=== PATIENT | female | born 1940 | race Hispanic/Latino ===

== ENCOUNTER → 2017-04-18 | Day surgery (SDC) | payer MEDICARE, BC ==
[~2017-04-18] MED LIST: ASPIRIN81 M2 PO; ASPIRIN81 MG; DEXILANT60 MG PO; FISH OIL300 MG PO; FOLIC ACID; GABAPENTIN300 MG PO; METFORMIN HCL500 MG PO; METHOCARBAMOL750 MG PO; METOPROLOL SUCC50 MG PO; MIDAZOLAM HCL 2 MG/2 ML VIAL ONE; MYRBETRIQ25 MG PO; NAPROXEN PO; NAPROXEN250 MG PO; NAPROXEN500 M1 PO; NEXIUM20 MG PO; NEXIUM40 MG; NEXIUM40 MG PO; NISOLDIPINE PO; NISOLDIPINE25.5 MG PO; OCUVITE TABLET1 EAC1 PO; PROPOFOL IV EMULSION 10 MG/ML 50 ML VIAL ONE; REGLAN10 MG PO; TEMAZEPAM15 MG PO; TRUE BIOTIC PO; ULTRAM 50MG50 MG PO; Z FOLIC ACID PO; Z.0.ENABLEX15 MG PO; Z.0.LEVOXYL50 MCG PO; Z.0.LIPITOR40 MG PO; Z.0.METOPROLOL SUCC5 PO; Z.0.OMEPRAZOLE40 MG PO; Z.0.ONE-A-DAY WOME1 PO; Z.0.TYLENOL ARTHRI65 PO; Z.0.ULTRAM50 MG PO; Z.1.LISINOPRIL-HCT1 PO; Z.2.METFORMIN HCL500 PO
== END | disposition home or self-care (01) ==
LOC: OR 06:07
PROVIDERS: ATTEND Internal Medicine Gastroenterology
DX: K92.1 Melena (principal); D12.5 Benign neoplasm of sigmoid colon; K58.9 Irritable bowel syndrome, unspecified; K57.30 Diverticulosis of large intestine without perforation or abscess without bleeding; K64.8 Other hemorrhoids; K21.9 Gastro-esophageal reflux disease without esophagitis; E03.9 Hypothyroidism, unspecified; E11.9 Type 2 diabetes mellitus without complications; I10 Essential (primary) hypertension; E78.5 Hyperlipidemia, unspecified; E66.3 Overweight; M19.90 Unspecified osteoarthritis, unspecified site; F41.9 Anxiety disorder, unspecified; F31.9 Bipolar disorder, unspecified; Z79.82 Long term (current) use of aspirin; Z68.25 Body mass index [BMI] 25.0-25.9, adult; Z80.0 Family history of malignant neoplasm of digestive organs
CPT/HCPCS: 36415; 45385; 82948; 88305; J2250; 45380

== ENCOUNTER → 2017-04-23 | Day surgery (SDC) | payer MEDICARE, BC ==
--- NOTE | 2017-04-15 12:22 | Diagnostic Imaging Report ---
PROCEDURE: Frontal and lateral views of the chest. COMPARISON: 08/24/15 INDICATIONS: PREOPERATIVE CHEST XRAY FOR COLONOSCOPY FINDINGS: Lines/tubes: None. Lungs: The lungs are well inflated and clear. There is no evidence of pneumonia or pulmonary edema. Minimal bibasilar subsegmental atelectasis. Pleura: There is no pleural effusion or pneumothorax. Heart and mediastinum: The heart and the mediastinum are normal. Bones: Limited evaluation due to generalized demineralization. No acute bony abnormality. Degenerative changes of the visualized spine. Evidence of lower thoracic vertebroplasty. Right diaphragmatic eventration. IMPRESSION: 1. No acute cardiopulmonary disease. 2. No significant interval change from prior exam. Dictated by: Levi Arredondo M.D. on 04/15/2017 at 12:30 Electronically approved by: Levi Arredondo M.D. on 04/15/2017 at 12:30
[2017-04-15 12:26] LABS: BASOPHILS # (AUTO) 0.1 (0.0-0.1); BASOPHILS % 0.6 % (0.0-1.0); EOSINOPHILS # (AUTO) 0.2 (0.0-0.4); EOSINOPHILS % 2.1 % (0.0-6.0); HEMATOCRIT 36.5 % (34.2-44.1); HEMOGLOBIN 12.1 g/dL (12.0-16.0); LYMPHOCYTES # (AUTO) 2.5 (1.0-3.2); LYMPHOCYTES % 31.7 % (18.0-39.1); MEAN CORPUSCULAR HEMOGLOBIN 30.9 pg (28-32); MEAN CORPUSCULAR HGB CONC 33.2 g/dL (31-35); MEAN CORPUSCULAR VOLUME 93.4 fL (81-99); MONOCYTES # (AUTO) 0.6 (0.2-0.8); MONOCYTES % 8.3 % (4.4-11.3); NEUTROPHILS # (AUTO) 4.4 (2.1-6.9); NEUTROPHILS % 56.8 % (38.7-80.0); PLATELET COUNT 342 x10e3/uL (140-360); RED BLOOD COUNT 3.91 x10e6/uL (3.6-5.1); RED CELL DISTRIBUTION WIDTH 13.3 % (11.7-14.4)
[2017-04-15 12:40] LABS: ANION GAP 11.9 mmol/L (8-16); BLOOD UREA NITROGEN 17 mg/dL (7-26); BUN/CREATININE RATIO 20 (6-25); CALCIUM 9.6 mg/dL (8.4-10.2); CARBON DIOXIDE 29 mmol/L (22-29); CHLORIDE 101 mmol/L (98-107); CREATININE, SERUM 0.84 mg/dL (0.57-1.11); EST GLOMERULAR FILTRATION RATE > 60 ML/MIN (60-); GLUCOSE 150 mg/dL (74-118); POTASSIUM 3.9 mmol/L (3.5-5.1); SODIUM 138 mmol/L (136-145)
[~2017-04-23] MED LIST changes: +BUPIVACAINE HCL 0.5% INJ 30 ML VIAL INJ ONE; +CEFAZOLIN SOD 1 GM VIAL ONE; +DEXAMETHASONE SOD PHOS INJ 4 MG/ML VIAL ONE; +EPHEDRINE SULFATE INJ 50 MG/10 ML SYR ONE; +FENTANYL CITRATE/PF 100MCG/2 ML INJ ONE; +LIDOCAINE HCL 2% LOCAL INJ 5 ML SDV VIAL INJ ONE; -MIDAZOLAM HCL 2 MG/2 ML VIAL ONE; +MUPIROCIN 2% OINT 22 GM TUBE ONE; +ONDANSETRON HCL INJ 2 MG/ML VIAL ONE; +PROPOFOL IV EMULSION 10 MG/ML 20 ML VIAL ONE; -PROPOFOL IV EMULSION 10 MG/ML 50 ML VIAL ONE; +SEVOFLURANE INHAL SOLN 250 ML PEN BTL ONE
--- NOTE | 2017-04-23 09:25 | Operative Report ---
DATE OF PROCEDURE: April 23, 2017 PREOPERATIVE DIAGNOSIS: Stenosing tenosynovitis of right thumb. POSTOPERATIVE DIAGNOSIS: Stenosing tenosynovitis of right thumb. OPERATION PERFORMED: Tenovaginotomy of right thumb finger. ANESTHESIA: General. HISTORY: The patient is a 76-year-old right hand-dominant female who presents with stenosing tenosynovitis of the right finger that is recalcitrant to conservative treatment. The risks, benefits, and alternatives of treatment were discussed with the patient and she is prepared to undergo the procedure as outlined. DESCRIPTION OF PROCEDURE: The patient was brought to the operating theater. After the induction of adequate general/regional anesthesia, the patient was prepped and draped in a supine position. A time out was performed by the entire operating room team. An oblique incision was marked out over the A1 alexx of the right finger. The upper extremity was exsanguinated, and a tourniquet was inflated to a pressure of 250 mmHg. The incision was made through the skin and subcutaneous tissues. All venous tributaries were controlled with bipolar cautery. The incision was deepened through the palmar tissues. The neurovascular bundles on the radial and ulnar sides of the flexor tendon sheath were identified and retracted away from the flexor tendon sheath and preserved. The A1 alexx of the affected finger was identified and incised longitudinally, taking care to protect and preserve the flexor tendons within the sheath. After the complete length of the alexx had been transected, the tendons were placed in a range of motion. There was noted to be good motion without any locking. The wound was then copiously irrigated with bacteriostatic saline and closed with 5-0 nylon in an interrupted horizontal mattress fashion. A Marcaine field block was performed at the operative site. The tourniquet was deflated. All the fingers pinked up nicely. A sterile bulky conforming bandage was applied to the hand, and the patient was returned to the recovery room in satisfactory condition and was discharged with a postoperative instruction sheet as well as a followup appointment. Job#: [id number] MD
== END | disposition home or self-care (01) ==
LOC: OR 05:17
PROVIDERS: ATTEND Plastic Surgery
DX: M65.311 Trigger thumb, right thumb (principal); E11.9 Type 2 diabetes mellitus without complications; I10 Essential (primary) hypertension; R00.1 Bradycardia, unspecified; F41.9 Anxiety disorder, unspecified; Z01.810 Encounter for preprocedural cardiovascular examination; Z01.812 Encounter for preprocedural laboratory examination; Z01.818 Encounter for other preprocedural examination; Z79.82 Long term (current) use of aspirin
CPT/HCPCS: 26055; 36415 ×2; 71046; 80048; 82948; 85025; 93005; J0690; J1100; J2001; J2405

== ENCOUNTER → 2017-04-30 | Outpatient (CLI) | payer MEDICARE, BC ==
[~2017-04-30] MED LIST changes: -BUPIVACAINE HCL 0.5% INJ 30 ML VIAL INJ ONE; -CEFAZOLIN SOD 1 GM VIAL ONE; -DEXAMETHASONE SOD PHOS INJ 4 MG/ML VIAL ONE; +DIATRIZOATE MEGL/DIATRIZOA SOD 30 ML BTL PO ONE; -EPHEDRINE SULFATE INJ 50 MG/10 ML SYR ONE; -FENTANYL CITRATE/PF 100MCG/2 ML INJ ONE; +IOPAMIDOL 300MG/ML 100 ML INFUS..BTL IV ONE; +IOPAMIDOL 370 MG/ML 200 ML INFUS..BTL INJ ONE; -LIDOCAINE HCL 2% LOCAL INJ 5 ML SDV VIAL INJ ONE; -MUPIROCIN 2% OINT 22 GM TUBE ONE; -ONDANSETRON HCL INJ 2 MG/ML VIAL ONE; -PROPOFOL IV EMULSION 10 MG/ML 20 ML VIAL ONE; -SEVOFLURANE INHAL SOLN 250 ML PEN BTL ONE; +SODIUM CHLORIDE 0.9% 250ML 500 ML ONE; +SODIUM CHLORIDE 0.9% 50ML 50 ML ONE
[2017-04-30 10:56] LABS: CREATININE, SERUM 1.01 mg/dL (0.57-1.11)
--- NOTE | 2017-04-30 13:30 | Diagnostic Imaging Report ---
PROCEDURE: CT ABDOMEN AND PELVIS WITH CONTRAST TECHNIQUE: The abdomen and pelvis were scanned utilizing a multidetector helical scanner from the diaphragm to the lesser trochanter after the IV administration of 100 cc of Isovue 370 and the oral administration of Gastroview and water. Coronal and sagittal multiplanar reformations were obtained. COMPARISON: CT abdomen and pelvis 04/09/2016. INDICATIONS: LEFT LOWER QUADRANT PAIN FINDINGS: LOWER THORAX: Normal. HEPATOBILIARY: No focal hepatic lesions. No biliary ductal dilatation. Cholecystectomy. SPLEEN: No splenomegaly. PANCREAS: No focal masses or ductal dilatation. ADRENALS: No adrenal nodules. KIDNEYS/URETERS: No hydronephrosis, stones, or solid mass lesions. PELVIC ORGANS/BLADDER: Hysterectomy. No right ovary is visualized. Normal left ovary. PERITONEUM / RETROPERITONEUM: No free air or fluid. LYMPH NODES: No lymphadenopathy. VESSELS: Atherosclerotic calcifications. GI TRACT: No distention or wall thickening. Appendectomy. Multiple diverticula are present in the descending and sigmoid colon, without adjacent soft tissue inflammatory changes. BONES AND SOFT TISSUES: Unremarkable. IMPRESSION: 1. No acute abnormality of the abdomen and pelvis. 2. Diverticulosis without evidence of diverticulitis. Dictated by: Von Dos Santos M.D. on 04/30/2017 at 13:39 Electronically approved by: Von Dos Santos M.D. on 04/30/2017 at 13:39
== END ==
LOC: RAD 08:18
PROVIDERS: ATTEND Internal Medicine
DX: R10.32 Left lower quadrant pain (principal); K57.90 Diverticulosis of intestine, part unspecified, without perforation or abscess without bleeding
CPT/HCPCS: 36415; 74177; 82565; 84520; J7050; Q9967

== ENCOUNTER 2018-04-18 16:31 | Inpatient (IN) | payer MEDICARE, BC ==
[~2018-04-18] VITALS: Ht 157.5 cm; Wt 60.1 kg
[~2018-04-18 16:31] MED LIST changes: -DIATRIZOATE MEGL/DIATRIZOA SOD 30 ML BTL PO ONE; -IOPAMIDOL 300MG/ML 100 ML INFUS..BTL IV ONE; -IOPAMIDOL 370 MG/ML 200 ML INFUS..BTL INJ ONE; -SODIUM CHLORIDE 0.9% 250ML 500 ML ONE; -SODIUM CHLORIDE 0.9% 50ML 50 ML ONE
--- OUTSIDE RECORDS SUMMARY | 2018-04-18 16:35 | XMS REPORT ---
Author Author [facility] Address Unknown Phone Unavailable Care Team Providers Care Domestic Helper Name Role Phone ANGELO, LATRELL Unavailable Unavailable JOSE ROUSSEAU Unavailable Unavailable Problems This patient has no known problems. Allergies, Adverse Reactions, Alerts This patient has no known allergies or adverse reactions. Medications This patient has no known medications. Results Test Description Test Time Test Comments Text Results Atomic Results Result Comments SCR MAMM BILATERAL JUAN CAD DIGITAL 2018-02-06 08:06:27 - SCR MAMM BILATERAL JUAN CAD DIGITALBILATERAL DIGITAL SCREENING MAMMOGRAM 3D/2D WITH CAD: 02/05/2018CLINICAL: Asymptomatic. Digital breast tomosynthesis was performed in addition to routine CC and MLO views. Current mammographic images were evaluated by either a [employer] M-Vu or a [employer] ImageChecker CAD (computer aided detection system). Comparison is made to exams dated 01/02/2017 mammogram, 12/29 mammogram, and 12/28/2014 mammogram - [facility]. The tissue of both breasts is predominantly fatty. There are benign vascular calcifications in both breasts. No suspicious mass, architectural distortion, malignant type calcification, or lymph node abnormality detected. Breast architecture is stable compared to prior exams.IMPRESSION: BENIGNThere is no mammographic evidence of malignancy. Resume annual screening mammography in one year. Oumar Menchaca M.D. ss/penrad:02/06/2018 08:06:27 Special Effects Specialist: Ragini BOO, [facility] sent: BIRADS 1-2 Normal Mammogram BI-RADS: [address] ABDOMEN/PELVIS W [address] [address] Patient Name: MARCELLA PORTER MR #: [id number] : 1940 Age/Sex: 76/F Req #: [id number] Adm Physician: Ordered by: LATRELL STEPHENS MD Report #: [id number] Location: [facility] Room/Bed: Procedure: [id number] CT/CT ABDOMEN/PELVIS W Exam Date: 04/30/17 Exam Time: 1134 REPORT STATUS: Signed PROCEDURE: CT ABDOMEN AND PELVIS WITH CONTRAST TECHNIQUE: The abdomen and pelvis were scanned utilizing a multidetector helical scanner from the diaphragm to the lesser trochanter after the IV administration of 100 cc of Isovue 370 and the oral administration of Gastroview and water. Coronal and sagittal multiplanar reformations were obtained. COMPARISON: CT abdomen and pelvis 04/09/2016. INDICATIONS: LEFT LOWER QUADRANT PAIN FINDINGS: LOWER THORAX: Normal. HEPATOBILIARY: No focal hepatic lesions. No biliary ductal dilatation. Cholecystectomy. SPLEEN: No splenomegaly. PANCREAS: No focal masses or ductal dilatation. ADRENALS: No adrenal nodules. KIDNEYS/URETERS: No hydronephrosis, stones, or solid mass lesions. PELVIC ORGANS/BLADDER: Hysterectomy. No right ovary is visualized. Normal left ovary. PERITONEUM / RETROPERITONEUM: No free air or fluid. LYMPH NODES: No lymphadenopathy. VESSELS: Atherosclerotic calcifications. GI TRACT: No distention or wall thickening. Appendectomy. Multiple diverticula are present in the descending and sigmoid colon, without adjacent soft tissue inflammatory changes. BONES AND SOFT TISSUES: Unremarkable. IMPRESSION: 1. No acute abnormality of the abdomen and pelvis. 2. Diverticulosis without evidence of diverticulitis. Dictated by: Taryn Day M.D. on 04/30/2017 at 13:39 Electronically approved by: Taryn Day M.D. on 04/30/2017 at 13:39 Dictated By: TARYN DAY MD [id number] Transcribed By: ASHLEY on 04/30/17 2473 COPY TO: LATRELL STEPHENS MD [place]ST [address] [facility] [address] Patient Name: MARCELLA PORTER MR #: [id number] : 1940 Age/Sex: 76/F Req #: [id number] Adm Physician: Ordered by: JOSE ROUSSEAU MD Report #: [id number] Location: OR Room/Bed: Procedure: [id number] DX/CHEST 2 VIEWS Exam Date: 04/15/17 Exam Time: 1203 REPORT STATUS: Signed PROCEDURE: Frontal and lateral views of the chest. COMPARISON: 08/24/15 INDICATIONS: PREOPERATIVE CHEST XRAY FOR COLONOSCOPY FINDINGS: Lines/tubes: None. Lungs: The lungs are well inflated and clear. There is no evidence of pneumonia or pulmonary edema. Minimal bibasilar subsegmental atelectasis. Pleura: There is no pleural effusion or pneumothorax. Heart and mediastinum: The heart and the mediastinum are normal. Bones: Limited evaluation due to generalized demineralization. No acute bony abnormality. Degenerative changes of the visualized spine. Evidence of lower thoracic vertebroplasty. Right diaphragmatic eventration. IMPRESSION: 1. No acute cardiopulmonary disease. 2. No significant interval change from prior exam. Dictated by: Levi Hauser M.D. on 04/15/2017 at 12:30 Electronically approved by: Levi Hauser M.D. on 04/15/2017 at 12:30 Dictated By: LEVI HAUSRE MD 1230 Transcribed By: ASHLEY on 04/15/17 1230 COPY TO: JOSE ROUSSEAU MD
[2018-04-18 19:05] LABS: BASOPHILS # (AUTO) 0.1 (0.0-0.1); BASOPHILS % 0.6 % (0.0-1.0); EOSINOPHILS # (AUTO) 0.3 (0.0-0.4); EOSINOPHILS % 3.2 % (0.0-6.0); HEMATOCRIT 39.7 % (34.2-44.1); HEMOGLOBIN 13.1 g/dL (12.0-16.0); LYMPHOCYTES # (AUTO) 2.4 (1.0-3.2); LYMPHOCYTES % 27.3 % (18.0-39.1); MEAN CORPUSCULAR HEMOGLOBIN 29.3 pg (28-32); MEAN CORPUSCULAR VOLUME 88.8 fL (81-99); MONOCYTES # (AUTO) 0.7 (0.2-0.8); MONOCYTES % 7.4 % (4.4-11.3); NEUTROPHILS # (AUTO) 5.4 (2.1-6.9); NEUTROPHILS % 61.3 % (38.7-80.0); PLATELET COUNT 270 x10e3/uL (140-360); RED BLOOD COUNT 4.47 x10e6/uL (3.6-5.1); RED CELL DISTRIBUTION WIDTH 16.5 % (11.7-14.4)
[2018-04-18 19:14] LABS: INR 0.92; PARTIAL THROMBOPLASTIN TIME 26.9 seconds (23.8-35.5); PROTHROMBIN TIME 13.2 seconds (11.9-14.5)
[2018-04-18 19:20] LABS: ANION GAP 17.2 mmol/L (8-16); CALCIUM 9.8 mg/dL (8.4-10.2); CREATININE, SERUM 1.07 mg/dL (0.57-1.11); POTASSIUM 3.2 mmol/L (3.5-5.1)
[2018-04-18 19:27] LABS: CREATINE KINASE MB 1.8 ng/mL (0-5.0)
--- NOTE | 2018-04-18 19:55 | Diagnostic Imaging Report ---
Examination: Single AP view of the chest. COMPARISON: Chest 2 views 04/15/2017 INDICATION: Shortness of breath, atrial fibrillation IMPRESSION: 1. Lines and Tubes: None 2. Lungs are well-inflated. No consolidation or effusion. 3. Cardiomediastinal silhouette is normal. Mild central pulmonary venous congestion. 4. No acute bony abnormalities. Signed by: Dr. Jose Mejia M.D. on 04/18/2018 7:51 PM
[2018-04-18] MEDS ORDERED: POTASSIUM CHLORIDE 20 MEQ TAB CR PO ONE (20:45)
[2018-04-18] MEDS ORDERED: ONDANSETRON HCL INJ 2MG/ML 2ML 2 MG/ML VIAL IV PRN (20:45)
[2018-04-18] MEDS ORDERED: DEXTROSE 50% SYRINGE 50 ML IV PRN (20:45)
[2018-04-18] MEDS ORDERED: ENOXAPARIN SODIUM INJ 100 MG/ML SYR SC SCH (20:45)
[2018-04-18] MEDS ORDERED: METOPROLOL TARTRATE 25 MG TAB PO ONE (21:00)
[2018-04-18] MEDS: FAMOTIDINE 20 MG/2 ML VIAL IV SCH (21:41)
[2018-04-18] MEDS: INSULIN LISPRO 100 UNIT/1 ML 3ML VIAL SQ SCH (21:42)
[2018-04-18] MEDS: ENOXAPARIN INJ 80 MG/0.8 ML SYR SC SCH (21:42)
[2018-04-18] MEDS ORDERED: METOPROLOL SUCC50 MG PO ×2 (22:33)
--- NOTE | 2018-04-18 22:45 | NUR ---
Patient arrived on floor via stretcher from ER. Report given to Serenity Mtz RN.
[2018-04-18 22:48] VITALS: BP 156/97
[2018-04-19] VITALS (9 sets, daily range): BP systolic 135–159; BP diastolic 75–98
[2018-04-19 04:03] LABS: CREATINE KINASE MB 1.3 ng/mL (0-5.0)
--- NOTE | 2018-04-19 06:00 | NUR ---
Admit and assessment completed.
[2018-04-19 06:34] LABS: BASOPHILS % 0.6 % (0.0-1.0); EOSINOPHILS # (AUTO) 0.3 (0.0-0.4); EOSINOPHILS % 5.3 % (0.0-6.0); HEMATOCRIT 34.2 % (34.2-44.1); HEMOGLOBIN 11.4 g/dL (12.0-16.0); LYMPHOCYTES # (AUTO) 2.1 (1.0-3.2); LYMPHOCYTES % 33.1 % (18.0-39.1); MEAN CORPUSCULAR HEMOGLOBIN 29.6 pg (28-32); MEAN CORPUSCULAR HGB CONC 33.3 g/dL (31-35); MEAN CORPUSCULAR VOLUME 88.8 fL (81-99); MONOCYTES # (AUTO) 0.6 (0.2-0.8); MONOCYTES % 8.5 % (4.4-11.3); NEUTROPHILS # (AUTO) 3.4 (2.1-6.9); NEUTROPHILS % 52.2 % (38.7-80.0); PLATELET COUNT 245 x10e3/uL (140-360); RED BLOOD COUNT 3.85 x10e6/uL (3.6-5.1); RED CELL DISTRIBUTION WIDTH 16.6 % (11.7-14.4)
[2018-04-19 06:45] LABS: ALANINE AMINOTRANSFERASE 13 IU/L (0-55); ALBUMIN 3.3 g/dL (3.5-5.0); ALKALINE PHOSPHATASE 68 IU/L (40-150); ANION GAP 14.5 mmol/L (8-16); BLOOD UREA NITROGEN 19 mg/dL (7-26); BUN/CREATININE RATIO 23 (6-25); CARBON DIOXIDE 25 mmol/L (22-29); CHLORIDE 104 mmol/L (98-107); CHOL/HDL RATIO 3.3 (3.0-3.6); CHOLESTEROL 131 MD/DL (0-199); CREATININE, SERUM 0.83 mg/dL (0.57-1.11); EST GLOMERULAR FILTRATION RATE > 60 ML/MIN (60-); GLUCOSE 112 mg/dL (74-118); HDL CHOLESTEROL 40 MG/DL (40-60); LDL CHOLESTEROL 62 MG/DL (60-130); MAGNESIUM 1.6 MG/DL (1.3-2.1); POTASSIUM 3.5 mmol/L (3.5-5.1); SODIUM 140 mmol/L (136-145); TRIGLYCERIDES 145 MG/DL (0-149)
[2018-04-19] MEDS ORDERED: CEFTRIAXONE SOD 1 GM/NS 50 ML 50 ML IV SCH (06:45)
[2018-04-19] MEDS ORDERED: POTASSIUM CHLORIDE 20 MEQ TAB CR PO STA (06:56)
[2018-04-19] MEDS ORDERED: LEVOTHYROXINE SODIUM 50 MCG TAB PO SCH (07:30)
[2018-04-19] MEDS: INSULIN LISPRO 100 UNIT/1 ML 3ML VIAL SQ SCH ×4 (07:30→21:00)
[2018-04-19] MEDS ORDERED: CEFTRIAXONE SOD 1 GM VIAL IV SCH (08:00)
--- NOTE | 2018-04-19 08:26 | History and Physical ---
Patient is here for feeling of dyspnea and also trembling inside. HISTORY OF PRESENTING ILLNESS: Ms. Elizabeth Phillips was in usual state of health until about 3 days prior to admission the patient started to have some trembling feeling inside, not quite sure was palpitations but the patient did feel the heart rate was elevated and came into the doctor's office yesterday of primary care physician, Dr. Knapp, and also had some dysuria and urinary symptoms. Patient had started taking her azo for her urinary symptoms of dysuria. Patient's urine was done in the office yesterday and was found to have leukocyte esterase and nitrites too. Patient's current symptoms are better after some fluids. The patient is feeling better right now. PAST MEDICAL HISTORY: History of hypertension, history of low back pain, history of hypothyroidism, history of reflux esophagitis, history of hyperlipidemia, history of insomnia and history of osteoarthritis and DJD. MEDICATIONS: She takes at home are acetaminophen 650 mg daily as needed, aspirin 81 mg, atorvastatin 40 mg at nighttime, esomeprazole 40 mg, folic acid 0.8 mg, levothyroxine 50 mcg, lisinopril/hydrochlorothiazide 20/12.5, methocarbamol 750 mg at nighttime, metoprolol 50 mg ER two tablets daily, Myrbetriq 25 mg daily, multivitamin, nisoldipine 25.5 mg extended release 24 hours, omega-3 acids, temazepam 50 mg, naproxen 500 mg at bedtime. PAST SURGICAL HISTORY: Includes history of partial hysterectomy, bladder suspension, cystocele and rectocele repair, cataract surgery, cholecystectomy, and tonsillectomy. SOCIAL HISTORY: No history of ETOH. No history of IV drug abuse. No history of smoking either. REVIEW OF SYSTEMS: Positive for shortness of breath. No nausea, vomiting, diarrhea. No chest pains. No constipation, no rectal bleeding, no hematochezia, no hematemesis. No diplopia, no blurry vision. No abdominal pain. No paraesthesia, hyperesthesias, or weakness. ALLERGIES: HYDROCODONE. FAMILY HISTORY: History of hypertension and diabetes in first-degree relatives. PHYSICAL EXAMINATION VITAL SIGNS: Pulse is 104, temperature is 97.3, blood pressure is 146/97. HEENT: Normocephalic, atraumatic. Pupils are reactive to light and accommodation. CVS: S1, S2 regular, tachy. NECK: No JVD present. ABDOMEN: Nontender, nondistended. EXTREMITIES: Positive for 1+ edema. LUNGS: Clear to auscultation bilaterally. IMAGING STUDIES: Chest x-ray shows lungs are well inflated. No consolidation or effusion. Cardiomediastinal silhouette is normal. LABORATORY VALUES: White count is 8.77, hemoglobin 13.1, hematocrit of 39.7, and RDW 16.5. Chemistries: Sodium 137, potassium is 3.2, BUN of 25, creatinine of 1.07, estimated GFR of 50. Patient's BNP was 487. Troponins x2 have been negative. ASSESSMENT 1. New-onset atrial fibrillation with rapid ventricular response. 2. Acute systolic congestive heart failure. 3. Possible urinary tract infection. 4. Hypothyroidism. PLAN: At this time, plan is to 1. Culture her urine. 2. Restart her beta blockade. 3. Patient needs to be on anticoagulation. 4. Check echocardiogram. 5. Cardiology, Dr. Garcia, has been consulted. 6. Continue monitoring the patient along with the consultants. 7. For further information, look in the chart and the patient will be expected to stay here for 1 to 2 days. Job#: [id number] KANG
[2018-04-19] MEDS ORDERED: METOPROLOL TARTRATE 25 MG TAB PO SCH (09:00)
[2018-04-19] MEDS ORDERED: LISINOPRIL 20 MG TAB PO SCH (09:00)
[2018-04-19] MEDS ORDERED: HYDROCHLOROTHIAZIDE 25 MG TAB PO SCH (09:00)
[2018-04-19] MEDS: ENOXAPARIN INJ 80 MG/0.8 ML SYR SC SCH ×2 (09:30→21:00)
[2018-04-19] MEDS: FAMOTIDINE 20 MG/2 ML VIAL IV SCH ×2 (09:30→21:00)
[2018-04-19] MEDS: METOPROLOL SUCCINATE 50 MG TAB XL PO SCH (09:30)
[2018-04-19] MEDS: PANTOPRAZOLE SOD 40 MG TABEC PO SCH (09:30)
--- NOTE | 2018-04-19 09:30 | NUR ---
ASSESSMENT COMPLETE NO DISTRESS NOTED, DENIES PAIN AT THIS TIME, R AC 20G NO SS OF INFILTRATION NOTED, RESP EVEN/UNLABORED, UPDATED ON POC VOICED UNDERSTANDING, CALL LIGHT IN REACH WILL CONTINUE TO MONITOR
[2018-04-19] MEDS: CEFTRIAXONE SOD 1 GM/NS 50 ML 50 ML IV SCH ×2 (10:45→22:03)
[2018-04-19 12:46] LABS: CREATINE KINASE 52 IU/L (29-168)
[2018-04-19] MEDS: FUROSEMIDE 40 MG TAB PO SCH (13:00)
[2018-04-19] MEDS: DIGOXIN 0.125 MG TAB PO SCH (13:00)
--- NOTE | 2018-04-19 13:21 | NUR ---
SOCIAL WORK INITIAL ASSESSMENT Welt Insole Channeler to bedside to discuss plan of care with patient/family. CM/SW role and care transitions discussed. Anticipated discharge plan discussed along with duration of care. CM/SW discussed patients right to make decisions in care. CM/SW work hours given. Patient lives: IN OWN HOUSE BY SELF Admit/Transfer: VIA ED FROM HOME POA/Emergency contact: DAUGHTER KATHYA [phone] Current/Previous Home Health: NONE PCP/Follow-up Care: ANGELO Current/Previous DME: ALIVIA Other Services: NONE Employment Status: RETIRED Areas of Concerns: NONE Referral Needs: NONE Education Needs: NONE IMM/MEMBRENO given and signed (if applicable): NA Goal for discharge: RETURN HOME CM/SW left business card at the bedside with contact information. Name and number was also written on the patients whiteboard. Patient verbalized understanding of discussion. CM will follow-up with ongoing discharge and transition of care needs.
--- NOTE | 2018-04-19 13:21 | NUR ---
Nutrition Screen Note RD Recommendation for Physician: Continue diet as ordered Plan of Care: RD following, monitoring for adequacy and tolerance Nutrition reason for involvement: Nutrition Risk Trigger-MST Primary Diagnose(s): Atrial fibrillation Ht: 62in Wt:153lbs BMI:28 kg/m2 IBW:110lbs RD Assessment:(04/19/2018) Initial encounter with patient. Patient reporting a good PO intake. Denies N, V, D nor has any difficulty chewing or swallowing. Current Diet: 1800 ADA Malnutrition Evaluation (04/19/2018) The patient does not meet criteria for a specified degree of malnutrition at this time. Will re-evaluate at follow-up as appropriate. Diet Education Needs Assessment: Diet education not indicated. Diet Adequacy: Meeting calorie needs, Meeting protein needs, Meeting fluid needs Tolerance: Tolerating PO Nutrition Care Level: brenda Romeo RD, LD, [facility]
[2018-04-19] MEDS: ACETAMINOPHEN 325 MG TAB PO PRN (17:08)
--- NOTE | 2018-04-19 18:37 | Consultation ---
DATE OF CONSULTATION: CARDIOLOGY CONSULTATION REASON FOR CONSULTATION: Atrial fibrillation. CONSULTING PHYSICIAN: Dr. Knapp. HISTORY OF PRESENT ILLNESS: Ms. Phillips is a 77-year-old female that is known to Dr. Don Garcia practice and has been in good health until recently. Patient reports that she was doing well; however, for about 3 days prior to her admission, she started developing acute shortness of breath, fatigue, and also palpitations that worsened the more she did. For these reasons, patient went to see Dr. Knapp and also had some complains of dysuria and urinary like symptoms. Urine in the office confirmed that she did have urinary tract infection, of which treatment was initiated; however, an EKG did show new onset of atrial fibrillation with rapid ventricular response. For this reason, patient was admitted. Patient denies any chest pain or palpitations. Does endorse some dizziness and also shortness of breath and fatigue and also endorses bilateral lower extremity edema that has been worsening. PAST MEDICAL HISTORY: Includes hypertension, low back pain, hypothyroidism, reflux, hyperlipidemia, insomnia, osteoarthritis, and degenerative joint disease. SURGICAL HISTORY: Partial hysterectomy, bladder suspension, cataract surgery, cholecystectomy, and tonsillectomy. SOCIAL HISTORY: Denies any alcohol use or illicit drug use. Patient is nonsmoker. REVIEW OF SYSTEMS: Negative except as mentioned above. ALLERGIES: PER ELECTRONIC CHART. FAMILY HISTORY: Noncontributory. PHYSICAL EXAM VITAL SIGNS: Temperature 98.3, pulse 114, respiratory rate 20, blood pressure 159/85, oxygen saturation 95% on room air. GENERAL: Alert and oriented x3, resting comfortably in bed. Does not appear to be in acute distress at this moment. LUNGS: Diminished breath sounds posterior lower lobes. Crackles posterior lower lobes, anterior are clear. CARDIOVASCULAR: Irregular rate and rhythm. ABDOMEN: Soft, nontender. Normoactive bowel sounds. LOWER EXTREMITIES: 2+ nonpitting edema. 2+ pedal pulses. CARDIOVASCULAR MEDICATIONS 1. Lisinopril 40 mg p.o. b.i.d. 2. Metoprolol 100 mg p.o. daily. 3. Lovenox 70 mg subcu q.12 hours. 4. Levothyroxine 50 mcg p.o. daily. 5. Atorvastatin 40 mg p.o. nightly. LABS: WBC 6.46, hemoglobin 11.4, hematocrit 34.2, platelets 245. Sodium 140, potassium 3.5, BUN 19, creatinine 0.83, calcium 9.0. AST 14, ALT 13. Troponin 0.001, CK-MB 1.30, creatine kinase 54. Triglycerides 125, total cholesterol 131, LDL 62, HDL 40. Chest x-ray on admission with lungs well inflated. Cardiomediastinal silhouette is normal. Mild central pulmonary venous congestion. TELEMETRY: Atrial fibrillation with rapid ventricular response. IMPRESSION 1. New onset atrial fibrillation. 2. Acute systolic heart failure. 3. Urinary tract infection. 4. Hypothyroidism. RECOMMENDATIONS: Echocardiogram has been completed, awaiting review. Recommendations to be follow. Continue the above-listed cardiac medications. In addition, add digoxin for rate control and also initiate Lasix for management of heart failure. Continue to support patient with oxygen. Maintain patient on telemetry at all times. Patient will need a left heart cath. This may be done as outpatient given normal cardiac enzymes at this time. We will continue to follow this patient very closely. Dictated by: Kesha Lutz NP Job#: [id number] REYNOLD
--- NOTE | 2018-04-19 19:43 | NUR ---
Received change of shift report from Am nurse. Walking rounds completed.
[2018-04-19] MEDS: TEMAZEPAM 15 MG CAP PO SCH (21:00)
[2018-04-19] MEDS ORDERED: NISOLDIPINE 25.5 MG PO SCH (21:00)
[2018-04-19] MEDS: ATORVASTATIN 40 MG TAB PO SCH (21:00)
[2018-04-20] VITALS (7 sets, daily range): BP systolic 124–164; BP diastolic 62–97
--- NOTE | 2018-04-20 | NUR ---
Patient received sleep meds and became confused and not sure where she was. Oriented patient to place and time. Assessed pt back to room. Patient states she is aware now. Family at bedside sleeping. Patient redirected back to bed.
--- NOTE | 2018-04-20 05:18 | NUR ---
Patient resting quitly at this time. Continue monitor.
[2018-04-20] MEDS: LEVOTHYROXINE SODIUM 50 MCG TAB PO SCH (06:00)
[2018-04-20 06:08] LABS: BASOPHILS % 0.5 % (0.0-1.0); EOSINOPHILS # (AUTO) 0.3 (0.0-0.4); EOSINOPHILS % 5.1 % (0.0-6.0); HEMATOCRIT 35.3 % (34.2-44.1); HEMOGLOBIN 12.3 g/dL (12.0-16.0); LYMPHOCYTES # (AUTO) 1.9 (1.0-3.2); MEAN CORPUSCULAR HGB CONC 34.8 g/dL (31-35); MEAN CORPUSCULAR VOLUME 86.1 fL (81-99); MONOCYTES # (AUTO) 0.5 (0.2-0.8); MONOCYTES % 8.6 % (4.4-11.3); NEUTROPHILS # (AUTO) 3.3 (2.1-6.9); NEUTROPHILS % 54.6 % (38.7-80.0); PLATELET COUNT 238 x10e3/uL (140-360); RED CELL DISTRIBUTION WIDTH 16.4 % (11.7-14.4)
[2018-04-20 06:24] LABS: ANION GAP 12.3 mmol/L (8-16); BLOOD UREA NITROGEN 12 mg/dL (7-26); BUN/CREATININE RATIO 16 (6-25); CARBON DIOXIDE 27 mmol/L (22-29); CHLORIDE 102 mmol/L (98-107); CREATININE, SERUM 0.74 mg/dL (0.57-1.11); EST GLOMERULAR FILTRATION RATE > 60 ML/MIN (60-); GLUCOSE 104 mg/dL (74-118); POTASSIUM 3.3 mmol/L (3.5-5.1); SODIUM 138 mmol/L (136-145)
[2018-04-20] MEDS ORDERED: POTASSIUM CHLORIDE 20 MEQ TAB CR PO STA (07:05)
--- NOTE | 2018-04-20 07:27 | Progress Note ---
DATE SUBJECTIVE: Patient is here for atrial fibrillation and urinary tract infection. Currently asymptomatic. No palpitations. No chest pains. Cardiology has seen the patient and the patient remains afebrile. PHYSICAL EXAMINATION VITAL SIGNS: Temperature is 97.0, pulse is ranging between 100s-110, respirations of 20, blood pressure is 124/73, and pulse oximetry is 94% on 2 liters of nasal cannula. HEENT: Normocephalic and atraumatic. Pupils are reactive to light and accommodation. CVS: S1 irregularly irregular. Tachycardic. LUNGS: Clear to auscultation. ABDOMEN: Nontender and nondistended. EXTREMITIES: No clubbing. No cyanosis. No edema. LABORATORY: Today's white count is 6.6, hemoglobin 12.3, hematocrit of 35.3. Chemistry shows sodium of 138, potassium of 3.3, BUN of 12, creatinine of 0.74. Cardiac enzymes have trended to be negative. MICROBIOLOGY RESULTS: Urine culture is pending. Echocardiogram on the patient shows EF of 45-50%, AFib, LVH and mild aortic insufficiency and mild MR and TR. ASSESSMENT 1. New onset atrial fibrillation. The patient is on metoprolol. 2. Acute systolic heart failure. The patient is started on Lasix. The patient will need anticoagulation. 3. Urinary tract infection. The patient is currently on Rocephin 1 gram q.12h. 4. Hypothyroidism. Continue with levothyroxine and the patient is on 70 mcg q.12h. with anticoagulation. PLAN: Digoxin has been added for rate control. We will continue to monitor the patient. GI prophylaxis and antihypertensives have been restarted. For further information, look in the chart. The patient's culture is pending and Dr. Knapp will see the patient tomorrow. Job#: [id number] LAUREN
[2018-04-20] MEDS: INSULIN LISPRO 100 UNIT/1 ML 3ML VIAL SQ SCH ×4 (07:30→21:00)
--- NOTE | 2018-04-20 08:15 | NUR ---
ASSESSMENT COMPLETE NO DISTRESS NOTED UPDATED ON POC VOICED UNDERSTANDING, DENIES CHEST PAIN AT THIS TIME, NOTIFIED BY TELE HR IN 116-150'S MEDICATED WITH MORNING MEDS, WILL NOTIFY , PT ASYMPTOMATIC AND HAD AMBULATED TO BATHROOM. NO OTHER CO VOICED CALL LIGHT IN REACH WILL CONTINUE OT MONITOR
[2018-04-20] MEDS: LISINOPRIL 20 MG TAB PO SCH (08:17)
[2018-04-20] MEDS: PANTOPRAZOLE SOD 40 MG TABEC PO SCH (08:17)
[2018-04-20] MEDS: FAMOTIDINE 20 MG/2 ML VIAL IV SCH ×2 (08:17→21:00)
[2018-04-20] MEDS: POTASSIUM CHLORIDE 20 MEQ TAB CR PO SCH (08:17)
[2018-04-20] MEDS: ENOXAPARIN INJ 80 MG/0.8 ML SYR SC SCH (08:17)
[2018-04-20] MEDS: FUROSEMIDE 40 MG TAB PO SCH (08:17)
[2018-04-20] MEDS: METOPROLOL SUCCINATE 50 MG TAB XL PO SCH ×2 (08:17→17:00)
[2018-04-20] MEDS: DIGOXIN 0.125 MG TAB PO SCH (08:17)
--- NOTE | 2018-04-20 08:30 | NUR ---
DR. MARSH PAGED RE: PT HIGH HR STATES HE WILL BE HERE.
[2018-04-20] MEDS: APIXABAN 5 MG TABLET PO SCH ×2 (09:00→17:00)
[2018-04-20] MEDS ORDERED: METOPROLOL TARTRATE INJ 1 MG/ML VIAL IV ONE (09:30)
[2018-04-20] MEDS: CEFTRIAXONE SOD 1 GM/NS 50 ML 50 ML IV SCH ×2 (09:48→21:30)
--- NOTE | 2018-04-20 11:32 | Progress Note ---
DATE: CARDIOLOGY PROGRESS NOTE SUBJECTIVE: Patient endorses palpitation and some shortness of breath this morning. Denies any chest pain. OBJECTIVE VITAL SIGNS: Temperature 97.0, pulse 112, respiratory rate 14, blood pressure 125/71, oxygen saturation 95% on 2 liters nasal cannula. GENERAL: Alert and oriented x3, resting comfortably in bed. Does not appear to be in any acute distress. Continues to wear oxygen. LUNGS: Diminished breath sounds posterior lower lobes with some crackles in the right lower lobe, otherwise clear to auscultation. CARDIOVASCULAR: Irregular rate and rhythm. Tachycardic. ABDOMEN: Soft, nontender. Normoactive bowel sounds. LOWER EXTREMITIES: Trace edema bilaterally. 2+ pedal pulses. CARDIOVASCULAR MEDICATIONS 1. Potassium chloride 20 mEq p.o. daily. 2. Digoxin 0.125 mg p.o. daily. 3. Lasix 40 p.o. daily. 4. Lisinopril 40 p.o. daily. 5. Atorvastatin 40 p.o. at bedtime. 6. Apixaban 5 mg p.o. b.i.d. 7. Metoprolol succinate 100 mg p.o. b.i.d. LABS: WBC 6.06, hemoglobin 12.3, hematocrit 35.3, platelets 236. Sodium 138, potassium 3.3, BUN 12, creatinine 0.74, GFR greater than 60, calcium 9.0. TELEMETRY: AFib with RVR. IMPRESSION 1. New onset atrial fibrillation with rapid ventricular response. 2. Acute systolic heart failure. 3. Urinary tract infection. 4. Hypothyroidism. 5. Hypertension. RECOMMENDATIONS: Eliquis initiated today. Continue to monitor any sings and symptoms of breathing. Continue to optimize care for heart failure. Medications adjusted for better rate control of AFib. Continue to monitor this patient on telemetry. Plans for coronary angiogram during this hospitalization given new systolic heart failure. IV metoprolol given this morning, awaiting response. We will continue to monitor this patient very closely. Dictated by: Kesha Lutz NP Job#: [id number] REYNOLD
--- NOTE | 2018-04-20 17:10 | NUR ---
IV INFILTRATED, 20G TO L WRIST X 1 STICK TOLERATED WELL,
--- NOTE | 2018-04-20 17:15 | NUR ---
NURSE CALLED TO RM PT HEART RATE 160'S SPOKE WITH DR MARSH RE: HR NEW ORDERS GIVEN.
--- NOTE | 2018-04-20 17:16 | NUR ---
HR 116, DENIES CHEST PAIN AT THIS TIME, CALL LIGHT IN REACH WILL CONTINUE TO MONITOR
[2018-04-20] MEDS ORDERED: DIGOXIN INJ 0.25 MG/ML 2 ML AMP IV ONE (17:30)
--- NOTE | 2018-04-20 19:18 | NUR ---
Received change of shift report from Am nurse. Walking rounds completed.
--- NOTE | 2018-04-20 19:49 | NUR ---
Patient upout of bed to bedside commode. AAOx3. Denies pain at this time.IV intact. Heart cath tomorrow and consent has been signed. Patient reminded of NPO status after MN. Patient verbalized understanding.
[2018-04-20] MEDS: TEMAZEPAM 15 MG CAP PO SCH (21:00)
[2018-04-20] MEDS: ATORVASTATIN 40 MG TAB PO SCH (21:00)
[2018-04-20] MEDS ORDERED: NISOLDIPINE 25.5 MG PO SCH (21:00)
[2018-04-21] VITALS (25 sets, daily range): BP systolic 81–158; BP diastolic 51–98
--- NOTE | 2018-04-21 05:06 | NUR ---
Patient resting quitly at this time. Continue monitor.
[2018-04-21] MEDS: LEVOTHYROXINE SODIUM 50 MCG TAB PO SCH ×2 (05:12→05:17)
[2018-04-21 06:37] LABS: ANION GAP 16.1 mmol/L (8-16); BLOOD UREA NITROGEN 12 mg/dL (7-26); BUN/CREATININE RATIO 15 (6-25); CALCIUM 9.7 mg/dL (8.4-10.2); CARBON DIOXIDE 29 mmol/L (22-29); CHLORIDE 99 mmol/L (98-107); CREATININE, SERUM 0.78 mg/dL (0.57-1.11); EST GLOMERULAR FILTRATION RATE > 60 ML/MIN (60-); GLUCOSE 92 mg/dL (74-118); POTASSIUM 4.1 mmol/L (3.5-5.1); SODIUM 140 mmol/L (136-145)
--- NOTE | 2018-04-21 07:00 | NUR ---
SHIFT REPORT RECEIVED FROM INVOICE CLASSIFICATION CLERK RN WHILE ROUNDING. PT DENIES NEEDS AT THIS TIME.
[2018-04-21] MEDS: INSULIN LISPRO 100 UNIT/1 ML 3ML VIAL SQ SCH ×4 (07:30→21:00)
[2018-04-21] MEDS: PANTOPRAZOLE SOD 40 MG TABEC PO SCH (09:00)
[2018-04-21] MEDS: FUROSEMIDE 40 MG TAB PO SCH (09:00)
[2018-04-21] MEDS: METOPROLOL SUCCINATE 50 MG TAB XL PO SCH ×2 (09:00→17:00)
[2018-04-21] MEDS: DIGOXIN 0.125 MG TAB PO SCH (09:00)
[2018-04-21] MEDS: APIXABAN 5 MG TABLET PO SCH ×2 (09:00→17:06)
[2018-04-21] MEDS: POTASSIUM CHLORIDE 20 MEQ TAB CR PO SCH (09:00)
[2018-04-21] MEDS: LISINOPRIL 20 MG TAB PO SCH (09:00)
[2018-04-21] MEDS: FAMOTIDINE 20 MG/2 ML VIAL IV SCH ×2 (09:24→21:06)
[2018-04-21] MEDS: CEFTRIAXONE SOD 1 GM/NS 50 ML 50 ML IV SCH ×2 (10:30→22:37)
[2018-04-21] MEDS ORDERED: FENTANYL CITRATE/PF 100MCG/2 ML INJ ONE (11:46)
[2018-04-21] MEDS ORDERED: MIDAZOLAM HCL 2 MG/2 ML VIAL ONE (11:46)
[2018-04-21] MEDS ORDERED: LIDOCAINE HCL 1% LOCAL INJ 20 ML VIAL ONE (11:47)
[2018-04-21] MEDS ORDERED: HEPARIN SOD/SOD CHLORIDE 2,000 ML ONE (11:47)
[2018-04-21] MEDS ORDERED: SODIUM CHLORIDE 0.9% 1000ML 1,000 ML ONE (11:47)
[2018-04-21] MEDS ORDERED: IOPAMIDOL 370 MG/ML 200 ML INFUS..BTL INJ ONE (11:47)
[2018-04-21] MEDS ORDERED: HEPARIN SOD (PORCINE) 1000 UNIT/ML 30ML ONE (12:09)
[2018-04-21] MEDS ORDERED: NITROGLYCERIN/D5W 200 MCG/ML 250 ML ONE (12:09)
--- NOTE | 2018-04-21 12:09 | NUR ---
PT OFF THE UNIT TO EYEDOTTER.
[2018-04-21] MEDS ORDERED: VERAPAMIL HCL 2.5 MG/ML 2 ML VIAL ONE (12:10)
[2018-04-21] MEDS ORDERED: PHENYLEPHRINE HCL 1% 10 MG/ML VIAL ONE ×2 (12:45→12:48)
[2018-04-21] MEDS ORDERED: NITROGLYCERIN 0.4 MG SUBL ONE (12:49)
[2018-04-21] MEDS ORDERED: ONDANSETRON HCL INJ 2MG/ML 2ML 2 MG/ML VIAL ONE (12:50)
[2018-04-21] MEDS ORDERED: METOPROLOL TARTRATE INJ 1 MG/ML VIAL ONE (12:58)
--- NOTE | 2018-04-21 13:47 | Operative Report ---
DATE OF PROCEDURE: April 21, 2018 INDICATIONS FOR PROCEDURE: Acute systolic heart failure, EF less than 30%. PRE-SEDATION ASSESSMENT: The patient's medical history, social history and prior experience with anesthesia was reviewed prior to the procedure. The patient was deemed to be an appropriate candidate for moderate sedation. The risks, the benefits, and alternatives to the procedure were explained to the patient and patient's informed consent was obtained prior to the procedure as documented in the medical record. MEDICATIONS: Please see nursing notes for medications administered during the procedure. PROCEDURES PERFORMED 1. Coronary angiography. 2. Left heart catheterization. PROCEDURE DETAILS: The patient was to the cardiac catheterization laboratory in the fasting state. Right wrist was prepped and draped in a sterile fashion. A 6-Ghanaian slender sheath was inserted into right radial artery using the modified Seldinger technique. Coronary angiography was performed using serial radial catheter, as well as EBU 3.5 5-Ghanaian guide to engage the left coronary artery. Left heart catheterization was performed using serial Leslie radial catheter. All catheters were removed over a wire. Multiple orthogonal views were obtained for each coronary artery. Procedure ended without any complications. SIGNIFICANT FINDINGS: Left main coronary artery was a large vessel. No significant coronary artery disease. LAD was a large vessel and wraps around the apex and 1 large diagonal. There is some mild plaquing and eccentric calcification of the midleft anterior descending artery. However, there is no obstructive coronary artery disease. Left circumflex is a nondominant vessel. Two medium size OM branches with mild plaquing without any significant obstructive CAD. RCA is a large dominant RCA. There is an 80% lesion in the proximal to mid-RCA that is severely calcified. There is a large RPDA and RPL system distally albeit diastolic pressure was 17. ESTIMATED BLOOD LOSS: 50 mL. GRAFTS/IMPLANTS: None. SPECIMENS REMOVED: None. COMPLICATIONS: None. RECOMMENDATIONS 1. TR band with 30 minutes deflation post procedure. 2. Transferred to ICU for better rate control of atrial fibrillation. 3. Plan for coronary intervention of the RCA with CSI atherectomy and stenting at a later date once the patient is hemodynamically improved with better rate control and blood pressure. 4. Followup in the clinic 2 weeks post discharge for further cardiovascular assessment and care. Job#: [id number] PA
--- NOTE | 2018-04-21 15:10 | NUR ---
PT TRANSFER TO ICU AFTER LINOTYPER.
--- NOTE | 2018-04-21 17:24 | NUR ---
MD Yuko Butterfield notified about pt's hypotension, medications held, and hematoma forming under TR band. New orders rec'd, saw R wrist and stated that site was stable, will continue to monitor.
--- NOTE | 2018-04-21 17:57 | NUR ---
Pt ambulated to toilet with assist, used own incontinence pads, confirms that all belongings from room 105 are in bags. Currently sitting in chair, states that she is neither hungry nor nauseous, drinking Diet Coke. Denies pain, SOB, NVD, dizziness.
[2018-04-21] MEDS: TEMAZEPAM 15 MG CAP PO SCH (21:06)
[2018-04-21] MEDS: ATORVASTATIN 40 MG TAB PO SCH (21:06)
[2018-04-22] VITALS (25 sets, daily range): BP systolic 86–141; BP diastolic 64–97
--- NOTE | 2018-04-22 | Progress Note ---
DATE: April 21, 2018 CARDIOLOGY PROGRESS NOTE SUBJECTIVE: No major events overnight. OBJECTIVE: VITAL SIGNS: Temperature 98.4, pulse 94, respiratory rate 24, blood pressure 115/67, satting 95% on 2 liters nasal cannula. GENERAL: Elderly white female, in no acute distress. CARDIOVASCULAR: Regular rate and rhythm. Tachycardic. LUNGS: Clear to auscultation. Diminished breath sounds bilaterally. ABDOMEN: Soft, nontender. EXTREMITIES: Lower extremity, trace edema, 2+ pedal pulses. NEURO AND PSYCH: Alert and oriented to person, place, and time. Normal affect. CARDIOVASCULAR MEDICATIONS: Reviewed. LABORATORY DATA: Reviewed. TELEMETRY DATA: Reviewed. ASSESSMENT AND PLAN: 1. New-onset atrial fibrillation with rapid ventricular response. 2. Acute systolic heart failure. 3. Urinary tract infection. 4. Hypothyroidism. 5. Hypertension. RECOMMENDATIONS: Continue Eliquis, private branch exchange operator to oral amiodarone as patient is now converted to sinus rhythm. Okay to transfer out of the ICU. Plan for coronary angiography prior to discharge. Thank you for this consult. Will continue to follow. Job#: [id number]
[2018-04-22 04:44] LABS: BASOPHILS % 0.5 % (0.0-1.0); EOSINOPHILS # (AUTO) 0.1 (0.0-0.4); EOSINOPHILS % 1.4 % (0.0-6.0); HEMOGLOBIN 12.6 g/dL (12.0-16.0); LYMPHOCYTES # (AUTO) 2.2 (1.0-3.2); LYMPHOCYTES % 32.6 % (18.0-39.1); MEAN CORPUSCULAR HGB CONC 32.3 g/dL (31-35); MONOCYTES # (AUTO) 0.8 (0.2-0.8); MONOCYTES % 11.6 % (4.4-11.3); NEUTROPHILS # (AUTO) 3.6 (2.1-6.9); NEUTROPHILS % 53.6 % (38.7-80.0); PLATELET COUNT 245 x10e3/uL (140-360); RED BLOOD COUNT 4.35 x10e6/uL (3.6-5.1); RED CELL DISTRIBUTION WIDTH 16.1 % (11.7-14.4)
[2018-04-22 04:46] LABS: MEAN CORPUSCULAR VOLUME 89.7 fL (81-99)
[2018-04-22 05:06] LABS: ANION GAP 14.7 mmol/L (8-16); BLOOD UREA NITROGEN 16 mg/dL (7-26); BUN/CREATININE RATIO 20 (6-25); CALCIUM 8.4 mg/dL (8.4-10.2); CARBON DIOXIDE 24 mmol/L (22-29); CHLORIDE 101 mmol/L (98-107); CREATININE, SERUM 0.79 mg/dL (0.57-1.11); EST GLOMERULAR FILTRATION RATE > 60 ML/MIN (60-); GLUCOSE 71 mg/dL (74-118); POTASSIUM 3.7 mmol/L (3.5-5.1); SODIUM 136 mmol/L (136-145)
[2018-04-22] MEDS: LEVOTHYROXINE SODIUM 50 MCG TAB PO SCH (06:06)
[2018-04-22] MEDS: INSULIN LISPRO 100 UNIT/1 ML 3ML VIAL SQ SCH ×4 (07:30→21:18)
[2018-04-22] MEDS: FAMOTIDINE 20 MG/2 ML VIAL IV SCH ×2 (08:02→21:17)
[2018-04-22] MEDS: APIXABAN 5 MG TABLET PO SCH ×2 (08:02→18:03)
[2018-04-22] MEDS: POTASSIUM CHLORIDE 20 MEQ TAB CR PO SCH (08:03)
[2018-04-22] MEDS: DIGOXIN 0.125 MG TAB PO SCH (08:04)
[2018-04-22] MEDS: PANTOPRAZOLE SOD 40 MG TABEC PO SCH (08:04)
[2018-04-22] MEDS: METOPROLOL SUCCINATE 50 MG TAB XL PO SCH (08:04)
[2018-04-22] MEDS: LISINOPRIL 20 MG TAB PO SCH (08:04)
[2018-04-22] MEDS: FUROSEMIDE 40 MG TAB PO SCH (08:04)
--- NOTE | 2018-04-22 08:37 | NUR ---
patient out of bed ambulated to bathroom. afib rvr. hr 160-170's. pt sitting in chair eating breakfast. family at bedside. instructed patient/family to decrease stimuli until po medications start working to lower hr. pt assisted back to bed. c/o of dizziness with elevated hr.
[2018-04-22] MEDS: CEFTRIAXONE SOD 1 GM/NS 50 ML 50 ML IV SCH ×2 (11:30→22:34)
[2018-04-22] MEDS ORDERED: SODIUM CHLORIDE 0.9% 250ML 250 ML ONE (11:44)
--- NOTE | 2018-04-22 20:02 | NUR ---
pt to go to asset availability leader in the morning and to be npo at midnight/. educated patient and family
--- NOTE | 2018-04-22 20:14 | NUR ---
nusing report given to maintenance technician 3rd shift
--- NOTE | 2018-04-22 20:24 | Progress Note ---
DATE: April 22, 2018 CARDIOLOGY PROGRESS NOTE SUBJECTIVE: No major events overnight. No chest pain. OBJECTIVE: VITAL SIGNS: Temperature 98.3, pulse 105, blood pressure 120/77, satting 95% on room air. GENERAL: Elderly female, in no acute distress. CARDIOVASCULAR: Irregular rate and rhythm. No murmurs, rubs, or gallops. LUNGS: Clear to auscultation bilaterally. ABDOMEN: Soft, nontender, nondistended. NEURO AND PSYCH: Alert and oriented to person, place, and time. Normal affect. CARDIOVASCULAR MEDICATIONS: Reviewed. LABORATORY DATA: Reviewed. IMAGING DATA: Reviewed. TELEMETRY DATA: Reviewed, shows AFib with RVR. ASSESSMENT AND PLAN: 1. Atrial fibrillation with rapid ventricular response. 2. Acute systolic heart failure. 3. Urinary tract infection. 4. Hypothyroidism. 5. Hypertension. 6. Coronary artery disease. RECOMMENDATIONS: Continue optimal medical therapy. Coronary angiography showed 1-vessel CAD of the RCA. Will plan for atherectomy and PCI of the RCA likely tomorrow. Up-titrate metoprolol given AFib with RVR. Thank you for this consult. Will continue to follow. Job#: [id number]
[2018-04-22] MEDS: ATORVASTATIN 40 MG TAB PO SCH (21:17)
[2018-04-22] MEDS: TEMAZEPAM 15 MG CAP PO SCH (21:17)
--- NOTE | 2018-04-22 23:27 | NUR ---
Patient disconnected iv tubing from iv while antibiotic infusing. Small wet area noted to patient gown, majority of antibiotic infused. Patient also removed coban wrap from iv site. New gown placed on patient and coban wrap to IV site, site flushes without difficulty and not leaking. Now states that IV needs to be raplaced because it "infiltrated" and that is why it was all wet earlier, attempted to explain to patient that this was not the case and it was wet because she had disconnected it and removed the bandage. States that she only took it off because it was all wet and infiltrated. Again tried to assure her that it was not infiltrated, patient became angry and stated "Fine I will just tell the doctor that you didn't want to do anything about it".
[2018-04-23] VITALS (23 sets, daily range): BP systolic 92–154; BP diastolic 57–107
--- NOTE | 2018-04-23 02:28 | NUR ---
OOB TO TOILET, HR BRIEFLY UP TO 150s, BACK TO BELOW 120 AFTER BACK IN BED
[2018-04-23] MEDS: METOPROLOL TARTRATE INJ 1 MG/ML VIAL IV PRN (02:33)
--- NOTE | 2018-04-23 04:41 | NUR ---
PATIENT BATHED WITH CHG WIPES IN PREPARATION FOR HEART CATH TODAY
[2018-04-23 04:55] LABS: BASOPHILS % 0.4 % (0.0-1.0); EOSINOPHILS # (AUTO) 0.2 (0.0-0.4); EOSINOPHILS % 1.9 % (0.0-6.0); HEMATOCRIT 38.2 % (34.2-44.1); HEMOGLOBIN 12.8 g/dL (12.0-16.0); LYMPHOCYTES # (AUTO) 2.1 (1.0-3.2); LYMPHOCYTES % 22.8 % (18.0-39.1); MEAN CORPUSCULAR HEMOGLOBIN 29.4 pg (28-32); MEAN CORPUSCULAR HGB CONC 33.5 g/dL (31-35); MEAN CORPUSCULAR VOLUME 87.8 fL (81-99); MONOCYTES % 11.1 % (4.4-11.3); NEUTROPHILS # (AUTO) 5.7 (2.1-6.9); NEUTROPHILS % 63.5 % (38.7-80.0); PLATELET COUNT 271 x10e3/uL (140-360); RED BLOOD COUNT 4.35 x10e6/uL (3.6-5.1); RED CELL DISTRIBUTION WIDTH 15.9 % (11.7-14.4)
[2018-04-23 05:10] LABS: ANION GAP 14.6 mmol/L (8-16); BLOOD UREA NITROGEN 14 mg/dL (7-26); BUN/CREATININE RATIO 17 (6-25); CALCIUM 8.8 mg/dL (8.4-10.2); CARBON DIOXIDE 25 mmol/L (22-29); CHLORIDE 96 mmol/L (98-107); CREATININE, SERUM 0.84 mg/dL (0.57-1.11); EST GLOMERULAR FILTRATION RATE > 60 ML/MIN (60-); GLUCOSE 123 mg/dL (74-118); POTASSIUM 3.6 mmol/L (3.5-5.1); SODIUM 132 mmol/L (136-145)
[2018-04-23] MEDS: LEVOTHYROXINE SODIUM 50 MCG TAB PO SCH (06:26)
[2018-04-23] MEDS: INSULIN LISPRO 100 UNIT/1 ML 3ML VIAL SQ SCH ×4 (07:30→21:00)
[2018-04-23] MEDS: DIGOXIN 0.125 MG TAB PO SCH (08:15)
[2018-04-23] MEDS: METOPROLOL SUCCINATE 50 MG TAB XL PO SCH (08:15)
[2018-04-23] MEDS: FAMOTIDINE 20 MG/2 ML VIAL IV SCH ×2 (08:15→21:07)
[2018-04-23] MEDS: APIXABAN 5 MG TABLET PO SCH (09:00)
[2018-04-23] MEDS: POTASSIUM CHLORIDE 20 MEQ TAB CR PO SCH (09:00)
[2018-04-23] MEDS: LISINOPRIL 20 MG TAB PO SCH (09:00)
[2018-04-23] MEDS: FUROSEMIDE 40 MG TAB PO SCH (09:00)
[2018-04-23] MEDS: PANTOPRAZOLE SOD 40 MG TABEC PO SCH (09:00)
[2018-04-23] MEDS: ACETAMINOPHEN 325 MG TAB PO PRN (10:15)
[2018-04-23] MEDS: CEFTRIAXONE SOD 1 GM/NS 50 ML 50 ML IV SCH ×2 (10:53→22:08)
--- NOTE | 2018-04-23 14:00 | NUR ---
pt departed ICU to laborer pipeline. transported by laborer pipeline nurse x 2 in stable condition
--- NOTE | 2018-04-23 14:00 | NUR ---
pt transferred to quality control lab technician with quality control lab technician nurse x 2 via bed in stable condition.
[2018-04-23] MEDS ORDERED: MIDAZOLAM HCL 2 MG/2 ML VIAL ONE ×2 (14:16→15:34)
[2018-04-23] MEDS ORDERED: FENTANYL CITRATE/PF 100MCG/2 ML INJ ONE ×2 (14:16→16:25)
[2018-04-23] MEDS ORDERED: HEPARIN SOD/SOD CHLORIDE 2,000 ML ONE (14:16)
[2018-04-23] MEDS ORDERED: SODIUM CHLORIDE 0.9% 1000ML 1,000 ML ONE ×2 (14:16→14:22)
[2018-04-23] MEDS ORDERED: LIDOCAINE HCL 1% LOCAL INJ 20 ML VIAL ONE (14:16)
[2018-04-23] MEDS ORDERED: VERAPAMIL HCL 2.5 MG/ML 2 ML VIAL ONE (14:25)
[2018-04-23] MEDS ORDERED: ATROPINE SULFATE 0.1 MG/ML 10ML SYR ONE (15:10)
[2018-04-23] MEDS ORDERED: NOREPINEPHRINE 8 MG/D5W 250 ML 250 ML ONE (16:17)
[2018-04-23] MEDS ORDERED: CLOPIDOGREL BISULFATE 75 MG TAB ONE (16:27)
[2018-04-23] MEDS ORDERED: ASPIRIN 325 MG TAB ONE (16:42)
--- NOTE | 2018-04-23 18:02 | NUR ---
Called Dr. Ty to confirm Boni order d/t pt recently rec'd Plavix 600mg and ASA 325mg. Rec'd T.O. to give Boni as ordered. LIYA Ty/Lico CESPEDES Addendum: 04/23/18 at 1810 by Arcelia Raya RN Boni conner\josh'dalila by Dr. Yuko Butterfield at this time
--- NOTE | 2018-04-23 18:30 | NUR ---
started withdrawing 2cc air from TR band. will remove 2cc Q 10min as ordered per Dr. Yuko Butterfield
--- NOTE | 2018-04-23 18:38 | Progress Note ---
DATE: April 23, 2018 CARDIOLOGY PROGRESS NOTE SUBJECTIVE: No major events overnight. OBJECTIVE: VITAL SIGNS: Temperature 98.7, heart rate 96, respiratory rate 23, blood pressure 139/88, satting 96% on 2 liters nasal cannula. GENERAL: Elderly female in no acute distress. CARDIOVASCULAR: Irregular rate and rhythm. No murmurs, rubs or gallops. LUNGS: Clear to auscultation bilaterally. ABDOMEN: Soft, nontender, nondistended. NEURO AND PSYCH: Alert and oriented to person, place and time. Normal affect. LABORATORY DATA: Reviewed. TELEMETRY DATA: Reviewed. INPATIENT MEDICATIONS: Reviewed. ASSESSMENT AND PLAN: 1. Atrial fibrillation with rapid ventricular response. 2. Acute systolic heart failure. 3. Urinary tract infection. 4. Hypothyroidism. 5. Hypertension. 6. Coronary artery disease with a 90% calcified lesion of the right coronary artery. PLAN: Continue optimal medical therapy. Status post atherectomy of the RCA. However, could not cross with a stent or a balloon. Will need a staged procedure with support in the future. Continue aspirin and Plavix. Will hold apixaban for now. Thank you for this consult. Will continue to follow. Job#: [id number] EV
--- NOTE | 2018-04-23 19:00 | NUR ---
Bedside report received from Arcelia CESPEDES. Pt received resting in bed AAOx3, placed pt on n/c 2L per pt reports. Pt diaper and pad changed at this time. No signs of distress noted. TR band 3ml air removed - no bleeding noted.
--- NOTE | 2018-04-23 19:15 | NUR ---
3ml air removed from TR band - no bleeding noted.
--- NOTE | 2018-04-23 19:30 | NUR ---
3ml air removed from TR band no bleeding noted.
--- NOTE | 2018-04-23 19:45 | NUR ---
2ml air removed from TR band, no bleeding noted.
--- NOTE | 2018-04-23 20:00 | NUR ---
TR band removed and gauze and coban pressure dressing applied. No bleeding noted. Capillary refill to fingers <3 seconds, radial pulse present.
--- NOTE | 2018-04-23 20:30 | NUR ---
Right wrist dressing remains intact, no bleeding noted.
[2018-04-23] MEDS: ATORVASTATIN 40 MG TAB PO SCH (21:07)
[2018-04-23] MEDS: TEMAZEPAM 15 MG CAP PO SCH (21:07)
--- NOTE | 2018-04-23 21:30 | NUR ---
Pt assisted to toilet, voided, gas, and small BM smear. Pt assisted back to bed. No distress noted. Pt on 2L n/c spo2 98%.
[2018-04-24] VITALS (21 sets, daily range): BP systolic 92–156; BP diastolic 54–103
--- NOTE | 2018-04-24 01:50 | Operative Report ---
DATE OF PROCEDURE: April 23, 2018 CARDIOLOGY CATHETERIZATION REPORT INDICATION FOR PROCEDURE: Cardiomyopathy and coronary artery disease. PREPROCEDURE ASSESSMENT: The risks, the benefits, and alternatives of the procedure were explained to the patient and her family prior to the procedure. Informed consent was obtained as documented in the medical record. Patient's medical history, social history, prior experience with anesthesia were reviewed prior to the procedure, and patient was deemed to be an appropriate candidate for moderate sedation. PROCEDURES PERFORMED: 1. Coronary angiography, right radial approach. 2. Percutaneous coronary intervention to the right coronary artery with atherectomy with Diamondback 360 device. PROCEDURE DETAILS: Patient was brought to the cardiac catheterization laboratory in a fasting state. Right wrist was prepped and draped in a sterile fashion. Access to the right radial artery was obtained using modified Seldinger technique. For PCI of the RCA, initially we used JR4 guide, although the guide was able to engage the RCA, there was little to no guide support, so we exchanged this for DAVIDsTEA right guide. The lesion was wired using a ChoICE PT floppy 0.014 guidewire. We attempted to cross the lesion with 2.0 x 12 mm balloon to exchange for a ViperWire, however, we were unable to cross with the balloon. We exchanged the ChoICE PT for guidewire. We were still unable to cross with a small 2.0 x 12 mm balloon. No microcatheters were available to attempt to crossing with a microcatheter. We then decided to add additional support by using a GuideLiner, however, despite using a GuideLiner and a 1.2 mm balloon, we were still unable to cross the lesion. We then decided to wire the lesion using the ViperWire to directly perform atherectomy. We were successfully able to wire the lesion with a ViperWire and performed atherectomy at low speed in 10-second intervals. We made some progress, however, patient became bradycardic and very hypotensive with even short attempt to perform atherectomy. Procedure at this point was aborted. We attempted to pass a balloon after performing partial atherectomy of the RCA, however, we were still unable to advance even the smallest balloon available to us despite using josue wire and GuideLiner techniques. Procedure at this point was aborted. There was CAPRICE-3 flow at the end of the procedure in the RCA. Patient was asymptomatic. Blood pressure and heart rate improved without any issues. All catheters were removed over a wire, and access site was closed using a TR band device. ESTIMATED BLOOD LOSS: 100 mL. SPECIMEN REMOVED: None. GRAFTS AND IMPLANTS: None. COMPLICATIONS: None. CONCLUSION: 1. Partial atherectomy of the mid right coronary artery using CSI Diamondback 360 device successful, however, unable to cross with a balloon or stent afterwards, requires further debulking, however, this will require a ventricular support device as well as probable rotablator atherectomy. Will plan for this for next week at a different facility as this equipment is not available at this institution. 2. Continue dual antiplatelet therapy with aspirin 81 and Plavix 75 daily. Will hold apixaban for now given high risk of bleeding with triple therapy. Observe overnight in the intensive care unit. If doing well, will plan for transfer out of the intensive care unit tomorrow. After medical therapy is optimized, patient to be discharged on Saturday or Saturday. 3. Follow up in clinic 2 days after discharge for further discussion and finding of high-risk percutaneous coronary intervention with Impella support. Thank you for this consult. Will continue to follow. Job#: [id number]
[2018-04-24] MEDS: METOPROLOL TARTRATE INJ 1 MG/ML VIAL IV PRN ×2 (04:21→13:05)
[2018-04-24] MEDS: LEVOTHYROXINE SODIUM 50 MCG TAB PO SCH (06:00)
--- NOTE | 2018-04-24 07:24 | Progress Note ---
DATE: SUBJECTIVE: This patient is here for new-onset atrial fibrillation, acute systolic heart failure, hypothyroidism, and urinary tract infection. Patient underwent a cardiac cath yesterday by Dr. Butterfield. Findings as per chart. PHYSICAL EXAMINATION: VITAL SIGNS: Today, temperature is afebrile, 98.2; pulse of 112; respiration of 19; blood pressure is 126/69; pulse oximetry at 98% on 2 liters of nasal cannula. HEENT: Normocephalic, atraumatic. Pupils are reactive to light and accommodation. CARDIOVASCULAR: Irregularly irregular, is tachycardic. LUNGS: Clear to auscultation bilaterally. ABDOMEN: Soft, nontender, nondistended. EXTREMITIES: No clubbing, no cyanosis. Trace edema. NEURO-PSYCH: Normal. No sensory motor deficits noted. LABORATORY VALUES: Reviewed, and telemetry is AFib with RVR at this time. ASSESSMENT: 1. Atrial fibrillation with rapid ventricular response. Patient is status post cardiac catheterization, did find 90% calcification of the right coronary artery, status post attempted atherectomy status, and was unable to stent the right coronary artery. 2. Systolic heart failure, acute. 3. Urinary tract infection. 4. Hypothyroidism. 5. Hypertension. PLAN: To continue with Plavix and aspirin. Continue with metoprolol for rate control. Patient is on ceftriaxone for her urinary tract infection. Urine culture showed no growth in 34 to 48 hours. Will discontinue the Rocephin at this time. Further recommendations per clinical course and also will depend on cardiology. Patient can be moved out of the ICU today. Job#: [id number]
[2018-04-24] MEDS: INSULIN LISPRO 100 UNIT/1 ML 3ML VIAL SQ SCH ×4 (07:30→20:24)
[2018-04-24] MEDS: FUROSEMIDE 40 MG TAB PO SCH (08:11)
[2018-04-24] MEDS: POTASSIUM CHLORIDE 20 MEQ TAB CR PO SCH (08:11)
[2018-04-24] MEDS: LISINOPRIL 20 MG TAB PO SCH (08:11)
[2018-04-24] MEDS: METOPROLOL SUCCINATE 50 MG TAB XL PO SCH (08:11)
[2018-04-24] MEDS: PANTOPRAZOLE SOD 40 MG TABEC PO SCH (08:11)
[2018-04-24] MEDS: CLOPIDOGREL BISULFATE 75 MG TAB PO SCH (08:11)
[2018-04-24] MEDS: DIGOXIN 0.125 MG TAB PO SCH (08:11)
[2018-04-24] MEDS: FAMOTIDINE 20 MG/2 ML VIAL IV SCH ×2 (08:11→20:28)
[2018-04-24] MEDS: ASPIRIN 81 MG CHEW TAB PO SCH (09:57)
[2018-04-24] MEDS ORDERED: FUROSEMIDE INJ 10 MG/ML 4 ML VIAL IV ONE (10:00)
--- NOTE | 2018-04-24 15:33 | NUR ---
Nutrition Screen Note RD Recommendation for Physician: -Continue cardiac diet as ordered Plan of Care: RD following, monitoring for adequacy and tolerance Nutrition reason for involvement: Follow up Primary Diagnose(s): Atrial fibrillation Hx: hypertension, low back pain, hypothyroidism, reflux esophagitis, hyperlipidemia, insomnia and osteoarthritis and DJD Ht: 62in Wt:153lbs BMI:28 kg/m2 IBW:110lbs RD Assessment: (04/24/2018) Chart reviewed. Pt was discussed during rounds. Pt underwent a cardiac cath yesterday. Currently on Lasix. Visited pt in the room. Pt reports appetite being not so good due to diet preferences. Encouraged family to bring foods from home. No GI complains noted. LBM 04/24. Pt denies any chewing or swallowing difficulty. No recent weight loss reported. Will continue to monitor and follow. (04/19/2018) Initial encounter with patient. Patient reporting a good PO intake. Denies N, V, D nor has any difficulty chewing or swallowing. Current Diet: cardiac diet Malnutrition Evaluation (04/19/2018) The patient does not meet criteria for a specified degree of malnutrition at this time. Will re-evaluate at follow-up as appropriate. Diet Education Needs Assessment: Diet education not indicated. Diet Adequacy: Not meeting calorie needs, Not meeting protein needs Tolerance: Tolerating PO Nutrition Care Level: brenda Stringer, MS, RD, LD
[2018-04-24] MEDS ORDERED: METOPROLOL SUCCINATE 50 MG TAB XL PO SCH (17:00)
--- NOTE | 2018-04-24 19:35 | Progress Note ---
DATE: April 24, 2018 CARDIOLOGY PROGRESS NOTE SUBJECTIVE: Had attempted atherectomy of her RCA yesterday. No chest pain or shortness of breath. OBJECTIVE: VITAL SIGNS: Temperature 98.5, pulse 98, respiratory rate 20, blood pressure 156/89, satting 99% on room air. GENERAL: Elderly female, in no acute distress. CARDIOVASCULAR: Irregular, tachycardic. No murmurs, rubs, or gallops. LUNGS: Clear to auscultation. ABDOMEN: Soft, nontender, nondistended. NEURO AND PSYCH: Alert and oriented to person, place, and time. Normal affect. INPATIENT MEDICATIONS: Reviewed. LABORATORY DATA: Reviewed. IMAGING DATA: Reviewed. INPATIENT CARDIOVASCULAR MEDICATIONS: Reviewed. TELEMETRY DATA: Reviewed, shows AFib with RVR. ASSESSMENT: 1. Atrial fibrillation with rapid ventricular response. 2. Coronary artery disease. 3. Acute systolic heart failure. 4. Urinary tract infection. 5. Hypothyroidism. 6. Hypertension. PLAN: Continue optimal medical therapy. Will increase metoprolol to 150 mg b.i.d. Continue aspirin and Plavix. Will hold apixaban for now given high risk of bleeding with triple therapy. Thank you for this consult. Will continue to follow. Job#: [id number]
--- NOTE | 2018-04-24 19:45 | NUR ---
ASSISTED PATIENT TO COMMODE AND HEART RATE WENT TO 170s INFORMED HER THAT I WILL NOT BE LETTING HER GET UP OUT OF BED ANYMORE ON MY SHIFT
[2018-04-24] MEDS: ATORVASTATIN 40 MG TAB PO SCH (20:28)
[2018-04-24] MEDS: TEMAZEPAM 15 MG CAP PO SCH (20:29)
--- NOTE | 2018-04-24 23:00 | NUR ---
SPONGE BATH GIVEN WITH LINEN CHANGE, PLACED A PUREWICK INBETWEEN THE VAGINAL LABIAS AND PLACED A BRIEF. PLACED SCDs ON PATIENT AFTER BATH WAS GIVEN. WHEN PATIENT WAS BRUSHING HER TEETH WHILE IN BED HER HEART RATE WENT TO THE 130s. SHE HAD NO COMPLAINTS OF CHEST PAIN WHEN HEART RATE WENT UP AT THIS TIME AND NO COMPLAINTS WHEN HER HEART RATE WENT TO THE 170s EARLIER. I STARTED ANOTHER 20G IV HEPLOCK TO RIGHT AC ATTEMPTED ONLY ONCE AND PATIENT TOLERATED WELL.
[2018-04-25] VITALS (16 sets, daily range): BP systolic 101–145; BP diastolic 58–95
[2018-04-25] MEDS: METOPROLOL TARTRATE INJ 1 MG/ML VIAL IV PRN (00:10)
--- NOTE | 2018-04-25 06:25 | NUR ---
DR ELLSWORTH ROUNDED FOR THE PATIENTs ATTENDING AT THIS TIME. INFORMED HIM OF PATIENTs HR WHEN SHE IS DOING ANY KIND OF ACTIVITY IN BED AND HR HIGHER WHEN UP OUT OF BED. ALSO GAVE HIM A BRIEF UPDATE ON STATUS AND PLANS THAT PATIENT TO BE TRANSFERRED TO FLOOR WITH TELEMETRY TODAY AND ONCE STABLE TO BE DISCHARGED AND THEN PATIENT TO BE SENT TO [facility] FOR THE 3RD ATTEMPT ON HEART CATH. I ASKED FOR CLARIFICATION IF PATIENT WILL BE DISCHARGED FROM HERE THEN FOR PATIENT TO GO TO [facility] OR IF PATIENT TO BE TRANSFERRED FROM HERE AND SENT TO [facility], DR ELLSWORTH INFORMED THAT HE WILL SPEAK TO DR MARTINEZ CONCERNING THE TRANSFER TO [facility]. DR ELLSWORTH INFORMED ME TO PLACE ORDERS FOR HER TO BE TRANSFERRED TO [facility] WITH TELE
--- NOTE | 2018-04-25 06:47 | Progress Note ---
DATE: The patient is here for AFib with RVR. The patient had a cardiac cath with balloon. It was unsuccessful to stent the RCA. The patient currently still complains of palpitations on walking to the bathroom. Telemetry showed AFib with RVR at 120 on minimal exertion. The patient is currently asymptomatic. No chest pains. No shortness of breath. No palpitations even. There are no other complaints otherwise. OBJECTIVE VITAL SIGNS: Temperature is 98.2, pulse is 98, respirations of 18, blood pressure is 136/87, pulse oximetry of 98% on room air. HEENT: Normocephalic and atraumatic. Pupils are reactive to light and accommodation. CV: S1 and S2 regular. Tachycardic. ABDOMEN: Nontender and nondistended. EXTREMITIES: No clubbing. No cyanosis. No edema. MEDICATIONS 1. Temazepam at nighttime. 2. Atorvastatin 40. 3. Famotidine 20. 4. Insulin protocol. 5. Metoprolol 2.5 mg IV as needed. 6. She is also on metoprolol 150 mg twice a day. 7. Levothyroxine 15 mcg. 8. Furosemide 40 mg. 9. The patient is currently also on digoxin 0.125 mg. 10. Potassium chloride. LABORATORY VALUES: From yesterday, are normal. Chemistry: Blood sugars are holding. Coags are normal. The patient has been taken off Eliquis at this time. ASSESSMENT 1. Atrial fibrillation with rapid ventricular response. 2. Coronary artery disease: Status post cardiac catheterization and angiography. 3. Acute systolic heart failure. 4. Urinary tract infection. 5. Hypothyroidism. 6. Hypertension. PLAN: Continue the metoprolol 150 mg twice a day, digoxin 0.125 mg daily. The patient is also on diuretic. Eliquis has been taken off. For urinary tract infection, the patient's Rocephin has been stopped. Hypertension, continue on antihypertensive medications and CV medications. Further recommendations per clinical course. Will continue to monitor the patient. The plan is to discharge the patient to the floor and/or to medical facility with ability to do the staged procedure. Further recommendations per clinical course. Will discuss with Dr. Butterfield. Job#: [id number] VT
[2018-04-25] MEDS: LEVOTHYROXINE SODIUM 50 MCG TAB PO SCH (07:13)
[2018-04-25] MEDS: INSULIN LISPRO 100 UNIT/1 ML 3ML VIAL SQ SCH ×4 (07:30→20:28)
[2018-04-25] MEDS: DIGOXIN 0.125 MG TAB PO SCH (08:40)
[2018-04-25] MEDS: FUROSEMIDE 40 MG TAB PO SCH (08:40)
[2018-04-25] MEDS: POTASSIUM CHLORIDE 20 MEQ TAB CR PO SCH (08:40)
[2018-04-25] MEDS: CLOPIDOGREL BISULFATE 75 MG TAB PO SCH (08:40)
[2018-04-25] MEDS: LISINOPRIL 20 MG TAB PO SCH (08:40)
[2018-04-25] MEDS: FAMOTIDINE 20 MG/2 ML VIAL IV SCH ×2 (08:40→20:27)
[2018-04-25] MEDS: ASPIRIN 81 MG CHEW TAB PO SCH (08:40)
[2018-04-25] MEDS: METOPROLOL SUCCINATE 50 MG TAB XL PO SCH ×2 (08:41→16:45)
[2018-04-25] MEDS: PANTOPRAZOLE SOD 40 MG TABEC PO SCH (08:41)
--- NOTE | 2018-04-25 13:17 | NUR ---
RCD PT FROM ICU BY BED PT IS ALERT AND ORIENTED VITALS CHECKED PT RESTING ON BED FAMILY AT BED SIDE BED LOW AND LOCKED CALL LIGHT IN REACH
--- NOTE | 2018-04-25 13:25 | NUR ---
PATIENT TRANSFERRED TO ROOM 213 IN STABLE CONDITION
--- NOTE | 2018-04-25 16:11 | Progress Note ---
DATE: April 25, 2018 SUBJECTIVE: No major events overnight. No chest pain or shortness of breath. OBJECTIVE VITAL SIGNS: Temperature afebrile, pulse 94, respiratory rate 18, blood pressure 110/70, satting 98% on room air. GENERAL: Elderly female in no acute distress. CARDIOVASCULAR: Irregular rate and rhythm. No murmurs, rubs or gallops. LUNGS: Clear to auscultation. Decreased breath sounds at the bases. ABDOMEN: Soft, nontender, nondistended. NEURO AND PSYCH: Alert and oriented to person, place, and time. Normal affect. INPATIENT MEDICATIONS: Reviewed. LABORATORY DATA: Reviewed. IMAGING DATA: Reviewed. TELEMETRY DATA: Reviewed, shows AFib, rate controlled. ASSESSMENT 1. Atrial fibrillation with rapid ventricular response. 2. Coronary artery disease of the right coronary artery, status post unsuccessful atherectomy. 3. Acute systolic heart failure. 4. Urinary tract infection. 5. Hypothyroidism. 6. Hypertension. PLAN: Continue optimal medical therapy including aspirin and Plavix. Increase metoprolol to 150 mg b.i.d. Will hold apixaban for now until PCI to the RCA is completed at which point we will switch to Plavix and apixaban given high risk of bleeding. Thank you for this consult. Will continue to follow. Job#: [id number]
[2018-04-25] MEDS: ACETAMINOPHEN 325 MG TAB PO PRN (16:45)
--- NOTE | 2018-04-25 18:16 | NUR ---
FAMILY REQUESTED TO KNOW WHAT IS THE PLAN TO THE PT PAGED AND TALKED DR RENTERIA HE SAID HE HAS NO IDEA HE WILL FINDOUT
--- NOTE | 2018-04-25 18:42 | NUR ---
PT RESTING ON BED BED SIDE REPORT GIVEN TO ONCOMING NURSE
--- NOTE | 2018-04-25 19:10 | NUR ---
Patient is awake watching television in bed. Alert and verbal. No complaints at this time.
[2018-04-25] MEDS: TEMAZEPAM 15 MG CAP PO SCH (20:27)
[2018-04-25] MEDS: ATORVASTATIN 40 MG TAB PO SCH (20:27)
[2018-04-26 00:09] VITALS: BP 129/74
--- NOTE | 2018-04-26 02:15 | NUR ---
DRESSING TO IJ TRIPLE LUMEN CHANGED.
--- NOTE | 2018-04-26 02:16 | NUR ---
DISCARD PREVIOUS NOTE. NOTE FOR DIFFERENT PATIENT.
[2018-04-26] MEDS: LEVOTHYROXINE SODIUM 50 MCG TAB PO SCH (05:02)
[2018-04-26 05:59] VITALS: BP 136/71
--- NOTE | 2018-04-26 07:00 | NUR ---
SHIFT CHANGE REPORT RECEIVED FROM NIGHT RN WHILE ROUNDING. PT DENIES NEEDS AT THIS TIME.
--- NOTE | 2018-04-26 07:07 | NUR ---
REPORT GIVEN TO ONCOMING NURSE.
[2018-04-26] MEDS: INSULIN LISPRO 100 UNIT/1 ML 3ML VIAL SQ SCH ×3 (07:30→16:30)
--- NOTE | 2018-04-26 08:00 | NUR ---
OK WITH DR. ELLSWORTH TO DISCHARGE HOME IF CLEARED BY CARDIOLOGY.
[2018-04-26 08:11] VITALS: BP 131/86
[2018-04-26 08:16] LABS: BASOPHILS % 0.5 % (0.0-1.0); EOSINOPHILS # (AUTO) 0.3 (0.0-0.4); EOSINOPHILS % 3.5 % (0.0-6.0); HEMATOCRIT 37.2 % (34.2-44.1); HEMOGLOBIN 13.3 g/dL (12.0-16.0); LYMPHOCYTES # (AUTO) 2.2 (1.0-3.2); LYMPHOCYTES % 27.8 % (18.0-39.1); MEAN CORPUSCULAR HEMOGLOBIN 30.4 pg (28-32); MEAN CORPUSCULAR HGB CONC 35.8 g/dL (31-35); MEAN CORPUSCULAR VOLUME 84.9 fL (81-99); MONOCYTES # (AUTO) 0.7 (0.2-0.8); MONOCYTES % 9.5 % (4.4-11.3); NEUTROPHILS # (AUTO) 4.6 (2.1-6.9); NEUTROPHILS % 58.3 % (38.7-80.0); PLATELET COUNT 318 x10e3/uL (140-360); RED BLOOD COUNT 4.38 x10e6/uL (3.6-5.1)
[2018-04-26 08:34] LABS: ANION GAP 19.5 mmol/L (8-16); CALCIUM 9.1 mg/dL (8.4-10.2); CREATININE, SERUM 0.93 mg/dL (0.57-1.11); POTASSIUM 3.5 mmol/L (3.5-5.1)
--- NOTE | 2018-04-26 08:40 | Progress Note ---
DATE: SUBJECTIVE: This patient is here for atrial fibrillation with rapid ventricular response, history of coronary artery disease with right coronary artery disease status post unsuccessful atherectomy. Patient has no complaints. No chest pains, no shortness of breath. OBJECTIVE VITAL SIGNS: Temperature is 96.7, pulse of 95, respirations of 17, blood pressure is 136/71 with a pulse oximetry of 92% on room air. HEENT: Normocephalic, atraumatic. Pupils are reactive to light and accommodation. CVS: S1 and S2, irregular. ABDOMEN: Nontender and nondistended. EXTREMITIES: No clubbing. No cyanosis. No edema. MEDICATIONS: Have been reviewed. The patient is on insulin, metoprolol, clopidogrel, lisinopril, and Lasix. LABORATORY VALUES: Today's labs have not been done. Patient is stable though. ASSESSMENT 1. Atrial fibrillation with rapid ventricular response. Patient is on adequate rate control. 2. Coronary artery disease with right coronary artery unsuccessful atherectomy. 3. Acute on chronic congestive heart failure. 4. Urinary tract infection. 5. Hypothyroidism. 6. Hypertension. PLAN: To continue on aspirin and Plavix. Metoprolol has been increased to 150 mg twice a day for rate control. We will continue monitoring the patient. Patient will need a staged atherectomy again. Patient can be discharged from medicine point of view if cardiology is okay. Further recommendation per clinical course, and we will continue to follow as an outpatient and to follow up with Dr. Knapp and Dr. Butterfield on discharge. Job#: [id number]
[2018-04-26 09:00] VITALS: BP 131/86
[2018-04-26] MEDS: DIGOXIN 0.125 MG TAB PO SCH (09:05)
[2018-04-26] MEDS: LISINOPRIL 20 MG TAB PO SCH (09:05)
[2018-04-26] MEDS: ASPIRIN 81 MG CHEW TAB PO SCH (09:05)
[2018-04-26] MEDS: PANTOPRAZOLE SOD 40 MG TABEC PO SCH (09:05)
[2018-04-26] MEDS: FAMOTIDINE 20 MG/2 ML VIAL IV SCH (09:05)
[2018-04-26] MEDS: FUROSEMIDE 40 MG TAB PO SCH (09:05)
[2018-04-26] MEDS: CLOPIDOGREL BISULFATE 75 MG TAB PO SCH (09:05)
[2018-04-26] MEDS: METOPROLOL SUCCINATE 50 MG TAB XL PO SCH ×2 (09:06→17:04)
[2018-04-26] MEDS: POTASSIUM CHLORIDE 20 MEQ TAB CR PO SCH (09:06)
[2018-04-26] MEDS: ACETAMINOPHEN 325 MG TAB PO PRN (09:16)
--- NOTE | 2018-04-26 10:55 | NUR ---
Visit made by the Spiritual Care Department Pastoral Visitor, Derek Seaman. PV provided pastoral presence, hospitality, and supportive listening. Pastoral Visitor informed pt/family of the scope of Electrical Equipment Technician Services and availability. PIETRO AMIN Wet Room Supervisor Spiritual Care Department O: [phone] Pager: [phone] ([phone] number calling from)
[2018-04-26 11:58] VITALS: BP 111/66
--- NOTE | 2018-04-26 16:00 | NUR ---
per (cardiology) patient may d/c home per cardiology standpoint and to continue cardiac home medications. MD did not leave RX for patient as he stated for her to resume cardiac home medications. Will communicate this to Ferdinand CESPEDES.
--- NOTE | 2018-04-26 16:32 | Progress Note ---
DATE: SUBJECTIVE: Patient was lightheaded taking a shower today. Denies any chest pain or shortness of breath. OBJECTIVE VITAL SIGNS: Temperature 97.7, heart rate 92, respirations 18, blood pressure is 111/66, oxygen saturation 96% on room air. GENERAL: Well-appearing, in no apparent stress. CARDIOVASCULAR: Irregular rate and rhythm. LUNGS: Clear to auscultation. ABDOMEN: Soft and nontender. EXTREMITIES: No edema. VASCULAR: Diminished pulses. CARDIOVASCULAR MEDICATIONS: Reviewed. LABORATORY DATA: Reviewed. TELEMETRY MONITORING: Revealed atrial fibrillation. IMPRESSION 1. Paroxysmal atrial fibrillation. 2. Coronary artery disease, status post stented atherectomy of the right coronary artery. 3. Systolic congestive heart failure. 4. Urinary tract infection. 5. Hypothyroidism. 6. Hypertension. RECOMMENDATIONS: Currently, the patient is asymptomatic from a cardiovascular standpoint. Her heart rates are well controlled and blood pressure is within normal limits. Continue current cardiovascular medications. Continue dual-antiplatelet therapy. Hold Eliquis for now until PCI is performed of the RCA. The patient may be discharged from a cardiovascular standpoint with outpatient followup with Dr. Butterfield on Saturday. Job#: [id number] REYNOLD
== END 2018-04-26 18:32 | disposition home or self-care (01) | DRG 250 ==
LOC: ER 16:31 → ERHOLD 20:55 → MED/SURG 22:50 → ICU 04-21 14:19 → MED/SURG2 04-25 13:29
PROVIDERS: ADMIT Internal Medicine; ATTEND Internal Medicine
PROC: 4A023N7 Measurement of Cardiac Sampling and Pressure, Left Heart, Percutaneous Approach (ICD-10-PCS; principal; 2018-04-21)
PROC: B2111ZZ Fluoroscopy of Multiple Coronary Arteries using Low Osmolar Contrast (ICD-10-PCS; 2018-04-21)
PROC: B2151ZZ Fluoroscopy of Left Heart using Low Osmolar Contrast (ICD-10-PCS; 2018-04-21)
PROC: 02703ZZ Dilation of Coronary Artery, One Artery, Percutaneous Approach (ICD-10-PCS; 2018-04-23)
PROC: 02C03ZZ Extirpation of Matter from Coronary Artery, One Artery, Percutaneous Approach (ICD-10-PCS; 2018-04-23)
DX: I48.0 Paroxysmal atrial fibrillation (principal); I50.23 Acute on chronic systolic (congestive) heart failure; N39.0 Urinary tract infection, site not specified; I11.0 Hypertensive heart disease with heart failure; E11.9 Type 2 diabetes mellitus without complications; E03.9 Hypothyroidism, unspecified; E78.5 Hyperlipidemia, unspecified; F41.9 Anxiety disorder, unspecified; M19.90 Unspecified osteoarthritis, unspecified site; Z82.49 Family history of ischemic heart disease and other diseases of the circulatory system; I25.10 Atherosclerotic heart disease of native coronary artery without angina pectoris; I42.9 Cardiomyopathy, unspecified
CPT/HCPCS: 36415; 71045; 80048; 80053; 80061; 82550; 82553; 82948; 83735; 83880; 84443; 84484; 85025; 85347; 85610; 85730; 87086; 92924; 93005; 93306; 93454; 96372; 99284; C1724; C1725; C1769; C1887; J0696; J1160; J1644; J1650; J1940; J2001; J2250; J2370; J2405; J7030; J7050; Q9967

== ENCOUNTER 2018-08-03 09:35 | Inpatient (IN) | payer MEDICARE, BC ==
[~2018-08-03] VITALS: Ht 157.5 cm; Wt 59.5 kg
[2018-08-03] MEDS ORDERED: METOPROLOL TARTRATE INJ 1 MG/ML VIAL IV NR (10:15)
[2018-08-03 10:24] LABS: BASOPHILS # (AUTO) 0.1 (0.0-0.1); BASOPHILS % 0.6 % (0.0-1.0); EOSINOPHILS # (AUTO) 0.1 (0.0-0.4); EOSINOPHILS % 1.1 % (0.0-6.0); HEMATOCRIT 43.7 % (34.2-44.1); HEMOGLOBIN 14.7 g/dL (12.0-16.0); LYMPHOCYTES # (AUTO) 1.8 (1.0-3.2); LYMPHOCYTES % 23.1 % (18.0-39.1); MEAN CORPUSCULAR HEMOGLOBIN 30.9 pg (28-32); MEAN CORPUSCULAR HGB CONC 33.6 g/dL (31-35); MEAN CORPUSCULAR VOLUME 91.8 fL (81-99); MONOCYTES # (AUTO) 0.6 (0.2-0.8); MONOCYTES % 7.2 % (4.4-11.3); NEUTROPHILS # (AUTO) 5.4 (2.1-6.9); NEUTROPHILS % 67.6 % (38.7-80.0); PLATELET COUNT 274 x10e3/uL (140-360); RED BLOOD COUNT 4.76 x10e6/uL (3.6-5.1); RED CELL DISTRIBUTION WIDTH 15.5 % (11.7-14.4)
[2018-08-03] MEDS ORDERED: SODIUM CHLORIDE 0.9% 500ML 500 ML ONE (10:25)
[2018-08-03] MEDS ORDERED: DILTIAZEM HCL VIAL 5 ML ONE (10:25)
[2018-08-03] MEDS ORDERED: SODIUM CHLORIDE 0.9% 500ML 500 ML IV ONE (10:30)
[2018-08-03] MEDS ORDERED: DILTIAZEM HCL 5 MG/ML 5 ML VIAL IV NR (10:30)
[2018-08-03 10:36] LABS: INR 1.24; PROTHROMBIN TIME 16.2 seconds (11.9-14.5)
[2018-08-03 10:37] LABS: PARTIAL THROMBOPLASTIN TIME 32.3 seconds (23.8-35.5)
[2018-08-03 10:42] LABS: ALANINE AMINOTRANSFERASE 33 IU/L (0-55); ALBUMIN 3.6 g/dL (3.5-5.0); ALBUMIN/GLOBULIN RATIO 0.9 (0.8-2.0); ALKALINE PHOSPHATASE 74 IU/L (40-150); ANION GAP 16.7 mmol/L (8-16); BLOOD UREA NITROGEN 22 mg/dL (7-26); BUN/CREATININE RATIO 26 (6-25); CALCIUM 9.8 mg/dL (8.4-10.2); CARBON DIOXIDE 29 mmol/L (22-29); CHLORIDE 98 mmol/L (98-107); CREATINE KINASE 43 IU/L (29-168); CREATININE, SERUM 0.85 mg/dL (0.57-1.11); EST GLOMERULAR FILTRATION RATE > 60 ML/MIN (60-); GLUCOSE 202 mg/dL (74-118); MAGNESIUM 1.2 MG/DL (1.3-2.1); SODIUM 141 mmol/L (136-145)
[2018-08-03] MEDS ORDERED: METOPROLOL TARTRATE 50 MG TAB PO NR (10:45)
[2018-08-03 10:51] LABS: POTASSIUM 2.7 mmol/L (3.5-5.1)
[2018-08-03] MEDS ORDERED: POTASSIUM CHLORIDE 10MEQ EA PO NR (11:00)
--- NOTE | 2018-08-03 11:24 | Diagnostic Imaging Report ---
A single frontal view of the chest. HISTORY: SOB AFIB COMPARISON: None available. DISCUSSION: Portable technique, limits sensitivity of the exam. Overlying artifacts. Tubes/Lines: None Lungs and pleura: Low lung volumes result in bibasilar vascular crowding, accentuation of the pulmonary interstitial markings, central pulmonary vasculature, and the cardiac silhouette. Allowing for these limitations, the findings are as follows: Prominence of the peribronchial interstitial markings, increased since the comparison. No evidence of a consolidative pneumonia or pulmonary alveolar edema. No definite pleural effusion or pneumothorax is identified. Heart and mediastinum: The cardiomediastinal silhouette and central pulmonary vasculature appears stable. Bones and soft tissues: Appear unremarkable, given this limited exam. IMPRESSION: 1. Findings which could be seen in the setting of a nonspecific bronchitis. 2. Otherwise, stable findings compared to April 2018, including central pulmonary vascular congestion. Signed by: Dr. Khoi Herron D.O., M.M.M. on 08/03/2018 11:21 AM
[2018-08-03 11:35] LABS: CLARITY,URINE HAZY (CLEAR); COLOR,URINE YELLOW (YELLOW); KETONES,URINE NEGATIVE (NEGATIVE); LEUKOCYTE ESTERASE ,URINE NEGATIVE (NEGATIVE); NITRITE,URINE NEGATIVE (NEGATIVE); PROTEIN,URINE DIPSTICK NEGATIVE (NEGATIVE); URINE UROBILINOGEN 0.2 mg/dL (0.2 - 1)
[2018-08-03 11:36] LABS: BACTERIA,URINE FEW /HPF; BILIRUBIN,URINE NEGATIVE (NEGATIVE); EPITHELIAL CELLS,URINE FEW /LPF; RBC,URINE 0-5 /HPF (0-5); WBC,URINE (MAN) 0-5 /HPF (0-5)
[2018-08-03] MEDS ORDERED: MAGNESIUM SULFATE 2GM/50ML 50 ML IV ONE (12:15)
[2018-08-03] MEDS ORDERED: POTASSIUM CHLORIDE 10MEQ/100ML 100 ML IV SCH (12:30)
[2018-08-03] MEDS ORDERED: ONDANSETRON HCL INJ 2MG/ML 2ML 2 MG/ML VIAL IV PRN (12:45)
[2018-08-03] MEDS ORDERED: AMIODARONE HCL 150 MG/100 ML BAG IV NR (13:00)
[2018-08-03] MEDS ORDERED: CLOPIDOGREL BISULFATE 75 MG TAB PO NR (13:14)
[2018-08-03] MEDS ORDERED: AMIODARONE HCL 900 MG in DEXTROSE 5% 500ML 500 ML IV ONE (13:15)
[2018-08-03] MEDS ORDERED: AMIODARONE 900MG 500 ML IV ONE (13:32)
[2018-08-03] MEDS: ASPIRIN 81 MG CHEW TAB PO SCH (13:40)
--- NOTE | 2018-08-03 13:58 | NUR ---
REPORT CALLED TO GWENDOLYN RN ROOM [id number].
[2018-08-03 14:30] VITALS: BP 124/84
[2018-08-03 14:33] VITALS: BP 124/84
[2018-08-03] MEDS ORDERED: POTASSIUM CHLORIDE 20 MEQ TAB CR PO NR (16:00)
[2018-08-03 16:20] VITALS: BP 157/98
[2018-08-03] MEDS: APIXABAN 5 MG TABLET PO SCH (16:20)
[2018-08-03 19:00] VITALS: BP 145/95
[2018-08-03] MEDS ORDERED: METOPROLOL TARTRATE 25 MG TAB PO SCH (19:00)
--- NOTE | 2018-08-03 19:20 | NUR ---
Received patient from day nurse, patient is stable.
[2018-08-03 19:40] VITALS: BP 145/95
[2018-08-03] MEDS: METHOCARBAMOL 750 MG TAB PO SCH (20:40)
[2018-08-03] MEDS: TEMAZEPAM 15 MG CAP PO SCH (20:40)
[2018-08-03] MEDS: ATORVASTATIN 40 MG TAB PO SCH (20:41)
[2018-08-03] MEDS: HYDROCODONE/APAP 10MG-325MG TAB PO PRN (20:41)
[2018-08-03] MEDS: NAPROXEN 250 MG TAB PO SCH (20:41)
--- NOTE | 2018-08-03 20:43 | Consultation ---
DATE OF CONSULTATION: 08/03/2018 Cardiology Consultation INDICATION: Atrial fibrillation. HISTORY OF PRESENT ILLNESS: Ms. Phillips is a 78-year-old female with history of coronary artery disease status post recent high-risk right coronary artery intervention with atherectomy as well as stent placement. She has atrial fibrillation, which is permanent. She has insertable loop recorder. She has been transmitting multiple days of rapid atrial fibrillation. Despite contact from our office, she did not make an office visit. She now presents with palpitations. She has been noncompliant with her medications. PAST MEDICAL HISTORY: As listed above. SOCIAL HISTORY: The patient does not smoke or drink. She is accompanied by her large family. REVIEW OF SYSTEMS: Negative except as dictated in the history of present illness. PHYSICAL EXAMINATION: VITAL SIGNS: Afebrile, heart rate 129, blood pressure is 143/104. CARDIOVASCULAR: Irregular regular rhythm. Systolic murmur. LUNGS: Decreased breath sounds bilaterally. Occasional fine crackles. ABDOMEN: Not distended. Bowel sounds are adequate. EXTREMITIES: No edema. LABORATORY DATA: Potassium is 2.7, lactic acid 220.5, creatinine 0.85. BNP is 1759. IMAGING: Chest x-ray shows cardiomegaly. ASSESSMENT: 1. Rapid atrial fibrillation due to medical noncompliance. 2. [id number]-[id number] systolic heart failure. 3. Coronary artery disease. RECOMMENDATIONS: Inpatient telemetry monitoring for above-mentioned conditions. Intravenous amiodarone will be started with transition to oral for better rate control. Beta jamee continued. She request triple anticoagulant therapy with aspirin, clopidogrel and Eliquis due to recent stent placement as well as atrial fibrillation. Overall condition is guarded. I thank Dr. Knapp for this consultation. Don Garcia MD KSDarcie/MODL /[id number]
[2018-08-03] MEDS ORDERED: METOPROLOL SUCCINATE 50 MG TAB XL PO SCH (21:00)
[2018-08-03] MEDS: NISOLDIPINE 25.5 MG PO SCH (21:00)
[2018-08-03] MEDS ORDERED: NAPROXEN 500 MG PO SCH (21:00)
[2018-08-03 22:14] LABS: CREATINE KINASE MB 1.3 ng/mL (0-5.0)
[2018-08-03 23:39] VITALS: BP 142/92
[2018-08-04] VITALS (10 sets, daily range): BP systolic 132–170; BP diastolic 76–117
[2018-08-04 05:29] LABS: BASOPHILS % 0.6 % (0.0-1.0); EOSINOPHILS # (AUTO) 0.1 (0.0-0.4); EOSINOPHILS % 0.9 % (0.0-6.0); HEMATOCRIT 43.3 % (34.2-44.1); LYMPHOCYTES # (AUTO) 1.7 (1.0-3.2); MEAN CORPUSCULAR HEMOGLOBIN 30.6 pg (28-32); MEAN CORPUSCULAR HGB CONC 32.3 g/dL (31-35); MEAN CORPUSCULAR VOLUME 94.5 fL (81-99); MONOCYTES # (AUTO) 0.5 (0.2-0.8); MONOCYTES % 7.6 % (4.4-11.3); NEUTROPHILS # (AUTO) 4.4 (2.1-6.9); NEUTROPHILS % 65.6 % (38.7-80.0); PLATELET COUNT 259 x10e3/uL (140-360); RED BLOOD COUNT 4.58 x10e6/uL (3.6-5.1); RED CELL DISTRIBUTION WIDTH 15.7 % (11.7-14.4)
[2018-08-04 06:07] LABS: CREATINE KINASE 47 IU/L (29-168)
[2018-08-04] MEDS: LEVOTHYROXINE SODIUM 50 MCG TAB PO SCH (06:17)
[2018-08-04 06:26] LABS: ALBUMIN 3.6 g/dL (3.5-5.0); ALBUMIN/GLOBULIN RATIO 1.1 (0.8-2.0); CALCIUM 9.7 mg/dL (8.4-10.2); CHOL/HDL RATIO 4.1 (3.0-3.6); CREATININE, SERUM 1.01 mg/dL (0.57-1.11)
--- NOTE | 2018-08-04 07:02 | NUR ---
patient endorsed to next shift for continuity of care.
[2018-08-04] MEDS ORDERED: ASPIRIN 81 MG ENTERIC COATED PO SCH (09:00)
[2018-08-04] MEDS ORDERED: CLOPIDOGREL BISULFATE 75 MG TAB PO SCH (09:00)
[2018-08-04] MEDS: CLOPIDOGREL BISULFATE 75 MG TAB PO SCH (09:00)
[2018-08-04] MEDS: [UNRECOGNIZED DRUG - OTHER] PO SCH (09:00)
[2018-08-04] MEDS ORDERED: METOPROLOL SUCCINATE 50 MG TAB XL PO SCH (09:00)
[2018-08-04] MEDS: ASPIRIN 81 MG CHEW TAB PO SCH (09:23)
[2018-08-04] MEDS: PANTOPRAZOLE SOD 40 MG TABEC PO SCH (09:24)
[2018-08-04] MEDS: MULTIVITAMINS/MINERALS TAB PO SCH (09:24)
[2018-08-04] MEDS: OMEGA 3 POLYUNSAT FATTY ACIDS 1000 MG SOFTGEL PO SCH (09:24)
[2018-08-04] MEDS: OCUVITE PRESERVISION TABLET PO SCH (09:24)
[2018-08-04] MEDS: APIXABAN 5 MG TABLET PO SCH ×2 (09:29→17:28)
[2018-08-04] MEDS: LISINOPRIL 20 MG TAB PO SCH (09:37)
[2018-08-04] MEDS: HYDROCHLOROTHIAZIDE 25 MG TAB PO SCH (09:37)
--- NOTE | 2018-08-04 10:40 | NUR ---
Placed call to Dr. Yuko Gutierrez to reprot patient elevated blood pressure 170/110.
--- NOTE | 2018-08-04 12:10 | NUR ---
Dr.Benjamin Ty in to see patient, made aware of blood pressure changes in heart rate, received orders to give one time dose of digoxin, 0.25 IVP stat, stop amiodarone drip and administer amiodarone 200mg Po bid give first dose now, stop metoprolol succinate 100 mg daily dose, and 50 mg dose HS, and start metoprolol succinate 100mg PO bid.
[2018-08-04] MEDS ORDERED: DIGOXIN INJ 0.25 MG/ML 2 ML AMP IV ONE (12:15)
[2018-08-04] MEDS ORDERED: AMIODARONE HCL 200 MG TAB PO SCH (12:30)
[2018-08-04 13:09] LABS: CREATINE KINASE 122 IU/L (29-168)
[2018-08-04] MEDS ORDERED: ALPRAZOLAM 0.25 MG TAB PO PRN (13:15)
--- NOTE | 2018-08-04 14:34 | NUR ---
CM TO BEDSIDE TO DISCUSS PLAN OF CARE WITH PT/FAMILY. CM ROLE AND CARE TRANSITIONS DISCUSSED. ANTICIPATED DC PLAN DISCUSSED ALONG WITH DURATION OF CARE. CM DISCUSSED PATIENT'S RIGHT TO MAKE DECISIONS IN CARE. CM WORK HOURS GIVEN PT LIVES ALONE IN A HOUSE IN [place] ADMIT/TRANSFER: FROM [facility]/ER VISITS SINCE LAST ADMIT: 0 POA/EMERGENCY CONTACT: KATHYA ADEEL DTR [phone] CURRENT/PREVIOUS HOME HEALTH: NONE CURRENTLY BUT FAMILY REQUESTING HOME HEALTH FOR PT; LIST OF HOME HEALTH COMPANIES GIVEN TO SON AND DTR FAMILY ALSO REQUESTING PROVIDER SERVICES; LIST OF PAID PROVIDERS AND NUMBER FOR [facility] PROVID[facility] (STATE FUNDED) GIVEN TO PT'S SON AND DTR NOTE ON FRONT OF CHART ASKING DR STEPHENS FOR ORDER FOR HOME HEALTH CARE CURRENT PREVIOUS DME: PT REQUESTING A WALKER; HAS A GLUCOMETER; ALSO REQUESTING A WHEELCHAIR PAD FOR HER RECLINIER NOTE ON CHART ASKING FOR WALKER AND WHEELCHAIR PAD ORDERS EXPLAINED TO PT AND FAMILY THAT [facility] MAY OR MAY NOT PAY FOR THE WHEELCHAIR PAD DEPENDING ON PHYSICIAN DOCUMENTATION THEY UNDERSTAND GAVE PT MY CARD AND PUT MY NAME AND PHONE NUMBER ON WHITE BOARD OTHER SERVICES: NONE EMPLOYMENT STATUS: RETIRED AWAIT ORDERS FROM DR STEPHENS TO COMPLETE DC PLAN
[2018-08-04] MEDS: HYDROCODONE/APAP 10MG-325MG TAB PO PRN (15:35)
--- NOTE | 2018-08-04 16:14 | NUR ---
Nutrition Screen Note RD Recommendation for Physician: -Consider cardiac, 1800 ADA diet per MD. Plan of Care: RD following, monitoring for tolerance and adequacy. Education provided. Nutrition reason for involvement: Diagnosis- CHF Primary Diagnose(s): A-fib with RVR PMH: Hypertension Diabetes UTI's A-Fib Hypothyroidism CHF Anxiety Hyperlipedemia Osteoarthritis Ht: 62 in Wt:132 lb BMI: 24 kg/m2 IBW:[address] Assessment: (08/04) 78 YOF admitted for Afib with PMH listed above. Pt reports a good appetite here in the hospital but she does not like the hospital food. Pt stated her appetite was poor for about one week prior and that her weight fluctuates d/t her fluid. Educated pt and pts on heart healthy diet as well as DM diet and provided them with educational materials. They verbalized understanding. They had no other questions or concerns. Chart reviewed. Labs and meds reviewed. Will continue to monitor. Current Diet: Cardiac diet Malnutrition Evaluation (08/04) The patient does not meet criteria for a specified degree of malnutrition at this time. Will re-evaluate at follow-up as appropriate. Diet Education Needs Assessment: Diet education indicated, pt accepted education. Learner(s): pt and Barriers: none Cultural/Language Modifications: none Readiness: acceptance Method: discussion and handout Topics: DM and CHF nutrition therapy Understanding/Compliance: verbalized understanding, anticipate fair compliance Nutrition Care Level: low Signed: Kellee Smalls, RD, LD
[2018-08-04] MEDS: METOPROLOL SUCCINATE 50 MG TAB XL PO SCH (17:38)
[2018-08-04] MEDS: AMIODARONE HCL 200 MG TAB PO SCH (18:30)
[2018-08-04] MEDS: NISOLDIPINE 25.5 MG PO SCH (21:00)
[2018-08-04] MEDS: NAPROXEN 250 MG TAB PO SCH (21:20)
[2018-08-04] MEDS: ATORVASTATIN 40 MG TAB PO SCH (21:20)
[2018-08-04] MEDS: METHOCARBAMOL 750 MG TAB PO SCH (21:20)
[2018-08-04] MEDS: TEMAZEPAM 15 MG CAP PO SCH (21:20)
--- NOTE | 2018-08-04 21:49 | Progress Note ---
DATE: Cardiology Progress Note SUBJECTIVE: The patient feels short of breath. Denies chest pain. Reports palpitations. OBJECTIVE: VITAL SIGNS: Temperature is 97.5, heart rate is 105, respirations are 20, blood pressure is 155/92, and oxygen saturation % on 1 liter nasal cannula. GENERAL: She is well appearing, well built, in no apparent distress. CARDIOVASCULAR: Irregularly irregular, tachycardic. LUNGS: Diminished breath sounds at the bases. ABDOMEN: Soft, nontender, and nondistended. EXTREMITIES: Trace edema. CARDIOVASCULAR MEDICATIONS: Reviewed. LABORATORY DATA: Reviewed. Telemetry monitoring revealed atrial fibrillation with rapid ventricular response. IMPRESSION: 1. Atrial fibrillation with rapid ventricular response. 2. Shortness of breath. 3. Acute on chronic systolic congestive heart failure. 4. Coronary artery disease, status post percutaneous coronary intervention. RECOMMENDATIONS: Increase metoprolol succinate 100 mg b.i.d. We will transition to oral amiodarone from IV. Give one dose of digoxin for better rate control. PRN metoprolol IV. Continue triple therapy with aspirin, clopidogrel, and Eliquis. Continue to monitor closely on telemetry monitoring. 2D echo has been ordered and we will review once this has been resulted. DO NORMA Sanchez/FARSHADL /[id number]
[2018-08-05] VITALS (8 sets, daily range): BP systolic 112–175; BP diastolic 64–92
[2018-08-05] MEDS: LEVOTHYROXINE SODIUM 50 MCG TAB PO SCH (06:26)
[2018-08-05] MEDS: OCUVITE PRESERVISION TABLET PO SCH (08:15)
[2018-08-05] MEDS: MULTIVITAMINS/MINERALS TAB PO SCH (08:15)
[2018-08-05] MEDS: CLOPIDOGREL BISULFATE 75 MG TAB PO SCH (08:15)
[2018-08-05] MEDS: OMEGA 3 POLYUNSAT FATTY ACIDS 1000 MG SOFTGEL PO SCH (08:15)
[2018-08-05] MEDS: [UNRECOGNIZED DRUG - OTHER] PO SCH (08:15)
[2018-08-05] MEDS: PANTOPRAZOLE SOD 40 MG TABEC PO SCH (08:16)
[2018-08-05] MEDS: APIXABAN 5 MG TABLET PO SCH ×2 (08:16→17:24)
[2018-08-05] MEDS: ASPIRIN 81 MG CHEW TAB PO SCH (08:16)
[2018-08-05] MEDS: AMIODARONE HCL 200 MG TAB PO SCH ×2 (08:17→17:25)
[2018-08-05] MEDS: HYDROCHLOROTHIAZIDE 25 MG TAB PO SCH (08:25)
[2018-08-05] MEDS: LISINOPRIL 20 MG TAB PO SCH (08:26)
[2018-08-05] MEDS: METOPROLOL SUCCINATE 50 MG TAB XL PO SCH ×2 (08:26→17:41)
[2018-08-05] MEDS ORDERED: ONDANSETRON HCL 4 MG ORAL DISINTEGRATING TAB PO PRN (11:45)
[2018-08-05] MEDS ORDERED: DIGOXIN INJ 0.25 MG/ML 2 ML AMP IV NR ×2 (14:30→17:30)
--- NOTE | 2018-08-05 17:16 | Progress Note ---
DATE: 08/05/2018 Cardiology Progress Note CHIEF COMPLAINT: Ms. Phillips feels better. Her shortness of breath is improved. She remains tachycardic 80s at rest, 100 to 120 beats per minute when she moves. PHYSICAL EXAMINATION: HEART: Irregularly regular rhythm. Systolic murmur, S3 gallop. LUNGS: Fine crackles bilaterally in both lung bases. ABDOMEN: Soft, mildly distended. 1+ edema. TELEMETRY: Shows atrial fibrillation. LABORATORY DATA: Labs from today are pending. Cardiac enzymes remain negative. TSH is normal. MEDICATIONS: Reviewed. Echocardiogram shows ejection fraction of less than 20%. ASSESSMENT: 1. Acute systolic heart failure. 2. Atrial fibrillation, rapid ventricular response. RECOMMENDATIONS: Continued beta jamee, ANNE inhibitor, diuretic, amiodarone, Eliquis, aspirin, as well as atorvastatin. Spironolactone will be added. Clopidogrel will be discontinued. Assessment for AICD as an outpatient. The patient is on full dose Eliquis, which serves with DVT prophylaxis. Overall prognosis is guarded. We will need better rate control prior to discharge. We will add digoxin orally. MD RAYMOND Rodriguez/ILDA /[id number]
[2018-08-05] MEDS: SPIRONOLACTONE 25 MG TAB PO SCH (17:25)
[2018-08-05] MEDS ORDERED: METOPROLOL TARTRATE INJ 1 MG/ML VIAL IV PRN (17:30)
[2018-08-05] MEDS: NISOLDIPINE 25.5 MG PO SCH (21:00)
[2018-08-05] MEDS: TEMAZEPAM 15 MG CAP PO SCH (21:42)
[2018-08-05] MEDS: ATORVASTATIN 40 MG TAB PO SCH (21:42)
[2018-08-05] MEDS: NAPROXEN 250 MG TAB PO SCH (21:42)
[2018-08-05] MEDS: METHOCARBAMOL 750 MG TAB PO SCH (21:42)
[2018-08-06] VITALS (12 sets, daily range): BP systolic 98–185; BP diastolic 73–100
[2018-08-06] MEDS: HYDROCODONE/APAP 10MG-325MG TAB PO PRN (04:44)
--- NOTE | 2018-08-06 04:52 | NUR ---
dr Knapp give permission to give Lisinopril that is scheduled at 9 am to give now since pt bp is 180/83 at this time.
[2018-08-06] MEDS: LISINOPRIL 20 MG TAB PO SCH (04:53)
[2018-08-06] MEDS: LEVOTHYROXINE SODIUM 50 MCG TAB PO SCH (05:22)
--- NOTE | 2018-08-06 07:22 | NUR ---
pt resting in bed, alert and oriented, family at bedside. no c/o pain or s/s distress. will continue to monitor
[2018-08-06] MEDS: [UNRECOGNIZED DRUG - OTHER] PO SCH (09:00)
[2018-08-06] MEDS: SPIRONOLACTONE 25 MG TAB PO SCH ×2 (10:12→17:20)
[2018-08-06] MEDS: APIXABAN 5 MG TABLET PO SCH ×2 (10:12→17:20)
[2018-08-06] MEDS: AMIODARONE HCL 200 MG TAB PO SCH ×2 (10:12→17:20)
[2018-08-06] MEDS: HYDROCHLOROTHIAZIDE 25 MG TAB PO SCH (10:12)
[2018-08-06] MEDS: ASPIRIN 81 MG CHEW TAB PO SCH (10:12)
[2018-08-06] MEDS: DIGOXIN 0.125 MG TAB PO SCH (10:13)
[2018-08-06] MEDS: OCUVITE PRESERVISION TABLET PO SCH (10:13)
[2018-08-06] MEDS: METOPROLOL SUCCINATE 50 MG TAB XL PO SCH ×2 (10:13→17:23)
[2018-08-06] MEDS: PANTOPRAZOLE SOD 40 MG TABEC PO SCH (10:13)
[2018-08-06] MEDS: MULTIVITAMINS/MINERALS TAB PO SCH (10:13)
[2018-08-06] MEDS: OMEGA 3 POLYUNSAT FATTY ACIDS 1000 MG SOFTGEL PO SCH (10:13)
[2018-08-06] MEDS ORDERED: LISINOPRIL 10 MG TAB PO ONE (12:00)
--- NOTE | 2018-08-06 12:02 | NUR ---
EDUCATED ABOUT IMM GOT SIGNATURE AND FILED IN CHART WITH COPY LEFT AT BEDSIDE WITH CARD FOR ANY FURTHER QUESTIONS.
--- NOTE | 2018-08-06 12:10 | Progress Note ---
DATE: Cardiology Progress Note SUBJECTIVE: The patient is feeling better. Denies any palpitations or chest pain. OBJECTIVE: VITAL SIGNS: She is afebrile, heart rate 78, respirations are 19, blood pressure is 170/80, and oxygen saturation 96% on room air. GENERAL: Well appearing, well built, in no apparent distress. CARDIOVASCULAR: She is irregularly irregular. Normal rate. No murmurs. LUNGS: Clear to auscultation. ABDOMEN: Soft, nontender, and nondistended. EXTREMITIES: No edema. CARDIOVASCULAR MEDICATIONS: Reviewed. LABORATORY DATA: Reviewed and none recent. Telemetry monitoring revealed atrial fibrillation with controlled ventricular response. IMPRESSION: 1. Atrial fibrillation. 2. Chronic systolic congestive heart failure. 3. Hypertension. 4. Coronary artery disease. RECOMMENDATIONS: The patient's heart rate is better controlled. Continue metoprolol, amiodarone, and digoxin for rate control. We will increase her lisinopril given she is hypertensive. Continue all other current optimal medical therapies for heart failure consisting of beta jamee, ANNE inhibitor, diuretic, and spironolactone. She is on Eliquis and aspirin for anticoagulation needs. Continue statin for hyperlipidemia. She can be assessed for implantable cardioverter-defibrillator as an outpatient. DO NORMA Sanchez/ILDA /[id number]
--- NOTE | 2018-08-06 12:27 | NUR ---
bp 98/73, contra to admin one time dose of lisinopril at this time.
--- NOTE | 2018-08-06 16:53 | NUR ---
dr cedeño aware of pt vitals and lisinopril held, ok to give now for current vs
--- NOTE | 2018-08-06 16:54 | NUR ---
per dr cedeño, pt expected to dc tomorrow and f/u outpatient for pacemaker
[2018-08-06] MEDS ORDERED: HYDRALAZINE HCL 20 MG/ML VIAL IV PRN (20:45)
--- NOTE | 2018-08-06 20:50 | NUR ---
Called Severo Rincon to notified about Patient's high BP. ordered IV hydralazine 10mg q2 PRN at this time.
[2018-08-06] MEDS: NISOLDIPINE 25.5 MG PO SCH (21:00)
[2018-08-06] MEDS: TEMAZEPAM 15 MG CAP PO SCH (21:21)
[2018-08-06] MEDS: NAPROXEN 250 MG TAB PO SCH (21:21)
[2018-08-06] MEDS: ATORVASTATIN 40 MG TAB PO SCH (21:21)
[2018-08-06] MEDS: METHOCARBAMOL 750 MG TAB PO SCH (21:21)
[2018-08-07] MEDS: HYDROCODONE/APAP 10MG-325MG TAB PO PRN ×2 (02:39→11:11)
[2018-08-07 04:41] VITALS: BP 156/71
[2018-08-07] MEDS: LEVOTHYROXINE SODIUM 50 MCG TAB PO SCH (05:50)
--- NOTE | 2018-08-07 06:05 | NUR ---
Dr.Schnell abdi in the patient room at this time.
--- NOTE | 2018-08-07 07:04 | NUR ---
Report given to AM nurse,walking round done.
[2018-08-07 08:16] VITALS: BP 160/70
[2018-08-07 08:31] LABS: BASOPHILS % 0.4 % (0.0-1.0); EOSINOPHILS # (AUTO) 0.3 (0.0-0.4); EOSINOPHILS % 5.3 % (0.0-6.0); HEMATOCRIT 46.4 % (34.2-44.1); HEMOGLOBIN 15.3 g/dL (12.0-16.0); LYMPHOCYTES # (AUTO) 1.4 (1.0-3.2); LYMPHOCYTES % 27.4 % (18.0-39.1); MEAN CORPUSCULAR HEMOGLOBIN 30.9 pg (28-32); MEAN CORPUSCULAR VOLUME 93.7 fL (81-99); MONOCYTES # (AUTO) 0.6 (0.2-0.8); MONOCYTES % 11.1 % (4.4-11.3); NEUTROPHILS # (AUTO) 2.9 (2.1-6.9); NEUTROPHILS % 55.6 % (38.7-80.0); PLATELET COUNT 272 x10e3/uL (140-360); RED BLOOD COUNT 4.95 x10e6/uL (3.6-5.1); RED CELL DISTRIBUTION WIDTH 15.5 % (11.7-14.4)
[2018-08-07 08:52] LABS: ALBUMIN 3.2 g/dL (3.5-5.0); ALBUMIN/GLOBULIN RATIO 0.9 (0.8-2.0); CALCIUM 9.9 mg/dL (8.4-10.2); CREATININE, SERUM 0.91 mg/dL (0.57-1.11)
[2018-08-07 09:00] VITALS: BP 160/70
[2018-08-07] MEDS ORDERED: LISINOPRIL 20 MG TAB PO SCH (09:00)
[2018-08-07] MEDS: ASPIRIN 81 MG CHEW TAB PO SCH (09:33)
[2018-08-07] MEDS: PANTOPRAZOLE SOD 40 MG TABEC PO SCH (09:33)
[2018-08-07] MEDS: SPIRONOLACTONE 25 MG TAB PO SCH ×2 (09:33→17:07)
[2018-08-07] MEDS: APIXABAN 5 MG TABLET PO SCH ×2 (09:33→17:07)
[2018-08-07] MEDS: OMEGA 3 POLYUNSAT FATTY ACIDS 1000 MG SOFTGEL PO SCH (09:34)
[2018-08-07] MEDS: OCUVITE PRESERVISION TABLET PO SCH (09:34)
[2018-08-07] MEDS: AMIODARONE HCL 200 MG TAB PO SCH ×2 (09:34→17:07)
[2018-08-07] MEDS: MULTIVITAMINS/MINERALS TAB PO SCH (09:34)
[2018-08-07] MEDS: HYDROCHLOROTHIAZIDE 25 MG TAB PO SCH (09:50)
[2018-08-07] MEDS: [UNRECOGNIZED DRUG - OTHER] PO SCH (09:52)
[2018-08-07] MEDS: METOPROLOL SUCCINATE 50 MG TAB XL PO SCH ×2 (09:52→17:25)
[2018-08-07] MEDS: DIGOXIN 0.125 MG TAB PO SCH (09:52)
[2018-08-07 12:00] VITALS: BP 130/78
[2018-08-07] MEDS ORDERED: DIAZEPAM 2 MG TAB PO PRN (13:15)
[2018-08-07 16:00] VITALS: BP 138/70
--- NOTE | 2018-08-07 16:39 | NUR ---
CM SPOKE WITH PT AND DTR SHINE SUMNER TODAY AT BEDSIDE PH: [phone] FAMILY HAS REACHED OUT TO [place] PROVIDER SERVICES TO INITIATE PROCESS FOR PROVIDERS CHOICE LETTER SIGNED FOR [facility]; SPOKE WITH CARL AND FAXED ORDERS TO [phone] [facility] FOR WHEELCHAIR CUSHION: PH: [phone] FAX: [phone]; SPOKE WITH TERA GAVE PT A COPY OF CHOICE LETTER WITH NAME AND PHONE NUMBERS OF ABOVE COMPANIES GAVE PT MY CARD FOR ANY QUESTIONS/CONCERNS AFTER DISCHARGE
[2018-08-07 17:50] VITALS: BP 140/98
--- NOTE | 2018-08-07 17:53 | NUR ---
Patient given discharge instructions, to follow up with Dr. Garcia for AICD placement as outpatient. Prescriptions given verbalized understanding. Home health set up by case management. IV access D/C prior to discharge. Escorted patient in wheel chair to front of hospital to meet ride.
--- NOTE | 2018-08-07 18:34 | Progress Note ---
DATE: Cardiology Progress Note SUBJECTIVE: The patient is feeling well. Denies any chest pain, shortness of breath. Mildly anxious. OBJECTIVE: VITAL SIGNS: Temperature is 99, heart rate 72, respirations 17, blood pressure is 156/71, ox saturation 97% on room air. GENERAL: Well appearing, well built, no apparent distress. CARDIOVASCULAR: She is irregularly irregular, normal rate. Systolic murmur at the left sternal border. LUNGS: Mildly diminished breath sounds at bases. ABDOMEN: Soft, nontender, nondistended. CARDIOVASCULAR MEDICATIONS: Reviewed. LABORATORY DATA: Creatinine 0.91. Telemetry monitoring revealed atrial fibrillation with controlled ventricular response. IMPRESSION: 1. Atrial fibrillation. 2. Chronic systolic congestive heart failure. 3. Hypertension. 4. Coronary artery disease. RECOMMENDATIONS: The patient is hemodynamically stable. Her heart rate is better controlled on current cardiovascular medications. Continue optimal medical therapy for heart failure. Continue Eliquis and aspirin. The patient may be assessed for implantable cardioverter-defibrillator as an outpatient. DO NORMA Sanchez/MODL /[id number]
== END 2018-08-07 17:53 | disposition home health service (06) | DRG 308 ==
LOC: ER 09:35 → ERHOLD 12:48 → IMCU 14:16
PROVIDERS: ADMIT Internal Medicine; ATTEND Internal Medicine
DX: I48.91 Unspecified atrial fibrillation (principal); I50.23 Acute on chronic systolic (congestive) heart failure; Z79.01 Long term (current) use of anticoagulants; E11.9 Type 2 diabetes mellitus without complications; E78.00 Pure hypercholesterolemia, unspecified; I11.0 Hypertensive heart disease with heart failure; I25.10 Atherosclerotic heart disease of native coronary artery without angina pectoris; Z91.19 Patient's noncompliance with other medical treatment and regimen; Z95.5 Presence of coronary angioplasty implant and graft; E87.6 Hypokalemia; E03.9 Hypothyroidism, unspecified; Z95.818 Presence of other cardiac implants and grafts
CPT/HCPCS: 36415; 71045; 80053; 80061; 81001; 82550; 82553; 83605; 83735; 83880; 84443; 84484; 85025; 85610; 85730; 87040; 87086; 93005; 93306; 99284; J0360; J1160; J2405; J3475; J3480; J7040; J7060

== ENCOUNTER 2018-08-25 08:45 | Emergency (ER) | payer MEDICARE, BC ==
[~2018-08-25] VITALS: Ht 157.5 cm; Wt 59.4 kg
--- OUTSIDE RECORDS SUMMARY | 2018-08-25 08:49 | XMS REPORT | Continuity of Care Document ---
Author Author [facility] Interface Address Unknown Phone Unavailable Problems Problem Status Onset Date Classification Date Reported Comments Source Atrial fibrillation Active Problem 08/07/2018 [facility] Atrial fibrillation with RVR Active Problem 08/07/2018 [facility] Dyspnea Active Problem 08/07/2018 [facility] Hypokalemia Active Problem 08/07/2018 [facility] Hypomagnesemia Active Problem 08/07/2018 [facility] Medications Medication Details Route Status Patient Instructions Ordering Provider Order Date Source Acetaminophen (Tylenol Arthritis) 650 Mg Tablet.sa, 650 Mg Oral Bedtime Active 08/03/2018 [facility] Metformin Hcl 500 Mg Tablet, 500 Mg Oral Twice A Day Active 04/23/2017 [facility] Metoprolol Succinate 50 Mg Tab.er.24h, 100 Mg Oral Bedtime Active 04/23/2017 [facility] Metoprolol Succinate 50 Mg Tab.er.24h, 50 Mg Oral Bedtime Active 04/23/2017 [facility] Esomeprazole Magnesium (Nexium) 20 Mg Capsule., Oral Daily Active 04/19/2017 [facility] Esomeprazole Magnesium (Nexium) 40 Mg Capsule., Active 04/19/2017 [facility] Folic Acid , 800 Mg Bedtime Active 04/19/2017 [facility] Gabapentin 300 Mg Capsule, 300 Mg Oral Bedtime Active 04/19/2017 [facility] Metoclopramide Hcl (Reglan) 10 Mg Tablet, 10 Mg Oral Three Times A Day Active 04/19/2017 [facility] Dexlansoprazole (Dexilant) 60 Mg Cap., 60 Mg Oral Daily Active 04/18/2017 [facility] Metformin Hcl 500 Mg Tablet, 500 Mg Oral Twice A Day Active 04/18/2017 [facility] Naproxen 250 Mg Tablet, 500 Mg Oral Bedtime Active 04/18/2017 [facility] Nisoldipine , 25.5 Mg Oral Bedtime Active 04/18/2017 [facility] Vit A,C & E/Lutein/Minerals (Ocuvite Tablet) 1 Each Tablet, 1 Tab Oral Daily Active 04/18/2017 [facility] Esomeprazole Magnesium (Nexium) 40 Mg Capsule., 40 Mg Oral Daily Active 08/11/2015 [facility] Naproxen 500 Mg Tablet., 500 Mg Oral Twice A Day Active 08/11/2015 [facility] Aspirin 81 Mg Tablet, 81 Mg Oral Daily Active 06/10/2014 [facility] Metoprolol Succinate 50 Mg Tab.sr.24h, 100 Mg Oral Every Morning Active 06/10/2014 [facility] Mirabegron (Myrbetriq) 25 Mg Tab.er.24h, 25 Mg Oral Daily Active 06/10/2014 [facility] Tramadol Hcl (Ultram 50MG*) 50 Mg Tab, 50 Mg Oral Every 8 Hours as needed Active 06/10/2014 [facility] Darifenacin Hydrobromide (Enablex) 15 Mg Tab.sr.24h, 15 Mg Oral Active 01/19/2013 [facility] Esomeprazole Magnesium (Nexium) 40 Mg Capsule., Mg Oral Daily Active 01/19/2013 [facility] Tramadol Hcl (Ultram) 50 Mg Tablet, 50 Mg Oral Active 01/19/2013 [facility] Omeprazole 40 Mg Capsule., 40 Mg Oral Active 11/06/2012 [facility] Aspirin 81 Mg Tab.chew Active [facility] Atorvastatin Calcium (Lipitor) 40 Mg Tablet Every Evening Active [facility] Esomeprazole Magnesium (Nexium) 40 Mg Capsule. Daily Active PROTONIX THERAPEUTIC SUBSTITUTE FOR NEXIUM PER [facility] Folic Acid 0.8 Mg Tablet Every Evening Active [facility] Levothyroxine Sodium (Levoxyl) 50 Mcg Tablet Every Morning Active [facility] Lisinopril/Hydrochlorothiazide (Lisinopril-Hctz 20-12.5 Mg Tab) 1 Each Tablet Twice A Day Active [facility] Methocarbamol 750 Mg Tablet Bedtime Active [facility] Metoprolol Succinate 50 Mg Tab.er.24h Bedtime Active [facility] Mirabegron (Myrbetriq) 25 Mg Tab.er.24h Daily Active [facility] Multivit With Calcium,Iron,Min (One-A-Day Women's) 1 Each Tablet Daily Active [facility] Naproxen Dr Bedtime Active [facility] Nisoldipine 25.5 Mg Tab.er.24h Bedtime Active [facility] [place]-3 Fatty Acids (Fish Oil) 300 Mg Capsule Daily Active [facility] Temazepam 15 Mg Capsule Bedtime Active [facility] True Biotic Daily Active [facility] Vit A,C & E/Lutein/Minerals (Ocuvite Tablet) 1 Each Tablet Daily Active [facility] Allergies, Adverse Reactions, Alerts Substance Category Reaction Severity Reaction type Status Date Reported Comments Source Codeine Mild Allergy to Substance Active 04/18/2018 [facility] Cetirizine Mild Allergy to Substance Active 04/18/2018 [facility] PLASTIC TAPE RASH Unknown Allergy to Substance Active 04/18/2018 [facility] Alprazolam Unknown Allergy to Substance Active 08/07/2018 [facility] Immunizations Immunization Date Given Site Status Last Updated Comments Source Results Order Name Results Value Reference Range Date Interpretation Comments Source Blood leukocytes automated count (number/volume) 5.14 4.8 - 10.8 08/07/2018 [facility] Blood erythrocytes automated count (number/volume) 4.95 3.6 - 5.1 08/07/2018 [facility] Blood hemoglobin measurement (moles/volume) 15.3 12.0 - 16.0 08/07/2018 [facility] Automated blood hematocrit (volume fraction) 46.4 34.2 - 44.1 08/07/2018 [facility] Automated erythrocyte mean corpuscular volume 93.7 81 - 99 08/07/2018 [facility] Automated erythrocyte mean corpuscular hemoglobin (mass per erythrocyte) 30.9 28 - 32 08/07/2018 [facility] Automated erythrocyte mean corpuscular hemoglobin concentration measurement (mass/volume) 33.0 31 - 35 08/07/2018 [facility] RDW BldCo-Rto 15.5 11.7 - 14.4 08/07/2018 [facility] Automated blood platelet count (count/volume) 272 140 - 360 08/07/2018 [facility] Automated blood segmented neutrophil count as percentage of total leukocytes 55.6 38.7 - 80.0 08/07/2018 [facility] Automated blood lymphocyte count as percentage ot total leukocytes 27.4 18.0 - 39.1 08/07/2018 [facility] Automated blood monocyte count as percentage of total leukocytes 11.1 4.4 - 11.3 08/07/2018 [facility] Automated blood eosinophil count as percentage of total leukocytes 5.3 0.0 - 6.0 08/07/2018 [facility] Automated blood basophil count as percentage of total leukocytes 0.4 0.0 - 1.0 08/07/2018 [facility] IM GRANULOCYTES % 0.2 0.0 - 1.0 08/07/2018 [facility] Automated blood neutrophil count 2.9 2.1 - 6.9 08/07/2018 [facility] Blood lymphocytes count (number/volume) 1.4 1.0 - 3.2 08/07/2018 [facility] Blood monocytes automated count (number/volume) 0.6 0.2 - 0.8 08/07/2018 [facility] Automated blood eosinophil count 0.3 0.0 - 0.4 08/07/2018 [facility] Automated blood basophil count (count/volume) 0.0 0.0 - 0.1 08/07/2018 [facility] Absolute Immature Granulocyte (auto 0.01 0 - 0.1 08/07/2018 [facility] Serum or plasma sodium measurement (moles/volume) 138 136 - 145 08/07/2018 [facility] Serum or plasma potassium measurement (moles/volume) 4.0 3.5 - 5.1 08/07/2018 [facility] Serum or plasma chloride measurement (moles/volume) 100 98 - 107 08/07/2018 [facility] Serum or plasma carbon dioxide, total measurement (moles/volume) 28 22 - 29 08/07/2018 [facility] Serum or plasma anion gap 14.0 8 - 16 08/07/2018 [facility] Serum or plasma urea nitrogen measurement (mass/volume) 18 7 - 26 08/07/2018 [facility] Serum or plasma creatinine measurement (mass/volume) 0.91 0.57 - 1.11 08/07/2018 [facility] Serum or plasma urea nitrogen/creatinine mass ratio 20 6 - 25 08/07/2018 [facility] Estimated glomerular filtration rate (GFR) determination 60 60 08/07/2018 [facility] Glucose measurement 120 74 - 118 08/07/2018 [facility] Serum or plasma calcium measurement (mass/volume) 9.9 8.4 - 10.2 08/07/2018 [facility] Serum or plasma magnesium measurement (mass/volume) 1.5 1.3 - 2.1 08/07/2018 [facility] Serum or plasma total bilirubin measurement (mass/volume) 1.0 0.2 - 1.2 08/07/2018 [facility] Aspartate Amino Transf (AST/SGOT) 19 5 - 34 08/07/2018 [facility] Serum or plasma alanine aminotransferase measurement (enzymatic activity/volume) 17 0 - 55 08/07/2018 [facility] Serum or plasma protein measurement (mass/volume) 6.9 6.5 - 8.1 08/07/2018 [facility] Serum or plasma albumin measurement (mass/volume) 3.2 3.5 - 5.0 08/07/2018 [facility] Plasma globulin measurement (mass/volume) 3.7 2.3 - 3.5 08/07/2018 [facility] Serum or plasma albumin/globulin mass ratio 0.9 0.8 - 2.0 08/07/2018 [facility] Serum or plasma alkaline phosphatase measurement (enzymatic activity/volume) 72 40 - 150 08/07/2018 [facility] Serum or plasma creatine kinase measurement (enzymatic activity/volume) 122 29 - 168 08/04/2018 [facility] Serum or plasma creatine kinase MB measurement (mass/volume) 1.30 0 - 5.0 08/04/2018 [facility] Troponin I measurement by highly sensitive enzyme immunoassay < 0.001 0 - 0.300 08/04/2018 [facility] Serum or plasma triglyceride measurement (mass/volume) 157 0 - 149 08/04/2018 [facility] Serum or plasma cholesterol measurement (mass/volume) 145 0 - 199 08/04/2018 [facility] Serum or plasma cholesterol in LDL measurement (mass/volume) 79 60 - 130 08/04/2018 [facility] Serum or plasma cholesterol in HDL measurement (mass/volume) 35 40 - 60 08/04/2018 [facility] Serum or plasma total cholesterol/cholesterol in HDL mass ratio 4.1 3.0 - 3.6 08/04/2018 [facility] Serum or plasma thyrotropin measurement by detection limit <=0.005 miu/l (units/volume) 2.158 0.350 - 4.940 08/04/2018 [facility] Lactic Acid Level 20.5 4.5 - 19.8 08/03/2018 [facility] Blood culture NO GROWTH AFTER 72 HOURS 08/03/2018 [facility] Urine color determination YELLOW YELLOW 08/03/2018 [facility] Urine clarity HAZY CLEAR 08/03/2018 [facility] Specific gravity of Urine by Test strip 1.005 1.010 - 1.025 08/03/2018 [facility] Urine pH measurement by automated test strip 7 5 - 7 08/03/2018 [facility] Urine leukocyte esterase detection by dipstick NEGATIVE NEGATIVE 08/03/2018 [facility] Urine nitrite detection NEGATIVE NEGATIVE 08/03/2018 [facility] Urine protein measurement by test strip (mass/volume) NEGATIVE NEGATIVE 08/03/2018 [facility] Urine glucose detection NEGATIVE NEGATIVE 08/03/2018 [facility] Urine ketones detection by automated test strip NEGATIVE NEGATIVE 08/03/2018 [facility] Urine urobilinogen measurement by test strip (mass/volume) 0.2 0.2 - 1 08/03/2018 [facility] Urine total bilirubin measurement (mass/volume) NEGATIVE NEGATIVE 08/03/2018 [facility] Urine erythrocytes detection NEGATIVE NEGATIVE 08/03/2018 [facility] Automated urine sediment leukocyte count by microscopy (number/high power field) 0-5 0 - 5 08/03/2018 [facility] Erythrocytes detection in urine sediment by light microscopy 0-5 0 - 5 08/03/2018 [facility] Bacteria detection in urine sediment by light microscopy FEW NONE 08/03/2018 [facility] Epithelial cells detection in urine sediment by light microscopy FEW NONE 08/03/2018 [facility] Prothrombin time (PT) in platelet poor plasma by coagulation assay 16.2 11.9 - 14.5 08/03/2018 [facility] INR in Platelet poor plasma by Coagulation assay 1.24 08/03/2018 [facility] Activated partial thromboplastin time (aPTT) in platelet poor plasma bycoagulation assay 32.3 23.8 - 35.5 08/03/2018 [facility] BNP Bld-nc 1759.4 0 - 100 08/03/2018 [facility] Capillary blood glucose measurement by glucometer (mass/volume) 117 70 - 120 04/26/2018 [facility] Activated clotting time at point of care 217 04/23/2018 [facility] Vital Signs Vital Sign Value Date Comments Source Encounters Location Location Details Encounter Type Encounter Number Reason For Visit Attending Provider ADM Date DC Date Status Source Discharged Inpatient [id number] LATRELL STEPHENS MD 04/18/2018 04/26/2018 [facility] Admitted Inpatient [id number] LATRELL STEPHENS MD 08/03/2018 [facility] Procedures Procedure Code Date Perfomer Comments Source DILATION OF CORONARY ARTERY, ONE ARTERY, PERC APPROACH [id number] 04/23/2018 [facility] EXTIRPATION OF MATTER FROM 1 COR ART, PERC APPROACH [id number] 04/23/2018 [facility] MEASURE OF CARDIAC SAMPL & PRESSURE, L HEART, PERC APPROACH [id number] 04/21/2018 [facility] FLUOROSCOPY OF MULT COR ART USING L OSM CONTRAST [id number] 04/21/2018 [facility] FLUOROSCOPY OF LEFT HEART USING LOW OSMOLAR CONTRAST [id number] 04/21/2018 [facility]
--- OUTSIDE RECORDS SUMMARY | 2018-08-25 08:49 | XMS REPORT ---
Author Author [facility] Address Unknown Phone Unavailable Care Team Providers Care [employer] Name Role Phone Caro MONREAL Unavailable Unavailable LATRELL STEPHENS Unavailable Unavailable JOSE ROUSSEAU Unavailable Unavailable Problems This patient has no known problems. Allergies, Adverse Reactions, Alerts This patient has no known allergies or adverse reactions. Medications This patient has no known medications. Encounters Start Date/Time End Date/Time Encounter Type Admission Type Attending Clinicians Care Facility Care Department Encounter ID 2018-08-20 12:44:00 2018-08-20 08:53:00 Inpatient E [facility] [id number] 2018-08-18 05:15:00 2018-08-18 05:15:00 Outpatient [facility] [id number] Results Test Description Test Time Test Comments Text Results Atomic Results Result Comments CHEST SINGLE (PORTABLE) 2018-08-03 11:18:00 [facility] [address] [address] Patient Name: MARCELLA PORTER MR #: [id number] : 1940 Age/Sex: 78/F Req #: [id number] Adm Physician: Ordered by: KOBY MONREAL MD Report #: [id number] Location: ER Room/Bed: Procedure: [id number] DX/CHEST SINGLE (PORTABLE) Exam Date: Exam Time: REPORT STATUS: Signed A single frontal view of the chest. HISTORY: SOB AFIB COMPARISON: None available. DISCUSSION: Portable technique, limits sensitivity of the exam. Overlying artifacts. Tubes/Lines: None Lungs and pleura: Low lung volumes result in bibasilar vascular crowding, accentuation of the pulmonary interstitial markings, central pulmonary vasculature, and the cardiac silhouette. Allowing for these limitations, the findings are as follows: Prominence of the peribronchial interstitial markings, increased since the comparison. No evidence of a consolidative pneumonia or pulmonary alveolar edema. No definite pleural effusion or pneumothorax is identified. Heart and mediastinum: The cardiomediastinal silhouette and central pulmonary vasculature appears stable. Bones and soft tissues: Appear unremarkable, given this limited exam. IMPRESSION: 1. Findings which could be seen in the setting of a nonspecific bronchitis. 2. Otherwise, stable findings compared to April 2018, including central pulmonary vascular congestion. Signed by: Dr. Khoi Herron D.O., M.M.M. on 08/03/2018 11:21 AM Dictated By: KHOI HERRON DO 1121 Transcribed By: NAE on 08/03/18 1121 COPY TO: KOBY MONREAL MD CHEST SINGLE (PORTABLE) 2018-04-18 19:50:[address] [address] Patient Name: MARCELLA PORTER MR #: [id number] : 1940 Age/Sex: 77/F Req #: [id number] Adm Physician: Ordered by: BHAVANA MONTILLA [employer] Report #: [id number] Location: ER Room/Bed: Procedure: [id number] DX/CHEST SINGLE (PORTABLE) Exam Date: 04/18/18 Exam Time: 1900 REPORT STATUS: Signed Examination: Single AP view of the chest. COMPAR VERENA: Chest 2 views 04/15/2017 INDICATION: Shortness of breath, atrial fibrillation IMPRESSION: 1. Lines and Tubes: None 2. Lungs are well-inflated. No consolidation or effusion. 3. Cardiomediastinal silhouette is normal. Mild central pulmonary venous congestion. 4. No acute bony abnormalities. Signed by: Dr. Jose Mejia M.D. on 04/18/2018 7:51 PM Dictated By: JOSE MEJIA MD 50 Transcribed By: NAE on 04/18/181950 COPY TO: BHAVANA MONTILLA [employer] SCR MAMM BILATERAL JUAN CAD DIGITAL 2018-02-06 08:06:27 - SCR MAMM BILATERAL JUAN CAD DIGITALBILATERAL DIGITAL SCREENING MAMMOGRAM 3D/2D WITH CAD: 02/05/2018CLINICAL: Asymptomatic. Digital breast tomosynthesis was performed in addition to routine CC and MLO views. Current mammographic images were evaluated by either a APIm[employer]s M-Vu or a Eligibleer CAD (computer aided detection system). Comparison is made to exams dated 01/02/2017 mammogram, 12/29 mammogram, and 12/28/2014 mammogram - [facility]. The tissue of both breasts is predominantly fatty. There are benign vascular calcifications in both breasts. No suspicious mass, architectural distortion, malignant type calcification, or lymph node abnormality detected. Breast architecture is stable compared to prior exams.IMPRESSION: BENIGNThere is no mammographic evidence of malignancy. Resume annual screening mammography in one year. Oumar Menchaca M.D. ss/penrad:02/06/2018 08:06:27 [employer]: Ragini BOO, [facility] sent: BIRADS 1-2 Normal Mammogram BI-RADS: [address] ABDOMEN/PELVIS W [address] [place] [address] Patient Name: MARCELLA PORTER MR #: [id number] : 1940 Age/Sex: 76/F Req #: [id number] Adm Physician: Ordered by: LATRELL STEPHENS MD Report #: [id number] Location: [facility] Room/Bed: Procedure: [id number] CT/CT ABDOMEN/PELVIS W Exam Date: 04/30/17 Exam [...] at 13:39 Dictated By: TARYN DAY MD 9938 Transcribed By: ASHLEY on 04/30/17 3097 COPY TO: LATRELL STEPHENS MD CHEST 2 VIEWS [address] [place] [address] Patient Name: MARCELLA PORTER MR #: [id number] : 1940 Age/Sex: 76/F Req #: [id number] [facility] Physician: Ordered by: JOSE ROUSSEAU MD Report #: [id number] Location: OR Room/Bed: Procedure: [id number] DX/CHEST 2 VIEWS Exam Date: 04/15/17 Exam [...] on 04/15/2017 at 12:30 Dictated By: LEVI HAUSER MD 1230 Transcribed By: ASHLEY on 04/15/17 1230 COPY TO: JOSE ROUSSEAU MD
[2018-08-25 09:52] LABS: BASOPHILS # (AUTO) 0.1 (0.0-0.1); BASOPHILS % 0.6 % (0.0-1.0); EOSINOPHILS # (AUTO) 0.2 (0.0-0.4); EOSINOPHILS % 2.2 % (0.0-6.0); HEMATOCRIT 43.6 % (34.2-44.1); HEMOGLOBIN 13.5 g/dL (12.0-16.0); LYMPHOCYTES # (AUTO) 2.4 (1.0-3.2); LYMPHOCYTES % 22.7 % (18.0-39.1); MONOCYTES # (AUTO) 0.9 (0.2-0.8); MONOCYTES % 8.6 % (4.4-11.3); NEUTROPHILS # (AUTO) 6.8 (2.1-6.9); NEUTROPHILS % 65.3 % (38.7-80.0); PLATELET COUNT 162 x10e3/uL (140-360); RED BLOOD COUNT 4.36 x10e6/uL (3.6-5.1); RED CELL DISTRIBUTION WIDTH 15.3 % (11.7-14.4)
[2018-08-25 09:59] LABS: INR 1.23; PROTHROMBIN TIME 16.1 seconds (11.9-14.5)
[2018-08-25 10:00] LABS: PARTIAL THROMBOPLASTIN TIME 29.5 seconds (23.8-35.5)
[2018-08-25 10:09] LABS: ANION GAP 21.7 mmol/L (8-16); CALCIUM 8.5 mg/dL (8.4-10.2); CREATININE, SERUM 0.91 mg/dL (0.57-1.11); POTASSIUM 3.7 mmol/L (3.5-5.1)
[2018-08-25 10:16] LABS: CREATINE KINASE MB 1.1 ng/mL (0-5.0)
--- NOTE | 2018-08-25 10:29 | Diagnostic Imaging Report ---
Exam: Head CT without contrast History: Possible stroke, right arm numbness Comparison studies: None available on the PACS at the time of comparison Technique: Axial images were obtained from the skull base to the vertex. Coronal and sagittal images reconstructed from the axial data. Dose modulation, iterative reconstruction, and/or weight based adjustment of the mA/kV was utilized to reduce the radiation dose to as low as reasonably achievable. Radiation dose: Total DLP: 921 mGy*cm. Estimated effective dose: DLP x 0.015 Intravenous contrast: None Findings: Scalp: No abnormalities. Bones: No fractures, blastic or lytic lesions. Brain sulci: Mildly prominent. Ventricles: Mild compensatory dilatation. No hydrocephalus. Extra-axial spaces: No masses, no fluid collection. Parenchyma: No mass, acute hemorrhage or acute cortical insult. Cortical-based dystrophic calcification in the right superior parietal lobule without surrounding edema or mass effect may be sequela of prior infection/inflammation or hemorrhage. Scattered ill-defined confluent hypodensities in the supratentorial white matter are nonspecific but are most compatible with chronic microvascular ischemic changes. Sellar/suprasellar region: No abnormalities. Craniocervical junction: Patent foramen magnum. No Chiari one malformation. Included paranasal sinuses: The left sphenoid and impression image left maxillary sinus are partially opacified and contain nonspecific secretions. Incidental findings: Lens replacements for previous cataract surgery. Mild chronic inflammatory changes in the left mastoids. Atherosclerotic calcifications in the carotid siphons and in the right intradural vertebral artery. IMPRESSION: 1. No acute intracranial abnormalities. 2. Nonspecific left maxillary and sphenoid sinus inflammatory changes. Chronic findings: 1. Mild generalized volume loss. 2. Moderate microvascular ischemic changes. 3. Chronic right parietal dystrophic calcific dictation. Signed by: Dr. Oleksandr Velazco M.D. on 08/25/2018 10:26 AM
[2018-08-25] MEDS ORDERED: DIGOXIN125 MCG PO (10:30)
[2018-08-25] MEDS ORDERED: LISINOPRIL10 MG PO (10:30)
[2018-08-25] MEDS ORDERED: TRAZODONE HCL50 MG PO (10:30)
[2018-08-25] MEDS ORDERED: AMIODARONE HCL200 MG PO (10:30)
[2018-08-25] MEDS ORDERED: PANTOPRAZOLE SO40 MG PO (10:30)
[2018-08-25] MEDS ORDERED: SPIRONOLACTONE25 MG PO (10:30)
[2018-08-25] MEDS ORDERED: apixaban PO (10:30)
[2018-08-25] MEDS ORDERED: ULTRAM50 MG PO (10:30)
[2018-08-25] MEDS ORDERED: MINOCYCLINE HCL50 MG PO (10:30)
[2018-08-25] MEDS ORDERED: GABAPENTIN300 MG PO (10:30)
[2018-08-25] MEDS ORDERED: PLAVIX75 MG PO (10:30)
[2018-08-25] MEDS ORDERED: BUMETANIDE1 MG PO (10:30)
[2018-08-25] MEDS ORDERED: TRAMADOL HCL 50 MG TAB PO ONE (10:45)
[2018-08-25] MEDS ORDERED: METHOCARBAMOL 100MG/1ML 10ML VIAL IV ONE (11:15)
[2018-08-25] MEDS ORDERED: SODIUM CHLORIDE 0.9% 100 ML ONE (11:18)
== END 2018-08-25 12:23 | disposition home or self-care (01) ==
LOC: ER 08:45
DX: S50.01XA Contusion of right elbow, initial encounter (principal); M79.631 Pain in right forearm; M25.531 Pain in right wrist; M79.641 Pain in right hand; R25.2 Cramp and spasm; Z88.5 Allergy status to narcotic agent; Z88.8 Allergy status to other drugs, medicaments and biological substances; Z91.048 Other nonmedicinal substance allergy status
CPT/HCPCS: 36415; 70450; 80048; 82550; 82553; 84484; 85025; 85610; 85730; 99283; J2800; J7050

== ENCOUNTER 2019-06-23 16:41 | Emergency (ER) | payer MEDICARE, BC ==
[~2019-06-23] VITALS: Ht 157.5 cm; Wt 59.4 kg
[~2019-06-23 16:41] MED LIST changes: +AMIODARONE HCL200 MG PO; +BUMETANIDE1 MG PO; +DIGOXIN125 MCG PO; +LISINOPRIL10 MG PO; +MINOCYCLINE HCL50 MG PO; +PANTOPRAZOLE SO40 MG PO; +PLAVIX75 MG PO; +SPIRONOLACTONE25 MG PO; +TRAZODONE HCL50 MG PO; +ULTRAM50 MG PO; +apixaban PO
[2019-06-23 17:30] LABS: BASOPHILS % 0.4 % (0.0-1.0); EOSINOPHILS % 0.4 % (0.0-6.0); HEMATOCRIT 40.4 % (34.2-44.1); HEMOGLOBIN 13.7 g/dL (12.0-16.0); LYMPHOCYTES # (AUTO) 1.4 (1.0-3.2); LYMPHOCYTES % 16.3 % (18.0-39.1); MEAN CORPUSCULAR HEMOGLOBIN 32.5 pg (28-32); MEAN CORPUSCULAR HGB CONC 33.9 g/dL (31-35); MEAN CORPUSCULAR VOLUME 95.7 fL (81-99); MONOCYTES # (AUTO) 0.6 (0.2-0.8); MONOCYTES % 6.8 % (4.4-11.3); NEUTROPHILS # (AUTO) 6.1 (2.1-6.9); NEUTROPHILS % 73.6 % (38.7-80.0); PLATELET COUNT 325 x10e3/uL (140-360); RED BLOOD COUNT 4.22 x10e6/uL (3.6-5.1); RED CELL DISTRIBUTION WIDTH 14.5 % (11.7-14.4)
[2019-06-23 17:50] LABS: ALBUMIN 3.3 g/dL (3.5-5.0); ALBUMIN/GLOBULIN RATIO 0.8 (0.8-2.0); ANION GAP 13.9 mmol/L (8-16); CALCIUM 9.4 mg/dL (8.4-10.2); CREATININE, SERUM 1.62 mg/dL (0.57-1.11); POTASSIUM 3.9 mmol/L (3.5-5.1)
[2019-06-23 17:56] LABS: BILIRUBIN,URINE NEGATIVE (NEGATIVE); CLARITY,URINE SL CLOUDY (CLEAR); COLOR,URINE YELLOW (YELLOW); KETONES,URINE NEGATIVE (NEGATIVE); LEUKOCYTE ESTERASE ,URINE NEGATIVE (NEGATIVE); NITRITE,URINE NEGATIVE (NEGATIVE); PROTEIN,URINE DIPSTICK NEGATIVE (NEGATIVE); URINE UROBILINOGEN 0.2 mg/dL (0.2 - 1)
[2019-06-23 17:57] LABS: CREATINE KINASE MB 1.9 ng/mL (0-5.0)
[2019-06-23 18:11] LABS: BACTERIA,URINE MODERATE /HPF; EPITHELIAL CELLS,URINE MODERATE /LPF
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
[2019-06-23 18:48] LABS: INR 1.01; PROTHROMBIN TIME 13.9 seconds (11.9-14.5)
[2019-06-23 18:49] LABS: PARTIAL THROMBOPLASTIN TIME 24.7 seconds (23.8-35.5)
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
== END 2019-06-23 20:30 | disposition home or self-care (01) ==
LOC: ER 16:41
DX: S00.83XA Contusion of other part of head, initial encounter (principal); S16.1XXA Strain of muscle, fascia and tendon at neck level, initial encounter; S20.219A Contusion of unspecified front wall of thorax, initial encounter; S30.1XXA Contusion of abdominal wall, initial encounter; V43.52XA Car driver injured in collision with other type car in traffic accident, initial encounter; Y92.488 Other paved roadways as the place of occurrence of the external cause; I10 Essential (primary) hypertension; E11.9 Type 2 diabetes mellitus without complications; E78.5 Hyperlipidemia, unspecified; Z95.810 Presence of automatic (implantable) cardiac defibrillator
CPT/HCPCS: 36415; 70450; 71250; 72125; 74176; 80053; 81001; 82550; 82553; 83880; 84484; 85025; 85610; 85730; 87086; 93005; 99284

== ENCOUNTER 2019-08-24 16:44 | Inpatient (IN) | payer MEDICARE, BC, OTHER ==
[~2019-08-24] VITALS: Ht 157.5 cm; Wt 79.9 kg
[2019-08-24] MEDS ORDERED: SODIUM CHLORIDE 0.9% 1000ML 1,000 ML IV STA ×4 (16:52→22:08)
[2019-08-24] MEDS ORDERED: PIPER-TAZ 3.375 GM 50 ML IV ONE (16:52)
[2019-08-24] MEDS ORDERED: VANCOMYCIN 1GM/NS 250 ML 250 ML IV ONE (16:52)
--- OUTSIDE RECORDS SUMMARY | 2019-08-24 16:54 | XMS REPORT | Continuity of Care Document ---
Author Author [employer] Organization [employer] Address Unknown Phone Unavailable Care Team Providers Care Director Of Vocational Guidance Name Role Phone [employer] Unavailable Un available Problems Problem Status Onset Date Classification Date Reported Comments Source SEVERE LEG PAIN Active 06/30/2019 [facility] [place] SYNCOPAL EPISODE Active 08/20/2018 [facility] SYNCOPE, ELEVATED TROPONIN Act jeet 08/20/2018 [facility] BI-V ICD IMPLANT / AV NODE ABALTION Active 08/12/2018 [facility] Atherosclerotic heart disease of [place] coronary artery without angina pectoris 05/07/2018 11/20/2018 [facility] LT HEART CATH / POSS PCI /C IMPELLA Active 04/29/2018 [facility] Chronic systolic (congestive) heart failure 11/20/2018 [facility] Ischemic cardiomyopathy 11/20/2018 [facility] Unspecified atrial fibrillation 11/20/2018 [facility] Coronary atherosclerosis due to calcifie d coronary lesion 11/20/2018 [facility] Atherosclerosis of aorta 11/20/2018 [facility] Dysphagia, unspecified 11/20/2018 [facility] Hypertensive heart disease with heart failure 11/20/2018 [facility] Congenital hypothyroidism without goiter 11/20/2018 [facility] Type 2 diabetes mellitus without complications 11/20/2018 [facility] Paroxysmal atrial fibrillation 11/20/2018 [facility] Mixed hyperlipidemia 11/20/2018 [facility] Personal history of nicotine dependence 11/20/2018 [facility] Atrial fibrillation (disorder) Active Problem 07/2019 [facility] [place] Congestive heart failure (disorder) Active Problem 07/2019 [facility] [place] Diabetes mellitus (disorder) A ctive Problem 07/2019 [facility] [place] Dyspnea on exertion (finding) Active Problem 07/2019 [facility] [place] Gastroesophageal reflux disease (disorder) Active Problem 08/03/2019 [facility] [place] Hypertensive disorder, systemic arterial (disorder) Active Problem 08/03/2019 [facility] [place] Hypothyroidism (disorder) Acti ve Problem 07/2019 [facility] Peripheral venous insufficiency (disorder) Active Problem 08/03/2019 [facility] CARDIAC CATHETERIZATION CAUSE ABN REACT/ Active [facility] SYNCOPE AND COLLAPSE Active [facility] ABNORMAL LEVELS OF OTHER SERUM ENZYMES Active [facility] Medications Medication Details Route Status Patient Instructions Ordering Provider Order Date Source bumetanide 1 mg oral tablet 0. 5 mg = 0.5 tab, PO, BID, # 60 tab, 0 Refill(s), Pharmacy: [place] [id number] Active 08/24/2018 [facility] metoprolol 50 mg oral tablet, extended release 50 mg = 1 tab, PO, Daily, # 30 tab, 0 Refill(s), Pharmacy: [place] [id number] Active 08/24/2018 [facility] apixaban 2.5 mg oral tablet 2. 5 mg = 1 tab, PO, Q12H, # 60 tab, 0 Refill(s), Pharmacy: [place] [id number] Active 08/24/2018 [facility] Clonidine Notes: (Same As: Cat apres) No Longer Active 08/23/2018 [facility] Morphine 2 mg, 1 mL, Route: IV P, Drug form: SOLN, Q4H, Dosing Weight 59.091, kg, PRN Pain Score 4-6, Start date: 08/23/18 11:54:00 CDT, Duration: 30 day, Stop date: 09/22/18 11:53:00 CDT No Longer Active 08/23/2018 [facility] Potassium Chloride Notes: Infu se at a rate of 10 mEq/hr. (Same as: KCL) call [phone] after tubing med call [phone] after tubing med call [phone] after tubing med Inactive 08/23/2018 [facility] Eliquis Notes: Same as: Eliquis No Longer Active 08/23/2018 [facility] Spironolactone Notes: (Same As : Aldactone) No Longer Active 08/23/2018 [facility] Bumex Notes: (Same As: Bumex) No Longer Active 08/23/2018 [facility] Bumex Notes: (Same As: Bumex) Inactive 08/23/2018 [facility] Glucagon 1 mg, Route: IM, Drug form: PDR/INJ, PRN, Dosing Weight 59.091, kg, PRN Blood Glucose Results, Start date: 08/22/18 17:03:00 CDT, Duration: 30 day, Stop date: 09/21/18 17:02:00 CDT No Longer Active 08/22/2018 [facility] Dextrose 50% Syringe 25 gm, 50 mL, Route: IVP, Drug Form: INJ, Dosing Weight 59.091, kg, PRN, PRN Blood Glucose Results, Start date: 08/22/18 17:03:00 CDT, Duration: 30 day, Stop date: 09/21/18 17:02:00 CDT No Longer Active 08/22/2018 [facility] Insulin Lispro Notes: (Same as : Humalog) Roll in palms of hands gently; Do not shake vigorously. WASTE: F/P - Black; E - Municipal Trash Bin Stable for 28 days at room temperature. Expires in days from Date No Longer Active 08/22/2018 [facility] metoprolol extended release No kaci: (Same as: Toprol XL) May split tab, but do not crush. No Longer Active 08/22/2018 [facility] Hydralazine Notes: (Same as: A presoline) Push over 5 minutes No Longer Active 08/22/2018 [facility] Aspirin Notes: Take with food. No Longer Active 08/21/2018 [facility] Folic Acid 0.4 mg, 1 tab, Rout e: PO, Drug form: TAB, Daily, Dosing Weight 59.091, kg, Start date: 08/21/18 9:00:00 CDT, Duration: 30 day, Stop date: 09/19/18 9:00:00 CDT No Longer Active 08/21/2018 [facility] Digoxin Notes: Take on an Empt y Stomach (Same as: Lanoxin) Inactive 08/21/2018 [facility] clopidogrel Notes: (Same As: P lavix) No Longer Active 08/21/2018 [facility] Amiodarone Notes: (Same as: Co rdarone) Inactive 08/21/2018 [facility] pantoprazole Notes: Tablet ritika uld not be chewed or crushed. (Same as: Protonix) N o Longer Active 08/21/2018 [facility] Lisinopril Notes: (Same as: Pr inivil, Zestril) No Longer Active 08/21/2018 [facility] atorvastatin Notes: (Same as: Lipitor) No Longer Active 08/21/2018 [facility] Trazodone Notes: (Same As: Gume yrel) No Longer Active 08/21/2018 [facility] Minocycline Notes: (Same as:Fariba nocin) No milk/antacids/iron. No Longer Active 08/20/2018 [facility] Docusate Notes: (Same as: Cola ce) (Do Not Crush) No Longer Active 08/20/2018 [facility] metoprolol extended release No kaci: (Same as: Toprol XL) May split tab, but do not crush. No Longer Active 08/20/2018 [facility] gabapentin 300 MG Oral Capsule Notes: (Same as: Neurontin) No Longer Active 08/20/2018 [facility] ferrous sulfate Notes: Give wi th food. "Do Not Crush" No Longer Active 08/20/2018 [facility] Dextrose 50% Syringe 12.5 gm, 25 mL, Route: IVP, Drug Form: INJ, Dosing Weight 59.091, kg, PRN, PRN Blood Glucose Results, Start date: 08/20/18 15:36:00 CDT, Duration: 30 day, Stop date: 09/19/18 15:35:00 CDT No Longer Active 08/20/2018 [facility] Glucagon 1 mg, Route: IM, Drug form: PDR/INJ, PRN, Dosing Weight 59.091, kg, PRN Blood Glucose Results, Start date: 08/20/18 15:36:00 CDT, Duration: 30 day, Stop date: 09/19/18 15:35:00 CDT No Longer Active 08/20/2018 [facility] Ondansetron Notes: (Same as: Marcia alexander) MEDICATION WASTE Product Size: 4 mg Product Wasted: ___ mg No Longer Active 08/20/2018 [facility] Acetaminophen Notes: Do not ex ceed 4 gm/day. (Same as: Tylenol) No Longer Active 08/20/2018 [facility] Aspirin 324 mg, Route: CHEW, D rug form: CHEWTAB, ONCE, Dosing Weight 59.091, kg, Priority: STAT, Start date: 08/20/18 10:47:00 CDT, Stop date: 08/20/18 10:47:00 CDT Inactive 08/20/2018 [facility] Saline Flush 0.9% Notes: (Same as: BD Posiflush) No Longer Active 08/20/2018 [facility] Sodium Chloride 0.9% (Bolus) IV 500 mL, Infuse Over: 1 hr, Route: IV, ONCE, Priority: STAT, Dosing Weight 59.091 kg, Start date: 08/20/18 9:20:00 CDT, Stop date: 08/20/18 9:20:00 CDT Inactive 08/20/2018 [facility] tramadol hydrochloride 50 MG Oral Tablet 50 mg = 1 tab, PO, Q8H, PRN Pain Score 1-5, # 20 tab, 0 Refill(s), given to patient On Hold 08/19/2018 [facility] minocycline 100 mg oral capsule 100 mg = 1 cap, PO, Q12H, X 7 day, # 14 cap, 0 Refill(s), given to patient On Hold 08/19/2018 [facility] 24 HR mirabegron 50 MG Extended Release Tablet [Myrbetriq] 50 mg, 1 tab, Route: PO, Drug form: ERTA B, Daily, Dosing Weight 59.091, kg, Start date: 08/19/18 9:00:00 CDT, Duration: 30 day, Stop date: 09/17/18 9:00:00 CDT Inactive 08/19/2018 [facility] Lisinopril Notes: (Same as: Pr inivil, Zestril) Inactive 08/19/2018 [facility] Folic Acid 0.4 mg, 1 tab, Rout e: PO, Drug form: TAB, Daily, Dosing Weight 59.091, kg, Start date: 08/19/18 9:00:00 CDT, Duration: 30 day, Stop date: 09/17/18 9:00:00 CDT Inactive 08/19/2018 [facility] Digoxin Notes: Take on an Empt y Stomach (Same as: Lanoxin) Inactive 08/19/2018 [facility] clopidogrel Notes: (Same As: P lavix) Inactive 08/19/2018 [facility] vancomycin + Sodium Chloride 0.9% IV 250 mL 2001 mg: infuse over 2.5 hours For adult patients only: Round to nearest 250 mg per Medical Staff approval MEDICATION WASTE Product Size: 1000 mg Product Wasted: ___ mg No Longer Active 08/19/2018 [facility] metoprolol extended release No kaci: (Same as: Toprol XL) May split tab, but do not crush. No Longer Active 08/19/2018 [facility] atorvastatin Notes: (Same as: Lipitor) No Longer Active 08/19/2018 [facility] Spironolactone Notes: (Same As : Aldactone) No Longer Active 08/18/2018 [facility] pantoprazole Notes: Tablet ritika uld not be chewed or crushed. (Same as: Protonix) N o Longer Active 08/18/2018 [facility] RN please bring home med MYRBETRIQ to Pharmacy for label RN please bring home med MYRBETRIQ to Pharmacy for label, 1, Drug form: MISC, Route: MISC, TID, 08/18/18 15:00:00 CDT, Duration: 30 day, Stop date: 09/17/18 9:00:00 CDT No Longer Active 08/18/2018 [facility] gabapentin 300 MG Oral Capsule Notes: (Same as: Neurontin) No Longer Active 08/18/2018 [facility] ferrous sulfate Notes: Give wi th food. "Do Not Crush" No Longer Active 08/18/2018 [facility] *RN please update h/w/a in ad hoc* *RN please update h/w/a in ad hoc*, reminder, Drug form: MISC, Route: MISC, Q30Min, 08/18/18 14:30:00 CDT, Duration: 30 day, Stop date: 09/17/18 14:00:00 CDT Inactive 08/18/2018 [facility] Trazodone Hydrochloride 50 MG Oral Tablet Notes: (Same As: Desyrel) No Longer Active 08/18/2018 [facility] Morphine 2 mg, 1 mL, Route: IV P, Drug form: SOLN, Q4H, Dosing Weight 59.091, kg, PRN Pain Score 4-6, Start date: 08/18/18 10:12:00 CDT, Duration: 30 day, Stop date: 09/17/18 10:11:00 CDT No Longer Active 08/18/2018 [facility] Acetaminophen Notes: Do not ex ceed 4 gm/day. (Same as: Tylenol) No Longer Active 08/18/2018 [facility] Vancomycin 1,000 mg, Route: IV PB, ONCE, Dosing Weight 59.091, kg, Time Critical Medication, Start date: 08/18/18 10:12:00 CDT, Stop date: 08/18/18 10:12:00 CDT, ABX Indication: Surgical Prophylaxis Inactive 08/18/2018 [facility] metoprolol succinate 50 mg oral capsule, extended release 150 mg = 3 cap, PO, BID, 0 Refill(s) On Hold 08/18/2018 [facility] Digoxin 0.125 MG Oral Tablet [Digox] 125 microgram = 1 tab, PO, Daily, 0 Refill(s) On Hold 08/15/2018 [facility] spironolactone 25 mg oral tablet 25 mg = 1 tab, PO, BID, # 60 tab, 0 Refill(s) On Hold 08/15/2018 [facility] pantoprazole 40 mg oral enteric coated tablet 40 mg = 1 tab, PO, Daily, 0 Refill(s) On Hold 08/15/2018 [facility] Trazodone Hydrochloride 50 MG Oral Tablet 50 mg = 1 tab, PO, TID, 0 Refill(s) On Hold 08/15/2018 [facility] AMIODarone 200 mg oral tablet 200 mg = 1 tab, PO, Daily, 0 Refill(s) On Hold 08/15/2018 [facility] ferrous sulfate 325 MG Oral Tablet 325 mg = 1 tab, PO, TID, 0 Refill(s) On Hold 08/15/2018 [facility] lisinopril 40 mg oral tablet 4 0 mg = 1 tab, PO, Daily, 0 Refill(s) On Hold 08/15/2018 [facility] 24 HR mirabegron 50 MG Extended Release Tablet [Myrbetriq] 50 mg = 1 tab, PO, Daily, # 30 tab, 0 Refill(s) On Hold 08/15/2018 [facility] gabapentin 300 MG Oral Capsule 300 mg = 1 cap, PO, TID, 0 Refill(s) On Hold 08/15/2018 [facility] multivitamin Daily, 0 Refill(s) No Longer Active 08/15/2018 [facility] Ocuvite PO, Daily, 0 Refill(s) On Hold 08/15/2018 [facility] Folic Acid 0.4 MG Oral Tablet 0.4 mg = 1 tab, PO, Daily, # 100 tab, 0 Refill(s) On 08/15/2018 [facility] gabapentin Notes: (Same as: Ne urontin) Inactive 05/03/2018 [facility] clopidogrel 75 mg oral tablet 75 mg = 1 tab, PO, Daily, # 90 tab, 3 Refill(s) Active 05/03/2018 [facility] apixaban 5 mg oral tablet 5 mg = 1 tab, PO, Q12H, # 180 tab, 3 Refill(s) No Longer Active 05/03/2018 [facility] metoprolol 100 mg oral tablet, extended release 100 mg = 1 tab, PO, BID, # 180 tab, 3 Refill(s) No Longer Active 05/03/2018 [facility] gabapentin Notes: (Same as: Ne urontin) Inactive 05/03/2018 [facility] Protonix Notes: Tablet should not be chewed or crushed. (Same as: Protonix) Inactive 05/03/2018 [facility] Potassium Chloride Notes: Infu se at a rate of 10 mEq/hr. (Same as: KCL) Inactive 05/03/2018 [facility] Potassium Chloride Notes: (Sagar e as: K-Dur 20) "Do Not Crush" Give with food and full glass of water For patients unable to swallow tablet, dissolve in one half glass of water. Allow about 2 minutes for the tab lets to disintegrate. Stir before giving to prepare slurry and administer. Please exclude Patients with feeding tube less than 14 [place] (Dobhoff, J-tube etc) and pediatric and patients. Inactive 05/03/2018 [facility] Temazepam Notes: (Same As: Res toril) No Longer Active 05/03/2018 [facility] metoprolol extended release No kaci: (Same as: Toprol XL) May split tab, but do not crush. 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 (Same As: Ecotrin) No Longer Active 05/02/2018 [facility] Acetaminophen Notes: Do not ex ceed 4 gm/day. (Same as: Tylenol) No Longer Active 05/02/2018 [facility] Thyroxine Notes: Take 1 hour b efore or 2 hours after meal; Enteral feeds may interefere with the absorption of this medication.(Same as:Levothroid, Synthroid) No Longer Active 05/02/2018 [facility] Eliquis Notes: Same as: Eliquis No Longer Active 05/02/2018 [facility] atorvastatin Notes: (Same as: Lipitor) No Longer Active 05/02/2018 [facility] pantoprazole Notes: Tablet ritika uld not be chewed or crushed. (Same as: Protonix) N o Longer Active 05/01/2018 [facility] Nitroglycerin Notes: (Same as: Nitroquick, Nitrostat) "Do Not Crush" Sublingual tablet No Longer Active 05/01/2018 [facility] metoprolol 100 mg oral tablet, extended release 100 mg = 1 tab, PO, BID, 0 Refill(s) N o Longer Active 05/01/2018 [facility] Folic Acid 0.8 mg, PO, Daily, 0 Refill(s) No Longer Active 05/01/2018 [facility] Fish Oil 500 mg oral capsule 1 ,000 mg = 2 cap, PO, BID, 0 Refill(s) Active 04/30/2018 [facility] Esomeprazole 40 MG Enteric Coated Capsule 40 mg = 1 cap, PO, Daily, # 30 cap, 0 Refill(s) No Longer Active 04/30/2018 [facility] lisinopril 5 mg oral tablet 5 mg = 1 tab, PO, Daily, # 30 tab, 0 Refill(s) No Longer Active 04/30/2018 [facility] levothyroxine 50 mcg (0.05 mg) oral tablet 50 microgram = 1 tab, PO, Daily, # 30 tab, 0 Refill(s) No Longer Active 04/30/2018 [facility] clopidogrel 75 mg oral tablet 75 mg = 1 tab, PO, Daily, # 30 tab, 0 Refill(s) No Longe r Active 04/30/2018 [facility] atorvastatin 40 mg oral tablet 40 mg = 1 tab, PO, Bedtime, # 30 tab, 0 Refill(s) Active 04/30/2018 [facility] Aspirin 81 MG Enteric Coated Tablet 81 mg = 1 tab, PO, Daily, # 90 tab, 3 Refill(s) N o Longer Active 04/30/2018 [facility] Aspirin 81 MG Enteric Coated Tablet 81 mg = 1 tab, PO, Daily, # 90 tab, 3 Refill(s) N o Longer Active 04/30/2018 [facility] Allergies, Adverse Reactions, Alerts Substance Category Reaction Severity Reaction type Status Date Reported Comments Source Adhesive Assertion Drug allergy Active [facility] [place] Tape Assertion Drug allergy Active [facility] [place] HYDROcodone Assertion Drug allergy Active [facility] [place] Immunizations No Data Provided for This Section Results Order Name Results Value Reference Range Date Interpretation Comments Source CHEM PANEL Magnesium Lvl 1.6 1.8 - 2.4 08/23/2018 [facility] ELECTROLYTES AGAP 16.3 10.0 - 20.0 08/23/2018 [facility] ELECTROLYTES eGFR 83 08/23/2018 Result Comment: The eGFR is calculated using the CKD-EPI formula. In most young, healthy individuals the eGFR will be >90 mL/min/1.73m2. The eGFR declines with age. An eGFR of 60-89 may be normal in some populations, particularly the elderly, for whom the CKD-EPI formula has not been extensively validated. Use of the eGFR is not recommended in the following populations:

Individuals with unstable creatinine concentrations, including patients and those with serious co-morbid conditions.

Patients with extremes in muscle mass or diet.

The data above are obtained from the National Kidney Disease Education Program (NKDEP) which additionally recommends that when the eGFR is used in patients with extremes of body mass index for purposes of drug dosing, the eGFR should be multiplied by the estimated BMI. [facility] ELECTROLYTES Calcium Lvl 8.9 8.5 - 10.5 08/23/2018 [facility] ELECTROLYTES CO2 19 24 - 32 08/23/2018 [facility] ELECTROLYTES Chloride Lvl 111 95 - 109 08/23/2018 [facility] ELECTROLYTES Potassium Lvl 3.3 3.5 - 5.1 08/23/2018 [facility] ELECTROLYTES Creatinine Lvl 0.7 0 0.50 - 1.40 08/23/2018 [facility] ELECTROLYTES Sodium Lvl 143 135 - 145 08/23/2018 [facility] ELECTROLYTES Glucose Lvl 133 70 - 99 08/23/2018 [facility] ELECTROLYTES BUN 14 7 - 22 08/23/2018 [facility] HEMATOLOGY MCH 30.6 27.0 - 31.0 08/23/2018 [facility] HEMATOLOGY MCV 94.4 80.0 - 98.0 08/23/2018 [facility] HEMATOLOGY RDW 16.4 11.5 - 14.5 08/23/2018 [facility] MCHC 32.4 32.0 - 36.0 08/23/2018 [facility] HEMATOLOGY RBC 4.91 4.20 - 5.40 08/23/2018 [facility] HEMATOLOGY WBC 8.1 3.7 - 10.4 08/23/2018 [facility] HEMATOLOGY Hct 46.3 36.0 - 48.0 08/23/2018 [facility] HEMATOLOGY Hgb 15.0 12.0 - 16.0 08/23/2018 [facility] HEMATOLOGY Platelet 203 133 - 450 08/23/2018 [facility] MPV 7.9 7.4 - 10.4 08/23/2018 [facility] HEMATOLOGY Basophils # 0.1 0.0 - 0.2 08/23/2018 [facility] HEMATOLOGY Neutrophils # 5.6 1.5 - 8.1 08/23/2018 [facility] HEMATOLOGY Basophils 0.7 0.0 - 1.0 08/23/2018 [facility] HEMATOLOGY Lymphocytes # 1.5 1.0 - 5.5 08/23/2018 [facility] HEMATOLOGY Eosinophils # 0.2 0.0 - 0.5 08/23/2018 [facility] HEMATOLOGY Eosinophils 2.7 0.0 - 4.0 08/23/2018 [facility] Monocytes # 0.7 0.0 - 0.8 08/23/2018 [facility] Monocytes 8.0 2.0 - 12.0 08/23/2018 [facility] HEMATOLOGY Segs 69.6 45.0 - 75.0 08/23/2018 [facility] HEMATOLOGY Lymphocytes 19.0 20.0 - 40.0 08/23/2018 [facility] CARDIAC ENZYMES Troponin-I 0.39 0.00 - 0.40 08/21/2018 [facility] URINE AND STOOL UA Urobilinogen <=1.0 mg/dL 0.1 - 1.0 08/20/[address] [facility] URINE AND STOOL UA Bacteria Occasional /HPF None Seen /HPF 08/20/[address] [facility] [address] URINE AND STOOL UA RBC 3 0 - 2 08/20/2018 [facility] URINE AND STOOL UA Sq Epi Moderate /LPF Few /LPF 08/20/2018 [facility] URINE AND STOOL UA WBC 1 0 - 5 08/20/2018 [facility] URINE AND STOOL UA Mucus Few /LPF None Seen /LPF 08/20/2018 [facility] URINE AND STOOL UA Blood Negative (08/20/18 1:05 PM) Negative 08/20/2018 [facility] URINE AND STOOL UA Hyal Cast 5 0 - 2 08/20/2018 [facility] URINE AND STOOL UA Bili Negative *NA* (08/20/18 1:05 PM) Negative 08/20/2018 [facility] URINE AND STOOL UA Leuk Est Negative (08/20/18 1:05 PM) Negative 08/20/2018 [facility] URINE AND STOOL UA Nitrite Negative (08/20/18 1:05 PM) Negative 08/20/2018 [facility] URINE AND STOOL UA Ketones Trace mg/dL Negative mg/dL 08/20/2018 [facility] URINE AND STOOL UA pH 5.0 5.0 - 8.0 08/20/2018 [facility] URINE AND STOOL UA Spec Grav 1.023 <=1.030 08/20/2018 [facility] URINE AND STOOL UA Color Yellow *NA* (08/20/18 1:05 PM) Yellow 08/20/2018 [facility] URINE AND STOOL UA Turbidity Slight *ABN* (08/20/18 1:05 PM) Clear 08/20/2018 [facility] URINE AND STOOL UA Protein 30 mg/dL Negative mg/dL 08/20/2018 [facility] URINE AND STOOL UA Glucose Negative mg/dL Negative mg/dL 08/20/[address] [facility] CARDIAC ENZYMES BNP 290 <=100 pg/mL 08/20/2018 [facility] CARDIAC ENZYMES Troponin-I 0.64 0.00 - 0.40 08/20/2018 Result Comment: Critical Result(s) mathias d to Dr. Ernst at 08/20/2018 10:44 by AD. Read back OK. [facility] CHEM PANEL eGFR 63 08/20/2018 Result Comment: The eGFR is calculated using the CKD-EPI formula. In most young, healthy individuals the eGFR will be >90 mL/min/1.73m2. The eGFR declines with age. An eGFR of 60-89 may be normal in some populations, particularly the elderly, for whom the CKD-EPI formula has not been extensively validated. Use of the eGFR is not recommended in the following populations:

Individuals with unstable creatinine concentrations, including patients and those with serious co-morbid conditions.

Patients with extremes in muscle mass or diet.

The data above are obtained from the National Kidney Disease Education Program (NKDEP) which additionally recommends that when the eGFR is used in patients with extremes of body mass index for purposes of drug dosing, the eGFR should be multiplied by the estimated BMI. [facility] CHEM PANEL Albumin Lvl 3.1 3.5 - 5.0 08/20/2018 [facility] CHEM PANEL Total Protein 6.9 6.4 - 8.4 08/20/2018 [facility] CHEM PANEL ALT 29 0 - 65 08/20/2018 [facility] CHEM PANEL Potassium Lvl 4.2 3.5 - 5.1 08/20/2018 [facility] [facility] Bili Total 1.0 0.2 - 1.3 08/20/2018 [facility] CHEM PANEL AST 28 0 - 37 08/20/2018 [facility] CHEM PANEL Alk Phos 78 39 - 136 08/20/2018 [facility] CHEM PANEL Glucose Lvl 135 70 - 99 08/20/2018 [facility] CHEM PANEL CO2 20 24 - 32 08/20/2018 [facility] CHEM PANEL Calcium Lvl 8.6 8.5 - 10.5 08/20/2018 [facility] CHEM PANEL Chloride Lvl 108 95 - 109 08/20/2018 [facility] CHEM PANEL BUN 16 7 - 22 08/20/2018 [facility] CHEM PANEL Creatinine Lvl 0.88 0.50 - 1.40 08/20/2018 [facility] CHEM PANEL Sodium Lvl 139 135 - 145 08/20/2018 [facility] CHEM PANEL Globulin 3.8 2.7 - 4.2 08/20/2018 [facility] CHEM PANEL A/G Ratio 0.8 0.7 - 1.6 08/20/2018 [facility] CHEM PANEL AGAP 15.2 10.0 - 20.0 08/20/2018 [facility] CHEM PANEL B/C Ratio 18 6 - 25 08/20/2018 [facility] HEMATOLOGY INR 1.04 0.85 - 1.17 08/20/2018 [facility] HEMATOLOGY PT 13.4 12.0 - 14.7 08/20/2018 [facility] HEMATOLOGY MCH 30.8 27.0 - 31.0 08/20/2018 [facility] HEMATOLOGY Hct 43.5 36.0 - 48.0 08/20/2018 [facility] MCV 94.0 80.0 - 98.0 08/20/2018 [facility] RDW 16.1 11.5 - 14.5 08/20/2018 [facility] MCHC 32.8 32.0 - 36.0 08/20/2018 [facility] MPV 8.3 7.4 - 10.4 08/20/2018 [facility] Platelet 200 133 - 450 08/20/2018 [facility] WBC 8.3 3.7 - 10.4 08/20/2018 [facility] RBC 4.63 4.20 - 5.40 08/20/2018 [facility] Hgb 14.3 12.0 - 16.0 08/20/2018 [facility] PTT 28.2 22.9 - 35.8 08/20/2018 [facility] Neutrophils # 6.4 1.5 - 8.1 08/20/2018 [facility] Monocytes # 0.7 0.0 - 0.8 08/20/2018 [facility] Lymphocytes # 1.1 1.0 - 5.5 08/20/2018 [facility] Eosinophils # 0.1 0.0 - 0.5 08/20/2018 [facility] Basophils # 0.1 0.0 - 0.2 08/20/2018 [facility] Basophils 0.8 0.0 - 1.0 08/20/2018 [facility] Monocytes 8.0 2.0 - 12.0 08/20/2018 [facility] Eosinophils 1.6 0.0 - 4.0 08/20/2018 [facility] Lymphocytes 13.2 20.0 - 40.0 08/20/2018 [facility] Segs 76.4 45.0 - 75.0 08/20/2018 [facility] ELECTROLYTES AGAP 11.9 10.0 - 20.0 08/15/2018 [facility] ELECTROLYTES eGFR 64 08/15/2018 Result Comment: The eGFR is calculated using the CKD-EPI formula. In most young, healthy individuals the eGFR will be >90 mL/min/1.73m2. The eGFR declines with age. An eGFR of 60-89 may be normal in some populations, particularly the elderly, for whom the CKD-EPI formula has not been extensively validated. Use of the eGFR is not recommended in the following populations:

Individuals with unstable creatinine concentrations, including patients and those with serious co-morbid conditions.

Patients with extremes in muscle mass or diet.

The data above are obtained from the National Kidney Disease Education Program (NKDEP) which additionally recommends that when the eGFR is used in patients with extremes of body mass index for purposes of drug dosing, the eGFR should be multiplied by the estimated BMI. [facility] ELECTROLYTES Potassium Lvl 4.9 3.5 - 5.1 08/15/2018 [facility] ELECTROLYTES Chloride Lvl 109 95 - 109 08/15/2018 [facility] ELECTROLYTES CO2 24 24 - 32 08/15/2018 [facility] ELECTROLYTES Calcium Lvl 9.1 8.5 - 10.5 08/15/2018 [facility] ELECTROLYTES Sodium Lvl 140 135 - 145 08/15/2018 [facility] ELECTROLYTES Glucose Lvl 111 70 - 99 08/15/2018 [facility] ELECTROLYTES BUN 17 7 - 22 08/15/2018 [facility] ELECTROLYTES Creatinine Lvl 0.8 7 0.50 - 1.40 08/15/2018 [facility] HEMATOLOGY Basophils # 0.1 0.0 - 0.2 08/15/2018 [facility] HEMATOLOGY Basophils 0.9 0.0 - 1.0 08/15/2018 [facility] HEMATOLOGY Eosinophils 1.6 0.0 - 4.0 08/15/2018 [facility] HEMATOLOGY Neutrophils # 4.2 1.5 - 8.1 08/15/2018 [facility] Monocytes # 0.5 0.0 - 0.8 08/15/2018 [facility] Lymphocytes # 1.7 1.0 - 5.5 08/15/2018 [facility] Eosinophils # 0.1 0.0 - 0.5 08/15/2018 [facility] HEMATOLOGY Lymphocytes 26.4 20.0 - 40.0 08/15/2018 [facility] HEMATOLOGY Segs 63.9 45.0 - 75.0 08/15/2018 [facility] Monocytes 7.2 2.0 - 12.0 08/15/2018 [facility] HEMATOLOGY INR 1.52 0.85 - 1.17 08/15/2018 [facility] HEMATOLOGY PT 18.0 12.0 - 14.7 08/15/2018 [facility] PTT 29.8 22.9 - 35.8 08/15/2018 [facility] Platelet 284 133 - 450 08/15/2018 [facility] MCHC 32.3 32.0 - 36.0 08/15/2018 [facility] HEMATOLOGY MPV 7.9 7.4 - 10.4 08/15/2018 [facility] HEMATOLOGY RDW 16.1 11.5 - 14.5 08/15/2018 [facility] HEMATOLOGY MCH 30.6 27.0 - 31.0 08/15/2018 [facility] HEMATOLOGY WBC 6.6 3.7 - 10.4 08/15/2018 [facility] HEMATOLOGY RBC 5.02 4.20 - 5.40 08/15/2018 [facility] HEMATOLOGY Hgb 15.4 12.0 - 16.0 08/15/2018 [facility] HEMATOLOGY MCV 94.9 80.0 - 98.0 08/15/2018 [facility] HEMATOLOGY Hct 47.7 36.0 - 48.0 08/15/2018 [facility] ELECTROLYTES Potassium Lvl 3.6 3.5 - 5.1 05/03/2018 [facility] CHEM PANEL eGFR 85 05/03/2018 Result Comment: The eGFR is calculated using the CKD-EPI formula. In most young, healthy individuals the eGFR will be >90 mL/min/1.73m2. The eGFR declines with age. An eGFR of 60-89 may be normal in some populations, particularly the elderly, for whom the CKD-EPI formula has not been extensively validated. Use of the eGFR is not recommended in the following populations:

Individuals with unstable creatinine concentrations, including patients and those with serious co-morbid conditions.

Patients with extremes in muscle mass or diet.

The data above are obtained from the National Kidney Disease Education Program (NKDEP) which additionally recommends that when the eGFR is used in patients with extremes of body mass index for purposes of drug dosing, the eGFR should be multiplied by the estimated BMI. [facility] CHEM PANEL Potassium Lvl 2.9 3.5 - 5.1 05/03/2018 Result Comment: Critical Result(s) mey ernst at 05/03/2018 05:48 byjw. Read back OK. [facility] CHEM PANEL Sodium Lvl 143 135 - 145 05/03/2018 [facility] CHEM PANEL Creatinine Lvl 0.68 0.50 - 1.40 05/03/2018 [facility] CHEM PANEL Calcium Lvl 8.7 8.5 - 10.5 05/03/2018 [facility] CHEM PANEL AGAP 10.9 10.0 - 20.0 05/03/2018 [facility] CHEM PANEL BUN 15 7 - 22 05/03/2018 [facility] CHEM PANEL Glucose Lvl 121 70 - 99 05/03/2018 [facility] CHEM PANEL Chloride Lvl 110 95 - 109 05/03/2018 [facility] CHEM PANEL CO2 25 24 - 32 05/03/2018 [facility] MPV 7.6 7.4 - 10.4 05/03/2018 [facility] MCH 29.4 27.0 - 31.0 05/03/2018 [facility] MCHC 33.3 32.0 - 36.0 05/03/2018 [facility] HEMATOLOGY RDW 16.2 11.5 - 14.5 05/03/2018 [facility] Platelet 316 133 - 450 05/03/2018 [facility] WBC 7.2 3.7 - 10.4 05/03/2018 [facility] RBC 3.22 4.20 - 5.40 05/03/2018 [facility] MCV 88.3 80.0 - 98.0 05/03/2018 [facility] Hct 28.5 36.0 - 48.0 05/03/2018 [facility] Hgb 9.5 12.0 - 16.0 05/03/2018 [facility] PANEL eGFR 45 04/30/2018 Result Comment: The eGFR is calculated using the CKD-EPI formula. In most young, healthy individuals the eGFR will be >90 mL/min/1.73m2. The eGFR declines with age. An eGFR of 60-89 may be normal in some populations, particularly the elderly, for whom the CKD-EPI formula has not been extensively validated. Use of the eGFR is not recommended in the following populations:

Individuals with unstable creatinine concentrations, including patients and those with serious co-morbid conditions.

Patients with extremes in muscle mass or diet.

The data above are obtained from the National Kidney Disease Education Program (NKDEP) which additionally recommends that when the eGFR is used in patients with extremes of body mass index for purposes of drug dosing, the eGFR should be multiplied by the estimated BMI. [facility] CHEM PANEL Glucose Lvl 138 70 - 99 04/30/2018 [facility] CHEM PANEL AST 16 0 - 37 04/30/2018 [facility] CHEM PANEL Bili Total 0.3 0.2 - 1.3 04/30/2018 [facility] CHEM PANEL ALT 19 0 - 65 04/30/2018 [facility] CHEM PANEL Alk Phos 71 39 - 136 04/30/2018 [facility] CHEM PANEL Calcium Lvl 8.8 8.5 - 10.5 04/30/2018 [facility] CHEM PANEL CO2 24 24 - 32 04/30/2018 [facility] CHEM PANEL Potassium Lvl 3.5 3.5 - 5.1 04/30/2018 [facility] CHEM PANEL Creatinine Lvl 1.17 0.50 - 1.40 04/30/2018 [facility] CHEM PANEL BUN 47 7 - 22 04/30/2018 [facility] CHEM PANEL Total Protein 7.5 6.4 - 8.4 04/30/2018 [facility] CHEM PANEL Chloride Lvl 105 95 - 109 04/30/2018 [facility] CHEM PANEL Albumin Lvl 3.2 3.5 - 5.0 04/30/2018 [facility] CHEM PANEL Sodium Lvl 139 135 - 145 04/30/2018 [facility] CHEM PANEL B/C Ratio 40 6 - 25 04/30/2018 [facility] CHEM PANEL AGAP 13.5 10.0 - 20.0 04/30/2018 [facility] CHEM PANEL A/G Ratio 0.7 0.7 - 1.6 04/30/2018 [facility] CHEM PANEL Globulin 4.3 2.7 - 4.2 04/30/2018 [facility] HEMATOLOGY PTT 20.5 22.9 - 35.8 04/30/2018 [facility] HEMATOLOGY PT 12.8 12.0 - 14.7 04/30/2018 [facility] HEMATOLOGY INR 0.98 0.85 - 1.17 04/30/2018 [facility] HEMATOLOGY Hct 38.1 36.0 - 48.0 04/30/2018 [facility] HEMATOLOGY MCHC 33.2 32.0 - 36.0 04/30/2018 [facility] HEMATOLOGY RDW 16.6 11.5 - 14.5 04/30/2018 [facility] HEMATOLOGY Platelet 383 133 - 450 04/30/2018 [facility] HEMATOLOGY MPV 8.0 7.4 - 10.4 04/30/2018 [facility] HEMATOLOGY Hgb 12.7 12.0 - 16.0 04/30/2018 [facility] HEMATOLOGY WBC 8.9 3.7 - 10.4 04/30/2018 [facility] HEMATOLOGY RBC 4.29 4.20 - 5.40 04/30/2018 [facility] HEMATOLOGY MCH 29.5 27.0 - 31.0 04/30/2018 [facility] HEMATOLOGY MCV 88.8 80.0 - 98.0 04/30/2018 [facility] Segs 59.9 45.0 - 75.0 04/30/2018 [facility] Monocytes 7.9 2.0 - 12.0 04/30/2018 [facility] Lymphocytes 27.2 20.0 - 40.0 04/30/2018 [facility] Basophils 1.0 0.0 - 1.0 04/30/2018 [facility] HEMATOLOGY Neutrophils # 5.3 1.5 - 8.1 04/30/2018 [facility] HEMATOLOGY Eosinophils 4.0 0.0 - 4.0 04/30/2018 [facility] Basophils # 0.1 0.0 - 0.2 04/30/2018 [facility] Eosinophils # 0.4 0.0 - 0.5 04/30/2018 [facility] Lymphocytes # 2.4 1.0 - 5.5 04/30/2018 [facility] Monocytes # 0.7 0.0 - 0.8 04/30/2018 [facility] Pathology Reports No Data Provided for This Section Diagnostic Reports Report Value Date Source Chest 2 views DX Chest 2 views DX Female 78 years old Clinical Indication: Line Placement - Status post PPM/ICD Implantation; Comparison: 08/23/2018 Technique: PA and lateral chest radiographs were performed. (2 views) FINDINGS: LUNGS: Shallow inspiratory lung volumes are noted. There are no infiltrates or airspace opacities. Pulmonary vascular congestion present on previous examination has generally resolved. Some minimal effusion is suspected on the right. HEART AND MEDIASTINUM: The heart size is within normal limits and unchanged. Calcific atherosclerotic vascular disease is noted in the thoracic aorta. OSSEOUS STRUCTURES: Dextroscoliosis. Moderate lumbar spondylosis. ADDITIONAL FINDINGS: Multilead left subclavian transvenous pacemaker in the right heart. Electrocardiogram leads. Previous cholecystectomy. IMPRESSION: 1. Diminished pulmonary vascular congest ion when compared to previous exam. 2. Minimal residual atelectasis and poss ible effusion in the right base. 3. Pacemaker. SL: [id number] 08/24/2018 [facility] Chest 1 v for Placement DX Pat ient Name: FELIPE PORTER : 1940; Age: 78 years y/o Female MR: [id number] Study: Chest 1 v for Placement DX 08/23/2018 11:54 AM CDT Ordering Physician: Doug Baez MD Comparison: Chest radiograph 08/20/2018 Clinical Indication: Line Placement - Status post PPM/ICD Implantation Findings: Left chest wall defibrillator with intact leads overlying the right atrium, right and left ventricles. Low lung volumes without focal consolidation. No pleural effusion or pneumothorax. The cardiac silhouette is within normal limits of size. Atherosclerotic calcifications of the thoracic aorta. Degenerative changes of the spine with a compression deformity of the L1 vertebral body. Right upper quadrant surgical clips. IMPRESSION: Left chest wall pacemaker as detailed above. No pneumothorax. SL: WR2-M 08/23/2018 [facility] Chest 1view DX Portable chest: The left subclavian pacemaker leads are in satisfactory position. The cardiac silhouette and pulmonary vasculature are within normal limits. There is mild subsegmental atelectasis in the right lung base, unchanged compared to 08/19/2018. The lungs and pleural spaces are otherwise clear. There is no other significant change. IMPRESSION: No acute radiographic abnormalities of the chest. [id number] 08/20/2018 [facility] Brain wo contrast CT Patient N panda: FELIPE PORTER : 1940; Age: 78 years y/o Female MR: [id number] Study: Brain wo contrast CT 08/20/2018 9:20 CDT Ordering Physician: Romain Ernst DO Clinical Indication: - syncope; Comparison: None TECHNIQUE: CT images were obtained from the foramen magnum to the vertex without the use of intravenous contrast on a multidetector CT. Coronal and sagittal reconstructions were obtained. CT imaging performed at this location utilizes radiation dose optimization techniques which include one or more of the following: -Automated exposure control -Adjustment of the mA and/or kV accordin g to patient size -Use of iterative reconstruction techniq ue CT Radiation Dose DLP 982 mGy-cm FINDINGS: There is no evidence of acute intracranial hemorrhage, subacute territorial infarct, mass effect, midline shift, or extra-axial fluid collection. Please note that acute infarcts can be occult on CT. 11 mm calcification is seen in the right parietal cortex, likely dystrophic related to prior infection, trauma or hemorrhage. There is encephalomalacia in the surrounding cortex. There is mild generalized cerebral volume loss with associated ventricular prominence. There are mild nonspecific supratentorial white matter hypodensities likely representing chronic small vessel ischemic changes in this age. There are no chronic territorial infarcts. There are calcifications in the carotid siphons and intradural vertebral arteries. There is a fluid level in the left maxillary sinus to be correlated for acute sinusitis. The rest of the paranasal sinuses are clear. The soft tissues are unremarkable. Incidentally noted partially empty sella turcica. IMPRESSION: No evidence of acute process. Mild chronic small vessel ischemic changes in the supratentorial white matter. Small old lacunar insult in the right caudothalamic groove. Coarse calcification in the right parietal cortex may be related to prior hemorrhage, infarct or infection. Air-fluid level in the left maxillary sinus to be correlated for acute sinusitis. If there is further concern for intracranial pathology or acute stroke, further assessment with an MRI of the brain should be considered. SL: [id number] 08/20/2018 [facility] Chest 2 views DX Patient Name: FELIPE PORTER : 1940; Age: 78 years y/o Female MR: [id number] Study: Chest 2 views DX 08/19/2018 3:00 AM CDT Ordering Physician: Doug Baez MD Comparison: Chest radiograph 08/18/2018 60 Clinical Indication: Line Placement - Status post PPM/ICD Implantation Findings: Stable left chest wall defibrillator. Similar elevation the right hemidiaphragm with right basilar atelectasis. No pleural effusion or pneumothorax. The cardiac silhouette is within normal limits of size. Midline trachea. Tortuous thoracic aorta with atherosclerotic calcifications. Degenerative changes of the spine and shoulders. Cervical spine fusion hardware. Right upper quadrant surgical clips. IMPRESSION: Stable left chest wall defibrillator. No pneumothorax. SL: WR2-M 08/19/2018 [facility] Chest 1 v for Placement DX Pat ient Name: FELIPE PORTER : 1940; Age: 78 years y/o Female MR: [id number] Study: Chest 1 v for Placement DX 08/18/2018 10:12 AM CDT Ordering Physician: Doug Baez MD Comparison: None Clinical Indication: Line Placement - Status post PPM/ICD Implantation Findings: Left chest wall defibrillator with 2 intact leads overlying the right ventricle. Mild elevation of the right hemidiaphragm with right basilar airspace opacity which likely represents atelectasis. Hyperdensity overlying the right 3rd rib a represent a calcified granuloma or bone island. No pleural effusion or pneumothorax. The cardiac silhouette is within normal limits of size. Atherosclerotic calcifications of the thoracic aorta. Degenerative changes of the spine and shoulders. Cervical spine fusion hardware. Right upper quadrant surgical clips. IMPRESSION: Left chest wall defibrillator as detailed above. No pneumothorax. SL: WR2-M 08/18/2018 [facility] Consultation Notes No Data Provided for This Section Discharge Summaries No Data Provided for This Section History and Physicals No Data Provided for This Section Vital Signs Vital Sign Value Date Comments Source Heart Rate 78 08/24/2018 [facility] Temperature Oral (F) 97.9 F 08/24/2018 [facility] Systolic (mm Hg) 147 08/24/2018 [facility] Diastolic (mm Hg) 61 08/24/2018 [facility] Temperature Oral (F) 97.6 F 08/24/2018 [facility] Heart Rate 77 08/24/2018 [facility] Systolic (mm Hg) 111 08/24/2018 [facility] Diastolic (mm Hg) 69 08/24/2018 [facility] Temperature Oral (F) 98.0 F 08/24/2018 [facility] Heart Rate 79 08/24/2018 [facility] Systolic (mm Hg) 161 08/24/2018 [facility] Diastolic (mm Hg) 80 08/24/2018 [facility] Respitory Rate 16 08/24/2018 [facility] Respitory Rate 16 08/24/2018 [facility] Respitory Rate 16 08/24/2018 [facility] Weight 59.091 08/20/2018 [facility] Height 162.56 cm 08/20/2018 [facility] BMI Calculated 22.36 08/20/2018 [facility] Systolic (mm Hg) 144 08/19/2018 [facility] Diastolic (mm Hg) 82 08/19/2018 [facility] Heart Rate 79 08/19/2018 [facility] Respitory Rate 18 08/19/2018 [facility] Temperature Oral (F) 98.3 F 08/19/2018 [facility] Respitory Rate 17 08/19/2018 [facility] Heart Rate 80 08/19/2018 [facility] Temperature Oral (F) 98.0 F 08/19/2018 [facility] Systolic (mm Hg) 145 08/19/2018 [facility] Diastolic (mm Hg) 81 08/19/2018 [facility] Systolic (mm Hg) 145 08/19/2018 [facility] Diastolic (mm Hg) 86 08/19/2018 [facility] Respitory Rate 17 08/19/2018 [facility] Temperature Oral (F) 97.9 F 08/19/2018 [facility] Heart Rate 80 08/19/2018 [facility] Weight 59.091 08/15/2018 [facility] BMI Calculated 23.83 08/15/2018 [facility] Height 157.48 cm 08/15/2018 [facility] Systolic (mm Hg) 130 05/03/2018 [facility] Diastolic (mm Hg) 66 05/03/2018 [facility] Respitory Rate 18 05/03/2018 [facility] Heart Rate 86 05/03/2018 [facility] Temperature Oral (F) 98.2 F 05/03/2018 [facility] Heart Rate 99 05/03/2018 [facility] Temperature Oral (F) 98.2 F 05/03/2018 [facility] Respitory Rate 18 05/03/2018 [facility] Systolic (mm Hg) 115 05/03/2018 [facility] Diastolic (mm Hg) 73 05/03/2018 [facility] Heart Rate 78 05/03/2018 [facility] Systolic (mm Hg) 144 05/03/2018 [facility] Diastolic (mm Hg) 69 05/03/2018 [facility] Temperature Oral (F) 97.9 F 05/03/2018 [facility] Respitory Rate 18 05/03/2018 [facility] BMI Calculated 25.6 05/02/2018 [facility] Weight 63.5 05/02/2018 [facility] Height 157.48 cm 05/02/2018 [facility] BMI Calculated 25.2 04/30/2018 [facility] Weight 62.5 04/30/2018 [facility] Height 157.48 cm 04/30/2018 [facility] Encounters Location Location Details Encounter Type Encounter Number Reason For Visit Attending Provider ADM Date DC Date Status Source [facility] Inpatient [id number] Severo Butterfield 05/01/2018 05/04/2018 [facility] Bedded Outpatient [id number] Doug Baez 08/18/2018 08/19/2018 [facility] Inpatient [id number] Starr Castillo 08/20/2018 08/24/2018 [facility] [id number] Allan Knapp 07/03/2019 08/02/2019 [facility] Procedures Procedure Code Date Perfomer Comments Source Procedure [id number] 06/30/2018 [facility] Stent placement [id number] 04/01/2018 [facility] Appendectomy [id number] [facility] Cardiac catheterisation, left heart [id number] [facility] Cataract surgery [id number] [facility] Cholecystectomy [id number] [facility] Colonoscopy [id number] [facility] 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 [id number] [facility] Hysterectomy [id number] [facility] Rectal operation [id number] [facility] Tonsillectomy [id number] [facility] Assessment and Plan Assessment and Plan Date Source Extracted from:Title: Clinical Document Author: Starr Castillo MD Date: 08/24/18 Daily Progress Note [facility] Starr Castillo MD SUBJECTIVE: pt seen and examined, events noted no new c/o today OBJECTIVE: Vitals and Temp: Vitals Tmp(F) Pulse BP RR SpO2 FIO2 08/24 11:02 97.6 77 111/69 - - 95 --- 08/24 07:22 98.0 79 161/80 - - 94 --- 08/24 05:45 ---- 80 162/82 - - --- --- 08/24 04:38 ---- --- 184/99 -- --- --- 08/24 04:20 98.1 89 194/97 1 6 95 --- 24 Hr Tmax: 98.2F (36.78c) at 08/23 20:1 9 Vital Signs are the last 5 in the past 48 hours. Labs (Last four charted values) WBC 8.1 (AUGUST 23) 8.3 (AUGUST 20) Hgb 15.0 (AUGUST 23) 14.3 (AUGUST 20) Hct 46.3 (AUGUST 23) 43.5 (AUGUST 20) Plt 203 (AUGUST 23) 200 (AUGUST 20) Na 143 (AUGUST 23) 139 (AUGUST 20) K L 3.3 (AUGUST 23) 4.2 (AUGUST 20) CO2 L 19 (AUGUST 23) L 20 (AUGUST 20) Cl H 111 (AUGUST 23) 108 (AUGUST 20) Cr 0.70 (AUGUST 23) 0.88 (AUGUST 20) BUN 14 (AUGUST 23) 16 (AUGUST 20) Glucose Random H 133 (AUGUST 23) H 135 (AUGUST 20) Mg L 1.6 (AUGUST 23) Ca 8.9 (AUGUST 23) 8.6 (AUGUST 20) PT 13.4 (AUGUST 20) INR 1.04 (AUGUST 20) PTT 28.2 (AUGUST 20) Troponin 0.39 (AUGUST 21) C 0.64 (AUGUST 20) ASSESSMENT and EXAM: General: in no apparent distress at this time. Eyes: Pupils equal, round and reactive to light. Eyes normal inspection. ENT: Ears normal. Nose normal. Pharynx normal. Neck: Normal inspection. No jugular venous distention. Neck supple. CVS: Heart sounds normal. Pulses normal. no murmurs Respiratory: No respiratory distress. Breath sounds normal. no wheezing Abdomen: Soft and nontender. no organomegaly Back: Normal inspection. Skin: Skin warm and dry. Normal skin color. Extremities: Extremities exhibit normal ROM. No lower extremity edema. Neuro: Oriented X 3. No motor deficit. DIAGNOSES and PROBLEMS: *Syncope likely due to dehydration/medication effect *Non-ST elevation SD *Hypertension *Recent biventricular cardiac defibrillator placement *Past history of CVA *Hypertension *Hyperlipidemia. *allergic rxn to hydralazine? PLAN and TREATMENT: Elevated troponin likely from recent pacemaker placement, not ACS. Continue plavix s/p ICD revision keep pressure dressing x 1 week. Continue metoprolol. Orthostatic vitals are negative hopeful discharge adjust BP meds for uncontrolled HTN MEDICATIONS Scheduled Meds ():(Suspended) apixaban (Eliquis), atorvastatin, bumetanide (Bumex), clopidogrel, docusate, ferrous sulfate, folic acid, gabapentin (gabapentin 300 mg oral capsule), lisinopril, metoprolol (metoprolol extended release), minocycline, pantoprazole, spironolactone Unscheduled Meds: None PRN Meds ():Dextrose 50% in Water IV (Dextrose 50% Syringe), Dextrose 50% in Water IV (Dextrose 50% Syringe), Dextrose 50% in Water IV (Dextrose 50% Syringe), Dextrose 50% in Water IV (Dextrose 50% Syringe), acetaminophen, cloNIDine, glucagon, glucagon, hydrALAZINE, insulin lispro, insulin lispro, insulin lispro, insulin lispro, insulin lispro, insulin lispro, insulin lispro, insulin lispro, insulin lispro, morphine Sulfate, ondansetron, sodium chloride (Saline Flush 0.9%), trazodone One Time Meds (1):(not done) potassium chloride Continuous Infusions: None Extracted from:Title: Cardiology Consultation Author: Severo Butterfield MD Date: 08/20/18 [facility] Consult Note Attending: Starr Castillo MD Service: Internal Medicine Code status: Full Code Reason for Admission: SYNCOPE, ELEVATED TROPONIN Working DRG: Isolation: No Isolation/Standard Precautions Consulting Physicians: Don Garcia MD Office: Service: Cardiology Severo Butterfield MD Office: Service: Cardiology Reason for Consultation: elevated troponin, syncope Chief Complaint: syncope HPI: 78 yo with CAD s/p RCA stent, afib diffi cult to rate control s/p AV node ablation and Bi-V ICD placement earlier this week, chronic CHF with EF 25% who presents with episode of dizziness at home while going to the bathroom, "blacked out" for a few seconds. No head trauma. Review of Systems: 10 point review of system was performed and was negative other than mentioned in HPI. Past Medical History: No qualifying data available Family History: Sister: Cancer, Breast; Cancer, Colon Social History: Alcohol Details: Past Tobacco Details: Use: Former smoker. Tobacco smoke exposure: None, see note. Other Tobacco Frequency sometimes at home- family smokes outdoors. Did the Patient Smoke Cigarettes Anytime During the Last 365 Days? No. Cessation Counseling Provided? No. Substance Abuse Details: Use: None. Exam: Vitals Tmp(F) Pulse BP RR SpO2 FIO2 08/21 09:48 ---- 79 ----- -- --- --- 08/21 07:39 98.1 79 152/80 1 6 97 --- 08/21 05:07 97.9 80 177/90 1 6 99 --- 08/20 23:14 98.3 79 165/81 1 6 97 --- 08/20 22:29 ---- 80 161/88 - - --- --- 24 Hr Tmax: 98.3F (36.83c) at 08/20 23:1 4 Vital Signs are the last 5 in the past 48 hours. Date Wt(kg) Wt(lb) Ht(cm) Ht(in) Method 08/20 (initial) 59.09 130.00 162.56 64.00 Estimated I/O Intake Output Balance 08/21/2018 7a-3p 420.00 0.00 420.00 As of 11:02 3p-11p 0.00 0.00 0.00 11p-7a 0.00 0.00 0.00 Totals 420.00 0.00 420.00 08/20/2018 7a-3p 500.00 0.00 500.00 3p-11p 0.00 0.00 0.00 11p-7a 0.00 0.00 0.00 Totals 500.00 0.00 500.00 08/19/2018 7a-3p 0.00 0.00 0.00 3p-11p 0.00 0.00 0.00 11p-7a 0.00 0.00 0.00 Totals 0.00 0.00 0.00 Eyes: conjunctivae clear. ENMT: normal mucosa. No pallor or bleeding. Neck: No jugular venous distention. MSK: Normal muscle tone and strength. No atrophy or abnormal movements. Extremities: No clubbing or cyanosis. Skin: No venous stasis changes or ulcers. General: well developed. well nourished. thin. Cardiovascular: PMI non displaced. regular. S1 and S2. No murmurs, rubs or gallops. Respiratory: No respiratory distress. Clear to auscultation bilaterally. Abdomen: soft, non-tender, no masses. No hepato- or splenomegaly. Neuro/Psych: Alert and oriented to person, place and time. Normal affect. Allergies: HYDROcodone, Tape, Adhesive Medications (20) Active Scheduled Meds (): 08/21/18 AMIODarone 200 mg PO Daily 08/20/18 atorvastatin 40 mg PO Bedtime 08/21/18 clopidogrel 75 mg PO Daily 08/20/18 docusate 100 mg PO BID 08/20/18 ferrous sulfate 325 mg PO TID 08/21/18 folic acid 0.4 mg PO Daily 08/20/18 gabapentin (gabapentin 300 mg o ral capsule) 300 mg PO TID 08/20/18 lisinopril 40 mg PO Daily 08/22/18 metoprolol (metoprolol extended release) 50 mg PO Daily 08/20/18 minocycline 100 mg PO [id number] 08/21/18 pantoprazole 40 mg PO Before Br eakfast Unscheduled Meds: None PRN Meds (7): 08/20/18 Dextrose 50% in Water IV (Dextr ose 50% Syringe) 12.5 gm IVP PRN 08/20/18 Dextrose 50% in Water IV (Dextr ose 50% Syringe) 25 gm IVP PRN 08/20/18 acetaminophen 650 mg PO Q4H 08/20/18 glucagon 1 mg IM PRN 08/20/18 ondansetron 4 mg IVP Q8H 08/20/18 sodium chloride (Saline Flush 0 .9%) 10 mL IVP PRN 08/20/18 trazodone 50 mg PO Bedtime One Time Meds (2): 08/20/18 (Completed) Sodium Chloride 0. 9% IV (Sodium Chloride 0.9% (Bolus) IV) 500 mL IV ONCE 08/20/18 (Completed) aspirin 324 mg PAMELA W ONCE Continuous Infusions: None Labs (Last four charted values) WBC 8.3 (AUGUST 20) Hgb 14.3 (AUGUST 20) Hct 43.5 (AUGUST 20) Plt 200 (AUGUST 20) Na 139 (AUGUST 20) K 4.2 (AUGUST 20) CO2 L 20 (AUGUST 20) Cl 108 (AUGUST 20) Cr 0.88 (AUGUST 20) BUN 16 (AUGUST 20) Glucose Random H 135 (AUGUST 20) Ca 8.6 (AUGUST 20) PT 13.4 (AUGUST 20) INR 1.04 (AUGUST 20) PTT 28.2 (AUGUST 20) Troponin C 0.64 (AUGUST 20) Imaging: Reviewed. Telemetry: paced ECG: paced Echo: EF 25%, recent echo in office Cath: s/p RCA PCI earlier this year, non obstructive CAD otherwise. Assessment: Abnormal levels of other serum enzymes (R74.8) Syncope and collapse (R55) Plan: -elevated troponin likely from recent pa cemaker placement, not ACS, no need for anticoagulation -continue plavix and eliquis -ICD check -will decrease doses of metoprolol now t hat she has had AVN ablation -stop digoxin -relatively euvolemic on exam -orthostatic vitals are negative Thank you for involving us in this patient's care. Extracted from:Title: Clinical Document Author: Adelfo Greene MD Date: 08/20/18 Date of admission: 08/20/2018. Reason for admission 1. Syncopal episode. History of present illness Ms. Porter is a 78-year-old woman with systolic congestive heart failure ejection fraction of 20% and atrial fibrillation who is status post on 08/18 AICD/pacemaker placement. She went home without any issues. She got up this morning was feeling fine had breakfast and was doing well and then took a muscle relaxant which she was supposed to take in the evening. Following taking the muscle relaxant she started to get dizzy and had multiple episodes of syncopal episode that lasted for several seconds. Per the family the patient went "limp" but no seizure-like activity, rhythmic movement of the arms or legs or urinary or bowel and. Even in the ER she had another event of fall and patient denies any associated chest pain or palpitations. Patient reports taking this medication in the evening and is doing fine without any issues but taking this during the day has been done for the first time leading to the above issue. At this time patient denies any chest pain denies any shortness of breath at rest, denies having any peripheral swelling. Reports having some aching pain in the left chest where the recent pacemaker is placed. Denies having any recent fever or chills. Denies having any pain with urination. Past medical history 1. Nonischemic cardiomyopathy ejection fraction of 20% 2. Congestive heart failure ejection fr action of 30% 3. Atrial fibrillation 4. Hypertension 5. Hyperlipidemia. Medications at home: Please see admission form. Past surgical history 1. Appendectomy, cholecystectomy. Social history: Denies any tobacco alcohol use. Allergies: Adhesive and hydrocodone, tape. Review of system: As per HPI. Family history: Reviewed but noncontributory. Physical physical examination Vitals: Blood pressure 183/93, pulse of 80, respiratory 25, 95% with temperature of 97.7. Gen: AAOX3, NAD Neuro: Moving all extremities well CV: RRR, S1 and S2 Ecchymosis of the left pectoralis region. No excessive warmth or drainage from post-op site. Lung: CTA-B Abdomen: Non-distended, non-tender, no rebound or gaurding, bowel sounds are present. : no suprapubic region tenderness. No CVA region tenderness. EXT: no peripheral edema. Skin: no rashes or other skin color changes. Diagnostic studies EKG showing a paced rhythm. CT the brain: No evidence of acute process mild chronic small with no ischemic changes. Chest x-ray: No acute cardiopulmonary issues. Laboratory data Sodium of 139, creatinine 0.88, LFTs are normal, troponin of 0.64. White blood cell count of 8.3, hemoglobin of 14. Platelets of 200. Urinalysis overall unremarkable without any leukocyte esterase poor catch given high concentration of squamous cells. Assessment and plan Ms. Porter is a 78-year-old woman who recently had biventricular cardiac defibrillator placement on 08/18. She was syncopal episode likely due to dehydration, postoperative state, and likely take of muscle relaxant in the morning which she was supposed taken anything. From a cardiac point of view she denies any chest pain or palpitations. First set of cardiac enzymes are mildly elevated likely due to recent procedure. There are no signs of acute infectious causes going on or at least reported by the patient she remains afebrile. Acute issues *Syncope likely due to dehydration/medication effect *Non-ST elevation SD *Hypertension *Recent biventricular cardiac defibrillator placement *Past history of CVA *Hypertension *Hyperlipidemia. Plan Syncope secondary to dehydration like medication effect, we will hold the muscle relaxant at this time. She is able to eat and therefore I will avoid IV fluids given her poor ejection fraction. Encourage further oral intake. Admit to inpatient and hold sedative medications including muscle relaxants. Non-ST relation Ferdinand infarction, likely due to recent procedure, she has no chest pain, I will avoid further troponin checks unless she developed shortness of breath or chest pain. Atrial fibrillation, resume amiodarone, she is on Eliquis which can be resumed per cardiology. Minocycline for postprocedure infection prevention to be resumed. Resume all medications once reconciled. DVT prophylaxis: Resume Eliquis once okay with cardiology Disposition: Likely will need 2 to 3 days of admission. 08/24/2018 PATITO Ortega Extracted from:Title: Cardiology Progres s Note * Author: Severo Butterfield MD Date: 05/03/18 Impression and Plan Imaging: Reviewed. Telemetry: afib, rate controlled ECG: rate controlled afib Echo: EF ~30% Stress: none Cath: successful PCI to RCA with GUME x 2 Assessment: 1. CAD 2. ischemic cardiomyopathy 3. chronic systolic heart failure 4. afib Plan: -plavix and eliquis (no aspirin) -continue OMT for chf otherwise. -ambulate with assistance -replace potassium -discharge home once potassium replaced and rechecked Extracted from:Title: Cardiology History and Physical Author: Severo Butterfield MD Date: 05/01/18 [facility] History and Physical Note Attending: Severo Butterfield MD Service: Cardiology Code status: Full Code Reason for Admission: LT HEART CATH / POSS PCI /C IMPELLA Working DRG: Isolation: None Documented Consulting Physicians: (none on file) Chief Complaint: CAD CHF HPI: 77 yo whom I met last week at an outside hospital. She presented with acute systolic CHF exacerbation, EF 30%, afib with RVR and chest pain. Coronary angiogram showed severe calcified mid RCA lesion. PCI and atherectomy attempt without LV support was unsuccessful due to severe hypotension and hemodynamic instability. Today she presented for planned PCI of RCA with impella support. Successful atherectomy and stenting of RCA under impella support performed today without any complications. Admitting overnight for close monitoring and further medical treatment. Review of Systems: 10 point review of system was performed and was negative other than mentioned in HPI. Past Medical History: No qualifying data available Family History: No qualifying data available Social History: Alcohol Details: Past Tobacco Details: Use: Former smoker. Tobacco smoke exposure: see note. Other Tobacco Frequency sometimes at home- family smokes outdoors. Did the Patient Smoke Cigarettes Anytime During the Last 365 Days? No. Cessation Counseling Provided? No. Exam: Vitals Tmp(F) Pulse BP RR SpO2 FIO2 05/01 15:30 ---- 71 98/54 -- 100 2.0L/m 05/01 15:15 ---- 71 123/55 - - 99 2.0L/m 05/01 15:00 ---- 75 119/59 - - 96 2.0L/m 05/01 14:45 ---- 64 114/57 - - 92 --- 05/01 14:40 ---- 67 98/55 -- 92 --- 24 Hr Tmax: 98.2F (36.78c) at 05/01 07:1 5 Vital Signs are the last 5 in the past 48 hours. Date Wt(kg) Wt(lb) Ht(cm) Ht(in) Method 04/30 (initial) 62.50 137.50 Measured 04/30 157.48 62.00 Stated Eyes: conjunctivae clear. ENMT: normal mucosa. No pallor or bleeding. Neck: No jugular venous distention. MSK: Normal muscle tone and strength. No atrophy or abnormal movements. Extremities: No clubbing or cyanosis. Skin: No venous stasis changes or ulcers. General: well developed. well nourished. elderly. Cardiovascular: PMI non displaced. irregular. S1 and S2. No murmurs, rubs or gallops. Normal carotid pulses. Palpable femoral pulses. Palpable pedal pulses. No peripheral edema or varicosities. Respiratory: No respiratory distress. Clear to auscultation bilaterally. Abdomen: soft, non-tender, no masses. No hepato- or splenomegaly. Neuro/Psych: Alert and oriented to person, place and time. Normal affect. Allergies: HYDROcodone, Tape, Adhesive Medications (10) Active Scheduled Meds (9): 05/01/18 apixaban (Eliquis) 5 mg PO Q12H 05/02/18 aspirin (aspirin 81 mg tablet, enteric coated) 81 mg PO Daily 05/01/18 atorvastatin 80 mg PO Bedtime 05/02/18 clopidogrel (Plavix) 75 mg PO D aily 05/02/18 folic acid 0.8 mg PO Daily 05/02/18 levothyroxine 50 microgram PO Q 630AM 05/02/18 lisinopril 5 mg PO Daily 05/02/18 metoprolol (metoprolol extended release) 100 mg PO Daily 05/01/18 pantoprazole 40 mg PO Before Di nner Unscheduled Meds: None PRN Meds (1): 05/01/18 nitroglycerin (nitroglycerin SL Tab) 0.4 mg SL Q5Min One Time Meds: None Continuous Infusions: None Labs (Last four charted values) WBC 8.9 (APR 30) Hgb 12.7 (APR 30) Hct 38.1 (APR 30) Plt 383 (APR 30) Na 139 (APR 30) K 3.5 (APR 30) CO2 24 (APR 30) Cl 105 (APR 30) Cr 1.17 (APR 30) BUN H 47 (APR 30) Glucose Random H 138 (APR 30) Ca 8.8 (APR 30) PT 12.8 (APR 30) INR 0.98 (APR 30) PTT L 20.5 (APR 30) Imaging: Reviewed. Telemetry: afib, rate controlled ECG: rate controlled afib Echo: EF ~30% Stress: none Cath: successful PCI to RCA with GUME x 2 Assessment: 1. CAD 2. ischemic cardiomyopathy 3. chronic systolic heart failure 4. afib Plan: -plavix and eliquis (no aspirin) -continue OMT for chf otherwise. -overnight ICU stay Extracted from:Title: Cardiac Catheterization Report Author: Severo Butterfield MD Date: 05/01/18 [facility] Catheterization Report Attending: Severo Butterfield MD Service: Cardiology Code status: Full Code Reason for Admission: LT HEART CATH / POSS PCI /C IMPELLA Working DRG: Isolation: None Documented Consulting Physicians: (none on file) Introduction: 77 yo with hx of CHF EF 30%, afib, CAD with severely calcified RCA disease, PAD with calcified aorta. She presented with acute heart failure last week to outside hospital. Cath showed severely calcified CAD of RCA. Attempted atherectomy of the RCA unsuccessful due to severe refractory hypotension with athrectomy attempts. Given large territory at risk, low EF and need for atherectomy, patient will need impella support for this high riks PCI. Indications: CAD. CHF, afib Pre-sedation Assessment: Medical history, social history and previous experience with anesthesia was reviewed as documented in the preoperative medical record. Results of relevant diagnostic studies reviewed. Planned choice of anesthesia, risks, complications, benefits, and alternatives discussed. Patient deemed appropriate candidate for planned choice of anesthesia. Consent: The benefits, risks, complications and alternatives to the procedure were discussed with patient and informed consent was obtained from patient or their surrogate. Medications: Please see nursing notes for medications administered during the procedure. Procedures Performed: 1. coronary angiography 2. left heart cath 3. impella insertion 4. impella removal 5. Atherectomy of RCA with Rotablator 1. 5 6. PCI to RCA with GUME x 2 7. Moderate Sedation time: 180 minutes 8. Catheter placement aorta 9. Abdominal aortography 10. catheter placement third order 11. Right lower extremity angiogram 12. MANAGER BEHAVIORAL of right iliac 13. Temporary pacemaker insertion 14. temporary pacemaker removal Procedure Description: Patient was brought to the cardiac catheterization laboratory in a fasting state. Bilateral groins and wrists were prepped and draped in a sterile fashion. Following vascular access was obtained using the modified seldinger technique under ultrasound and fluroscoping guidance as required. 1. 8 welsh sheath in L-OUTREACH AND EDUCATION SOCIAL WORKER 2. 7 Fr sheath in the right CFV A non balloon tipped temporary pacemaker was inserted into the the right CFV and advanced under fluroscopic guidance to the RV and positioned to pace the RV septum. Capture was confirmed. Pacemaker was set at 60 bpm backup rate for the remainder of the procedure and removed at the end of PCI. 3. R-OUTREACH AND EDUCATION SOCIAL WORKER arterial access was obtained us ing micropuncture needle under Ultrasound guidance. Appropriate arteriotomy site was confirmed by performing femoral angiography through the microcatheter. A long J wire was placed at the aortic knob. A 6 Fr dilator was used to dilate the arteriotomy. Two ProGlide suture closure devices were deployed at the arteriotomy in an offset fashion to preclose the site for closure at the end of the procedure. An 8Fr sheath was inserted in the arteriotomy. A 5Fr JR4 catheter was used to exchange the long J wire for an extra stiff 0.035 wire. 8Fr sheath was removed and arteriotomy was serially dilated up to 14 Fr. 14Fr Impella peel away sheath was inserted under fluoroscopy guidance without resistance or complications and flushed. Full anticoagulation was achieved using IV and IC heparin boluses were given as needed throughout the procedure to maintain ACT near 300s. Impella CP device was prepped. Once appropriate level of anticoagulation was confirmed, a 6Fr Pigtail catheter was used to cross the aortic valve with a long J wire and J wire was then exchanged for the 0.018" Impella Platinus Plus wire. Pigtail catheter was removed and 0.018" Platinus Plus wire was left in place in the LV. Impella CP device was advanced over the wire however was not able to pass the stenosis at the ostium of the right iliac. Platinus plus wire was removed. An 0.035" stiff wire was placed in the aorta and the short 14 Fr sheath was removed. We attempted to advance a 30 cm, 14 Fr Cook sheath past the ostial iliac stenosis however were not able to pass it. We then pulled the sheath back and performed MANAGER BEHAVIORAL of right iliac ostium with 7.0 x 80 mm balloon at 7 john. Baloon was removed and we were able to easily advance the 30 cm 14 Fr sheath past the ostium of the iliac. Once again a pigtail catheter was advanced into the LV over a 0.035" wire. 0.035" wire was exchanged for a 0.018" Creek Plus wire was inserted into the LV and Pigtail catheter was removed. Impella CP device was once again advandced over the wire into the LV under fluoroscopic guidance. Impella wire was removed and proper function and adequate LV support was confirmed. For PCI of the RCA, an 8Fr JR4 guide was used, which provided adequate support. Lesion was wired using a [email or web address] Prowater 0.014" wire, however we were unable to advance a Area Field Person microcatheter past the lesion. Prowater was then removed and lesion was directly wired using a Rota-Floppy 0.009" wire with some difficulty. Atherectomy of the mid RCA was performed using a Rotablator 1.5 mm [place], 3-4 passes at 165k rpm. This provided and excellent angiographic result. Balloon angioplasty was performed using a 3.0 x 15 mm balloon. Stenting was performed using overlapping Synergy 3.0 x 20 and 3.5 x 20 mm drug eluting stents. This provided an excellent angiographic result, without any dissection, thrombus or spasm. At the end of the PCI the Impella was slowly weaned down to P-2 in a stepwise manner. Hemodynamic stability was confirmed and Impella was removed into the descending thoracic aorta. Impella was turned off to P-0 and removed through the Impella sheath. 14Fr sheath was removed and arteriotomy was closed using Proglide devices placed at the beginning of the procedure. Adequate hemostasis was confirmed. Subsequently the 8Fr guide was removed from the left groin and access sites closed using ProGlide vascular closure devices. The case ended without any complications. Estimated blood loss approximately 50 mL. Conclusions: Successful PCI to Complications: None Specimen Removed: None Implants: ProGlide x 4 Estimated Blood Loss: 50 mL. Recommendations: 1.Usual post PCI care and observation as ordered. 2.Maintain anticoagulation with Plavix a nd Apixaban (no aspirin) for at least 1 year followed by asa 81 and apixaban for life. 3. Medical therapy with aggressive risk factor modification for secondary prevention of CAD. 4. Follow up in clinic in 2 weeks after discharge. 05/04/2018 [facility] Plan of Care No Data Provided for This Section Social History Social History Date Source Social History TypeResponse Alcohol Past Substance Abuse Use: None. Smoking Status Former smoker; Exposure to Tobacco Smoke None; Exposure to Tobacco Smoke see note; Cigarette Smoking Last 365 Days No; Reg Smoking Cessation Counseling No; Other Tobacco Frequency sometimes at home- family smokes outdoors; entered on: 08/20/18 08/20/2018 [facility] Social History TypeResponse Alcohol Past Substance Abuse Use: None. Smoking Status Former smoker; Exposure to Tobacco Smoke None; Exposure to Tobacco Smoke see note; Cigarette Smoking Last 365 Days No; Reg Smoking Cessation Counseling No; Other Tobacco Frequency sometimes at home- family smokes outdoors; entered on: 08/20/18 08/20/2018 [facility] Josias Family History No Data Provided for This Section Advance Directives No Data Provided for This Section Functional Status No Data Provided for This Section
--- OUTSIDE RECORDS SUMMARY | 2019-08-24 16:54 | XMS REPORT | Summary of Care ---
Author Author [facility] Address Unknown Phone Unavailable Encounter LYN Bess(NICKOLAS) [id number] Date(s): 07/03/19 - 08/01/19 [facility] Discharge Disposition: Home or Self Care Attending Physician: Allan Knapp MD Vital Signs No data available for this section Problem List Condition Effective Dates Status Health Status Informan t Atrial Active fibrillation(Confirm ed) CHF (congestive Active heart failure)(Confirmed) Diabetes Active mellitus(Confirmed) SOB (shortness of Active breath) on exertion(Confirmed) GERD Active (gastroesophageal reflux disease)(Confirmed) Hypertension(Confirm Active ed) Hypothyroidism(Confi Active rmed) Venous (peripheral) Active insufficiency(Confir med) Allergies, Adverse Reactions, Alerts Substance Reaction Severity Status Adhesive Active Tape Active HYDROcodone Active Medications No data available for this section Results No data available for this section Immunizations No data available for this section Procedures Procedure Date Related Diagnosis Body Site Status Procedure 06/30/18 Completed Stent placement 04/01/18 Completed Appendectomy Completed Cardiac catheterisation, left heart Completed Cataract surgery Completed Cholecystectomy Completed Colonoscopy Completed Fusion of joint of cervical spine by anterior Com pleted approach for deformity of cervical spin e Hysterectomy Completed Rectal operation Completed Tonsillectomy Completed Social History Social History Type Response Alcohol Past Substance Abuse Use: None. Smoking Status Former smoker; Exposure to Tobacco Smoke None; Exposure to Tobacco Smoke see note; Cigarette Smoking Last 365 Da ys No; Reg Smoking Cessation Counseling No; Other Tobacco Frequency sometimes at home- family smokes outdoors; entered on: 08/20/18 Assessment and Plan No data available for this section
--- OUTSIDE RECORDS SUMMARY | 2019-08-24 16:54 | XMS REPORT | Summary of Care ---
Author Author [facility] Organization [facility] Address Unknown Phone Unavailable Encounter LYN Bess(NICKOLAS) [id number] Date(s): 05/01/18 - 05/03/18 [facility] [address] [place] [address]- Encounter Diagnosis Atherosclerotic heart disease of citizen [place] coronary artery without angina pectoris (Final) - 05/06/18 Chronic systolic (congestive) heart failure (Final) - Ischemic cardiomyopathy (Final) - Unspecified atrial fibrillation (Final) - Coronary atherosclerosis due to calcified coronary lesion (Final) - Atherosclerosis of aorta (Final) - Dysphagia, unspecified (Final) - Hypertensive heart disease with heart failure (Final) - Congenital hypothyroidism without goiter (Final) - Type 2 diabetes mellitus without complications (Final) - Paroxysmal atrial fibrillation (Final) - Mixed hyperlipidemia (Final) - Personal history of nicotine dependence (Final) - Discharge Disposition: Home or Self Care Attending Physician: Severo Butterfield MD Admitting Physician: Severo Butterfield MD Referring Physician: Severo Butterfield MD Vital Signs 1 2 3 Most recent to oldest [Reference Range]: 157.48 cm (05/01/18 9:35 PM) 157.48 cm (04/30/18 9:33 AM) Height 98.2 DegF (05/03/18 3:58 PM) 98.2 DegF (05/03/18 12:16 PM) 97.9 DegF (05/03/18 7:57 AM) Temperature Oral [96.4-99.1 DegF] 130/66 mmHg (05/03/18 3:58 PM) 115/73 mmHg (05/03/18 12:16 PM) 144/69 mmHg *HI* (05/03/18 7:57 AM) Blood Pressure [90-140/60-90 mmHg] 18 BRMIN (05/03/18 3:58 PM) 18 BRMIN (05/03/18 12:16 PM) 18 BRMIN (05/03/18 7:57 AM) Respiratory Rate [14-20 BRMIN] 86 bpm (05/03/18 3:58 PM) 99 bpm (05/03/18 12:16 PM) 78 bpm (05/03/18 7:57 AM) Peripheral Pulse Rate [60-100 bpm] 63.5 kg (05/01/18 9:35 PM) 62.5 kg (04/30/18 9:33 AM) Weight 25.6 m2 (05/01/18 9:35 PM) 25.2 m2 (04/30/18 9:33 AM) Body Mass Index Problem List Condition Effective Dates Status Health Status Informan t Atrial Active fibrillation(Confirm ed) CHF (congestive Active heart failure)(Confirmed) Diabetes Active mellitus(Confirmed) SOB (shortness of Active breath) on exertion(Confirmed) GERD Active (gastroesophageal reflux disease)(Confirmed) Hypertension(Confirm Active ed) Hypothyroidism(Confi Active rmed) Venous (peripheral) Active insufficiency(Confir med) Allergies, Adverse Reactions, Alerts Substance Reaction Severity Status Adhesive Active Tape Active HYDROcodone Active Medications acetaminophen 650 mg, 2 tab, Route: PO, Drug form: TAB, Q6H, Dosing Weight 63.5, kg, PRN Pain 4-6/Temp > 100.4 F, Start date: 05/02/18 8:31:00 COLLECTIONS REP, Duration: 30 day, Stop date: 06/01/18 8:30:00 COLLECTIONS REP Notes: Do not exceed 4 gm/day. (Same as: Tylenol) Start Date: 05/02/18 Stop Date: 05/03/18 Status: Discontinued apixaban 5 mg oral tablet 5 mg = 1 tab, PO, Q12H, # 180 tab, 3 Refill(s) Start Date: 05/03/18 Stop Date: 08/24/18 Status: Discontinued aspirin 81 mg tablet, enteric coated 81 mg, 1 tab, Route: PO, Drug form: ECTAB, Daily, Dosing Weight 62.5, kg, Start date: 05/02/18 9:00:00 COLLECTIONS REP, Duration: 30 day, Stop date: 05/31/18 9:00:00 COLLECTIONS REP Notes: Do not crush or chew.(Same As: Ecotrin) Start Date: 05/02/18 Stop Date: 05/01/18 Status: Canceled aspirin 81 mg tablet, enteric coated 81 mg = 1 tab, PO, Daily, # 90 tab, 3 Refill(s) Start Date: 04/30/18 Stop Date: 05/03/18 Status: Discontinued aspirin 81 mg tablet, enteric coated 81 mg = 1 tab, PO, Daily, # 90 tab, 3 Refill(s) Start Date: 04/30/18 Stop Date: 05/01/18 Status: Discontinued atorvastatin 80 mg, 2 tab, Route: PO, Drug form: TAB, Bedtime, Dosing Weight 62.5, kg, Start date: 05/01/18 21:00:00 COLLECTIONS REP, Duration: 30 day, Stop date: 05/30/18 21:00:00 COLLECTIONS REP Notes: (Same as: Lipitor) Start Date: 05/01/18 Stop Date: 05/03/18 Status: Discontinued atorvastatin 40 mg oral tablet 40 mg = 1 tab, PO, Bedtime, # 30 tab, 0 Refill(s) Start Date: 04/30/18 Status: Ordered clopidogrel 75 mg oral tablet 75 mg = 1 tab, PO, Daily, # 30 tab, 0 Refill(s) Start Date: 04/30/18 Stop Date: 05/03/18 Status: Discontinued clopidogrel 75 mg oral tablet 75 mg = 1 tab, PO, Daily, # 90 tab, 3 Refill(s) Start Date: 05/03/18 Stop Date: 04/28/19 Status: Ordered Eliquis 5 mg, 1 tab, Route: PO, Drug form: TAB, Q12H, Dosing Weight 62.5, kg, Start date : 05/01/18 21:00:00 COLLECTIONS REP, Duration: 30 day, Stop date: 05/31/18 9:00:00 COLLECTIONS REP Notes: Same as: Eliquis Start Date: 05/01/18 Stop Date: 05/03/18 Status: Discontinued esomeprazole 40 mg oral delayed release capsule 40 mg = 1 cap, PO, Daily, # 30 cap, 0 Refill(s) Start Date: 04/30/18 Stop Date: 08/15/18 Status: Completed Fish Oil 500 mg oral capsule 1,000 mg = 2 cap, PO, BID, 0 Refill(s) Start Date: 04/30/18 Status: Ordered folic acid 0.8 mg, 2 tab, Route: PO, Drug form: TAB, Daily, Dosing Weight 62.5, kg, Start d ate: 05/02/18 9:00:00 COLLECTIONS REP, Duration: 30 day, Stop date: 05/31/18 9:00:00 COLLECTIONS REP Start Date: 05/02/18 Stop Date: 05/03/18 Status: Discontinued folic acid 0.8 mg, PO, Daily, 0 Refill(s) Start Date: 05/01/18 Stop Date: 08/15/18 Status: Completed gabapentin 300 mg, 1 cap, Route: PO, Drug form: CAP, QAM, Dosing Weight 63.5, kg, Priority: NOW, Start date: 05/03/18 12:10:00 COLLECTIONS REP, Duration: 30 day, Stop date: 06/02/18 9 :00:00 COLLECTIONS REP Notes: (Same as: Neurontin) Start Date: 05/03/18 Stop Date: 05/03/18 Status: Discontinued gabapentin 600 mg, 2 cap, Route: PO, Drug form: CAP, QPM, Dosing Weight 63.5, kg, Start lida e: 05/03/18 17:00:00 COLLECTIONS REP, Duration: 30 day, Stop date: 06/01/18 17:00:00 COLLECTIONS REP Notes: (Same as: Neurontin) Start Date: 05/03/18 Stop Date: 05/03/18 Status: Discontinued levothyroxine 50 microgram, 1 tab, Route: PO, Drug form: TAB, Q630AM, Dosing Weight 62.5, kg, Start date: 05/02/18 6:30:00 COLLECTIONS REP, Duration: 30 day, Stop date: 05/31/18 6:30:00 COLLECTIONS REP Notes: Take 1 hour before or 2 hours after meal; Enteral feeds may interefere wi th the absorption of this medication.(Same as:Levothroid, Synthroid) Start Date: 05/02/18 Stop Date: 05/03/18 Status: Discontinued levothyroxine 50 mcg (0.05 mg) oral tablet 50 microgram = 1 tab, PO, Daily, # 30 tab, 0 Refill(s) Start Date: 04/30/18 Stop Date: 08/18/18 Status: Completed lisinopril 5 mg, 1 tab, Route: PO, Drug form: TAB, Daily, Dosing Weight 62.5, kg, Start lida e: 05/02/18 9:00:00 COLLECTIONS REP, Duration: 30 day, Stop date: 05/31/18 9:00:00 COLLECTIONS REP Notes: (Same as: Prinivil, Zestril) Start Date: 05/02/18 Stop Date: 05/03/18 Status: Discontinued lisinopril 5 mg oral tablet 5 mg = 1 tab, PO, Daily, # 30 tab, 0 Refill(s) Start Date: 04/30/18 Stop Date: 08/15/18 Status: Completed metoprolol 100 mg oral tablet, extended release 100 mg = 1 tab, PO, BID, 0 Refill(s) Start Date: 05/01/18 Stop Date: 05/03/18 Status: Discontinued metoprolol 100 mg oral tablet, extended release 100 mg = 1 tab, PO, BID, # 180 tab, 3 Refill(s) Start Date: 05/03/18 Stop Date: 08/18/18 Status: Completed metoprolol extended release 100 mg, 1 tab, Route: PO, Drug form: ERTAB, Daily, Start date: 05/02/18 9:00:00 COLLECTIONS REP, Duration: 30 day, Stop date: 05/31/18 9:00:00 COLLECTIONS REP Notes: (Same as: Toprol XL) May split tab, but do not crush. Start Date: 05/02/18 Stop Date: 05/03/18 Status: Discontinued nitroglycerin SL Tab 0.4 mg, 1 tab, Route: SL, Drug form: TAB, Q5Min, Dosing Weight 62.5, kg, PRN Megan st Pain, Start date: 05/01/18 11:32:00 COLLECTIONS REP, Duration: 3 doses or times, Stop lida e: Limited # of times Notes: (Same as:Nitroquick, Nitrostat)"Do Not Crush" Sublingual tablet Start Date: 05/01/18 Stop Date: 05/03/18 Status: Discontinued pantoprazole 40 mg, 1 tab, Route: PO, Drug form: ECTAB, Before Dinner, Dosing Weight 62.5, kg , Start date: 05/01/18 16:30:00 COLLECTIONS REP, Duration: 30 day, Stop date: 05/30/18 16:30 :00 COLLECTIONS REP Notes: Tablet should not be chewed or crushed.(Same as: Protonix) Start Date: 05/01/18 Stop Date: 05/03/18 Status: Discontinued Plavix 75 mg, 1 tab, Route: PO, Drug form: TAB, Daily, Dosing Weight 62.5, kg, Start da te: 05/02/18 9:00:00 COLLECTIONS REP, Duration: 30 day, Stop date: 05/31/18 9:00:00 COLLECTIONS REP Notes: (Same As: Plavix) Start Date: 05/02/18 Stop Date: 05/03/18 Status: Discontinued potassium chloride 40 mEq, 2 tab, Route: PO, Drug form: ERTAB, ONCE, Dosing Weight 63.5, kg, Start date: 05/03/18 7:51:00 COLLECTIONS REP, Stop date: 05/03/18 7:51:00 COLLECTIONS REP Notes: (Same as: K-Dur 20)"Do Not Crush" Give with food and full glass of water For patients unable to swallow tablet, dissolve in one half glass of water. Allo w about 2 minutes for the tablets to disintegrate. Stir before giving to prepare slurry and administer.Please exclude Patients with feeding tube less than 14 [place] (Dobhoff, J-tube etc) and pediatric and patients. Start Date: 05/03/18 Stop Date: 05/03/18 Status: Completed potassium chloride 10 mEq, 100 mL, Route: IVPB, Drug form: INJ, Q1H, Dosing Weight 63.5, kg, Total Dose = 40 meq, Start date: 05/03/18 8:00:00 COLLECTIONS REP, Duration: 4 doses or times, Sto p date: 05/03/18 11:00:00 COLLECTIONS REP, Peripheral Line Notes: Infuse at a rate of 10 mEq/hr.(Same as: KCL) Start Date: 05/03/18 Stop Date: 05/03/18 Status: Completed Protonix 40 mg, 1 tab, Route: PO, Drug form: ECTAB, Before Breakfast, Dosing Weight 63.5, kg, Priority: NOW, Start date: 05/03/18 12:10:00 COLLECTIONS REP, Duration: 30 day, Stop da te: 06/02/18 7:30:00 COLLECTIONS REP Notes: Tablet should not be chewed or crushed.(Same as: Protonix) Start Date: 05/03/18 Stop Date: 05/03/18 Status: Discontinued temazepam 15 mg, 1 cap, Route: PO, Drug form: CAP, Bedtime, Dosing Weight 63.5, kg, PRN Sl eep, Start date: 05/02/18 19:37:00 COLLECTIONS REP, Duration: 30 day, Stop date: 06/01/18 19 :36:00 COLLECTIONS REP Notes: (Same As: Restoril) Start Date: 05/02/18 Stop Date: 05/03/18 Status: Discontinued Results 1 2 3 Most recent to oldest [Reference Range]: 5.3 K/CMM (04/30/18 9:41 AM) Neutrophils # [1.5-8.1 K/CMM] 2.4 K/CMM (04/30/18 9:41 AM) Lymphocytes # [1.0-5.5 K/CMM] 0.7 K/CMM (04/30/18 9:41 AM) Monocytes # [0.0-0.8 K/CMM] 0.4 K/CMM (04/30/18 9:41 AM) Eosinophils # [0.0-0.5 K/CMM] 0.1 K/CMM (04/30/18 9:41 AM) Basophils # [0.0-0.2 K/CMM] 85 mL/min/1.73m2 1 *NA* (05/03/18 4:59 AM) 45 mL/min/1.73m2 2 *NA* (04/30/18 9:41 AM) eGFR 0.7 (04/30/18 9:41 AM) A/G Ratio [0.7-1.6] 3.2 g/dL *LOW* (04/30/18 9:41 AM) Albumin Lvl [3.5-5.0 g/dL] 71 unit/L (04/30/18 9:41 AM) Alk Phos [39-136 unit/L] 19 unit/L (04/30/18 9:41 AM) ALT [0-65 unit/L] 10.9 mEq/L (05/03/18 4:59 AM) 13.5 mEq/L (04/30/18 9:41 AM) AGAP [10.0-20.0 mEq/L] 16 unit/L (04/30/18 9:41 AM) AST [0-37 unit/L] 40 *HI* (04/30/18 9:41 AM) B/C Ratio [6-25] 1.0 % (04/30/18 9:41 AM) Basophils [0.0-1.0 %] 15 mg/dL (05/03/18 4:59 AM) 47 mg/dL *HI* (04/30/18 9:41 AM) BUN [7-22 mg/dL] 8.7 mg/dL (05/03/18 4:59 AM) 8.8 mg/dL (04/30/18 9:41 AM) Calcium Lvl [8.5-10.5 mg/dL] 110 mEq/L *HI* (05/03/18 4:59 AM) 105 mEq/L (04/30/18 9:41 AM) Chloride Lvl [95-109 mEq/L] 25 mEq/L (05/03/18 4:59 AM) 24 mEq/L (04/30/18 9:41 AM) CO2 [24-32 mEq/L] 0.68 mg/dL (05/03/18 4:59 AM) 1.17 mg/dL (04/30/18 9:41 AM) Creatinine Lvl [0.50-1.40 mg/dL] 4.0 % (04/30/18 9:41 AM) Eosinophils [0.0-4.0 %] 4.3 g/dL *HI* (04/30/18 9:41 AM) Globulin [2.7-4.2 g/dL] 121 mg/dL *HI* (05/03/18 4:59 AM) 138 mg/dL *HI* (04/30/18 9:41 AM) Glucose Lvl [70-99 mg/dL] 28.5 % *LOW* (05/03/18 4:59 AM) 38.1 % (04/30/18 9:41 AM) Hct [36.0-48.0 %] 9.5 g/dL *LOW* (05/03/18 4:59 AM) 12.7 g/dL (04/30/18 9:41 AM) Hgb [12.0-16.0 g/dL] 0.98 (04/30/18 9:41 AM) INR [0.85-1.17] 3.6 mEq/L (05/03/18 5:46 PM) 2.9 mEq/L 3 *CRIT* (05/03/18 4:59 AM) 3.5 mEq/L (04/30/18 9:41 AM) Potassium Lvl [3.5-5.1 mEq/L] 27.2 % (04/30/18 9:41 AM) Lymphocytes [20.0-40.0 %] 29.4 pg (05/03/18 4:59 AM) 29.5 pg (04/30/18 9:41 AM) MCH [27.0-31.0 pg] 33.3 g/dL (05/03/18 4:59 AM) 33.2 g/dL (04/30/18 9:41 AM) MCHC [32.0-36.0 g/dL] 88.3 fL (05/03/18 4:59 AM) 88.8 fL (04/30/18 9:41 AM) MCV [80.0-98.0 fL] 7.9 % (04/30/18 9:41 AM) Monocytes [2.0-12.0 %] 7.6 fL (05/03/18 4:59 AM) 8.0 fL (04/30/18 9:41 AM) MPV [7.4-10.4 fL] 143 mEq/L (05/03/18 4:59 AM) 139 mEq/L (04/30/18 9:41 AM) Sodium Lvl [135-145 mEq/L] 316 K/CMM (05/03/18 4:59 AM) 383 K/CMM (04/30/18 9:41 AM) Platelet [133-450 K/CMM] 59.9 % (04/30/18 9:41 AM) Segs [45.0-75.0 %] 7.5 g/dL (04/30/18 9:41 AM) Total Protein [6.4-8.4 g/dL] 12.8 seconds (04/30/18 9:41 AM) PT [12.0-14.7 seconds] 20.5 seconds *LOW* (04/30/18 9:41 AM) PTT [22.9-35.8 seconds] 3.22 M/CMM *LOW* (05/03/18 4:59 AM) 4.29 M/CMM (04/30/18 9:41 AM) RBC [4.20-5.40 M/CMM] 16.2 % *HI* (05/03/18 4:59 AM) 16.6 % *HI* (04/30/18 9:41 AM) RDW [11.5-14.5 %] 0.3 mg/dL (04/30/18 9:41 AM) Bili Total [0.2-1.3 mg/dL] 7.2 K/CMM (05/03/18 4:59 AM) 8.9 K/CMM (04/30/18 9:41 AM) WBC [3.7-10.4 K/CMM] 1Result Comment: The eGFR is calculated using the [...] from the National Kidney Disease Education Program ( NKDEP) which additionally recommends that when the eGFR is used in patients with extremes of body mass index for purposes of drug dosing, the eGFR should be mul tiplied by the estimated BMI. 2Result Comment: The eGFR is calculated using the [...] from the National Kidney Disease Education Program ( NKDEP) which additionally recommends that when the eGFR is used in patients with extremes of body mass index for purposes of drug dosing, the eGFR should be mul tiplied by the estimated BMI. 3Result Comment: Critical Result(s) called to dalila montes de oca at 05/03/2018 05:48 byjw. Read back OK. Immunizations No data available for this section [...] outdoors; entered on: 08/20/18 Assessment and Plan Extracted from: Title: Cardiology Progress Note * Author: Severo Butterfield Date: 05/03/18 Impression and Plan Imaging: Reviewed. Telemetry: afib, rate controlled ECG: rate controlled afib Echo: EF ~30% Stress: none Cath: successful PCI to RCA with HANNAH x 2 Assessment: 1. CAD 2. ischemic cardiomyopathy 3. chronic systolic heart failure 4. afib Plan: -plavix and eliquis (no aspirin) -continue OMT for chf otherwise. -ambulate with assistance -replace potassium -discharge home once potassium replaced and rechecked Extracted from: Title: Cardiology History and Author: Severo Butterfield MD ate: 05/01/18 Physical [facility] Cardiology History and Physical No te Attending: Severo Butterfield MDPhone: Service: Cardiology Code status: Full Code Reason [...] Days? No. Cessation Counseling Provided? No. Exam: VitalsTmp(F)[id number] 05/01 15:30----7198/54--100 2.0L/m 05/01 15:15----48344/55--99 2.0L/m 05/01 15:00----96143/59--96 2.0L/m 05/01 14:45----91829/57--92--- 05/01 14:40----6798/55--92--- 24 Hr Tmax: 98.2F (36.78c) at 05/01 07:1 5Vital Signs are the last 5 in the past 48 hours. DateWt(kg)Wt(lb)Ht(cm)Ht(in)Method 04/30 (initial) 62.50 137.50Measured 57.48 62.00Stated Eyes: conjunctivae clear. ENMT: normal mucosa. No [...] None Labs (Last four charted values) WBC 8.9(APR 30) Hgb 12.7(APR 30) Hct 38.1(APR 30) Plt 383(APR 30) Na 139(APR 30) K 3.5(APR 30) CO2 24(APR 30) Cl 105(APR 30) Cr 1.17(APR 30) BUN H 47(APR 30) Glucose Random H 138(APR 30) Ca 8.8(APR 30) PT 12.8(APR 30) INR 0.98(APR 30) PTT L 20.5(APR 30) Imaging: Reviewed. Telemetry: afib, rate controlled ECG: rate controlled afib Echo: EF ~30% Stress: none Cath: successful PCI to RCA with HANNAH x 2 Assessment: 1. CAD 2. ischemic cardiomyopathy 3. chronic systolic heart failure 4. afib Plan: -plavix and eliquis (no aspirin) -continue OMT for chf otherwise. -overnight ICU stay Extracted from: Title: Cardiac Catheterization Author: Severo Butterfield MD Date: 05/01/18 Report Cardiology Catheterization Report Attending: Severo Butterfield MDPhone: Service: Cardiology Code status: Full Code Reason [...] 1. 5 6. PCI to RCA with HANNAH x 2 7. Moderate Sedation time: 180 minutes 8. Catheter placement aorta 9. Abdominal aortography 10. catheter placement third order 11. Right lower extremity angiogram 12. REPULPING SUPERVISOR of right iliac 13. Temporary pacemaker insertion 14. temporary pacemaker removal Procedure Description: Patient was brought to the cardiac catheterization laboratory in a fasting state. Bilateral groins and wrists were prepped and draped in a sterile fashion. Following vascular access was obtained using the modified seldinger technique under ultrasound and fluroscoping guidance as required. 1. 8 upper sorbian sheath in L-WOOD MILLING MACHINE HAND 2. 7 Fr sheath in the right CFV A non balloon tipped temporary pacemaker was inserted into the the right CFV and advanced under fluroscopic guidance to the RV and positioned to pace the RV septum. Capture was confirmed. Pacemaker was set at 60 bpm backup rate for the remainder of the procedure and removed at the end of PCI. 3. R-WOOD MILLING MACHINE HAND arterial access was obtained us ing micropuncture [...] then pulled the sheath back and performed REPULPING SUPERVISOR of right iliac ostium with 7.0 x 80 mm balloon at 7 john. Baloon was removed and we were able to easily advance the 30 cm 14 Fr sheath past the ostium of the iliac. Once again a pigtail catheter was advanced into the LV over a 0.035" wire. 0.035" wire was exchanged for a 0.018" [place] Plus wire was inserted into the LV and Pigtail catheter was removed. Impella CP device was once again advandced over the wire into the LV under fluoroscopic guidance. Impella wire was removed and proper function and adequate LV support was confirmed. For PCI of the RCA, an 8Fr JR4 guide was used, which provided adequate support. Lesion was wired using a Fluential Prowater 0.014" wire, however we were unable to advance a Dispatcher Clerk microcatheter past the lesion. Prowater was then [...]
--- OUTSIDE RECORDS SUMMARY | 2019-08-24 16:54 | XMS REPORT | Summary of Care ---
Author Author [facility] Organization [facility] Address Unknown Phone Unavailable Encounter LYN Bess(NICKOLAS) [phone] Date(s): 05/01/18 - 05/03/18 [facility] [address] [place] [address]- Discharge Disposition: Home or Self Care Attending [...] (congestive Active heart failure)(Confirmed) Diabetes Active mellitus(Confirmed) Hypertension(Confirm Active ed) Hypothyroidism(Confi Active rmed) Venous (peripheral) Active insufficiency(Confir med) Allergies, Adverse Reactions, Alerts Substance Reaction Severity Status Adhesive Active Tape Active HYDROcodone Active Medications acetaminophen 650 mg, 2 tab, Route: PO, Drug form: TAB, Q6H, Dosing Weight 63.5, kg, PRN Pain 4-6/Temp > 100.4 F, Start date: 05/02/18 8:31:00 PHOTO OPTICS TECHNICIAN, Duration: 30 day, Stop date: 06/01/18 8:30:00 PHOTO OPTICS TECHNICIAN Notes: Do not exceed 4 gm/day. (Same as: Tylenol) Start Date: 05/02/18 Stop Date: 05/03/18 Status: Discontinued apixaban 5 mg oral tablet 5 mg = 1 tab, PO, Q12H, # 180 tab, 3 Refill(s) Start Date: 05/03/18 Status: Ordered aspirin 81 mg tablet, enteric coated 81 mg, 1 tab, Route: PO, Drug form: ECTAB, Daily, Dosing Weight 62.5, kg, Start date: 05/02/18 9:00:00 PHOTO OPTICS TECHNICIAN, Duration: 30 day, Stop date: 05/31/18 9:00:00 PHOTO OPTICS TECHNICIAN Notes: Do not crush or chew.(Same As: [...] Weight 62.5, kg, Start date: 05/01/18 21:00:00 PHOTO OPTICS TECHNICIAN, Duration: 30 day, Stop date: 05/30/18 21:00:00 PHOTO OPTICS TECHNICIAN Notes: (Same as: Lipitor) Start Date: 05/01/18 Stop Date: 05/03/18 Status: Discontinued atorvastatin 40 mg oral tablet 40 mg = 1 tab, PO, Bedtime, # 30 tab, 0 Refill(s) Start Date: 04/30/18 Status: Ordered clopidogrel 75 mg oral tablet 75 mg = 1 tab, PO, Daily, # 90 tab, 3 Refill(s) Start Date: 05/03/18 Stop Date: 04/28/19 Status: Ordered clopidogrel 75 mg oral tablet 75 mg = 1 tab, PO, Daily, # 30 tab, 0 Refill(s) Start Date: 04/30/18 Stop Date: 05/03/18 Status: Discontinued Eliquis 5 mg, 1 tab, Route: PO, Drug form: TAB, Q12H, Dosing Weight 62.5, kg, Start date : 05/01/18 21:00:00 PHOTO OPTICS TECHNICIAN, Duration: 30 day, Stop date: 05/31/18 9:00:00 PHOTO OPTICS TECHNICIAN Notes: Same as: Eliquis Start Date: 05/01/18 Stop Date: 05/03/18 Status: Discontinued esomeprazole 40 mg oral delayed release capsule 40 mg = 1 cap, PO, Daily, # 30 cap, 0 Refill(s) Start Date: 04/30/18 Status: Ordered Fish Oil 500 mg oral capsule 1,000 mg = 2 cap, PO, BID, 0 Refill(s) Start Date: 04/30/18 Status: Ordered folic acid 0.8 mg, PO, Daily, 0 Refill(s) Start Date: 05/01/18 Status: Ordered folic acid 0.8 mg, 2 tab, Route: PO, Drug form: TAB, Daily, Dosing Weight 62.5, kg, Start d ate: 05/02/18 9:00:00 PHOTO OPTICS TECHNICIAN, Duration: 30 day, Stop date: 05/31/18 9:00:00 PHOTO OPTICS TECHNICIAN Start Date: 05/02/18 Stop Date: 05/03/18 Status: Discontinued gabapentin 300 mg, 1 cap, Route: PO, Drug form: CAP, QAM, Dosing Weight 63.5, kg, Priority: NOW, Start date: 05/03/18 12:10:00 PHOTO OPTICS TECHNICIAN, Duration: 30 day, Stop date: 06/02/18 9 :00:00 PHOTO OPTICS TECHNICIAN Notes: (Same as: Neurontin) Start Date: 05/03/18 Stop Date: 05/03/18 Status: Discontinued gabapentin 600 mg, 2 cap, Route: PO, Drug form: CAP, QPM, Dosing Weight 63.5, kg, Start lida e: 05/03/18 17:00:00 PHOTO OPTICS TECHNICIAN, Duration: 30 day, Stop date: 06/01/18 17:00:00 PHOTO OPTICS TECHNICIAN Notes: (Same as: Neurontin) Start Date: 05/03/18 Stop Date: 05/03/18 Status: Discontinued levothyroxine 50 microgram, 1 tab, Route: PO, Drug form: TAB, Q630AM, Dosing Weight 62.5, kg, Start date: 05/02/18 6:30:00 PHOTO OPTICS TECHNICIAN, Duration: 30 day, Stop date: 05/31/18 6:30:00 PHOTO OPTICS TECHNICIAN Notes: Take 1 hour before or 2 hours after meal; Enteral feeds may interefere wi th the absorption of this medication.(Same as:Levothroid, Synthroid) Start Date: 05/02/18 Stop Date: 05/03/18 Status: Discontinued levothyroxine 50 mcg (0.05 mg) oral tablet 50 microgram = 1 tab, PO, Daily, # 30 tab, 0 Refill(s) Start Date: 04/30/18 Status: Ordered lisinopril 5 mg, 1 tab, Route: PO, Drug form: TAB, Daily, Dosing Weight 62.5, kg, Start lida e: 05/02/18 9:00:00 PHOTO OPTICS TECHNICIAN, Duration: 30 day, Stop date: 05/31/18 9:00:00 PHOTO OPTICS TECHNICIAN Notes: (Same as: Prinivil, Zestril) Start Date: 05/02/18 Stop Date: 05/03/18 Status: Discontinued lisinopril 5 mg oral tablet 5 mg = 1 tab, PO, Daily, # 30 tab, 0 Refill(s) Start Date: 04/30/18 Status: Ordered metoprolol 100 mg oral tablet, extended release 100 mg = 1 tab, PO, BID, 0 Refill(s) Start Date: 05/01/18 Stop Date: 05/03/18 Status: Discontinued metoprolol 100 mg oral tablet, extended release 100 mg = 1 tab, PO, BID, # 180 tab, 3 Refill(s) Start Date: 05/03/18 Stop Date: 04/28/19 Status: Ordered metoprolol extended release 100 mg, 1 tab, Route: PO, Drug form: ERTAB, Daily, Start date: 05/02/18 9:00:00 PHOTO OPTICS TECHNICIAN, Duration: 30 day, Stop date: 05/31/18 9:00:00 PHOTO OPTICS TECHNICIAN Notes: (Same as: Toprol XL) May split tab, but do not crush. Start Date: 05/02/18 Stop Date: 05/03/18 Status: Discontinued nitroglycerin SL Tab 0.4 mg, 1 tab, Route: SL, Drug form: TAB, Q5Min, Dosing Weight 62.5, kg, PRN Megan st Pain, Start date: 05/01/18 11:32:00 PHOTO OPTICS TECHNICIAN, Duration: 3 doses or times, Stop lida e: Limited # of times Notes: (Same as:Nitroquick, Nitrostat)"Do Not Crush" Sublingual tablet Start Date: 05/01/18 Stop Date: 05/03/18 Status: Discontinued pantoprazole 40 mg, 1 tab, Route: PO, Drug form: ECTAB, Before Dinner, Dosing Weight 62.5, kg , Start date: 05/01/18 16:30:00 PHOTO OPTICS TECHNICIAN, Duration: 30 day, Stop date: 05/30/18 16:30 :00 PHOTO OPTICS TECHNICIAN Notes: Tablet should not be chewed or crushed.(Same as: Protonix) Start Date: 05/01/18 Stop Date: 05/03/18 Status: Discontinued Plavix 75 mg, 1 tab, Route: PO, Drug form: TAB, Daily, Dosing Weight 62.5, kg, Start da te: 05/02/18 9:00:00 PHOTO OPTICS TECHNICIAN, Duration: 30 day, Stop date: 05/31/18 9:00:00 PHOTO OPTICS TECHNICIAN Notes: (Same As: Plavix) Start Date: 05/02/18 Stop Date: 05/03/18 Status: Discontinued potassium chloride 40 mEq, 2 tab, Route: PO, Drug form: ERTAB, ONCE, Dosing Weight 63.5, kg, Start date: 05/03/18 7:51:00 PHOTO OPTICS TECHNICIAN, Stop date: 05/03/18 7:51:00 PHOTO OPTICS TECHNICIAN Notes: (Same as: K-Dur 20)"Do Not Crush" Give with food and full glass of water For patients unable to swallow tablet, dissolve in one half glass of water. Allo w about 2 minutes for the tablets to disintegrate. Stir before giving to prepare slurry and administer.Please exclude Patients with feeding tube less than 14 [place] (Dobhoff, J-tube etc) and pediatric and patients. Start Date: 05/03/18 Stop Date: 05/03/18 Status: Completed potassium chloride 10 mEq, 100 mL, Route: IVPB, Drug form: INJ, Q1H, Dosing Weight 63.5, kg, Total Dose = 40 meq, Start date: 05/03/18 8:00:00 PHOTO OPTICS TECHNICIAN, Duration: 4 doses or times, Sto p date: 05/03/18 11:00:00 PHOTO OPTICS TECHNICIAN, Peripheral Line Notes: Infuse at a rate of 10 mEq/hr.(Same as: KCL) Start Date: 05/03/18 Stop Date: 05/03/18 Status: Completed Protonix 40 mg, 1 tab, Route: PO, Drug form: ECTAB, Before Breakfast, Dosing Weight 63.5, kg, Priority: NOW, Start date: 05/03/18 12:10:00 PHOTO OPTICS TECHNICIAN, Duration: 30 day, Stop da te: 06/02/18 7:30:00 PHOTO OPTICS TECHNICIAN Notes: Tablet should not be chewed or crushed.(Same as: Protonix) Start Date: 05/03/18 Stop Date: 05/03/18 Status: Discontinued temazepam 15 mg, 1 cap, Route: PO, Drug form: CAP, Bedtime, Dosing Weight 63.5, kg, PRN Sl eep, Start date: 05/02/18 19:37:00 PHOTO OPTICS TECHNICIAN, Duration: 30 day, Stop date: 06/01/18 19 :36:00 PHOTO OPTICS TECHNICIAN Notes: (Same As: Restoril) Start Date: 05/02/18 Stop Date: 05/03/18 Status: Discontinued Results ELECTROLYTES 1 2 3 Most recent to oldest [Reference Range]: 143 mEq/L (05/03/18 4:59 AM) 139 mEq/L (04/30/18 9:41 AM) Sodium Lvl [135-145 mEq/L] 3.6 mEq/L (05/03/18 5:46 PM) 2.9 mEq/L 1 *CRIT* (05/03/18 4:59 AM) 3.5 mEq/L (04/30/18 9:41 AM) Potassium Lvl [3.5-5.1 mEq/L] 110 mEq/L *HI* (05/03/18 4:59 AM) 105 mEq/L (04/30/18 9:41 AM) Chloride Lvl [95-109 mEq/L] 25 mEq/L (05/03/18 4:59 AM) 24 mEq/L (04/30/18 9:41 AM) CO2 [24-32 mEq/L] 10.9 mEq/L (05/03/18 4:59 AM) 13.5 mEq/L (04/30/18 9:41 AM) AGAP [10.0-20.0 mEq/L] 1Result Comment: Critical Result(s) called to dalila montes de oca at 05/03/2018 05:48 byjw. Read back OK. CHEM PANEL 1 2 3 Most recent to oldest [Reference Range]: 0.68 mg/dL (05/03/18 4:59 AM) 1.17 mg/dL (04/30/18 9:41 AM) Creatinine Lvl [0.50-1.40 mg/dL] 85 mL/min/1.73m2 1 *NA* (05/03/18 4:59 AM) 45 mL/min/1.73m2 2 *NA* (04/30/18 9:41 AM) eGFR 15 mg/dL (05/03/18 4:59 AM) 47 mg/dL *HI* (04/30/18 9:41 AM) BUN [7-22 mg/dL] 40 *HI* (04/30/18 9:41 AM) B/C Ratio [6-25] 121 mg/dL *HI* (05/03/18 4:59 AM) 138 mg/dL *HI* (04/30/18 9:41 AM) Glucose Lvl [70-99 mg/dL] 7.5 g/dL (04/30/18 9:41 AM) Total Protein [6.4-8.4 g/dL] 3.2 g/dL *LOW* (04/30/18 9:41 AM) Albumin Lvl [3.5-5.0 g/dL] 4.3 g/dL *HI* (04/30/18 9:41 AM) Globulin [2.7-4.2 g/dL] 0.7 (04/30/18 9:41 AM) A/G Ratio [0.7-1.6] 8.7 mg/dL (05/03/18 4:59 AM) 8.8 mg/dL (04/30/18 9:41 AM) Calcium Lvl [8.5-10.5 mg/dL] 19 unit/L (04/30/18 9:41 AM) ALT [0-65 unit/L] 16 unit/L (04/30/18 9:41 AM) AST [0-37 unit/L] 71 unit/L (04/30/18 9:41 AM) Alk Phos [39-136 unit/L] 0.3 mg/dL (04/30/18 9:41 AM) Bili Total [0.2-1.3 mg/dL] 1Result Comment: The eGFR is calculated using [...] be mul tiplied by the estimated BMI. HEMATOLOGY 1 2 3 Most recent to oldest [Reference Range]: 7.2 K/CMM (05/03/18 4:59 AM) 8.9 K/CMM (04/30/18 9:41 AM) WBC [3.7-10.4 K/CMM] 3.22 M/CMM *LOW* (05/03/18 4:59 AM) 4.29 M/CMM (04/30/18 9:41 AM) RBC [4.20-5.40 M/CMM] 9.5 g/dL *LOW* (05/03/18 4:59 AM) 12.7 g/dL (04/30/18 9:41 AM) Hgb [12.0-16.0 g/dL] 28.5 % *LOW* (05/03/18 4:59 AM) 38.1 % (04/30/18 9:41 AM) Hct [36.0-48.0 %] 88.3 fL (05/03/18 4:59 AM) 88.8 fL (04/30/18 9:41 AM) MCV [80.0-98.0 fL] 29.4 pg (05/03/18 4:59 AM) 29.5 pg (04/30/18 9:41 AM) MCH [27.0-31.0 pg] 33.3 g/dL (05/03/18 4:59 AM) 33.2 g/dL (04/30/18 9:41 AM) MCHC [32.0-36.0 g/dL] 16.2 % *HI* (05/03/18 4:59 AM) 16.6 % *HI* (04/30/18 9:41 AM) RDW [11.5-14.5 %] 7.6 fL (05/03/18 4:59 AM) 8.0 fL (04/30/18 9:41 AM) MPV [7.4-10.4 fL] 316 K/CMM (05/03/18 4:59 AM) 383 K/CMM (04/30/18 9:41 AM) Platelet [133-450 K/CMM] 59.9 % (04/30/18 9:41 AM) Segs [45.0-75.0 %] 27.2 % (04/30/18 9:41 AM) Lymphocytes [20.0-40.0 %] 7.9 % (04/30/18 9:41 AM) Monocytes [2.0-12.0 %] 4.0 % (04/30/18 9:41 AM) Eosinophils [0.0-4.0 %] 1.0 % (04/30/18 9:41 AM) Basophils [0.0-1.0 %] 5.3 K/CMM (04/30/18 9:41 AM) Neutrophils # [1.5-8.1 K/CMM] 2.4 K/CMM (04/30/18 9:41 AM) Lymphocytes # [1.0-5.5 K/CMM] 0.7 K/CMM (04/30/18 9:41 AM) Monocytes # [0.0-0.8 K/CMM] 0.4 K/CMM (04/30/18 9:41 AM) Eosinophils # [0.0-0.5 K/CMM] 0.1 K/CMM (04/30/18 9:41 AM) Basophils # [0.0-0.2 K/CMM] 12.8 seconds (04/30/18 9:41 AM) PT [12.0-14.7 seconds] 0.98 (04/30/18 9:41 AM) INR [0.85-1.17] 20.5 seconds *LOW* (04/30/18 9:41 AM) PTT [22.9-35.8 seconds] Immunizations No data available for this section Procedures Procedure Date Related Diagnosis Body Site Status Cardiac catheterisation, left heart Completed Social History Social History Type Response Alcohol Past Smoking Status Former smoker; Exposure to Tobacco Smoke see note; Cigarette Smoking Last 365 Days No; Reg Smoking Cessation Coun seling No; Other Tobacco Frequency sometimes at home- family smokes outdoo rs; entered on: 05/01/18 Assessment and Plan Extracted from: Title: Cardiology [...] Days? No. Cessation Counseling Provided? No. Exam: VitalsTmp(F)[id number] 05/01 15:30----7198/54--100 2.0L/m 05/01 15:15----53307/55--99 2.0L/m 05/01 15:00----71843/59--96 2.0L/m 05/01 14:45----02178/57--92--- 05/01 14:40----6798/55--92--- 24 Hr Tmax: 98.2F (36.78c) [...] order 11. Right lower extremity angiogram 12. HOISTING MACHINE OPERATOR of right iliac 13. Temporary pacemaker insertion 14. temporary pacemaker removal Procedure Description: Patient was brought to the cardiac catheterization laboratory in a fasting state. Bilateral groins and wrists were prepped and draped in a sterile fashion. Following vascular access was obtained using the modified seldinger technique under ultrasound and fluroscoping guidance as required. 1. 8 estonian sheath in L-SENIOR SALES COMPENSATION ANALYST 2. 7 Fr sheath in the right CFV A non balloon tipped temporary pacemaker was inserted into the the right CFV and advanced under fluroscopic guidance to the RV and positioned to pace the RV septum. Capture was confirmed. Pacemaker was set at 60 bpm backup rate for the remainder of the procedure and removed at the end of PCI. 3. R-SENIOR SALES COMPENSATION ANALYST arterial access was obtained us ing micropuncture [...] then pulled the sheath back and performed HOISTING MACHINE OPERATOR of right iliac ostium with 7.0 x 80 mm balloon at 7 john. Baloon was removed and we were able to easily advance the 30 cm 14 Fr sheath past the ostium of the iliac. Once again a pigtail catheter was advanced into the LV over a 0.035" wire. 0.035" wire was exchanged for a 0.018" [place] Plus wire was inserted into the LV and Pigtail catheter was removed. Impella CP device was once again advandced over the wire into the LV under fluoroscopic guidance. Impella wire was removed and proper function and adequate LV support was confirmed. For PCI of the RCA, an 8Fr JR4 guide was used, which provided adequate support. Lesion was wired using a [employer] Prowater 0.014" wire, however we were unable to advance a Cloth Cutting Machine Operator microcatheter past the lesion. Prowater was then [...]
--- OUTSIDE RECORDS SUMMARY | 2019-08-24 16:54 | XMS REPORT | Summary of Care ---
Author Author [facility] Organization [facility] Address Unknown Phone Unavailable Encounter LYN Bess(NICKOLAS) [id number] Date(s): 08/18/18 - 08/19/18 [facility] [address] [place] [address]- Discharge Disposition: Home or Self Care Attending Physician: Doug Alonso MD Referring Physician: Doug Alonso MD Vital Signs 1 2 3 Most recent to oldest [Reference Range]: 157.48 cm (08/15/18 2:20 PM) Height 98.3 DegF (08/19/18 7:25 AM) 98.0 DegF (08/19/18 3:47 AM) 97.9 DegF (08/18/18 11:10 PM) Temperature Oral [96.4-99.1 DegF] 144/82 mmHg *HI* (08/19/18 7:25 AM) 145/81 mmHg *HI* (08/19/18 3:47 AM) 145/86 mmHg *HI* (08/18/18 11:10 PM) Blood Pressure [90-140/60-90 mmHg] 18 BRMIN (08/19/18 7:25 AM) 17 BRMIN (08/19/18 3:47 AM) 17 BRMIN (08/18/18 11:10 PM) Respiratory Rate [14-20 BRMIN] 79 bpm (08/19/18 7:25 AM) 80 bpm (08/19/18 3:47 AM) 80 bpm (08/18/18 11:10 PM) Peripheral Pulse Rate [60-100 bpm] 59.091 kg (08/15/18 2:20 PM) Weight 23.83 m2 (08/15/18 2:20 PM) Body Mass Index Problem List Condition Effective Dates Status Health Status Informan t Atrial Active fibrillation(Confirm ed) CHF (congestive Active heart failure)(Confirmed) Diabetes Active mellitus(Confirmed) SOB (shortness of Active breath) on exertion(Confirmed) GERD Active (gastroesophageal reflux disease)(Confirmed) Hypertension(Confirm Active ed) Hypothyroidism(Confi Active rmed) Venous (peripheral) Active insufficiency(Confir med) Allergies, Adverse Reactions, Alerts Substance Reaction Severity Status Adhesive Active Tape Active HYDROcodone Active Medications RN please bring home med MYRBETRIQ to Pharmacy for label RN please bring home med MYRBETRIQ to Pharmacy for label, 1, Drug form: MISC, Route: MISC, TID, 08/18/18 15:00:00 CDT, Duration: 30 day, Stop date: 09/17/18 9 :00:00 CDT Start Date: 08/18/18 Stop Date: 08/19/18 Status: Discontinued *RN please update h/w/a in ad hoc* *RN please update h/w/a in ad hoc*, reminder, Drug form: MISC, Route: MISC, Q30M in, 08/18/18 14:30:00 CDT, Duration: 30 day, Stop date: 09/17/18 14:00:00 CDT Start Date: 08/18/18 Stop Date: 08/18/18 Status: Deleted acetaminophen 650 mg, 2 tab, Route: PO, Drug form: TAB, Q4H, Dosing Weight 59.091, kg, PRN Nathanael n Score 7-10, Start date: 08/18/18 10:12:00 CDT, Duration: 30 day, Stop date: 10:11:00 CDT Notes: Do not exceed 4 gm/day. (Same as: Tylenol) Start Date: 08/18/18 Stop Date: 08/19/18 Status: Discontinued AMIODarone 200 mg oral tablet 200 mg = 1 tab, PO, Daily, 0 Refill(s) Start Date: 08/15/18 Status: Suspended atorvastatin 40 mg, 1 tab, Route: PO, Drug form: TAB, Bedtime, Dosing Weight 59.091, kg, Star t date: 08/18/18 21:00:00 CDT, Duration: 30 day, Stop date: 09/16/18 21:00:00 CD T Notes: (Same as: Lipitor) Start Date: 08/18/18 Stop Date: 08/19/18 Status: Discontinued clopidogrel 75 mg, 1 tab, Route: PO, Drug form: TAB, Daily, Dosing Weight 59.091, kg, Start date: 08/19/18 9:00:00 CDT, Duration: 30 day, Stop date: 09/17/18 9:00:00 CDT Notes: (Same As: Plavix) Start Date: 08/19/18 Stop Date: 08/19/18 Status: Discontinued Digox 125 mcg (0.125 mg) oral tablet 125 microgram = 1 tab, PO, Daily, 0 Refill(s) Start Date: 08/15/18 Status: Suspended digoxin 125 microgram, 1 tab, Route: PO, Drug form: TAB, Daily, Dosing Weight 59.091, kg , Start date: 08/19/18 9:00:00 CDT, Duration: 30 day, Stop date: 09/17/18 9:00:0 0 CDT Notes: Take on an Empty Stomach (Same as: Lanoxin) Start Date: 08/19/18 Stop Date: 08/19/18 Status: Discontinued ferrous sulfate 325 mg, 1 tab, Route: PO, Drug form: ECTAB, TID-Meals, Dosing Weight 59.091, kg, Start date: 08/18/18 14:34:00 CDT, Duration: 30 day, Stop date: 09/17/18 12:00: 00 CDT Notes: Give with food. "Do Not Crush" Start Date: 08/18/18 Stop Date: 08/19/18 Status: Discontinued folic acid 0.4 mg, 1 tab, Route: PO, Drug form: TAB, Daily, Dosing Weight 59.091, kg, Start date: 08/19/18 9:00:00 CDT, Duration: 30 day, Stop date: 09/17/18 9:00:00 CDT Start Date: 08/19/18 Stop Date: 08/19/18 Status: Discontinued folic acid 0.4 mg oral tablet 0.4 mg = 1 tab, PO, Daily, # 100 tab, 0 Refill(s) Start Date: 08/15/18 Status: Suspended gabapentin 300 mg oral capsule 300 mg = 1 cap, PO, TID, 0 Refill(s) Start Date: 08/15/18 Status: Suspended gabapentin 300 mg oral capsule 300 mg, 1 cap, Route: PO, Drug form: CAP, TID, Dosing Weight 59.091, kg, Start d ate: 08/18/18 15:00:00 CDT, Duration: 30 day, Stop date: 09/17/18 9:00:00 CDT Notes: (Same as: Neurontin) Start Date: 08/18/18 Stop Date: 08/19/18 Status: Discontinued iron sulfate (ferrous sulfate) 325 mg oral tablet 325 mg = 1 tab, PO, TID, 0 Refill(s) Start Date: 08/15/18 Status: Suspended lisinopril 40 mg, 2 tab, Route: PO, Drug form: TAB, Daily, Dosing Weight 59.091, kg, Start date: 08/19/18 9:00:00 CDT, Duration: 30 day, Stop date: 09/17/18 9:00:00 CDT Notes: (Same as: Prinivil, Zestril) Start Date: 08/19/18 Stop Date: 08/19/18 Status: Discontinued lisinopril 40 mg oral tablet 40 mg = 1 tab, PO, Daily, 0 Refill(s) Start Date: 08/15/18 Status: Suspended metoprolol extended release 150 mg, 3 tab, Route: PO, Drug form: ERTAB, BID, Start date: 08/18/18 21:00:00 C DT, Duration: 30 day, Stop date: 09/17/18 9:00:00 CDT Notes: (Same as: Toprol XL) May split tab, but do not crush. Start Date: 08/18/18 Stop Date: 08/19/18 Status: Discontinued metoprolol succinate 50 mg oral capsule, extended release 150 mg = 3 cap, PO, BID, 0 Refill(s) Start Date: 08/18/18 Status: Suspended minocycline 100 mg oral capsule 100 mg = 1 cap, PO, Q12H, X 7 day, # 14 cap, 0 Refill(s), given to patient Start Date: 08/19/18 Stop Date: 08/26/18 Status: Suspended morphine Sulfate 2 mg, 1 mL, Route: IVP, Drug form: SOLN, Q4H, Dosing Weight 59.091, kg, PRN Pain Score 4-6, Start date: 08/18/18 10:12:00 CDT, Duration: 30 day, Stop date: 08/30 12/18 10:11:00 CDT Start Date: 08/18/18 Stop Date: 08/19/18 Status: Discontinued multivitamin Daily, 0 Refill(s) Start Date: 08/15/18 Stop Date: 08/18/18 Status: Completed Myrbetriq 50 mg oral tablet, extended release 50 mg = 1 tab, PO, Daily, # 30 tab, 0 Refill(s) Start Date: 08/15/18 Status: Suspended Myrbetriq 50 mg oral tablet, extended release 50 mg, 1 tab, Route: PO, Drug form: ERTAB, Daily, Dosing Weight 59.091, kg, Star t date: 08/19/18 9:00:00 CDT, Duration: 30 day, Stop date: 09/17/18 9:00:00 CDT Start Date: 08/19/18 Stop Date: 08/19/18 Status: Discontinued Ocuvite PO, Daily, 0 Refill(s) Start Date: 08/15/18 Status: Suspended pantoprazole 40 mg, 1 tab, Route: PO, Drug form: ECTAB, Before Dinner, Dosing Weight 59.091, kg, Start date: 08/18/18 16:30:00 CDT, Duration: 30 day, Stop date: 09/16/18 16: 30:00 CDT Notes: Tablet should not be chewed or crushed.(Same as: Protonix) Start Date: 08/18/18 Stop Date: 08/19/18 Status: Discontinued pantoprazole 40 mg oral enteric coated tablet 40 mg = 1 tab, PO, Daily, 0 Refill(s) Start Date: 08/15/18 Status: Suspended spironolactone 25 mg, 1 tab, Route: PO, Drug form: TAB, BID, Dosing Weight 59.091, kg, Start da te: 08/18/18 17:00:00 CDT, Duration: 30 day, Stop date: 09/17/18 9:00:00 CDT Notes: (Same As: Aldactone) Start Date: 08/18/18 Stop Date: 08/19/18 Status: Discontinued spironolactone 25 mg oral tablet 25 mg = 1 tab, PO, BID, # 60 tab, 0 Refill(s) Start Date: 08/15/18 Stop Date: 09/14/18 Status: Suspended tramadol 50 mg oral tablet 50 mg = 1 tab, PO, Q8H, PRN Pain Score 1-5, # 20 tab, 0 Refill(s), given to marisa ent Start Date: 08/19/18 Stop Date: 08/28/18 Status: Suspended trazodone 50 mg oral tablet 50 mg = 1 tab, PO, TID, 0 Refill(s) Start Date: 08/15/18 Status: Suspended trazodone 50 mg oral tablet 50 mg, 1 tab, Route: PO, Drug form: TAB, TID, Dosing Weight 59.091, kg, Start da te: 08/18/18 13:00:00 CDT, Duration: 30 day, Stop date: 09/17/18 9:00:00 CDT Notes: (Same As: Amanda) Start Date: 08/18/18 Stop Date: 08/19/18 Status: Discontinued vancomycin 1,000 mg, Route: IVPB, ONCE, Dosing Weight 59.091, kg, Time Critical Medication, Start date: 08/18/18 10:12:00 CDT, Stop date: 08/18/18 10:12:00 CDT, ABX Indica tion: Surgical Prophylaxis Start Date: 08/18/18 Stop Date: 08/18/18 Status: Deleted vancomycin + Sodium Chloride 0.9% IV 250 mL 1,000 mg, Route: IVPB, ONCE, Start date: 08/18/18 22:15:00 CDT, Stop date: 08/18 22:15:00 CDT, ABX Indication: Surgical Prophylaxis Notes: TIME CRITICAL MEDICATION(Same As: Vancocin)Infusion rate< 1000 mg: infuse over 1 [id number] - 1500 mg: infuse over 1.5 [id number] - 2000 mg: infuse over 2 hours> 2001 mg: infuse over 2.5 hoursFor adult patients only: Round to nearest 250 mg per Medical Staff approval MEDICATION WASTE Product Size: 1000 mgProduct Wasted: ___ mg Start Date: 08/18/18 Stop Date: 08/19/18 Status: Completed Results Most recent to 1 oldest [Reference Range]: Neutrophils # 4.2 K/CMM [1.5-8.1 K/CMM] (08/15/18 2:30 PM) Lymphocytes # 1.7 K/CMM [1.0-5.5 K/CMM] (08/15/18 2:30 PM) Monocytes # [0.0-0.8 0.5 K/CMM K/CMM] (08/15/18 2:30 PM) Eosinophils # 0.1 K/CMM [0.0-0.5 K/CMM] (08/15/18 2:30 PM) Basophils # [0.0-0.2 0.1 K/CMM K/CMM] (08/15/18 2:30 PM) eGFR 64 mL/min/1.73m2 1 *NA* (08/15/18 2:30 PM) AGAP [10.0-20.0 11.9 mEq/L mEq/L] (08/15/18 2:30 PM) Basophils [0.0-1.0 0.9 % %] (08/15/18 2:30 PM) BUN [7-22 mg/dL] 17 mg/dL (08/15/18 2:30 PM) Calcium Lvl 9.1 mg/dL [8.5-10.5 mg/dL] (08/15/18 2:30 PM) Chloride Lvl [95-109 109 mEq/L mEq/L] (08/15/18 2:30 PM) CO2 [24-32 mEq/L] 24 mEq/L (08/15/18 2:30 PM) Creatinine Lvl 0.87 mg/dL [0.50-1.40 mg/dL] (08/15/18 2:30 PM) Eosinophils [0.0-4.0 1.6 % %] (08/15/18 2:30 PM) Glucose Lvl [70-99 111 mg/dL mg/dL] *HI* (08/15/18 2:30 PM) Hct [36.0-48.0 %] 47.7 % (08/15/18 2:30 PM) Hgb [12.0-16.0 g/dL] 15.4 g/dL (08/15/18 2:30 PM) INR [0.85-1.17] 1.52 *HI* (08/15/18 2:30 PM) Potassium Lvl 4.9 mEq/L [3.5-5.1 mEq/L] (08/15/18 2:30 PM) Lymphocytes 26.4 % [20.0-40.0 %] (08/15/18 2:30 PM) MCH [27.0-31.0 pg] 30.6 pg (08/15/18 2:30 PM) MCHC [32.0-36.0 32.3 g/dL g/dL] (08/15/18 2:30 PM) MCV [80.0-98.0 fL] 94.9 fL (08/15/18 2:30 PM) Monocytes [2.0-12.0 7.2 % %] (08/15/18 2:30 PM) MPV [7.4-10.4 fL] 7.9 fL (08/15/18 2:30 PM) Sodium Lvl [135-145 140 mEq/L mEq/L] (08/15/18 2:30 PM) Platelet [133-450 284 K/CMM K/CMM] (08/15/18 2:30 PM) Segs [45.0-75.0 %] 63.9 % (08/15/18 2:30 PM) PT [12.0-14.7 18.0 seconds seconds] *HI* (08/15/18 2:30 PM) PTT [22.9-35.8 29.8 seconds seconds] (08/15/18 2:30 PM) RBC [4.20-5.40 5.02 M/CMM M/CMM] (08/15/18 2:30 PM) RDW [11.5-14.5 %] 16.1 % *HI* (08/15/18 2:30 PM) WBC [3.7-10.4 K/CMM] 6.6 K/CMM (08/15/18 2:30 PM) 1Result Comment: The eGFR is calculated using [...] be mul tiplied by the estimated BMI. Immunizations No data available for this section [...] Completed Social History Social History Type Response Substance Abuse Use: None. Alcohol Past Smoking Status Former smoker; Exposure to Tobacco Smoke None; Exposure to Tobacco Smoke see note; Cigarette Smoking Last 365 Da ys No; Reg Smoking Cessation Counseling No; Other Tobacco Frequency sometimes at home- family smokes outdoors; entered on: 08/20/18 Assessment and Plan No data available for this section
--- OUTSIDE RECORDS SUMMARY | 2019-08-24 16:54 | XMS REPORT | Summary of Care ---
Author Author [facility] Organization [facility] Address Unknown Phone Unavailable Encounter LYN Bess(NICKOLAS) [id number] Date(s): 08/20/18 - 08/24/18 [facility] [address] [place] [address]- Discharge Disposition: Home or Self Care Attending Physician: Starr Castillo MD Admitting Physician: Starr Castillo MD Vital Signs 1 2 3 Most recent to oldest [Reference Range]: 162.56 cm (08/20/18 8:57 AM) Height 97.9 DegF (08/24/18 3:10 PM) 97.6 DegF (08/24/18 11:02 AM) 98.0 DegF (08/24/18 7:22 AM) Temperature Oral [96.4-99.1 DegF] 147/61 mmHg *HI* (08/24/18 3:10 PM) 111/69 mmHg (08/24/18 11:02 AM) 161/80 mmHg *HI* (08/24/18 7:22 AM) Blood Pressure [90-140/60-90 mmHg] 16 BRMIN (08/24/18 4:20 AM) 16 BRMIN (08/23/18 11:40 PM) 16 BRMIN (08/23/18 8:19 PM) Respiratory Rate [14-20 BRMIN] 78 bpm (08/24/18 3:10 PM) 77 bpm (08/24/18 11:02 AM) 79 bpm (08/24/18 7:22 AM) Peripheral Pulse Rate [60-100 bpm] 59.091 kg (08/20/18 8:57 AM) Weight 22.36 m2 (08/20/18 8:57 AM) Body Mass Index Problem List Condition [...] Dosing Weight 59.091, kg, PRN Nathanael n 1-3/Temp > 100.4 F, Start date: 08/20/18 15:36:00 CDT, Duration: 30 day, Stop date: 09/19/18 15:35:00 CDT Notes: Do not exceed 4 gm/day. (Same as: Tylenol) Start Date: 08/20/18 Stop Date: 08/24/18 Status: Discontinued AMIODarone 200 mg, 1 tab, Route: PO, Drug form: TAB, Daily, Dosing Weight 59.091, kg, Start date: 08/21/18 9:00:00 CDT, Duration: 30 day, Stop date: 09/19/18 9:00:00 CDT Notes: (Same as: Cordarone) Start Date: 08/21/18 Stop Date: 08/21/18 Status: Discontinued apixaban 2.5 mg oral tablet 2.5 mg = 1 tab, PO, Q12H, # 60 tab, 0 Refill(s), Pharmacy: [facility] [id number] Start Date: 08/24/18 Status: Ordered aspirin 324 mg, 4 tab, Route: PO, Drug form: CHEWTAB, Daily, Dosing Weight 59.091, kg, S tart date: 08/21/18 12:30:00 CDT, Duration: 30 day, Stop date: 09/20/18 8:00:00 CDT Notes: Take with food. Start Date: 08/21/18 Stop Date: 08/22/18 Status: Discontinued aspirin 324 mg, Route: CHEW, Drug form: CHEWTAB, ONCE, Dosing Weight 59.091, kg, Priorit y: STAT, Start date: 08/20/18 10:47:00 CDT, Stop date: 08/20/18 10:47:00 CDT Start Date: 08/20/18 Stop Date: 08/20/18 Status: Completed atorvastatin 40 mg, 1 tab, Route: PO, Drug form: TAB, Bedtime, Dosing Weight 59.091, kg, Star t date: 08/20/18 21:00:00 CDT, Duration: 30 day, Stop date: 09/18/18 21:00:00 CD T Notes: (Same as: Lipitor) Start Date: 08/20/18 Stop Date: 08/24/18 Status: Discontinued bumetanide 1 mg oral tablet 0.5 mg = 0.5 tab, PO, BID, # 60 tab, 0 Refill(s), Pharmacy: [facility] [id number] Start Date: 08/24/18 Status: Ordered Bumex 1 mg, 4 mL, Route: IVP, Drug form: INJ, ONCE, Dosing Weight 59.091, kg, Start da te: 08/22/18 21:46:00 CDT, Stop date: 08/22/18 21:46:00 CDT Notes: (Same As: Bumex) Start Date: 08/22/18 Stop Date: 08/22/18 Status: Completed Bumex 0.5 mg, 0.5 tab, Route: PO, Drug form: TAB, BID, Dosing Weight 59.091, kg, Start date: 08/23/18 9:00:00 CDT, Duration: 30 day, Stop date: 09/21/18 17:00:00 CDT Notes: (Same As: Bumex) Start Date: 08/23/18 Stop Date: 08/24/18 Status: Discontinued cloNIDine 0.1 mg, 1 tab, Route: PO, Drug form: TAB, Q8H, Dosing Weight 59.091, kg, PRN Hyp ertension, Start date: 08/23/18 14:42:00 CDT, Duration: 30 day, Stop date: 09/22 14:41:00 CDT Notes: (Same As: Catapres) Start Date: 08/23/18 Stop Date: 08/24/18 Status: Discontinued clopidogrel 75 mg, 1 tab, Route: PO, Drug form: TAB, Daily, Dosing Weight 59.091, kg, Start date: 08/21/18 9:00:00 CDT, Duration: 30 day, Stop date: 09/19/18 9:00:00 CDT Notes: (Same As: Plavix) Start Date: 08/21/18 Stop Date: 08/24/18 Status: Discontinued Dextrose 50% Syringe 12.5 gm, 25 mL, Route: IVP, Drug Form: INJ, Dosing Weight 59.091, kg, PRN, PRN B lood Glucose Results, Start date: 08/20/18 15:36:00 CDT, Duration: 30 day, Stop date: 09/19/18 15:35:00 CDT Start Date: 08/20/18 Stop Date: 08/24/18 Status: Discontinued Dextrose 50% Syringe 25 gm, 50 mL, Route: IVP, Drug Form: INJ, Dosing Weight 59.091, kg, PRN, PRN Blo od Glucose Results, Start date: 08/20/18 15:36:00 CDT, Duration: 30 day, Stop da te: 09/19/18 15:35:00 CDT Start Date: 08/20/18 Stop Date: 08/24/18 Status: Discontinued Dextrose 50% Syringe 25 gm, 50 mL, Route: IVP, Drug Form: INJ, Dosing Weight 59.091, kg, PRN, PRN Blo od Glucose Results, Start date: 08/22/18 17:03:00 CDT, Duration: 30 day, Stop da te: 09/21/18 17:02:00 CDT Start Date: 08/22/18 Stop Date: 08/24/18 Status: Discontinued Dextrose 50% Syringe 12.5 gm, 25 mL, Route: IVP, Drug Form: INJ, Dosing Weight 59.091, kg, PRN, PRN B lood Glucose Results, Start date: 08/22/18 17:03:00 CDT, Duration: 30 day, Stop date: 09/21/18 17:02:00 CDT Start Date: 08/22/18 Stop Date: 08/24/18 Status: Discontinued digoxin 125 microgram, 1 tab, Route: PO, Drug form: TAB, Daily, Dosing Weight 59.091, kg , Start date: 08/21/18 9:00:00 CDT, Duration: 30 day, Stop date: 09/19/18 9:00:0 0 CDT Notes: Take on an Empty Stomach (Same as: Lanoxin) Start Date: 08/21/18 Stop Date: 08/21/18 Status: Discontinued docusate 100 mg, 1 cap, Route: PO, Drug form: CAP, BID, Dosing Weight 59.091, kg, Start d ate: 08/20/18 17:00:00 CDT, Duration: 30 day, Stop date: 09/19/18 9:00:00 CDT Notes: (Same as: Colace) (Do Not Crush) Start Date: 08/20/18 Stop Date: 08/24/18 Status: Discontinued Eliquis 2.5 mg, 1 tab, Route: PO, Drug form: TAB, Q12H, Dosing Weight 59.091, kg, Start date: 08/23/18 9:00:00 CDT, Duration: 30 day, Stop date: 09/21/18 21:00:00 CDT Notes: Same as: Eliquis Start Date: 08/23/18 Stop Date: 08/24/18 Status: Discontinued ferrous sulfate 325 mg, 1 tab, Route: PO, Drug form: ECTAB, TID, Dosing Weight 59.091, kg, Start date: 08/20/18 17:00:00 CDT, Duration: 30 day, Stop date: 09/19/18 13:00:00 CDT Notes: Give with food. "Do Not Crush" Start Date: 08/20/18 Stop Date: 08/24/18 Status: Discontinued folic acid 0.4 mg, 1 tab, Route: PO, Drug form: TAB, Daily, Dosing Weight 59.091, kg, Start date: 08/21/18 9:00:00 CDT, Duration: 30 day, Stop date: 09/19/18 9:00:00 CDT Start Date: 08/21/18 Stop Date: 08/24/18 Status: Discontinued gabapentin 300 mg oral capsule 300 mg, 1 cap, Route: PO, Drug form: CAP, TID, Dosing Weight 59.091, kg, Start d ate: 08/20/18 17:00:00 CDT, Duration: 30 day, Stop date: 09/19/18 13:00:00 CDT Notes: (Same as: Neurontin) Start Date: 08/20/18 Stop Date: 08/24/18 Status: Discontinued glucagon 1 mg, Route: IM, Drug form: PDR/INJ, PRN, Dosing Weight 59.091, kg, PRN Blood Gl ucose Results, Start date: 08/20/18 15:36:00 CDT, Duration: 30 day, Stop date: 0 09/19/18 15:35:00 CDT Start Date: 08/20/18 Stop Date: 08/24/18 Status: Discontinued glucagon 1 mg, Route: IM, Drug form: PDR/INJ, PRN, Dosing Weight 59.091, kg, PRN Blood Gl ucose Results, Start date: 08/22/18 17:03:00 CDT, Duration: 30 day, Stop date: 0 09/21/18 17:02:00 CDT Start Date: 08/22/18 Stop Date: 08/24/18 Status: Discontinued hydrALAZINE 10 mg, 0.5 mL, Route: IVP, Drug form: INJ, Q6H, Dosing Weight 59.091, kg, PRN Hy pertension, Start date: 08/22/18 4:32:00 CDT, Duration: 30 day, Stop date: 09/21 4:31:00 CDT Notes: (Same as: Apresoline)Push over 5 minutes Start Date: 08/22/18 Stop Date: 08/24/18 Status: Discontinued insulin lispro 5 unit, 0.05 mL, Route: SUB-Q, Drug form: SOLN, TID-Before Meals, Dosing Weight 59.091, kg, PRN Blood Glucose Results, Start date: 08/22/18 17:03:00 CDT, Durati on: 30 day, Stop date: 09/21/18 17:02:00 CDT Notes: (Same as: Humalog) Roll in palms of hands gently; Do not shake vigorously . WASTE: F/P - Black; E - Municipal Trash BinStable for 28 days at room [facility]a t[facility].Expires in days from Date Start Date: 08/22/18 Stop Date: 08/24/18 Status: Discontinued insulin lispro 4 unit, 0.04 mL, Route: SUB-Q, Drug form: SOLN, TID-Before Meals, Dosing Weight 59.091, kg, PRN Blood Glucose Results, Start date: 08/22/18 17:03:00 CDT, Durati on: 30 day, Stop date: 09/21/18 17:02:00 CDT Notes: (Same as: Humalog) Roll in palms of hands gently; Do not shake vigorously . WASTE: F/P - Black; E - Municipal Trash BinStable for 28 days at room [facility].Expires in days from Date Start Date: 08/22/18 Stop Date: 08/24/18 Status: Discontinued insulin lispro 1 unit, 0.01 mL, Route: SUB-Q, Drug form: SOLN, TID-Before Meals, Dosing Weight 59.091, kg, PRN Blood Glucose Results, Start date: 08/22/18 17:03:00 CDT, Durati on: 30 day, Stop date: 09/21/18 17:02:00 CDT Notes: (Same as: Humalog) Roll in palms of hands gently; Do not shake vigorously . WASTE: F/P - Black; E - Municipal Trash BinStable for 28 days at room [facility].Expires in days from Date Start Date: 08/22/18 Stop Date: 08/24/18 Status: Discontinued insulin lispro 2 unit, 0.02 mL, Route: SUB-Q, Drug form: SOLN, TID-Before Meals, Dosing Weight 59.091, kg, PRN Blood Glucose Results, Start date: 08/22/18 17:03:00 CDT, Durati on: 30 day, Stop date: 09/21/18 17:02:00 CDT Notes: (Same as: Humalog) Roll in palms of hands gently; Do not shake vigorously . WASTE: F/P - Black; E - [facility] Date Start Date: 08/22/18 Stop Date: 08/24/18 Status: Discontinued insulin lispro 3 unit, 0.03 mL, Route: SUB-Q, Drug form: SOLN, TID-Before Meals, Dosing Weight 59.091, kg, PRN Blood Glucose Results, Start date: 08/22/18 17:03:00 CDT, Durati on: 30 day, Stop date: 09/21/18 17:02:00 CDT Notes: (Same as: Humalog) Roll in palms of hands gently; Do not shake vigorously . WASTE: F/P - Black; E - Municipal Trash BinStable for 28 days at room [facility].Expires in days from Date Start Date: 08/22/18 Stop Date: 08/24/18 Status: Discontinued insulin lispro 3 unit, 0.03 mL, Route: SUB-Q, Drug form: SOLN, Bedtime, Dosing Weight 59.091, k g, PRN Blood Glucose Results, Start date: 08/22/18 17:03:00 CDT, Duration: 30 da y, Stop date: 09/21/18 17:02:00 CDT Notes: (Same as: Humalog) Roll in palms of hands gently; Do not shake vigorously . WASTE: F/P - Black; E - [facility] from Date Start Date: 08/22/18 Stop Date: 08/24/18 Status: Discontinued insulin lispro 4 unit, 0.04 mL, Route: SUB-Q, Drug form: SOLN, Bedtime, Dosing Weight 59.091, k g, PRN Blood Glucose Results, Start date: 08/22/18 17:03:00 CDT, Duration: 30 da y, Stop date: 09/21/18 17:02:00 CDT Notes: (Same as: Humalog) Roll in palms of hands gently; Do not shake vigorously . WASTE: F/P - Black; E - Municipal Trash BinStable for 28 days at room [facility].Expires in days from Date Start Date: 08/22/18 Stop Date: 08/24/18 Status: Discontinued insulin lispro 1 unit, 0.01 mL, Route: SUB-Q, Drug form: SOLN, Bedtime, Dosing Weight 59.091, k g, PRN Blood Glucose Results, Start date: 08/22/18 17:03:00 CDT, Duration: 30 da y, Stop date: 09/21/18 17:02:00 CDT Notes: (Same as: Humalog) Roll in palms of hands gently; Do not shake vigorously . WASTE: F/P - Black; E - Municipal Trash BinStable for 28 days at room tempera t[facility].Expires in days from Date Start Date: 08/22/18 Stop Date: 08/24/18 Status: Discontinued insulin lispro 2 unit, 0.02 mL, Route: SUB-Q, Drug form: SOLN, Bedtime, Dosing Weight 59.091, k g, PRN Blood Glucose Results, Start date: 08/22/18 17:03:00 CDT, Duration: 30 da y, Stop date: 09/21/18 17:02:00 CDT Notes: (Same as: Humalog) Roll in palms of hands gently; Do not shake vigorously . WASTE: F/P - Black; E - Municipal Trash BinStable for 28 days at room [facility]a t[facility].Expires in days from Date Start Date: 08/22/18 Stop Date: 08/24/18 Status: Discontinued lisinopril 40 mg, 2 tab, Route: PO, Drug form: TAB, Daily, Dosing Weight 59.091, kg, Start date: 08/20/18 21:00:00 CDT, Duration: 30 day, Stop date: 09/19/18 9:00:00 CDT Notes: (Same as: Prinivil, Zestril) Start Date: 08/20/18 Stop Date: 08/24/18 Status: Discontinued metoprolol 50 mg oral tablet, extended release 50 mg = 1 tab, PO, Daily, # 30 tab, 0 Refill(s), Pharmacy: [facility] [id number] Start Date: 08/24/18 Status: Ordered metoprolol extended release 150 mg, 3 tab, Route: PO, Drug form: ERTAB, BID, Start date: 08/20/18 17:00:00 C DT, Duration: 30 day, Stop date: 09/19/18 9:00:00 CDT Notes: (Same as: Toprol XL) May split tab, but do not crush. Start Date: 08/20/18 Stop Date: 08/21/18 Status: Discontinued metoprolol extended release 50 mg, 1 tab, Route: PO, Drug form: ERTAB, Daily, Start date: 08/22/18 9:00:00 C DT, Duration: 30 day, Stop date: 09/20/18 9:00:00 CDT Notes: (Same as: Toprol XL) May split tab, but do not crush. Start Date: 08/22/18 Stop Date: 08/24/18 Status: Discontinued minocycline 100 mg, 2 cap, Route: PO, Drug form: CAP, HVCQ36A, Dosing Weight 59.091, kg, Sta rt date: 08/20/18 18:00:00 CDT, Duration: 30 day, Stop date: 09/19/18 6:00:00 CD T Notes: (Same as:Minocin) No milk/antacids/iron. Start Date: 08/20/18 Stop Date: 08/24/18 Status: Discontinued morphine Sulfate 2 mg, 1 mL, Route: IVP, Drug form: SOLN, Q4H, Dosing Weight 59.091, kg, PRN Pain Score 4-6, Start date: 08/23/18 11:54:00 CDT, Duration: 30 day, Stop date: 08/31 07/18 11:53:00 CDT Start Date: 08/23/18 Stop Date: 08/24/18 Status: Discontinued ondansetron 4 mg, 2 mL, Route: IVP, Drug form: INJ, Q8H, Dosing Weight 59.091, kg, PRN Nause a & Vomiting, Start date: 08/20/18 15:36:00 CDT, Duration: 30 day, Stop date: 09/19/18 15:35:00 CDT Notes: (Same as: Boo) MEDICATION WASTE Product Size: 4 mgProduct Was prakash: ___ mg Start Date: 08/20/18 Stop Date: 08/24/18 Status: Discontinued pantoprazole 40 mg, 1 tab, Route: PO, Drug form: ECTAB, Before Breakfast, Dosing Weight 59.09 1, kg, Start date: 08/21/18 7:30:00 CDT, Duration: 30 day, Stop date: 09/19/18 7 :30:00 CDT Notes: Tablet should not be chewed or crushed.(Same as: Protonix) Start Date: 08/21/18 Stop Date: 08/24/18 Status: Discontinued potassium chloride 10 mEq, 100 mL, Route: IVPB, Drug form: INJ, ONCE, Dosing Weight 59.091, kg, Leola ority: STAT, Start date: 08/23/18 11:47:00 CDT, Stop date: 08/23/18 11:47:00 CDT Notes: Infuse at a rate of 10 mEq/hr.(Same as: KCL)call [phone] after tubing med call [phone] after tubing medcall [phone] after tubing med Start Date: 08/23/18 Stop Date: 08/23/18 Status: Completed Saline Flush 0.9% 10 mL, Route: IVP, Drug Form: INJ, Dosing Weight 59.091, kg, PRN, PRN Line Flush , Start date: 08/20/18 9:20:00 CDT, Duration: 30 day, Stop date: 09/19/18 9:19:0 0 CDT Notes: (Same as: BD Posiflush) Start Date: 08/20/18 Stop Date: 08/24/18 Status: Discontinued Sodium Chloride 0.9% (Bolus) IV 500 mL, Infuse Over: 1 hr, Route: IV, ONCE, Priority: STAT, Dosing Weight 59.091 kg, Start date: 08/20/18 9:20:00 CDT, Stop date: 08/20/18 9:20:00 CDT Start Date: 08/20/18 Stop Date: 08/20/18 Status: Completed spironolactone 25 mg, 1 tab, Route: PO, Drug form: TAB, Daily, Dosing Weight 59.091, kg, Start date: 08/23/18 9:00:00 CDT, Duration: 30 day, Stop date: 09/21/18 9:00:00 CDT Notes: (Same As: Aldactone) Start Date: 08/23/18 Stop Date: 08/24/18 Status: Discontinued trazodone 50 mg, 1 tab, Route: PO, Drug form: TAB, Bedtime, Dosing Weight 59.091, kg, PRN Insomnia, Priority: NOW, Start date: 08/20/18 19:55:00 CDT, Duration: 30 day, St op date: 09/19/18 19:54:00 CDT Notes: (Same As: Desyrel) Start Date: 08/20/18 Stop Date: 08/24/18 Status: Discontinued Results Most recent to 1 2 oldest [Reference Range]: Neutrophils # 5.6 K/CMM 6.4 K/CMM [1.5-8.1 K/CMM] (08/23/18 6:47 AM) (08/20/18 9:37 AM) Lymphocytes # 1.5 K/CMM 1.1 K/CMM [1.0-5.5 K/CMM] (08/23/18 6:47 AM) (08/20/18 9:37 AM) Monocytes # [0.0-0.8 0.7 K/CMM 0.7 K/CMM K/CMM] (08/23/18 6:47 AM) (08/20/18 9:37 AM) Eosinophils # 0.2 K/CMM 0.1 K/CMM [0.0-0.5 K/CMM] (08/23/18 6:47 AM) (08/20/18 9:37 AM) Basophils # [0.0-0.2 0.1 K/CMM 0.1 K/CMM K/CMM] (08/23/18 6:47 AM) (08/20/18 9:37 AM) BNP [<=100 pg/mL] 290 pg/mL *HI* (08/20/18 9:37 AM) eGFR 83 mL/min/1.73m2 1 63 mL/min/1.73m2 2 *NA* *NA* (08/23/18 6:47 AM) (08/20/18 9:37 AM) A/G Ratio [0.7-1.6] 0.8 (08/20/18 9:37 AM) Albumin Lvl [3.5-5.0 3.1 g/dL g/dL] *LOW* (08/20/18 9:37 AM) Alk Phos [39-136 78 unit/L unit/L] (08/20/18 9:37 AM) ALT [0-65 unit/L] 29 unit/L (08/20/18 9:37 AM) AGAP [10.0-20.0 16.3 mEq/L 15.2 mEq/L mEq/L] (08/23/18 6:47 AM) (08/20/18 9:37 AM) AST [0-37 unit/L] 28 unit/L (08/20/18 9:37 AM) B/C Ratio [6-25] 18 (08/20/18 9:37 AM) Basophils [0.0-1.0 0.7 % 0.8 % %] (08/23/18 6:47 AM) (08/20/18 9:37 AM) BUN [7-22 mg/dL] 14 mg/dL 16 mg/dL (08/23/18 6:47 AM) (08/20/18 9:37 AM) Calcium Lvl 8.9 mg/dL 8.6 mg/dL [8.5-10.5 mg/dL] (08/23/18 6:47 AM) (08/20/18 9:37 AM) Chloride Lvl [95-109 111 mEq/L 108 mEq/L mEq/L] *HI* (08/20/18 9:37 AM) (08/23/18 6:47 AM) CO2 [24-32 mEq/L] 19 mEq/L 20 mEq/L *LOW* *LOW* (08/23/18 6:47 AM) (08/20/18 9:37 AM) Creatinine Lvl 0.70 mg/dL 0.88 mg/dL [0.50-1.40 mg/dL] (08/23/18 6:47 AM) (08/20/18 9:37 AM) Eosinophils [0.0-4.0 2.7 % 1.6 % %] (08/23/18 6:47 AM) (08/20/18 9:37 AM) Globulin [2.7-4.2 3.8 g/dL g/dL] (08/20/18:37 AM) Glucose Lvl [70-99 133 mg/dL 135 mg/dL mg/dL] *HI* *HI* (08/23/18 6:47 AM) (08/20/18:37 AM) Hct [36.0-48.0 %] 46.3 % 43.5 % (08/23/18 6:47 AM) (08/20/18 9:37 AM) Hgb [12.0-16.0 g/dL] 15.0 g/dL 14.3 g/dL (08/23/18:47 AM) (08/20/18:37 AM) INR [0.85-1.17] 1.04 (08/20/18:37 AM) Potassium Lvl 3.3 mEq/L 4.2 mEq/L [3.5-5.1 mEq/L] *LOW* (08/20/18:37 AM) (08/23/18 6:47 AM) Lymphocytes 19.0 % 13.2 % [20.0-40.0 %] *LOW* *LOW* (08/23/18 6:47 AM) (08/20/18:37 AM) MCH [27.0-31.0 pg] 30.6 pg 30.8 pg (08/23/18:47 AM) (08/20/18:37 AM) MCHC [32.0-36.0 32.4 g/dL 32.8 g/dL g/dL] (08/23/18 6:47 AM) (08/20/18 9:37 AM) MCV [80.0-98.0 fL] 94.4 fL 94.0 fL (08/23/18 6:47 AM) (08/20/18 9:37 AM) Magnesium Lvl 1.6 mg/dL [1.8-2.4 mg/dL] *LOW* (08/23/18 6:47 AM) Monocytes [2.0-12.0 8.0 % 8.0 % %] (08/23/18 6:47 AM) (08/20/18 9:37 AM) MPV [7.4-10.4 fL] 7.9 fL 8.3 fL (08/23/18 6:47 AM) (08/20/18 9:37 AM) Sodium Lvl [135-145 143 mEq/L 139 mEq/L mEq/L] (08/23/18 6:47 AM) (08/20/18 9:37 AM) Platelet [133-450 203 K/CMM 200 K/CMM K/CMM] (08/23/18 6:47 AM) (08/20/18 9:37 AM) Segs [45.0-75.0 %] 69.6 % 76.4 % (08/23/18 6:47 AM) *HI* (08/20/18 9:37 AM) Total Protein 6.9 g/dL [6.4-8.4 g/dL] (08/20/18 9:37 AM) PT [12.0-14.7 13.4 seconds seconds] (08/20/18 9:37 AM) PTT [22.9-35.8 28.2 seconds seconds] (08/20/18 9:37 AM) RBC [4.20-5.40 4.91 M/CMM 4.63 M/CMM M/CMM] (08/23/18 6:47 AM) (08/20/18 9:37 AM) RDW [11.5-14.5 %] 16.4 % 16.1 % *HI* *HI* (08/23/18 6:47 AM) (08/20/18 9:37 AM) Bili Total [0.2-1.3 1.0 mg/dL mg/dL] (08/20/18 9:37 AM) Troponin-I 0.39 ng/mL 0.64 ng/mL 3 [0.00-0.40 ng/mL] (08/21/18 3:02 PM) *CRIT* (08/20/18 9:37 AM) UA Bacteria [None Occasional /HPF Seen /HPF] *NA* (08/20/18 1:05 PM) UA Bili [Negative] Negative *NA* (08/20/18 1:05 PM) UA Blood [Negative] Negative (08/20/18 1:05 PM) UA Color [Yellow] Yellow *NA* (08/20/18 1:05 PM) UA Glucose [Negative Negative mg/dL mg/dL] *NA* (08/20/18 1:05 PM) UA Hyal Cast [0-2 5 /LPF /LPF] *HI* (08/20/18 1:05 PM) UA Ketones [Negative Trace mg/dL mg/dL] *ABN* (08/20/18 1:05 PM) UA Leuk Est Negative [Negative] (08/20/18 1:05 PM) UA Mucus [None Seen Few /LPF /LPF] *NA* (08/20/18 1:05 PM) UA Nitrite Negative [Negative] (08/20/18 1:05 PM) UA pH [5.0-8.0] 5.0 (08/20/18 1:05 PM) UA Protein [Negative 30 mg/dL mg/dL] *ABN* (08/20/18 1:05 PM) UA RBC [0-2 /HPF] 3 /HPF *HI* (08/20/18 1:05 PM) UA Spec Grav 1.023 [<=1.030] (08/20/18 1:05 PM) UA Sq Epi [Few /LPF] Moderate /LPF *ABN* (08/20/18 1:05 PM) UA Turbidity [Clear] Slight *ABN* (08/20/18 1:05 PM) UA Urobilinogen <=1.0 mg/dL [0.1-1.0 mg/dL] *NA* (08/20/18 1:05 PM) UA WBC [0-5 /HPF] 1 /HPF (08/20/18 1:05 PM) WBC [3.7-10.4 K/CMM] 8.1 K/CMM 8.3 K/CMM (08/23/18 6:47 AM) (08/20/18 9:37 AM) 1Result Comment: The eGFR is calculated using [...] BMI. 3Result Comment: Critical Result(s) called to Dr. Ernst at 08/20/2018 10:44 by AD. Read back OK. Immunizations No data available [...] 08/20/18 Assessment and Plan Extracted from: Title: Clinical Document Author: Starr Castillo MD Date: 08/24/18 Daily Progress Note [facility] Starr Castillo MD SUBJECTIVE: pt seen and examined, events noted no new c/o today OBJECTIVE: Vitals and Temp: VitalsTmp(F)[id number] 08/24 11:[id number]/69--95--- 08/24 07:2298.181520/80--94--- 08/24 05:45----01536/82-------- 08/24 04:38-------184/99-------- 08/24 04:[id number]--- 24 Hr Tmax: 98.2F (36.78c) at 08/23 20:1 9Vital Signs are the last 5 in the past 48 hours. Labs (Last four charted values) WBC 8.1(AUGUST 23)8.3(AUGUST 20) Hgb 15.0(AUGUST 23)14.3(AUGUST 20) Hct 46.3(AUGUST 23)43.5(AUGUST 20) Plt 203(AUGUST 23)200(AUGUST 20) Na 143(AUGUST 23)139(AUGUST 20) K L 3.3(AUGUST 23)4.2(AUGUST 20) CO2 L 19(AUGUST 23)L 20(AUGUST 20) Cl H 111(AUGUST 23)108(AUGUST 20) Cr 0.70(AUGUST 23)0.88(AUGUST 20) BUN 14(AUGUST 23)16(AUGUST 20) Glucose Random H 133(AUGUST 23)H 135(AUGUST 20) Mg L 1.6(AUGUST 23) Ca 8.9(AUGUST 23)8.6(AUGUST 20) PT 13.4(AUGUST 20) INR 1.04(AUGUST 20) PTT 28.2(AUGUST 20) Troponin 0.39(AUGUST 21)C 0.64(AUGUST 20) ASSESSMENT & EXAM: General: in no apparent distress at [...] Oriented X 3. No motor deficit. DIAGNOSES & PROBLEMS: *Syncope likely due to dehydration/medication effect *Non-ST elevation [place] *Hypertension *Recent biventricular cardiac defibrillator placement *Past history of CVA *Hypertension *Hyperlipidemia. *allergic rxn to hydralazine? PLAN & TREATMENT: Elevated troponin likely from recent pacemaker placement, not ACS. Continue plavix s/p ICD revision keep pressure dressing x 1 week. Continue metoprolol. Orthostatic vitals are negative hopeful discharge adjust BP meds for uncontrolled HTN MEDICATIONS Scheduled Meds (13):(Suspended) apixaban (Eliquis), atorvastatin, bumetanide (Bumex), clopidogrel, docusate, ferrous sulfate, folic acid, gabapentin (gabapentin 300 mg oral capsule), lisinopril, metoprolol (metoprolol extended release), minocycline, pantoprazole, spironolactone Unscheduled Meds: None PRN Meds (22):Dextrose 50% in Water IV (Dextrose 50% Syringe), [...] done) potassium chloride Continuous Infusions: None Extracted from: Title: Cardiology Consultation Author: Severo Butterfield MD Date: 08/20/18 [facility] Consult Note Attending: Starr Castillo MDPhone: Service: Internal Medicine Code status: Full Code Reason for Admission: SYNCOPE, ELEVATED TROPONIN Working DRG: Isolation: No Isolation/Standard Precautions Consulting Physicians: Don Garcia MDOffice: Service: Cardiology Severo Butterfield MDOffice: Service: Cardiology Reason for Consultation: elevated troponin, [...] No. Substance Abuse Details: Use: None. Exam: VitalsTmp(F)[id number] 08/21 09:48----79 08/21 07:[id number]--- 08/21 05:0797.533851/235862--- 08/20 23:1498.129375/[id number]--- 08/20 22:29----66600/88-------- 24 Hr Tmax: 98.3F (36.83c) at 08/20 23:1 4Vital Signs are the last 5 in the past 48 hours. DateWt(kg)Wt(lb)Ht(cm)Ht(in)Method 08/20 (initial) 59.09 [id number] 64.00 Estimated I/O Intake OutputBalance 420.00 0.00 420.00As of 11:02 3p-11p 0.00 0.00 0. 00 11p-7a 0.00 0.00 0. 00 Totals 420.00 0.00 420.00 -3p 500.00 0.00 500.00 3p-11p 0.00 0.00 0. 00 11p-7a 0.00 0.00 0. 00 Totals 500.00 0.00 500.00 -3p 0.00 0.00 0.00 3p-11p 0.00 0.00 0. 00 11p-7a 0.00 0.00 0. 00 Totals 0.00 0.00 0.00 Eyes: conjunctivae clear. [...] Tape, Adhesive Medications (20) Active Scheduled Meds (11): 08/21/18 AMIODarone 200 mg PO Daily 08/20/18 [...] PO Daily 08/20/18 minocycline 100 mg PO [id number] 08/21/18 pantoprazole 40 mg PO Before Br [...] None Labs (Last four charted values) WBC 8.3(AUGUST 20) Hgb 14.3(AUGUST 20) Hct 43.5(AUGUST 20) Plt 200(AUGUST 20) Na 139(AUGUST 20) K 4.2(AUGUST 20) CO2 L 20(AUGUST 20) Cl 108(AUGUST 20) Cr 0.88(AUGUST 20) BUN 16(AUGUST 20) Glucose Random H 135(AUGUST 20) Ca 8.6(AUGUST 20) PT 13.4(AUGUST 20) INR 1.04(AUGUST 20) PTT 28.2(AUGUST 20) Troponin C 0.64(AUGUST 20) Imaging: Reviewed. Telemetry: paced ECG: paced [...] involving us in this patient's care. Extracted from: Title: Clinical Document Author: Adelfo Greene MD Date: [...] likely due to dehydration/medication effect *Non-ST elevation [place] *Hypertension *Recent biventricular cardiac defibrillator placement *Past [...]
--- OUTSIDE RECORDS SUMMARY | 2019-08-24 16:55 | XMS REPORT ---
Author Author [facility] t Organization [facility] Address 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 Medicare A & B [id number] 2005 00:00:00 [facility] Employees [id number] 2013 00:00:[address] [facility] Medicare A & B [id number] 2005 00:00:00 C [facility] Employees [id number] 2013 00:00:[address] [facility] Medicare A & B [id number] 2005 00:00:00 C [facility] Employees [id number] 2013 00:00:[address] [facility] Medicare A & B [id number] 2005 00:00:00 C [facility] Problems Condition Name Condition Details Condition Category Status Onset Date Resolution Date Last Treatment Date Treating Clinician Comments Source SEVERE LEG PAIN ALISON RE LEG PAIN Active 06/30/2019 [facility] Speed Diagnosis Active 2019-06-30 12:00:00 2019-07-03 09:27:00 [facility] SYNCOPAL EPISODE SYNC OPAL EPISODE Active 08/20/2018 [facility] Diagnosis Active 2018-08-20 00:00:00 2018-08-20 10:30:00 [facility] SYNCOPE, ELEVATED TROPONIN SYN COPE, ELEVATED TROPONIN Active 08/20/2018 [facility] Diagnosis Active 2018-08-20 00:00:00 2018-08-22 22:48:00 [facility] BI-V ICD IMPLANT / AV NODE ABALTION BI-V ICD IMPLANT / AV NODE ABALTION Active 08/12/2018 [facility] Diagnosis Active 2018-08-12 00:00:00 2018-08-18 13:59:00 [facility] LT HEART CATH / POSS PCI /C IMPELLA LT HEART CATH / POSS PCI /C IMPELLA Active 04/29/2018 [facility] Diagnosis Active 2018-04-29 00:00:00 2018-05-02 11:32:00 [facility] Atrial fibrillation with rapid ventricular response At rial fibrillation with RVR Problem Active [facility] Dyspnea Dyspnea Problem Active [facility] Hypokalemia Hypokalemia Problem Active [facility] Hypomagnesemia Hypomagnesemia Problem Active [facility] Chronic systolic (congestive) heart failure Chronic systolic (congestive) heart failure 11/20/2018 [facility] Problem 2018-11-20 14:43:50 [facility] Ischemic cardiomyopathy Isch emic cardiomyopathy 11/20/2018 [facility] Problem 2018-11-20 14:43:50 [facility] Unspecified atrial fibrillation Unspecified atrial fibrillation 11/20/2018 [facility] Problem 2018-11-20 14:43:50 [facility] Coronary atherosclerosis due to calcified coronary les ion Coronary atherosclerosis due to calcified coronary lesion 11/20/2018 [facility] 2018-11-20 14:43:50 [facility] Atherosclerosis of aorta Athe rosclerosis of aorta 11/20/2018 [facility] Problem 2018-11-20 14:43:50 [facility] Dysphagia, unspecified Dysp hagia, unspecified 11/20/2018 [facility] Problem 2018-11-20 14:43:50 [facility] Hypertensive heart disease with heart failure Hypertensive heart disease with heart failure 11/20/2018 [facility] 2018-11-20 14:43:50 [facility] 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 11/20/2018 [facility] Problem 2018-11-20 14:43:50 [facility] Type 2 diabetes mellitus without complications Type 2 diabetes mellitus without complications 11/20/2018 [facility] Problem 2018-11-20 14:43:50 [facility] Paroxysmal atrial fibrillation Paroxysmal atrial fibrillation 11/20/2018 [facility] Problem 2018-11-20 14:43:50 [facility] Mixed hyperlipidemia Mixe d hyperlipidemia 11/20/2018 [facility] Problem 2018-11-20 14:43:50 [facility] Personal history of nicotine dependence Personal history of nicotine dependence 11/20/2018 [facility] Problem 2018-11-20 14:43:50 [facility] Atrial fibrillation (disorder) Atrial fibrillation (disorder) Active Problem 08/03/2019 [facility] Speed Problem Active 2019-08-03 21:54:24 [facility] Speed Congestive heart failure (disorder) Congestive heart failure (disorder) Active Problem 08/03/2019 [facility] Speed Problem Active 2019-08-03 21:54:24 [place] Speed Diabetes mellitus (disorder) D iabetes mellitus (disorder) Active Problem 08/03/2019 [facility] Speed Problem Active 2019-08-03 21:54:24 [facility] Speed Dyspnea on exertion (finding) Dyspnea on exertion (finding) Active Problem 08/03/2019 [facility] Speed Problem A ctive 2019-08-03 21:54:24 [facility] Speed Gastroesophageal reflux disease (disorder) Gastroesophageal reflux disease (disorder) Active Problem 08/03/2019 [facility] Speed Problem Active 2019-08-03 21:54:24 [employer] Hypertensive disorder, systemic arterial (disorder) Hypertensive disorder, systemic arterial (disorder) Active Problem 08/03/2019 [facility] Speed Problem Active 2019-08-03 21:5 4:24 [facility] Hypothyroidism (disorder) Hypo thyroidism (disorder) Active Problem 08/03/2019 [facility] Speed Problem Active 2019-08-03 21:54:24 [facility] Speed Peripheral venous insufficiency (disorder) Peripheral venous insufficiency (disorder) Active Problem 08/03/2019 [facility] Speed Problem Active 2019-08-03 21:54:24 [place] Speed CARDIAC CATHETERIZATION CAUSE ABN REACT/ CARDIAC CATHETERIZATION CAUSE ABN REACT/ Active [facility] Diagnosis Active 2018-05-02 11:32:00 [facility] SYNCOPE AND COLLAPSE SYNC OPE AND COLLAPSE Active [facility] Diagnosis Active 2018-08-22 22:48:00 [facility] ABNORMAL LEVELS OF OTHER SERUM ENZYMES ABNORMAL LEVELS OF OTHER SERUM ENZYMES Active [facility] Diagnosis Active 2018-08-22 22:48:00 [facility] Atherosclerotic heart disease of [place] coronary arter y without angina pectoris Atherosclerotic heart disease of [place] coronary artery without angina pectoris 05/07/2018 11/20/2018 [facility] Problem 2018-05-07 04:57:29 2018-11-20 14:43:50 2018-11-20 14:43:50 [facility] Allergies, Adverse Reactions, Alerts Allergy Name Allergy Type Status Severity Reaction(s) Onset Date Inacti ve Date Treating Clinician Comments Source codeine DA Active U 2019-07-07 00:00:00 [facility] hydrocodone DA Active AR 2019-07-07 00:00:00 [facility] cetirizine DA Active U 2019-07-07 00:00:00 [facility] hydrocodone DA Active AR 2019-03-14 00:00:00 [facility] cetirizine DA Active AR 2019-03-14 00:00:00 [facility] MEDICAL TAPE DA Active AR 2019-03-14 00:00:00 [facility] Penicillins DA Active U 2018-09-01 00:00:00 [facility] Alprazolam Allergy to Substance Active Unknown 2018-08-07 00:00:00 [facility] Codeine Allergy to Substance Active Mild 2018-04-18 00:00:00 [facility] Cetirizine Allergy to Substance Active Mild 2018-04-18 00:00:00 [facility] PLASTIC TAPE Allergy to Substance Active Unknown RASH 2018-04-18 00:00: 00 [facility] codeine DA Active U 2014-07-05 00:00:00 [facility] cetirizine DA Active U 2014-07-05 00:00:00 [facility] MEDICAL TAPE DA Active U 2014-07-05 00:00:00 [facility] CODEINE DA Active U 2008-03-16 00:00:00 [facility] No Known Contrast Allergies DA Active U 2008-03-16 00:00: 00 [facility] No Known Food Allergies DA Active U 2008-03-16 00:00:00 [facility] TAPE DA Active U 2008-03-16 00:00:00 [facility] ULTRAM DA Active U 2008-03-16 00:00:00 [facility] ZYRTEC DA Active U 2008-03-16 00:00:00 [facility] codeine DA Active U 2007-12-19 00:00:00 [facility] tramadol DA Active U 2007-12-19 00:00:00 [facility] Adhesive Adhesive Active [facility] Tape Tape Active [facility] HYDROcodone HYDROcodone Active [facility] Social History Social Habit Start Date Stop Date Quantity Comments Source Social History 2018-08-20 22:41:21 2018-08-20 22:41:21 [facility] Medications Ordered Medication Name Filled Medication Name Start Date Stop Da te Current Medication? Ordering Clinician Indication Dosage Frequency Signature (SIG) Comments Components Source bumetanide 1 mg oral tablet 2018-08-24 20:45:00 Yes 0.5 mg = 0.5 tab, PO, BID, # 60 tab, 0 Refill(s), Pharmacy: [address] metoprolol 50 mg oral tablet, extended release 2018-08-24 20:45: 00 Yes 50 mg = 1 tab, PO, Daily, # 30 tab, 0 Refill(s), Pharmacy: [address] apixaban 2.5 mg oral tablet 2018-08-24 20:45:00 Yes 2.5 mg = 1 tab, PO, Q12H, # 60 tab, 0 Refill(s), Pharmacy: [address] Clonidine 2018-08-23 19:42:00 No Notes: (Sa me As: Catapres) [facility] Morphine 2018-08-23 16:54:00 No 2 mg, 1 mL, Route: IVP, Drug form: SOLN, Q4H, Dosing Weight 59.091, kg, PRN Pain Score 4-6, Start date: 08/23/18 11:54:00 CDT, Duration: 30 day, Stop date: 09/22/18 11:53:00 CDT [facility] Potassium Chloride 2018-08-23 16:47:00 No Notes: Infuse at a rate of 10 mEq/hr. (Same as: KCL) call [id number] after tubing med call [id number] after tubing med call [id number] after tubing med [facility] Eliquis 2018-08-23 14:00:00 No Notes: Same as: Eliquis [facility] Spironolactone 2018-08-23 14:00:00 No Notes: (Same As: Aldactone) [facility] Bumex 2018-08-23 14:00:00 No Notes: (Same A s: Bumex) [facility] Bumex 2018-08-23 02:46:00 No Notes: (Same A s: Bumex) [facility] Glucagon 2018-08-22 22:03:00 No 1 mg, Route: IM, Drug form: PDR/INJ, PRN, Dosing Weight 59.091, kg, PRN Blood Glucose Results, Start date: 08/22/18 17:03:00 CDT, Duration: 30 day, Stop date: 09/21/18 17:02:00 CDT [facility] Dextrose 50% Syringe 2018-08-22 22:03:00 No 25 gm, 50 mL, Route: IVP, Drug Form: INJ, Dosing Weight 59.091, kg, PRN, PRN Blood Glucose Results, Start date: 08/22/18 17:03:00 CDT, Duration: 30 day, Stop date: 09/21/18 17:02:00 CDT [facility] Insulin Lispro 2018-08-22 22:03:00 No Notes: (Same as: Humalog) Roll in palms of hands gently; Do not shake vigorously. WASTE: F/P - Black; E - Municipal Trash Bin Stable for 28 days at room temperature. Expires in days from Date [facility] metoprolol extended release 2018-08-22 14:00:00 No Notes: (Same as: Toprol XL) May split tab, but do not crush. [facility] Hydralazine 2018-08-22 09:32:00 No Notes: (Same as: Apresoline) Push over 5 minutes [facility] Aspirin 2018-08-21 17:30:00 No Notes: Take with food. [facility] Folic Acid 2018-08-21 14:00:00 No 0.4 mg, 1 tab, Route: PO, Drug form: TAB, Daily, Dosing Weight 59.091, kg, Start date: 08/21/18 9:00:00 CDT, Duration: 30 day, Stop date: 09/19/18 9:00:00 CDT [facility] Digoxin 2018-08-21 14:00:00 No Notes: Take on an Empty Stomach (Same as: Lanoxin) [facility] clopidogrel 2018-08-21 14:00:00 No Notes: ( Same As: Plavix) [facility] Amiodarone 2018-08-21 14:00:00 No Notes: (S panda as: Cordarone) [facility] pantoprazole 2018-08-21 12:30:00 No Notes: Tablet should not be chewed or crushed. (Same as: Protonix) [facility] Lisinopril 2018-08-21 02:00:00 No Notes: (Same as: Prinivil, Zestril) [facility] atorvastatin 2018-08-21 02:00:00 No Notes: (Same as: Lipitor) [facility] Trazodone 2018-08-21 00:55:00 No Notes: (Sa me As: Desyrel) [facility] Minocycline 2018-08-20 23:00:00 No Notes: (Same as:Minocin) No milk/antacids/iron. [facility] Docusate 2018-08-20 22:00:00 No Notes: (Same as: Colace) (Do Not Crush) [facility] metoprolol extended release 2018-08-20 22:00:00 No Notes: (Same as: Toprol XL) May split tab, but do not crush. [facility] gabapentin 300 MG Oral Capsule 2018-08-20 22:00:00 No Notes: (Same as: Neurontin) [facility] ferrous sulfate 2018-08-20 22:00:00 No Notes: Give with food. "Do Not Crush" [facility] Dextrose 50% Syringe 2018-08-20 20:36:00 No 12.5 gm, 25 mL, Route: IVP, Drug Form: INJ, Dosing Weight 59.091, kg, PRN, PRN Blood Glucose Results, Start date: 08/20/18 15:36:00 CDT, Duration: 30 day, Stop date: 09/19/18 15:35:00 CDT [facility] Glucagon 2018-08-20 20:36:00 No 1 mg, Route: IM, Drug form: PDR/INJ, PRN, Dosing Weight 59.091, kg, PRN Blood Glucose Results, Start date: 08/20/18 15:36:00 CDT, Duration: 30 day, Stop date: 09/19/18 15:35:00 CDT [facility] Ondansetron 2018-08-20 20:36:00 No Notes: (Same as: Boo) MEDICATION WASTE Product Size: 4 mg Product Wasted: ___ mg [facility] Acetaminophen 2018-08-20 20:36:00 No Notes: Do not exceed 4 gm/day. (Same as: Tylenol) [facility] Aspirin 2018-08-20 15:47:00 No 324 mg, Route: CHEW, Drug form: CHEWTAB, ONCE, Dosing Weight 59.091, kg, Priority: STAT, Start date: 08/20/18 10:47:00 CDT, Stop date: 08/20/18 10:47:00 CDT [facility] Saline Flush 0.9% 2018-08-20 14:20:00 No Notes: (Same as: BD Posiflush) [facility] Sodium Chloride 0.9% (Bolus) IV 2018-08-20 14:20:00 No 500 mL, Infuse Over: 1 hr, Route: IV, ONCE, Priority: STAT, Dosing Weight 59.091 kg, Start date: 08/20/18 9:20:00 CDT, Stop date: 08/20/18 9:20:00 CDT [facility] tramadol hydrochloride 50 MG Oral Tablet 2018-08-19 14:37:00 Yes 50 mg = 1 tab, PO, Q8H, PRN Pain Score 1-5, # 20 tab, 0 Refill(s), given to patient [facility] minocycline 100 mg oral capsule 2018-08-19 14:37:00 Yes 100 mg = 1 cap, PO, Q12H, X 7 day, # 14 cap, 0 Refill(s), given to patient [facility] 24 HR mirabegron 50 MG Extended Release Tablet [Myrbetriq] 2018-08-19 14:00:00 No 50 mg, 1 t ab, Route: PO, Drug form: ERTAB, Daily, Dosing Weight 59.091, kg, Start date: 08/19/18 9:00:00 CDT, Duration: 30 day, Stop date: 09/17/18 9:00:00 CDT [facility] Lisinopril 2018-08-19 14:00:00 No Notes: (Same as: Prinivil, Zestril) [facility] Folic Acid 2018-08-19 14:00:00 No 0.4 mg, 1 tab, Route: PO, Drug form: TAB, Daily, Dosing Weight 59.091, kg, Start date: 08/19/18 9:00:00 CDT, Duration: 30 day, Stop date: 09/17/18 9:00:00 CDT [facility] Digoxin 2018-08-19 14:00:00 No Notes: Take on an Empty Stomach (Same as: Lanoxin) [facility] clopidogrel 2018-08-19 14:00:00 No Notes: ( Same As: Plavix) [facility] vancomycin + Sodium Chloride 0.9% IV 250 mL 2018-08-19 03:15:00 No 2001 mg: infuse over 2.5 hours For adult patients only: Round to nearest 250 mg per Medical Staff approval MEDICATION WASTE Product Size: 1000 mg Product Wasted: ___ mg [facility] metoprolol extended release 2018-08-19 02:00:00 No Notes: (Same as: Toprol XL) May split tab, but do not crush. [facility] atorvastatin 2018-08-19 02:00:00 No Notes: (Same as: Lipitor) [facility] Spironolactone 2018-08-18 22:00:00 No Notes: (Same As: Aldactone) [facility] pantoprazole 2018-08-18 21:30:00 No Notes: Tablet should not be chewed or crushed. (Same as: Protonix) [facility] RN please bring home med MYRBETRIQ to Pharmacy for label 2018-08-18 20:00:00 No RUBINA sotelo bring home med MYRBETRIQ to Pharmacy for label, 1, Drug form: MISC, Route: MISC, TID, 08/18/18 15:00:00 CDT, Duration: 30 day, Stop date: 09/17/18 9:00:00 CDT [facility] gabapentin 300 MG Oral Capsule 2018-08-18 20:00:00 No Notes: (Same as: Neurontin) [facility] ferrous sulfate 2018-08-18 19:34:00 No Notes: Give with food. "Do Not Crush" [facility] *RN please update h/w/a in ad hoc* 2018-08-18 19:30:00 No *RN please update h/w/a in ad hoc*, reminder, Drug form: MISC, Route: MISC, Q30Min, 08/18/18 14:30:00 CDT, Duration: 30 day, Stop date: 09/17/18 14:00:00 CDT [facility] Trazodone Hydrochloride 50 MG Oral Tablet 2018-08-18 18:00:00 No Notes: (Same As: Desyrel) [facility] Morphine 2018-08-18 15:12:00 No 2 mg, 1 mL, Route: IVP, Drug form: SOLN, Q4H, Dosing Weight 59.091, kg, PRN Pain Score 4-6, Start date: 08/18/18 10:12:00 CDT, Duration: 30 day, Stop date: 09/17/18 10:11:00 CDT [facility] Acetaminophen 2018-08-18 15:12:00 No Notes: Do not exceed 4 gm/day. (Same as: Tylenol) [facility] Vancomycin 2018-08-18 15:12:00 No 1,000 mg, Route: IVPB, ONCE, Dosing Weight 59.091, kg, Time Critical Medication, Start date: 08/18/18 10:12:00 CDT, Stop date: 08/18/18 10:12:00 CDT, ABX Indication: Surgical Prophylaxis [facility] metoprolol succinate 50 mg oral capsule, extended release 2018-08-18 11:58:00 Yes 150 mg = 3 cap, PO, BID, 0 Refil l(s) [facility] Digoxin 0.125 MG Oral Tablet [Digox] 2018-08-15 19:27:00 Ye s 125 microgram = 1 tab, PO, Daily, 0 Refill(s) [facility] spironolactone 25 mg oral tablet 2018-08-15 19:27:00 Yes 25 mg = 1 tab, PO, BID, # 60 tab, 0 Refill(s) [facility] pantoprazole 40 mg oral enteric coated tablet 2018-08-15 19:27:0 0 Yes 40 mg = 1 tab, PO, Daily, 0 Refill(s) [facility] Trazodone Hydrochloride 50 MG Oral Tablet 2018-08-15 19:26:00 Yes 50 mg = 1 tab, PO, TID, 0 Refill(s) [facility] AMIODarone 200 mg oral tablet 2018-08-15 19:26:00 Yes 200 mg = 1 tab, PO, Daily, 0 Refill(s) [facility] ferrous sulfate 325 MG Oral Tablet 2018-08-15 19:26:00 Yes 325 mg = 1 tab, PO, TID, 0 Refill(s) [facility] lisinopril 40 mg oral tablet 2018-08-15 19:26:00 Yes 40 mg = 1 tab, PO, Daily, 0 Refill(s) [facility] 24 HR mirabegron 50 MG Extended Release Tablet [Myrbetriq] 2018-08-15 19:25:00 Yes 50 mg = 1 tab, PO, Daily, # 30 tab, 0 Refill(s) [facility] gabapentin 300 MG Oral Capsule 2018-08-15 19:25:00 Yes 300 mg = 1 cap, PO, TID, 0 Refill(s) [facility] multivitamin 2018-08-15 19:25:00 No Daily, 0 Refill(s) [facility] Ocuvite 2018-08-15 19:23:00 Yes PO, Daily, 0 Refill(s) [facility] Folic Acid 0.4 MG Oral Tablet 2018-08-15 19:23:00 Yes 0.4 mg = 1 tab, PO, Daily, # 100 tab, 0 Refill(s) [facility] gabapentin 2018-05-03 23:00:00 No Notes: (S panda as: Neurontin) [facility] clopidogrel 75 mg oral tablet 2018-05-03 18:25:00 Yes 75 mg = 1 tab, PO, Daily, # 90 tab, 3 Refill(s) [facility] apixaban 5 mg oral tablet 2018-05-03 18:25:00 No 5 mg = 1 tab, PO, Q12H, # 180 tab, 3 Refill(s) [facility] metoprolol 100 mg oral tablet, extended release 2018-05-03 18:25 :00 No 100 mg = 1 tab, PO, BID, # 180 tab, 3 Refill(s) [facility] gabapentin 2018-05-03 18:10:00 No Notes: (S panda as: Neurontin) [facility] Protonix 2018-05-03 18:10:00 No Notes: Tablet should not be chewed or crushed. (Same as: Protonix) [facility] Potassium Chloride 2018-05-03 14:00:00 No Notes: Infuse at a rate of 10 mEq/hr. (Same as: KCL) [facility] Potassium Chloride 2018-05-03 13:51:00 No Notes: (Same as: K-Dur 20) "Do Not Crush" Give with food and full glass of water For patients unable to swallow tablet, dissolve in one half glass of water. Allow about 2 minutes for the tablets to disintegrate. Stir before giving to prepare slurry and administer. Please exclude Patient s with feeding tube less than 14 [place] (Dobhoff, J-tube etc) and pediatric and patients. [facility] Temazepam 2018-05-03 01:37:00 No Notes: (Sa me As: Restoril) [facility] metoprolol extended release 2018-05-02 15:00:00 No Notes: (Same as: Toprol XL) May split tab, but do not crush. [facility] Plavix 2018-05-02 15:00:00 No Notes: (Same As: Plavix) [facility] Lisinopril 2018-05-02 15:00:00 No Notes: (Same as: Prinivil, Zestril) [facility] Folic Acid 2018-05-02 15:00:00 No 0.8 mg, 2 tab, Route: PO, Drug form: TAB, Daily, Dosing Weight 62.5, kg, Start date: 05/02/18 9:00:00 [employer], Duration: 30 day, Stop date: 05/31/18 9:00:00 [employer] [facility] Aspirin 81 MG Enteric Coated Tablet 2018-05-02 15:00:00 No Notes: Do not crush or chew. (Same As: Ecotrin) [facility] Acetaminophen 2018-05-02 14:31:00 No Notes: Do not exceed 4 gm/day. (Same as: Tylenol) [facility] Thyroxine 2018-05-02 12:30:00 No Notes: Take 1 hour before or 2 hours after meal; Enteral feeds may interefere with the absorption of this medication.(Same as:Levothroid, Synthroid) [facility] Eliquis 2018-05-02 03:00:00 No Notes: Same as: Eliquis [facility] atorvastatin 2018-05-02 03:00:00 No Notes: (Same as: Lipitor) [facility] pantoprazole 2018-05-01 22:30:00 No Notes: Tablet should not be chewed or crushed. (Same as: Protonix) [facility] Nitroglycerin 2018-05-01 17:32:00 No Notes: (Same as:Nitroquick, Nitrostat) "Do Not Crush" Sublingual tablet [facility] metoprolol 100 mg oral tablet, extended release 2018-05-01 13:21 :00 No 100 mg = 1 tab, PO, BID, 0 Refill(s) [facility] Folic Acid 2018-05-01 13:21:00 No 0 .8 mg, PO, Daily, 0 Refill(s) [facility] Fish Oil 500 mg oral capsule 2018-04-30 15:49:00 Yes 1,000 mg = 2 cap, PO, BID, 0 Refill(s) [facility] Esomeprazole 40 MG Enteric Coated Capsule 2018-04-30 15:49:00 No 40 mg = 1 cap, PO, Daily, # 30 cap, 0 Refill(s) [facility] lisinopril 5 mg oral tablet 2018-04-30 15:49:00 No 5 mg = 1 tab, PO, Daily, # 30 tab, 0 Refill(s) [facility] levothyroxine 50 mcg (0.05 mg) oral tablet 2018-04-30 15:49:00 No 50 microgram = 1 tab, PO, Daily, # 30 tab, 0 Refill(s) [facility] clopidogrel 75 mg oral tablet 2018-04-30 15:48:00 No 75 mg = 1 tab, PO, Daily, # 30 tab, 0 Refill(s) [facility] atorvastatin 40 mg oral tablet 2018-04-30 15:48:00 Yes 40 mg = 1 tab, PO, Bedtime, # 30 tab, 0 Refill(s) [facility] Aspirin 81 MG Enteric Coated Tablet 2018-04-30 15:48:00 No 81 mg = 1 tab, PO, Daily, # 90 tab, 3 Refill(s) [facility] Aspirin 81 MG Enteric Coated Tablet 2018-04-30 15:47:00 No 81 mg = 1 tab, PO, Daily, # 90 tab, 3 Refill(s) [facility] Amiodarone Hcl 200 Mg Tablet Amiodarone Hcl 200 Mg Tablet Y es 200 Daily [facility] Apixaban Apixaban Yes 2.5 Daily [facility] Atorvastatin Calcium (Lipitor) 40 Mg Tablet Atorvastat in Calcium (Lipitor) 40 Mg Tablet Yes 40 Every Evening [facility] Bumetanide 1 Mg Tablet Bumetanide 1 Mg Tablet Yes 1 Daily [facility] Clopidogrel Bisulfate (Plavix) 75 Mg Tablet Clopidogre l Bisulfate (Plavix) 75 Mg Tablet Yes 75 Daily [facility] Digoxin 125 Mcg Tablet Digoxin 125 Mcg Tablet Yes .125 Daily [facility] Folic Acid 0.8 Mg Tablet Folic Acid 0.8 Mg Tablet Yes 800 Every Evening [facility] Gabapentin 300 Mg Capsule Gabapentin 300 Mg Capsule Yes 300 Three Times A Day [facility] Levothyroxine Sodium (Levoxyl) 50 Mcg Tablet Levothyro xine Sodium (Levoxyl) 50 Mcg Tablet Yes 50 Every Morning C [facility] Lisinopril 10 Mg Tablet Lisinopril 10 Mg Tablet Yes 40 Daily [facility] Metoprolol Succinate 50 Mg Tab.er.24h Metoprolol Succinate 50 Mg Ta b.er.24h Yes 50 Bedtime [facility] Minocycline Hcl 50 Mg Capsule Minocycline Hcl 50 Mg Capsule Yes 100 Daily [facility] Mirabegron (Myrbetriq) 25 Mg Tab.er.24h Mirabegron (Myrbetri q) 25 Mg Tab.er.24h Yes 50 Daily [facility] Multivit With Calcium,Iron,Min (One-A-Day Women's) 1 E ach Tablet Multivit With Calcium,Iron,Min (One-A-Day Women's) 1 Each Tablet Yes 1 Daily [facility] [place]-3 Fatty Acids (Fish Oil) 300 Mg Capsule [place]-3 Fatty Acids (Fish Oil) 300 Mg Capsule Yes 1 Daily [facility] Pantoprazole Sodium (Protonix) 40 Mg Tablet. Pantopr azole Sodium (Protonix) 40 Mg Tablet. Yes 40 Daily [facility] Spironolactone 25 Mg Tablet Spironolactone 25 Mg Tablet Yes 25 Daily [facility] Tramadol Hcl (Ultram) 50 Mg Tablet Tramadol Hcl (Ultram) 50 Mg Tablet Yes 50 Every 8 Hours as needed for Moderate Pain (4-6) [facility] Trazodone Hcl 50 Mg Tablet Trazodone Hcl 50 Mg Tablet Yes 50 Three Times A Day [facility] Vit A,C & E/Lutein/Minerals (Ocuvite Tablet) 1 Each [place]let Vit A,C & E/Lutein/Minerals (Ocuvite Tablet) 1 Each Tablet Yes 1 Daily [facility] Aspirin 81 Mg Tab.chew, Aspirin 81 Mg Tab.chew, 2018-08-25 00:00 :00 No [facility] Esomeprazole Magnesium (Nexium) 40 Mg Capsule., 1 Ca p Oral Esomeprazole Magnesium (Nexium) 40 Mg Capsule., 1 Cap Oral 2018-08-25 00:00:00 No 1 Daily [facility] Lisinopril/Hydrochlorothiazide (Lisinopr il-Hctz 20-12.5 Mg Tab) 1 Each Tablet, 2 Tab Oral Lisinopril/Hydrochlorothiazide (Lisinopr il-Hctz 20-12.5 Mg Tab) 1 Each Tablet, 2 Tab Oral 2018-08-25 00:00:00 No 2 Twic e A Day [facility] Methocarbamol 750 Mg Tablet, 750 Mg Oral Methocarbamol 750 Mg Tablet, 750 Mg Oral 2018-08-25 00:00:00 No 750 Bedtime [facility] Metoprolol Succinate 50 Mg Tab.er.24h, 100 Mg Oral Met oprolol Succinate 50 Mg Tab.er.24h, 100 Mg Oral 2018-08-25 00:00:00 No 100 Daily [facility] Naproxen , 500 Mg Oral Naproxen , 500 Mg Oral 00:00:00 No 500 Bedtime [facility] Nisoldipine 25.5 Mg Tab.er.24h, Oral Nisoldipine 25.5 Mg Tab.e r.24h, Oral 2018-08-25 00:00:00 No Bedtime [facility] Temazepam 15 Mg Capsule, 30 Mg Oral Temazepam 15 Mg Capsule, 30 Mg Oral 2018-08-25 00:00:00 No 30 Bedtime [facility] True Biotic , 1 Cap Oral True Biotic , 1 Cap Oral 2018-08-25 00: 00:00 No 1 Daily [facility] Acetaminophen (Tylenol Arthritis) 650 Mg Tablet.sa, 65 0 Mg Oral Acetaminophen (Tylenol Arthritis) 650 Mg Tablet.sa, 650 Mg Oral 2018-08-03 00:00:00 No 650 Bedtime [facility] Metformin Hcl 500 Mg Tablet, 500 Mg Oral Metformin Hcl 500 Mg Tablet, 500 Mg Oral 2017-04-23 00:00:00 No 500 Twice A Day [facility] Metoprolol Succinate 50 Mg Tab.er.24h, 100 Mg Oral Met oprolol Succinate 50 Mg Tab.er.24h, 100 Mg Oral 2017-04-23 00:00:00 No 100 Bedtime [facility] Metoprolol Succinate 50 Mg Tab.er.24h, 50 Mg Oral Meto prolol Succinate 50 Mg Tab.er.24h, 50 Mg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 code = WBC) 7.8 K/mm3 4.5-12.5 N RED BLOOD CELL (test code = RBC) 3.94 mill/mm3 3.7-5.2 N HEMOGLOBIN (test code = HGB) 12.5 gram/dL 11.5-15.5 N HEMATOCRIT (test code = HCT) 37.8 % 36.0-46.0 N MEAN CELL VOLUME (test code = MCV) 95.9 fL 80-98 N MEAN CELL HGB (test code = MCH) 31.7 picogram 27.0-33.0 N MEAN CELL HGB CONCETRATION (test code = MCHC) 33.1 gram/dL 33.0-36. 0 N RED CELL DISTRIBUTION WIDTH (test code = RDW) 12.4 % 11.6-16. 2 N RED CELL DISTRIBUTION WIDTH SD (test code = RDW-SD) 43.8 fL 37 .0-51.0 N PLATELET COUNT (test code = PLT) 314 K/mm3 150-450 N MEAN PLATELET VOLUME (test code = MPV) 9.1 fL 6.7-11.0 N NEUTROPHIL % (test code = NT%) 67.7 % 39.0-69.0 N IMMATURE GRANULOCYTE % (test code = IG%) 1.3 % 0.0-5.0 N LYMPHOCYTE % (test code = LY%) 15.3 % 25.0-55.0 L MONOCYTE % (test code = MO%) 11.9 % 0.0-10.0 H EOSINOPHIL % (test code = EO%) 3.2 % 0.0-5.0 N BASOPHIL % (test code = BA%) 0.6 % 0.0-1.0 N NUCLEATED RBC % (test code = NRBC%) 0.0 % 0-0 N NEUTROPHIL # (test code = NT#) 5.25 K/mm3 1.8-7.7 N IMMATURE GRANULOCYTE # (test code = IG#) 0.10 x10 3/uL 0-0.03 H LYMPHOCYTE # (test code = LY#) 1.19 K/mm3 1.0-5.0 N MONOCYTE # (test code = MO#) 0.92 K/mm3 0-0.8 H EOSINOPHIL # (test code = EO#) 0.25 K/mm3 0.0-0.5 N BASOPHIL # (test code = BA#) 0.05 K/mm3 0.0-0.2 N NUCLEATED RBC # (test code = NRBC#) 0.00 K/mm3 0.0-0.1 N MANUAL DIFF REQUIRED (test code = MDIFF) NO [id number] 06:02:00* Test Item Value Reference Range Interpretation Comments GLUBED (test code = GLUBED) 160 mg/dL 74-106 H Performed by certified lease operator at [facility] [id number] 19:06:00* Test Item Value Reference Range Interpretation Comments GLUBED (test code = GLUBED) 157 mg/dL 74-106 H Performed by certified lease operator at [facility] [id number] 19:05:00* Test Item Value Reference Range Interpretation Comments GLUBED (test code = GLUBED) 222 mg/dL 74-106 H Performed by certified lease operator at [facility] [id number] 19:05:00* Test Item Value Reference Range Interpretation Comments GLUBED (test code = GLUBED) 117 mg/dL 74-106 H Performed by certified lease operator at [facility] [id number] 17:11:00* Test Item Value Reference Range Interpretation Comments GLUBED (test code = GLUBED) 201 mg/dL 74-106 H Performed by certified lease operator at [facility] CBC W/AUTO [id number] 07:12:00* Test Item Value Reference Range Interpretation Comments WHITE BLOOD CELL (test code = WBC) 6.4 K/mm3 4.5-12.5 N RED BLOOD CELL (test code = RBC) 3.99 mill/mm3 3.7-5.2 N HEMOGLOBIN (test code = HGB) 12.5 gram/dL 11.5-15.5 N HEMATOCRIT (test code = HCT) 37.2 % 36.0-46.0 N MEAN CELL VOLUME (test code = MCV) 93.2 fL 80-98 N MEAN CELL HGB (test code = MCH) 31.3 picogram 27.0-33.0 N MEAN CELL HGB CONCETRATION (test code = MCHC) 33.6 gram/dL 33.0-36. 0 N RED CELL DISTRIBUTION WIDTH (test code = RDW) 12.4 % 11.6-16. 2 N RED CELL DISTRIBUTION WIDTH SD (test code = RDW-SD) 42.0 fL 37 .0-51.0 N PLATELET COUNT (test code = PLT) 307 K/mm3 150-450 N MEAN PLATELET VOLUME (test code = MPV) 9.5 fL 6.7-11.0 N NEUTROPHIL % (test code = NT%) 67.7 % 39.0-69.0 N IMMATURE GRANULOCYTE % (test code = IG%) 0.8 % 0.0-5.0 N LYMPHOCYTE % (test code = LY%) 15.4 % 25.0-55.0 L MONOCYTE % (test code = MO%) 11.4 % 0.0-10.0 H EOSINOPHIL % (test code = EO%) 4.2 % 0.0-5.0 N BASOPHIL % (test code = BA%) 0.5 % 0.0-1.0 N NUCLEATED RBC % (test code = NRBC%) 0.0 % 0-0 N NEUTROPHIL # (test code = NT#) 4.35 K/mm3 1.8-7.7 N IMMATURE GRANULOCYTE # (test code = IG#) 0.05 x10 3/uL 0-0.03 H LYMPHOCYTE # (test code = LY#) 0.99 K/mm3 1.0-5.0 L MONOCYTE # (test code = MO#) 0.73 K/mm3 0-0.8 N EOSINOPHIL # (test code = EO#) 0.27 K/mm3 0.0-0.5 N BASOPHIL # (test code = BA#) 0.03 K/mm3 0.0-0.2 N NUCLEATED RBC # (test code = NRBC#) 0.00 K/mm3 0.0-0.1 N CBC W/AUTO [id number] 07:04:00* Test Item Value Reference Range Interpretation Comments WHITE BLOOD CELL (test code = WBC) K/mm3 4.5-12.5 RED BLOOD CELL (test code = RBC) mill/mm3 3.7-5.2 HEMOGLOBIN (test code = HGB) 12.5 gram/dL 11.5-15.5 N HEMATOCRIT (test code = HCT) 37.2 % 36.0-46.0 N MEAN CELL VOLUME (test code = MCV) fL 80-98 MEAN CELL HGB (test code = MCH) picogram 27.0-33.0 MEAN CELL HGB CONCETRATION (test code = MCHC) gram/dL 33.0-36. 0 RED CELL DISTRIBUTION WIDTH (test code = RDW) % 11.6-16. 2 RED CELL DISTRIBUTION WIDTH SD (test code = RDW-SD) fL 37 .0-51.0 PLATELET COUNT (test code = PLT) K/mm3 150-450 MEAN PLATELET VOLUME (test code = MPV) fL 6.7-11.0 NEUTROPHIL % (test code = NT%) % 39.0-69.0 IMMATURE GRANULOCYTE % (test code = IG%) % 0.0-5.0 LYMPHOCYTE % (test code = LY%) % 25.0-55.0 MONOCYTE % (test code = MO%) % 0.0-10.0 EOSINOPHIL % (test code = EO%) % 0.0-5.0 BASOPHIL % (test code = BA%) % 0.0-1.0 NEUTROPHIL # (test code = NT#) K/mm3 1.8-7.7 LYMPHOCYTE # (test code = LY#) K/mm3 1.0-5.0 MONOCYTE # (test code = MO#) K/mm3 0-0.8 EOSINOPHIL # (test code = EO#) K/mm3 0.0-0.5 BASOPHIL # (test code = BA#) K/mm3 0.0-0.2 COMPREHENSIVE METABOLIC [id number] 06:48:00* Test Item Value Reference Range Interpretation Comments SODIUM (test code = NA) 132 mmol/L 136-145 L POTASSIUM (test code = K) 3.8 mmol/L 3.5-5.1 N CHLORIDE (test code = CL) 94.0 mmol/L 98-107 L CARBON DIOXIDE (test code = CO2) 28.0 mmol/L 21-32 N ANION GAP (test code = GAP) 13.8 10-20 N GLUCOSE (test code = GLU) 113 mg/dL 74-106 H BLOOD UREA NITROGEN (test code = BUN) 56 mg/dL 7-18 H GLOMERULAR FILTRATION RATE (test code = GFR) 36 mL/min >=60 Estimated GFR by using Modified MDRD formula.Chronic kidney disease is defined as either kidney damageor GFR <60 mL/min/1.73 m2 for >3 months. CREATININE (test code = CREAT) 1.40 mg/dL 0.55-1.02 H Note change in reference range due to change in reagent. BUN/CREATININE RATIO (test code = BUN/CREA) 40.0 10-20 H TOTAL PROTEIN (test code = PROT) 7.5 gram/dL 6.4-8.2 N ALBUMIN (test code = ALB) 2.6 g/dL 3.4-5.0 L GLOBULIN (test code = GLOB) 4.9 gram/dL 2.7-4.2 H ALBUMIN/GLOBULIN RATIO (test code = A/G) 0.5 0.75-1.50 L CALCIUM (test code = CA) 9.2 mg/dL 8.5-10.1 N BILIRUBIN TOTAL (test code = BILT) 1.00 mg/dL 0.0-1.0 N SGOT/AST (test code = AST) 925 IUnit/L 15-37 H SGPT/ALT (test code = ALT) 1061 IUnit/L 12-78 H ALKALINE PHOSPHATASE TOTAL (test code = ALKP) 130 IUnit/L 45-117 H Note change in reference range due to change in reagent. CREATINE KINASE (CK)2019-03-22 06:48:00* Test Item Value Reference Range Interpretation Comments CREATINE KINASE (CK) (test code = CK) 50 IUnit/L 26-208 N COMPREHENSIVE METABOLIC [id number] 06:37:00* Test Item Value Reference Range Interpretation Comments SODIUM (test code = NA) 132 mmol/L 136-145 L POTASSIUM (test code = K) 3.8 mmol/L 3.5-5.1 N CHLORIDE (test code = CL) 94.0 mmol/L 98-107 L CARBON DIOXIDE (test code = CO2) mmol/L 21-32 ANION GAP (test code = GAP) 10-20 GLUCOSE (test code = GLU) mg/dL 74-106 BLOOD UREA NITROGEN (test code = BUN) mg/dL 7-18 GLOMERULAR FILTRATION RATE (test code = GFR) mL/min >=60 CREATININE (test code = CREAT) mg/dL 0.55-1.02 BUN/CREATININE RATIO (test code = BUN/CREA) 10-20 TOTAL PROTEIN (test code = PROT) gram/dL 6.4-8.2 ALBUMIN (test code = ALB) g/dL 3.4-5.0 GLOBULIN (test code = GLOB) gram/dL 2.7-4.2 ALBUMIN/GLOBULIN RATIO (test code = A/G) 0.75-1.50 CALCIUM (test code = CA) mg/dL 8.5-10.1 BILIRUBIN TOTAL (test code = BILT) mg/dL 0.0-1.0 SGOT/AST (test code = AST) IUnit/L 15-37 SGPT/ALT (test code = ALT) IUnit/L 12-78 ALKALINE PHOSPHATASE TOTAL (test code = ALKP) IUnit/L 45-117 CREATINE KINASE (CK)2019-03-22 06:37:00* Test Item Value Reference Range Interpretation Comments CREATINE KINASE (CK) (test code = CK) IUnit/L 26-208 [id number] 18:55:00* Test Item Value Reference Range Interpretation Comments GLUBED (test code = GLUBED) 180 mg/dL 74-106 H Performed by certified lease operator at [facility] [id number] 18:55:00* Test Item Value Reference Range Interpretation Comments GLUBED (test code = GLUBED) 185 mg/dL 74-106 H Performed by certified lease operator at [facility] [id number] 08:45:00* Test Item Value Reference Range Interpretation Comments GLUBED (test code = GLUBED) 96 mg/dL 74-106 N Performed by certified lease operator at [facility] COMPREHENSIVE METABOLIC [id number] 07:02:00* Test Item Value Reference Range Interpretation Comments SODIUM (test code = NA) 133 mmol/L 136-145 L POTASSIUM (test code = K) 3.9 mmol/L 3.5-5.1 N CHLORIDE (test code = CL) 94.0 mmol/L 98-107 L CARBON DIOXIDE (test code = CO2) 28.0 mmol/L 21-32 N ANION GAP (test code = GAP) 14.9 10-20 N GLUCOSE (test code = GLU) 95 mg/dL 74-106 N BLOOD UREA NITROGEN (test code = BUN) 53 mg/dL 7-18 H GLOMERULAR FILTRATION RATE (test code = GFR) 40 mL/min >=60 Estimated GFR by using Modified MDRD formula.Chronic kidney disease is defined as either kidney damageor GFR <60 mL/min/1.73 m2 for >3 months. CREATININE (test code = CREAT) 1.30 mg/dL 0.55-1.02 H Note change in reference range due to change in reagent. BUN/CREATININE RATIO (test code = BUN/CREA) 40.8 10-20 H TOTAL PROTEIN (test code = PROT) 7.4 gram/dL 6.4-8.2 N ALBUMIN (test code = ALB) 2.6 g/dL 3.4-5.0 L GLOBULIN (test code = GLOB) 4.8 gram/dL 2.7-4.2 H ALBUMIN/GLOBULIN RATIO (test code = A/G) 0.5 0.75-1.50 L CALCIUM (test code = CA) 9.1 mg/dL 8.5-10.1 N BILIRUBIN TOTAL (test code = BILT) 1.00 mg/dL 0.0-1.0 N SGOT/AST (test code = AST) 770 IUnit/L 15-37 H SGPT/ALT (test code = ALT) 837 IUnit/L 12-78 H ALKALINE PHOSPHATASE TOTAL (test code = ALKP) 114 IUnit/L 45-117 N Note change in reference range due to change in reagent. BILIRUBIN [id number] 07:02:00* Test Item Value Reference Range Interpretation Comments BILIRUBIN DIRECT (test code = BILD) 0.42 mg/dL 0.0-0.20 H COMPREHENSIVE METABOLIC [id number] 06:54:00* Test Item Value Reference Range Interpretation Comments SODIUM (test code = NA) 133 mmol/L 136-145 L POTASSIUM (test code = K) 3.9 mmol/L 3.5-5.1 N CHLORIDE (test code = CL) 94.0 mmol/L 98-107 L CARBON DIOXIDE (test code = CO2) mmol/L 21-32 ANION GAP (test code = GAP) 10-20 GLUCOSE (test code = GLU) mg/dL 74-106 BLOOD UREA NITROGEN (test code = BUN) mg/dL 7-18 GLOMERULAR FILTRATION RATE (test code = GFR) mL/min >=60 CREATININE (test code = CREAT) mg/dL 0.55-1.02 BUN/CREATININE RATIO (test code = BUN/CREA) 10-20 TOTAL PROTEIN (test code = PROT) gram/dL 6.4-8.2 ALBUMIN (test code = ALB) g/dL 3.4-5.0 GLOBULIN (test code = GLOB) gram/dL 2.7-4.2 ALBUMIN/GLOBULIN RATIO (test code = A/G) 0.75-1.50 CALCIUM (test code = CA) mg/dL 8.5-10.1 BILIRUBIN TOTAL (test code = BILT) mg/dL 0.0-1.0 SGOT/AST (test code = AST) IUnit/L 15-37 SGPT/ALT (test code = ALT) IUnit/L 12-78 ALKALINE PHOSPHATASE TOTAL (test code = ALKP) IUnit/L 45-117 BILIRUBIN [id number] 06:54:00* Test Item Value Reference Range Interpretation Comments BILIRUBIN DIRECT (test code = BILD) mg/dL 0.0-0.20 ACUTE HEPATITIS [id number] 06:09:00* Test Item Value Reference Range Interpretation Comments AB HEPATITIS A IGM (test code = HAVMAB) Negative Negative AG HEPAT B SURF (test code = HBSAG) Negative Negative HEPATITIS B CORE ANTIBODY,IGM (test code = HBCMAB) Negative Neg ative AB HEPATITIS C (test code = HCVAB) <0.1 0.0-0.9 INFCE Result Units: s/co ratio Negative: < 0.8 Indeterminate: 0.8 - 0.9 Positive: > 0.9 The CDC recommends that a positive HCV antibody result be followed up with a HCV Nucleic Acid Amplification test ([id number]).Performed At: [facility] [address] [id number] Vasyl Sun MD Ph:[phone] LCI4ML [id number] 21:28:00* Test Item Value Reference Range Interpretation Comments GLUBED (test code = GLUBED) 103 mg/dL 74-106 N [facility] [id number] 16:17:00* Test Item Value Reference Range Interpretation Comments GLUBED (test code = GLUBED) 173 mg/dL 74-106 H Performed by certified lease operator at [facility] COMPREHENSIVE METABOLIC [id number] 06:32:00* Test Item Value Reference Range Interpretation Comments SODIUM (test code = NA) 136 mmol/L 136-145 N POTASSIUM (test code = K) 4.0 mmol/L 3.5-5.1 N CHLORIDE (test code = CL) 97.0 mmol/L 98-107 L CARBON DIOXIDE (test code = CO2) 30.0 mmol/L 21-32 N ANION GAP (test code = GAP) 13.0 10-20 N GLUCOSE (test code = GLU) 119 mg/dL 74-106 H BLOOD UREA NITROGEN (test code = BUN) 47 mg/dL 7-18 H GLOMERULAR FILTRATION RATE (test code = GFR) 36 mL/min >=60 Estimated GFR by using Modified MDRD formula.Chronic kidney disease is defined as either kidney damageor GFR <60 mL/min/1.73 m2 for >3 months. CREATININE (test code = CREAT) 1.40 mg/dL 0.55-1.02 H Note change in reference range due to change in reagent. BUN/CREATININE RATIO (test code = BUN/CREA) 34.1 10-20 H TOTAL PROTEIN (test code = PROT) 7.6 gram/dL 6.4-8.2 N ALBUMIN (test code = ALB) 2.6 g/dL 3.4-5.0 L GLOBULIN (test code = GLOB) 5.0 gram/dL 2.7-4.2 H ALBUMIN/GLOBULIN RATIO (test code = A/G) 0.5 0.75-1.50 L CALCIUM (test code = CA) 9.1 mg/dL 8.5-10.1 N BILIRUBIN TOTAL (test code = BILT) 0.90 mg/dL 0.0-1.0 N SGOT/AST (test code = AST) 603 IUnit/L 15-37 H SGPT/ALT (test code = ALT) 624 IUnit/L 12-78 H ALKALINE PHOSPHATASE TOTAL (test code = ALKP) 103 IUnit/L 45-117 N Note change in reference range due to change in reagent. [id number] 06:16:00* Test Item Value Reference Range Interpretation Comments GLUBED (test code = GLUBED) 118 mg/dL 74-106 H Performed by certified lease operator at [facility] COMPREHENSIVE METABOLIC [id number] 06:16:00* Test Item Value Reference Range Interpretation Comments SODIUM (test code = NA) 136 mmol/L 136-145 N POTASSIUM (test code = K) 4.0 mmol/L 3.5-5.1 N CHLORIDE (test code = CL) 97.0 mmol/L 98-107 L CARBON DIOXIDE (test code = CO2) mmol/L 21-32 ANION GAP (test code = GAP) 10-20 GLUCOSE (test code = GLU) mg/dL 74-106 BLOOD UREA NITROGEN (test code = BUN) mg/dL 7-18 GLOMERULAR FILTRATION RATE (test code = GFR) mL/min >=60 CREATININE (test code = CREAT) mg/dL 0.55-1.02 BUN/CREATININE RATIO (test code = BUN/CREA) 10-20 TOTAL PROTEIN (test code = PROT) gram/dL 6.4-8.2 ALBUMIN (test code = ALB) g/dL 3.4-5.0 GLOBULIN (test code = GLOB) gram/dL 2.7-4.2 ALBUMIN/GLOBULIN RATIO (test code = A/G) 0.75-1.50 CALCIUM (test code = CA) mg/dL 8.5-10.1 BILIRUBIN TOTAL (test code = BILT) mg/dL 0.0-1.0 SGOT/AST (test code = AST) IUnit/L 15-37 SGPT/ALT (test code = ALT) IUnit/L 12-78 ALKALINE PHOSPHATASE TOTAL (test code = ALKP) IUnit/L 45-117 - US ABDOMEN [id number] 21:29:00 Name: MARCELLA PORTER [facility] : 1940 Age/S: 78 / F [address] [facility] Unit #: [id number] Loc: [facility] [place] [id number] Phys: Latrell Knapp MD Acct: [id number] Dis Date: Status: ADM IN PHONE #: [phone] Exam Date: 03/19/2019 1723 FAX #: [phone] Reason: INCREASED LIVER ENZYMES EXAMS: CPT CODE: [id number] US ABDOMEN LTD [id number] REASON FOR EXAM: INCREASED LIVER ENZYMES EXAM ORDER DATE: 03/19/2019 1:28 PM Ordering: Latrell Knapp MD Attending:Latrell Knapp MD Location: PROCEDURE: - US ABDOMEN LTD FINDINGS: The liver is nodular in contour. There is no evidence of focal mass identified. The pancreas is within normal limits. The right kidney measures 9.3 x 5 cm. There is no evidence of hydronephrosis. There is no evidence of nephrolithiasis. There is no evidence of renal mass. The patient is status post cholecystectomy. No evidence of gallbladder wall thickening or pericholecystic fluid. The common bile duct measures 0.4 cm . There is no evidence of ascites. The aorta and IVC are within n ormal limits. The portal vein is patent with hepatopetal flow IMPRESSION: Nodular contour liver suggestive of cirrhosis. Status p ost cholecystectomy. Electronically Signed by Oseas Vann on 2018 at 2128 Reported and signed by: Ramin Vann M.D. CC: Latrell Knapp MD Technologist: Cassie Galindo RDMS Trnscb Date/Time: 2018 (2128) [email or web address] Orig Print D/T: S: 03/19/2019 (2131 ) Probe: PAGE 1 Signed Report - US ABDOMEN [id number] 21:29:00 Name: MARCELLA PORTER [facility] : 1940 Age/S: 78 / F [address] Unit #: [id number] Loc: [place], [place] [address] Phys: Rob Knapp MD Acct: [id number] Di s Date: Status: ADM IN PHONE #: Exam Date: 03/19/2019 1723 FAX #: Reason: INCREASED LIVER ENZYMES EXAMS: CPT CODE: [id number] [place] D [id number] REASON FOR EXAM: INCREASED LIVER ENZYMES EXAM ORDER DATE: 03/19/2019 1:28 PM Ordering: Latrell Knapp MD Attending:Latrell Knapp MD Lo cation:VL PROCEDURE: - US ABDOMEN LTD FINDINGS: The liver is nodular in contour. There is no evidence of focal mass identifie d. The pancreas is within normal limits. The right kidney measure s 9.3 x 5 cm. There is no evidence of hydronephrosis. There is no evidence of nephrolithiasis. There is no evidence of renal mass. The patient is status post cholecystectomy. No evidence of gallbladder wall thickening or pericholecystic fluid. The common bile duct measures 0.4 cm . There is no evidence of ascites. The aorta and IVC are within n ormal limits. The portal vein is patent with hepatopetal flow IMPRESSION: Nodular contour liver suggestive of cirrhosis. Status p ost cholecystectomy. Electronically Signed by Oseas Vann on 2018 at 2128 Reported and signed by: Ramin Vann M.D. CC: Latrell Knapp MD Technologist: Cassie Galindo RDMS Trnscb Date/Time: 2018 (2128) [email or web address] Orig Print D/T: S: 03/19/2019 (1749 ) Probe: PAGE 1 Signed Report CREATINE KINASE (CK)2019-03-19 20:59:00* Test Item Value Reference Range Interpretation Comments CREATINE KINASE (CK) (test code = CK) 48 IUnit/L 26-208 N [id number] 20:18:00* Test Item Value Reference Range Interpretation Comments GLUBED (test code = GLUBED) 158 mg/dL 74-106 H Performed by certified lease operator at [facility] [id number] 18:11:00* Test Item Value Reference Range Interpretation Comments GLUBED (test code = GLUBED) 134 mg/dL 74-106 H Performed by certified lease operator at [facility] [id number] 13:08:00* Test Item Value Reference Range Interpretation Comments GLUBED (test code = GLUBED) 183 mg/dL 74-106 H Performed by certified lease operator at [facility] COMPREHENSIVE METABOLIC [id number] 11:33:00* Test Item Value Reference Range Interpretation Comments SODIUM (test code = NA) 136 mmol/L 136-145 N POTASSIUM (test code = K) 4.0 mmol/L 3.5-5.1 N CHLORIDE (test code = CL) 99.0 mmol/L 98-107 N CARBON DIOXIDE (test code = CO2) 26.0 mmol/L 21-32 N ANION GAP (test code = GAP) 15.0 10-20 N GLUCOSE (test code = GLU) 191 mg/dL 74-106 H BLOOD UREA NITROGEN (test code = BUN) 43 mg/dL 7-18 H GLOMERULAR FILTRATION RATE (test code = GFR) 36 mL/min >=60 Estimated GFR by using Modified MDRD formula.Chronic kidney disease is defined as either kidney damageor GFR <60 mL/min/1.73 m2 for >3 months. CREATININE (test code = CREAT) 1.40 mg/dL 0.55-1.02 H Note change in reference range due to change in reagent. BUN/CREATININE RATIO (test code = BUN/CREA) 31.9 10-20 H TOTAL PROTEIN (test code = PROT) 6.4 gram/dL 6.4-8.2 N ALBUMIN (test code = ALB) 2.6 g/dL 3.4-5.0 L GLOBULIN (test code = GLOB) 3.8 gram/dL 2.7-4.2 N ALBUMIN/GLOBULIN RATIO (test code = A/G) 0.7 0.75-1.50 L CALCIUM (test code = CA) 8.4 mg/dL 8.5-10.1 L BILIRUBIN TOTAL (test code = BILT) 0.80 mg/dL 0.0-1.0 N SGOT/AST (test code = AST) 481 IUnit/L 15-37 H SGPT/ALT (test code = ALT) 473 IUnit/L 12-78 H ALKALINE PHOSPHATASE TOTAL (test code = ALKP) 92 IUnit/L 45-117 N Note change in reference range due to change in reagent. COMPREHENSIVE METABOLIC [id number] 11:23:00* Test Item Value Reference Range Interpretation Comments SODIUM (test code = NA) 136 mmol/L 136-145 N POTASSIUM (test code = K) 4.0 mmol/L 3.5-5.1 N CHLORIDE (test code = CL) 99.0 mmol/L 98-107 N CARBON DIOXIDE (test code = CO2) mmol/L 21-32 ANION GAP (test code = GAP) 10-20 GLUCOSE (test code = GLU) mg/dL 74-106 BLOOD UREA NITROGEN (test code = BUN) mg/dL 7-18 GLOMERULAR FILTRATION RATE (test code = GFR) mL/min >=60 CREATININE (test code = CREAT) mg/dL 0.55-1.02 BUN/CREATININE RATIO (test code = BUN/CREA) 10-20 TOTAL PROTEIN (test code = PROT) gram/dL 6.4-8.2 ALBUMIN (test code = ALB) g/dL 3.4-5.0 GLOBULIN (test code = GLOB) gram/dL 2.7-4.2 ALBUMIN/GLOBULIN RATIO (test code = A/G) 0.75-1.50 CALCIUM (test code = CA) mg/dL 8.5-10.1 BILIRUBIN TOTAL (test code = BILT) mg/dL 0.0-1.0 SGOT/AST (test code = AST) IUnit/L 15-37 SGPT/ALT (test code = ALT) IUnit/L 12-78 ALKALINE PHOSPHATASE TOTAL (test code = ALKP) IUnit/L 45-117 CBC W/AUTO [id number] 10:53:00* Test Item Value Reference Range Interpretation Comments WHITE BLOOD CELL (test code = WBC) 7.8 K/mm3 4.5-12.5 N RED BLOOD CELL (test code = RBC) 3.62 mill/mm3 3.7-5.2 L HEMOGLOBIN (test code = HGB) 11.7 gram/dL 11.5-15.5 N HEMATOCRIT (test code = HCT) 34.5 % 36.0-46.0 L MEAN CELL VOLUME (test code = MCV) 95.3 fL 80-98 N MEAN CELL HGB (test code = MCH) 32.3 picogram 27.0-33.0 N MEAN CELL HGB CONCETRATION (test code = MCHC) 33.9 gram/dL 33.0-36. 0 N RED CELL DISTRIBUTION WIDTH (test code = RDW) 12.7 % 11.6-16. 2 N RED CELL DISTRIBUTION WIDTH SD (test code = RDW-SD) 43.7 fL 37 .0-51.0 N PLATELET COUNT (test code = PLT) 249 K/mm3 150-450 N MEAN PLATELET VOLUME (test code = MPV) 9.8 fL 6.7-11.0 N NEUTROPHIL % (test code = NT%) 77.7 % 39.0-69.0 H IMMATURE GRANULOCYTE % (test code = IG%) 0.5 % 0.0-5.0 N LYMPHOCYTE % (test code = LY%) 10.2 % 25.0-55.0 L MONOCYTE % (test code = MO%) 8.4 % 0.0-10.0 N EOSINOPHIL % (test code = EO%) 2.7 % 0.0-5.0 N BASOPHIL % (test code = BA%) 0.5 % 0.0-1.0 N NUCLEATED RBC % (test code = NRBC%) 0.0 % 0-0 N NEUTROPHIL # (test code = NT#) 6.09 K/mm3 1.8-7.7 N IMMATURE GRANULOCYTE # (test code = IG#) 0.04 x10 3/uL 0-0.03 H LYMPHOCYTE # (test code = LY#) 0.80 K/mm3 1.0-5.0 L MONOCYTE # (test code = MO#) 0.66 K/mm3 0-0.8 N EOSINOPHIL # (test code = EO#) 0.21 K/mm3 0.0-0.5 N BASOPHIL # (test code = BA#) 0.04 K/mm3 0.0-0.2 N NUCLEATED RBC # (test code = NRBC#) 0.00 K/mm3 0.0-0.1 N CBC W/AUTO [id number] 10:50:00* Test Item Value Reference Range Interpretation Comments WHITE BLOOD CELL (test code = WBC) K/mm3 4.5-12.5 RED BLOOD CELL (test code = RBC) mill/mm3 3.7-5.2 HEMOGLOBIN (test code = HGB) 11.7 gram/dL 11.5-15.5 N HEMATOCRIT (test code = HCT) % 36.0-46.0 MEAN CELL VOLUME (test code = MCV) fL 80-98 MEAN CELL HGB (test code = MCH) picogram 27.0-33.0 MEAN CELL HGB CONCETRATION (test code = MCHC) gram/dL 33.0-36. 0 RED CELL DISTRIBUTION WIDTH (test code = RDW) % 11.6-16. 2 RED CELL DISTRIBUTION WIDTH SD (test code = RDW-SD) fL 37 .0-51.0 PLATELET COUNT (test code = PLT) K/mm3 150-450 MEAN PLATELET VOLUME (test code = MPV) fL 6.7-11.0 NEUTROPHIL % (test code = NT%) % 39.0-69.0 IMMATURE GRANULOCYTE % (test code = IG%) % 0.0-5.0 LYMPHOCYTE % (test code = LY%) % 25.0-55.0 MONOCYTE % (test code = MO%) % 0.0-10.0 EOSINOPHIL % (test code = EO%) % 0.0-5.0 BASOPHIL % (test code = BA%) % 0.0-1.0 NEUTROPHIL # (test code = NT#) K/mm3 1.8-7.7 LYMPHOCYTE # (test code = LY#) K/mm3 1.0-5.0 MONOCYTE # (test code = MO#) K/mm3 0-0.8 EOSINOPHIL # (test code = EO#) K/mm3 0.0-0.5 BASOPHIL # (test code = BA#) K/mm3 0.0-0.2 [id number] 07:10:00* Test Item Value Reference Range Interpretation Comments GLUBED (test code = GLUBED) 117 mg/dL 74-106 H [facility] [id number] 21:24:00* Test Item Value Reference Range Interpretation Comments GLUBED (test code = GLUBED) 215 mg/dL 74-106 H Performed by certified lease operator at [facility] [id number] 16:55:00* Test Item Value Reference Range Interpretation Comments GLUBED (test code = GLUBED) 150 mg/dL 74-106 H Performed by certified lease operator at [facility] [id number] 16:55:00* Test Item Value Reference Range Interpretation Comments GLUBED (test code = GLUBED) 176 mg/dL 74-106 H Performed by certified lease operator at [facility] COMPREHENSIVE METABOLIC [id number] 08:23:00* Test Item Value Reference Range Interpretation Comments SODIUM (test code = NA) 135 mmol/L 136-145 L POTASSIUM (test code = K) 3.9 mmol/L 3.5-5.1 N CHLORIDE (test code = CL) 100.0 mmol/L 98-107 N CARBON DIOXIDE (test code = CO2) 28.0 mmol/L 21-32 N ANION GAP (test code = GAP) 10.9 10-20 N GLUCOSE (test code = GLU) 113 mg/dL 74-106 H BLOOD UREA NITROGEN (test code = BUN) 41 mg/dL 7-18 H GLOMERULAR FILTRATION RATE (test code = GFR) 40 mL/min >=60 Estimated GFR by using Modified MDRD formula.Chronic kidney disease is defined as either kidney damageor GFR <60 mL/min/1.73 m2 for >3 months. CREATININE (test code = CREAT) 1.30 mg/dL 0.55-1.02 H Note change in reference range due to change in reagent. BUN/CREATININE RATIO (test code = BUN/CREA) 31.3 10-20 H TOTAL PROTEIN (test code = PROT) 6.9 gram/dL 6.4-8.2 N ALBUMIN (test code = ALB) 2.6 g/dL 3.4-5.0 L GLOBULIN (test code = GLOB) 4.3 gram/dL 2.7-4.2 H ALBUMIN/GLOBULIN RATIO (test code = A/G) 0.6 0.75-1.50 L CALCIUM (test code = CA) 8.7 mg/dL 8.5-10.1 N BILIRUBIN TOTAL (test code = BILT) 0.90 mg/dL 0.0-1.0 N SGOT/AST (test code = AST) 218 IUnit/L 15-37 H SGPT/ALT (test code = ALT) 239 IUnit/L 12-78 H ALKALINE PHOSPHATASE TOTAL (test code = ALKP) 76 IUnit/L 45-117 N Note change in reference range due to change in reagent. [id number] 08:23:00* Test Item Value Reference Range Interpretation Comments MAGNESIUM (test code = MAG) 1.8 mg/dL 1.8-2.4 N COMPREHENSIVE METABOLIC [id number] 08:11:00* Test Item Value Reference Range Interpretation Comments SODIUM (test code = NA) 135 mmol/L 136-145 L POTASSIUM (test code = K) 3.9 mmol/L 3.5-5.1 N CHLORIDE (test code = CL) 100.0 mmol/L 98-107 N CARBON DIOXIDE (test code = CO2) mmol/L 21-32 ANION GAP (test code = GAP) 10-20 GLUCOSE (test code = GLU) mg/dL 74-106 BLOOD UREA NITROGEN (test code = BUN) mg/dL 7-18 GLOMERULAR FILTRATION RATE (test code = GFR) mL/min >=60 CREATININE (test code = CREAT) mg/dL 0.55-1.02 BUN/CREATININE RATIO (test code = BUN/CREA) 10-20 TOTAL PROTEIN (test code = PROT) gram/dL 6.4-8.2 ALBUMIN (test code = ALB) g/dL 3.4-5.0 GLOBULIN (test code = GLOB) gram/dL 2.7-4.2 ALBUMIN/GLOBULIN RATIO (test code = A/G) 0.75-1.50 CALCIUM (test code = CA) mg/dL 8.5-10.1 BILIRUBIN TOTAL (test code = BILT) mg/dL 0.0-1.0 SGOT/AST (test code = AST) IUnit/L 15-37 SGPT/ALT (test code = ALT) IUnit/L 12-78 ALKALINE PHOSPHATASE TOTAL (test code = ALKP) IUnit/L 45-117 [id number] 08:11:00* Test Item Value Reference Range Interpretation Comments MAGNESIUM (test code = MAG) mg/dL 1.8-2.4 CBC W/AUTO [id number] 07:51:00* Test Item Value Reference Range Interpretation Comments WHITE BLOOD CELL (test code = WBC) 10.3 K/mm3 4.5-12.5 N RED BLOOD CELL (test code = RBC) 3.43 mill/mm3 3.7-5.2 L HEMOGLOBIN (test code = HGB) 10.8 gram/dL 11.5-15.5 L HEMATOCRIT (test code = HCT) 32.6 % 36.0-46.0 L MEAN CELL VOLUME (test code = MCV) 95.0 fL 80-98 N MEAN CELL HGB (test code = MCH) 31.5 picogram 27.0-33.0 N MEAN CELL HGB CONCETRATION (test code = MCHC) 33.1 gram/dL 33.0-36. 0 N RED CELL DISTRIBUTION WIDTH (test code = RDW) 12.6 % 11.6-16. 2 N RED CELL DISTRIBUTION WIDTH SD (test code = RDW-SD) 43.9 fL 37 .0-51.0 N PLATELET COUNT (test code = PLT) 218 K/mm3 150-450 N MEAN PLATELET VOLUME (test code = MPV) 10.0 fL 6.7-11.0 N NEUTROPHIL % (test code = NT%) 76.6 % 39.0-69.0 H IMMATURE GRANULOCYTE % (test code = IG%) 0.5 % 0.0-5.0 N LYMPHOCYTE % (test code = LY%) 13.0 % 25.0-55.0 L MONOCYTE % (test code = MO%) 8.3 % 0.0-10.0 N EOSINOPHIL % (test code = EO%) 1.2 % 0.0-5.0 N BASOPHIL % (test code = BA%) 0.4 % 0.0-1.0 N NUCLEATED RBC % (test code = NRBC%) 0.0 % 0-0 N NEUTROPHIL # (test code = NT#) 7.87 K/mm3 1.8-7.7 H IMMATURE GRANULOCYTE # (test code = IG#) 0.05 x10 3/uL 0-0.03 H LYMPHOCYTE # (test code = LY#) 1.34 K/mm3 1.0-5.0 N MONOCYTE # (test code = MO#) 0.85 K/mm3 0-0.8 H EOSINOPHIL # (test code = EO#) 0.12 K/mm3 0.0-0.5 N BASOPHIL # (test code = BA#) 0.04 K/mm3 0.0-0.2 N NUCLEATED RBC # (test code = NRBC#) 0.00 K/mm3 0.0-0.1 N [id number] 06:47:00* Test Item Value Reference Range Interpretation Comments GLUBED (test code = GLUBED) 111 mg/dL 74-106 H Performed by certified lease operator at [facility] - XR CHEST 1 [id number] 21:23:00 FAX: Latrell Jeffers MD [phone] [place]: St: ADM Name: Javi CAGEMARCELLA CAMERON [facility] : [birth year] Age/S: 78/F [address] [facility] Unit #: [id number] Loc: V.[address] [place] [address] Phys: Latrell Knapp MD Acct: [id number] Dis Date: Status: ADM IN PHONE #: [phone] Exam Date: 03/17/20192058 FAX #: [phone] Reason: TEMP EXAMS: CPT CODE: [id number] XR CHEST 1 V 85407 EXAM: Chest x-ray, one view; INFORMATION: Status post fall; IMPRESSION: 1. N o significant change compared with a study from March 14, 2019; mild right basilar atelectatic changes. 2. Otherwise, no evidence of active c ardiopulmonary disease. 3. No evidence of osseous trauma. Location code: [facility] at 3 Reported and signed by: Peewee Mendoza M.D. CC: Latrell Knapp MD Technologis t: GERTRUDE QuesadaR Trnscrd Date/Time/By: 03/17/2019 (2122) : By: KirstyW Orig Print D/T: S: 03/17/2019 (2125) PAGE 1 Signed Report - XR CHEST 1 [id number] 21:23:00 FAX: Latrell Jeffers MD [phone] [place]: St: ADM Name: MARCELLA VERNON [facility] : [birth year] Age/S: 78/F [address] [facility] Unit #: [id number] Loc: [place] [address] Phys: Latrell Knapp MD Acct: [id number] Dis Date: Status: ADM IN PHONE #: [phone] Exam Date: 03/17/20192058 FAX #: [phone] Reason: TEMP EXAMS: CPT CODE: [id number] XR CHEST 1 V 10419 EXAM: Chest x-ray, one view; INFORMATION: Status post fall; IMPRESSION: 1. N o significant change compared with a study from March 14, 2019; mild right basilar atelectatic changes. 2. Otherwise, no evidence of active c ardiopulmonary disease. 3. No evidence of osseous trauma. Location code: [facility] at 2123 Reported and signed by: Peeewe Mendoza M.D. CC: Latrell Knapp MD Technologis t: RT Sangita(R Trnscrd Date/Time/By: 03/17/2019 (2122) : By: Pramod Orig Print D/T: S: 03/17/2019 (2125) PAGE 1 Signed Report [id number] 21:02:00* Test Item Value Reference Range Interpretation Comments GLUBED (test code = GLUBED) 177 mg/dL 74-106 H [facility] [id number] 16:28:00* Test Item Value Reference Range Interpretation Comments GLUBED (test code = GLUBED) 114 mg/dL 74-106 H Performed by certified lease operator at [facility] URINALYSIS [id number] 15:47:00* Test Item Value Reference Range Interpretation Comments UA COLOR (test code = COLU) Light-Yellow YELLOW UA APPEARANCE (test code = APPU) CLEAR CLEAR UA GLUCOSE DIPSTICK (test code = DGLUU) NEGATIVE mg/dL NEGATIVE UA BILIRUBIN DIPSTICK (test code = BILU) NEGATIVE mg/dL NEGATIVE UA KETONE DIPSTICK (test code = KETU) NEGATIVE mg/dL NEGATIVE UA SPECIFIC GRAVITY (test code = SGU) 1.011 1.001-1.035 UA BLOOD DIPSTICK (test code = DONTA) Negative mg/dL NEGATIVE UA PH DIPSTICK (test code = JOSE MARTIN) 5.0 5.0-8.0 UA PROTEIN DIPSTICK (test code = PROU) NEGATIVE mg/dL NEGATIVE UA UROBILINIOGEN DIPSTICK (test code = URO) Normal mg/dL NEGATIVE UA NITRITE DIPSTICK (test code = RADHA) NEGATIVE NEGATIVE UA LEUKOCYTE ESTERASE W REFLEX (test code = LEUUR) NEGATIVE John/uL NEGATIVE UA WBC (test code = WBCU) 0-5 per HPF 0-5 UA RBC (test code = RBCU) 0-2 #/HPF 0-5 UA EPITHELIAL CELLS (test code = EPIU) FEW per HPF FEW UA BACTERIA (test code = BACU) NONE SEEN #/HPF NONE UA MUCUS (test code = MUCU) FEW #/LPF FEW Urine Source? [id number] 12:55:00* Test Item Value Reference Range Interpretation Comments GLUBED (test code = GLUBED) 163 mg/dL 74-106 H Performed by certified lease operator at [facility] [id number] 06:25:00* Test Item Value Reference Range Interpretation Comments GLUBED (test code = GLUBED) 113 mg/dL 74-106 H Performed by certified lease operator at [facility] [id number] 21:00:00* Test Item Value Reference Range Interpretation Comments GLUBED (test code = GLUBED) 153 mg/dL 74-106 H Performed by certified lease operator at [facility] [id number] 17:14:00* Test Item Value Reference Range Interpretation Comments GLUBED (test code = GLUBED) 147 mg/dL 74-106 H Performed by certified lease operator at [facility] [id number] 11:51:00* Test Item Value Reference Range Interpretation Comments GLUBED (test code = GLUBED) 149 mg/dL 74-106 H Performed by certified lease operator at [facility] BASIC METABOLIC [id number] 06:53:00* Test Item Value Reference Range Interpretation Comments SODIUM (test code = NA) 138 mmol/L 136-145 N POTASSIUM (test code = K) 4.3 mmol/L 3.5-5.1 N CHLORIDE (test code = CL) 105.0 mmol/L 98-107 N CARBON DIOXIDE (test code = CO2) 27.0 mmol/L 21-32 N ANION GAP (test code = GAP) 10.3 10-20 N GLUCOSE (test code = GLU) 134 mg/dL 74-106 H BLOOD UREA NITROGEN (test code = BUN) 44 mg/dL 7-18 H GLOMERULAR FILTRATION RATE (test code = GFR) 40 mL/min >=60 Estimated GFR by using Modified MDRD formula.Chronic kidney disease is defined as either kidney damageor GFR <60 mL/min/1.73 m2 for >3 months. CREATININE (test code = CREAT) 1.30 mg/dL 0.55-1.02 H Note change in reference range due to change in reagent. BUN/CREATININE RATIO (test code = BUN/CREA) 33.8 10-20 H CALCIUM (test code = CA) 8.6 mg/dL 8.5-10.1 N BASIC METABOLIC [id number] 06:46:00* Test Item Value Reference Range Interpretation Comments SODIUM (test code = NA) 138 mmol/L 136-145 N POTASSIUM (test code = K) 4.3 mmol/L 3.5-5.1 N CHLORIDE (test code = CL) 105.0 mmol/L 98-107 N CARBON DIOXIDE (test code = CO2) mmol/L 21-32 ANION GAP (test code = GAP) 10-20 GLUCOSE (test code = GLU) mg/dL 74-106 BLOOD UREA NITROGEN (test code = BUN) mg/dL 7-18 GLOMERULAR FILTRATION RATE (test code = GFR) mL/min >=60 CREATININE (test code = CREAT) mg/dL 0.55-1.02 BUN/CREATININE RATIO (test code = BUN/CREA) 10-20 CALCIUM (test code = CA) mg/dL 8.5-10.1 [id number] 06:09:00* Test Item Value Reference Range Interpretation Comments GLUBED (test code = GLUBED) 142 mg/dL 74-106 H Performed by certified lease operator at [facility] CBC W/AUTO [id number] 06:03:00* Test Item Value Reference Range Interpretation Comments WHITE BLOOD CELL (test code = WBC) 8.2 K/mm3 4.5-12.5 N RED BLOOD CELL (test code = RBC) 3.36 mill/mm3 3.7-5.2 L HEMOGLOBIN (test code = HGB) 10.9 gram/dL 11.5-15.5 L HEMATOCRIT (test code = HCT) 33.9 % 36.0-46.0 L MEAN CELL VOLUME (test code = MCV) 100.9 fL 80-98 H MEAN CELL HGB (test code = MCH) 32.4 picogram 27.0-33.0 N MEAN CELL HGB CONCETRATION (test code = MCHC) 32.2 gram/dL 33.0-36. 0 L RED CELL DISTRIBUTION WIDTH (test code = RDW) 12.7 % 11.6-16. 2 N RED CELL DISTRIBUTION WIDTH SD (test code = RDW-SD) 46.3 fL 37 .0-51.0 N PLATELET COUNT (test code = PLT) 205 K/mm3 150-450 N MEAN PLATELET VOLUME (test code = MPV) 9.6 fL 6.7-11.0 N NEUTROPHIL % (test code = NT%) 73.1 % 39.0-69.0 H IMMATURE GRANULOCYTE % (test code = IG%) 0.4 % 0.0-5.0 N LYMPHOCYTE % (test code = LY%) 15.5 % 25.0-55.0 L MONOCYTE % (test code = MO%) 9.1 % 0.0-10.0 N EOSINOPHIL % (test code = EO%) 1.5 % 0.0-5.0 N BASOPHIL % (test code = BA%) 0.4 % 0.0-1.0 N NUCLEATED RBC % (test code = NRBC%) 0.0 % 0-0 N NEUTROPHIL # (test code = NT#) 5.97 K/mm3 1.8-7.7 N IMMATURE GRANULOCYTE # (test code = IG#) 0.03 x10 3/uL 0-0.03 N LYMPHOCYTE # (test code = LY#) 1.26 K/mm3 1.0-5.0 N MONOCYTE # (test code = MO#) 0.74 K/mm3 0-0.8 N EOSINOPHIL # (test code = EO#) 0.12 K/mm3 0.0-0.5 N BASOPHIL # (test code = BA#) 0.03 K/mm3 0.0-0.2 N NUCLEATED RBC # (test code = NRBC#) 0.00 K/mm3 0.0-0.1 N MANUAL DIFF REQUIRED (test code = MDIFF) NO [id number] 21:11:00* Test Item Value Reference Range Interpretation Comments GLUBED (test code = GLUBED) 141 mg/dL 74-106 H Performed by certified lease operator at [facility] [id number] 18:25:00* Test Item Value Reference Range Interpretation Comments GLUBED (test code = GLUBED) 172 mg/dL 74-106 H Performed by certified lease operator at [facility] - CT LOWER EXTRM W/O C [id number] 14:15:00 Name: MARCELLA PORTER [facility] : 1940 Age/S: 78 / F [address] Unit #: [id number] Loc: [place], [place] [address] Phys: Justyn Starkey MD Acct: [id number] Dis Date: Status: ADM IN PHONE #: [phone] Exam Date: 03/15/2019 1405 FAX #: [phone] Reason: RIGHT ANKLE PAIN, FELL AT HOME EXAMS: CPT CODE: [id number] [place] LOWER EXTRM W/[place] [address] HISTORY: Fall and pain. COMPARISON: X-ray from previous day. Location: TH. CT right ankle without contrast: Automated exposure control. No osteochondral lesion of the talus. Ankle mortise is preserved. Chondrocalcinosis. No tarsal coalition is noted. Mildly narrowed intert arsal joint spaces. Vascular calcifications. No ankle joint fluid. Plan tar calcaneal enthesophyte. Mild osteopenia. No evidence of entrapment o f the flexor of the peroneus tendons. IMPRESSION: No acute fracture or dislocation. Ankle mortise is preserved. DJD. No osteochondral lesions. No joint fluid. Correlate with MRI scan if there is continued pain to evaluate for ligamentous and/or tendinous in jury or bone contusion. Electronically Signed by Oseas wall 03/15/2019 at 1415 Reported and signed by: Matthew flores M.D. CC: Justyn Starkey; Latrell Knapp MD Technologist:María Elena GU(R),CT CTDI: DLP: Trns cb Date/Time: 03/15/2019 (1415) [email or web address] Orig Print D/T: S: 03/15/2019 (5879) PAGE 1 Signed Report - CT LOWER EXTRM W/O C [id number] 14:15:00 Name: MARCELLA PORTER [facility] : 1940 Age/S: 78 / F [address] [facility] Unit #: [id number] Loc: [place], [place] [address] Phys: Johanna Starkey am, MD Acct: [id number] Di s Date: Status: ADM IN PHONE #: Exam Date: 03/15/2019 1405 FAX #: [phone] Reason: RIGHT ANKLE PAIN, FELL AT HOME EXAMS: CPT CODE: [id number] [place] LOWER EXTR M W/[place] [address] HISTORY: Fall and pain. COMPARISON: X-ray from previous day. Location: TH. CT right ankle without contrast: Automated exposure control. No osteochondral lesion of the talus. Ankle mortise is preserved. Chondrocalcinosis. No tarsal coalition is noted. Mildly narrowed intert arsal joint spaces. Vascular calcifications. No ankle joint fluid. Plan tar calcaneal enthesophyte. Mild osteopenia. No evidence of entrapment o f the flexor of the peroneus tendons. IMPRESSION: No acute fracture or dislocation. Ankle mortise is preserved. DJD. No osteochondral lesions. No joint fluid. Correlate with MRI scan if there is continued pain to evaluate for ligamentous and/or tendinous in jury or bone contusion. Electronically Signed by Oseas wall 03/15/2019 at 1415 Reported and signed by: Matthew flores M.D. CC: Justyn Starkey; Latrell Knapp MD Technologist:María Elena Mccarty RT(R),CT CTDI: DLP: Trns cb Date/Time: 03/15/2019 (141) [email or web address] Orig Print D/T: S: 03/15/2019 (0992) PAGE 1 Signed Report [id number] 12:42:00* Test Item Value Reference Range Interpretation Comments GLUBED (test code = GLUBED) 180 mg/dL 74-106 H Performed by certified lease operator at [facility] [id number] 06:25:00* Test Item Value Reference Range Interpretation Comments GLUBED (test code = GLUBED) 121 mg/dL 74-106 H Performed by certified lease operator at [facility] BASIC METABOLIC [id number] 20:49:00* Test Item Value Reference Range Interpretation Comments SODIUM (test code = NA) 138 mmol/L 136-145 N POTASSIUM (test code = K) 4.0 mmol/L 3.5-5.1 N CHLORIDE (test code = CL) 104.0 mmol/L 98-107 N CARBON DIOXIDE (test code = CO2) 25.0 mmol/L 21-32 N ANION GAP (test code = GAP) 13.0 10-20 N GLUCOSE (test code = GLU) 131 mg/dL 74-106 H BLOOD UREA NITROGEN (test code = BUN) 58 mg/dL 7-18 H GLOMERULAR FILTRATION RATE (test code = GFR) 34 mL/min >=60 Estimated GFR by using Modified MDRD formula.Chronic kidney disease is defined as either kidney damageor GFR <60 mL/min/1.73 m2 for >3 months. CREATININE (test code = CREAT) 1.50 mg/dL 0.55-1.02 H Note change in reference range due to change in reagent. BUN/CREATININE RATIO (test code = BUN/CREA) 39.7 10-20 H CALCIUM (test code = CA) 8.9 mg/dL 8.5-10.1 N HEPATIC FUNCTION [id number] 20:49:00* Test Item Value Reference Range Interpretation Comments TOTAL PROTEIN (test code = PROT) 7.4 gram/dL 6.4-8.2 N ALBUMIN (test code = ALB) 3.4 g/dL 3.4-5.0 N GLOBULIN (test code = GLOB) 4.0 gram/dL 2.7-4.2 N ALBUMIN/GLOBULIN RATIO (test code = A/G) 0.8 0.75-1.50 N BILIRUBIN TOTAL (test code = BILT) 0.50 mg/dL 0.0-1.0 N BILIRUBIN DIRECT (test code = BILD) 0.15 mg/dL 0.0-0.20 N SGOT/AST (test code = AST) 43 IUnit/L 15-37 H SGPT/ALT (test code = ALT) 81 IUnit/L 12-78 H ALKALINE PHOSPHATASE TOTAL (test code = ALKP) 81 IUnit/L 45-117 N Note change in reference range due to change in reagent. [id number] 20:49:00* Test Item Value Reference Range Interpretation Comments LIPASE (test code = LIP) 146 U/L 73.0-393.0 N [id number] 20:49:00* Test Item Value Reference Range Interpretation Comments TROPONIN-I (test code = TROPI) <0.015 ng/mL 0-0.045 N PROTHROMBIN [id number] 20:44:00* Test Item Value Reference Range Interpretation Comments PROTHROMBIN TIME PATIENT (test code = PTP) 13.7 seconds 9.0-14.0 N INTERNATIONAL NORMAL RATIO (test code = INR) 1.2 0.8-1.2 N The therapeutic range for oral anticoagulant therapy formost indications is an international normalized ratio (INR)of between 2.0 and 3.0. The recommended therapeutic INRrange for various clinical situations is listed below: Clinical Situation INR range Pulmonary e mbolism treatment (2.0-3.0)Venous thrombosis treatmentVenous thrombosis prophylaxis (high risk surgery)Prevention of systemic embolism from: Acute myocardial infarction Valvular heart disease Atrial fibrillation Mechanical prosthetic heart valves (2.5-3.5) IS PATIENT ON ANTICOAGULANTS? NTHROMBOPLASTIN TIME [id number] 20:44:00* Test Item Value Reference Range Interpretation Comments THROMBOPLASTIN TIME PARTIAL (test code = PTT) 32.1 seconds 25.0-36. 5 N IS PATIENT ON ANTICOAGULANTS? NBASIC METABOLIC [id number] 20:37:00* Test Item Value Reference Range Interpretation Comments SODIUM (test code = NA) 138 mmol/L 136-145 N POTASSIUM (test code = K) 4.0 mmol/L 3.5-5.1 N CHLORIDE (test code = CL) 104.0 mmol/L 98-107 N CARBON DIOXIDE (test code = CO2) mmol/L 21-32 ANION GAP (test code = GAP) 10-20 GLUCOSE (test code = GLU) mg/dL 74-106 BLOOD UREA NITROGEN (test code = BUN) mg/dL 7-18 GLOMERULAR FILTRATION RATE (test code = GFR) mL/min >=60 CREATININE (test code = CREAT) mg/dL 0.55-1.02 BUN/CREATININE RATIO (test code = BUN/CREA) 10-20 CALCIUM (test code = CA) mg/dL 8.5-10.1 HEPATIC FUNCTION [id number] 20:37:00* Test Item Value Reference Range Interpretation Comments TOTAL PROTEIN (test code = PROT) gram/dL 6.4-8.2 ALBUMIN (test code = ALB) g/dL 3.4-5.0 GLOBULIN (test code = GLOB) gram/dL 2.7-4.2 ALBUMIN/GLOBULIN RATIO (test code = A/G) 0.75-1.50 BILIRUBIN TOTAL (test code = BILT) mg/dL 0.0-1.0 BILIRUBIN DIRECT (test code = BILD) mg/dL 0.0-0.20 SGOT/AST (test code = AST) IUnit/L 15-37 SGPT/ALT (test code = ALT) IUnit/L 12-78 ALKALINE PHOSPHATASE TOTAL (test code = ALKP) IUnit/L 45-117 [id number] 20:37:00* Test Item Value Reference Range Interpretation Comments LIPASE (test code = LIP) U/L 73.0-393.0 [id number] 20:37:00* Test Item Value Reference Range Interpretation Comments TROPONIN-I (test code = TROPI) ng/mL 0-0.045 CBC W/O [id number] 20:35:00* Test Item Value Reference Range Interpretation Comments WHITE BLOOD CELL (test code = WBC) 8.2 K/mm3 4.5-12.5 N RED BLOOD CELL (test code = RBC) 3.88 mill/mm3 3.7-5.2 N HEMOGLOBIN (test code = HGB) 12.3 gram/dL 11.5-15.5 N HEMATOCRIT (test code = HCT) 38.1 % 36.0-46.0 N MEAN CELL VOLUME (test code = MCV) 98.2 fL 80-98 H MEAN CELL HGB (test code = MCH) 31.7 picogram 27.0-33.0 N MEAN CELL HGB CONCETRATION (test code = MCHC) 32.3 gram/dL 33.0-36. 0 L RED CELL DISTRIBUTION WIDTH (test code = RDW) 12.7 % 11.6-16. 2 N PLATELET COUNT (test code = PLT) 249 K/mm3 150-450 N MEAN PLATELET VOLUME (test code = MPV) 9.5 fL 6.7-11.0 N CBC W/O [id number] 20:32:00* Test Item Value Reference Range Interpretation Comments WHITE BLOOD CELL (test code = WBC) K/mm3 4.5-12.5 RED BLOOD CELL (test code = RBC) mill/mm3 3.7-5.2 HEMOGLOBIN (test code = HGB) 12.3 gram/dL 11.5-15.5 N HEMATOCRIT (test code = HCT) 38.1 % 36.0-46.0 N MEAN CELL VOLUME (test code = MCV) fL 80-98 MEAN CELL HGB (test code = MCH) picogram 27.0-33.0 MEAN CELL HGB CONCETRATION (test code = MCHC) gram/dL 33.0-36. 0 RED CELL DISTRIBUTION WIDTH (test code = RDW) % 11.6-16. 2 PLATELET COUNT (test code = PLT) K/mm3 150-450 MEAN PLATELET VOLUME (test code = MPV) fL 6.7-11.0 - XR ANKLE 3 + V [id number] 20:11:00 FAX: Mary Grace Mir DO [place]: B St: REG Name: MARCELLA VERNON [facility] : [birth year] Age/S: 78/F [address] [facility] Unit #: [id number] Loc: [place] [address] Phys: Mary Grace Mir DO Acct: [id number] Dis Date: Status: REG ER PHONE #: [phone] Exam Date: 03/14/20191909 FAX #: [phone] Reason: ANKLE PAIN EXAMS: CPT CODE: [id number] XR ANKLE 3 + [place] [address] HISTORY: Pain. SHARON RISON: None available. Location: TH. Single view pel vis: Pelvic ring is intact on a single view. Additional views wou ld be of value. Joints are narrowed. No acute fracture or dislocation of either hip. No AVN. Trabecular pattern and mineralization are nor mal. Acetabulum appear unremarkable. SI joints are preserved. 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 Soft tissues are within normal limits. IM PRESSION: No acute fracture or dislocation on single view of t he pelvis. No AVN. 3 views each of the righ t and left ankle: No acute fracture or dislocation of either a nkle. Ankle mortise is preserved. No osteochondral lesion of either ta renard is noted. No joint fluid is noted. Bilateral plantar calcaneal ent hesophytes larger on the right side. Vascular calcifications. IMPRESSION: No acute fracture or dislocation. Ankle mortise is preserved. No osteochondral lesions. Electronica lly Signed by Oseas Somers on 03/14/2019 at 2010 Re ported and signed by: Matthew Somers M.D. CC: Mary Grace Mir DO Technologist: RT HARI(Kathy) Trnscrd Date/Time/By: 03/14/2019 (2010) : By: [email or web address] Orig Print D/T: S: 03/14/2019 (2013) PAGE 1 Signed Report - XR PELVIS 1/2 VIEWS 2019-03-14 20:11:00 FAX: Mary Grace Mir DO [place]: B St: REG Name: MARCELLA VERNON [facility] : [birth year] Age/S: 78/F [address] [facility] Unit #: [id number] Loc: [place] [address] Phys: Mary Grace Mir DO Acct: [id number] Dis Date: Status: REG ER PHONE #: [phone] Exam Date: 03/14/20191909 FAX #: [phone] Reason: PELVIC PAIN EXAMS: CPT CODE: [id number] XR PELVIS 1/2 VIEWS 92669 HISTORY: Pain. SHARON RISON: None available. Location: TH. Single view pel vis: Pelvic ring is intact on a single view. Additional views wou ld be of value. Joints are narrowed. No acute fracture or dislocation of either hip. No AVN. Trabecular pattern and mineralization are nor mal. Acetabulum appear unremarkable. SI joints are preserved. 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 Soft tissues are within normal limits. IM PRESSION: No acute fracture or dislocation on single view of t he pelvis. No AVN. 3 views each of the righ t and left ankle: No acute fracture or dislocation of either a nkle. Ankle mortise is preserved. No osteochondral lesion of either ta renard is noted. No joint fluid is noted. Bilateral plantar calcaneal ent hesophytes larger on the right side. Vascular calcifications. IMPRESSION: No acute fracture or dislocation. Ankle mortise is preserved. No osteochondral lesions. Electronica lly Signed by Oseas Somers on 03/14/2019 at 2010 Re ported and signed by: Matthew Somers M.D. CC: Mary Grace Mir DO Technologist: RT HARI(Kathy) Trnscrd Date/Time/By: 03/14/2019 (2010) : By: [email or web address] Orig Print D/T: S: 03/14/2019 (2013) PAGE 1 Signed Report - XR PELVIS 1/2 VIEWS 2019-03-14 20:11:00 FAX: Mary Grace Mir DO [place]: B St: ADM Name: MARCELLA VERNON [facility] : [birth year] Age/S: 78/F [address] Unit #: [id number] Loc: [address] [place] [address] Phys: Mary Grace Mir DO Acct: [id number] Dis Date: Status: ADM IN PHONE #: [phone] Exam Date: 03/14/20191909 FAX #: [phone] Reason: PELVIC PAIN EXAMS: CPT CODE: [id number] XR PELVIS 1/2 VIEWS 15177 HISTORY: Pain. SHARON RISON: None available. Location: TH. Single view pel vis: Pelvic ring is intact on a single view. Additional views wou ld be of value. Joints are narrowed. No acute fracture or dislocation of either hip. No AVN. Trabecular pattern and mineralization are nor mal. Acetabulum appear unremarkable. SI joints are preserved. 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 Soft tissues are within normal limits. IM PRESSION: No acute fracture or dislocation on single view of t he pelvis. No AVN. 3 views each of the righ t and left ankle: No acute fracture or dislocation of either a nkle. Ankle mortise is preserved. No osteochondral lesion of either ta renard is noted. No joint fluid is noted. Bilateral plantar calcaneal ent hesophytes larger on the right side. Vascular calcifications. IMPRESSION: No acute fracture or dislocation. Ankle mortise is preserved. No osteochondral lesions. Electronica lly Signed by Oseas Somers on 03/14/2019 at 2010 Re ported and signed by: Matthew Somers M.D. CC: Mary Grace Mir DO Technologist: RT HARI(Kathy) Trnscrd Date/Time/By: 03/14/2019 (2010) : By: [email or web address] Orig Print D/T: S: 03/14/2019 (2013) PAGE 1 Signed Report - XR ANKLE 3 + V BI 2019-03-14 20:11:00 FAX: Mary Grace Mir DO [place]: B St: ADM Name: Javi FAUZIAMARCELLA CAMERON [facility] : [birth year] Age/S: 78/F [address] [facility] Unit #: [id number] Loc: [place] [address] Phys: Mary Grace Mir DO Acct: [id number] Dis Date: Status: ADM IN PHONE #: [phone] Exam Date: 03/14/2019 191 FAX #: [phone] Reason: ANKLE PAIN EXAMS: CPT CODE: [id number] XR ANKLE 3 + [place] [address] HISTORY: Pain. SHARON RISON: None available. Location: TH. Single view pel vis: Pelvic ring is intact on a single view. Additional views wou ld be of value. Joints are narrowed. No acute fracture or dislocation of either hip. No AVN. Trabecular pattern and mineralization are nor mal. Acetabulum appear unremarkable. SI joints are preserved. 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 Soft tissues are within normal limits. IM PRESSION: No acute fracture or dislocation on single view of t he pelvis. No AVN. 3 views each of the righ t and left ankle: No acute fracture or dislocation of either a nkle. Ankle mortise is preserved. No osteochondral lesion of either ta renard is noted. No joint fluid is noted. Bilateral plantar calcaneal ent hesophytes larger on the right side. Vascular calcifications. IMPRESSION: No acute fracture or dislocation. Ankle mortise is preserved. No osteochondral lesions. Electronica lly Signed by Oseas Somers on 03/14/2019 at 2010 Re ported and signed by: Matthew Somers M.D. CC: Mary Grace Mir DO Technologist: RT HARI(Kathy) Trnscrd Date/Time/By: 03/14/2019 (2010) : By: [email or web address] Orig Print D/T: S: 03/14/2019 (2013) PAGE 1 Signed Report - XR KNEE 3 V BI 2019-03-14 20:06:00 FAX: Mary Grace Mir DO [place]: B St: REG Name: MARCELLA VERNON [facility] : [birth year] Age/S: 78/F [address] [facility] Unit #: [id number] Loc: [place] [address] Phys: Mary Grace Mir DO Acct: [id number] Dis Date: Status: REG ER PHONE #: [phone] Exam Date: 03/14/20191909 FAX #: [phone] Reason: KNEE PAIN EXAMS: CPT CODE: [id number] XR KNEE [place] [address] HISTORY: Pain. SHARON RISON: None available. AP and lateral view of both legs and 3 view s each of the right and left knee: Location: TH. No acute fracture or dislocation of either leg. Vascular calcification s noted bilaterally. Tricompartment joint space narrowing in the knee sara aterally with chondrocalcinosis noted bilaterally. Marginal osteophytes f rom all 3 compartments within the knee. Left suprapatellar joint fluid. No joint fluid on the right. Bilateral ankle joints are preserved. No osteochondral lesion of the talus on either side. Plantar calcaneal enthesophytes bilaterally, larger on the right side. Mineralization is no rmal. IMPRESSION: No acute fracture or disloca tion of either leg or knee. Degenerative changes with narrowed joint sp aces an marginal osteophytes in all 3 compartments of the knee. Moderat e left suprapatellar joint fluid. Ankle mortise bilaterally are preserv ed. at 2005 Reported and signed by: Matthew Somers M.D. CC: Mary Grace Mir DO Technologist: DEON HENRY RT(R) Trnscrd Date/Time/By: 019 (2005) : By: [email or web address] Orig Print D/T: S: 03/14/2019 (2008) PAGE 1 Signed Report - XR TIBIA/FIBULA 2 V [id number] 20:06:00 FAX: Mary Grace Mir DO [place]: B St: REG Name: MARCELLA VERNON [facility] : [birth year] Age/S: 78/F [address] Unit #: [id number] Loc: [place] [address] Phys: Mary Grace Mir DO Acct: [id number] Dis Date: Status: REG ER PHONE #: [phone] Exam Date: 03/14/2019 191 FAX #: [phone] Reason: LEG PAIN EXAMS: CPT CODE: [id number] XR TIBIA/FIB[place] [address] [place] [address] HISTORY: Pain. SHARON RISON: None available. AP and lateral view of both legs and 3 view s each of the right and left knee: Location: TH. No acute fracture or dislocation of either leg. Vascular calcification s noted bilaterally. Tricompartment joint space narrowing in the knee sara aterally with chondrocalcinosis noted bilaterally. Marginal osteophytes f rom all 3 compartments within the knee. Left suprapatellar joint fluid. No joint fluid on the right. Bilateral ankle joints are preserved. No osteochondral lesion of the talus on either side. Plantar calcaneal enthesophytes bilaterally, larger on the right side. Mineralization is no rmal. IMPRESSION: No acute fracture or disloca tion of either leg or knee. Degenerative changes with narrowed joint sp aces an marginal osteophytes in all 3 compartments of the knee. Moderat e left suprapatellar joint fluid. Ankle mortise bilaterally are preserv ed. at 2005 Reported and signed by: Matthew Somers M.D. CC: Mary Grace Mir DO Technologist: RT PATRICK(R) Trnscrd Date/Time/By: 019 (2005) : By: [email or web address] Orig Print D/T: S: 03/14/2019 (2008) PAGE 1 Signed Report - XR KNEE 3 V [id number] 20:06:00 FAX: Mary Grace Mir DO [place]: B St: ADM Name: MARCELLA VERNON [facility] : [birth year] Age/S: 78/F [address] Unit #: [id number] Loc: [place] [address] Phys: Mary Grace Mir DO Acct: [id number] Dis Date: Status: ADM IN PHONE #: [phone] Exam Date: 03/14/20191909 FAX #: [phone] Reason: KNEE PAIN EXAMS: CPT CODE: [id number] XR KNEE [address] [place] [address] HISTORY: Pain. SHARON RISON: None available. AP and lateral view of both legs and 3 view s each of the right and left knee: Location: TH. No acute fracture or dislocation of either leg. Vascular calcification s noted bilaterally. Tricompartment joint space narrowing in the knee sara aterally with chondrocalcinosis noted bilaterally. Marginal osteophytes f rom all 3 compartments within the knee. Left suprapatellar joint fluid. No joint fluid on the right. Bilateral ankle joints are preserved. No osteochondral lesion of the talus on either side. Plantar calcaneal enthesophytes bilaterally, larger on the right side. Mineralization is no rmal. IMPRESSION: No acute fracture or disloca tion of either leg or knee. Degenerative changes with narrowed joint sp aces an marginal osteophytes in all 3 compartments of the knee. Moderat e left suprapatellar joint fluid. Ankle mortise bilaterally are preserv ed. at 2006 Reported and signed by: Matthew Somers M.D. CC: Mary Grace Mir DO Technologist: RT PATRICK(R) Trnscrd Date/Time/By: 019 (2005) : By: [email or web address] Orig Print D/T: S: 03/14/2019 (2008) PAGE 1 Signed Report - XR TIBIA/FIBULA 2 V [id number] 20:06:00 FAX: Mary Grace Mir DO [place]: B St: ADM Name: MARCELLA VERNON [facility] : [birth year] Age/S: 78/F [address] [facility] Unit #: [id number] Loc: [place] [address] Phys: Mary Grace Mir Acct: [id number] Dis Date: Status: ADM IN PHONE #: [phone] Exam Date: 03/14/20191909 FAX #: [phone] Reason: LEG PAIN EXAMS: CPT CODE: [id number] XR TIBIA/FIB[place] [address] [place] [address] HISTORY: Pain. SHARON RISON: None available. AP and lateral view of both legs and 3 view s each of the right and left knee: Location: TH. No acute fracture or dislocation of either leg. Vascular calcification s noted bilaterally. Tricompartment joint space narrowing in the knee sara aterally with chondrocalcinosis noted bilaterally. Marginal osteophytes f rom all 3 compartments within the knee. Left suprapatellar joint fluid. No joint fluid on the right. Bilateral ankle joints are preserved. No osteochondral lesion of the talus on either side. Plantar calcaneal enthesophytes bilaterally, larger on the right side. Mineralization is no rmal. IMPRESSION: No acute fracture or disloca tion of either leg or knee. Degenerative changes with narrowed joint sp aces an marginal osteophytes in all 3 compartments of the knee. Moderat e left suprapatellar joint fluid. Ankle mortise bilaterally are preserv ed. at 2006 Reported and signed by: Matthew Somers M.D. CC: Mary Grace Mir DO Technologist: DEON HENRY RT(R) Trnscrd Date/Time/By: 019 (2005) : By: [email or web address] Orig Print D/T: S: 03/14/2019 (2008) PAGE 1 Signed Report - XR CHEST 1 [id number] 20:02:00 FAX: Mary Grace Mir DO [place]: St: REG Name: Javi FORDMarciaMARCELLA CAMERON [facility] : [birth year] Age/S: 78/F [address] [facility] Unit #: [id number] Loc: [place] [address] Phys: Mary Grace Mir DO Acct: [id number] Dis Date: Status: REG ER PHONE #: [phone] Exam Date: 03/14/20191909 FAX #: [phone] Reason: CHEST PAIN EXAMS: CPT CODE: [id number] XR CHEST 1 V [address] HISTORY: Fall. SHARON RISON: None available. Location: TH. No acute infilt rates, effusion or congestion is noted. No pneumothorax. 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 Cardiomegaly. Elevated right hemidiaphragm. IMPRESSION: No acute inf iltrates, effusion or congestion. at 2001 Reported and signed by: Jamaica Somers M.D. CC: Mary Grace Mir DO Technologist: PIA HENRY RT(R) Trnscrd Date/Time/By: 03/14/2019 (2001) : By: [email or web address] O rig Print D/T: S: 03/14/2019 (2004) PAGE 1 Signed Report - XR CHEST 1 [id number] 20:02:00 FAX: Mary Grace Mir DO [place]: St: ADM Name: MARCELLA VERNON [facility] : [birth year] Age/S: 78/F [address] Unit #: [id number] Loc: V.[address] [place] [address] Phys: Mary Grace Mir DO Acct: [id number] Dis Date: Status: ADM IN PHONE #: [phone] Exam Date: 03/14/20191909 FAX #: [phone] Reason: CHEST PAIN EXAMS: CPT CODE: [id number] XR CHEST 1 V 38766 HISTORY: Fall. SHARON RISON: None available. Location: TH. No acute infilt rates, effusion or congestion is noted. No pneumothorax. 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 Cardiomegaly. Elevated right hemidiaphragm. IMPRESSION: No acute inf iltrates, effusion or congestion. at 2001 Reported and signed by: [place] Somers M.D. CC: Mary Grace Mir DO Technologist: RT HARI(Kathy) Ramona Date/Time/By: 03/14/2019 (2001) : By: [email or web address] O rig Print D/T: S: 03/14/2019 (2004) PAGE 1 Signed Report - CT MAXIFAC W/O CNT 2019-03-14 19:02:00 Name: MARCELLA PORTER [facility] : 1940 Age/S: 78 / F [address] Unit #: [id number] Loc: [place] [address] Phys: Mary Grace Mir DO Acct: [id number] Dis Date: Status: REG ER PHONE #: [phone] Exam Date: 03/14/2019 1850 FAX #: [phone] Reason: fall, injury EXAMS: CPT CODE: [id number] CT MAXIFAC [place] [address] HISTORY: Fall and pain. COMPARISON: None available. CT facial bones without contrast: Automated exposure control. Location: TH. The cribriform plates are without fracture. The nasal bones are without fracture. Zygomatic arches are without fracture. Orbital neville are without fracture bilaterally. The sinus neville bilaterally are without fracture. Mucosal thickening of both maxillary sinus with partial opacification of the left. Maxillary ostium are patent. Partial opacification of the ethmoid air cells as well. No air- fluid levels. Nasal septal deviation is slight towards the left. Maxilla is without fracture. Mandibles are without fracture. TMJ are well situated. Visualized mastoid air cells are clear. Intraorbital contents are normal. Symmetrical fossa of Rosenmueller. IMPRESSION: No acute facial bone fracture. Sinusitis. at 1902 Reported and signed by: Matthew Somers M.D. CC: Mary Grace Mir DO Technologist:Allison Butterfield RT(R)(CT) CTDI: DLP: Trnscb Date/Time: 03/14/2019 (1901) [email or web address] Orig Print D/T: S: 03/14/2019 (1904) PAGE 1 Signed Report - CT MAXIFAC W/O [id number] 19:02:00 Name: MARCELLA PORTER [facility] : 1940 Age/S: 78 / F [address] [facility] Unit #: [id number] Loc: [place] [address] Phys: Mary Grace Mir DO Acct: [id number] Dis Date: Status: ADM IN PHONE #: [phone] Exam Date: 03/14/2019 1850 FAX #: [phone] Reason: fall, injury EXAMS: CPT CODE: [id number] CT MAXIFAC W/[place] CNT [address]83 HISTORY: Fall and pain. COMPARISON: None available. CT facial bones without contrast: Automated exposure control. Location: TH. The cribriform plates are without fracture. The nasal bones are without fracture. Zygomatic arches are without fracture. Orbital neville are without fracture bilaterally. The sinus neville bilaterally are without fracture. Mucosal thickening of both maxillary sinus with partial opacification of the left. Maxillary ostium are patent. Partial opacification of the ethmoid air cells as well. No air-fluid levels. Nasal septal deviation is slight towards the left. Maxilla is without fracture. Mandibles are without fracture. TMJ are well situated. Visualized mastoid air cells are clear. Intraorbital contents are normal. Symmetrical fossa of Rosenmueller. IMPRESSION: No acute facial bone fracture. Sinusitis. at 1902 Reported and signed by: Matthew Somers M.D. CC: Mary Grace Mir DO Technologist:Allison Butterfield RT(R)(CT) CTDI: DLP: Trnscb Date/Time: 03/14/2019 (1901) [email or web address] Orig Print D/T: S: 03/14/2019 (1904) PAGE 1 Signed Report - CT C-SPINE W/O [id number] 18:58:00 Name: MARCELLA PORTER [facility] : 1940 Age[facility]S: 78 / [facility] [address] [facility] #: [id number] Loc: [place] [address] Phys: Mary Grace Mir DO Acct: [id number] Dis Date: Status: REG ER PHONE #: [phone] Exam Date: 03/14/2019 185 FAX #: [phone] Reason: Neck Pain EXAMS: CPT CODE: [id number] CT C-SPINE W/O CONTRAST 25871 HISTORY: Neck pain. COMPARISON: None available. Location: TH. CT cervical spine without contrast: Automated exposure control. No acute fracture of the cervical spine. Cervical fusion anteriorly from C4 through C5 levels with bone graft and anterior metallic internal fixation plate. Minimal 1 to 2 mm retrolisthesis of fused C4-C5 over C6. Vertebral body heights are maintained. Narrowed atlantoaxial joint. Severe narrowed disc space at C5-C6 through T1-T2 level. Uncovertebral joints are narrowed. No prevertebral soft tissue swelling is noted. Posterior osteophyte at C5-C6 level with facet hypertrophy as well at C6-C7 level resulting in moderate canal and moderate foraminal stenosis. Correlate with radicular symptoms. The thyroid glands are unremarkable. Superior medias tinum is unremarkable. Lung apices are clear. IMPRESSION: No acute fracture. Cervical fusion with metallic internal fi xation plate anteriorly from C4 through C5 with bone graft with chronic appearing 2 mm retrolisthesis of the fused C4-C5 vertebral bodies over C6 vertebral body. Multilevel disc space narrowing. Vertebral body heights are maintained. Moderate canal and foraminal stenosis from posterior osteophyte at C5-C6 and C6-C7 levels. Electronically Aisha d by Oseas Somers on 03/14/2019 at 185 Reported an d signed by: Matthew Somers M.D. CC: Mary Grace Mir DO Technologist:Allison Butterfield RT(R)(CT) CTDI: D LP: Trnnhb Date/Time: 03/14/2019 (1857) [email or web address] Orig Print D/T: S: 03/14/2019 (1900) PAGE 1 Signed R eport - CT C-SPINE W/O [id number] 18:58:00 Name: MARCELLA PORTER [facility] : 1940 Age/S: 78 / F [address] [facility] Unit #: [id number] Loc: [place] [address] Phys: Corinne Mir DO Acct: [id number] Di s Date: Status: ADM IN PHONE #: Exam Date: 03/14/20191849 FAX #: Reason: Neck Pain EXAMS: CPT CODE: [id number] CT C-SPINE W/ O CONTRAST 65910 HISTORY: Neck pain. COMPARISON: None available. Location: TH. C T cervical spine without contrast: Automated exposure control. No acute fracture of the cervical spine. Cervical fusion anteriorly from C4 through C5 levels with bone graft and anterior metallic internal fixation plate. Minimal 1 to 2 mm retrolisthesis of fused C4-C5 over C6. Vertebra l body heights are maintained. Narrowed atlantoaxial joint. Severe narro wed disc space at C5-C6 through T1-T2 level. Uncovertebral joints are luis fernando rowed. No prevertebral soft tissue swelling is noted. Posterior osteophy te at C5-C6 level with facet hypertrophy as well at C6-C7 level resulting in moderate canal and moderate foraminal stenosis. Correlate with radicul ar symptoms. The thyroid glands are unremarkable. Superior medias tinum is unremarkable. Lung apices are clear. IMPRESSION: No acute fracture. Cervical fusion with metallic internal fi xation plate anteriorly from C4 through C5 with bone graft with chronic appearing 2 mm retrolisthesis of the fused C4-C5 vertebral bodies over C6 vertebral body. Multilevel disc space narrowing. Vertebral body heights are maintained. Moderate canal and foraminal stenosis from posterior osteophyte at C5-C6 and C6-C7 levels. Electronically Aisha d by Oseas Somers on 03/14/2019 at 185 Reported an d signed by: Matthew Somers M.D. CC: Mary Grace Mir DO Technologist:Allison Butterfield RT(R)(CT) CTDI: D LP: Trnscb Date/Time: 03/14/2019 (1857) t.SDR.TH4 Orig Print D/T: S: 03/14/2019 (190) PAGE 1 Signed R eport - CT HEAD/BRAIN W/O [id number] 18:53:00 Name: MARCELLA PORTER [facility] : 1940 Age/S: 78 / F [address] [facility] Unit #: [id number] Loc: [place] [address] Phys: Corinne Mir DO Acct: [id number] Di s Date: Status: REG ER PHONE #: [phone] Exam Date: 03/14/20191849 FAX #: Reason: HEADACHE EXAMS: CPT CODE: [id number] CT HEAD/BRAIN W/O CONT 17004 HISTORY: Fall and pain. COMPARISON: None available. CT brain without contrast : Automated exposure control. Location: [facility]. No acute intracranial bleeds or extra-axial collections are noted. No acute territ orial vascular infarction is noted. 1 cm coarse granulomatous calcificati on in the right posterior parietal cortex. The sulci, gyri, ventri cles and subarachnoid spaces and the basilar cisterns are normal for patie nt's age. No herniation or hydrocephalus or midline shift is noted. Mild periventricular ischemic gliosis is noted. Age-appropriate at rophy is noted as well. Portions of the visualized paranasal sinus es demonstrated left maxillary sinusitis. No obvious bony ca lvarial defect is noted. IMPRESSION: No acute intracranial bleeds or extra-axial collections. No acute jose david torial vascular infarction. No herniation or hydrocephalus or midline shift. Chronic white matter ischemic disease and atro phy . at 1853 Reported and signed by: Matthew miles M.D. PAGE 1 Signed Report (CONTINUED) Name: MARCELLA PORTER [facility] : 1940 Age/S: 78 / F [address] Unit #: [id number] Loc: [place] [address] P hys: Mary Grace Mir DO Acct: V [id number] Dis Date: Status: REG ER PHONE #: [phone] Exam Date: 03/14/2019 1850 F AX #: [phone] Reason: HEADACHE EXAMS: CPT CODE: [id number] CT HEAD/BRAIN W/O CONT 52014 <Continued> CC: Mary Grace Mir DO Technologist:Allison Butterfield RT(R)(CT) CTDI: DLP: Trnscb Date/Time: 03/14/2019 (1852) t.[email or web address] Orig Print D/T: S: 03/14/2019 (1855) PAGE 2 Signed Report - CT HEAD/BRAIN W/O [id number] 18:53:00 Name: MARCELLA PORTER [facility] : 1940 Age/S: 78 / F [address] Unit #: [id number] Loc: [place] [address] Phys: Corinne Mir DO Acct: [id number] Di s Date: Status: ADM IN PHONE #: Exam Date: 03/14/2019 1850 FAX #: Reason: HEADACHE EXAMS: CPT CODE: [id number] CT HEAD/BRAIN W/O CONT 24940 HISTORY: Fall and pain. COMPARISON: None available. CT brain without contrast : Automated exposure control. Location: TH. No acute intracranial bleeds or extra-axial collections are noted. No acute territ orial vascular infarction is noted. 1 cm coarse granulomatous calcificati on in the right posterior parietal cortex. The sulci, gyri, ventri cles and subarachnoid spaces and the basilar cisterns are normal for patie nt's age. No herniation or hydrocephalus or midline shift is noted. Mild periventricular ischemic gliosis is noted. Age-appropriate at rophy is noted as well. Portions of the visualized paranasal sinus es demonstrated left maxillary sinusitis. No obvious bony ca lvarial defect is noted. IMPRESSION: No acute intracranial bleeds or extra-axial collections. No acute jose david torial vascular infarction. No herniation or hydrocephalus or midline shift. Chronic white matter ischemic disease and atro phy . at 1853 Reported and signed by: Matthew miles M.D. PAGE 1 Signed Report (CONTINUED) Name: MARCELLA PORTER [facility] : 1940 [facility]S: 78 [facility] [address] [facility]: [id number] Loc: [place] [address] P hys: Mary Grace Mir DO Acct: V [id number] Dis Date: Status: ADM IN PHONE #: [phone] Exam Date: 03/14/2019 1850 F AX #: [phone] Reason: HEADACHE EXAMS: CPT CODE: [id number] CT HEAD/BRAIN W/O CONT 57209 <Continued> CC: Mary Grace Mir DO Technologist:Allison Butterfield RT(R)(CT) CTDI: DLP: Trnscb Date/Time: 03/14/2019 (1852) t.SDR.TH4 Orig Print D/T: S: 03/14/2019 (1855) PAGE 2 Signed Report COMPREHENSIVE METABOLIC [id number] 09:55:00 * Test Item Value Reference Range Interpretation Comments SODIUM (test code = NA) 144 mmol/L 136-145 N POTASSIUM (test code = K) 3.5 mmol/L 3.5-5.1 N CHLORIDE (test code = CL) 110.0 mmol/L 98-107 H CARBON DIOXIDE (test code = CO2) 27.0 mmol/L 21-32 N ANION GAP (test code = GAP) 10.5 10-20 N GLUCOSE (test code = GLU) 100 mg/dL 74-106 N BLOOD UREA NITROGEN (test code = BUN) 5 mg/dL 7-18 L GLOMERULAR FILTRATION RATE (test code = GFR) > 60 mL/min >=60 Estimated GFR by using Modified MDRD formula.Chronic kidney disease is defined as either kidney damageor GFR <60 mL/min/1.73 m2 for >3 months. CREATININE (test code = CREAT) 0.60 mg/dL 0.55-1.02 N Note change in reference range due to change in reagent. BUN/CREATININE RATIO (test code = BUN/CREA) 8.3 10-20 L TOTAL PROTEIN (test code = PROT) 6.4 gram/dL 6.4-8.2 N ALBUMIN (test code = ALB) 3.2 g/dL 3.4-5.0 L GLOBULIN (test code = GLOB) 3.2 gram/dL 2.7-4.2 N ALBUMIN/GLOBULIN RATIO (test code = A/G) 1.0 0.75-1.50 N CALCIUM (test code = CA) 9.0 mg/dL 8.5-10.1 N BILIRUBIN TOTAL (test code = BILT) 0.80 mg/dL 0.0-1.0 N SGOT/AST (test code = AST) 27 IUnit/L 15-37 N SGPT/ALT (test code = ALT) 27 IUnit/L 12-78 N ALKALINE PHOSPHATASE TOTAL (test code = ALKP) 80 IUnit/L 45-117 N Note change in reference range due to change in reagent. [id number] 09:55:00* Test Item Value Reference Range Interpretation Comments MAGNESIUM (test code = MAG) 1.4 mg/dL 1.8-2.4 L COMPREHENSIVE METABOLIC [id number] 09:26:00* Test Item Value Reference Range Interpretation Comments SODIUM (test code = NA) 144 mmol/L 136-145 N POTASSIUM (test code = K) 3.5 mmol/L 3.5-5.1 N CHLORIDE (test code = CL) 110.0 mmol/L 98-107 H CARBON DIOXIDE (test code = CO2) mmol/L 21-32 ANION GAP (test code = GAP) 10-20 GLUCOSE (test code = GLU) mg/dL 74-106 BLOOD UREA NITROGEN (test code = BUN) mg/dL 7-18 GLOMERULAR FILTRATION RATE (test code = GFR) mL/min >=60 CREATININE (test code = CREAT) mg/dL 0.55-1.02 BUN/CREATININE RATIO (test code = BUN/CREA) 10-20 TOTAL PROTEIN (test code = PROT) gram/dL 6.4-8.2 ALBUMIN (test code = ALB) g/dL 3.4-5.0 GLOBULIN (test code = GLOB) gram/dL 2.7-4.2 ALBUMIN/GLOBULIN RATIO (test code = A/G) 0.75-1.50 CALCIUM (test code = CA) mg/dL 8.5-10.1 BILIRUBIN TOTAL (test code = BILT) mg/dL 0.0-1.0 SGOT/AST (test code = AST) IUnit/L 15-37 SGPT/ALT (test code = ALT) IUnit/L 12-78 ALKALINE PHOSPHATASE TOTAL (test code = ALKP) IUnit/L 45-117 [id number] 09:26:00* Test Item Value Reference Range Interpretation Comments MAGNESIUM (test code = MAG) mg/dL 1.8-2.4 CBC W/AUTO [id number] 08:53:00* Test Item Value Reference Range Interpretation Comments WHITE BLOOD CELL (test code = WBC) 9.0 K/mm3 4.5-12.5 N RED BLOOD CELL (test code = RBC) 4.99 mill/mm3 3.7-5.2 N HEMOGLOBIN (test code = HGB) 15.0 gram/dL 11.5-15.5 N HEMATOCRIT (test code = HCT) 45.4 % 36.0-46.0 N MEAN CELL VOLUME (test code = MCV) 91.0 fL 80-98 N MEAN CELL HGB (test code = MCH) 30.1 picogram 27.0-33.0 N MEAN CELL HGB CONCETRATION (test code = MCHC) 33.0 gram/dL 33.0-36. 0 N RED CELL DISTRIBUTION WIDTH (test code = RDW) 14.6 % 11.6-16. 2 N RED CELL DISTRIBUTION WIDTH SD (test code = RDW-SD) 48.1 fL 37 .0-51.0 N PLATELET COUNT (test code = PLT) 297 K/mm3 150-450 N MEAN PLATELET VOLUME (test code = MPV) 9.0 fL 6.7-11.0 N NEUTROPHIL % (test code = NT%) 65.3 % 39.0-69.0 N IMMATURE GRANULOCYTE % (test code = IG%) 1.1 % 0.0-5.0 N LYMPHOCYTE % (test code = LY%) 23.0 % 25.0-55.0 L MONOCYTE % (test code = MO%) 7.7 % 0.0-10.0 N EOSINOPHIL % (test code = EO%) 2.5 % 0.0-5.0 N BASOPHIL % (test code = BA%) 0.4 % 0.0-1.0 N NUCLEATED RBC % (test code = NRBC%) 0.0 % 0-0 N NEUTROPHIL # (test code = NT#) 5.85 K/mm3 1.8-7.7 N IMMATURE GRANULOCYTE # (test code = IG#) 0.10 x10 3/uL 0-0.03 H LYMPHOCYTE # (test code = LY#) 2.06 K/mm3 1.0-5.0 N MONOCYTE # (test code = MO#) 0.69 K/mm3 0-0.8 N EOSINOPHIL # (test code = EO#) 0.22 K/mm3 0.0-0.5 N BASOPHIL # (test code = BA#) 0.04 K/mm3 0.0-0.2 N NUCLEATED RBC # (test code = NRBC#) 0.00 K/mm3 0.0-0.1 N MANUAL DIFF REQUIRED (test code = MDIFF) NO CBC W/AUTO [id number] 08:51:00* Test Item Value Reference Range Interpretation Comments WHITE BLOOD CELL (test code = WBC) K/mm3 4.5-12.5 RED BLOOD CELL (test code = RBC) mill/mm3 3.7-5.2 HEMOGLOBIN (test code = HGB) 15.0 gram/dL 11.5-15.5 N HEMATOCRIT (test code = HCT) 45.4 % 36.0-46.0 N MEAN CELL VOLUME (test code = MCV) fL 80-98 MEAN CELL HGB (test code = MCH) picogram 27.0-33.0 MEAN CELL HGB CONCETRATION (test code = MCHC) gram/dL 33.0-36. 0 RED CELL DISTRIBUTION WIDTH (test code = RDW) % 11.6-16. 2 RED CELL DISTRIBUTION WIDTH SD (test code = RDW-SD) fL 37 .0-51.0 PLATELET COUNT (test code = PLT) K/mm3 150-450 MEAN PLATELET VOLUME (test code = MPV) fL 6.7-11.0 NEUTROPHIL % (test code = NT%) % 39.0-69.0 IMMATURE GRANULOCYTE % (test code = IG%) % 0.0-5.0 LYMPHOCYTE % (test code = LY%) % 25.0-55.0 MONOCYTE % (test code = MO%) % 0.0-10.0 EOSINOPHIL % (test code = EO%) % 0.0-5.0 BASOPHIL % (test code = BA%) % 0.0-1.0 NEUTROPHIL # (test code = NT#) K/mm3 1.8-7.7 LYMPHOCYTE # (test code = LY#) K/mm3 1.0-5.0 MONOCYTE # (test code = MO#) K/mm3 0-0.8 EOSINOPHIL # (test code = EO#) K/mm3 0.0-0.5 BASOPHIL # (test code = BA#) K/mm3 0.0-0.2 B-TYPE NATRIURETIC [id number] 05:19:00* Test Item Value Reference Range Interpretation Comments B-TYPE NATRIURETIC PEPTIDE (test code = BNP) 1371.35 pgram/mL 0-100 H COMPREHENSIVE METABOLIC [id number] 09:46:00* Test Item Value Reference Range Interpretation Comments SODIUM (test code = NA) 142 mmol/L 136-145 N POTASSIUM (test code = K) 4.1 mmol/L 3.5-5.1 N CHLORIDE (test code = CL) 112.0 mmol/L 98-107 H CARBON DIOXIDE (test code = CO2) 23.0 mmol/L 21-32 N ANION GAP (test code = GAP) 11.1 10-20 N GLUCOSE (test code = GLU) 83 mg/dL 74-106 N BLOOD UREA NITROGEN (test code = BUN) 29 mg/dL 7-18 H RESULT VERIFIED BY REPEAT ANALYSIS GLOMERULAR FILTRATION RATE (test code = GFR) > 60 mL/min >=60 Estimated GFR by using Modified MDRD formula.Chronic kidney disease is defined as either kidney damageor GFR <60 mL/min/1.73 m2 for >3 months. CREATININE (test code = CREAT) 0.70 mg/dL 0.55-1.02 N Note change in reference range due to change in reagent. BUN/CREATININE RATIO (test code = BUN/CREA) 41.4 10-20 H TOTAL PROTEIN (test code = PROT) 5.9 gram/dL 6.4-8.2 L ALBUMIN (test code = ALB) 3.0 g/dL 3.4-5.0 L GLOBULIN (test code = GLOB) 2.9 gram/dL 2.7-4.2 N ALBUMIN/GLOBULIN RATIO (test code = A/G) 1.0 0.75-1.50 N CALCIUM (test code = CA) 8.6 mg/dL 8.5-10.1 N BILIRUBIN TOTAL (test code = BILT) 0.50 mg/dL 0.0-1.0 N SGOT/AST (test code = AST) 27 IUnit/L 15-37 N SGPT/ALT (test code = ALT) 25 IUnit/L 12-78 N ALKALINE PHOSPHATASE TOTAL (test code = ALKP) 69 IUnit/L 45-117 N Note change in reference range due to change in reagent. [id number] 09:46:00* Test Item Value Reference Range Interpretation Comments MAGNESIUM (test code = MAG) 1.4 mg/dL 1.8-2.4 L COMPREHENSIVE METABOLIC [id number] 09:18:00* Test Item Value Reference Range Interpretation Comments SODIUM (test code = NA) 142 mmol/L 136-145 N POTASSIUM (test code = K) 4.1 mmol/L 3.5-5.1 N CHLORIDE (test code = CL) 112.0 mmol/L 98-107 H CARBON DIOXIDE (test code = CO2) mmol/L 21-32 ANION GAP (test code = GAP) 10-20 GLUCOSE (test code = GLU) mg/dL 74-106 BLOOD UREA NITROGEN (test code = BUN) mg/dL 7-18 GLOMERULAR FILTRATION RATE (test code = GFR) mL/min >=60 CREATININE (test code = CREAT) mg/dL 0.55-1.02 BUN/CREATININE RATIO (test code = BUN/CREA) 10-20 TOTAL PROTEIN (test code = PROT) gram/dL 6.4-8.2 ALBUMIN (test code = ALB) g/dL 3.4-5.0 GLOBULIN (test code = GLOB) gram/dL 2.7-4.2 ALBUMIN/GLOBULIN RATIO (test code = A/G) 0.75-1.50 CALCIUM (test code = CA) mg/dL 8.5-10.1 BILIRUBIN TOTAL (test code = BILT) mg/dL 0.0-1.0 SGOT/AST (test code = AST) IUnit/L 15-37 SGPT/ALT (test code = ALT) IUnit/L 12-78 ALKALINE PHOSPHATASE TOTAL (test code = ALKP) IUnit/L 45-117 [id number] 09:18:00* Test Item Value Reference Range Interpretation Comments MAGNESIUM (test code = MAG) mg/dL 1.8-2.4 CBC W/AUTO [id number] 08:58:00* Test Item Value Reference Range Interpretation Comments WHITE BLOOD CELL (test code = WBC) 6.9 K/mm3 4.5-12.5 N RED BLOOD CELL (test code = RBC) 4.31 mill/mm3 3.7-5.2 N HEMOGLOBIN (test code = HGB) 13.2 gram/dL 11.5-15.5 N HEMATOCRIT (test code = HCT) 42.2 % 36.0-46.0 N MEAN CELL VOLUME (test code = MCV) 97.9 fL 80-98 N MEAN CELL HGB (test code = MCH) 30.6 picogram 27.0-33.0 N MEAN CELL HGB CONCETRATION (test code = MCHC) 31.3 gram/dL 33.0-36. 0 L RED CELL DISTRIBUTION WIDTH (test code = RDW) 14.4 % 11.6-16. 2 N RED CELL DISTRIBUTION WIDTH SD (test code = RDW-SD) 52.0 fL 37 .0-51.0 H PLATELET COUNT (test code = PLT) 264 K/mm3 150-450 N MEAN PLATELET VOLUME (test code = MPV) 9.1 fL 6.7-11.0 N NEUTROPHIL % (test code = NT%) 66.1 % 39.0-69.0 N IMMATURE GRANULOCYTE % (test code = IG%) 1.0 % 0.0-5.0 N LYMPHOCYTE % (test code = LY%) 22.2 % 25.0-55.0 L MONOCYTE % (test code = MO%) 7.7 % 0.0-10.0 N EOSINOPHIL % (test code = EO%) 2.6 % 0.0-5.0 N BASOPHIL % (test code = BA%) 0.4 % 0.0-1.0 N NUCLEATED RBC % (test code = NRBC%) 0.0 % 0-0 N NEUTROPHIL # (test code = NT#) 4.53 K/mm3 1.8-7.7 N IMMATURE GRANULOCYTE # (test code = IG#) 0.07 x10 3/uL 0-0.03 H LYMPHOCYTE # (test code = LY#) 1.52 K/mm3 1.0-5.0 N MONOCYTE # (test code = MO#) 0.53 K/mm3 0-0.8 N EOSINOPHIL # (test code = EO#) 0.18 K/mm3 0.0-0.5 N BASOPHIL # (test code = BA#) 0.03 K/mm3 0.0-0.2 N NUCLEATED RBC # (test code = NRBC#) 0.00 K/mm3 0.0-0.1 N MANUAL DIFF REQUIRED (test code = MDIFF) NO [id number] 17:44:00* Test Item Value Reference Range Interpretation Comments GLUBED (test code = GLUBED) 104 mg/dL 74-106 N Performed by certified lease operator at [facility] COMPREHENSIVE METABOLIC [id number] 11:24:00* Test Item Value Reference Range Interpretation Comments SODIUM (test code = NA) 141 mmol/L 136-145 RESU LT VERIFIED BY REPEAT ANALYSIS POTASSIUM (test code = K) 3.8 mmol/L 3.5-5.1 N CHLORIDE (test code = CL) 108.0 mmol/L 98-107 H CARBON DIOXIDE (test code = CO2) 27.0 mmol/L 21-32 N Previously reported result: 27.0 mmol/LEdited by: IBLLY on 09/02/18:1124 ANION GAP (test code = GAP) 9.8 10-20 L GLUCOSE (test code = GLU) 153 mg/dL 74-106 H BLOOD UREA NITROGEN (test code = BUN) 57 mg/dL 7-18 H RESULT VERIFIED BY REPEAT ANALYSIS GLOMERULAR FILTRATION RATE (test code = GFR) 40 mL/min >=60 Estimated GFR by using Modified MDRD formula.Chronic kidney disease is defined as either kidney damageor GFR <60 mL/min/1.73 m2 for >3 months. CREATININE (test code = CREAT) 1.30 mg/dL 0.55-1.02 H Note change in reference range due to change in reagent. BUN/CREATININE RATIO (test code = BUN/CREA) 43.8 10-20 H TOTAL PROTEIN (test code = PROT) 6.0 gram/dL 6.4-8.2 L ALBUMIN (test code = ALB) 2.9 g/dL 3.4-5.0 L GLOBULIN (test code = GLOB) 3.1 gram/dL 2.7-4.2 N ALBUMIN/GLOBULIN RATIO (test code = A/G) 0.9 0.75-1.50 N CALCIUM (test code = CA) 8.4 mg/dL 8.5-10.1 L BILIRUBIN TOTAL (test code = BILT) 0.50 mg/dL 0.0-1.0 N SGOT/AST (test code = AST) 22 IUnit/L 15-37 N SGPT/ALT (test code = ALT) 25 IUnit/L 12-78 N ALKALINE PHOSPHATASE TOTAL (test code = ALKP) 71 IUnit/L 45-117 N Note change in reference range due to change in reagent. [id number] 11:24:00* Test Item Value Reference Range Interpretation Comments MAGNESIUM (test code = MAG) 1.4 mg/dL 1.8-2.4 L COMPREHENSIVE METABOLIC [id number] 10:39:00* Test Item Value Reference Range Interpretation Comments SODIUM (test code = NA) 141 mmol/L 136-145 RESU LT VERIFIED BY REPEAT ANALYSIS POTASSIUM (test code = K) 3.8 mmol/L 3.5-5.1 N CHLORIDE (test code = CL) 108.0 mmol/L 98-107 H CARBON DIOXIDE (test code = CO2) 27.0 mmol/L 21-32 N ANION GAP (test code = GAP) 10-20 GLUCOSE (test code = GLU) 153 mg/dL 74-106 H BLOOD UREA NITROGEN (test code = BUN) 57 mg/dL 7-18 H RESULT VERIFIED BY REPEAT ANALYSIS GLOMERULAR FILTRATION RATE (test code = GFR) 40 mL/min >=60 Estimated GFR by using Modified MDRD formula.Chronic kidney disease is defined as either kidney damageor GFR <60 mL/min/1.73 m2 for >3 months. CREATININE (test code = CREAT) 1.30 mg/dL 0.55-1.02 H Note change in reference range due to change in reagent. BUN/CREATININE RATIO (test code = BUN/CREA) 43.8 10-20 H TOTAL PROTEIN (test code = PROT) 6.0 gram/dL 6.4-8.2 L ALBUMIN (test code = ALB) 2.9 g/dL 3.4-5.0 L GLOBULIN (test code = GLOB) 3.1 gram/dL 2.7-4.2 N ALBUMIN/GLOBULIN RATIO (test code = A/G) 0.9 0.75-1.50 N CALCIUM (test code = CA) 8.4 mg/dL 8.5-10.1 L BILIRUBIN TOTAL (test code = BILT) 0.50 mg/dL 0.0-1.0 N SGOT/AST (test code = AST) 22 IUnit/L 15-37 N SGPT/ALT (test code = ALT) 25 IUnit/L 12-78 N ALKALINE PHOSPHATASE TOTAL (test code = ALKP) 71 IUnit/L 45-117 N Note change in reference range due to change in reagent. [id number] 10:39:00* Test Item Value Reference Range Interpretation Comments MAGNESIUM (test code = MAG) 1.4 mg/dL 1.8-2.4 L COMPREHENSIVE METABOLIC [id number] 10:25:00* Test Item Value Reference Range Interpretation Comments SODIUM (test code = NA) 141 mmol/L 136-145 RESU LT VERIFIED BY REPEAT ANALYSIS POTASSIUM (test code = K) 3.8 mmol/L 3.5-5.1 N CHLORIDE (test code = CL) 108.0 mmol/L 98-107 H CARBON DIOXIDE (test code = CO2) mmol/L 21-32 ANION GAP (test code = GAP) 10-20 GLUCOSE (test code = GLU) mg/dL 74-106 BLOOD UREA NITROGEN (test code = BUN) mg/dL 7-18 GLOMERULAR FILTRATION RATE (test code = GFR) mL/min >=60 CREATININE (test code = CREAT) mg/dL 0.55-1.02 BUN/CREATININE RATIO (test code = BUN/CREA) 10-20 TOTAL PROTEIN (test code = PROT) gram/dL 6.4-8.2 ALBUMIN (test code = ALB) g/dL 3.4-5.0 GLOBULIN (test code = GLOB) gram/dL 2.7-4.2 ALBUMIN/GLOBULIN RATIO (test code = A/G) 0.75-1.50 CALCIUM (test code = CA) mg/dL 8.5-10.1 BILIRUBIN TOTAL (test code = BILT) mg/dL 0.0-1.0 SGOT/AST (test code = AST) IUnit/L 15-37 SGPT/ALT (test code = ALT) IUnit/L 12-78 ALKALINE PHOSPHATASE TOTAL (test code = ALKP) IUnit/L 45-117 [id number] 10:25:00* Test Item Value Reference Range Interpretation Comments MAGNESIUM (test code = MAG) mg/dL 1.8-2.4 CBC W/AUTO [id number] 09:15:00* Test Item Value Reference Range Interpretation Comments WHITE BLOOD CELL (test code = WBC) 6.4 K/mm3 4.5-12.5 N RED BLOOD CELL (test code = RBC) 4.22 mill/mm3 3.7-5.2 N HEMOGLOBIN (test code = HGB) 12.8 gram/dL 11.5-15.5 N HEMATOCRIT (test code = HCT) 39.3 % 36.0-46.0 N MEAN CELL VOLUME (test code = MCV) 93.1 fL 80-98 N MEAN CELL HGB (test code = MCH) 30.3 picogram 27.0-33.0 N MEAN CELL HGB CONCETRATION (test code = MCHC) 32.6 gram/dL 33.0-36. 0 L RED CELL DISTRIBUTION WIDTH (test code = RDW) 14.5 % 11.6-16. 2 N RED CELL DISTRIBUTION WIDTH SD (test code = RDW-SD) 48.3 fL 37 .0-51.0 N PLATELET COUNT (test code = PLT) 281 K/mm3 150-450 N MEAN PLATELET VOLUME (test code = MPV) 9.2 fL 6.7-11.0 N NEUTROPHIL % (test code = NT%) 71.1 % 39.0-69.0 H IMMATURE GRANULOCYTE % (test code = IG%) 1.6 % 0.0-5.0 N LYMPHOCYTE % (test code = LY%) 18.8 % 25.0-55.0 L MONOCYTE % (test code = MO%) 7.0 % 0.0-10.0 N EOSINOPHIL % (test code = EO%) 1.2 % 0.0-5.0 N BASOPHIL % (test code = BA%) 0.3 % 0.0-1.0 N NUCLEATED RBC % (test code = NRBC%) 0.0 % 0-0 N NEUTROPHIL # (test code = NT#) 4.57 K/mm3 1.8-7.7 N IMMATURE GRANULOCYTE # (test code = IG#) 0.10 x10 3/uL 0-0.03 H LYMPHOCYTE # (test code = LY#) 1.21 K/mm3 1.0-5.0 N MONOCYTE # (test code = MO#) 0.45 K/mm3 0-0.8 N EOSINOPHIL # (test code = EO#) 0.08 K/mm3 0.0-0.5 N BASOPHIL # (test code = BA#) 0.02 K/mm3 0.0-0.2 N NUCLEATED RBC # (test code = NRBC#) 0.00 K/mm3 0.0-0.1 N CBC W/AUTO [id number] 09:13:00* Test Item Value Reference Range Interpretation Comments WHITE BLOOD CELL (test code = WBC) K/mm3 4.5-12.5 RED BLOOD CELL (test code = RBC) mill/mm3 3.7-5.2 HEMOGLOBIN (test code = HGB) 12.8 gram/dL 11.5-15.5 N HEMATOCRIT (test code = HCT) 39.3 % 36.0-46.0 N MEAN CELL VOLUME (test code = MCV) fL 80-98 MEAN CELL HGB (test code = MCH) picogram 27.0-33.0 MEAN CELL HGB CONCETRATION (test code = MCHC) gram/dL 33.0-36. 0 RED CELL DISTRIBUTION WIDTH (test code = RDW) % 11.6-16. 2 RED CELL DISTRIBUTION WIDTH SD (test code = RDW-SD) fL 37 .0-51.0 PLATELET COUNT (test code = PLT) K/mm3 150-450 MEAN PLATELET VOLUME (test code = MPV) fL 6.7-11.0 NEUTROPHIL % (test code = NT%) % 39.0-69.0 IMMATURE GRANULOCYTE % (test code = IG%) % 0.0-5.0 LYMPHOCYTE % (test code = LY%) % 25.0-55.0 MONOCYTE % (test code = MO%) % 0.0-10.0 EOSINOPHIL % (test code = EO%) % 0.0-5.0 BASOPHIL % (test code = BA%) % 0.0-1.0 NEUTROPHIL # (test code = NT#) K/mm3 1.8-7.7 LYMPHOCYTE # (test code = LY#) K/mm3 1.0-5.0 MONOCYTE # (test code = MO#) K/mm3 0-0.8 EOSINOPHIL # (test code = EO#) K/mm3 0.0-0.5 BASOPHIL # (test code = BA#) K/mm3 0.0-0.2 [id number] 18:36:00* Test Item Value Reference Range Interpretation Comments DIGOXIN (test code = DIG) 3.2 ng/mL 0.90-2.0 Rosy leon called to [id number] by [email or web address] 09/01/18 [id number] results verified and read back by Nurse? YNOTE: Spironolactone interference may cause a decrease inreported Digoxin results of 11-30 %. BASIC METABOLIC [id number] 18:00:00* Test Item Value Reference Range Interpretation Comments SODIUM (test code = NA) 136 mmol/L 136-145 N POTASSIUM (test code = K) 4.1 mmol/L 3.5-5.1 N CHLORIDE (test code = CL) 103.0 mmol/L 98-107 N CARBON DIOXIDE (test code = CO2) 24.0 mmol/L 21-32 N ANION GAP (test code = GAP) 13.1 10-20 N GLUCOSE (test code = GLU) 114 mg/dL 74-106 H BLOOD UREA NITROGEN (test code = BUN) 78 mg/dL 7-18 H GLOMERULAR FILTRATION RATE (test code = GFR) 26 mL/min >=60 Estimated GFR by using Modified MDRD formula.Chronic kidney disease is defined as either kidney damageor GFR <60 mL/min/1.73 m2 for >3 months. CREATININE (test code = CREAT) 1.90 mg/dL 0.55-1.02 H Note change in reference range due to change in reagent. BUN/CREATININE RATIO (test code = BUN/CREA) 41.1 10-20 H CALCIUM (test code = CA) 8.4 mg/dL 8.5-10.1 L HEPATIC FUNCTION [id number] 18:00:00* Test Item Value Reference Range Interpretation Comments TOTAL PROTEIN (test code = PROT) 7.0 gram/dL 6.4-8.2 N ALBUMIN (test code = ALB) 3.1 g/dL 3.4-5.0 L GLOBULIN (test code = GLOB) 3.9 gram/dL 2.7-4.2 N ALBUMIN/GLOBULIN RATIO (test code = A/G) 0.8 0.75-1.50 N BILIRUBIN TOTAL (test code = BILT) 0.60 mg/dL 0.0-1.0 N BILIRUBIN DIRECT (test code = BILD) 0.15 mg/dL 0.0-0.20 N SGOT/AST (test code = AST) 22 IUnit/L 15-37 N SGPT/ALT (test code = ALT) 27 IUnit/L 12-78 N ALKALINE PHOSPHATASE TOTAL (test code = ALKP) 78 IUnit/L 45-117 N Note change in reference range due to change in reagent. [id number] 18:00:00* Test Item Value Reference Range Interpretation Comments LIPASE (test code = LIP) 131 U/L 73.0-393.0 N THYROID STIMULATING [id number] 18:00:00* Test Item Value Reference Range Interpretation Comments THYROID STIMULATING HORMONE (test code = TSH) 7.740 uIU/mL 0.36-3.7 4 H TSH REFERENCE RANGES: EUTHYROID: 0.35 - 4.3 mIU/mL HYPO : > 5.5 mIU/mL HYPER : < 0.35 mIU/mL [id number] 18:00:00* Test Item Value Reference Range Interpretation Comments TROPONIN-I (test code = TROPI) <0.015 ng/mL 0-0.045 N BASIC METABOLIC [id number] 17:43:00* Test Item Value Reference Range Interpretation Comments SODIUM (test code = NA) 136 mmol/L 136-145 N POTASSIUM (test code = K) 4.1 mmol/L 3.5-5.1 N CHLORIDE (test code = CL) 103.0 mmol/L 98-107 N CARBON DIOXIDE (test code = CO2) mmol/L 21-32 ANION GAP (test code = GAP) 10-20 GLUCOSE (test code = GLU) mg/dL 74-106 BLOOD UREA NITROGEN (test code = BUN) mg/dL 7-18 GLOMERULAR FILTRATION RATE (test code = GFR) mL/min >=60 CREATININE (test code = CREAT) mg/dL 0.55-1.02 BUN/CREATININE RATIO (test code = BUN/CREA) 10-20 CALCIUM (test code = CA) mg/dL 8.5-10.1 HEPATIC FUNCTION [id number] 17:43:00* Test Item Value Reference Range Interpretation Comments TOTAL PROTEIN (test code = PROT) gram/dL 6.4-8.2 ALBUMIN (test code = ALB) g/dL 3.4-5.0 GLOBULIN (test code = GLOB) gram/dL 2.7-4.2 ALBUMIN/GLOBULIN RATIO (test code = A/G) 0.75-1.50 BILIRUBIN TOTAL (test code = BILT) mg/dL 0.0-1.0 BILIRUBIN DIRECT (test code = BILD) mg/dL 0.0-0.20 SGOT/AST (test code = AST) IUnit/L 15-37 SGPT/ALT (test code = ALT) IUnit/L 12-78 ALKALINE PHOSPHATASE TOTAL (test code = ALKP) IUnit/L 45-117 [id number] 17:43:00* Test Item Value Reference Range Interpretation Comments LIPASE (test code = LIP) U/L 73.0-393.0 THYROID STIMULATING [id number] 17:43:00* Test Item Value Reference Range Interpretation Comments THYROID STIMULATING HORMONE (test code = TSH) uIU/mL 0.36-3.7 4 [id number] 17:43:00* Test Item Value Reference Range Interpretation Comments TROPONIN-I (test code = TROPI) ng/mL 0-0.045 URINALYSIS [id number] 17:20:00* Test Item Value Reference Range Interpretation Comments UA COLOR (test code = COLU) GREEN YELLOW A UA APPEARANCE (test code = APPU) Cloudy CLEAR A UA GLUCOSE DIPSTICK (test code = DGLUU) NEGATIVE mg/dL NEGATIVE UA BILIRUBIN DIPSTICK (test code = BILU) 1+ (Small 0.5-1.0) NEGATIV E UA KETONE DIPSTICK (test code = KETU) TRACE mg/dL NEGATIVE UA SPECIFIC GRAVITY (test code = SGU) 1.010 1.001-1.035 UA BLOOD DIPSTICK (test code = DONTA) 3+ (Large) NEGATIVE A UA PH DIPSTICK (test code = JOSE MARTIN) 8.0 5.0-8.0 UA PROTEIN DIPSTICK (test code = PROU) 1+ mg/dL Neg-15 UA UROBILINIOGEN DIPSTICK (test code = URO) 4.0 (2+) mg/dL 0.0-0.2 UA NITRITE DIPSTICK (test code = RADHA) NEGATIVE NEGATIVE UA LEUKOCYTE ESTERASE W REFLEX (test code = LEUUR) 3+ NEG ATIVE A UA WBC (test code = WBCU) 6-10 per HPF 0-5 A Pr eviously reported result: 3-5 per HPFEdited by: JUNILT on 09/01/18:67525909/01/18 1719: WBC previously reported as: 3-5 per HPF UA RBC (test code = RBCU) 3-5 per HPF 0-5 A Pr eviously reported result: 6-10 per HPFEdited by: JUNILT on 09/01/18:736052 1720: RBC previously reported as: 6-10 per HPF UA EPITHELIAL CELLS (test code = EPIU) FEW per HPF Few UA BACTERIA (test code = BACU) FEW per HPF NONE UA MUCUS (test code = MUCU) FEW per LPF NONE-FEW Urine Source? Clean Catch- XR CHEST 1 [id number] 17:09:00 FAX: Mary Grace iMr DO [place]: B St: DIS FAX: Latrell Jeffers MD [phone] Name: MARCELLA PORTER [facility] : 1940 Age/S: 78/F [address] Unit #: [id number] Loc: [place] [address] Phys: Mary Grace Mir DO Acct: [id number] Dis Date: Status: DIS IN PHONE #: [phone] Exam Date: 09/01/2018 1638 FAX #: [phone] Reason: near syncope EXAMS: CPT CODE: [id number] XR CHEST 1 V 15408 REASON FOR EXAM: near syncope Exam Order D ate: 09/01/2018 4:31 PM Ordering Oseas: Mary Grace Mir DO PROCEDURE: - XR CHEST 1 V COMPARISON: AP chest x-ray June FINDINGS: There is a left subclavian vein ICD/pacem cristopher with leads terminating in the regions of the right atrium, right vent ricle, and coronary sinus. Lung volumes are diminished and t here is subsegmental atelectasis in the lung bases. Upper lungs are clear. Cardiomediastinal silhouette is normal in size. 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 The spine is scoliotic with multilevel degenerative changes. Surgical clips in the right upper abdomen are likely from a prior cholecystectomy. IMPRESSION: Low lung volumes with bibasilar subsegmental atelectasis. The upper lungs are clear. at 1709 Reported and signed by: Guero richards MD CC: Mary Grace Mir DO; Latrell Knapp MD Tech nologist: Eren MILLER) Trnscrd Date/Ti me/By: 09/01/2018 (9077) : By: [email or web address] Orig Print D/T: S: 09/01/2018 (9939) PAGE 1 Signed Report - XR CHEST 1 [id number] 17:09:00 FAX: Mary Grace Mir DO [place]: St: REG FAX: Latrell Jeffers MD [phone] Name: MARCELLA JOHNSON [facility] : 1940 Age/S: 78/F [address] [facility] Unit #: [id number] Loc: [place] [address] Phys: Mary Grace Mir DO Acct: [id number] Dis Date: Status: REG ER PHONE #: [phone] Exam Date: 09/01/2018 1638 FAX #: [phone] Reason: near syncope EXAMS: CPT CODE: [id number] XR CHEST 1 V 12474 REASON FOR EXAM: near syncope Exam Order D ate: 09/01/2018 4:31 PM Ordering M.Kieran: Mary Grace Mir DO PROCEDURE: - XR CHEST 1 V COMPARISON: AP chest x-ray June FINDINGS: There is a left subclavian vein ICD/pacem cristopher with leads terminating in the regions of the right atrium, right vent ricle, and coronary sinus. Lung volumes are diminished and t here is subsegmental atelectasis in the lung bases. Upper lungs are clear. Cardiomediastinal silhouette is normal in size. 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 The spine is scoliotic with multilevel degenerative changes. Surgical clips in the right upper abdomen are likely from a prior cholecystectomy. IMPRESSION: Low lung volumes with bibasilar subsegmental atelectasis. The upper lungs are clear. at 1701 Reported and signed by: Guero richards MD CC: Mary Grace Mir DO; Latrell Knapp MD Ashish hnologist: Eren GU(R) Trnscrd Date/T sudha/By: 09/01/2018 (7414) : By: [email or web address] PAGE 1 Signed Report - XR CHEST 1 [id number] 17:09:00 FAX: Mary Grace Mir DO [place]: St: DIS FAX: Y Latrell Knapp MD [phone] Name: CHARLOTTEMARCELLAPAMELA CAMERON [facility] : 1940 Age/S: 78/F [address] [facility] #: [id number] Loc: [place] [address] Phys: Mary Grace Mir DO Acct: [id number] Dis Date: Status: DIS IN PHONE #: [phone] Exam Date: 09/01/2018 1638 FAX #: [phone] Reason: near syncope EXAMS: CPT CODE: [id number] XR CHEST 1 V 11641 REASON FOR EXAM: near syncope Exam Order D ate: 09/01/2018 4:31 PM Ordering M.DPaco: Mary Grace Mir DO PROCEDURE: - XR CHEST 1 V COMPARISON: AP chest x-ray June FINDINGS: There is a left subclavian vein ICD/pacem cristopher with leads terminating in the regions of the right atrium, right vent ricle, and coronary sinus. Lung volumes are diminished and t here is subsegmental atelectasis in the lung bases. Upper lungs are clear. Cardiomediastinal silhouette is normal in size. 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 The spine is scoliotic with multilevel degenerative changes. Surgical clips in the right upper abdomen are likely from a prior cholecystectomy. IMPRESSION: Low lung volumes with bibasilar subsegmental atelectasis. The upper lungs are clear. at 1709 Reported and signed by: Guero richards MD CC: Mary Grace Mir DO; Latrell Knapp MD Tech nologist: Eren Murillo RT(R) Trnscrd Date/Ti me/By: 09/01/2018 (8833) : By: [email or web address] Orig Print D/T: S: 09/01/2018 (4232) PAGE 1 Signed Report B-TYPE NATRIURETIC [id number] 17:03:00* Test Item Value Reference Range Interpretation Comments B-TYPE NATRIURETIC PEPTIDE (test code = BNP) 41.11 pgram/mL 0-100 N PROTHROMBIN [id number] 16:35:00* Test Item Value Reference Range Interpretation Comments PROTHROMBIN TIME PATIENT (test code = PTP) 15.8 seconds 9.0-14.0 H INTERNATIONAL NORMAL RATIO (test code = INR) 1.4 0.8-1.2 H The therapeutic range for oral anticoagulant therapy formost indications is an international normalized ratio (INR)of between 2.0 and 3.0. The recommended therapeutic INRrange for various clinical situations is listed below: Clinical Situation INR range Pulmonary e mbolism treatment (2.0-3.0)Venous thrombosis treatmentVenous thrombosis prophylaxis (high risk surgery)Prevention of systemic embolism from: Acute myocardial infarction Valvular heart disease Atrial fibrillation Mechanical prosthetic heart valves (2.5-3.5) IS PATIENT ON ANTICOAGULANTS? NTHROMBOPLASTIN TIME [id number] 16:35:00* Test Item Value Reference Range Interpretation Comments THROMBOPLASTIN TIME PARTIAL (test code = PTT) 29.4 seconds 25.0-36. 5 N IS PATIENT ON ANTICOAGULANTS? NURINALYSIS [id number] 16:28:00* Test Item Value Reference Range Interpretation Comments UA COLOR (test code = COLU) GREEN YELLOW A UA APPEARANCE (test code = APPU) Cloudy CLEAR A UA GLUCOSE DIPSTICK (test code = DGLUU) NEGATIVE mg/dL NEGATIVE UA BILIRUBIN DIPSTICK (test code = BILU) 1+ (Small 0.5-1.0) NEGATIV E UA KETONE DIPSTICK (test code = KETU) TRACE mg/dL NEGATIVE UA SPECIFIC GRAVITY (test code = SGU) 1.010 1.001-1.035 UA BLOOD DIPSTICK (test code = DONTA) 3+ (Large) NEGATIVE A UA PH DIPSTICK (test code = JOSE MARTIN) 8.0 5.0-8.0 UA PROTEIN DIPSTICK (test code = PROU) 1+ mg/dL Neg-15 UA UROBILINIOGEN DIPSTICK (test code = URO) 4.0 (2+) mg/dL 0.0-0.2 UA NITRITE DIPSTICK (test code = RADHA) NEGATIVE NEGATIVE UA LEUKOCYTE ESTERASE W REFLEX (test code = LEUUR) 3+ NEG ATIVE A UA WBC (test code = WBCU) 3-5 per HPF 0-5 UA RBC (test code = RBCU) 6-10 per HPF 0-5 UA EPITHELIAL CELLS (test code = EPIU) FEW per HPF Few UA BACTERIA (test code = BACU) FEW per HPF NONE UA MUCUS (test code = MUCU) FEW per LPF NONE-FEW Urine Source? Clean CatchURINALYSIS [id number] 16:27:00* Test Item Value Reference Range Interpretation Comments UA COLOR (test code = COLU) GREEN YELLOW A UA APPEARANCE (test code = APPU) Cloudy CLEAR A UA GLUCOSE DIPSTICK (test code = DGLUU) NEGATIVE mg/dL NEGATIVE UA BILIRUBIN DIPSTICK (test code = BILU) 1+ (Small 0.5-1.0) NEGATIV E UA KETONE DIPSTICK (test code = KETU) TRACE mg/dL NEGATIVE UA SPECIFIC GRAVITY (test code = SGU) 1.010 1.001-1.035 UA BLOOD DIPSTICK (test code = DONTA) 3+ (Large) NEGATIVE A UA PH DIPSTICK (test code = JOSE MARTIN) 8.0 5.0-8.0 UA PROTEIN DIPSTICK (test code = PROU) 1+ mg/dL Neg-15 UA UROBILINIOGEN DIPSTICK (test code = URO) 4.0 (2+) mg/dL 0.0-0.2 UA NITRITE DIPSTICK (test code = RADHA) NEGATIVE NEGATIVE UA LEUKOCYTE ESTERASE W REFLEX (test code = LEUUR) 3+ NEG ATIVE A UA WBC (test code = WBCU) per HPF 0-5 UA RBC (test code = RBCU) per HPF 0-5 UA EPITHELIAL CELLS (test code = EPIU) per HPF Few UA BACTERIA (test code = BACU) per HPF NONE Urine Source? Clean CatchCBC W/O [id number] 16:17:00* Test Item Value Reference Range Interpretation Comments WHITE BLOOD CELL (test code = WBC) 7.9 K/mm3 4.5-12.5 N RED BLOOD CELL (test code = RBC) 4.40 mill/mm3 3.7-5.2 N HEMOGLOBIN (test code = HGB) 13.3 gram/dL 11.5-15.5 N HEMATOCRIT (test code = HCT) 41.8 % 36.0-46.0 N MEAN CELL VOLUME (test code = MCV) 95.0 fL 80-98 N MEAN CELL HGB (test code = MCH) 30.2 picogram 27.0-33.0 N MEAN CELL HGB CONCETRATION (test code = MCHC) 31.8 gram/dL 33.0-36. 0 L RED CELL DISTRIBUTION WIDTH (test code = RDW) 14.6 % 11.6-16. 2 N PLATELET COUNT (test code = PLT) 309 K/mm3 150-450 N MEAN PLATELET VOLUME (test code = MPV) 9.5 fL 6.7-11.0 N CBC W/O [id number] 16:16:00* Test Item Value Reference Range Interpretation Comments WHITE BLOOD CELL (test code = WBC) K/mm3 4.5-12.5 RED BLOOD CELL (test code = RBC) mill/mm3 3.7-5.2 HEMOGLOBIN (test code = HGB) 13.3 gram/dL 11.5-15.5 N HEMATOCRIT (test code = HCT) 41.8 % 36.0-46.0 N MEAN CELL VOLUME (test code = MCV) fL 80-98 MEAN CELL HGB (test code = MCH) picogram 27.0-33.0 MEAN CELL HGB CONCETRATION (test code = MCHC) gram/dL 33.0-36. 0 RED CELL DISTRIBUTION WIDTH (test code = RDW) % 11.6-16. 2 PLATELET COUNT (test code = PLT) K/mm3 150-450 MEAN PLATELET VOLUME (test code = MPV) fL 6.7-11.0 CT BRAIN [id number] 10:21:00 [facility] [address] [address] Patient Name: MARCELLA PORTER MR #: [id number] : 1940 Age/Sex: 78/F Req #: [id number] Adm Physician: Ordered by: ANGELINA CURRIE MD Report #: [id number] Location: ER Room/Bed: Procedure: [id number] CT /CT BRAIN WO Exam Date: 08/25/18 Exam Time: 0950 REPORT STATUS: Signed Exam: Head CT without contrast History: Possible stroke, right arm numbness Comparison s tudies: None available on the PACS at the time of comparison Technique: Axial images were obtained from the skull base to the vertex. Coronal and sagi ttal images reconstructed from the axial data. Dose modulation, iterative rec onstruction, and/or weight based adjustment of the mA/kV was utilized to reduc e the radiation dose to as low as reasonably achievable. Radiation dose : Total DLP: 921 mGy*cm. Estimated effective dose: DLP x 0.015 Intraven ous contrast: None Findings: Scalp: No abnormalities. Bones: No frac tures, blastic or lytic lesions. Brain sulci: Mildly prominent. Ventricle s: Mild compensatory dilatation. No hydrocephalus. Extra-axial spaces: No mass es, no fluid collection. Parenchyma: No mass, acute hemorrhage or acute cortical insult. Cortical-based dystrophic calcification in the right superio r parietal lobule without surrounding edema or mass effect may be sequela of p rior infection/inflammation or hemorrhage. Scattered ill-defined confluent hyp odensities in the supratentorial white matter are nonspecific but are most com patible with chronic microvascular ischemic changes. Sellar/suprasellar r egion: No abnormalities. Craniocervical junction: Patent foramen magnum. No Ch iari one malformation. Included paranasal sinuses: The left sphenoid and impression image left maxillary sinus are partially opacified and contain non specific secretions. Incidental findings: Lens replacements for previous cataract surgery. Mild chronic inflammatory changes in the left mastoids. A therosclerotic calcifications in the carotid siphons and in the right intradur al vertebral artery. IMPRESSION: 1. No acute intracranial abnormali ties. 2. Nonspecific left maxillary and sphenoid sinus inflammatory changes. Chronic findings: 1. Mild generalized volume loss. 2. Moderate micro vascular ischemic changes. 3. Chronic right parietal dystrophic calcific dict ation. Signed by: Dr. Estrellita Sharp M.D. on 08/25/2018 10:26 AM Dict ated By: ESTRELLITA SHARP MD 1026 COPY TO: PIA CURRIE MD CHEM [id number] 11:47:001.6MH SoutheastELECTROLYTES 2018-08-23 11:47:0016.3MH HlyinnkgpYYSCJTGLAKUA1771-33-68 11:47:0083 [facility] XOJYNCMSFKIN3121-02-61 11:47:008.9 UhckpvmfcNHKJSMXMVJTO2577-13-95 11:47:0019 NlltkzxdaQZXDAOVUMLTN7397-18-49 11:47:30827EF PelszgegdNAELZPRVCYVO0796-22-11 11:47:003.3MH ChvzhfsxfDQSLUPWKRTUH0184-07-11 11:47:000.70 [facility] DBHOPWSXAXBL9678-06-86 11:47:64118TG KtezplrzzBJNXJODPFGKK3288-54-70 11:47:12773 TrvtauwrnFLBXAIOBIRYD4565-71-37 11:47:0014 YibmbyxzpOMEVPPSNQC1950-01-87 11:47:00* Test Item Value Reference Range Interpretation Comments MCH (test code = MCH) 30.6 pg 27.0-31.0 NjqdlwdouKPFSNNASMK0490-15-28 11:47:0094.4 NfjxeypzxAZNCMQKPZR5237-40-28 11:47:0016.4 YwiajdoygVUIRYXHZWI4866-85-34 11:47:0032.4 SoutheastHEMATOLOGY 2018-08-23 11:47:004.91 PjsriznqiOJMOIOLDZG0609-03-42 11:47:[facility].1[facility] RHOACYMRUA8883-80-73 11:47:0046.3M NhulfxrkeDASLVXFASR5689-58-36 11:47:0015.0 DqilcmxjeSUXLYEUIOM8036-26-33 11:47:03438EH XpoplpjelPKVPHCNHKN9114-40-57 11:47:007.9 MpfurkvnxHDLATVHUGC4842-30-56 11:47:000.1M [facility]HEMATOLOG[facility] 2018-08-23 11:47:005.6M VrwloaushRXUKQKIFIE7640-17-42 11:47:000.7[facility] CDXAZXIYCE3756-09-79 11:47:001.5 MlsievmlqXNBLAZXIDA1755-83-85 11:47:000.2M EwkoilgxgMRQBUEIPUL3327-94-36 11:47:002.7 FqewwxyfmVTEPNLRXSW3579-05-79 11:47:000.7[facility] HospitalYolmtyhfcJSKSQMSRJZ0499-98-57 11:47:008.0 [facility] 2018-08-23 11:47:0069.6M AicvtcuxqMYSZAEKETX3529-48-12 11:47:0019.0 [facility] CARDIAC AHGOKDO7763-67-59 20:02:000.39 SoutheastURINE AND AXUGP4747-62-46 18:05:003 [facility] VOMKI9010-92-36 18:05:001MH [facility]UR[facility] AND HSVML2930-34-95 18:05:00Negative (08/20/18 1:05 PM) [facility] STOOL 2018-08-20 18:05:005 [facility] AND EYRYC2944-09-47 18:05:00Negative *NA*(08/20/18 1:05 PM)[facility] AND QSPYE4472-52-68 18:05:00Negative (08/20/18 1:05 PM)[facility] SVWVW2003-36-02 18:05:00Negative (08/20/18 1:05 PM)[facility] HXXTT6704-61-59 18:05:00* Test Item Value Reference Range Interpretation Comments UA pH (test code = UA pH) 5.0 1 5.0-8.0 [facility]UR[facility] AND OFPCZ7443-49-84 18:05:00* Test Item Value Reference Range Interpretation Comments UA Spec Grav (test code = UA Spec Grav) 1.023 1 [facility] KOKRL6983-06-17 18:05:00Yellow *NA*(08/20/18 1:05 PM)MH [facility] DHWOU2122-74-52 18:05:00Slight *ABN*(08/20/18 1:05 PM) SoutheastCARDIAC QZGJWSE1545-30-89 14:37:79912YA SoutheastCARDIAC ENZYMES 2018-08-20 14:37:000.64MH SoutheastCHEM QQONQ9631-30-77 14:37:0063MH [facility] CHEM MSZBM0259-47-66 14:37:003.1MH SoutheastCHEM ETBQD9589-62-85 14:37:006.9MH SoutheastCHEM BHNCB6099-02-26 14:37:0029 SoutheastCHEM LLMYJ0991-71-66 14:37:004.2MH SoutheastCHEM WAFDL8056-45-68 14:37:001.0MH SoutheastCHEM PANEL 2018-08-20 14:37:0028MH SoutheastCHEM CLNHZ0574-28-54 14:37:0078MH SoutheastCHEM LBJPT4677-24-19 14:37:39993LX SoutheastCHEM YTVMT4550-14-73 14:37:0020MH SoutheastCHEM AXLXA8393-49-33 14:37:008.6MH SoutheastCHEM CAAFH4303-22-29 14:37:30177WZ SoutheastCHEM NKKYQ1478-79-77 14:37:0016MH SoutheastCHEM PANEL 2018-08-20 14:37:000.88MH SoutheastCHEM CRYWB4274-57-07 14:37:72687JT [facility] CHEM LEOPY3938-51-31 14:37:003.8MH SoutheastCHEM GYTWJ9450-51-10 14:37:00* Test Item Value Reference Range Interpretation Comments A/G Ratio (test code = A/G Ratio) 0.8 1 0.7-1.6 [facility] VLYMG0360-30-02 14:37[facility] NBCUO6647-66-80 14:37:00* Test Item Value Reference Range Interpretation Comments B/C Ratio (test code = B/C Ratio) 18 1 6-25 [facility] HospitalHocsiymlqNVQOTXMSHN1053-61-07 14:37:00* Test Item Value Reference Range Interpretation Comments INR (test code = INR) 1.04 1 0.85-1.17 [facility] HospitalWuqlfaymjYIZSPCMDEE4768-81-15 14:37:00* Test Item Value Reference Range Interpretation Comments PT (test code = PT) 13.4 s 12.0-14.7 [facility] HospitalSompnrlflCIWWVPCEOJ6586-76-67 14:37:00* Test Item Value Reference Range Interpretation Comments MCH (test code = MCH) 30.8 pg 27.0-31.0 [facility] HospitalWwybfnmxcVYYZGRYOUU6422-74-35 14:37:0043.5[facility] HospitalHexyfhaqoSXUUJYQBLX9259-99-91 14:37:0094.0[facility] HospitalVubgtysioNKAFCQIKMW6454-10-35 14:37:0016.[facility] SoutheastHEMATOLOGY 2018-08-20 14:37:0032.8[facility] HospitalZalbjjzlpELWTLPPMOP7503-49-52 14:37:008.3[facility] QOWAXUFYBO1360-04-02 14:37:80896VKFarren Memorial HospitalYwfuqpyfcUCRIREXSRP7417-02-27 14:37:008.3ML[facility] HospitalUjhgkqxugSBPGWKYXOE0101-35-84 14:37:004.63[facility] HospitalEudariaqyMGCRMQENPZ9366-68-08 14:37:0014.3ML[facility] HospitalNokbvlkbxYXPJTUZHGI5852-31-72 14:37:00* Test Item Value Reference Range Interpretation Comments PTT (test code = PTT) 28.2 s 22.9-35.8 [facility] HospitalGsjzowntvXJHILLPNAO3318-18-75 14:37:006.4[facility] HospitalCltpcspawVRZKWPBZBE0665-17-83 14:37:000.7[facility] HospitalKexnoyfefBXJFBXCQZM4913-73-95 14:37:001.1M [facility]HEMATOLOGY 2018-08-20 14:37:000.1M KdfuakmhgVFVBESLIHD1903-26-63 14:37:000.1MH [facility] MREDNTZTQT1557-34-99 14:37:000.8 DatcawvtqMYDTHCVLAE9463-64-88 14:37:008.0 FnemqkvklQJUJISAFGX7142-06-61 14:37:001.6MH EidwrdeghWEAKNNSMEC8734-18-02 14:37:0013.2M TgyluysxrLGQTULAYSH8195-25-30 14:37:0076.4 [facility] UZOUXKVJRGET6531-86-10 19:30:0011.9 RbzuoucdbNGBNHOIYQZNM3784-41-36 19:30:0064 GqexnvjucYTCOJERBHBTM5905-21-56 19:30:004.9 EbdvevxdkEXGEMNZHCOPA0015-96-92 19:30:28704MW SjfozrykuHUEATPYIJUXZ5342-97-31 19:30:0024 [facility] JDYAHLEHIIMH9138-61-70 19:30:009.1M ScrmkafbrGDGBPWBICSYG8690-43-52 19:30:16079 IryqffetaKSKBACCEXIHW6399-47-47 19:30:84725XR RzlnrkyulESHSCFWYLOHF4427-09-53 19:30:0017 JxipmkxolTAUCUMJWVNNF4033-95-75 19:30:000.87 [facility]Y 2018-08-15 19:30:000.1M UuvpcqrnfMKHFGEFLBL6932-95-17 19:30:000.9[facility] IWSFNBXPIK0984-11-60 19:30:001.6M QdhzutmltNAWWSGECNG0302-06-87 19:30:004.2M CsfpjdcliMXUKXSJLZD5177-69-65 19:30:000.5 NstrqakxiHGXTLCQPXT8530-41-02 19:30:001.7 WkpawtzntSERVLHRCNU6967-20-06 19:30:000.1M [facility]HEMATOLOGY 2018-08-15 19:30:0026.4 PhijgwsyfGSFPCXMMHR4004-40-58 19:30:0063.9[facility] KRPBCAEPSZ1352-58-85 19:30:007.2M QwwjtkwrjWOUWUFWBWN7155-07-52 19:30:00* Test Item Value Reference Range Interpretation Comments INR (test code = INR) 1.52 1 0.85-1.17 QgkfgyoupCKSBYZIJLV1001-82-55 19:30:00* Test Item Value Reference Range Interpretation Comments PT (test code = PT) 18.0 s 12.0-14.7 [facility] HospitalTerjqejoaFBRRHYMCYR1793-18-49 19:30:00* Test Item Value Reference Range Interpretation Comments PTT (test code = PTT) 29.8 s 22.9-35.8 [facility] HospitalPrjulyrdaMQHUMFKQWF7245-10-28 19:30:83570MUFarren Memorial HospitalTksptrhycFPEQRTZSDB1354-23-29 19:30:0032.3M WjzpqpptpLTKBOCGNOR1951-89-29 19:30:007.9 [facility] 2018-08-15 19:30:0016.1M LvhretaccWEKMNKCENJ3501-33-01 19:30:00* Test Item Value Reference Range Interpretation Comments MCH (test code = MCH) 30.6 pg 27.0-31.0 [facility] HospitalWlglhdehiPFUOAIQAET9694-86-96 19:30:006.6M OrrgbwlnkCMZWAPVLHA3655-44-63 19:30:005.02[facility] HospitalSponxpkbhFQBEVBUJCZ4185-31-29 19:30:0015.4 [facility] 2018-08-15 19:30:0094.9 NfgckzkgvNRLMRLZKVR6969-65-31 19:30:0047.7[facility] CHEST SINGLE (PORTABLE)2018-08-03 11:18:[address] [address] Patient Name: MARCELLA PORTER MR #: [id number] : 1940 Age/Sex: 78/F Req #: [id number] Adm Physician: Ordered by: KOBY MONREAL MD Report #: [id number] Location: ER Room/Bed: Procedure: [id number] DX/C HEST SINGLE (PORTABLE) Exam Date: Exam Time: REPORT STATUS: Signed A single fronta l view of the chest. HISTORY: SOB AFIB COMPARISON: None available. DISCUSSION: Portable technique, limits sensitivity of the exam. O verlying artifacts. Tubes/Lines: None Lungs and pleura: Low lung vol umes result in bibasilar vascular crowding, accentuation of the pulmonary inte rstitial markings, central pulmonary vasculature, and the cardiac silhouette. Allowing for these limitations, the findings are as follows: Prominence of the peribronchial interstitial markings, increased since the comparison. No evidence of a consolidative pneumonia or pulmonary alveolar edema. No definite pleural effusion or pneumothorax is identified. Heart and mediastinum: The cardiomediastinal silhouette and central pulmonary vasculature appears st able. Bones and soft tissues: Appear unremarkable, given this limited e xam. IMPRESSION: 1. Findings which could be seen in the setting of a nonspecific bronchitis. 2. Otherwise, stable findings compared to April 20, including central pulmonary vascular congestion. Signed b y: Dr. Khoi Kilpatrick D.O., M.M.M. on 08/03/2018 11:21 AM Dictated By: KHOI CRUZ DO 1121 Transcribed By: NAE on 08/03/18 1121 COPY TO: KOBY MONREAL MD [id number] 23:46:003.6MH [facility] QYCRP3966-60-24 10:59:0085MH [facility] XSYZY9758-56-86 10:59:002.9 [facility] YOJWJ2865-05-94 10:59:58729XR [facility] IRQGX0304-27-36 10:59:000.68MH [facility] PANEL 2018-05-03 10:59:008.7 [facility] WGXVO2265-18-75 10:59:0010.9MH [facility] RIMHI0528-63-46 10:59:0015MH [facility] AMLBF2944-24-03 10:59:96987QG [facility] JDUZA4052-25-24 10:59:52924IQ [facility] XMPHU8436-10-30 10:59:0025MH VhdpbhnyePRWNGRKVRU1857-91-64 10:59:007.6MH [facility] 2018-05-03 10:59:00* Test Item Value Reference Range Interpretation Comments MCH (test code = MCH) 29.4 pg 27.0-31.0 YajujxenvEDPJMEWFWX0315-12-46 10:59:0033.3MH ZctoreoplSDUBJIXLDE8695-15-02 10:59:0016.2M VcafkewhoCRRSVYZCCQ6762-52-03 10:59:97657WS [facility] 2018-05-03 10:59:007.2M PbwtjdpoyMRHKMGAFIW2189-76-98 10:59:003.22[facility] OWRTMXCENK3228-64-75 10:59:0088.3M QfgospeilGGMPOBAQTL8319-26-90 10:59:0028.5 RyokzrvmiYECNVWDUOD0195-29-23 10:59:009.5 [facility] OUOMK9469-73-24 15:41:0045 [facility] PAINS3311-54-98 15:41:32269HV [facility] PANEL 2018-04-30 15:41:0016 [facility] MHWPR7029-77-22 15:41:000.3M [facility] POLMZ2032-81-23 15:41:0019 [facility] IWHXL9182-21-64 15:41:0071 [facility] HGPCL7627-89-40 15:41:008.8 [facility] BKCSO3186-69-73 15:41:0024 [facility] CCTGG4340-34-34 15:41:003.5 [facility] PANEL 2018-04-30 15:41:001.17 [facility] YROXM3266-55-32 15:41:0047 [facility] OXNVS9894-05-31 15:41:007.5 [facility] JQAMK0885-76-09 15:41:23776EM [facility] EDGDO1689-21-32 15:41:003.2M [facility] QGCFL0103-80-94 15:41:63598RU [facility] VDUOC6879-89-56 15:41:00* Test Item Value Reference Range Interpretation Comments B/C Ratio (test code = B/C Ratio) 40 1 6-25 [facility] EOGZP5366-61-38 15:41:0013.5 [facility] YSQTA8568-47-10 15:41:00* Test Item Value Reference Range Interpretation Comments A/G Ratio (test code = A/G Ratio) 0.7 1 0.7-1.6 [facility] FYDGL7136-26-71 15:41:004.3M HzztowzurWSDCFDBKOZ1886-10-71 15:41:00* Test Item Value Reference Range Interpretation Comments PTT (test code = PTT) 20.5 s 22.9-35.8 PwscqansmXZRHPJSOEJ8384-99-66 15:41:00* Test Item Value Reference Range Interpretation Comments PT (test code = PT) 12.8 s 12.0-14.7 XmlvfzukgBCKIKVSMXU7752-77-05 15:41:00* Test Item Value Reference Range Interpretation Comments INR (test code = INR) 0.98 1 0.85-1.17 SroitpqwbQMSLNIIXED7865-27-23 15:41:0038.1M CfircmzkjZDDXADILTH4566-86-06 15:41:0033.2M OuiqngknuJYIMPWSXXO6267-18-11 15:41:0016.6M [facility] 2018-04-30 15:41:75762IZ FskwfbwcvHUDREPBOJS0418-20-13 15:41:008.0[facility] UXMXKTIZBN7118-71-53 15:41:0012.7 XejxcqavoYZNDVOGTAB8083-97-74 15:41:008.9 DuaubvjpiLEPAIFTBLX2590-96-57 15:41:004.29 SxmpvoubjVPNACKZWAN8452-81-89 15:41:00* Test Item Value Reference Range Interpretation Comments MCH (test code = MCH) 29.5 pg 27.0-31.0 KxfqwqjmzCXRFSZALGI4035-94-86 15:41:0088.8 IkqaswgxjFGCOZRJJXU9115-37-58 15:41:0059.9 VgalsfdqdBTAALFIKBC3513-79-64 15:41:007.9 [facility] 2018-04-30 15:41:0027.2M NmwqmidgqZSNTOKPTLR6227-93-03 15:41:001.0[facility] ZICNBBUZRJ0762-66-10 15:41:005.3M OeqyhpzvlULSYARMJCJ2227-87-04 15:41:004.0 UwykanvqoWGVFJHQRRU0371-32-55 15:41:000.1M FbaudlftjFWNPTRJBTB3619-54-98 15:41:000.4 KiresmrxzWMIBZBPLGG1690-72-52 15:41:002.4 [facility] 2018-04-30 15:41:000.7 [facility] SINGLE (PORTABLE)2018-04-18 19:50:00 [place] [address] Patient Name: MARCELLA PORTER MR #: [id number] : 1940 Age/Sex: 77/F Req #: [id number] Adm Physician: Ordered by: BHAVANA MONTILLA NP Report #: [id number] Location: ER Room/Bed: Procedure: [id number] [facility] Exam Date: 04/18/18 Exam Time : 1899 REPORT STATUS: Signed Exa mination: Single AP view of the chest. COMPARISON: Chest 2 views 04/15/2017 INDICATION: Shortness of breath, atrial fibrillation IMPRESSION: 1. Lines and Tubes: None 2. Lungs are well-inflated. No consolidation o r effusion. 3. Cardiomediastinal silhouette is normal. Mild central pulmonar y venous congestion. 4. No acute bony abnormalities. Signed by: Dr. Noni Whitfield M.D. on 04/18/2018 7:51 PM Dictated By: BRIANNA WHITFIELD MD 50 Transcribed By: NAE on 04/18/181950 COPY TO: BHAVANA MONTILLA LOAN COUNSELOR SCR MAMM BILATERAL JUAN CAD [id number] 08:06:27 - SCR MAMM BILATERAL JUAN CAD DIGITALBILATERAL DIGITAL SCREENING MAMMOGRAM 3D/2D WITH CAD: 02/05/2018CLINICAL: Asymptomatic. Digital breast tomosynthesis was performed in addition to routine CC and MLO views. Current mammographic images were evaluated by either a [employer] M-Vu or a [employer] ImageChecker CAD (computer aided detection system). Comparison is made to exams dated 01/02/2017 mammogram, 12/30/2015 mammogram, and 12/28/2014 mammogram - [facility]-. The tissue of both breasts is predominantly fatty. There are benign vascular calcifications in both breasts. No suspicious mass, architectural distortion, malignant type calcification, or lymph node abnormality detected. Breast architecture is stable compared to prior exams.IMPRESSION: BENIGNThere is no mammographic nacho dence of malignancy. Resume annual screening mammography in one year. Oumar Menchaca M.D. ss/penrad:02/06/2018 08:06:27 Promos Executive Producer: Chi BOO, [facility]-letter sent: BIRADS 1-2 Normal Mammogr am BI-RADS: 2 Benign- CT HEAD/BRAIN W/O [id number] 13:30:00 Name: MARCELLA PORTER [facility] : 1940 Age/S: 76 / F [address] [facility] Unit #: [id number] Loc: [place] [address] Phys: Maco Brooks MD Acct: [id number] Di s Date: Status: UNK PHONE #: Exam Date: 09/26/2016 1304 FAX #: Reason: trauma EXAMS: CPT CODE: [id number] CT HEAD/BRAIN W/O CONT 65542 REASON FOR EXAM: trauma EXAM ORDER DATE: 09/26/2016 1:02 PM Ordering M .D.: Derek Brooks MD PROCEDURE: - CT HEAD/BRAIN W/O CONT COMPARISON: FINDINGS: CT images of the brain were obt ained without IV contrast. Dose reduction techniques were applied. The brain parenchyma is within normal limits. The ramirez-white matter delineation is unremarkable. The ventricles, cisterns, and sulci are unr emarkable. 1 cm dystrophic calcification seen in the high right parietal lobe. There is no evidence of acute or old infarct. The calvarium is intac t. IMPRESSION: 1 cm dystrophic calcification in the high right p arietal lobe suggestive of sequela of previous infection or trauma. No acute findings at 1330 Reported and signed by: Ramin Vann M.D. CC: Latrell Knapp MD Technologist:Andrea Reed CTDI: DLP: Trnscb Da te/Time: 09/26/2016 (1330) t.SDR.VTL Orig Print D/T: S: 0 09/26/2016 (8949) PAGE 1 Signed Report - CT HEAD/BRAIN W/O [id number] 13:30:00 Name: MARCELLA PORTER [facility] : 1940 Age/S: 76 / F [address] [facility] Unit #: [id number] Loc: [place] [address] Phys: Maco Brooks MD Acct: [id number] Di s Date: Status: UNK PHONE #: [phone] Exam Date: 09/26/2016 1304 FAX #: Reason: trauma EXAMS: CPT CODE: [id number] CT HEAD/BRAIN W/O CONT 01076 REASON FOR EXAM: trauma EXAM ORDER DATE: 09/26/2016 1:02 PM Ordering Gold .Robert.: Derek Brooks MD PROCEDURE: - CT HEAD/BRAIN W/O CONT COMPARISON: FINDINGS: CT images of the brain were obt ained without IV contrast. Dose reduction techniques were applied. The brain parenchyma is within normal limits. The ramirez-white matter delineation is unremarkable. The ventricles, cisterns, and sulci are unr emarkable. 1 cm dystrophic calcification seen in the high right parietal lobe. There is no evidence of acute or old infarct. The calvarium is intac t. IMPRESSION: 1 cm dystrophic calcification in the high right p arietal lobe suggestive of sequela of previous infection or trauma. No acute findings at 1330 Reported and signed by: Ramin Vann M.D. CC: Latrell Knapp MD Technologist:Andrea Reed CTDI: DLP: Trnscb Da te/Time: 09/26/2016 (3780) t.SDR.VTL Orig Print D/T: S: 0 09/26/2016 (1335) PAGE 1 Signed Report - CT ABD PELVIS W/O [id number] 16:03:00 Name: [facility] 1940 Age/S: 73 / F [address] [facility] Unit #: [id number] Loc: [place] [address] Phys: Narinedr Ernst MD Acct: [id number] Di s Date: Status: UNK PHONE #: Exam Date: 07/05/2014 1540 FAX #: Reason: nausea, vomiting EXAMS: CPT CODE: [id number] CT ABD PELVIS W/O CONT 41080 HISTORY: Nausea and vomit ing. COMPARISON: None available. CT scan abdomen and pelvis: Stone protocol. CT scan abdomen: The lung b ases are clear. Dependent changes. Noncontrast liver is unremarkab le. No discrete mass or lesions. Gallbladder is without radiopaque stones. Unremarkable spleen. The stomach distended incompletely but it is normal in appearance. Noncontrast pancreas and adrenals are normal. Kidneys are free from hydroureteronephrosis. No calyceal stones. Chronic perinephric fat stranding. Heavy atheroscler otic calcifications of the abdominal and pelvic vasculature. No bowel obstruction or colitis or diverticulitis or enteritis. C T pelvis: Appendix is not visible. Pelvic bowel loops are unremark able with extensive sigmoid diverticulosis. No diverticulitis. Patient is post hysterectomy. The left ovary is seen and appears unrema rkable. The right ovary is not seen. Urinary bladder is decompress ed and limited. No free fluid or free air. Phleboliths within the left hemipelvis. No pathologic adenopathy. No lytic or blastic lesions noted within the bony skeleton. Scattered bone islands. Multilevel misalignment of the lumbar spine with moderate disc space narr owing throughout the lumbar spine. Osteopenia. The subcutaneous ti ssues and the musculature are within normal limits. PAGE 1 Signed Report (CONTINUED) Name: MAR[facility]LL[facility] POR[facility] 1940 Age/S: 73 / F [address] [facility] Unit #: [id number] Loc: [place] [id number] Phys: Carlo Ernst MD Acct: [id number] Dis Date: Status: UNK PHONE #: [phone] Exam Date: 1540 FAX #: [phone] Reason: nausea, vomi ting EXAMS: CPT CODE: [id number] CT ABD PELVIS W/O CONT 03581 <Continued> IMPRESSION: No hydroureteronephrosis. No calyceal stones. Appendix is not visible but no inflammation. No bowel obstruction or colitis or diverticulitis or enteritis. Severe sigmoid diverticulosis. No free fluid or free air. at 1603 Reported and signed by: Matthew Somers M.D. CC: Technologist:ESTHER ARMENTA RT(R),CT CTDI: 14.52 DLP: 696.98 Trnscb Date/Time: 07/05/2014 (1603) t.SDR.TH4 Orig Print D/T: S: 07/05/2014 (6444) PAGE 2 Signed Report - CT ABD PELVIS W/O [id number] 16:03:00 Name: MARCELLA PORTER [facility] : 1940 Age/S: 73 / F [address] [facility] Unit #: [id number] Loc: [place] [address] Phys: Narinder Ernst MD Acct: [id number] Di s Date: Status: UNK PHONE #: Exam Date: 07/05/2014 1540 FAX #: [phone] Reason: nausea, vomiting EXAMS: CPT CODE: [id number] CT ABD PELVIS W/O CONT 23569 HISTORY: Nausea and vomit ing. COMPARISON: None available. CT scan abdomen and pelvis: Stone protocol. CT scan abdomen: The lung b ases are clear. Dependent changes. Noncontrast liver is unremarkab le. No discrete mass or lesions. Gallbladder is without radiopaque stones. Unremarkable spleen. The stomach distended incompletely but it is normal in appearance. Noncontrast pancreas and adrenals are normal. Kidneys are free from hydroureteronephrosis. No calyceal stones. Chronic perinephric fat stranding. Heavy atheroscler otic calcifications of the abdominal and pelvic vasculature. No bowel obstruction or colitis or diverticulitis or enteritis. C T pelvis: Appendix is not visible. Pelvic bowel loops are unremark able with extensive sigmoid diverticulosis. No diverticulitis. Patient is post hysterectomy. The left ovary is seen and appears unrema rkable. The right ovary is not seen. Urinary bladder is decompress ed and limited. No free fluid or free air. Phleboliths within the left hemipelvis. No pathologic adenopathy. No lytic or blastic lesions noted within the bony skeleton. Scattered bone islands. Multilevel misalignment of the lumbar spine with moderate disc space narr owing throughout the lumbar spine. Osteopenia. The subcutaneous ti ssues and the musculature are within normal limits. PAGE 1 Signed Report (CONTINUED) Name: MARCELLA PORTER [facility] : 1940 Age/S: 73 / F [address] [facility] Unit #: [id number] Loc: [place] [address] Phys: Carlo Ernst MD Acct: [id number] Dis Date: Status: UNK PHONE #: [phone] Exam Date: 1540 FAX #: [phone] Reason: nausea, vomi ting EXAMS: CPT CODE: [id number] CT ABD PELVIS W/O CONT 92838 <Continued> IMPRESSION: No hydroureteronephrosis. No calyceal stones. Appendix is not visible but no inflammation. No bowel obstruction or colitis or diverticulitis or enteritis. Severe sigmoid diverticulosis. No free fluid or free air. at 1603 Reported and signed by: Matthew Somers M.D. CC: Technologist:ESTHER ARMENTA RT(Kathy),CT CTDI: 14.52 DLP: 696.98 [facility] Date/Time: 07/05/2014 (1603) tSCOTTY.TH4 Orig Print D/T: S: 07/05/2014 (0669) PAGE 2 Signed Report - XR CHEST 1 [id number] 15:55:00 Name: MARCELLA PORTER [facility] : 1940 Age/S:73 /F [facility] Unit#:[id number] Loc: [place] [address] Phys: Narinder Ernst MD Dis Date: PHONE #: [phone] Status: UNK FAX #: [phone] Exam Date: 07/05/2014 Re ason: nausea, vomiting EXAMS: CPT CODE: [id number] XR CHEST 1 V 95431 HISTORY: Nausea and vomiting. COMPARISON: None available. No acute infiltrates, effusion or congestion. Dependent changes. Elevated right hemidiaphragm. Cardiac silhouette is mildly enlarged. Tortuous aorta. Dextro scoliosis. IMPRESSION: No acute infiltrates, e ffusion or congestion. at 1555 Reported and signed by: Matthew Somers M.D. CC: Technologist: ESTHER ARMENTA RT(R),CT Trnsct Data: 07/05/2014 (6715) t.SDR.TH4 Orig Print D/T: S: 07/05/2014 (7189) PAGE 1 Signed Report - XR CHEST 1 [id number] 15:55:00 Name: MARCELLA PORTER [facility] : 1940 Age/S:73 /F [facility] Unit#:[id number] Loc: [facility] [place] [address] Phys: Narinder Ernst MD Dis Date: PHONE #: [phone] Status: UN FAX #: [phone] Exam Date: 07/05/2014 Re ason: nausea, vomiting EXAMS: CPT CODE: [id number] XR CHEST 1 V 40766 HISTORY: Nausea and vomiting. COMPARISON: None available. No acute infiltrates, effusion or congestion. Dependent changes. Elevated right hemidiaphragm. Cardiac silhouette is mildly enlarged. Tortuous aorta. Dextro scoliosis. IMPRESSION: No acute infiltrates, e ffusion or congestion. at 1555 Reported and signed by: Matthew Somers M.D. CC: Technologist: ESTHER ARMENTA, RT(R),CT Trnscrpt Data: 07/05/2014 (1555) HuTH4 Orig Print D/T: S: 07/05/2014 (3387) PAGE 1 Signed Report - XR RIBS UNI 2 V [id number] 23:32:00 Name: MARCELLA PORTER [facility] 1940 Age/S:71 /F [address] [facility] Unit#:[id number] Loc: [place] [address] Phys: Jose Martin MD Dis Date: PHONE #: [phone] Status: [facility] FAX #: [phone] Exam Date: 07/24/2011 Reason: TWISTED AND FELT POP/PAIN IN LEFT ANT LOWER RIB EXAMS: CPT CODE: [id number] XR RIBS UNI 2 [place] [address] TECHNIQUE: Left RIBS 4 views. IMPRESSION: 1. No rib fracture or destructive bone lesion. 2. Thoracolumbar scoliosis and degenerative changes. at 2332 Reported and signed by: Ming Calvo M.D. CC: Jose Martin MD Technologist: MARBELLA PRESLEY RT(R),RDMS,CT Trnscrpt Data: 07/24/2011 (2332) HuWAC1 Orig Print D/T: S: 07/24/2011 (5218) PAGE 1 Signed Report - XR RIBS UNI 2 V [id number] 23:32:00 Name: MARCELLA PORTER [facility] 1940 Age/S:71 /F [address] [facility] Unit#:[id number] Loc: [place] [address] Phys: Jose Martin MD Dis Date: PHONE #: [phone] Status: [facility] FAX #: [phone] Exam Date: 07/24/2011 Reason: TWISTED AND FELT POP/PAIN IN LEFT ANT LOWER RIB EXAMS: CPT CODE: [id number] XR RIBS UNI [address] [place] [address] TECHNIQUE: Left RIBS 4 views. IMPRESSION: 1. No rib fracture or destructive bone lesion. 2. Thoracolumbar scoliosis and degenerative changes. at 2332 Reported and signed by: Ming Calvo M.D. CC: Jose Martin MD Technologist: MARBELLA PRESLEY RT(R),RDMS,CT Trnscrpt Data: 07/24/2011 (4692) tDEREKWAC1 Orig Print D/T: S: 07/24/2011 (4985) PAGE 1 Signed Report - MRI UP JNT W/O CONT [id number] 10:12:00 FAX: Nancy Arredondo MD [phone] [place]: St: [facility] FAX: Latrell Jeffers MD [phone] Name: CHARLOTTEMARCELLA CAMERON [facility] : 1940 Age/S: 70/F [address] [facility] Unit #: [id number] Loc: [place] [address] Phys: Nancy Virgen MD Acct: [id number] Dis Date: Status: UNK PHONE #: [phone] Exam Date: 09/01/2010 0849 FAX #: [phone] Reason: ROTATOR CUFF TEAR EXAMS: CPT CODE: [id number] MRI UP JNT W/[place] [address] HISTORY: Rotator cuff tear. COMPARISON: None available. MRI LEFT SHOULDER WITHOUT CONTRAST. Moderate-sized partial thickness tear close to the greater tuberosity along the articular surface measures 6.6 mm. No tendon retraction or muscle atrophy. Infraspinatus tendon remains intact. The subscapularis tendon is intact. The bicipital tendon is intact. SLAP tear of the anterior labrum. Posterior labrum is intact. Moderate joint fluid the subcoracoid bursitis. The inferior glenohumeral ligament and the middle the numeral ligaments are intact. The superior glenohumeral ligament appears thickened as is the coracohumeral ligament and the rotator interval ligament. The spinoglenoid notched cysts. Narrowing of the shoulder joint with denuded cartilage of the glenoid. No bone bruise or acute fracture. Moderate AC joint hypertrophy. Acromion is type I in configuration and mild downsloping. IMPRESSION: Moderate-sized partial tear of the supraspinatus t endon close to the greater tuberosity close to the articular surface. SLAP tear of the anterior labrum . Subcoracoid bursitis with moderate joint fluid. Denuded cartilage of the glenoid. PAGE 1 Signed Report ( CONTINUED) FAX: Nancy Arredondo MD [phone] [place]: St: [facility] FAX: Latrell Jeffers MD [phone] Name: MARCELLA PORTER [facility] : 1940 Age/S: 70/F [address] [facility] Unit #: [id number] Loc: [place] [address] Phys: Nancy Virgen MD Acct: [id number] Dis Date: Status: K PHONE #: [phone] Exam Date: 09/01/2010 0849 FAX #: [phone] Reason: ROTATOR CU FF TEAR EXAMS: CPT CODE: [id number] MRI [place] JNT W/[place] [address] <Continued> at 1015 Reported and signed by: Matthew Somers M.D. CC: Nancy Virgen MD; Latrell Knapp MD Technologist: JACKY MANUEL Date/Time/By: 09/01/2010 (1015) : By: HuTH4 Orig Print D/T: S: 09/01/2010 (1741) PAGE 2 Signed [facility] [id number] 07:12:00 FAX: Latrell Jeffers MD [phone] [place]: St: UNK Name: [facility]LLA [facility] : [birth year] Age/S: 69/F [address] [facility] Unit #: [id number] Loc: [place] [address] Phys: Latrell Knapp MD Acct: [id number] Dis Date: Status: UNK PHONE #: [phone] Exam Date: 09/13/2009 1017 FAX #: [phone] Reason: WWE EXAMS: CPT CODE: [id number] M[place] [place] [address] COMPARISON: 03/03/08, 09/05/05. FINDINGS: The parenchymal pattern is stable, mixed fibrofatty with scattered fibroglandular elements. There is no suspicious mass, anish gnant type microcalcification, secondary sign of malignancy in either fabi[address] st, or significant interval change. IMPRESSION: No mammograph ic evidence of malignancy. RECOMMENDATION: Routine screening schedule. ACR - BI-RADS CATEGORY 2 - Benign findings [facility] Accreditation FDA Certifi ed Board Certified Radiologists (ARRT) Registered Mammography Te chnologists NOTE: 1. A negative x-ray repor t should not delay biopsy if a dominant or clinically suspicious mass is present. 4 to 8% of cancers are not identified by x-ray. 2. A negative report may reinforce clinical impression. 3. Adenosis and den se breast may obscure an underlying neoplasm. 4. False positive results average 6 to 10%. 5. Complete assessment BI-RADS wording: A. CATEGORY 0 = Needs Additional Imaging Evaluation. B. CATEGORY 1 = Negative. C. CATEGORY 2 = Benign Finding. D. CATEGORY 3 = Probably Benign Finding - Short Interval Follow-up Suggested. E . CATEGORY 4 = Suspicious Abnormality - Biopsy Should Be Considered. F. CATEGORY 5 = Highly Suggestive of Malignancy - Appropriate Action Shou ld Be Taken. G. CATEGORY 6 = Known Biopsy Proven Malignancy - Appropria te Action Should Be Taken. at 0714 Reported and signed by: Shante Calvo M.D. PAGE 1 Signed Report (CONTINUED) FAX: Latrell Jeffers MD [phone] [place]: St: [place] ------ Name: MARCELLA PORTER [facility] : 1940 Age/S: 69/F [address] [facility] Unit #: [id number] Loc: [place] [address] Phys: Latrell Lugo MD Acct: [id number] Dis Date: Status: UNK PHONE #: [phone] Exam Date: 09/13/2009 1017 FAX #: [phone] Reason: WWE EXA MS: CPT CODE: [id number] [place] [address] <Continued> CC: Latrell Knapp MD Technologist: RT PIOTR(R)(M) Trnscrd Date/Time/By: 09/14/2009 (713) : By: Dali Orig Print D/T: S: 09/14/2009 (07) PAGE 2 Signed Report - CT CHEST W W/O [id number] 17:15:00 Name: MARCELLA PORTER [facility] : 1940 Age/S: 67 / F [address] [facility] Unit #: [id number] Loc: [place] [address] Phys: Latrell Knapp MD Acct: [id number] Dis Date: Status: UNK PHONE #: [phone] Exam Date: 03/05/2008 0845 FAX #: [phone] Reason: CHEST PAIN EXAMS: CPT CODE: [id number] CT CHEST W W/O CONT 67116 FINDINGS: No pulmonary embolus or aortic dissection. Aortic ectasia, cardiomegaly, and coronary calcification. Nonspecific mildly enlarged 1.3 cm left tracheobronchial lymph node. Posterior bibasal dependent changes. No infiltrate, pneumothorax, or effusion. Degenerative changes in the spine. IMPRESSION: No pulmonary embolus or aortic dissection. ASCVD. at 1717 Reported and signed by: Ming Calvo M.D. CC: Latrell Knapp MD Technologist:AURELIA JARAMILLO [facility] CTDI: DLP: Trnscb Date/Time: 03/05/2008 (1717) [email or web address] Orig Print D/T: S: 03/05/2008 (4769) PAGE 1 Signed Report - MAMMOGM SCR [id number] 07:18:00 FAX: Latrell Jeffers MD [phone] [place]: M St: UNK Name: MARCELLA VERNON [facility] : [birth year] Age/S: 67/F [facility] Unit #: [id number] Loc: [place] [address] Phys: Latrell Knapp MD Acct: [id number] Dis Date: Status: UNK PHONE #: [phone] Exam Date: 03/03/2008 1420 FAX #: [phone] Reason: ROUTINE EXAMS: CPT CODE: [id number] [place] [address] COMPARISON: 09/05/2005, 12/28/2002 FINDINGS: There is no suspicious mass, malignant type micro calcification, or secondary sign of malignancy in either breast, or signif icant interval change. IMPRESSION: No mammographic evidence o f malignancy. ACR - BI-RADS CATEGORY 2 - Benign findings [place] [facility] Accreditation FDA Cer tified Board Certified Radiologists (ARRT) Registered Mammograph y Technologists NOTE: 1. A negative x-ray r eport should not delay biopsy if a dominant or clinically suspicious mas s is present. 4 to 8% of cancers are not identified by x-ray. 2 . A negative report may reinforce clinical impression. 3. Adenosis and dense breast may obscure an underlying neoplasm. 4. False positive res ults average 6 to 10%. 5. Complete assessment BI-RADS wording: A. CATEGORY 0 = Needs Additional Imaging Evaluation. B. GEORGINA GORY 1 = Negative. C. CATEGORY 2 = Benign Finding. D. CATEGORY 3 = Probably Benign Finding - Short Interval Follow-up Suggested. E. CATEGORY 4 = Suspicious Abnormality - Biopsy Should Be Considered. F. CATEGORY 5 = Highly Suggestive of Malignancy - Appropriate Action Should Be Taken. G. CATEGORY 6 = Known Biopsy Proven Malignancy - Appro priate Action Should Be Taken. at 0719 Reported and signed b y: Ming Calvo M.D. PAGE 1 Signed Report (CONTINUED) FAX: Latrell Jeffers MD [phone] [facility] s: [address] St: UNK Name: CHARLOTTEMARCELLA CAMERON [facility] : 1940 Age/S: 67/F [address] [facility] Unit #: [id number] Loc: [place] [address] Ph ys: Latrell Knapp MD Acct: [id number] Dis Date: Status: UNK PHONE #: [phone] Exam Date: 03/03/2008 1420 FAX #: [phone] Reason: ROUTINE EXAMS: CPT CODE: [id number] [place] [address] <Continued> CC: Latrell Knapp MD Technologist: ANGELA SALDAÑA)(Gold) Trnscrd Date/Time/By: 03/05/2008 (718) : By: [email or web address] Orig Print D/T: S: 03/05/2008 (720) PAGE 2 Signed Report - DEXA BONE DENSITY AXIAL 2005-09-07 10:53:00 FAX: Álvaro Pichardo MD [phone] [place]: St: UNK Name: Javi CAGEMARCELLA [facility] : [birth year] Age/S: 65/F [address] [facility] Unit #: [id number] Loc: [facility] [place] [address] Phys: Álvaro Pichardo MD Acct: [id number] Dis Date: Status: UNK PHONE #: [phone] Exam Date: 09/05/2005 1551 FAX #: [phone] Reason: EXAMS: CPT CODE: [id number] DEXA BONE DENSITY AXIA L 82140 DICTATED: 09/07/05, 1053 HISTORY: OSTEOPOROSIS SCREENING DEXA BONE MINERAL DENSITY STUD Y, 09/05/05: CPT 02736 A bone density study of the lumbar spine an d hips was performed using dual energy x-ray absorptiometry on a [address] unit. Results: BMD (g/cm2) T-Score Z-Score Lumbar Spine 1.247 -0 .6 1.8 (L2-L4) LEFT FEMORAL NE CK 0.975 -0.2 0.6 RIGHT FEMORAL NE CK 0.987 -0.1 0.7 IMPRESSION: THIS PLACES THE PATIENT IN THE NORMAL RANGE FOR HIPS AND LUMBAR SPI NE AND CONTINUED CLOSE INTERVAL FOLLOWUP IS RECOMMENDED. /[facility]/58611 Electronically Signed by Oseas Somers on 006 at 1407 Reported and signed by: Matthew Somers M.D. CC: Álvaro Pichardo MD Techn ologist: RT PIOTR(Kathy)(Gold) Trnscrd Date/Moi e/By: 09/07/2005 (6917) : By: Kayode/ANANDCEW/Orig Print D/T: S: 09/07/2005 (2588) PAGE 1 Signed Report - MAMMOGM SCR [id number] 10:43:00 FAX: Álvaro Pichardo MD [phone] [place]: St: [facility] Name: [facility] : [birth year] Age/S: 65/F [address] [facility] Unit #: [id number] Loc: [place] [address] Phys: Álvaro Pichardo MD Acct: [id number] Dis Date: Status: K PHONE #: [phone] Exam Date: 09/05/2005 1600 FAX #: [phone] Reason: ILATERAL EXAMS: CPT CODE: [id number] [place] [id number] DICTATED: 09/06/05, 1043 BILATERAL FILM SCREEN MAMMOGRAPHY, 09/05/05 Compared to the examination of 12/26/02, 12/12/01, 12/05/00 Bilateral film screen mammography demonstrating mixed fatty fibroglandular tissue. No spiculated mass, clustered group of microcalcifications or asymmetric density is noted. No skin thickening or nipple retraction is noted. IMPRESSION: 1. NO SPICULATED MASS, CLUSTERED G ROUP OF MICROCALCIFICATIONS OR ASYMMETRIC DENSITY IS SEEN. 2. ROUTINE ONE YEAR FOLLOW-UP IS RECOMMENDED. NOTE : 1. A negative x-ray report should not delay biopsy if a do minant or clinically suspicious palpable mass is present. 2. Dense breasts may obscure an underlying neoplasm. 3. False/positiv e reports may exceed 10% Result Code: Bi-Rads 3 Follo w-up: /91196 at 1132 Reported and aisha d by: Matthew Somers M.D. CC: Álvaro Pichardo MD Technologist: RT PIOTR(Kathy)(M) [facility] Date/Time/By: 09/06/2005 (1053) : By: Ayesha.PW Orig Print D /T: (3075) S: 09/07/2005 (8862) PAGE 1 S igned Report - XR ANKLES 3 + [id number] 08:18:00 [place]: St: UNK Name: MARCELLA VERNON [facility] : [birth year] Age/S: 64/F [address] [facility] Unit #: [id number] Loc: [place] [address] Phys: Vu,Loc Yaron Acct: [id number] Dis Date: Status: UNK PHONE #: [phone] Exam Date: 07/22/2004 2345 FAX #: [phone] Reason: - RIGHT EXAMS: CPT CODE: [id number] XR ANKLES 3 + V 70853 [id number] XR FOOT 3 + V 56192 DICTATED: 07/24/04, 0818 CLINICAL HI STORY: INJURY. THREE VIEWS OF THE RIGHT ANKLE, 07/22/04: Three views of the right ankle demonstrating a probable vague chip f racture of the base of the lateral malleolus is barely visible with marked soft tissue swelling and large joint effusion noted. Plantar calcaneal sp ur is noted. Ankle mortise is preserved. IMPRESSION: 1. VAGUE SMALL SUBCENTIMETER CHIP FRACTURE OF THE BASE OF THE LATERAL MALLEOLUS. 2. SOFT TISSUE SWELLING AND JOINT EFFUSION. 3. ANKLE MORTISE IS PRESERVED. THREE VIEWS OF THE RIGHT FOOT, 07/22/04: Three views of th e right foot demonstrating a fracture of the base of the fifth metatarsal. Soft tissue swelling is preserved. IMPRESSION: FRACTURE OF THE BASE OF THE FIFTH METATARSAL. #[id number] at 3399 Reported and signed by: Matthew Somers M.D. CC: Technologist: TARYN GONZALEZ [facility] Date/Time/By: 07/24/2004 (930) : By: Ayesha. OBINNA Orig Print D/T: S: 07/24/2004 (6382) PAGE 1 Signed Report - XR FOOT 3 + [id number] 08:18:00 [place]: St: [facility] Name: Javi CERVANTESKATHERINMARCELLA [facility] : [birth year] Age/S: 64/F [address] [facility] Unit #: [id number] Loc: [place] [address] Phys: Vu,Loc Yaron Acct: [id number] Dis Date: Status: UNK PHONE #: [phone] Exam Date: 07/22/2004 2345 FAX #: [phone] Reason: - RIGHT EXAMS: CPT CODE: [id number] XR ANKLES 3 + V 91209 [id number] XR FOOT 3 + V 93252 DICTATED: 07/24/04, 0818 CLINICAL HI STORY: INJURY. THREE VIEWS OF THE RIGHT ANKLE, 07/22/04: Three views of the right ankle demonstrating a probable vague chip f racture of the base of the lateral malleolus is barely visible with marked soft tissue swelling and large joint effusion noted. Plantar calcaneal sp ur is noted. Ankle mortise is preserved. IMPRESSION: 1. VAGUE SMALL SUBCENTIMETER CHIP FRACTURE OF THE BASE OF THE LATERAL MALLEOLUS. 2. SOFT TISSUE SWELLING AND JOINT EFFUSION. 3. ANKLE MORTISE IS PRESERVED. THREE VIEWS OF THE RIGHT FOOT, 07/22/04: Three views of th e right foot demonstrating a fracture of the base of the fifth metatarsal. Soft tissue swelling is preserved. IMPRESSION: FRACTURE OF THE BASE OF THE FIFTH METATARSAL. #[id number] at 6968 Reported and signed by: Matthew Somers M.D. CC: Technologist: TARYN GONZALEZ [facility] Date/Time/By: 07/24/2004 (0931) : By: Ayde YEBOAH Orig Print D/T: S: 07/24/2004 (0730) PAGE 1 Signed Report - [id number] 19:08:00 FAX: Latrell Jeffers MD [phone] [place]: St: UNK Name: [facility] : [birth year] Age/S: 62/F [address] [facility] Unit #: [id number] Loc: [place] [address] Phys: Latrell Knapp MD Acct: [id number] Dis Date: Status: UNK PHONE #: [phone] Exam Date: 12/28/2002 0920 FAX #: [phone] Reason: ILATERAL EXAMS: CPT CODE: [id number] MAMMO[place] [place] [id number] DICTATED: 12/29/02, 1908 H ISTORY: SCREENING. BILATERAL SCREENING MAMMOGRAM, 12/28/02 : CPT 06250 Comparison is made to exams dated 12/12/01, 12/05/00, an d 11/07/99. A right mole skin marker is present. The parenchymal pattern i s hypoglandular. There is no specific mammographic evidence of ma lignancy or other significant interval change in either breast. IMPRESSION: NO EVIDENCE OF MALIGNANCY. NOTE: 1. A negative x-ray report should not delay biopsy if a dominant or clinically suspicious palpable mass is present. 2. Dense breasts may obscure an underlying neoplasm. Result Code: B i-Rads 2 Follow-up: 12 months /christy/3452 Diana ctronically Signed by Oseas Calvo on 12/30/2002 at 3282 Reported and signed by: Ming Calvo M.D. CC: Latrell Knapp MD Technologist: RT PIOTR(Kathy)(M) Trnscrd Date/Time/By: 12/30/2002 (0706) : By: Ayesha SHIN Orig Print D/T: S: 12/30/2002 (5784) PAGE 1 Signed Report - MAMMOGM SCR [id number] 15:44:00 FAX: Latrell Jeffers MD [phone] [place]: St: [facility] Name: [facility] : [birth year] Age/S: 61/F [address] [facility] Unit #: [id number] Loc: [place] [address] Phys: Latrell Knapp MD Acct: [id number] Dis Date: Status: UNK PHONE #: [phone] Exam Date: 12/12/2001 1105 FAX #: [phone] Reason: ILATERAL EXAMS: CPT CODE: [id number] [id number] DICTATED: 12/12/01, 1544 H ISTORY: ANNUAL MAMMOGRAM BILATERAL FILM SCREEN MAMMOGRAM, 2: (COMPARISON IS MADE TO EXAMS DONE ON 12/05/00, 11/07/99) 1. Moderate diffuse fibroglandular changes and adenosis bilaterall y without discrete, dominant mass in either breast. 2. No mammographic evidence of malignancy. No significant change during the time interval. 3. No abnormal clustered pleomorphic microcalcific ations seen in either breast. CONCLUSION: NO MAMMOGRAPHIC EVIDENCE OF MALIGNANCY. NO SIGNIFICANT CHANGE DURING THE TIME INTERVAL. PROGRESS YEARLY MAMMOGRAM RECOMMENDED. NOTE: 1. A negative x-ray report should not delay biopsy if a dominant or clinically suspicious palpable mass is present. 2. Dens e breasts may obscure an underlying neoplasm. 3. False/positive reports m ay exceed 10%. Result Code: Bi-Rads 3 Follow-up: [address] [place] [address] 469/RAL/pe at 0734 Reported and signed by: Nestor summers M.D. CC: Latrell Knapp MD chnologist: Alvin DOMINGUEZ(R),(M) Trnscrd Date/ Time/By: 12/16/2001 (1317) : By: NADIR/Francisco Javier PAGE 1 Signed Report - XR FOOT 3 + [id number] 13:50:00 FAX: Jaya Bunn MD [phone] [place]: St: [facility] Name: MARCELLA VERNON [facility] : [birth year] Age/S: 61/F [address] [facility] Unit #: [id number] Loc: [place] [address] Phys: Jaya Yi MD Acct: [id number] Dis Date: Status: UNK PHONE #: [phone] Exam Date: 08/09/2001 1350 FAX #: [phone] Reason: L EXAMS: CPT CODE: [id number] XR ANKLES 3 + V 44167 [id number] XR FOOT 3 + V 64252 DICTATED: 08/09/01, 1058 HISTORY: PA IN. THREE VIEWS OF THE LEFT ANKLE, 08/09/01: CPT CODE 736 10 Three views of the left ankle demonstrate marked soft tissue sw elling over the lateral malleolus region. A nondisplaced fracture of the base of the fifth metatarsal is noted. The ankle mortise is preserv ed. IMPRESSION: 1. NONDISPLACED FRACTURE OF THE FIFTH METATARSAL BASE. 2. THE ANKLE MORTISE IS PRES ERVED. THREE VIEWS OF THE LEFT FOOT, 08/09/01: CPT CODE 7 3630 Three views of the left foot demonstrating a nondisplaced fra cture of the base of the fifth metatarsal. IMPRESSION: NONDISPLACED FRACTURE OF THE BASE OF THE FIFTH METATARSAL. Electronically Signed by Oseas Somers on at 1151 Reported and signed by: Vanessa Flannery CC: Jaya Yi MD Techno logist: ZEHRA CISNEROS(R) CT Trnscrd Date/Time /By: 08/10/2001 (0137) : By: Ayesha.GXE/rodriSDR.TH4 PAGE 1 Signed Report - XR ANKLES 3 + [id number] 13:50:00 FAX: Jaya Bunn MD [phone] [place]: B St: UNK Name: MARCELLA VRENON [facility] : [birth year] Age/S: 61/F [address] [facility] Unit #: [id number] Loc: [place] [address] Phys: Jaya Yi MD Acct: [id number] Dis Date: Status: UNK PHONE #: [phone] Exam Date: 08/09/2001 1350 FAX #: [phone] Reason: L EXAMS: CPT CODE: [id number] XR ANKLES 3 + V 92069 [id number] XR FOOT 3 + V 13116 DICTATED: 08/09/01, 1058 HISTORY: PA IN. THREE VIEWS OF THE LEFT ANKLE, 08/09/01: CPT CODE 736 10 Three views of the left ankle demonstrate marked soft tissue sw elling over the lateral malleolus region. A nondisplaced fracture of the base of the fifth metatarsal is noted. The ankle mortise is preserv ed. IMPRESSION: 1. NONDISPLACED FRACTURE OF THE FIFTH METATARSAL BASE. 2. THE ANKLE MORTISE IS PRES ERVED. THREE VIEWS OF THE LEFT FOOT, 08/09/01: CPT CODE 7 3630 Three views of the left foot demonstrating a nondisplaced fra cture of the base of the fifth metatarsal. IMPRESSION: NONDISPLACED FRACTURE OF THE BASE OF THE FIFTH METATARSAL. Electronically Signed by Oseas Somers on at 1151 Reported and signed by: Vanessa Flannery CC: aJya Yi MD Techno logist: ZEHRA CISNEROS(R) CT Trnscrd Date/Time /By: 08/10/2001 (0137) : By: Ayesha.GXE/t.SDR.TH4 PAGE 1 Signed Report - KNEE COMPLETE 3 OR 4 VIEWS 1998-07-25 18:05:00 FAX: Soren Hawkins [phone] [place]: St: REG Name: MARCELLA VERNON [facility] : [birth year] Age/S: 58/F [facility] Unit #: [id number] Loc: [place] [address] Phys: Soren Hawkins Acct: [id number] Dis Date: Status: REG CLI PHONE #: [phone] Exam Date: 07/25/1998 1805 FAX #: [phone] Reason: R - RIGHT EXAMS: CPT CODE: [id number] KNEE COMPLETE 3 OR 4 V IEWS DICTATED: 07/26/98, 1003 HI STORY: RIGHT KNEE PAIN. RIGHT KNEE, 07/25/98: View s of the right knee demonstrate no acute fracture or dislocation. The kne e joint is mildly narrowed, especially the medial compartment. Small supr apatellar effusion is noted. The bony mineral density is preserved. IMPRESSION: 1. NO ACUTE FRACTURE OR DISLOCATION. 2. MILD NARROWING OF THE KNEE JOINT. 3. SMALL SUPRAPATELLAR EFFUS ION. at 124 8 Reported and signed by: Matthew Somers M.D. CC: Soren Hawkins M.D. Techno logist: RT ROSEMARY(Kathy)(M) Trnscrd Date/Time /By: 07/26/1998 (1041) : By: [facility] PAGE [address] ABDOMEN/PELVIS W [place] [address] Patient Name: MARCELLA PORTER MR #: [id number] : 1940 Age/Sex: 76/F Req #: [id number] Adm Physician: Ordered by: LATRELL KNAPP MD Report #: [id number] Location: [facility] Room/Bed: Procedure: [id number] CT/CT ABDOMEN/PELVIS W Exam Da te: 04/30/17 Exam Time: 1134 REPORT STATUS: Sig barbara PROCEDURE: CT ABDOMEN AND PELVIS WITH CONTRAST TECHNIQUE: The ab domen and pelvis were scanned utilizing a multidetector helical scanner from the diaphragm to the lesser trochanter after the IV administration of 100 cc of Isovue 370 and the oral administration of Gastroview and water. Coronal an d sagittal multiplanar reformations were obtained. COMPARISON: CT abdom en and pelvis 04/09/2016. INDICATIONS: LEFT LOWER QUADRANT PAIN FINDINGS : LOWER THORAX: Normal. HEPATOBILIARY: No focal hepatic lesions. No sara iary ductal dilatation. Cholecystectomy. SPLEEN: No splenomegaly. PANCREA S: No focal masses or ductal dilatation. ADRENALS: No adrenal nodules. K IDNEYS/URETERS: No hydronephrosis, stones, or solid mass lesions. PELVIC ORGAN S/BLADDER: Hysterectomy. No right ovary is visualized. Normal left ovary. PERITONEUM / RETROPERITONEUM: No free air or fluid. LYMPH NODES: No lymphad enopathy. VESSELS: Atherosclerotic calcifications. GI TRACT: No distenti on or wall thickening. Appendectomy. Multiple diverticula are present in the descending and sigmoid colon, without adjacent soft tissue inflammatory ceja es. BONES AND SOFT TISSUES: Unremarkable. IMPRESSION: 1. No acute abn ormality of the abdomen and pelvis. 2. Diverticulosis without evidence of div erticulitis. Dictated by: Taryn Dos Santos M.D. on 04/30/2017 at 13:39 Electronically approved by: Taryn Dos Santos M.D. on 04/30/2017 at 13:39 Dictated By: TARYN DOS SANTOS MD 1337 COPY TO: MAYELIN KNAPP MD CHEST 2 VIEWS [place] [address] Patient Name: MARCELLA PORTER MR #: [id number] : 1940 Age/Sex: 76/F Req #: [id number] Adm Physician: Ordered by: JOSE ROUSSEAU MD Report #: [id number] Location: OR Room/Bed: Procedure: [id number] DX/CHEST 2 VIEWS Exam Date: 04/15/17 Exam Time: 1203 REPORT STATUS: Signed PROCEDURE: Frontal and lateral views of the chest. COMPARISON: 6 INDICATIONS: PREOPERATIVE CHEST XRAY FOR COLONOSCOPY FINDING S: Lines/tubes: None. Lungs: The lungs are well inflated and clear. Th ere is no evidence of pneumonia or pulmonary edema. Minimal bibasilar subsegm ental atelectasis. Pleura: There is no pleural effusion or pneumothora x. Heart and mediastinum: The heart and the mediastinum are normal. Bones: Limited evaluation due to generalized demineralization. No acute red ny abnormality. Degenerative changes of the visualized spine. Evidence of low er thoracic vertebroplasty. Right diaphragmatic eventration. IMPRESSION: 1. No acute cardiopulmonary disease. 2. No significant interval molina ge from prior exam. Dictated by: April Arredondo M.D. on 04/15/2017 at 12: 30 Electronically approved by: April Arredondo M.D. on 04/15/2017 at 12:30 Dictated By: APRIL ARREDONDO MD 1230 Transcribed By: ASHLEY on 04/15/17 1230 COPY TO: JOSE ROUSSEAU MD - MRI OR/FCE/HELADIO LOVETT FAX: Mannie Tse MD [phone] [place]: St: UNK Name: MARCELLA VERNON [facility] : [birth year] Age/S: 64/F [address] [facility] Unit #: [id number] Loc: [place] [address] Phys: Mannie Calero MD Acct: [id number] Dis Date: Status: UNK PHONE #: [phone] Exam Date: 01/10/2005 8804 FAX #: [phone] Reason: Y AND COMPLETE MRI QUESTIONNAIRE Report Has Been Amended EXAMS: CPT CODE: [id number] MRI BRAIN W WO CONT 7055 3 [id number] MRI OR/FCE/[place] [address] Addendum - 01/11/2005 SIGNED 01/12/2005 Exam [id number] MRI/MRIOFNKWWO was added to this report by Rose Dc on 01/11/2005 (2936) The original report was aisha d prior to the changes involving the above exam(s). I, the undersigned oscar diggs, have reviewed this report for accuracy and verify that this is cor rect. at 101 6 Reported and signed by: Nestor Joseph M.D. Created Date/Time/User: 01/11/2005 (3058) YESSI Report DICTATED: 01/11/05, 0519 CLINICAL HISTORY: MRI OF THE BRAIN, WITH AND WITHOUT IV GADOLINIUM ENHANCEMENT 01/10/05: 1. Evidence of cavernous angioma in the right posterior parietal lobe subcortical in location, measuring 1.2 cm. On all pulse sequences , this lesion is diffusely hypointense with a mixture of isointense tissues and there is minimal surrounding edema or gliosis, however , there is no mass effect particularly upon the lateral ventricles. Also on the postgadolinium sequence, this lesion did not demonstr ate enhancement thus ruling out neoplasm. On the gradient echo seq uence, this lesion developed marked hyperintensity further attestin g to the hemosiderin content. 2. No evidence of acute major t erritorial infarction involving the cerebral hemispheres bilaterall y, basal ganglia bilaterally, brainstem and cerebellum. 3. No evidence of subarachnoid hemorrhage or intraventricular hemorrhage. No evidence of parenchymal hematoma and there is no evidence of subdural or epidural hematoma. 4. On the FLAIR sequence and T2-weighted sequence, there are multiple small hyperi ntense deep white matter lesions in the PAGE 1 Signed Report (CONTINUED) FAX: Mannie Tse MD [place]: St: UNK Name: CHARLOTTEMARCELLA CAMERON [facility] : 1940 Age/S: 64/F [address] [facility] y Unit #: [id number] Loc: [place] [address] Phys: Mannie Calero MD Acct: [id number] Dis Date: Status: UNK PHONE #: [phone] Exam Date: 01/10/2005 1735 FAX #: [phone] Reason: Y AND COMPLETE MRI QUESTIONNAIRE Report Has Been Amended EXAMS: CPT CODE: [id number] MRI BRAI N W WO CONT 77091 [id number] MRI OR/FCE/N[place] O [address] <Continued> periventricular regions on both sides, which did not demonstrate hyperintensity on the diffusion-weighted sequence, corroborating the chronicity of these old microvascular lesions. 5. Ventricles are minimally dilated but there is no midline shift, subfalcine herniation. 6. Diffuse prominence of the cerebral sulci indicating cortical atrophy. 7. Ramirez ma ter/white matter differentiation is preserved and there is no evide nce of cerebral edema. No evidence of brain herniation, no evidenc e of transtentorial herniation or uncal herniation. 8. The in ternal auditory canals bilaterally including the 8th nerve and 7th nerve are intact without evidence of enhancing mass or inflammatory process. The vestibule and semicircular canals bilaterally are int act. 9. The mastoid air cells bilaterally reveal partial hype rintensity indicating bilateral mastoiditis, without bone destructi on. 10. The jugular veins bilaterally are intact without evide nce of enlargement or mass to indicate glomus jugulare tumor. The paranasal sinuses are normal. 11. On the postcontr ast images of the brain, there is no evidence of enhancing tumor or metastasis. The cerebral dural venous sinus are patent without lisandro ts and there is no venous infarction. The cavernous sinus reveals no evidence of enhancing tumor or inflammatory process. No evidenc e of meningeal enhancement. CONCLUSION: EVIDENCE OF A 1.2 CM CAVERNOUS ANGIOMA IN THE RIGHT POSTERIOR PARIETAL LOBE, SUBCORTICAL IN L OCATION, WITH MINIMAL SURROUNDING EDEMA/GLIOSIS. THERE IS NO MASS EFFEC T PARTICULARLY UPON THE LATERAL VENTRICLES WHICH REVEALED NO MIDLINE VONDA FT AND THERE IS NO SUBFALCINE HERNIATION OR BRAIN HERNIATION. NO EVIDEN CE OF ENHANCING TUMOR OR METASTASIS PARTICULARLY ON THE POSTGADOLINIUM S EQUENCE. NO EVIDENCE OF AV MALFORMATION OR VENOUS ANGIOMA. THE INTERNAL AUDITORY CANALS BILATERALLY INCLUDING THE 7TH NERVE AND P AGE 2 Signed Report (CONTINUED) FAX: Mannie Tse MD [phone] [place]: St: NICOLLE Name: MARCELLA AWAN [facility] : 1940 e/S: 64/ [address] [facility] Unit #: [id number] Loc: [place] [address] Phys: Mannie Calero MD Acct: [id number] Dis Date: Status: UNK PHONE #: [phone] Ex am Date: 01/10/2005 5424 FAX #: [phone] Reaso n: Y AND COMPLETE MRI QUESTIONNAIRE Rep ort Has Been Amended EXAMS: CPT CODE: [id number] MRI BRAIN W WO CONT 02586 [id number] MRI OR/FCE/[place] [address] <Continued> 8TH NERVE BILATERALLY ARE INTACT WITHOUT ENHANCING TUMOR OR INFLAMMATORY PROCESS. THE VESTIBULE AND SEMICIRCULAR CANALS ALSO APPEAR INTACT. 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 RAL/saf/#625 at 1009 Reported and signed by: Nestor Joseph M.D. CC: Mannie Calero MD Technologist: Abe Newman Date/Time/By: 01/11/2005 (0621) : By: Genevieve/YESSI/Yuan Russell D/T: S: 01/11/2005 (9955) PAGE 3 Signed Report - MRI BRAIN W WO CONT FAX: Y Mannie Calero MD [phone] [place]: St: UNK Name: Javi CERVANTESKATHERINMARCELLA CAMERON [facility] : [birth year] Age/S: 64/F [address] [facility] Unit #: [id number] Loc: [place] [address] Phys: Mannie Calero MD Acct: [id number] Dis Date: Status: UNK PHONE #: [phone] Exam Date: 01/10/2005 1882 FAX #: [phone] Reason: Y AND COMPLETE MRI QUESTIONNAIRE Report Has Been Amended EXAMS: CPT CODE: [id number] MRI BRAIN W WO CONT 7055 3 [id number] MRI OR/FCE/[place] [address] Addendum - 01/11/2005 SIGNED 01/12/2005 Exam [id number] MRI/MRIOFNKWWO was added to this report by Rose Dc on 01/11/2005 (6760) The original report was aisha d prior to the changes involving the above exam(s). I, the undersigned oscar diggs, have reviewed this report for accuracy and verify that this is cor rect. at 101 6 Reported and signed by: Nestor Joseph M.D. Created Date/Time/User: 01/11/2005 (3837) CHRISW Report DICTATED: 01/11/05, 0593 CLINICAL HISTORY: MRI OF THE BRAIN, WITH AND WITHOUT IV GADOLINIUM ENHANCEMENT 01/10/05: 1. Evidence of cavernous angioma in the right posterior parietal lobe subcortical in location, measuring 1.2 cm. On all pulse sequences , this lesion is diffusely hypointense with a mixture of isointense tissues and there is minimal surrounding edema or gliosis, however , there is no mass effect particularly upon the lateral ventricles. Also on the postgadolinium sequence, this lesion did not demonstr ate enhancement thus ruling out neoplasm. On the gradient echo seq uence, this lesion developed marked hyperintensity further attestin g to the hemosiderin content. 2. No evidence of acute major t erritorial infarction involving the cerebral hemispheres bilaterall y, basal ganglia bilaterally, brainstem and cerebellum. 3. No evidence of subarachnoid hemorrhage or intraventricular hemorrhage. No evidence of parenchymal hematoma and there is no evidence of subdural or epidural hematoma. 4. On the FLAIR sequence and T2-weighted sequence, there are multiple small hyperi ntense deep white matter lesions in the PAGE 1 Signed Report (CONTINUED) FAX: Mannie Tse MD [phone] [place]: B St: UNK Name: MARCELLA PORTER [facility] : 1940 Age/S: 64/F [address] Unit #: [id number] Loc: [place] [address] Phys: Mannie Calero MD Acct: [id number] Dis Date: Status: UNK PHONE #: [phone] Exam Date: 01/10/2005 1735 FAX #: [phone] Reason: Y AND COMPLETE MRI QUESTIONNAIRE Report Has Been Amended EXAMS: CPT CODE: [id number] MRI BRAI N W WO CONT 29874 [id number] MRI OR/FCE/NCK [place] O 01279 <Continued> periventricular regions on both sides, which did not demonstrate hyperintensity on the diffusion-weighted sequence, corroborating the chronicity of these old microvascular lesions. 5. Ventricles are minimally dilated but there is no midline shift, subfalcine herniation. 6. Diffuse prominence of the cerebral sulci indicating cortical atrophy. 7. Ramirez ma ter/white matter differentiation is preserved and there is no evide nce of cerebral edema. No evidence of brain herniation, no evidenc e of transtentorial herniation or uncal herniation. 8. The in ternal auditory canals bilaterally including the 8th nerve and 7th nerve are intact without evidence of enhancing mass or inflammatory process. The vestibule and semicircular canals bilaterally are int act. 9. The mastoid air cells bilaterally reveal partial hype rintensity indicating bilateral mastoiditis, without bone destructi on. 10. The jugular veins bilaterally are intact without evide nce of enlargement or mass to indicate glomus jugulare tumor. The paranasal sinuses are normal. 11. On the postcontr ast images of the brain, there is no evidence of enhancing tumor or metastasis. The cerebral dural venous sinus are patent without lisandro ts and there is no venous infarction. The cavernous sinus reveals no evidence of enhancing tumor or inflammatory process. No evidenc e of meningeal enhancement. CONCLUSION: EVIDENCE OF A 1.2 CM CAVERNOUS ANGIOMA IN THE RIGHT POSTERIOR PARIETAL LOBE, SUBCORTICAL IN L OCATION, WITH MINIMAL SURROUNDING EDEMA/GLIOSIS. THERE IS NO MASS EFFEC T PARTICULARLY UPON THE LATERAL VENTRICLES WHICH REVEALED NO MIDLINE VONDA FT AND THERE IS NO SUBFALCINE HERNIATION OR BRAIN HERNIATION. NO EVIDEN CE OF ENHANCING TUMOR OR METASTASIS PARTICULARLY ON THE POSTGADOLINIUM S EQUENCE. NO EVIDENCE OF AV MALFORMATION OR VENOUS ANGIOMA. THE INTERNAL AUDITORY CANALS BILATERALLY INCLUDING THE 7TH NERVE AND P AGE 2 Signed Report (CONTINUED) FAX: Y Mannie Calero MD [phone] [place]: St: K Name: MARCELLA AWAN [place] : 1940 Ag e/S: /[address] [facility] Unit #: [id number] Loc: [place] [address] Phys: Mannie Calero MD Acct: [id number] Dis Date: Status: K PHONE #: [phone] Ex am Date: 01/10/2005 1732 FAX #: [phone] Reaso n: Y AND COMPLETE MRI QUESTIONNAIRE Rep ort Has Been Amended EXAMS: CPT CODE: [id number] MRI BRAIN W WO CONT [id number] MRI OR/FCE/[place] [address] <Continued> 8TH NERVE BILATERALLY ARE INTACT WITHOUT ENHANCING TUMOR OR INFLAMMATORY PROCESS. THE VESTIBULE AND SEMICIRCULAR CANALS ALSO APPEAR INTACT. 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 RAL/saf/#[phone] at [phone] Reported and signed by: Nestor Joseph M.D. CC: Mannie Calero MD Technologist: Abe Newman Date/Time/By: 01/11/2005 (0621) : By: Genevieve/YESSI/Yuan Russell D/T: S: 01/11/2005 (4012) PAGE 3 Signed Report
--- NOTE | 2019-08-24 17:33 | Emergency Department Note ---
History of Present Illnes History of Present Illness Chief Complaint: General Medicine Complaints History of Present Illness This is a 79 year old female . Historian: Patient Arrival Mode: Car Onset (how long ago): day(s) (today) Radiation: non-radiation, back, neck, extremity, abdomen, periumbilical, flank, proximal, distal, other Severity: mild Onset quality: sudden Duration (how long): day(s) (today) Timing of current episode: constant Progression: unchanged Context: recent illness, recent surgery, recent immobilization, recent travel, trauma/injury, new medications, hx of DVT/PE, non-compliance w/ medications, other Relieving factors: none Exacerbating factors: none Treatments prior to arrival: none (ANNIE SILVA NP) Past Medical/Family History Physician Review I have reviewed the patient's past medical and family history. Any updates have been documented here. (ANNIE SILVA NP) Past Medical History Recent Fever: No Clinical Suspicion of Infectio: No New/Unexplained Change in Ment: No Past Medical History: Hypertension, Diabetes, CHF, A-Fib, Hypothyroidism, UTI's, Hyperlipedemia, Osteoarthritis Past Surgical History: Cholecysctectomy, Appendectomy, Pacer/AICD Other Surgery: Appy,Neck surg,Bladder susp,sinus surg (ANNIE SILVA NP) Social History Smoking Cessation: Never Smoker Alcohol Use: None Any Illegal Drug Use: No TB Exposure/Symptoms: No (ANNIE SILVA NP) Family History Family history of heart diseas: No (ANNIE SILVA NP) Other Last Tetanus: UTD Any Pre-Existing Lines (PICC,: No (ANNIE SILVA NP) Review of Systems Review of Systems Constitutional: no symptoms EENTM: no symptoms Cardiovascular: no symptoms Respiratory: no symptoms Gastrointestinal: abdominal pain (lower abd pain ) Genitourinary: hematuria Musculoskeletal: other (noted r lower leg foot redness swelling tenderness ) Neurological: no symptoms Psychological: no symptoms Endocrine: no symptoms Hematological/Lymphatic: no symptoms Review of other systems All other systems reviewed and negative. (ANNIE SILVA NP) Physical Exam Related Data Allergies: Coded Allergies: cetirizine (Verified Allergy, Mild, 04/18/18) codeine (Verified Allergy, Mild, 04/18/18) Penicillins (Verified Allergy, Unknown, 09/06/19) alprazolam (Verified Allergy, Unknown, 08/07/18) Uncoded Allergies: PLASTIC TAPE (Allergy, Unknown, RASH, 04/18/18) TAPE (Allergy, Unknown, 08/25/18) Triage Vital Signs Vital Signs Date Time Temp Pulse Resp B/P (MAP) Pulse Ox O2 Delivery O2 Flow Rate FiO2 08/24/19 16:53 98.5 88 16 153/103 95 Vital signs reviewed: Yes (ANNIE SILVA OUTBOARD MOTOR TESTER) Physical Exam CONSTITUTIONAL Constitutional: well-developed, well-nourished HENT HENT: normocephalic, atraumatic, oropharynx clear/moist, nose normal HENT L/R: left ext ear normal, right ext ear normal EYES Eyes: PERRL, conjunctivae normal NECK Neck: ROM normal PULMONARY Pulmonary: effort normal, breath sounds normal CARDIOVASCULAR Cardiovascular: regular rhythm, heart sounds normal, capillary refill normal, normal rate GASTROINTESTINAL Abdominal: soft, bowel sounds normal, tender (lower abd pain ttp minimal on exam ) GENITOURINARY Genitourinary: other (c/o hematuria ) SKIN Skin: warm, dry MUSCULOSKELETAL Musculoskeletal: tenderness, swelling, other (redness lower leg foot exam c/w cellulitis ) NEUROLOGICAL Neurological: alert, oriented x 3, no gross motor or sensory deficits PSYCHOLOGICAL Psychological: mood/affect normal, judgement normal (ANNIE SILVA OUTBOARD MOTOR TESTER) Results Laboratory Laboratory Laboratory Tests Test 08/24/19 17:30 08/24/19 17:25 White Blood Count 12.10 x10e3/uL (4.8-10.8) Red Blood Count 3.78 x10e6/uL (3.6-5.1) Hemoglobin 12.1 g/dL (12.0-16.0) Hematocrit 37.3 % (34.2-44.1) Mean Corpuscular Volume 98.7 fL (81-99) Mean Corpuscular Hemoglobin 32.0 pg (28-32) Mean Corpuscular Hemoglobin Concent 32.4 g/dL (31-35) Red Cell Distribution Width 14.1 % (11.7-14.4) Platelet Count 347 x10e3/uL (140-360) Neutrophils (%) (Auto) 92.9 % (38.7-80.0) Lymphocytes (%) (Auto) 1.7 % (18.0-39.1) Monocytes (%) (Auto) 0.7 % (4.4-11.3) Eosinophils (%) (Auto) 2.1 % (0.0-6.0) Basophils (%) (Auto) 0.7 % (0.0-1.0) Neutrophils # (Auto) 11.2 (2.1-6.9) Lymphocytes # (Auto) 0.2 (1.0-3.2) Monocytes # (Auto) 0.1 (0.2-0.8) Eosinophils # (Auto) 0.3 (0.0-0.4) Basophils # (Auto) 0.1 (0.0-0.1) Absolute Immature Granulocyte (auto 0.23 x10e3/uL (0-0.1) Prothrombin Time 21.8 seconds (11.9-14.5) Prothromb Time International Ratio 1.76 Activated Partial Thromboplast Time 35.6 seconds (23.8-35.5) Urine Color Yellow (YELLOW) Urine Clarity Sl cloudy (CLEAR) Urine pH 5 (5 - 7) Urine Specific Lyons 1.010 (1.010-1.025) Urine Protein Negative (NEGATIVE) Urine Glucose (UA) 2+ (NEGATIVE) Urine Ketones Trace (NEGATIVE) Urine Blood Trace (NEGATIVE) Urine Nitrite Negative (NEGATIVE) Urine Bilirubin Small (NEGATIVE) Urine Urobilinogen 0.2 mg/dL (0.2 - 1) Urine Leukocyte Esterase Negative (NEGATIVE) Urine RBC 0-5 /HPF (0-5) Urine WBC None /HPF (0-5) Urine Epithelial Cells Rare /LPF (NONE) Urine Bacteria Many /HPF (NONE) Sodium Level 125 mmol/L (136-145) Potassium Level 3.2 mmol/L (3.5-5.1) Chloride Level 81 mmol/L (98-107) Carbon Dioxide Level 19 mmol/L (22-29) Anion Gap 28.2 mmol/L (8-16) Blood Urea Nitrogen 81 mg/dL (7-26) Creatinine 2.98 mg/dL (0.57-1.11) Estimat Glomerular Filtration Rate 15 ML/MIN (60-) BUN/Creatinine Ratio 27 (6-25) Glucose Level 802 mg/dL (74-118) Lactic Acid Level 1.9 mmol/L (0.5-2.0) Calcium Level 9.5 mg/dL (8.4-10.2) Total Bilirubin 0.8 mg/dL (0.2-1.2) Aspartate Amino Transf (AST/SGOT) 19 IU/L (5-34) Alanine Aminotransferase (ALT/SGPT) 20 IU/L (0-55) Alkaline Phosphatase 172 IU/L (40-150) Creatine Kinase 72 IU/L (29-168) Creatine Kinase MB 2.80 ng/mL (0-5.0) Troponin I 0.160 ng/mL (0-0.300) B-Type Natriuretic Peptide 306.3 pg/mL (0-100) Total Protein 7.1 g/dL (6.5-8.1) Albumin 1.9 g/dL (3.5-5.0) Globulin 5.2 g/dL (2.3-3.5) Albumin/Globulin Ratio 0.4 (0.8-2.0) Laboratory Tests Test 08/24/19 17:30 08/24/19 17:25 White Blood Count 12.10 x10e3/uL (4.8-10.8) Red Blood Count 3.78 x10e6/uL (3.6-5.1) Hemoglobin 12.1 g/dL (12.0-16.0) Hematocrit 37.3 % (34.2-44.1) Mean Corpuscular Volume 98.7 fL (81-99) Mean Corpuscular Hemoglobin 32.0 pg (28-32) Mean Corpuscular Hemoglobin Concent 32.4 g/dL (31-35) Red Cell Distribution Width 14.1 % (11.7-14.4) Platelet Count 347 x10e3/uL (140-360) Neutrophils (%) (Auto) 92.9 % (38.7-80.0) Lymphocytes (%) (Auto) 1.7 % (18.0-39.1) Monocytes (%) (Auto) 0.7 % (4.4-11.3) Eosinophils (%) (Auto) 2.1 % (0.0-6.0) Basophils (%) (Auto) 0.7 % (0.0-1.0) Neutrophils # (Auto) 11.2 (2.1-6.9) Lymphocytes # (Auto) 0.2 (1.0-3.2) Monocytes # (Auto) 0.1 (0.2-0.8) Eosinophils # (Auto) 0.3 (0.0-0.4) Basophils # (Auto) 0.1 (0.0-0.1) Absolute Immature Granulocyte (auto 0.23 x10e3/uL (0-0.1) Prothrombin Time 21.8 seconds (11.9-14.5) Prothromb Time International Ratio 1.76 Activated Partial Thromboplast Time 35.6 seconds (23.8-35.5) Urine Color Yellow (YELLOW) Urine Clarity Sl cloudy (CLEAR) Urine pH 5 (5 - 7) Urine Specific Lyons 1.010 (1.010-1.025) Urine Protein Negative (NEGATIVE) Urine Glucose (UA) 2+ (NEGATIVE) Urine Ketones Trace (NEGATIVE) Urine Blood Trace (NEGATIVE) Urine Nitrite Negative (NEGATIVE) Urine Bilirubin Small (NEGATIVE) Urine Urobilinogen 0.2 mg/dL (0.2 - 1) Urine Leukocyte Esterase Negative (NEGATIVE) Urine RBC 0-5 /HPF (0-5) Urine WBC None /HPF (0-5) Urine Epithelial Cells Rare /LPF (NONE) Urine Bacteria Many /HPF (NONE) Sodium Level 125 mmol/L (136-145) Potassium Level 3.2 mmol/L (3.5-5.1) Chloride Level 81 mmol/L (98-107) Carbon Dioxide Level 19 mmol/L (22-29) Anion Gap 28.2 mmol/L (8-16) Blood Urea Nitrogen 81 mg/dL (7-26) Creatinine 2.98 mg/dL (0.57-1.11) Estimat Glomerular Filtration Rate 15 ML/MIN (60-) BUN/Creatinine Ratio 27 (6-25) Glucose Level 802 mg/dL (74-118) Lactic Acid Level 1.9 mmol/L (0.5-2.0) Calcium Level 9.5 mg/dL (8.4-10.2) Total Bilirubin 0.8 mg/dL (0.2-1.2) Aspartate Amino Transf (AST/SGOT) 19 IU/L (5-34) Alanine Aminotransferase (ALT/SGPT) 20 IU/L (0-55) Alkaline Phosphatase 172 IU/L (40-150) Creatine Kinase 72 IU/L (29-168) Creatine Kinase MB 2.80 ng/mL (0-5.0) Troponin I 0.160 ng/mL (0-0.300) B-Type Natriuretic Peptide 306.3 pg/mL (0-100) Total Protein 7.1 g/dL (6.5-8.1) Albumin 1.9 g/dL (3.5-5.0) Globulin 5.2 g/dL (2.3-3.5) Albumin/Globulin Ratio 0.4 (0.8-2.0) (ANNIE SILVA NP) Procedures 12 Lead ECG Interpretation Transplant Immunologist: Interpreted by ED physician (jacobo) Date: August 24, 2019 Time: 17:30 Prior ALLERGIST IMMUNOLOGIST tracings: reviewed Rhythm: paced Rate: normal BPM: 87 (ANNIE SILVA NP) Critical Care Time Total Critical Care Time (min): 40 Critical care time exclusive o: separately billable procedures Critcal care necessary due to: sepsis Critcal care time spent by me: blood dram for specimens, examination of patient Comments Dr Pinto in eval pt status (ANNIE SILVA NP) Assessment & Plan Reassessment Reassessment time: 17:31 Reassessment [id number] presented to ed c/o lower abd pain hematuria reported noted redness swelling to right ankle foot exam c/w cellulitis - Dr Pinto in eval pt status - lab lactic blood culture rad ordered - pt medicate w/ vancomycin and zosyn suspect sepsis source cellulitis lactic and blood cultures ordered pt medicated w/ vanc and zosyn no sirs criteria lactic 1.9 wbc 12 creatine 2.98 lab back - pt also has DKA 2nd liter ns given started on insulin drip (ANNIE SILVA NP) Assessment & Plan Final Impression: (1) Cellulitis of right foot (2) DKA (diabetic ketoacidoses) (3) Severe sepsis Assessment & Plan Dr Pinto in re eval pt status discussed lab ct rad results plan of care and need for admit Dr Pinto spoke w/ Dr Starkey will admit (ANNIE SILVA NP) Depart Disposition: ADMITTED Last Vital Signs Date Time Temp Pulse Resp B/P (MAP) Pulse Ox O2 Delivery O2 Flow Rate FiO2 08/24/19 16:53 98.5 88 16 153/103 95 (ANNIE SILVA NP) Home Meds Reported Medications Multivitamin With Minerals (HAIR, SKIN & NAILS) 1 Each Tablet, 1 TAB PO DAILY 08/24/19 [folic acid] No Conflict Check, 400 MCG PO BID 08/24/19 Ferrous Sulfate (FERROUS SULFATE) 325 Mg Tablet, 325 MG PO DAILY 08/24/19 Gabapentin (GABAPENTIN) 300 Mg Capsule, 600 MG PO HS, #60 CAP 08/24/19 Bumetanide (BUMETANIDE) 1 Mg Tablet, 1 MG PO HS, #30 TAB 08/24/19 Prednisone (PREDNISONE) 20 Mg Tab, 20 MG PO BID, #30 TAB x3 days remaining 08/24/19 Apixaban (Eliquis) 2.5 Mg Tablet, 2.5 MG PO BID 08/24/19 Spironolactone (SPIRONOLACTONE) 25 Mg Tablet, 25 MG PO DAILY, #60 TAB 08/25/18 Pantoprazole Sodium* (PROTONIX) 40 Mg Tablet.dr, 40 MG PO DAILY, TAB 08/25/18 Minocycline Hcl (MINOCYCLINE HCL) 50 Mg Capsule, 100 MG PO DAILY, #60 TAB 08/25/18 Lisinopril (LISINOPRIL) 10 Mg Tablet, 40 MG PO DAILY, #30 TAB 08/25/18 Gabapentin (GABAPENTIN) 300 Mg Capsule, 300 MG PO DAILY, #60 CAP 08/25/18 Clopidogrel Bisulfate* (PLAVIX) 75 Mg Tablet, 75 MG PO DAILY, #30 TAB 08/25/18 Bumetanide (BUMETANIDE) 1 Mg Tablet, 2 MG PO DAILY, #30 TAB 08/25/18 Digoxin (DIGOXIN) 125 Mcg Tablet, 0.125 MG PO DAILY, #30 TAB 08/25/18 Amiodarone Hcl (AMIODARONE HCL) 200 Mg Tablet, 200 MG PO DAILY 08/25/18 Metoprolol Succinate (METOPROLOL SUCCINATE) 50 Mg Tab.er.24h, 50 MG PO BID, MG 04/18/18 Vit A,C & E/Lutein/Minerals (OCUVITE TABLET) 1 Each Tablet, 1 EACH PO DAILY, TAB 04/17/17 Mirabegron (MYRBETRIQ) 25 Mg Tab.er.24h, 50 MG PO DAILY 04/17/17 Carrie-3 Fatty Acids (FISH OIL) 300 Mg Capsule, 1 TAB PO DAILY 01/19/13 Folic Acid (Folic Acid) 0.8 Mg Tablet, 800 MG PO QPM 01/03/12 Multivit With Calcium,Iron,Min (ONE-A-DAY WOMEN'S) 1 Each Tablet, 1 TAB PO DAILY 01/03/12 Atorvastatin Calcium (Lipitor) 40 Mg Tablet, 40 MG PO QPM 01/03/12 Levothyroxine Sodium (Levoxyl) 50 Mcg Tablet, 50 MCG PO QAM 01/03/12 Medications in the ED Sodium Chloride 1,000 ml @ 0 mls/hr Q0M STAT IV ; Start 08/24/19 at 16:52; Stop 08/24/19 at 16:53 Piperacillin Sod/ Tazobactam Sod 50 ml @ 50 mls/hr ONCE ONCE IV ; Start 08/24/19 at 16:52; Stop 08/24/19 at 17:51 Vancomycin HCl 250 ml @ 250 mls/hr ONCE ONCE IV ; Start 08/24/19 at 16:52; Stop 08/24/19 at 17:51 (ANNIE SILVA OUTBOARD MOTOR TESTER) Physician Attestation Provider Attestation The patient's history, exam findings, diagnostics, and a summary of any interventions or procedures was reviewed in detail with our KAJAL. I personally i nterviewed and examined the patient, and I have reviewed and agree with the HPI andexam. My personal exam shows ill appearing 79 yo in DKA. I confirm the diagnosis as documented by the KAJAL. I have reviewed and agree with the care plan articulated in the disposition section. (ALEX PINTO DO) ANNIE SILVA OUTBOARD MOTOR TESTER August 24, 2019 17:33 ALEX PINTO DO Sep 07, 2019 23:28
[2019-08-24 17:43] LABS: BASOPHILS # (AUTO) 0.1 (0.0-0.1); BASOPHILS % 0.7 % (0.0-1.0); EOSINOPHILS # (AUTO) 0.3 (0.0-0.4); EOSINOPHILS % 2.1 % (0.0-6.0); HEMATOCRIT 37.3 % (34.2-44.1); HEMOGLOBIN 12.1 g/dL (12.0-16.0); LYMPHOCYTES # (AUTO) 0.2 (1.0-3.2); LYMPHOCYTES % 1.7 % (18.0-39.1); MEAN CORPUSCULAR HGB CONC 32.4 g/dL (31-35); MEAN CORPUSCULAR VOLUME 98.7 fL (81-99); MONOCYTES # (AUTO) 0.1 (0.2-0.8); MONOCYTES % 0.7 % (4.4-11.3); NEUTROPHILS # (AUTO) 11.2 (2.1-6.9); NEUTROPHILS % 92.9 % (38.7-80.0); PLATELET COUNT 347 x10e3/uL (140-360); RED BLOOD COUNT 3.78 x10e6/uL (3.6-5.1); RED CELL DISTRIBUTION WIDTH 14.1 % (11.7-14.4)
--- NOTE | 2019-08-24 17:43 | NUR ---
INCONTINENCE CARE PROVIDED FOR PATIENT.
[2019-08-24] MEDS ORDERED: ELIQUIS2.5 MG PO (17:48)
[2019-08-24] MEDS ORDERED: PREDNISONE20 MG PO (17:48)
[2019-08-24 17:54] LABS: INR 1.76; PROTHROMBIN TIME 21.8 seconds (11.9-14.5)
[2019-08-24 17:55] LABS: PARTIAL THROMBOPLASTIN TIME 35.6 seconds (23.8-35.5)
[2019-08-24 17:58] LABS: BILIRUBIN,URINE SMALL (NEGATIVE); CLARITY,URINE SL CLOUDY (CLEAR); COLOR,URINE YELLOW (YELLOW); KETONES,URINE TRACE (NEGATIVE); LEUKOCYTE ESTERASE ,URINE NEGATIVE (NEGATIVE); NITRITE,URINE NEGATIVE (NEGATIVE); PROTEIN,URINE DIPSTICK NEGATIVE (NEGATIVE); URINE UROBILINOGEN 0.2 mg/dL (0.2 - 1)
[2019-08-24 18:04] LABS: ALBUMIN 1.9 g/dL (3.5-5.0); ALBUMIN/GLOBULIN RATIO 0.4 (0.8-2.0); ANION GAP 28.2 mmol/L (8-16); CALCIUM 9.5 mg/dL (8.4-10.2); CREATININE, SERUM 2.98 mg/dL (0.57-1.11); POTASSIUM 3.2 mmol/L (3.5-5.1)
[2019-08-24 18:08] LABS: BACTERIA,URINE MANY /HPF; EPITHELIAL CELLS,URINE RARE /LPF; RBC,URINE 0-5 /HPF (0-5)
[2019-08-24 18:10] LABS: CREATINE KINASE MB 2.8 ng/mL (0-5.0)
[2019-08-24 18:22] LABS: B-TYPE NATRIURETIC PEPTIDE2 306.3 pg/mL (0-100)
[2019-08-24] MEDS ORDERED: INSULIN REGULAR, HUMAN 3ML VL 100 UNIT in SODIUM CHLORIDE 0.9% 100 ML 100 ML SQ SCH ×2 (18:26)
--- NOTE | 2019-08-24 19:00 | NUR ---
REPORT GIVEN TO MOLLY GARCES
--- OUTSIDE RECORDS SUMMARY | 2019-08-24 19:23 | XMS REPORT | Continuity of Care Document ---
Author Author VioozerFELIPE Organization [employer] Address Unknown Phone Unavailable Care Team Providers Care Coffee Maker Name Role Phone [employer] Unavailable Un available Problems Problem Status Onset Date Classification Date Reported Comments Source SEVERE LEG PAIN Active 06/30/2019 [facility] [place] SYNCOPAL EPISODE Active 08/20/2018 [facility] SYNCOPE, ELEVATED TROPONIN Act jeet 08/20/2018 [facility] BI-V ICD IMPLANT / AV NODE ABALTION Active 08/12/2018 [facility] Atherosclerotic heart disease of [place] coronary artery without angina pectoris 05/07/2018 11/20/2018 [facility] LT HEART CATH / POSS PCI /C IMPELLA Active 04/29/2018 [facility] Chronic systolic (congestive) heart failure 11/20/2018 [facility] Ischemic cardiomyopathy 11/20/2018 [facility] Unspecified atrial fibrillation 11/20/2018 [facility] Coronary atherosclerosis due to calcifie d coronary lesion 11/20/2018 [facility] Atherosclerosis of aorta 11/20/2018 [facility] Dysphagia, unspecified 11/20/2018 [facility] Hypertensive heart disease with heart failure 11/20/2018 [facility] Congenital hypothyroidism without goiter 11/20/2018 [facility] Type 2 diabetes mellitus without complications 11/20/2018 [facility] Paroxysmal atrial fibrillation 11/20/2018 [facility] Mixed hyperlipidemia 11/20/2018 [facility] Personal history of nicotine dependence 11/20/2018 [facility] Atrial fibrillation (disorder) Active Problem 07/2019 [facility] [place] Congestive heart failure (disorder) Active Problem 07/2019 [facility] [place] Diabetes mellitus (disorder) A ctive Problem 07/2019 [facility] [place] Dyspnea on exertion (finding) Active Problem 07/2019 [facility] [place] Gastroesophageal reflux disease (disorder) Active Problem 08/03/2019 [facility] [place] Hypertensive disorder, systemic arterial (disorder) Active Problem 08/03/2019 [facility] [place] Hypothyroidism (disorder) [facility]i [facility] Peripheral venous insufficiency (disorder) Active Problem 08/03/2019 [facility] CARDIAC CATHETERIZATION CAUSE ABN REACT/ Active [facility] SYNCOPE AND COLLAPSE Active [facility] ABNORMAL LEVELS OF OTHER SERUM ENZYMES Active [facility] Medications Medication Details Route Status Patient Instructions Ordering Provider Order Date Source bumetanide 1 mg oral tablet 0. 5 mg = 0.5 tab, PO, BID, # 60 tab, 0 Refill(s), Pharmacy: [facility] [id number] Active 08/24/2018 [facility] metoprolol 50 mg oral tablet, extended release 50 mg = 1 tab, PO, Daily, # 30 tab, 0 Refill(s), Pharmacy: [facility] [id number] Active 08/24/2018 [facility] apixaban 2.5 mg oral tablet 2. 5 mg = 1 tab, PO, Q12H, # 60 tab, 0 Refill(s), Pharmacy: [facility] [id number] Active 08/24/2018 [facility] Clonidine Notes: (Same As: Cat apres) No Longer Active 08/23/2018 [facility] Morphine 2 mg, 1 mL, Route: IV P, Drug form: SOLN, Q4H, Dosing Weight 59.091, kg, PRN Pain Score 4-6, Start date: 08/23/18 11:54:00 CDT, Duration: 30 day, Stop date: 09/22/18 11:53:00 CDT No Longer Active 08/23/2018 [facility] Potassium Chloride Notes: Infu se at a rate of 10 mEq/hr. (Same as: KCL) call [phone] after tubing med call [phone] after tubing med call [phone] after tubing med Inactive 08/23/2018 [facility] Eliquis Notes: Same as: Eliquis No Longer Active 08/23/2018 [facility] Spironolactone Notes: (Same As : Aldactone) No Longer Active 08/23/2018 [facility] Bumex Notes: (Same As: Bumex) No Longer Active 08/23/2018 [facility] Bumex Notes: (Same As: Bumex) Inactive 08/23/2018 [facility] Glucagon 1 mg, Route: IM, Drug form: PDR/INJ, PRN, Dosing Weight 59.091, kg, PRN Blood Glucose Results, Start date: 08/22/18 17:03:00 CDT, Duration: 30 day, Stop date: 09/21/18 17:02:00 CDT No Longer Active 08/22/2018 [facility] Dextrose 50% Syringe 25 gm, 50 mL, Route: IVP, Drug Form: INJ, Dosing Weight 59.091, kg, PRN, PRN Blood Glucose Results, Start date: 08/22/18 17:03:00 CDT, Duration: 30 day, Stop date: 09/21/18 17:02:00 CDT No Longer Active 08/22/2018 [facility] Insulin Lispro Notes: (Same as : Humalog) Roll in palms of hands gently; Do not shake vigorously. WASTE: F/P - Black; E - Municipal Trash Bin Stable for 28 days at room temperature. Expires in days from Date No Longer Active 08/22/2018 [facility] metoprolol extended release No kaci: (Same as: Toprol XL) May split tab, but do not crush. No Longer Active 08/22/2018 [facility] Hydralazine Notes: (Same as: A presoline) Push over 5 minutes No Longer Active 08/22/2018 [facility] Aspirin Notes: Take with food. No Longer Active 08/21/2018 [facility] Folic Acid 0.4 mg, 1 tab, Rout e: PO, Drug form: TAB, Daily, Dosing Weight 59.091, kg, Start date: 08/21/18 9:00:00 CDT, Duration: 30 day, Stop date: 09/19/18 9:00:00 CDT No Longer Active 08/21/2018 [facility] Digoxin Notes: Take on an Empt y Stomach (Same as: Lanoxin) Inactive 08/21/2018 [facility] clopidogrel Notes: (Same As: P lavix) No Longer Active 08/21/2018 [facility] Amiodarone Notes: (Same as: Co rdarone) Inactive 08/21/2018 [facility] pantoprazole Notes: Tablet ritika uld not be chewed or crushed. (Same as: Protonix) N o Longer Active 08/21/2018 [facility] Lisinopril Notes: (Same as: Pr inivil, Zestril) No Longer Active 08/21/2018 [facility] atorvastatin Notes: (Same as: Lipitor) No Longer Active 08/21/2018 [facility] Trazodone Notes: (Same As: Gume yrel) No Longer Active 08/21/2018 [facility] Minocycline Notes: (Same as:Fariba nocin) No milk/antacids/iron. No Longer Active 08/20/2018 [facility] Docusate Notes: (Same as: Cola ce) (Do Not Crush) No Longer Active 08/20/2018 [facility] metoprolol extended release No kaci: (Same as: Toprol XL) May split tab, but do not crush. No Longer Active 08/20/2018 [facility] gabapentin 300 MG Oral Capsule Notes: (Same as: Neurontin) No Longer Active 08/20/2018 [facility] ferrous sulfate Notes: Give wi th food. "Do Not Crush" No Longer Active 08/20/2018 [facility] Dextrose 50% Syringe 12.5 gm, 25 mL, Route: IVP, Drug Form: INJ, Dosing Weight 59.091, kg, PRN, PRN Blood Glucose Results, Start date: 08/20/18 15:36:00 CDT, Duration: 30 day, Stop date: 09/19/18 15:35:00 CDT No Longer Active 08/20/2018 [facility] Glucagon 1 mg, Route: IM, Drug form: PDR/INJ, PRN, Dosing Weight 59.091, kg, PRN Blood Glucose Results, Start date: 08/20/18 15:36:00 CDT, Duration: 30 day, Stop date: 09/19/18 15:35:00 CDT No Longer Active 08/20/2018 [facility] Ondansetron Notes: (Same as: Marcia alexander) MEDICATION WASTE Product Size: 4 mg Product Wasted: ___ mg No Longer Active 08/20/2018 [facility] Acetaminophen Notes: Do not ex ceed 4 gm/day. (Same as: Tylenol) No Longer Active 08/20/2018 [facility] Aspirin 324 mg, Route: CHEW, D rug form: CHEWTAB, ONCE, Dosing Weight 59.091, kg, Priority: STAT, Start date: 08/20/18 10:47:00 CDT, Stop date: 08/20/18 10:47:00 CDT Inactive 08/20/2018 [facility] Saline Flush 0.9% Notes: (Same as: BD Posiflush) No Longer Active 08/20/2018 [facility] Sodium Chloride 0.9% (Bolus) IV 500 mL, Infuse Over: 1 hr, Route: IV, ONCE, Priority: STAT, Dosing Weight 59.091 kg, Start date: 08/20/18 9:20:00 CDT, Stop date: 08/20/18 9:20:00 CDT Inactive 08/20/2018 [facility] tramadol hydrochloride 50 MG Oral Tablet 50 mg = 1 tab, PO, Q8H, PRN Pain Score 1-5, # 20 tab, 0 Refill(s), given to patient On Hold 08/19/2018 [facility] minocycline 100 mg oral capsule 100 mg = 1 cap, PO, Q12H, X 7 day, # 14 cap, 0 Refill(s), given to patient On Hold 08/19/2018 [facility] 24 HR mirabegron 50 MG Extended Release Tablet [Myrbetriq] 50 mg, 1 tab, Route: PO, Drug form: ERTA B, Daily, Dosing Weight 59.091, kg, Start date: 08/19/18 9:00:00 CDT, Duration: 30 day, Stop date: 09/17/18 9:00:00 CDT Inactive 08/19/2018 [facility] Lisinopril Notes: (Same as: Pr inivil, Zestril) Inactive 08/19/2018 [facility] Folic Acid 0.4 mg, 1 tab, Rout e: PO, Drug form: TAB, Daily, Dosing Weight 59.091, kg, Start date: 08/19/18 9:00:00 CDT, Duration: 30 day, Stop date: 09/17/18 9:00:00 CDT Inactive 08/19/2018 [facility] Digoxin Notes: Take on an Empt y Stomach (Same as: Lanoxin) Inactive 08/19/2018 [facility] clopidogrel Notes: (Same As: P lavix) Inactive 08/19/2018 [facility] vancomycin + Sodium Chloride 0.9% IV 250 mL 2001 mg: infuse over 2.5 hours For adult patients only: Round to nearest 250 mg per Medical Staff approval MEDICATION WASTE Product Size: 1000 mg Product Wasted: ___ mg No Longer Active 08/19/2018 [facility] metoprolol extended release No kaci: (Same as: Toprol XL) May split tab, but do not crush. No Longer Active 08/19/2018 [facility] atorvastatin Notes: (Same as: Lipitor) No Longer Active 08/19/2018 [facility] Spironolactone Notes: (Same As : Aldactone) No Longer Active 08/18/2018 [facility] pantoprazole Notes: Tablet ritika uld not be chewed or crushed. (Same as: Protonix) N o Longer Active 08/18/2018 [facility] RN please bring home med MYRBETRIQ to Pharmacy for label RN please bring home med MYRBETRIQ to Pharmacy for label, 1, Drug form: MISC, Route: MISC, TID, 08/18/18 15:00:00 CDT, Duration: 30 day, Stop date: 09/17/18 9:00:00 CDT No Longer Active 08/18/2018 [facility] gabapentin 300 MG Oral Capsule Notes: (Same as: Neurontin) No Longer Active 08/18/2018 [facility] ferrous sulfate Notes: Give wi th food. "Do Not Crush" No Longer Active 08/18/2018 [facility] *RN please update h/w/a in ad hoc* *RN please update h/w/a in ad hoc*, reminder, Drug form: MISC, Route: MISC, Q30Min, 08/18/18 14:30:00 CDT, Duration: 30 day, Stop date: 09/17/18 14:00:00 CDT Inactive 08/18/2018 [facility] Trazodone Hydrochloride 50 MG Oral Tablet Notes: (Same As: Desyrel) No Longer Active 08/18/2018 [facility] Morphine 2 mg, 1 mL, Route: IV P, Drug form: SOLN, Q4H, Dosing Weight 59.091, kg, PRN Pain Score 4-6, Start date: 08/18/18 10:12:00 CDT, Duration: 30 day, Stop date: 09/17/18 10:11:00 CDT No Longer Active 08/18/2018 [facility] Acetaminophen Notes: Do not ex ceed 4 gm/day. (Same as: Tylenol) No Longer Active 08/18/2018 [facility] Vancomycin 1,000 mg, Route: IV PB, ONCE, Dosing Weight 59.091, kg, Time Critical Medication, Start date: 08/18/18 10:12:00 CDT, Stop date: 08/18/18 10:12:00 CDT, ABX Indication: Surgical Prophylaxis Inactive 08/18/2018 [facility] metoprolol succinate 50 mg oral capsule, extended release 150 mg = 3 cap, PO, BID, 0 Refill(s) On Hold 08/18/2018 [facility] Digoxin 0.125 MG Oral Tablet [Digox] 125 microgram = 1 tab, PO, Daily, 0 Refill(s) On Hold 08/15/2018 [facility] spironolactone 25 mg oral tablet 25 mg = 1 tab, PO, BID, # 60 tab, 0 Refill(s) On Hold 08/15/2018 [facility] pantoprazole 40 mg oral enteric coated tablet 40 mg = 1 tab, PO, Daily, 0 Refill(s) On Hold 08/15/2018 [facility] Trazodone Hydrochloride 50 MG Oral Tablet 50 mg = 1 tab, PO, TID, 0 Refill(s) On Hold 08/15/2018 [facility] AMIODarone 200 mg oral tablet 200 mg = 1 tab, PO, Daily, 0 Refill(s) On Hold 08/15/2018 [facility] ferrous sulfate 325 MG Oral Tablet 325 mg = 1 tab, PO, TID, 0 Refill(s) On Hold 08/15/2018 [facility] lisinopril 40 mg oral tablet 4 0 mg = 1 tab, PO, Daily, 0 Refill(s) On Hold 08/15/2018 [facility] 24 HR mirabegron 50 MG Extended Release Tablet [Myrbetriq] 50 mg = 1 tab, PO, Daily, # 30 tab, 0 Refill(s) On Hold 08/15/2018 [facility] gabapentin 300 MG Oral Capsule 300 mg = 1 cap, PO, TID, 0 Refill(s) On Hold 08/15/2018 [facility] multivitamin Daily, 0 Refill(s) No Longer Active 08/15/2018 [facility] Ocuvite PO, Daily, 0 Refill(s) On Hold 08/15/2018 [facility] Folic Acid 0.4 MG Oral Tablet 0.4 mg = 1 tab, PO, Daily, # 100 tab, 0 Refill(s) On 08/15/2018 [facility] gabapentin Notes: (Same as: Ne urontin) Inactive 05/03/2018 [facility] clopidogrel 75 mg oral tablet 75 mg = 1 tab, PO, Daily, # 90 tab, 3 Refill(s) Active 05/03/2018 [facility] apixaban 5 mg oral tablet 5 mg = 1 tab, PO, Q12H, # 180 tab, 3 Refill(s) No Longer Active 05/03/2018 [facility] metoprolol 100 mg oral tablet, extended release 100 mg = 1 tab, PO, BID, # 180 tab, 3 Refill(s) No Longer Active 05/03/2018 [facility] gabapentin Notes: (Same as: Ne urontin) Inactive 05/03/2018 [facility] Protonix Notes: Tablet should not be chewed or crushed. (Same as: Protonix) Inactive 05/03/2018 [facility] Potassium Chloride Notes: Infu se at a rate of 10 mEq/hr. (Same as: KCL) Inactive 05/03/2018 [facility] Potassium Chloride Notes: (Sagar e as: K-Dur 20) "Do Not Crush" Give with food and full glass of water For patients unable to swallow tablet, dissolve in one half glass of water. Allow about 2 minutes for the tab lets to disintegrate. Stir before giving to prepare slurry and administer. Please exclude Patients with feeding tube less than 14 [address]ana (Dobhoff, J-tube etc) and pediatric and patients. Inactive 05/03/2018 [facility] Temazepam Notes: (Same As: Res toril) No Longer Active 05/03/2018 [facility] metoprolol extended release No kaci: (Same as: Toprol XL) May split tab, but do not crush. 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 (Same As: Ecotrin) No Longer Active 05/02/2018 [facility] Acetaminophen Notes: Do not ex ceed 4 gm/day. (Same as: Tylenol) No Longer Active 05/02/2018 [facility] Thyroxine Notes: Take 1 hour b efore or 2 hours after meal; Enteral feeds may interefere with the absorption of this medication.(Same as:Levothroid, Synthroid) No Longer Active 05/02/2018 [facility] Eliquis Notes: Same as: Eliquis No Longer Active 05/02/2018 [facility] atorvastatin Notes: (Same as: Lipitor) No Longer Active 05/02/2018 [facility] pantoprazole Notes: Tablet ritika uld not be chewed or crushed. (Same as: Protonix) N o Longer Active 05/01/2018 [facility] Nitroglycerin Notes: (Same as: Nitroquick, Nitrostat) "Do Not Crush" Sublingual tablet No Longer Active 05/01/2018 [facility] metoprolol 100 mg oral tablet, extended release 100 mg = 1 tab, PO, BID, 0 Refill(s) N o Longer Active 05/01/2018 [facility] Folic Acid 0.8 mg, PO, Daily, 0 Refill(s) No Longer Active 05/01/2018 [facility] Fish Oil 500 mg oral capsule 1 ,000 mg = 2 cap, PO, BID, 0 Refill(s) Active 04/30/2018 [facility] Esomeprazole 40 MG Enteric Coated Capsule 40 mg = 1 cap, PO, Daily, # 30 cap, 0 Refill(s) No Longer Active 04/30/2018 [facility] lisinopril 5 mg oral tablet 5 mg = 1 tab, PO, Daily, # 30 tab, 0 Refill(s) No Longer Active 04/30/2018 [facility] levothyroxine 50 mcg (0.05 mg) oral tablet 50 microgram = 1 tab, PO, Daily, # 30 tab, 0 Refill(s) No Longer Active 04/30/2018 [facility] clopidogrel 75 mg oral tablet 75 mg = 1 tab, PO, Daily, # 30 tab, 0 Refill(s) No Longe r Active 04/30/2018 [facility] atorvastatin 40 mg oral tablet 40 mg = 1 tab, PO, Bedtime, # 30 tab, 0 Refill(s) Active 04/30/2018 [facility] Aspirin 81 MG Enteric Coated Tablet 81 mg = 1 tab, PO, Daily, # 90 tab, 3 Refill(s) N o Longer Active 04/30/2018 [facility] Aspirin 81 MG Enteric Coated Tablet 81 mg = 1 tab, PO, Daily, # 90 tab, 3 Refill(s) N o Longer Active 04/30/2018 [facility] Allergies, Adverse Reactions, Alerts Substance Category Reaction Severity Reaction type Status Date Reported Comments Source Adhesive Assertion Drug allergy Active [facility] [place] Tape Assertion Drug allergy Active [facility] [place] HYDROcodone Assertion Drug allergy Active [facility] [place] Immunizations No Data Provided for This Section Results Order Name Results Value Reference Range Date Interpretation Comments Source CHEM PANEL Magnesium Lvl 1.6 1.8 - 2.4 08/23/2018 [facility] ELECTROLYTES AGAP 16.3 10.0 - 20.0 08/23/2018 [facility] ELECTROLYTES eGFR 83 08/23/2018 Result Comment: The [...] should be multiplied by the estimated BMI. [facility] ELECTROLYTES Calcium Lvl 8.9 8.5 - 10.5 08/23/2018 [facility] ELECTROLYTES CO2 19 24 - 32 08/23/2018 [facility] ELECTROLYTES Chloride Lvl 111 95 - 109 08/23/2018 [facility] ELECTROLYTES Potassium Lvl 3.3 3.5 - 5.1 08/23/2018 [facility] ELECTROLYTES Creatinine Lvl 0.7 0 0.50 - 1.40 08/23/2018 [facility] ELECTROLYTES Sodium Lvl 143 135 - 145 08/23/2018 [facility] ELECTROLYTES Glucose Lvl 133 70 - 99 08/23/2018 [facility] ELECTROLYTES BUN 14 7 - 22 08/23/2018 [facility] HEMATOLOGY MCH 30.6 27.0 - 31.0 08/23/2018 [facility] HEMATOLOGY MCV 94.4 80.0 - 98.0 08/23/2018 [facility] HEMATOLOGY RDW 16.4 11.5 - 14.5 08/23/2018 [facility] MCHC 32.4 32.0 - 36.0 08/23/2018 [facility] HEMATOLOGY RBC 4.91 4.20 - 5.40 08/23/2018 [facility] HEMATOLOGY WBC 8.1 3.7 - 10.4 08/23/2018 [facility] HEMATOLOGY Hct 46.3 36.0 - 48.0 08/23/2018 [facility] HEMATOLOGY Hgb 15.0 12.0 - 16.0 08/23/2018 [facility] HEMATOLOGY Platelet 203 133 - 450 08/23/2018 [facility] MPV 7.9 7.4 - 10.4 08/23/2018 [facility] HEMATOLOGY Basophils # 0.1 0.0 - 0.2 08/23/2018 [facility] HEMATOLOGY Neutrophils # 5.6 1.5 - 8.1 08/23/2018 [facility] HEMATOLOGY Basophils 0.7 0.0 - 1.0 08/23/2018 [facility] HEMATOLOGY Lymphocytes # 1.5 1.0 - 5.5 08/23/2018 [facility] HEMATOLOGY Eosinophils # 0.2 0.0 - 0.5 08/23/2018 [facility] HEMATOLOGY Eosinophils 2.7 0.0 - 4.0 08/23/2018 [facility] Monocytes # 0.7 0.0 - 0.8 08/23/2018 [facility] Monocytes 8.0 2.0 - 12.0 08/23/2018 [facility] HEMATOLOGY Segs 69.6 45.0 - 75.0 08/23/2018 [facility] HEMATOLOGY Lymphocytes 19.0 20.0 - 40.0 08/23/2018 [facility] CARDIAC ENZYMES Troponin-I 0.39 0.00 - 0.40 08/21/2018 [facility] URINE AND STOOL UA Urobilinogen <=1.0 mg/dL 0.1 - 1.0 08/20/[address] [facility] [address] URINE AND STOOL UA Bacteria Occasional /HPF None Seen /HPF 08/20/2018 [facility] URINE AND STOOL UA RBC 3 0 - 2 08/20/2018 [facility] URINE AND STOOL UA Sq Epi Moderate /LPF Few /LPF 08/20/2018 [facility] URINE AND STOOL UA WBC 1 0 - 5 08/20/2018 [facility] URINE AND STOOL UA Mucus Few /LPF None Seen /LPF 08/20/2018 [facility] URINE AND STOOL UA Blood Negative (08/20/18 1:05 PM) Negative 08/20/2018 [facility] URINE AND STOOL UA Hyal Cast 5 0 - 2 08/20/2018 [facility] URINE AND STOOL UA Bili Negative *NA* (08/20/18 1:05 PM) Negative 08/20/2018 [facility] URINE AND STOOL UA Leuk Est Negative (08/20/18 1:05 PM) Negative 08/20/2018 [facility] URINE AND STOOL UA Nitrite Negative (08/20/18 1:05 PM) Negative 08/20/2018 [facility] URINE AND STOOL UA Ketones Trace mg/dL Negative mg/dL 08/20/2018 [facility] URINE AND STOOL UA pH 5.0 5.0 - 8.0 08/20/2018 [facility] URINE AND STOOL UA Spec Grav 1.023 <=1.030 08/20/2018 [facility] URINE AND STOOL UA Color Yellow *NA* (08/20/18 1:05 PM) Yellow 08/20/2018 [facility] URINE AND STOOL UA Turbidity Slight *ABN* (08/20/18 1:05 PM) Clear 08/20/2018 [facility] URINE AND STOOL UA Protein 30 mg/dL Negative mg/dL 08/20/2018 [facility] URINE AND STOOL UA Glucose Negative mg/dL Negative mg/dL 08/20/[address] [facility] [address] CARDIAC ENZYMES BNP 290 <=100 pg/mL 08/20/2018 [facility] CARDIAC ENZYMES Troponin-I 0.64 0.00 - 0.40 08/20/2018 Result Comment: Critical Result(s) mathias d to Dr. Ernst at 08/20/2018 10:44 by AD. Read back OK. [facility] CHEM PANEL eGFR 63 08/20/2018 Result Comment: [...] Albumin Lvl 3.1 3.5 - 5.0 08/20/2018 [facility] CHEM PANEL Total Protein 6.9 6.4 - 8.4 08/20/2018 [facility] CHEM PANEL ALT 29 0 - 65 08/20/2018 [facility] CHEM PANEL Potassium Lvl 4.2 3.5 - 5.1 08/20/2018 [facility] CHEM PANEL Bili Total 1.0 0.2 - 1.3 08/20/2018 [facility] CHEM PANEL AST 28 0 - 37 08/20/2018 [facility] CHEM PANEL Alk Phos 78 39 - 136 08/20/2018 [facility] CHEM PANEL Glucose Lvl 135 70 - 99 08/20/2018 [facility] CHEM PANEL CO2 20 24 - 32 08/20/2018 [facility] CHEM PANEL Calcium Lvl 8.6 8.5 - 10.5 08/20/2018 [facility] CHEM PANEL Chloride Lvl 108 95 - 109 08/20/2018 [facility] CHEM PANEL BUN 16 7 - 22 08/20/2018 [facility] CHEM PANEL Creatinine Lvl 0.88 0.50 - 1.40 08/20/2018 [facility] CHEM PANEL Sodium Lvl 139 135 - 145 08/20/2018 [facility] CHEM PANEL Globulin 3.8 2.7 - 4.2 08/20/2018 [facility] CHEM PANEL A/G Ratio 0.8 0.7 - 1.6 08/20/2018 [facility] CHEM PANEL AGAP 15.2 10.0 - 20.0 08/20/2018 [facility] CHEM PANEL B/C Ratio 18 6 - 25 08/20/2018 [facility] HEMATOLOGY INR 1.04 0.85 - 1.17 08/20/2018 [facility] HEMATOLOGY PT 13.4 12.0 - 14.7 08/20/2018 [facility] HEMATOLOGY MCH 30.8 27.0 - 31.0 08/20/2018 [facility] HEMATOLOGY Hct 43.5 36.0 - 48.0 08/20/2018 [facility] MCV 94.0 80.0 - 98.0 08/20/2018 [facility] RDW 16.1 11.5 - 14.5 08/20/2018 [facility] MCHC 32.8 32.0 - 36.0 08/20/2018 [facility] MPV 8.3 7.4 - 10.4 08/20/2018 [facility] Platelet 200 133 - 450 08/20/2018 [facility] WBC 8.3 3.7 - 10.4 08/20/2018 [facility] RBC 4.63 4.20 - 5.40 08/20/2018 [facility] Hgb 14.3 12.0 - 16.0 08/20/2018 [facility] PTT 28.2 22.9 - 35.8 08/20/2018 [facility] Neutrophils # 6.4 1.5 - 8.1 08/20/2018 [facility] Monocytes # 0.7 0.0 - 0.8 08/20/2018 [facility] Lymphocytes # 1.1 1.0 - 5.5 08/20/2018 [facility] Eosinophils # 0.1 0.0 - 0.5 08/20/2018 [facility] Basophils # 0.1 0.0 - 0.2 08/20/2018 [facility] Basophils 0.8 0.0 - 1.0 08/20/2018 [facility] Monocytes 8.0 2.0 - 12.0 08/20/2018 [facility] Eosinophils 1.6 0.0 - 4.0 08/20/2018 [facility] Lymphocytes 13.2 20.0 - 40.0 08/20/2018 [facility] Segs 76.4 45.0 - 75.0 08/20/2018 [facility] ELECTROLYTES AGAP 11.9 10.0 - 20.0 08/15/2018 [facility] ELECTROLYTES eGFR 64 08/15/2018 Result Comment: The [...] should be multiplied by the estimated BMI. [facility] ELECTROLYTES Potassium Lvl 4.9 3.5 - 5.1 08/15/2018 [facility] ELECTROLYTES Chloride Lvl 109 95 - 109 08/15/2018 [facility] ELECTROLYTES CO2 24 24 - 32 08/15/2018 [facility] ELECTROLYTES Calcium Lvl 9.1 8.5 - 10.5 08/15/2018 [facility] ELECTROLYTES Sodium Lvl 140 135 - 145 08/15/2018 [facility] ELECTROLYTES Glucose Lvl 111 70 - 99 08/15/2018 [facility] ELECTROLYTES BUN 17 7 - 22 08/15/2018 [facility] ELECTROLYTES Creatinine Lvl 0.8 7 0.50 - 1.40 08/15/2018 [facility] HEMATOLOGY Basophils # 0.1 0.0 - 0.2 08/15/2018 [facility] HEMATOLOGY Basophils 0.9 0.0 - 1.0 08/15/2018 [facility] HEMATOLOGY Eosinophils 1.6 0.0 - 4.0 08/15/2018 [facility] HEMATOLOGY Neutrophils # 4.2 1.5 - 8.1 08/15/2018 [facility] Monocytes # 0.5 0.0 - 0.8 08/15/2018 [facility] Lymphocytes # 1.7 1.0 - 5.5 08/15/2018 [facility] Eosinophils # 0.1 0.0 - 0.5 08/15/2018 [facility] HEMATOLOGY Lymphocytes 26.4 20.0 - 40.0 08/15/2018 [facility] HEMATOLOGY Segs 63.9 45.0 - 75.0 08/15/2018 [facility] Monocytes 7.2 2.0 - 12.0 08/15/2018 [facility] HEMATOLOGY INR 1.52 0.85 - 1.17 08/15/2018 [facility] HEMATOLOGY PT 18.0 12.0 - 14.7 08/15/2018 [facility] PTT 29.8 22.9 - 35.8 08/15/2018 [facility] Platelet 284 133 - 450 08/15/2018 [facility] MCHC 32.3 32.0 - 36.0 08/15/2018 [facility] HEMATOLOGY MPV 7.9 7.4 - 10.4 08/15/2018 [facility] HEMATOLOGY RDW 16.1 11.5 - 14.5 08/15/2018 [facility] HEMATOLOGY MCH 30.6 27.0 - 31.0 08/15/2018 [facility] HEMATOLOGY WBC 6.6 3.7 - 10.4 08/15/2018 [facility] HEMATOLOGY RBC 5.02 4.20 - 5.40 08/15/2018 [facility] HEMATOLOGY Hgb 15.4 12.0 - 16.0 08/15/2018 [facility] HEMATOLOGY MCV 94.9 80.0 - 98.0 08/15/2018 [facility] HEMATOLOGY Hct 47.7 36.0 - 48.0 08/15/2018 [facility] ELECTROLYTES Potassium Lvl 3.6 3.5 - 5.1 05/03/2018 [facility] CHEM PANEL eGFR 85 05/03/2018 Result Comment: [...] should be multiplied by the estimated BMI. [facility] CHEM PANEL Potassium Lvl 2.9 3.5 - 5.1 05/03/2018 Result Comment: Critical Result(s) mey ernst at 05/03/2018 05:48 byjw. Read back OK. [facility] CHEM PANEL Sodium Lvl 143 135 - 145 05/03/2018 [facility] CHEM PANEL Creatinine Lvl 0.68 0.50 - 1.40 05/03/2018 [facility] CHEM PANEL Calcium Lvl 8.7 8.5 - 10.5 05/03/2018 [facility] CHEM PANEL AGAP 10.9 10.0 - 20.0 05/03/2018 [facility] CHEM PANEL BUN 15 7 - 22 05/03/2018 [facility] CHEM PANEL Glucose Lvl 121 70 - 99 05/03/2018 [facility] CHEM PANEL Chloride Lvl 110 95 - 109 05/03/2018 [facility] CHEM PANEL CO2 25 24 - 32 05/03/2018 [facility] MPV 7.6 7.4 - 10.4 05/03/2018 [facility] MCH 29.4 27.0 - 31.0 05/03/2018 [facility] MCHC 33.3 32.0 - 36.0 05/03/2018 [facility] HEMATOLOGY RDW 16.2 11.5 - 14.5 05/03/2018 [facility] Platelet 316 133 - 450 05/03/2018 [facility] WBC 7.2 3.7 - 10.4 05/03/2018 [facility] RBC 3.22 4.20 - 5.40 05/03/2018 [facility] MCV 88.3 80.0 - 98.0 05/03/2018 [facility] Hct 28.5 36.0 - 48.0 05/03/2018 [facility] Hgb 9.5 12.0 - 16.0 05/03/2018 [facility] PANEL eGFR 45 04/30/2018 Result Comment: [...] should be multiplied by the estimated BMI. [facility] CHEM PANEL Glucose Lvl 138 70 - 99 04/30/2018 [facility] CHEM PANEL AST 16 0 - 37 04/30/2018 [facility] CHEM PANEL Bili Total 0.3 0.2 - [...] PANEL Globulin 4.3 2.7 - 4.2 04/30/2018 [facility] HEMATOLOGY PTT 20.5 22.9 - 35.8 04/30/2018 [facility] HEMATOLOGY PT 12.8 12.0 - 14.7 04/30/2018 [facility] HEMATOLOGY INR 0.98 0.85 - 1.17 04/30/2018 [facility] HEMATOLOGY Hct 38.1 36.0 - 48.0 04/30/2018 [facility] HEMATOLOGY MCHC 33.2 32.0 - 36.0 04/30/2018 [facility] HEMATOLOGY RDW 16.6 11.5 - 14.5 04/30/2018 [facility] HEMATOLOGY Platelet 383 133 - 450 04/30/2018 [facility] HEMATOLOGY MPV 8.0 7.4 - 10.4 04/30/2018 [facility] HEMATOLOGY Hgb 12.7 12.0 - 16.0 04/30/2018 [facility] HEMATOLOGY WBC 8.9 3.7 - 10.4 04/30/2018 [facility] HEMATOLOGY RBC 4.29 4.20 - 5.40 04/30/2018 [facility] HEMATOLOGY MCH 29.5 27.0 - 31.0 04/30/2018 [facility] HEMATOLOGY MCV 88.8 80.0 - 98.0 04/30/2018 [facility] Segs 59.9 45.0 - 75.0 04/30/2018 [facility] Monocytes 7.9 2.0 - 12.0 04/30/2018 [facility] Lymphocytes 27.2 20.0 - 40.0 04/30/2018 [facility] Basophils 1.0 0.0 - 1.0 04/30/2018 [facility] HEMATOLOGY Neutrophils # 5.3 1.5 - 8.1 04/30/2018 [facility] HEMATOLOGY Eosinophils 4.0 0.0 - 4.0 04/30/2018 [facility] Basophils # 0.1 0.0 - 0.2 04/30/2018 [facility] Eosinophils # 0.4 0.0 - 0.5 04/30/2018 [facility] Lymphocytes # 2.4 1.0 - 5.5 04/30/2018 [facility] Monocytes # 0.7 0.0 - 0.8 04/30/2018 [facility] Pathology Reports No Data Provided for This [...] in the right base. 3. Pacemaker. SL: [id number] 08/24/2018 [facility] Chest 1 v for Placement DX Pat ient Name: FELIPE PORTER : 1940; Age: 78 years y/o Female MR: [id number] Study: Chest 1 v for Placement DX [...] detailed above. No pneumothorax. SL: WR2-M 08/23/2018 [facility] Chest 1view DX Portable chest: The left subclavian pacemaker leads are in satisfactory position. The cardiac silhouette and pulmonary vasculature are within normal limits. There is mild subsegmental atelectasis in the right lung base, unchanged compared to 08/19/2018. The lungs and pleural spaces are otherwise clear. There is no other significant change. IMPRESSION: No acute radiographic abnormalities of the chest. [id number] 08/20/2018 [facility] Brain wo contrast CT Patient N panda: FELIPE PORTER : 1940; Age: 78 years y/o Female MR: [id number] Study: Brain wo contrast CT 08/20/2018 9:20 [...] of the brain should be considered. SL: [id number] 08/20/2018 [facility] Chest 2 views DX Patient Name: FELIPE PORTER : 1940; Age: 78 years y/o Female MR: [id number] Study: Chest 2 views DX 08/19/2018 3:00 [...] wall defibrillator. No pneumothorax. SL: WR2-M 08/19/2018 [facility] Chest 1 v for Placement DX Pat ient Name: FELIPE PORTER : 1940; Age: 78 years y/o Female MR: [id number] Study: Chest 1 v for Placement DX [...] detailed above. No pneumothorax. SL: WR2-M 08/18/2018 [facility] Consultation Notes No Data Provided for This Section Discharge Summaries No Data Provided for This Section History and Physicals No Data Provided for This Section Vital Signs Vital Sign Value Date Comments Source Heart Rate 78 08/24/2018 [facility] Temperature Oral (F) 97.9 F 08/24/2018 [facility] Systolic (mm Hg) 147 08/24/2018 [facility] Diastolic (mm Hg) 61 08/24/2018 [facility] Temperature Oral (F) 97.6 F 08/24/2018 [facility] Heart Rate 77 08/24/2018 [facility] Systolic (mm Hg) 111 08/24/2018 [facility] Diastolic (mm Hg) 69 08/24/2018 [facility] Temperature Oral (F) 98.0 F 08/24/2018 [facility] Heart Rate 79 08/24/2018 [facility] Systolic (mm Hg) 161 08/24/2018 [facility] Diastolic (mm Hg) 80 08/24/2018 [facility] Respitory Rate 16 08/24/2018 [facility] Respitory Rate 16 08/24/2018 [facility] Respitory Rate 16 08/24/2018 [facility] Weight 59.091 08/20/2018 [facility] Height 162.56 cm 08/20/2018 [facility] BMI Calculated 22.36 08/20/2018 [facility] Systolic (mm Hg) 144 08/19/2018 [facility] Diastolic (mm Hg) 82 08/19/2018 [facility] Heart Rate 79 08/19/2018 [facility] Respitory Rate 18 08/19/2018 [facility] Temperature Oral (F) 98.3 F 08/19/2018 [facility] Respitory Rate 17 08/19/2018 [facility] Heart Rate 80 08/19/2018 [facility] Temperature Oral (F) 98.0 F 08/19/2018 [facility] Systolic (mm Hg) 145 08/19/2018 [facility] Diastolic (mm Hg) 81 08/19/2018 [facility] Systolic (mm Hg) 145 08/19/2018 [facility] Diastolic (mm Hg) 86 08/19/2018 [facility] Respitory Rate 17 08/19/2018 [facility] Temperature Oral (F) 97.9 F 08/19/2018 [facility] Heart Rate 80 08/19/2018 [facility] Weight 59.091 08/15/2018 [facility] BMI Calculated 23.83 08/15/2018 [facility] Height 157.48 cm 08/15/2018 [facility] Systolic (mm Hg) 130 05/03/2018 [facility] Diastolic (mm Hg) 66 05/03/2018 [facility] Respitory Rate 18 05/03/2018 [facility] Heart Rate 86 05/03/2018 [facility] Temperature Oral (F) 98.2 F 05/03/2018 [facility] Heart Rate 99 05/03/2018 [facility] Temperature Oral (F) 98.2 F 05/03/2018 [facility] Respitory Rate 18 05/03/2018 [facility] Systolic (mm Hg) 115 05/03/2018 [facility] Diastolic (mm Hg) 73 05/03/2018 [facility] Heart Rate 78 05/03/2018 [facility] Systolic (mm Hg) 144 05/03/2018 [facility] Diastolic (mm Hg) 69 05/03/2018 [facility] Temperature Oral (F) 97.9 F 05/03/2018 [facility] Respitory Rate 18 05/03/2018 [facility] BMI Calculated 25.6 05/02/2018 [facility] Weight 63.5 05/02/2018 [facility] Height 157.48 cm 05/02/2018 [facility] BMI Calculated 25.2 04/30/2018 [facility] Weight 62.5 04/30/2018 [facility] Height 157.48 cm 04/30/2018 [facility] Encounters Location Location Details Encounter Type Encounter Number Reason For Visit Attending Provider ADM Date DC Date Status Source [facility] Inpatient [id number] Severo Butterfield 05/01/2018 05/04/2018 [facility] Bedded Outpatient [id number] Doug Baez 08/18/2018 08/19/2018 [facility] Inpatient [id number] Starr Castillo 08/20/2018 08/24/2018 [facility] [place] [facility] OP Therapy Patients [id number] Allan Knapp 07/03/2019 08/02/2019 [facility] [place] Procedures Procedure Code Date Perfomer Comments Source Procedure [id number] 06/30/2018 [facility] [place] Stent placement [id number] 04/01/2018 [facility] [place] Appendectomy [id number] [facility] [place] Cardiac catheterisation, left heart [id number] [facility] [place] Cataract surgery [id number] [facility] Cholecystectomy [id number] [facility] [place] Colonoscopy [id number] [facility] [place] 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 [id number] [facility] [place] Hysterectomy [id number] [facility] Rectal operation [id number] [facility] [place] Tonsillectomy [id number] [facility] [place] Assessment and Plan Assessment and Plan Date Source Extracted from:Title: Clinical Document Author: Starr Castillo MD Date: 08/24/18 Daily Progress Note [facility] Starr Castillo MD SUBJECTIVE: pt seen and [...] likely due to dehydration/medication effect *Non-ST elevation GA *Hypertension *Recent biventricular cardiac defibrillator placement *Past [...] Consultation Author: Severo Butterfield MD Date: 08/20/18 [facility] Consult Note Attending: Starr Castillo MD [...] PO Daily 08/20/18 minocycline 100 mg PO [id number] 08/21/18 pantoprazole 40 mg PO Before Br [...] likely due to dehydration/medication effect *Non-ST elevation GA *Hypertension *Recent biventricular cardiac defibrillator placement *Past [...] Physical Author: Severo Butterfield MD Date: 05/01/18 [facility] History and Physical Note Attending: Severo [...] order 11. Right lower extremity angiogram 12. JET WORKER of right iliac 13. Temporary pacemaker insertion 14. temporary pacemaker removal Procedure Description: Patient was brought to the cardiac catheterization laboratory in a fasting state. Bilateral groins and wrists were prepped and draped in a sterile fashion. Following vascular access was obtained using the modified seldinger technique under ultrasound and fluroscoping guidance as required. 1. 8 khmer sheath in L-SLUBBER HAND 2. 7 Fr sheath in the right CFV A non balloon tipped temporary pacemaker was inserted into the the right CFV and advanced under fluroscopic guidance to the RV and positioned to pace the RV septum. Capture was confirmed. Pacemaker was set at 60 bpm backup rate for the remainder of the procedure and removed at the end of PCI. 3. R-SLUBBER HAND arterial access was obtained us ing [...] then pulled the sheath back and performed JET WORKER of right iliac ostium with 7.0 x 80 mm balloon at 7 john. Baloon was removed and we were able to easily advance the 30 cm 14 Fr sheath past the ostium of the iliac. Once again a pigtail catheter was advanced into the LV over a 0.035" wire. 0.035" wire was exchanged for a 0.018" [place] Plus wire was inserted into the LV and Pigtail catheter was removed. Impella CP device was once again advandced over the wire into the LV under fluoroscopic guidance. Impella wire was removed and proper function and adequate LV support was confirmed. For PCI of the RCA, an 8Fr JR4 guide was used, which provided adequate support. Lesion was wired using a [employer] Prowater 0.014" wire, however we were unable to advance a [facility] microcatheter past the lesion. Prowater was then [...] clinic in 2 weeks after discharge. 05/04/2018 [facility] Plan of Care No Data Provided for This Section Social History Social History Date Source Social History TypeResponse Alcohol Past Substance Abuse Use: None. Smoking Status Former smoker; Exposure to Tobacco Smoke None; Exposure to Tobacco Smoke see note; Cigarette Smoking Last 365 Days No; Reg Smoking Cessation Counseling No; Other Tobacco Frequency sometimes at home- family smokes outdoors; entered on: 08/20/18 08/20/2018 [facility] Social History TypeResponse Alcohol Past Substance Abuse Use: None. Smoking Status Former smoker; Exposure to Tobacco Smoke None; Exposure to Tobacco Smoke see note; Cigarette Smoking Last 365 Days No; Reg Smoking Cessation Counseling No; Other Tobacco Frequency sometimes at home- family smokes outdoors; entered on: 08/20/18 08/20/2018 [facility] [place] Family History No Data Provided for This Section Advance Directives No Data Provided for This Section Functional Status No Data Provided for This Section
--- OUTSIDE RECORDS SUMMARY | 2019-08-24 19:24 | XMS REPORT ---
Author Author [facility] t Organization [facility] t Address [address] [place] [address] Phone Unavailable Care Team Providers Care Sample Box Maker Name Role Phone LATRELL KNAPP MD PCP Robert Knapp Attphys ANNIE FERRERA Attphys Unavailable Brigette CURRIE Attphys Unavailable Mougouris, Taso Attphys Jason Alonso Attphys [phone] Caro MONREALRD Attphys Unavailable Severo Butterfield Attphys LATRELL KNAPP Attphys Unavailable JOSE ROUSSEAU Attphys Unavailable Mougouris, Taso Admphys Severo Butterfield Admphys Payers Payer Name Policy Type Policy Number Effective Date Expiration Date [facility] Employees [id number] 2013 00:00:0 0 [facility] Medicare A & B [id number] 2005 00:00:00 [facility] Employees [id number] 2013 00:00:0 0 [facility] Medicare A & B [id number] 2005 00:00:00 [facility] Employees [id number] 2013 00:00:0 0 [facility] Medicare A & B [id number] 2005 00:00:00 C [facility] Employees [id number] 2013 00:00:0 0 [facility] Medicare A & B [id number] 2005 00:00:00 C [facility] Problems Condition Name Condition Details Condition Category Status Onset Date Resolution Date Last Treatment Date Treating Clinician Comments Source SEVERE LEG PAIN ALISON RE LEG PAIN Active 06/30/2019 [facility] [place] Diagnosis Active 2019-06-30 12:00:00 2019-07-03 09:27:00 [facility] [place] SYNCOPAL EPISODE SYNC OPAL EPISODE Active 08/20/2018 [facility] Diagnosis Active 2018-08-20 00:00:00 2018-08-20 10:30:00 [facility] SYNCOPE, ELEVATED TROPONIN SYN COPE, ELEVATED TROPONIN Active 08/20/2018 [facility] Diagnosis Active 2018-08-20 00:00:00 2018-08-22 22:48:00 [facility] BI-V ICD IMPLANT / AV NODE ABALTION BI-V ICD IMPLANT / AV NODE ABALTION Active 08/12/2018 [facility] Diagnosis Active 2018-08-12 00:00:00 2018-08-18 13:59:00 [facility] LT HEART CATH / POSS PCI /C IMPELLA LT HEART CATH / POSS PCI /C IMPELLA Active 04/29/2018 [facility] Diagnosis Active 2018-04-29 00:00:00 2018-05-02 11:32:00 [facility] Atrial fibrillation with rapid ventricular response At rial fibrillation with RVR Problem Active [facility] Dyspnea Dyspnea Problem Active [facility] Hypokalemia Hypokalemia Problem Active [facility] Hypomagnesemia Hypomagnesemia Problem Active [facility] Chronic systolic (congestive) heart failure Chronic systolic (congestive) heart failure 11/20/2018 [facility] Problem 2018-11-20 14:43:50 [facility] Ischemic cardiomyopathy Isch emic cardiomyopathy 11/20/2018 [facility] Problem 2018-11-20 14:43:50 [facility] Unspecified atrial fibrillation Unspecified atrial fibrillation 11/20/2018 [facility] Problem 2018-11-20 14:43:50 [facility] Coronary atherosclerosis due to calcified coronary les ion Coronary atherosclerosis due to calcified coronary lesion 11/20/2018 [facility] Problem 2018-11-20 14:43:50 [facility] Atherosclerosis of aorta Athe rosclerosis of aorta 11/20/2018 [facility] Problem 2018-11-20 14:43:50 [facility] Dysphagia, unspecified Dysp hagia, unspecified 11/20/2018 [facility] Problem 2018-11-20 14:43:50 [facility] Hypertensive heart disease with heart failure Hypertensive heart disease with heart failure 11/20/2018 [facility] Problem 2018-11-20 14:43:50 [facility] 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 11/20/2018 [facility] Problem 2018-11-20 14:43:50 [facility] Type 2 diabetes mellitus without complications Type 2 diabetes mellitus without complications 11/20/2018 [facility] Problem 2018-11-20 14:43:50 [facility] Paroxysmal atrial fibrillation Paroxysmal atrial fibrillation 11/20/2018 [facility] Problem 2018-11-20 14:43:50 [facility] Mixed hyperlipidemia Mixe d hyperlipidemia 11/20/2018 [facility] Problem 2018-11-20 14:43:50 [facility] Personal history of nicotine dependence Personal history of nicotine dependence 11/20/2018 [facility] Problem 2018-11-20 14:43:50 [facility] Atrial fibrillation (disorder) Atrial fibrillation (disorder) Active Problem 08/03/2019 [facility] [place] Problem Active 2019-08-03 21:54:24 [facility] [place] Congestive heart failure (disorder) Congestive heart failure (disorder) Active Problem 08/03/2019 [facility] [place] Problem Active 2019-08-03 21:54:24 [place], [facility] [place] Diabetes mellitus (disorder) D iabetes mellitus (disorder) Active Problem 08/03/2019 [facility] [place] Problem Active 2019-08-03 21:54:24 [facility], [facility] [place] Dyspnea on exertion (finding) Dyspnea on exertion (finding) Active Problem 08/03/2019 [facility] [place] Problem A ctive 2019-08-03 21:54:24 [facility] [place] Gastroesophageal reflux disease (disorder) Gastroesophageal reflux disease (disorder) Active Problem 08/03/2019 [facility] [place] Problem Active 2019-08-03 21:54:24 [facility] [place] Hypertensive disorder, systemic arterial (disorder) Hypertensive disorder, systemic arterial (disorder) Active Problem 08/03/2019 [facility] [place] Problem Active 2019-08-03 21:5 4:24 [facility] [place] Hypothyroidism (disorder) Hypo thyroidism (disorder) Active Problem 08/03/2019 [facility] [place] Problem Active 2019-08-03 21:54:24 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) Active Problem 08/03/2019 [facility] [place] Problem Active 2019-08-03 21:54:24 [facility] [place] CARDIAC CATHETERIZATION CAUSE ABN REACT/ CARDIAC CATHETERIZATION CAUSE ABN REACT/ Active [facility] Diagnosis Active 2018-05-02 11:32:00 [facility] SYNCOPE AND COLLAPSE SYNC OPE AND COLLAPSE Active [facility] Diagnosis Active 2018-08-22 22:48:00 [facility] ABNORMAL LEVELS OF OTHER SERUM ENZYMES ABNORMAL LEVELS OF OTHER SERUM ENZYMES Active [facility] Diagnosis Active 2018-08-22 22:48:00 [facility] Atherosclerotic heart disease of [place] coronary arter y without angina pectoris Atherosclerotic heart disease of [place] coronary artery without angina pectoris 05/07/2018 11/20/2018 [facility] Problem 2018-05-07 04:57:29 2018-11-20 14:43:50 2018-11-20 14:43:50 [facility] Allergies, Adverse Reactions, Alerts Allergy Name Allergy Type Status Severity Reaction(s) Onset Date Inacti ve Date Treating Clinician Comments Source codeine DA Active U 2019-07-07 00:00:[address] [facility] hydrocodone DA Active PR 2019-07-07 00:00:[address] [facility] cetirizine DA Active U 2019-07-07 00:00:[address] [facility] hydrocodone DA Active PR 2019-03-14 00:00:[address] [facility] cetirizine DA Active PR 2019-03-14 00:00:00 [facility] MEDICAL TAPE DA Active PR 2019-03-14 00:00:00 [facility] Penicillins DA Active U 2018-09-01 00:00:[address] [facility] Alprazolam Allergy to Substance Active Unknown 2018-08-07 00:00:00 [facility] Codeine Allergy to Substance Active Mild 2018-04-18 00:00:00 [facility] Cetirizine Allergy to Substance Active Mild 2018-04-18 00:00:00 [facility] PLASTIC TAPE Allergy to Substance Active Unknown RASH 2018-04-18 00:00: 00 [facility] cetirizine DA Active U 2014-07-05 00:00:00 [facility] MEDICAL TAPE DA Active U 2014-07-05 00:00:00 [facility] codeine DA Active U 2014-07-05 00:00:[address] [facility] CODEINE DA Active U 2008-03-16 00:00:[address] [facility] No Known Contrast Allergies DA Active U 2008-03-16 00:00: [address] [facility] No Known Food Allergies DA Active U 2008-03-16 00:00:[address] [facility] TAPE DA Active U 2008-03-16 00:00:[address] [facility] ULTRAM DA Active U 2008-03-16 00:00:[address] [facility] ZYRTEC DA Active U 2008-03-16 00:00:[address] [facility] codeine DA Active U 2007-12-19 00:00:[address] [facility] tramadol DA Active U 2007-12-19 00:00:[address] [facility] Adhesive Adhesive Active [facility] Tape Tape Active [facility] HYDROcodone HYDROcodone Active [facility] Social History Social Habit Start Date Stop Date Quantity Comments Source Social History 2018-08-20 22:41:21 2018-08-20 22:41:21 [facility] Medications Ordered Medication Name Filled Medication Name Start Date Stop Da te Current Medication? Ordering Clinician Indication Dosage Frequency Signature (SIG) Comments Components Source bumetanide 1 mg oral tablet 2018-08-24 20:45:00 Yes 0.5 mg = 0.5 tab, PO, BID, # 60 tab, 0 Refill(s), Pharmacy: [address] metoprolol 50 mg oral tablet, extended release 2018-08-24 20:45: 00 Yes 50 mg = 1 tab, PO, Daily, # 30 tab, 0 Refill(s), Pharmacy: [address] apixaban 2.5 mg oral tablet 2018-08-24 20:45:00 Yes 2.5 mg = 1 tab, PO, Q12H, # 60 tab, 0 Refill(s), Pharmacy: [address] Clonidine 2018-08-23 19:42:00 No Notes: (Sa me As: Catapres) [facility] Morphine 2018-08-23 16:54:00 No 2 mg, 1 mL, Route: IVP, Drug form: SOLN, Q4H, Dosing Weight 59.091, kg, PRN Pain Score 4-6, Start date: 08/23/18 11:54:00 CDT, Duration: 30 day, Stop date: 09/22/18 11:53:00 CDT [facility] Potassium Chloride 2018-08-23 16:47:00 No Notes: Infuse at a rate of 10 mEq/hr. (Same as: KCL) call [id number] after tubing med call [id number] after tubing med call [id number] after tubing med [facility] Eliquis 2018-08-23 14:00:00 No Notes: Same as: Eliquis [facility] Spironolactone 2018-08-23 14:00:00 No Notes: (Same As: Aldactone) [facility] Bumex 2018-08-23 14:00:00 No Notes: (Same A s: Bumex) [facility] Bumex 2018-08-23 02:46:00 No Notes: (Same A s: Bumex) [facility] Glucagon 2018-08-22 22:03:00 No 1 mg, Route: IM, Drug form: PDR/INJ, PRN, Dosing Weight 59.091, kg, PRN Blood Glucose Results, Start date: 08/22/18 17:03:00 CDT, Duration: 30 day, Stop date: 09/21/18 17:02:00 CDT [facility] Dextrose 50% Syringe 2018-08-22 22:03:00 No 25 gm, 50 mL, Route: IVP, Drug Form: INJ, Dosing Weight 59.091, kg, PRN, PRN Blood Glucose Results, Start date: 08/22/18 17:03:00 CDT, Duration: 30 day, Stop date: 09/21/18 17:02:00 CDT [facility] Insulin Lispro 2018-08-22 22:03:00 No Notes: (Same as: Humalog) Roll in palms of hands gently; Do not shake vigorously. WASTE: F/P - Black; E - Municipal Trash Bin Stable for 28 days at room temperature. Expires in days from Date [facility] metoprolol extended release 2018-08-22 14:00:00 No Notes: (Same as: Toprol XL) May split tab, but do not crush. [facility] Hydralazine 2018-08-22 09:32:00 No Notes: (Same as: Apresoline) Push over 5 minutes [facility] Aspirin 2018-08-21 17:30:00 No Notes: Take with food. [facility] Folic Acid 2018-08-21 14:00:00 No 0.4 mg, 1 tab, Route: PO, Drug form: TAB, Daily, Dosing Weight 59.091, kg, Start date: 08/21/18 9:00:00 CDT, Duration: 30 day, Stop date: 09/19/18 9:00:00 CDT [facility] Digoxin 2018-08-21 14:00:00 No Notes: Take on an Empty Stomach (Same as: Lanoxin) [facility] clopidogrel 2018-08-21 14:00:00 No Notes: ( Same As: Plavix) [facility] Amiodarone 2018-08-21 14:00:00 No Notes: (S panda as: Cordarone) [facility] pantoprazole 2018-08-21 12:30:00 No Notes: Tablet should not be chewed or crushed. (Same as: Protonix) [facility] Lisinopril 2018-08-21 02:00:00 No Notes: (Same as: Prinivil, Zestril) [facility] atorvastatin 2018-08-21 02:00:00 No Notes: (Same as: Lipitor) [facility] Trazodone 2018-08-21 00:55:00 No Notes: (Sa me As: Desyrel) [facility] Minocycline 2018-08-20 23:00:00 No Notes: (Same as:Minocin) No milk/antacids/iron. [facility] Docusate 2018-08-20 22:00:00 No Notes: (Same as: Colace) (Do Not Crush) [facility] metoprolol extended release 2018-08-20 22:00:00 No Notes: (Same as: Toprol XL) May split tab, but do not crush. [facility] gabapentin 300 MG Oral Capsule 2018-08-20 22:00:00 No Notes: (Same as: Neurontin) [facility] ferrous sulfate 2018-08-20 22:00:00 No Notes: Give with food. "Do Not Crush" [facility] Dextrose 50% Syringe 2018-08-20 20:36:00 No 12.5 gm, 25 mL, Route: IVP, Drug Form: INJ, Dosing Weight 59.091, kg, PRN, PRN Blood Glucose Results, Start date: 08/20/18 15:36:00 CDT, Duration: 30 day, Stop date: 09/19/18 15:35:00 CDT [facility] Glucagon 2018-08-20 20:36:00 No 1 mg, Route: IM, Drug form: PDR/INJ, PRN, Dosing Weight 59.091, kg, PRN Blood Glucose Results, Start date: 08/20/18 15:36:00 CDT, Duration: 30 day, Stop date: 09/19/18 15:35:00 CDT [facility] Ondansetron 2018-08-20 20:36:00 No Notes: (Same as: Boo) MEDICATION WASTE Product Size: 4 mg Product Wasted: ___ mg [facility] Acetaminophen 2018-08-20 20:36:00 No Notes: Do not exceed 4 gm/day. (Same as: Tylenol) [facility] Aspirin 2018-08-20 15:47:00 No 324 mg, Route: CHEW, Drug form: CHEWTAB, ONCE, Dosing Weight 59.091, kg, Priority: STAT, Start date: 08/20/18 10:47:00 CDT, Stop date: 08/20/18 10:47:00 CDT [facility] Saline Flush 0.9% 2018-08-20 14:20:00 No Notes: (Same as: BD Posiflush) [facility] Sodium Chloride 0.9% (Bolus) IV 2018-08-20 14:20:00 No 500 mL, Infuse Over: 1 hr, Route: IV, ONCE, Priority: STAT, Dosing Weight 59.091 kg, Start date: 08/20/18 9:20:00 CDT, Stop date: 08/20/18 9:20:00 CDT [facility] tramadol hydrochloride 50 MG Oral Tablet 2018-08-19 14:37:00 Yes 50 mg = 1 tab, PO, Q8H, PRN Pain Score 1-5, # 20 tab, 0 Refill(s), given to patient [facility] minocycline 100 mg oral capsule 2018-08-19 14:37:00 Yes 100 mg = 1 cap, PO, Q12H, X 7 day, # 14 cap, 0 Refill(s), given to patient [facility] 24 HR mirabegron 50 MG Extended Release Tablet [Myrbetriq] 2018-08-19 14:00:00 No 50 mg, 1 t ab, Route: PO, Drug form: ERTAB, Daily, Dosing Weight 59.091, kg, Start date: 08/19/18 9:00:00 CDT, Duration: 30 day, Stop date: 09/17/18 9:00:00 CDT [facility] Lisinopril 2018-08-19 14:00:00 No Notes: (Same as: Prinivil, Zestril) [facility] Folic Acid 2018-08-19 14:00:00 No 0.4 mg, 1 tab, Route: PO, Drug form: TAB, Daily, Dosing Weight 59.091, kg, Start date: 08/19/18 9:00:00 CDT, Duration: 30 day, Stop date: 09/17/18 9:00:00 CDT [facility] Digoxin 2018-08-19 14:00:00 No Notes: Take on an Empty Stomach (Same as: Lanoxin) [facility] clopidogrel 2018-08-19 14:00:00 No Notes: ( Same As: Plavix) [facility] vancomycin + Sodium Chloride 0.9% IV 250 mL 2018-08-19 03:15:00 No 2001 mg: infuse over 2.5 hours For adult patients only: Round to nearest 250 mg per Medical Staff approval MEDICATION WASTE Product Size: 1000 mg Product Wasted: ___ mg [facility] metoprolol extended release 2018-08-19 02:00:00 No Notes: (Same as: Toprol XL) May split tab, but do not crush. [facility] atorvastatin 2018-08-19 02:00:00 No Notes: (Same as: Lipitor) [facility] Spironolactone 2018-08-18 22:00:00 No Notes: (Same As: Aldactone) [facility] pantoprazole 2018-08-18 21:30:00 No Notes: Tablet should not be chewed or crushed. (Same as: Protonix) [facility] RN please bring home med MYRBETRIQ to Pharmacy for label 2018-08-18 20:00:00 No RUBINA sotelo bring home med MYRBETRIQ to Pharmacy for label, 1, Drug form: MISC, Route: MISC, TID, 08/18/18 15:00:00 CDT, Duration: 30 day, Stop date: 09/17/18 9:00:00 CDT [facility] gabapentin 300 MG Oral Capsule 2018-08-18 20:00:00 No Notes: (Same as: Neurontin) [facility] ferrous sulfate 2018-08-18 19:34:00 No Notes: Give with food. "Do Not Crush" [facility] *RN please update h/w/a in ad hoc* 2018-08-18 19:30:00 No *RN please update h/w/a in ad hoc*, reminder, Drug form: MISC, Route: MISC, Q30Min, 08/18/18 14:30:00 CDT, Duration: 30 day, Stop date: 09/17/18 14:00:00 CDT [facility] Trazodone Hydrochloride 50 MG Oral Tablet 2018-08-18 18:00:00 No Notes: (Same As: Desyrel) [facility] Morphine 2018-08-18 15:12:00 No 2 mg, 1 mL, Route: IVP, Drug form: SOLN, Q4H, Dosing Weight 59.091, kg, PRN Pain Score 4-6, Start date: 08/18/18 10:12:00 CDT, Duration: 30 day, Stop date: 09/17/18 10:11:00 CDT [facility] Acetaminophen 2018-08-18 15:12:00 No Notes: Do not exceed 4 gm/day. (Same as: Tylenol) [facility] Vancomycin 2018-08-18 15:12:00 No 1,000 mg, Route: IVPB, ONCE, Dosing Weight 59.091, kg, Time Critical Medication, Start date: 08/18/18 10:12:00 CDT, Stop date: 08/18/18 10:12:00 CDT, ABX Indication: Surgical Prophylaxis [facility] metoprolol succinate 50 mg oral capsule, extended release 2018-08-18 11:58:00 Yes 150 mg = 3 cap, PO, BID, 0 Refil l(s) [facility] Digoxin 0.125 MG Oral Tablet [Digox] 2018-08-15 19:27:00 Ye s 125 microgram = 1 tab, PO, Daily, 0 Refill(s) [facility] spironolactone 25 mg oral tablet 2018-08-15 19:27:00 Yes 25 mg = 1 tab, PO, BID, # 60 tab, 0 Refill(s) [facility] pantoprazole 40 mg oral enteric coated tablet 2018-08-15 19:27:0 0 Yes 40 mg = 1 tab, PO, Daily, 0 Refill(s) [facility] Trazodone Hydrochloride 50 MG Oral Tablet 2018-08-15 19:26:00 Yes 50 mg = 1 tab, PO, TID, 0 Refill(s) [facility] AMIODarone 200 mg oral tablet 2018-08-15 19:26:00 Yes 200 mg = 1 tab, PO, Daily, 0 Refill(s) [facility] ferrous sulfate 325 MG Oral Tablet 2018-08-15 19:26:00 Yes 325 mg = 1 tab, PO, TID, 0 Refill(s) [facility] lisinopril 40 mg oral tablet 2018-08-15 19:26:00 Yes 40 mg = 1 tab, PO, Daily, 0 Refill(s) [facility] 24 HR mirabegron 50 MG Extended Release Tablet [Myrbetriq] 2018-08-15 19:25:00 Yes 50 mg = 1 tab, PO, Daily, # 30 tab, 0 Refill(s) [facility] gabapentin 300 MG Oral Capsule 2018-08-15 19:25:00 Yes 300 mg = 1 cap, PO, TID, 0 Refill(s) [facility] multivitamin 2018-08-15 19:25:00 No Daily, 0 Refill(s) [facility] Ocuvite 2018-08-15 19:23:00 Yes PO, Daily, 0 Refill(s) [facility] Folic Acid 0.4 MG Oral Tablet 2018-08-15 19:23:00 Yes 0.4 mg = 1 tab, PO, Daily, # 100 tab, 0 Refill(s) [facility] gabapentin 2018-05-03 23:00:00 No Notes: (S panda as: Neurontin) [facility] clopidogrel 75 mg oral tablet 2018-05-03 18:25:00 Yes 75 mg = 1 tab, PO, Daily, # 90 tab, 3 Refill(s) [facility] mg oral tablet 2018-05-03 18:25:00 No 5 mg = 1 tab, PO, Q12H, # 180 tab, 3 Refill(s) [facility] metoprolol 100 mg oral tablet, extended release 2018-05-03 18:25 :00 No 100 mg = 1 tab, PO, BID, # 180 tab, 3 Refill(s) [facility] gabapentin 2018-05-03 18:10:00 No Notes: (S panda as: Neurontin) [facility] Protonix 2018-05-03 18:10:00 No Notes: Tablet should not be chewed or crushed. (Same as: Protonix) [facility] Potassium Chloride 2018-05-03 14:00:00 No Notes: Infuse at a rate of 10 mEq/hr. (Same as: KCL) [facility] Potassium Chloride 2018-05-03 13:51:00 No Notes: (Same as: K-Dur 20) "Do Not Crush" Give with food and full glass of water For patients unable to swallow tablet, dissolve in one half glass of water. Allow about 2 minutes for the tablets to disintegrate. Stir before giving to prepare slurry and administer. Please exclude Patient s with feeding tube less than 14 [place] (Dobhoff, J-tube etc) and pediatric and patients. [facility] Temazepam 2018-05-03 01:37:00 No Notes: (Sa me As: Restoril) [facility] metoprolol extended release 2018-05-02 15:00:00 No Notes: (Same as: Toprol XL) May split tab, but do not crush. [facility] Plavix 2018-05-02 15:00:00 No Notes: (Same As: Plavix) [facility] Lisinopril 2018-05-02 15:00:00 No Notes: (Same as: Prinivil, Zestril) [facility] Folic Acid 2018-05-02 15:00:00 No 0.8 mg, 2 tab, Route: PO, Drug form: TAB, Daily, Dosing Weight 62.5, kg, Start date: 05/02/18 9:00:00 WIRE SPLICER, Duration: 30 day, Stop date: 05/31/18 9:00:00 WIRE SPLICER [facility] Aspirin 81 MG Enteric Coated Tablet 2018-05-02 15:00:00 No Notes: Do not crush or chew. (Same As: Ecotrin) [facility] Acetaminophen 2018-05-02 14:31:00 No Notes: Do not exceed 4 gm/day. (Same as: Tylenol) [facility] Thyroxine 2018-05-02 12:30:00 No Notes: Take 1 hour before or 2 hours after meal; Enteral feeds may interefere with the absorption of this medication.(Same as:Levothroid, Synthroid) [facility] Eliquis 2018-05-02 03:00:00 No Notes: Same as: Eliquis [facility] atorvastatin 2018-05-02 03:00:00 No Notes: (Same as: Lipitor) [facility] pantoprazole 2018-05-01 22:30:00 No Notes: Tablet should not be chewed or crushed. (Same as: Protonix) [facility] Nitroglycerin 2018-05-01 17:32:00 No Notes: (Same as:Nitroquick, Nitrostat) "Do Not Crush" Sublingual tablet [facility] metoprolol 100 mg oral tablet, extended release 2018-05-01 13:21 :00 No 100 mg = 1 tab, PO, BID, 0 Refill(s) [facility] Folic Acid 2018-05-01 13:21:00 No 0 .8 mg, PO, Daily, 0 Refill(s) [facility] Fish Oil 500 mg oral capsule 2018-04-30 15:49:00 Yes 1,000 mg = 2 cap, PO, BID, 0 Refill(s) [facility] Esomeprazole 40 MG Enteric Coated Capsule 2018-04-30 15:49:00 No 40 mg = 1 cap, PO, Daily, # 30 cap, 0 Refill(s) [facility] lisinopril 5 mg oral tablet 2018-04-30 15:49:00 No 5 mg = 1 tab, PO, Daily, # 30 tab, 0 Refill(s) [facility] levothyroxine 50 mcg (0.05 mg) oral tablet 2018-04-30 15:49:00 No 50 microgram = 1 tab, PO, Daily, # 30 tab, 0 Refill(s) [facility] clopidogrel 75 mg oral tablet 2018-04-30 15:48:00 No 75 mg = 1 tab, PO, Daily, # 30 tab, 0 Refill(s) [facility] atorvastatin 40 mg oral tablet 2018-04-30 15:48:00 Yes 40 mg = 1 tab, PO, Bedtime, # 30 tab, 0 Refill(s) [facility] Aspirin 81 MG Enteric Coated Tablet 2018-04-30 15:48:00 No 81 mg = 1 tab, PO, Daily, # 90 tab, 3 Refill(s) [facility] Aspirin 81 MG Enteric Coated Tablet 2018-04-30 15:47:00 No 81 mg = 1 tab, PO, Daily, # 90 tab, 3 Refill(s) [facility] Amiodarone Hcl 200 Mg Tablet Amiodarone Hcl 200 Mg Tablet Y es 200 Daily [facility] Apixaban Apixaban Yes 2.5 Daily [facility] Atorvastatin Calcium (Lipitor) 40 Mg Tablet Atorvastat in Calcium (Lipitor) 40 Mg Tablet Yes 40 Every Evening [facility] Bumetanide 1 Mg Tablet Bumetanide 1 Mg Tablet Yes 1 Daily [facility] Clopidogrel Bisulfate (Plavix) 75 Mg Tablet Clopidogre l Bisulfate (Plavix) 75 Mg Tablet Yes 75 Daily [facility] Digoxin 125 Mcg Tablet Digoxin 125 Mcg Tablet Yes .125 Daily [facility] Folic Acid 0.8 Mg Tablet Folic Acid 0.8 Mg Tablet Yes 800 Every Evening [facility] Gabapentin 300 Mg Capsule Gabapentin 300 Mg Capsule Yes 300 Three Times A Day [facility] Levothyroxine Sodium (Levoxyl) 50 Mcg Tablet Levothyro xine Sodium (Levoxyl) 50 Mcg Tablet Yes 50 Every Morning [facility] Lisinopril 10 Mg Tablet Lisinopril 10 Mg Tablet Yes 40 Daily [facility] Metoprolol Succinate 50 Mg Tab.er.24h Metoprolol Succinate 50 Mg Ta b.er.24h Yes 50 Bedtime [facility] Minocycline Hcl 50 Mg Capsule Minocycline Hcl 50 Mg Capsule Yes 100 Daily [facility] Mirabegron (Myrbetriq) 25 Mg Tab.er.24h Mirabegron (Myrbetri q) 25 Mg Tab.er.24h Yes [address] [facility] Multivit With Calcium,Iron,Min (One-A-Day Women's) 1 E ach Tablet Multivit With Calcium,Iron,Min (One-A-Day Women's) 1 Each Tablet Yes 1 Daily [facility] Palmer-3 Fatty Acids (Fish Oil) 300 Mg Capsule Palmer-3 Fatty Acids (Fish Oil) 300 Mg Capsule Yes 1 Daily [facility] Pantoprazole Sodium (Protonix) 40 Mg Tablet. Pantopr azole Sodium (Protonix) 40 Mg Tablet. Yes 40 Daily [facility] Spironolactone 25 Mg Tablet Spironolactone 25 Mg Tablet Yes 25 Daily [facility] Tramadol Hcl (Ultram) 50 Mg Tablet Tramadol Hcl (Ultram) 50 Mg Tablet Yes 50 Every 8 Hours as needed for Moderate Pain (4-6) [facility] Trazodone Hcl 50 Mg Tablet Trazodone Hcl 50 Mg Tablet Yes 50 Three Times A Day [facility] Vit A,C & E/Lutein/Minerals (Ocuvite Tablet) 1 Each Ta blet Vit A,C & E/Lutein/Minerals (Ocuvite Tablet) 1 Each Tablet Yes 1 Daily [facility] Aspirin 81 Mg Tab.chew, Aspirin 81 Mg Tab.chew, 2018-08-25 00:00 :00 No [facility] Esomeprazole Magnesium (Nexium) 40 Mg Capsule., 1 Ca p Oral Esomeprazole Magnesium (Nexium) 40 Mg Capsule., 1 Cap Oral 2018-08-25 00:00:00 No 1 Daily [facility] Lisinopril/Hydrochlorothiazide (Lisinopr il-Hctz 20-12.5 Mg Tab) 1 Each Tablet, 2 Tab Oral Lisinopril/Hydrochlorothiazide (Lisinopr il-Hctz 20-12.5 Mg Tab) 1 Each Tablet, 2 Tab Oral 2018-08-25 00:00:00 No 2 Twic e A Day [facility] Methocarbamol 750 Mg Tablet, 750 Mg Oral Methocarbamol 750 Mg Tablet, 750 Mg Oral 2018-08-25 00:00:00 No 750 Bedtime [facility] Metoprolol Succinate 50 Mg Tab.er.24h, 100 Mg Oral Met oprolol Succinate 50 Mg Tab.er.24h, 100 Mg Oral 2018-08-25 00:00:00 No 100 Daily [facility] Naproxen , 500 Mg Oral Naproxen , 500 Mg Oral 00:00:00 No 500 Bedtime [facility] Nisoldipine 25.5 Mg Tab.er.24h, Oral Nisoldipine 25.5 Mg Tab.e r.24h, Oral 2018-08-25 00:00:00 No Bedtime [facility] Temazepam 15 Mg Capsule, 30 Mg Oral Temazepam 15 Mg Capsule, 30 Mg Oral 2018-08-25 00:00:00 No 30 Bedtime [facility] True Biotic , 1 Cap Oral True Biotic , 1 Cap Oral 2018-08-25 00: 00:00 No 1 Daily [facility] Acetaminophen (Tylenol Arthritis) 650 Mg Tablet.sa, 65 0 Mg Oral Acetaminophen (Tylenol Arthritis) 650 Mg Tablet.sa, 650 Mg Oral 2018-08-03 00:00:00 No 650 Bedtime [facility] Metformin Hcl 500 Mg Tablet, 500 Mg Oral Metformin Hcl 500 Mg Tablet, 500 Mg Oral 2017-04-23 00:00:00 No 500 Twice A Day [facility] Metoprolol Succinate 50 Mg Tab.er.24h, 100 Mg Oral Met oprolol Succinate 50 Mg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 Test Item Value Reference Range Interpretation Comments CERULOPLASMIN (test code = CER) 48.3 mg/dL 19.0-39.0 A Performed At: [facility] [address] [place], [place] [id number] CN MD Ph:[phone] [id number] 17:25:00* Test Item Value Reference Range Interpretation Comments GLUBED (test code = GLUBED) 118 mg/dL 74-106 H Performed by certified erector operator at [facility] [id number] 11:21:00* Test Item Value Reference Range Interpretation Comments GLUBED (test code = GLUBED) 212 mg/dL 74-106 H Performed by certified erector operator at [facility] KMSHSL0867-00-01 07:59:00* Test Item Value Reference Range Interpretation Comments GLUBED (test code = GLUBED) 101 mg/dL 74-106 N Performed by certified erector operator at [facility] COMPREHENSIVE METABOLIC [id number] 07:22:00* Test Item Value Reference Range Interpretation [...] due to change in reagent. COMPREHENSIVE METABOLIC [id number] 07:09:00* Test Item Value Reference Range Interpretation [...] TOTAL (test code = ALKP) IUnit/L 45-117 [id number] 20:05:00* Test Item Value Reference Range Interpretation Comments GLUBED (test code = GLUBED) 202 mg/dL 74-106 H Performed by certified erector operator at [facility] [id number] 20:05:00* Test Item Value Reference Range Interpretation Comments GLUBED (test code = GLUBED) 159 mg/dL 74-106 H Performed by certified erector operator at [facility] [id number] 20:05:00* Test Item Value Reference Range Interpretation Comments GLUBED (test code = GLUBED) 200 mg/dL 74-106 H Performed by certified erector operator at [facility] [id number] 20:04:00* Test Item Value Reference Range Interpretation Comments GLUBED (test code = GLUBED) 100 mg/dL 74-106 N Performed by certified erector operator at [facility] COMPREHENSIVE METABOLIC [id number] 07:49:00* Test Item Value Reference Range Interpretation [...] due to change in reagent. COMPREHENSIVE METABOLIC [id number] 07:31:00* Test Item Value Reference Range Interpretation [...] (test code = ALKP) IUnit/L 45-117 PROTHROMBIN [id number] 06:58:00* Test Item Value Reference Range Interpretation [...] (2.5-3.5) IS PATIENT ON ANTICOAGULANTS? NCBC W/AUTO [id number] 06:50:00* Test Item Value Reference Range Interpretation [...] DIFF REQUIRED (test code = MDIFF) NO [id number] 06:02:00* Test Item Value Reference Range Interpretation Comments GLUBED (test code = GLUBED) 160 mg/dL 74-106 H Performed by certified erector operator at [facility] [id number] 19:06:00* Test Item Value Reference Range Interpretation Comments GLUBED (test code = GLUBED) 157 mg/dL 74-106 H Performed by certified erector operator at [facility] [id number] 19:05:00* Test Item Value Reference Range Interpretation Comments GLUBED (test code = GLUBED) 222 mg/dL 74-106 H Performed by certified erector operator at [facility] [id number] 19:05:00* Test Item Value Reference Range Interpretation Comments GLUBED (test code = GLUBED) 117 mg/dL 74-106 H Performed by certified erector operator at [facility] [id number] 17:11:00* Test Item Value Reference Range Interpretation Comments GLUBED (test code = GLUBED) 201 mg/dL 74-106 H Performed by certified erector operator at [facility] CBC W/AUTO [id number] 07:12:00* Test Item Value Reference Range Interpretation [...] NRBC#) 0.00 K/mm3 0.0-0.1 N CBC W/AUTO [id number] 07:04:00* Test Item Value Reference Range Interpretation [...] code = BA#) K/mm3 0.0-0.2 COMPREHENSIVE METABOLIC [id number] 06:48:00* Test Item Value Reference Range Interpretation [...] CK) 50 IUnit/L 26-208 N COMPREHENSIVE METABOLIC [id number] 06:37:00* Test Item Value Reference Range Interpretation [...] (CK) (test code = CK) IUnit/L 26-208 [id number] 18:55:00* Test Item Value Reference Range Interpretation Comments GLUBED (test code = GLUBED) 180 mg/dL 74-106 H Performed by certified erector operator at [facility] [id number] 18:55:00* Test Item Value Reference Range Interpretation Comments GLUBED (test code = GLUBED) 185 mg/dL 74-106 H Performed by certified erector operator at [facility] [id number] 08:45:00* Test Item Value Reference Range Interpretation Comments GLUBED (test code = GLUBED) 96 mg/dL 74-106 N Performed by certified erector operator at [facility] COMPREHENSIVE METABOLIC [id number] 07:02:00* Test Item Value Reference Range Interpretation [...] range due to change in reagent. BILIRUBIN [id number] 07:02:00* Test Item Value Reference Range Interpretation Comments BILIRUBIN DIRECT (test code = BILD) 0.42 mg/dL 0.0-0.20 H COMPREHENSIVE METABOLIC [id number] 06:54:00* Test Item Value Reference Range Interpretation [...] (test code = ALKP) IUnit/L 45-117 BILIRUBIN [id number] 06:54:00* Test Item Value Reference Range Interpretation Comments BILIRUBIN DIRECT (test code = BILD) mg/dL 0.0-0.20 ACUTE HEPATITIS [id number] 06:09:00* Test Item Value Reference Range Interpretation [...] with a HCV Nucleic Acid Amplification test (243787).Performed At: [facility] [address] [place], [place] [id number] Vasyl Sun MD Ph:[phone] LCI4ML [id number] 21:28:00* Test Item Value Reference Range Interpretation Comments GLUBED (test code = GLUBED) 103 mg/dL 74-106 N [facility] RehabilitationNotified Nurse~ [id number] 16:17:00* Test Item Value Reference Range Interpretation Comments GLUBED (test code = GLUBED) 173 mg/dL 74-106 H Performed by certified erector operator at [facility] COMPREHENSIVE METABOLIC [id number] 06:32:00* Test Item Value Reference Range Interpretation [...] reference range due to change in reagent. [id number] 06:16:00* Test Item Value Reference Range Interpretation Comments GLUBED (test code = GLUBED) 118 mg/dL 74-106 H Performed by certified erector operator at [facility] COMPREHENSIVE METABOLIC [id number] 06:16:00* Test Item Value Reference Range Interpretation [...] = ALKP) IUnit/L 45-117 - US ABDOMEN [id number] 21:29:00 Name: MARCELLA PORTER [facility] : 1940 Age/S: 78 / F [address] [facility], [facility] Unit #: [id number] Loc: [place] [address] Phys: Latrell Knapp MD Acct: [id number] Dis Date: Status: ADM IN PHONE #: [phone] Exam Date: 03/19/2019 1723 FAX #: [phone] Reason: INCREASED LIVER ENZYMES EXAMS: CPT CODE: [id number] US ABDOMEN LTD 32867 REASON FOR EXAM: INCREASED LIVER ENZYMES EXAM [...] Signed by Oseas Vann on 2018 at 2129 Reported and signed by: Ramin Vann M.D. CC: Latrell Knapp MD Technologist: Cassie Galindo RDMS Trnmsb Date/Time: 2018 (2128) Abel.VTL Orig Print D/T: S: 03/19/2019 (2131 ) Probe: PAGE 1 Signed Report - US ABDOMEN [id number] 21:29:00 Name: MARCELLA PORTER [facility] : 1940 Age/S: 78 / F [address] Unit #: [id number] Loc: [place] [address] Phys: Rob Knapp MD Acct: [id number] Di s Date: Status: ADM IN PHONE #: [phone] Exam Date: 03/19/2019 1723 FAX #: [phone] Reason: INCREASED LIVER ENZYMES EXAMS: CPT CODE: [id number] [place] [address] REASON FOR EXAM: INCREASED LIVER ENZYMES EXAM [...] Cassie Galindo RDMS Trnscb Date/Time: 2018 (2128) Abel.VTL Orig Print D/T: S: 03/19/2019 (2131 ) Probe: PAGE 1 Signed Report CREATINE KINASE (CK)2019-03-19 20:59:00* Test Item Value Reference Range Interpretation Comments CREATINE KINASE (CK) (test code = CK) 48 IUnit/L 26-208 N [id number] 20:18:00* Test Item Value Reference Range Interpretation Comments GLUBED (test code = GLUBED) 158 mg/dL 74-106 H Performed by certified erector operator at [facility] [id number] 18:11:00* Test Item Value Reference Range Interpretation Comments GLUBED (test code = GLUBED) 134 mg/dL 74-106 H Performed by certified erector operator at [facility] [id number] 13:08:00* Test Item Value Reference Range Interpretation Comments GLUBED (test code = GLUBED) 183 mg/dL 74-106 H Performed by certified erector operator at [facility] COMPREHENSIVE METABOLIC [id number] 11:33:00* Test Item Value Reference Range Interpretation [...] due to change in reagent. COMPREHENSIVE METABOLIC [id number] 11:23:00* Test Item Value Reference Range Interpretation [...] code = ALKP) IUnit/L 45-117 CBC W/AUTO [id number] 10:53:00* Test Item Value Reference Range Interpretation [...] NRBC#) 0.00 K/mm3 0.0-0.1 N CBC W/AUTO [id number] 10:50:00* Test Item Value Reference Range Interpretation [...] # (test code = BA#) K/mm3 0.0-0.2 [id number] 07:10:00* Test Item Value Reference Range Interpretation Comments GLUBED (test code = GLUBED) 117 mg/dL 74-106 H [facility] RehabilitationNotified [facility]~ [id number] 21:24:00* Test Item Value Reference Range Interpretation Comments GLUBED (test code = GLUBED) 215 mg/dL 74-106 H Performed by certified erector operator at [facility] [id number] 16:55:00* Test Item Value Reference Range Interpretation Comments GLUBED (test code = GLUBED) 150 mg/dL 74-106 H Performed by certified erector operator at [facility] [id number] 16:55:00* Test Item Value Reference Range Interpretation Comments GLUBED (test code = GLUBED) 176 mg/dL 74-106 H Performed by certified erector operator at [facility] COMPREHENSIVE METABOLIC [id number] 08:23:00* Test Item Value Reference Range Interpretation [...] reference range due to change in reagent. [id number] 08:23:00* Test Item Value Reference Range Interpretation Comments MAGNESIUM (test code = MAG) 1.8 mg/dL 1.8-2.4 N COMPREHENSIVE METABOLIC [id number] 08:11:00* Test Item Value Reference Range Interpretation [...] TOTAL (test code = ALKP) IUnit/L 45-117 [id number] 08:11:00* Test Item Value Reference Range Interpretation Comments MAGNESIUM (test code = MAG) mg/dL 1.8-2.4 CBC W/AUTO [id number] 07:51:00* Test Item Value Reference Range Interpretation [...] code = NRBC#) 0.00 K/mm3 0.0-0.1 N [id number] 06:47:00* Test Item Value Reference Range Interpretation Comments GLUBED (test code = GLUBED) 111 mg/dL 74-106 H Performed by certified erector operator at [facility] - XR CHEST 1 [id number] 21:23:00 FAX: Latrell Jeffers MD [phone] [place]: St: ADM Name: MARCELLA VERNON [facility] : [birth year] Age/S: 78/F [address] [facility] Unit #: [id number] Loc: [place] [address] Phys: Latrell Knapp MD Acct: [id number] Dis Date: Status: ADM IN PHONE #: [phone] Exam Date: 03/17/20192058 FAX #: [phone] Reason: TEMP EXAMS: CPT CODE: [id number] XR CHEST 1 V 28263 EXAM: Chest x-ray, one view; INFORMATION: Status post fall; IMPRESSION: 1. N o significant change compared with a study from March 14, 2019; mild right basilar atelectatic changes. 2. Otherwise, no evidence of active c ardiopulmonary disease. 3. No evidence of osseous trauma. Location code: [facility] at 2123 Reported and signed by: Peewee Mendoza M.D. CC: Latrell Knapp MD Technologis t: Tarun Horne, RT(R Trnscrd Date/Time/By: 03/17/2019 (2122) : By: Pramod Orig Print D/T: S: 03/17/2019 (2125) PAGE 1 Signed Report - XR CHEST 1 [id number] 21:23:00 FAX: Latrell Jeffers MD [phone] [place]: St: ADM Name: MARCELLA VERNON [facility] : [birth year] Age/S: 78/F [address] [facility] Unit #: [id number] Loc: V.[address] [place] [address] Phys: Latrell Knapp MD Acct: [id number] Dis Date: Status: ADM IN PHONE #: [phone] Exam Date: 03/17/20192058 FAX #: [phone] Reason: TEMP EXAMS: CPT CODE: [id number] XR CHEST 1 V 76862 EXAM: Chest x-ray, one view; INFORMATION: Status post fall; IMPRESSION: 1. N o significant change compared with a study from March 14, 2019; mild right basilar atelectatic changes. 2. Otherwise, no evidence of active c ardiopulmonary disease. 3. No evidence of osseous trauma. Location code: [facility] at 2122 Reported and signed by: Peewee Mendoza M.D. CC: Latrell Knapp MD Technologis t: Tarun Horne, RT(R Trnscrd Date/Time/By: 03/17/2019 (2122) : By: Pramod Orig Print D/T: S: 03/17/2019 (2125) PAGE 1 Signed Report [id number] 21:02:00* Test Item Value Reference Range Interpretation Comments GLUBED (test code = GLUBED) 177 mg/dL 74-106 H [facility] RehabilitationNotified [facility]~ [id number] 16:28:00* Test Item Value Reference Range Interpretation Comments GLUBED (test code = GLUBED) 114 mg/dL 74-106 H Performed by certified erector operator at [facility] URINALYSIS [id number] 15:47:00* Test Item Value Reference Range Interpretation [...] = MUCU) FEW #/LPF FEW Urine Source? MllsqmYYUGPJ4111-09-98 12:55:00* Test Item Value Reference Range Interpretation Comments GLUBED (test code = GLUBED) 163 mg/dL 74-106 H Performed by certified erector operator at [facility] [id number] 06:25:00* Test Item Value Reference Range Interpretation Comments GLUBED (test code = GLUBED) 113 mg/dL 74-106 H Performed by certified erector operator at [facility] [id number] 21:00:00* Test Item Value Reference Range Interpretation Comments GLUBED (test code = GLUBED) 153 mg/dL 74-106 H Performed by certified erector operator at [facility] [id number] 17:14:00* Test Item Value Reference Range Interpretation Comments GLUBED (test code = GLUBED) 147 mg/dL 74-106 H Performed by certified erector operator at [facility] [id number] 11:51:00* Test Item Value Reference Range Interpretation Comments GLUBED (test code = GLUBED) 149 mg/dL 74-106 H Performed by certified erector operator at [facility] BASIC METABOLIC [id number] 06:53:00* Test Item Value Reference Range Interpretation [...] CA) 8.6 mg/dL 8.5-10.1 N BASIC METABOLIC [id number] 06:46:00* Test Item Value Reference Range Interpretation [...] CALCIUM (test code = CA) mg/dL 8.5-10.1 [id number] 06:09:00* Test Item Value Reference Range Interpretation Comments GLUBED (test code = GLUBED) 142 mg/dL 74-106 H Performed by certified erector operator at [facility] CBC W/AUTO [id number] 06:03:00* Test Item Value Reference Range Interpretation [...] DIFF REQUIRED (test code = MDIFF) NO [id number] 21:11:00* Test Item Value Reference Range Interpretation Comments GLUBED (test code = GLUBED) 141 mg/dL 74-106 H Performed by certified erector operator at [facility] [id number] 18:25:00* Test Item Value Reference Range Interpretation Comments GLUBED (test code = GLUBED) 172 mg/dL 74-106 H Performed by certified erector operator at [facility] - CT LOWER EXTRM W/O C [id number] 14:15:00 Name: MARCELLA PORTER [facility] : 1940 Age/S: 78 / F [address] [facility] Unit #: [id number] Loc: [place], [place] [address] Phys: Justyn Starkey MD Acct: [id number] Dis Date: Status: ADM IN PHONE #: [phone] Exam Date: 03/15/2019 1405 FAX #: [phone] Reason: RIGHT ANKLE PAIN, FELL AT HOME EXAMS: CPT CODE: [id number] [place] LOWER EXTRM W/[place] [address] HISTORY: Fall and pain. COMPARISON: X-ray from [...] (1415) t.SDR.TH4 Orig Print D/T: S: 03/15/2019 (7552) PAGE 1 Signed Report - CT LOWER EXTRM W/O C [id number] 14:15:00 Name: MARCELLA PORTER [facility] : 1940 Age/S: 78 / F [address] [facility] Unit #: [id number] Loc: [place] [address] Phys: Johanna Starkey am, MD Acct: [id number] Di s Date: Status: ADM IN PHONE #: [phone] Exam Date: 03/15/2019 1409 FAX #: Reason: RIGHT ANKLE PAIN, FELL AT HOME EXAMS: CPT CODE: [id number] [place] L[place] EX[place] M W/[place] [address] HISTORY: Fall and pain. COMPARISON: X-ray from [...] MD Technologist:María Elena Mccarty RT(R),CT CTDI: DLP: Brennens cb Date/Time: 03/15/2019 (1414) t.ELIELR.TH4 Orig Print D/T: S: 03/15/2019 (9092) PAGE 1 Signed Report [id number] 12:42:00* Test Item Value Reference Range Interpretation Comments GLUBED (test code = GLUBED) 180 mg/dL 74-106 H Performed by certified erector operator at [facility] [id number] 06:25:00* Test Item Value Reference Range Interpretation Comments GLUBED (test code = GLUBED) 121 mg/dL 74-106 H Performed by certified erector operator at [facility] BASIC METABOLIC [id number] 20:49:00* Test Item Value Reference Range Interpretation [...] CA) 8.9 mg/dL 8.5-10.1 N HEPATIC FUNCTION [id number] 20:49:00* Test Item Value Reference Range Interpretation [...] reference range due to change in reagent. [id number] 20:49:00* Test Item Value Reference Range Interpretation Comments LIPASE (test code = LIP) 146 U/L 73.0-393.0 N [id number] 20:49:00* Test Item Value Reference Range Interpretation Comments TROPONIN-I (test code = TROPI) <0.015 ng/mL 0-0.045 N PROTHROMBIN [id number] 20:44:00* Test Item Value Reference Range Interpretation [...] (2.5-3.5) IS PATIENT ON ANTICOAGULANTS? NTHROMBOPLASTIN TIME [id number] 20:44:00* Test Item Value Reference Range Interpretation Comments THROMBOPLASTIN TIME PARTIAL (test code = PTT) 32.1 seconds 25.0-36. 5 N IS PATIENT ON ANTICOAGULANTS? NBASIC METABOLIC [id number] 20:37:00* Test Item Value Reference Range Interpretation [...] code = CA) mg/dL 8.5-10.1 HEPATIC FUNCTION [id number] 20:37:00* Test Item Value Reference Range Interpretation [...] TOTAL (test code = ALKP) IUnit/L 45-117 [id number] 20:37:00* Test Item Value Reference Range Interpretation Comments LIPASE (test code = LIP) U/L 73.0-393.0 [id number] 20:37:00* Test Item Value Reference Range Interpretation Comments TROPONIN-I (test code = TROPI) ng/mL 0-0.045 CBC W/O [id number] 20:35:00* Test Item Value Reference Range Interpretation [...] MPV) 9.5 fL 6.7-11.0 N CBC W/O [id number] 20:32:00* Test Item Value Reference Range Interpretation [...] code = MPV) fL 6.7-11.0 - XR PELVIS 1/2 [id number] 20:11:00 FAX: Mary Grace Mir DO [place]: [address] St: ADM Name: MARCELLA VERNON [facility] : [birth year] Age/S: 78/F [address] [facility] Unit #: [id number] Loc: V[address] [place] [address] Phys: Mary Grace Mir DO Acct: [id number] Dis Date: Status: ADM IN PHONE #: [phone] Exam Date: 03/14/20191909 FAX #: [phone] Reason: PELVIC PAIN EXAMS: CPT CODE: [id number] XR PELVIS 1/2 VIEWS 00477 HISTORY: Pain. SHARON RISON: None available. Location: [...] CC: Mary Grace Mir DO Technologist: RT HARI(R) Trnscrd Date/Time/By: 03/14/2019 (2010) : By: [email or web address] Orig Print D/T: S: 03/14/2019 (2013) PAGE 1 Signed Report - XR ANKLE 3 + V BI 2019-03-14 20:11:00 FAX: Mary Grace Mir DO [place]: St: ADM Name: MARCELLA VERNON [facility] : [birth year] Age/S: 78/F [address] [facility] Unit #: [id number] Loc: [place] [address] Phys: Mary Grace Mir DO Acct: [id number] Dis Date: Status: ADM IN PHONE #: [phone] Exam Date: 03/14/20191909 FAX #: [phone] Reason: ANKLE PAIN EXAMS: CPT CODE: [id number] XR ANKLE 3 + [place] [address] HISTORY: Pain. SHARON RISON: None available. Location: [...] M.D. CC: Mary Grace Mir DO Technologist: ANGELA NORIEGA) Trnscrd Date/Time/By: 03/14/2019 (2010) : By: [email or web address] Orig Print D/T: S: 03/14/2019 (2013) PAGE 1 Signed Report - XR ANKLE 3 + V BI 2019-03-14 20:11:00 FAX: Mary Grace Mir DO [place]: B St: REG Name: MARCELLA VERNON [facility] : [birth year] Age/S: 78/F [address] [facility] Unit #: [id number] Loc: [place] [facility] [place] [address] Phys: Mary Grace Mir DO Acct: [id number] Dis Date: Status: REG ER PHONE #: [phone] Exam Date: 03/14/20191909 FAX #: [phone] Reason: ANKLE PAIN EXAMS: CPT CODE: [id number] XR ANKLE 3 + [place] [address] HISTORY: Pain. SHARON RISON: None available. Location: [...] 2019-03-14 20:11:00 FAX: Mary Grace Mir DO [place]: B St: REG Name: Javi CAGEMARCELLA CAMERON [facility] : [birth year] Age/S: 78/F [address] Unit #: [id number] Loc: [place] [address] Phys: Mary Grace Mir DO Acct: [id number] Dis Date: Status: REG ER PHONE #: [phone] Exam Date: 03/14/2019 191 FAX #: [phone] Reason: PELVIC PAIN EXAMS: CPT CODE: [id number] XR PELVIS 1/2 VIEWS 71988 HISTORY: Pain. SHARON RISON: None available. Location: [...] CC: Mary Grace Mir DO Technologist: RT HARI(R) Trnscrd Date/Time/By: 03/14/2019 (2010) : By: [email or web address] Orig Print D/T: S: 03/14/2019 (2013) PAGE 1 Signed Report - XR KNEE 3 V BI 2019-03-14 20:06:00 FAX: Mary Grace Mir DO [place]: B St: ADM Name: MARCELLA VERNON [facility] : [birth year] Age/S: 78/F [address] [facility] Unit #: [id number] Loc: [place] [address] Phys: Mary Grace Mir DO Acct: [id number] Dis Date: Status: ADM IN PHONE #: [phone] Exam Date: 03/14/2019 1910 FAX #: [phone] Reason: KNEE PAIN EXAMS: CPT CODE: [id number] XR KN[place] [address] [place] [address] HISTORY: Pain. SHARON RISON: None available. AP [...] CC: Mary Grace Mir DO Technologist: RT PATRICK(Kathy) Trnscrd Date/Time/By: 019 (2005) : By: [email or web address] Orig Print D/T: S: 03/14/2019 (2008) PAGE 1 Signed Report - XR TIBIA/FIBULA 2 V [id number] 20:06:00 FAX: Mary Grace Mir DO [place]: B St: ADM Name: MARCELLA VERNON [facility] : [birth year] Age/S: 78/F [address] Unit #: [id number] Loc: [place] [address] Phys: Mary Grace Mir DO Acct: [id number] Dis Date: Status: ADM IN PHONE #: [phone] Exam Date: 03/14/2019 191 FAX #: [phone] Reason: LEG PAIN EXAMS: CPT CODE: [id number] XR TIBIA/FIB[place] [address] HISTORY: Pain. SHARON RISON: None available. AP [...] PATRICK(R) Trnscrd Date/Time/By: 019 (2005) : By: [email or web address] Orig Print D/T: S: 03/14/2019 (2008) PAGE 1 Signed Report - XR KNEE 3 V [id number] 20:06:00 FAX: Mary Grace Mir DO [place]: B St: REG Name: MARCELLA VERNON [facility] : [birth year] Age/S: 78/F [address] Unit #: [id number] Loc: [place] [address] Phys: Mary Grace Mir DO Acct: [id number] Dis Date: Status: REG ER PHONE #: [phone] Exam Date: 03/14/20191909 FAX #: [phone] Reason: KNEE PAIN EXAMS: CPT CODE: [id number] XR KN[place] [address] HISTORY: Pain. SHARON RISON: None available. AP [...] Signed Report - XR TIBIA/FIBULA 2 V [id number] 20:06:00 FAX: Mary Grace Mir DO [place]: B St: REG Name: MARCELLA VERNON [facility] : [birth year] Age/S: 78/F [address] Unit #: [id number] Loc: [place] [address] Phys: Mary Grace Mir DO Acct: [id number] Dis Date: Status: REG ER PHONE #: [phone] Exam Date: 03/14/20191909 FAX #: [phone] Reason: LEG PAIN EXAMS: CPT CODE: [id number] XR TIBIA/FIB[place] [address] HISTORY: Pain. SHARON RISON: None available. AP [...] PATRICK(R) Trnscrd Date/Time/By: 019 (2005) : By: [email or web address] Orig Print D/T: S: 03/14/2019 (2008) PAGE 1 Signed Report - XR CHEST 1 [id number] 20:02:00 FAX: Mary Grace Mir DO [place]: B St: ADM Name: MARCELLA VERNON [facility] : [birth year] Age/S: 78/F [address] [facility] Unit #: [id number] Loc: V.[address] [place] [address] Phys: Mary Grace Mir DO Acct: [id number] Dis Date: Status: ADM IN PHONE #: [phone] Exam Date: 03/14/20191909 FAX #: [phone] Reason: CHEST PAIN EXAMS: CPT CODE: [id number] XR CHEST 1 V [address]4988 HISTORY: Fall. SHARON RISON: None available. Location: TH. No acute infilt rates, effusion or congestion is noted. No pneumothorax. 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 Cardiomegaly. Elevated right hemidiaphragm. IMPRESSION: No acute inf iltrates, effusion or congestion. at 2001 Reported and signed by: Brigette Somers M.D. CC: Mary Grace Mir DO Technologist: RT HARI(R) Trnscrd Date/Time/By: 03/14/2019 (2001) : By: [email or web address] O rig Print D/T: S: 03/14/2019 (2004) PAGE 1 Signed Report - XR CHEST 1 [id number] 20:02:00 FAX: Mary Grace Mir DO [place]: B St: REG Name: MARCELLA VERNON [facility] : [birth year] Age/S: 78/F [address] Unit #: [id number] Loc: [place] [address] Phys: Mary Grace Mir DO Acct: [id number] Dis Date: Status: REG ER PHONE #: [phone] Exam Date: 03/14/2019 1910 FAX #: [phone] Reason: CHEST PAIN EXAMS: CPT CODE: [id number] XR CHEST 1 V 02352 HISTORY: Fall. SHARON RISON: None available. Location: TH. No acute infilt rates, effusion or congestion is noted. No pneumothorax. 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 Cardiomegaly. Elevated right hemidiaphragm. IMPRESSION: No acute inf iltrates, effusion or congestion. at 2001 Reported and signed by: Brigette Somers M.D. CC: Mary Grace Mir DO Technologist: RT HARI(Kathy) Trnscrd Date/Time/By: 03/14/2019 (2001) : By: [email or web address] O rig Print D/T: S: 03/14/2019 (2004) PAGE 1 Signed Report - CT MAXIFAC W/O CNT 2019-03-14 19:02:00 Name: MARCELLA PORTER [facility] : 1940 Age/S: 78 / F [address] Unit #: [id number] Loc: [place] [address] Phys: Mary Grace Mir DO Acct: [id number] Dis Date: Status: ADM IN PHONE #: [phone] Exam Date: 03/14/2019 1850 FAX #: [phone] Reason: fall, injury EXAMS: CPT CODE: [id number] [place] MAXIFAC [place] [address] HISTORY: Fall and pain. COMPARISON: None available. [...] 1 Signed Report - CT MAXIFAC W/O [id number] 19:02:00 Name: MARCELLA PORTER [facility] : 1940 Age/S: 78 / F [address] [facility] Unit #: [id number] Loc: [place] [address] Phys: Mary Grace Mir DO Acct: [id number] Dis Date: Status: REG ER PHONE #: [phone] Exam Date: 03/14/2019 1850 FAX #: [phone] Reason: fall, injury EXAMS: CPT CODE: [id number] [place] MAXIFAC [place] [address] HISTORY: Fall and pain. COMPARISON: None available. [...] 1 Signed Report - CT C-SPINE W/O [id number] 18:58:00 Name: MARCELLA PORTER [facility] : 1940 Age/S: 78 / F [address] [facility] Unit #: [id number] Loc: [place] [address] Phys: Mary Grace Mir DO Acct: [id number] Dis Date: Status: ADM IN PHONE #: [phone] Exam Date: 03/14/2019 185 FAX #: [phone] Reason: Neck Pain EXAMS: CPT CODE: [id number] CT C-SPINE W/O CONTRAST 99002 HISTORY: Neck pain. COMPARISON: None available. Location: [...] d by Oseas Somers on 03/14/2019 at 1858 Reported an d signed by: Matthew Somers M.D. CC: Mary Grace Mir DO Technologist:Allison Butterfield RT(R)(CT) CTDI: D LP: Trnscb Date/Time: 03/14/2019 (1857) tSCOTTY.TH4 Orig Print D/T: S: 03/14/2019 (1900) PAGE 1 Signed R eport - CT C-SPINE W/O [id number] 18:58:00 Name: CHARLOTTEMARCELLA CAMERON [facility] : 1940 Age/S: 78 / F [address] [facility] Unit #: [id number] Loc: [place] [address] Phys: Corinne Mir DO Acct: [id number] Di s Date: Status: REG ER PHONE #: Exam Date: 03/14/20191849 FAX #: Reason: Neck Pain EXAMS: CPT CODE: [id number] CT C-SPINE W/ O CONTRAST 66940 HISTORY: Neck pain. COMPARISON: None available. Location: [...] d by Oseas Somers on 03/14/2019 at 1858 Reported an d signed by: Matthew Somers M.D. CC: Mary Grace Mir DO Technologist:Allison Butterfield RT(R)(CT) CTDI: D LP: Trnscb Date/Time: 03/14/2019 (1857) tPacoSDR.TH4 Orig Print D/T: S: 03/14/2019 (190) PAGE 1 Signed R eport - CT HEAD/BRAIN W/O [id number] 18:53:00 Name: MARCELLA PORTER [facility] : 1940 Age/S: 78 / F [address] [facility] Unit #: [id number] Loc: [place] [address] Phys: Corinne Mir DO Acct: [id number] Di s Date: Status: ADM IN PHONE #: Exam Date: 03/14/2019 185 FAX #: Reason: HEADACHE EXAMS: CPT CODE: [id number] CT HEAD/BRAIN W/O CONT 36894 HISTORY: Fall and pain. COMPARISON: None available. [...] 1 Signed Report (CONTINUED) Name: MARCELLA PORTER [facility] : 1940 Age/S: 78 / F [address] Unit #: [id number] Loc: [place] [address] P hys: Mary Grace Mir DO Acct: [id number] Dis Date: Status: ADM IN PHONE #: [phone] Exam Date: 03/14/2019 1850 F AX #: [phone] Reason: HEADACHE EXAMS: CPT CODE: [id number] CT HEAD/BRAIN W/O CONT 14798 <Continued> CC: Mary Grace Mir DO Technologist:Allison Butterfield RT(R)(CT) CTDI: DLP: Trnscb Date/Time: 03/14/2019 (1852) t.SDR.TH4 Orig Print D/T: S: 03/14/2019 (1855) PAGE 2 Signed Report - CT HEAD/BRAIN W/O [id number] 18:53:00 Name: MARCELLA PORTER [facility] : 1940 Age/S: 78 / F [address] Unit #: [id number] Loc: [place] [address] Phys: Corinne Mir DO Acct: [id number] Di s Date: Status: REG ER PHONE #: Exam Date: 03/14/2019 1850 FAX #: Reason: HEADACHE EXAMS: CPT CODE: [id number] CT HEAD/BRAIN W/O CONT 54750 HISTORY: Fall and pain. COMPARISON: None available. [...] at 1853 Reported and signed by: Matthew mlies M.D. PAGE 1 Signed Report (CONTINUED) Name: MARCELLA PORTER [facility] : 1940 Age/S: 78 / F [address] [facility] Unit #: [id number] Loc: [place] [address] P hys: Mary Grace Mir DO Acct: [id number] Dis Date: Status: REG ER PHONE #: [phone] Exam Date: 03/14/2019 1850 F AX #: [phone] Reason: HEADACHE EXAMS: CPT CODE: [id number] 2 CT HEAD/BRAIN W/O CONT 63391 <Continued> CC: Mary Grace Mir DO Technologist:Alilson Butterfield RT(R)(CT) CTDI: DLP: Trnscb Date/Time: 03/14/2019 (1852) t.SDR.TH4 Orig Print D/T: S: 03/14/2019 (1855) PAGE 2 Signed Report COMPREHENSIVE METABOLIC [id number] 09:55:00 * Test Item Value Reference Range [...] reference range due to change in reagent. [id number] 09:55:00* Test Item Value Reference Range Interpretation Comments MAGNESIUM (test code = MAG) 1.4 mg/dL 1.8-2.4 L COMPREHENSIVE METABOLIC [id number] 09:26:00* Test Item Value Reference Range Interpretation [...] TOTAL (test code = ALKP) IUnit/L 45-117 [id number] 09:26:00* Test Item Value Reference Range Interpretation Comments MAGNESIUM (test code = MAG) mg/dL 1.8-2.4 CBC W/AUTO [id number] 08:53:00* Test Item Value Reference Range Interpretation [...] (test code = MDIFF) NO CBC W/AUTO [id number] 08:51:00* Test Item Value Reference Range Interpretation [...] code = BA#) K/mm3 0.0-0.2 B-TYPE NATRIURETIC [id number] 05:19:00* Test Item Value Reference Range Interpretation Comments B-TYPE NATRIURETIC PEPTIDE (test code = BNP) 1371.35 pgram/mL 0-100 H COMPREHENSIVE METABOLIC [id number] 09:46:00* Test Item Value Reference Range Interpretation [...] reference range due to change in reagent. [id number] 09:46:00* Test Item Value Reference Range Interpretation Comments MAGNESIUM (test code = MAG) 1.4 mg/dL 1.8-2.4 L COMPREHENSIVE METABOLIC [id number] 09:18:00* Test Item Value Reference Range Interpretation [...] TOTAL (test code = ALKP) IUnit/L 45-117 [id number] 09:18:00* Test Item Value Reference Range Interpretation Comments MAGNESIUM (test code = MAG) mg/dL 1.8-2.4 CBC W/AUTO [id number] 08:58:00* Test Item Value Reference Range Interpretation [...] DIFF REQUIRED (test code = MDIFF) NO [id number] 17:44:00* Test Item Value Reference Range Interpretation Comments GLUBED (test code = GLUBED) 104 mg/dL 74-106 N Performed by certified erector operator at [facility] COMPREHENSIVE METABOLIC [id number] 11:24:00* Test Item Value Reference Range Interpretation Comments SODIUM (test code = NA) 141 mmol/L 136-145 RESU LT VERIFIED BY REPEAT ANALYSIS POTASSIUM (test code = K) 3.8 mmol/L 3.5-5.1 N CHLORIDE (test code = CL) 108.0 mmol/L 98-107 H CARBON DIOXIDE (test code = CO2) 27.0 mmol/L 21-32 N Previously reported result: 27.0 mmol/LEdited by: V.LAB.LDB on 19:1124 ANION GAP (test code = GAP) 9.8 [...] reference range due to change in reagent. [id number] 11:24:00* Test Item Value Reference Range Interpretation Comments MAGNESIUM (test code = MAG) 1.4 mg/dL 1.8-2.4 L COMPREHENSIVE METABOLIC [id number] 10:39:00* Test Item Value Reference Range Interpretation [...] reference range due to change in reagent. [id number] 10:39:00* Test Item Value Reference Range Interpretation Comments MAGNESIUM (test code = MAG) 1.4 mg/dL 1.8-2.4 L COMPREHENSIVE METABOLIC [id number] 10:25:00* Test Item Value Reference Range Interpretation [...] TOTAL (test code = ALKP) IUnit/L 45-117 [id number] 10:25:00* Test Item Value Reference Range Interpretation Comments MAGNESIUM (test code = MAG) mg/dL 1.8-2.4 CBC W/AUTO [id number] 09:15:00* Test Item Value Reference Range Interpretation [...] NRBC#) 0.00 K/mm3 0.0-0.1 N CBC W/AUTO [id number] 09:13:00* Test Item Value Reference Range Interpretation [...] # (test code = BA#) K/mm3 0.0-0.2 [id number] 18:36:00* Test Item Value Reference Range Interpretation Comments DIGOXIN (test code = DIG) 3.2 ng/mL 0.90-2.0 Rosy leon called to OER5410 by V.LAB.AA 09/01/18 1832Critical results verified and read back by Nurse? YNOTE: Spironolactone interference may cause a decrease inreported Digoxin results of 11-30 %. BASIC METABOLIC [id number] 18:00:00* Test Item Value Reference Range Interpretation [...] CA) 8.4 mg/dL 8.5-10.1 L HEPATIC FUNCTION [id number] 18:00:00* Test Item Value Reference Range Interpretation [...] reference range due to change in reagent. [id number] 18:00:00* Test Item Value Reference Range Interpretation Comments LIPASE (test code = LIP) 131 U/L 73.0-393.0 N THYROID STIMULATING [id number] 18:00:00* Test Item Value Reference Range Interpretation Comments THYROID STIMULATING HORMONE (test code = TSH) 7.740 uIU/mL 0.36-3.7 4 H TSH REFERENCE RANGES: EUTHYROID: 0.35 - 4.3 mIU/mL HYPO : > 5.5 mIU/mL HYPER : < 0.35 mIU/mL [id number] 18:00:00* Test Item Value Reference Range Interpretation Comments TROPONIN-I (test code = TROPI) <0.015 ng/mL 0-0.045 N BASIC METABOLIC [id number] 17:43:00* Test Item Value Reference Range Interpretation [...] code = CA) mg/dL 8.5-10.1 HEPATIC FUNCTION [id number] 17:43:00* Test Item Value Reference Range Interpretation [...] TOTAL (test code = ALKP) IUnit/L 45-117 [id number] 17:43:00* Test Item Value Reference Range Interpretation Comments LIPASE (test code = LIP) U/L 73.0-393.0 THYROID STIMULATING [id number] 17:43:00* Test Item Value Reference Range Interpretation Comments THYROID STIMULATING HORMONE (test code = TSH) uIU/mL 0.36-3.7 4 [id number] 17:43:00* Test Item Value Reference Range Interpretation Comments TROPONIN-I (test code = TROPI) ng/mL 0-0.045 URINALYSIS [id number] 17:20:00* Test Item Value Reference Range Interpretation [...] eviously reported result: 3-5 per HPFEdited by: [employer]LT on 09/01/18:055151 1719: WBC previously reported as: 3-5 per HPF UA RBC (test code = RBCU) 3-5 per HPF 0-5 A Pr eviously reported result: 6-10 per HPFEdited by: [employer]LT on 09/01/18:633113 1720: RBC previously reported as: 6-10 per HPF UA EPITHELIAL CELLS (test code = EPIU) FEW per HPF Few UA BACTERIA (test code = BACU) FEW per HPF NONE UA MUCUS (test code = MUCU) FEW per LPF NONE-FEW Urine Source? Clean Catch- XR CHEST 1 [id number] 17:09:00 FAX: Mary Grace Mir DO [place]: B St: REG FAX: Latrell Jeffers MD [phone] Name: MARCELLA JOHNSON [facility] : 1940 Age/S: 78/F [address] [facility] Unit #: [id number] Loc: [place] [address] Phys: Mary Grace Mir DO Acct: [id number] Dis Date: Status: REG ER PHONE #: [phone] Exam Date: 09/01/2018 1638 FAX #: [phone] Reason: near syncope EXAMS: CPT CODE: [id number] XR CHEST 1 V 31016 REASON FOR EXAM: near syncope Exam Order D ate: 09/01/2018 4:31 PM Ordering M.D.: Mary Grace Mir DO PROCEDURE: - XR [...] atelectasis. The upper lungs are clear. at 1708 Reported and signed by: Guero richards MD CC: Mary Grace Mir DO; Latrell Knapp MD Ashish hnologist: Eren GU(Kathy) Trnscrd Date/T sudha/By: 09/01/2018 (0920) : By: [email or web address] PAGE 1 Signed Report - XR CHEST 1 [id number] 17:09:00 FAX: Mary Grace Mir DO [place]: B St: DIS FAX: Y Latrell Knapp MD [phone] Name: MARCELLA PORTER [facility] : 1940 Age/S: 78/F [address] Unit #: [id number] Loc: [facility] [place] [address] Phys: Mary Grace Mir DO Acct: [id number] Dis Date: Status: DIS IN PHONE #: [phone] Exam Date: 09/01/2018 1638 FAX #: [phone] Reason: near syncope EXAMS: CPT CODE: [id number] XR CHEST 1 V 08210 REASON FOR EXAM: near syncope Exam Order [...] atelectasis. The upper lungs are clear. at 1700 Reported and signed by: Guero richards MD CC: Mary Grace Mir DO; Latrell Knapp MD Tech nologist: Eren Murillo RT(R) Trnscrd Date/Ti me/By: 09/01/2018 (8958) : By: [email or web address] Orig Print D/T: S: 09/01/2018 (9260) PAGE 1 Signed Report - XR CHEST 1 [id number] 17:09:00 FAX: Mary Grace Mir DO [place]: [address] St: DIS FAX: Latrell Jeffers MD [phone] Name: MARCELLA PORTER [facility] : 1940 Age/S: 78/F [address] Unit #: [id number] Loc: [place] [address] Phys: Mary Grace Mir DO Acct: [id number] Dis Date: Status: DIS IN PHONE #: [phone] Exam Date: 09/01/2018 1638 FAX #: [phone] Reason: near syncope EXAMS: CPT CODE: [id number] XR CHEST 1 V 93894 REASON FOR EXAM: near syncope Exam Order D ate: 09/01/2018 4:31 PM Ordering MLisset: Mary Grace Mir DO PROCEDURE: - XR [...] atelectasis. The upper lungs are clear. at 6227 Reported and signed by: Guero richards MD CC: Mary Grace Mir DO; Latrell Knapp MD Tech nologist: Eren LOREDOR) Trnscrd Date/Ti me/By: 09/01/2018 (1476) : By: [email or web address] Orig Print D/T: S: 09/01/2018 (7944) PAGE 1 Signed Report B-TYPE NATRIURETIC [id number] 17:03:00* Test Item Value Reference Range Interpretation Comments B-TYPE NATRIURETIC PEPTIDE (test code = BNP) 41.11 pgram/mL 0-100 N PROTHROMBIN [id number] 16:35:00* Test Item Value Reference Range Interpretation [...] (2.5-3.5) IS PATIENT ON ANTICOAGULANTS? NTHROMBOPLASTIN TIME [id number] 16:35:00* Test Item Value Reference Range Interpretation Comments THROMBOPLASTIN TIME PARTIAL (test code = PTT) 29.4 seconds 25.0-36. 5 N IS PATIENT ON ANTICOAGULANTS? NURINALYSIS [id number] 16:28:00* Test Item Value Reference Range Interpretation [...] per LPF NONE-FEW Urine Source? Clean CatchURINALYSIS [id number] 16:27:00* Test Item Value Reference Range Interpretation [...] HPF NONE Urine Source? Clean CatchCBC W/O [id number] 16:17:00* Test Item Value Reference Range Interpretation [...] MPV) 9.5 fL 6.7-11.0 N CBC W/O [id number] 16:16:00* Test Item Value Reference Range Interpretation [...] code = MPV) fL 6.7-11.0 CT BRAIN OK1958-30-79 10:21:00 [facility] [address] [address] Patient Name: MARCELLA PORTER MR #: [id number] : 1940 Age/Sex: 78/F Req #: [id number] Adm Physician: Ordered by: ANGELINA CURRIE MD Report #: [id number] Location: ER Room/Bed: Procedure: [id number] CT /CT BRAIN WO Exam Date: 08/25/18 [...] 1026 COPY TO: PIA CURRIE MD CHEM NVANT9097-42-59 11:47:001.6MH SoutheastELECTROLYTES 2018-08-23 11:47:0016.3M SvqtejejjBLPSMQLVLUYD1496-73-87 11:47:0083[facility] YPXQLLZVCUHO9261-57-67 11:47:008.9 AzabdawksOQVHCHHLKJYE0504-62-79 11:47:0019 ZovtfjagcMXRPCCUAOGOT2663-57-33 11:47:55059GM DfzyctshfSWYWRFZXFWPP5574-64-66 11:47:003.3MH GlbdkgbdfDDEOFNJCDGQH3936-18-80 11:47:000.70 [facility] AZHVSAZKXZRL6625-02-19 11:47:23749GT LmggxfodiVHAGZBMHKBGB3617-70-33 11:47:70183 IblaxzkzoESOAZQPDGELK2011-24-42 11:47:0014 XstjxfomwQTKYOBDERB3799-99-80 11:47:00* Test Item Value Reference Range Interpretation Comments [facility] (test code = MCH) 30.6 pg 27.0-31.0 FdbudgpipQNHYFEAFAU9076-23-43 11:47:0094.4 MztsdhtdlWQXCYVIFPN7024-77-59 11:47:0016.4 TaqlmgimySBYCXEAJMA6467-64-69 11:47:0032.4 [facility]HEMATOLOGY 2018-08-23 11:47:004.91 LthhbsubeKYWYKXDZKO7312-95-99 11:47:008.1M [facility] VUPYWMQFUW0791-34-31 11:47:0046.3M KzdspkenrDCVLXOIFQS2445-43-84 11:47:0015.0 LjhoanklePHTDPOPIDB8257-33-61 11:47:77247EB SpfxlzaxfCFFTKUURKK6728-93-79 11:47:007.9 IcnsqtveeNVWDLXWXUW3745-27-77 11:47:000.1M [facility]HEMATOLOGY 2018-08-23 11:47:005.6M RflwvutssXHXAQGOICW8118-56-33 11:47:000.7 [facility] IFFDOOUSMP3322-85-78 11:47:001.5 OtrvkyuvgAFCQZSWIBU1230-14-31 11:47:000.2M KmoenugziVQNIEMTGFI5228-93-94 11:47:002.7 EwlrblwokRIGJQUZWSO2081-44-34 11:47:000.7 OtoxifutmLMERAGHHNP1088-14-27 11:47:008.0 [facility] 2018-08-23 11:47:0069.6M WniwmzvpoEXUHTCEMTL0167-50-17 11:47:0019.0 [facility] CARDIAC IDAODTN6916-10-55 20:02:000.39 SoutheastURINE AND NAZVP6358-04-70 18:05:003 [facility] AND ZMAEA5486-36-81 18:05:001 [facility] AND EOHQM8463-76-54 18:05:00Negative (08/20/18 1:05 PM) [facility] AND STOOL 2018-08-20 18:05:005 [facility]URINE AND ACFQN1290-09-25 18:05:00Negative *NA*(08/20/18 1:05 PM)MH SoutheastURINE AND TWDEC0598-22-73 18:05:00Negative (08/20/18 1:05 PM) [facility] AND OYYZT4576-93-98 18:05:00Negative (08/20/18 1:05 PM)[facility] AND QGFKI0177-54-94 18:05:00* Test Item Value Reference Range Interpretation Comments UA pH (test code = UA pH) 5.0 1 5.0-8.0 MH SoutheastURINE AND WOQYH1706-07-83 18:05:00* Test Item Value Reference Range Interpretation Comments UA Spec Grav (test code = UA Spec Grav) 1.023 1 MH [facility]URINE AND HSBPF7377-26-09 18:05:00Yellow *NA*(08/20/18 1:05 PM)MH [facility]URINE AND VCGEG1662-62-60 18:05:00Slight *ABN*(08/20/18 1:05 PM) SoutheastCARDIAC QYVONKB7471-20-04 14:37:71879VW SoutheastCARDIAC ENZYMES 2018-08-20 14:37:000.64 SoutheastCHEM EFUVY3246-89-43 14:37:0063 [facility] CHEM QPFOH6638-66-73 14:37:003.1MH SoutheastCHEM POFEJ1707-10-65 14:37:006.9 SoutheastCHEM QEZAB3291-68-73 14:37:0029 SoutheastCHEM EHAPM5721-99-16 14:37:004.2MH SoutheastCHEM DCCMU3483-05-19 14:37:001.0 [facility]CHEM PANEL 2018-08-20 14:37:0028 SoutheastCHEM GCWWI4305-45-47 14:37:0078 SoutheastCHEM RDDVG4020-83-28 14:37:67892ER SoutheastCHEM WLVRG4526-81-09 14:37:0020 SoutheastCHEM CBBCF8606-46-69 14:37:008.6MH SoutheastCHEM KNMXI1674-20-97 14:37:71944WA SoutheastCHEM TFTXW5000-43-90 14:37:0016 [facility]CHEM PANEL 2018-08-20 14:37:000.88 SoutheastCHEM WUETV5882-43-59 14:37:84809XX [facility] CHEM FTPXU2723-41-08 14:37:003.8 [facility]CHEM WQVUQ0401-73-55 14:37:00* Test Item Value Reference Range Interpretation Comments A/G Ratio (test code = A/G Ratio) 0.8 1 0.7-1.6 SoutheastCHEM HMPCM4862-93-27 14:37:0015.2[facility] HospitalCHE[facility] ZLJYK6023-84-94 14:37:00* Test Item Value Reference Range Interpretation Comments B/C Ratio (test code = B/C Ratio) 18 1 6-25 OmtsjjzglBZZQEUJTRR0723-92-22 14:37:00* Test Item Value Reference Range Interpretation Comments INR (test code = INR) 1.04 1 0.85-1.17 [facility]ApmoadhfyLHTUFXXRGZ1136-09-24 14:37:00* Test Item Value Reference Range Interpretation Comments PT (test code = PT) 13.4 s 12.0-14.7 [facility] HospitalIdbswdmjoISWRVYWNBM9101-22-87 14:37:00* Test Item Value Reference Range Interpretation Comments [facility] (test code = MCH) 30.8 pg 27.0-31.0 [facility] HospitalGsbyzxnahKVZBAZCXTS1972-84-20 14:37:0043.5 EohfemntqAMHJULCXQH2971-48-38 14:37:0094.0 LndphqukjVAOONKLGTN5506-71-59 14:37:0016.[facility]HEMATOLOGY 2018-08-20 14:37:0032.8 RrbvgkffwWWJZSXUNDU9956-07-98 14:37:008.3M[facility] TFXDVAAFGY3578-48-71 14:37:17992NENorthampton State HospitalNstbzvzluDPMVPCQQHZ0651-32-66 14:37:008.3M[facility] HospitalEozdvpfsgKGYFMEYTYM5983-96-84 14:37:004.63[facility] HospitalGlwuuogdmZMITVOKQDX9502-80-19 14:37:[address] [place], [place] [address]UhvxqjiuaCSCPTDUUZA5467-41-49 14:37:00* Test Item Value Reference Range Interpretation Comments PTT (test code = PTT) 28.2 s 22.9-35.8 ZrqjllxhkWZDOOYVPRO3957-96-64 14:37:006.4[facility] HospitalSmucosulfUAPZLOTRNP1023-36-45 14:37:000.7[facility] HospitalZvznlmidcIEFZHMHRKZ7475-91-20 14:37:001.[facility]HEMATOLOGY 2018-08-20 14:37:000.1M WfdcvbldsOWUJCOQJRE1406-28-37 14:37:000.1[facility] ZAZKCGUOFA0783-48-09 14:37:000.8[facility] HospitalLtbppjltsXOESTNYLGI0314-09-71 14:37:008.0 RejmvmtomGKVEZFLDKH1068-85-40 14:37:001.6M DjzkeyvzeUWTWVOVYVL6795-37-96 14:37:0013.2M MakmvvfmrPTIWJKQDEB2892-23-66 14:37:0076.4[facility] RUHEARGWTQGP3194-91-13 19:30:0011.9 AwuawrlunMMVMIPMVDLNC6317-00-70 19:30:0064 SmxntzwjyKXCVPWWTAXOH5801-83-09 19:30:004.9 AcikzbvwmMEYZJPZPTHYM6345-71-16 19:30:56335NQ XqzmotjfgUETMSNNOVBWB0527-19-59 19:30:0024 [facility] IDGKKEUQODUE1394-99-68 19:30:009.1M KugkqnyacDRTAPIYTDCTL9228-38-04 19:30:87041 GeovfbibbSDRKLOXVBOMB2533-32-52 19:30:73868LD TjamxlhedGWKQWQDDZXBI2571-79-77 19:30:0017 EjtanewquNVMXSSDRDXXH5529-00-16 19:30:000.87 [facility]HEMATOLOGY 2018-08-15 19:30:000.1M NglffjgtfBOOMPNPBCD6100-55-30 19:30:000.9[facility] YJKCIDGUNB1869-59-50 19:30:001.6M BbkzjspikRBBZOCCUEX0921-19-65 19:30:004.2M ZfztokjenQICUDSJCPA0889-00-54 19:30:000.5 OdhffljbkRZFCETPRIG5559-63-23 19:30:001.7 YdgnnugdgRDRVPAVDBG8680-76-15 19:30:000.[facility]HEMATOLOGY 2018-08-15 19:30:0026.4 HakirogzsLVQBALKOYO0884-32-05 19:30:0063.9[facility] BSWHYHKXKW1233-82-55 19:30:007.2M CetnnufyeQIVPBRVITS8456-08-60 19:30:00* Test Item Value Reference Range Interpretation Comments INR (test code = INR) 1.52 1 0.85-1.17 EbeiaztpmXOZPNYBTEJ6093-22-01 19:30:00* Test Item Value Reference Range Interpretation Comments PT (test code = PT) 18.0 s 12.0-14.7 RzuxgizriRBMRDAOEQF4526-77-20 19:30:00* Test Item Value Reference Range Interpretation Comments PTT (test code = PTT) 29.8 s 22.9-35.8 MH YqnqktnbbOHQDFCFKTX2484-69-90 19:30:69940WKNorth[facility] State HospitalBjscyuaxfZTKGXZEENE3305-37-81 19:30:0032.3M[facility] HospitalUnbsqqmavWAGGEDZBPD0035-56-81 19:30:007.9 [facility]HEMATOLOGY 2018-08-15 19:30:0016.1M[facility] HospitalPsifzwxqmZTVNYPRFNM1391-05-50 19:30:00* Test Item Value Reference Range Interpretation Comments [facility] (test code = MCH) 30.6 pg 27.0-31.0 [facility] HospitalGqizejkztVSWUXJXOYY6383-82-47 19:30:006.6M[facility] HospitalLupmbvijxSGJXDRJHJC8258-44-38 19:30:005.02[facility] HospitalGnzjjomjiNZCZZCYOSY8143-59-76 19:30:0015.4 [facility] 2018-08-15 19:30:0094.9[facility] HospitalJveljhomaMQIWFVXEJR6364-62-68 19:30:0047.7[facility] CHEST SINGLE (PORTABLE)2018-08-03 11:18:[address] [address] Patient Name: MARCELLA PORTER MR #: [id number] : 1940 Age/Sex: 78/F Req #: [id number] Adm Physician: Ordered by: KOBY MONREAL MD Report #: [id number] Location: ER Room/Bed: Procedure: [id number] DX/C HEST SINGLE (PORTABLE) Exam Date: Exam [...] 11:21 AM Dictated By: KHOI CRUZ DO 20 Transcribed By: NAE on 08/03/18 112 COPY TO: KOBY MONREAL MD HWYXRABDCAVI2893-26-61 23:46:003.6MH SoutheastCHEM IIHIQ9174-46-50 10:59:0085 [facility]CHEM UMXBL8240-94-72 10:59:002.9 [facility]CHEM HZOLE8886-92-06 10:59:94861OZ SoutheastCHEM ZRSZE7192-11-99 10:59:000.68 SoutheastCHEM PANEL 2018-05-03 10:59:008.7 SoutheastCHEM EMDYM6213-86-14 10:59:0010.9 [facility] CHEM OLPKS1818-06-35 10:59:0015 SoutheastCHEM DUDDU2502-14-42 10:59:23824ED SoutheastCHEM GXQUX6462-70-74 10:59:52109OF SoutheastCHEM RBYFJ8929-84-64 10:59:0025 KjuchhsmcENJUCYUMHG5964-43-42 10:59:007.6MH [facility]HEMATOLOGY 2018-05-03 10:59:00* Test Item Value Reference Range Interpretation Comments [facility] (test code = MCH) 29.4 pg 27.0-31.0 VqqwsotdwWOIMIMTHRT0835-45-36 10:59:0033.3MH SzuwgjajyFOMZZCPKRP9198-54-06 10:59:0016.2M YwzklguuiRUYYDOYTBY0274-69-35 10:59:89180PC [facility]HEMATOLOGY 2018-05-03 10:59:007.2M NwwmdaovnJMEBCUBINR8358-65-67 10:59:003.22[facility] [place]2019-02-02 10:59:0088.3M LmczxxwzpPJMVHOVSDM2033-06-29 10:59:0028.5[facility] HospitalOqxbkrsdlIXMHLREZME4305-31-58 10:59:009.5 [facility]CHE[facility] BLCQY3881-85-03 15:41:0045 [facility]CHE[facility] DINYL8891-67-21 15:41:95595ZJ SoutheastCHEM PANEL 2018-04-30 15:41:0016 [facility]CHE[facility] KKHAB1962-32-77 15:41:000.3[facility] CHEM ZRTNS1179-78-96 15:41:0019[facility]2019-01-30 15:41:0071[facility]2019-01-30 15:41:008.8[facility]2019-01-30 15:41:0024[facility]2019-01-30 15:41:003.5[facility] PANEL 2018-04-30 15:41:001.17[facility]2019-01-30 15:41:0047[facility]2019-01-30 15:41:007.5[facility]2019-01-30 15:41:44182[facility]2019-01-30 15:41:003.2[facility] 15:41:88294QUTempleton Developmental Center2019-01-30 15:41:00* Test Item Value Reference Range Interpretation Comments B/C Ratio (test code = B/C Ratio) 40 1 6-25 [facility]2019-01-30 15:41:0013.5[facility]2019-01-30 15:41:00* Test Item Value Reference Range Interpretation Comments A/G Ratio (test code = A/G Ratio) 0.7 1 0.7-1.6 [facility]2019-01-30 15:41:004.3MG[facility] HospitalEwruvkukqRQAVGROVAM3186-22-50 15:41:00* Test Item Value Reference Range Interpretation Comments PTT (test code = PTT) 20.5 s 22.9-35.8 [facility]FbxvfwzelGJMYORDVCS3370-44-50 15:41:00* Test Item Value Reference Range Interpretation Comments PT (test code = PT) 12.8 s 12.0-14.7 AujcjwproMYNGLKCUUI4791-84-52 15:41:00* Test Item Value Reference Range Interpretation Comments INR (test code = INR) 0.98 1 0.85-1.17 FkhulzyosRXQRGZRPVB4011-66-25 15:41:0038.1M QzztavwjzVNEROONRZE2029-67-47 15:41:0033.2M LvzrngizsVLHUUQXLOZ6637-54-88 15:41:0016.6M [facility]HEMATOLOGY 2018-04-30 15:41:77917UW FavaujyppATBHTEXUGB9027-65-14 15:41:008.0[facility] FRJAYONGSW6492-22-34 15:41:0012.7 JuullzbocBPVMNYPBEY2694-64-17 15:41:008.9 VbcpogifwDLYVWDQCBB0951-37-78 15:41:004.29 OhchnateeQTMOJXFLPB5955-55-15 15:41:00* Test Item Value Reference Range Interpretation Comments [facility] (test code = MCH) 29.5 pg 27.0-31.0 MnkkwmunmKWNGEGEXQJ9855-20-77 15:41:0088.8 DsmwxbuovFBALDPOCTE9173-35-49 15:41:0059.9 KowmppglrEYXHPEMRXS4088-84-51 15:41:007.9 [facility] 2018-04-30 15:41:0027.2M BbqiammanIVXMFAAHAT7474-14-69 15:41:001.0[facility] SWNSKCNUKM8464-66-10 15:41:005.3M PamxbkqevXMNYTWWPCO4419-81-11 15:41:004.0 DjnzillvuKDKPHTVJXB6102-63-60 15:41:000.1M ZljzomlagWAISHFINAF7413-35-26 15:41:000.4[facility] HospitalBdgszcccdEPQSYTMHHC2957-56-73 15:41:002.4 [facility] 2018-04-30 15:41:000.7[facility] Hospital[facility] ([facility])2018-04-18 19:50:[address] [address] Patient Name: MARCELLA PORTER MR #: [id number] : 1940 Age/Sex: 77/F Req #: [id number] Adm Physician: Ordered by: BHAVANA MONTILLA NP Report #: [id number] Location: ER Room/Bed: Procedure: [id number] DX/C HEST SINGLE (PORTABLE) Exam Date: 04/18/18 Exam Time : 0 REPORT STATUS: Signed Exa mination: Single AP [...] NAE on 04/18/181950 COPY TO: BHAVANA MONTILLA CLEAT FEEDER SCR MAMM BILATERAL JUAN CAD NMVIUOM8753-52-69 08:06:27 - SCR MAMM BILATERAL JUAN CAD DIGITALBILATERAL DIGITAL SCREENING MAMMOGRAM 3D/2D WITH CAD: 02/05/2018CLINICAL: Asymptomatic. Digital breast tomosynthesis was performed in addition to routine CC and MLO views. Current mammographic images were evaluated by either a [employer] M-Vu or a Zen99 ImageChecker CAD (computer aided detection system). Comparison is made to exams dated 01/02/2017 mammogram, 12/30/2015 mammogram, and 12/28/2014 mammogram - [facility]-. The tissue of both breasts is predominantly fatty. There are benign vascular calcifications in both breasts. No suspicious mass, architectural distortion, malignant type calcification, or lymph node abnormality detected. Breast architecture is stable compared to prior exams.IMPRESSION: BENIGNThere is no mammographic nacho dence of malignancy. Resume annual screening mammography in one year. Oumar Menchaca M.D. ss/penrad:02/06/2018 08:06:27 Loan Originator: [employer], [facility]-FWletter sent: BIRADS 1-2 Normal Mammogr am BI-RADS: 2 Benign- CT HEAD/BRAIN W/O [id number] 13:30:00 Name: MARCELLA PORTER [facility] : 1940 Age/S: 76 / F [address] [facility] Unit #: [id number] Loc: [place] [address] Phys: Maco Brooks MD Acct: [id number] Di s Date: Status: UNK PHONE #: Exam Date: 09/26/2016 1304 FAX #: Reason: trauma EXAMS: CPT CODE: [id number] CT HEAD/BRAIN W/O CONT 19437 REASON FOR EXAM: trauma EXAM ORDER DATE: 09/26/2016 1:02 PM Ordering M .Robert.: Derek Brooks MD PROCEDURE: - CT [...] Reed CTDI: DLP: Trnscb Da te/Time: 09/26/2016 (1720) t.SDR.VTL Orig Print D/T: S: 0 09/26/2016 (7062) PAGE 1 Signed Report - CT HEAD/BRAIN W/O [id number] 13:30:00 Name: MARCELLA PORTER [facility] : 1940 Age/S: 76 / F [address] [facility] Unit #: [id number] Loc: [place] [address] Phys: Maco Brooks MD Acct: [id number] Di s Date: Status: UNK PHONE #: Exam Date: 09/26/2016 1309 FAX #: [phone] Reason: trauma EXAMS: CPT CODE: [id number] CT HEAD/BRAIN W/O CONT 85704 REASON FOR EXAM: trauma EXAM ORDER DATE: [...] Reed CTDI: DLP: Trnscb Da te/Time: 09/26/2016 (9510) t.SDR.VTL Orig Print D/T: S: 0 09/26/2016 (7092) PAGE 1 Signed Report - CT ABD PELVIS W/O [id number] 16:03:00 Name: MARCELLA PORTER [facility] : 1940 Age/S: 73 / F [address] [facility] Unit #: [id number] Loc: [place] [address] Phys: Narinder Ernst MD Acct: [id number] Di s Date: Status: UNK PHONE #: Exam Date: 07/05/2014 1540 FAX #: Reason: nausea, vomiting EXAMS: CPT CODE: [id number] CT ABD PELVIS W/O CONT 18505 HISTORY: Nausea and vomit ing. COMPARISON: None [...] 1 Signed Report (CONTINUED) Name: MARCELLA PORTER [facility] : 1940 Age/S: 73 / F [address] [facility] Unit #: [id number] Loc: [place] [address] Phys: Carlo Ernst MD Acct: [id number] Dis Date: Status: UNK PHONE #: [phone] Exam Date: 1540 FAX #: [phone] Reason: nausea, vomi ting EXAMS: CPT CODE: [id number] CT ABD PELVIS W/O CONT 93993 <Continued> IMPRESSION: No hydroureteronephrosis. No calyceal stones. Appendix is not visible but no inflammation. No bowel obstruction or colitis or diverticulitis or enteritis. Severe sigmoid diverticulosis. No free fluid or free air. at 1603 Reported and signed by: Matthew Somers M.D. CC: Technologist:ESTHER ARMENTA RT(R),CT CTDI: 14.52 DLP: 696.98 Trnscb Date/Time: 07/05/2014 (1603) t.ELIELR.TH4 Orig Print D/T: S: 07/05/2014 (9806) PAGE 2 Signed Report - CT ABD PELVIS W/O [id number] 16:03:00 Name: MARCELLA PORTER [facility] : 1940 Age/S: 73 / F [address] [facility] Unit #: [id number] Loc: [place] [address] Phys: Narinder Ernst MD Acct: [id number] Di s Date: Status: UNK PHONE #: Exam Date: 07/05/2014 1540 FAX #: Reason: nausea, vomiting EXAMS: CPT CODE: [id number] CT ABD PELVIS W/O CONT 43240 HISTORY: Nausea and vomit ing. COMPARISON: None [...] 1 Signed Report (CONTINUED) Name: MARCELLA PORTER [facility] : 1940 Age/S: 73 / F [address] [facility] Unit #: [id number] [place]: [place] [address] Phys: Carlo Ernst MD Acct: [id number] Dis Date: Status: UNK PHONE #: [phone] Exam Date: 1540 FAX #: [phone] Reason: nausea, vomi ting EXAMS: CPT CODE: [id number] CT ABD PELVIS W/O CONT 62397 <Continued> IMPRESSION: No hydroureteronephrosis. No calyceal stones. Appendix is not visible but no inflammation. No bowel obstruction or colitis or diverticulitis or enteritis. Severe sigmoid diverticulosis. No free fluid or free air. at 1603 Reported and signed by: Matthew Somers M.D. CC: Technologist:ESTHER ARMENTA RT(R),CT CTDI: 14.52 DLP: 696.98 Trnscb Date/Time: 07/05/2014 (1603) t.ELIELR.TH4 Orig Print D/T: S: 07/05/2014 (1606) PAGE 2 Signed Report - XR CHEST 1 [id number] 15:55:00 Name: MARCELLA PORTER [facility] : 1940 Age/S:73 /F [address] [facility] Unit#:[id number] Loc: [place] [address] Phys: Narinder Ernst MD Dis Date: PHONE #: [phone] Status: [facility] FAX #: [phone] Exam Date: 07/05/2014 Re ason: nausea, vomiting EXAMS: CPT CODE: [id number] XR CHEST 1 V 65825 HISTORY: Nausea and vomiting. COMPARISON: None available. No acute infiltrates, effusion or congestion. Dependent changes. Elevated right hemidiaphragm. Cardiac silhouette is mildly enlarged. Tortuous aorta. Dextro scoliosis. IMPRESSION: No acute infiltrates, e ffusion or congestion. at 1555 Reported and signed by: Matthew Somers M.D. CC: Technologist: ESTHER ARMENTA RT(R),CT Trnscrpt Data: 07/05/2014 (1555) t.SDR.TH4 Orig Print D/T: S: 07/05/2014 (8923) PAGE 1 Signed Report - XR CHEST 1 [id number] 15:55:00 Name: MARCELLA PORTER [facility] : 1940 Age/S:73 /F [address] [facility] Unit#:[id number] Loc: [place] [address] Phys: Narinder Ernst MD Dis Date: PHONE #: [phone] Status: [facility] FAX #: [phone] Exam Date: 07/05/2014 Re ason: nausea, vomiting EXAMS: CPT CODE: [id number] XR CHEST 1 V 40820 HISTORY: Nausea and vomiting. COMPARISON: None available. No acute infiltrates, effusion or congestion. Dependent changes. Elevated right hemidiaphragm. Cardiac silhouette is mildly enlarged. Tortuous aorta. Dextro scoliosis. IMPRESSION: No acute infiltrates, e ffusion or congestion. at 1555 Reported and signed by: Matthew Somers M.D. CC: Technologist: CHERYIAN,ESTHER, RT(R),CT Trnscrpt Data: 07/05/2014 (1555) HuTH4 Orig Print D/T: S: 07/05/2014 (4418) PAGE 1 Signed Report - XR RIBS UNI 2 V [id number] 23:32:00 Name: MARCELLA PORTER [facility] : 1940 Age/S:71 /F [address] [facility] Unit#:[id number] Loc: [place] [address] Phys: Jose Martin MD Dis Date: PHONE #: [phone] Status: UNK FAX #: [phone] Exam Date: 07/24/2011 Reason: TWISTED AND FELT POP/PAIN IN LEFT ANT LOWER RIB EXAMS: CPT CODE: [id number] XR RIBS UNI 2 [place] [address] TECHNIQUE: Left RIBS 4 views. IMPRESSION: 1. No rib fracture or destructive bone lesion. 2. Thoracolumbar scoliosis and degenerative changes. at 2332 Reported and signed by: Ming Calvo M.D. CC: Jose Martin MD Technologist: MARBELLA PRESLEY RT(R),RDMS,CT Trnscrpt Data: 07/24/2011 (2332) HuWAC1 Orig Print D/T: S: 07/24/2011 (1132) PAGE 1 Signed Report - XR RIBS UNI 2 V [id number] 23:32:00 Name: MARCELLA PORTER [facility] : 1940 Age/S:71 /F [address] [facility] Unit#:[id number] Loc: [place] [address] Phys: Jose Martin MD Dis Date: PHONE #: [phone] Status: UNK FAX #: [phone] Exam Date: 07/24/2011 Reason: TWISTED AND FELT POP/PAIN IN LEFT ANT LOWER RIB EXAMS: CPT CODE: [id number] XR RIBS UNI 2 [place] [address] TECHNIQUE: Left RIBS 4 views. IMPRESSION: 1. No rib fracture or destructive bone lesion. 2. Thoracolumbar scoliosis and degenerative changes. at 2332 Reported and signed by: Ming Calvo M.D. CC: Jose Martin MD Technologist: MARBELLA PRESLEY RT(R),RDMS,CT Trnscrpt Data: 07/24/2011 (2621) tDEREKWAC1 Orig Print D/T: S: 07/24/2011 (5710) PAGE 1 Signed Report - MRI UP T W/O CONT [id number] 10:12:00 FAX: Nancy Arredondo MD [phone] [place]: St: [facility] FAX: Latrell Jeffers MD [phone] Name: MARCELLA PORTER [facility] : 1940 Age/S: 70/F [address] [facility] Unit #: [id number] Loc: [place] [address] Phys: Nancy Virgen MD Acct: [id number] Dis Date: Status: [facility] PHONE #: [phone] Exam Date: 09/01/2010 0849 FAX #: [phone] Reason: ROTATOR CUFF TEAR EXAMS: CPT CODE: [id number] MRI UP JNT W/[place] [address] HISTORY: Rotator cuff tear. COMPARISON: None available. [...] Report ( CONTINUED) FAX: Nancy Arredondo MD [phone] [place]: St: [facility] FAX: Latrell Jeffers MD [phone] Name: MARCELLA PORTER [facility] : 1940 Age/S: 70/F [address] [facility] Unit #: [id number] Loc: [place] [address] Phys: Nancy Virgen MD Acct: [id number] Dis Date: Status: K PHONE #: [phone] Exam Date: 09/01/2010 0849 FAX #: [phone] Reason: ROTATOR CU FF TEAR EXAMS: CPT CODE: [id number] MRI [place] JNT W/[place] [address] <Continued> at 1015 Reported and signed by: Matthew Somers M.D. CC: Nancy Virgen MD; Latrell Knapp MD Technologist: JACKY MANUEL Date/Time/By: 09/01/2010 (1015) : By: [email or web address] Orig Print D/T: S: 09/01/2010 (1018) PAGE 2 Signed Report - [facility] [id number] 07:12:00 FAX: Latrell Jeffers MD [phone] [place]: St: UNK Name: MARCELLA VERNON [facility] : [birth year] Age/S: 69/F [address] [facility] Unit #: [id number] Loc: [place] [address] Phys: Latrell Knapp MD Acct: [id number] Dis Date: Status: UNK PHONE #: [phone] Exam Date: 09/13/2009 1017 FAX #: [phone] Reason: WWE EXAMS: CPT CODE: [id number] [place] [address] COMPARISON: 03/03/08, 09/05/05. FINDINGS: The parenchymal pattern is stable, mixed fibrofatty with scattered fibroglandular elements. There is no suspicious mass, anish gnant type microcalcification, secondary sign of malignancy in either fab[address], or significant interval change. IMPRESSION: No mammograph ic evidence of malignancy. RECOMMENDATION: Routine screening schedule. ACR - BI-RADS CATEGORY 2 - Benign findings [facility] Accreditation FDA Certifi ed [...] Signed Report (CONTINUED) FAX: Latrell Jeffers MD [phone] [place]: St: [facility] ------ Name: MARCELLA PORTER [facility] : 1940 Age/S: 69/F [address] [facility] Unit #: [id number] Loc: [place] [address] Phys: Latrell Lugo MD Acct: [id number] Dis Date: Status: UNK PHONE #: [phone] Exam Date: 09/13/2009 1017 FAX #: [phone] Reason: WWE EXA MS: CPT CODE: [id number] [place] [address] <Continued> CC: Latrell Knapp MD Technologist: TASNEEM MANRT(R)(M) Trnscrd Date/Time/By: 09/14/2009 (07) : By: [email or web address] Orig Print D/T: S: 09/14/2009 (07) PAGE 2 Signed Report - CT CHEST W W/O [id number] 17:15:00 Name: MARCELLA PORTER [facility] : 1940 Age/S: 67 / F [address] [facility] Unit #: [id number] Loc: [place] [address] Phys: Latrell Knapp MD Acct: [id number] Dis Date: Status: UNK PHONE #: [phone] Exam Date: 03/05/2008844 FAX #: [phone] Reason: CHEST PAIN EXAMS: CPT CODE: [id number] CT CHEST W W/O CONT 24140 FINDINGS: No pulmonary embolus or aortic dissection. Aortic ectasia, cardiomegaly, and coronary calcification. Nonspecific mildly enlarged 1.3 cm left tracheobronchial lymph node. Posterior bibasal dependent changes. No infiltrate, pneumothorax, or effusion. Degenerative changes in the spine. IMPRESSION: No pulmonary embolus or aortic dissection. ASCVD. at 1717 Reported and signed by: Ming Calvo M.D. CC: Latrell Knapp MD Technologist:AURELIA JARAMILLO [facility] CTDI: DLP: Trnscb Date/Time: 03/05/2008 (1717) [email or web address] Orig Print D/T: S: 03/05/2008 (8231) PAGE 1 Signed Report - MAMMOGM SCR [id number] 07:18:00 FAX: Latrell Jeffers MD [phone] [place]: St: UNK Name: MARCELLA [facility]ERN[facility] : [birth year] Age/S: 67/F Hitesh Moran Unit #: [id number] Loc: [place] [address] Phys: Latrell Knapp MD Acct: [id number] Dis Date: Status: UNK PHONE #: [phone] Exam Date: 03/03/2008 1420 FAX #: [phone] Reason: ROUTINE EXAMS: CPT CODE: [id number] [place] [id number] COMPARISON: 09/05/2005, 12/28/2002 FINDINGS: There is no suspicious mass, malignant type micro calcification, or secondary sign of malignancy in either breast, or signif icant interval change. IMPRESSION: No mammographic evidence o f malignancy. ACR - BI-RADS CATEGORY 2 - Benign findings [facility] Accreditation FDA Cer tified Board [...] = Needs Additional Imaging Evaluation. B. GEORGINA CORREA 1 = Negative. C. CATEGORY 2 = [...] Signed Report (CONTINUED) FAX: Latrell Jeffers MD [phone] [facility] s: Gold St: UNK Name: CHARLOTTEMARCELLA CAMER[facility] : 1940 Age/S: 67/F [address] [facility] Unit #: [id number] Loc: [place] [address] Ph ys: Latrell Knapp MD Acct: [id number] Dis Date: Status: UNK PHONE #: [phone] Exam Date: 03/03/2008 1420 FAX #: [phone] Reason: ROUTINE EXAMS: CPT CODE: [id number] [place] [address] <Continued> CC: Latrell Knapp MD Technologist: ANGELA SALDAÑA)(Gold) Trnscrd Date/Time/By: 03/05/2008 (718) : By: [email or web address] Orig Print D/T: S: 03/05/2008 (720) PAGE 2 Signed Report - DEXA BONE DENSITY AXIAL 2005-09-07 10:53:00 FAX: Álvaro Pichardo MD [phone] [place]: Gold St: UNK Name: Javi CAGEJULIAMARCELLAPAMELA AGUILERAZA [facility] : 07/20/18 [birth year] Age/S: 65/F Hitesh Moran Unit #: [id number] Loc: [place] [address] Phys: Álvaro Pichardo MD Acct: [id number] Dis Date: Status: UNK PHONE #: [phone] Exam Date: 09/05/2005 1551 FAX #: [phone] Reason: EXAMS: CPT CODE: [id number] DEXA BONE D[place]ITY AXIA L 34584 DICTATED: 09/07/05, 1053 HISTORY: OSTEOPOROSIS SCREENING DEXA BONE MINERAL DENSITY STUD Y, 09/05/05: CPT 45414 A bone density study of the lumbar spine an d hips was performed using dual energy x-ray absorptiometry on a [employer] unit. Results: BMD (g/cm2) T-Score Z-Score Lumbar Spine 1.247 -0 .6 1.8 (L2-L4) LEFT FEMORAL NE CK 0.975 -0.2 0.6 RIGHT FEMORAL NE CK 0.987 -0.1 0.7 IMPRESSION: THIS PLACES THE PATIENT IN THE NORMAL RANGE FOR HIPS AND LUMBAR SPI NE AND CONTINUED CLOSE INTERVAL FOLLOWUP IS RECOMMENDED. /[facility]/09973 Electronically Signed by Oseas Somers on 006 at 1407 Reported and signed by: Matthew Somers M.D. CC: Álvaro Pichardo MD Techn ologist: RT PIOTR(Kathy)(M) Trnscrd Date/Moi e/By: 09/07/2005 (8928) : By: Kayode/CHRISW/Orig Print D/T: S: 09/07/2005 (7228) PAGE 1 Signed Report - MAMMOGM [facility] [id number] 10:43:00 FAX: Álvaro Pichardo MD [phone] [place]: St: UNK Name: [facility]LL[facility] : 07/20/18 [birth year] Age/S: 65/F [address] [facility], [facility] Unit #: [id number] Loc: [facility] [address] Phys: Álvaro Pichardo MD Acct: [id number] Dis Date: Status: UNK PHONE #: [phone] Exam Date: 09/05/2005 1600 FAX #: [phone] Reason: ILATERAL EXAMS: CPT CODE: [id number] [place] [address] DICTATED: 09/06/05, 1043 BILATERAL FILM SCREEN MAMMOGRAPHY, [...] 10% Result Code: Bi-Rads 3 Follo w-up: //20852 at 1132 Reported and aisha d by: Matthew Somers M.D. CC: Álvaro Pichardo MD Technologist: RT PIOTR(Kathy)(M) Trnscrd Date/Time/By: 09/06/2005 (3068) : By: Ayesha.[facility] Orig Print D /T: (0800) S: 09/07/2005 (2051) PAGE 1 S igned Report - XR ANKLES 3 + [id number] 08:18:00 [place]: St: [facility] Name: MARCELLA VERNON [facility] : 07/20/18 41 Age/S: 64/F [address] [facility], [facility] Unit #: [id number] Loc: [facility] [address] Phys: Vu,Loc Yaron Acct: [id number] Dis Date: Status: UNK PHONE #: [phone] Exam Date: 07/22/2004 2345 FAX #: [phone] Reason: - RIGHT EXAMS: CPT CODE: [id number] XR ANKLES 3 + V 30424 [id number] XR FOOT 3 + V 85819 DICTATED: 07/24/04, 0818 CLINICAL HI STORY: INJURY. [...] OF THE BASE OF THE FIFTH METATARSAL. #50317 at 1318 Reported and signed by: Matthew Somers M.D. CC: Technologist: TARYN GONZALEZ [facility] Date/Time/By: 07/24/2004 (0931) : By: Ayde POWELLW Orig Print D/T: S: 07/24/2004 (8392) PAGE 1 Signed Report - XR FOOT 3 + [id number] 08:18:00 [place]: St: K Name: Javi CAGEMARCELLAPAMELA CAMERON [facility] : 07/20/18 [birth year] Age/S: 64/F [address] [facility] Unit #: [id number] Loc: [place] [address] Phys: Vu,Loc Yaron Acct: [id number] Dis Date: Status: UNK PHONE #: [phone] Exam Date: 07/22/2004 2345 FAX #: [phone] Reason: - RIGHT EXAMS: CPT CODE: [id number] XR ANKLES 3 + V 41923 [id number] XR FOOT 3 + V 49514 DICTATED: 07/24/04, 0818 CLINICAL HI STORY: INJURY. [...] OF THE BASE OF THE FIFTH METATARSAL. #15128 at 1318 Reported and signed by: Matthew Somers M.D. CC: Technologist: TARYN GONZALEZ Trnmsrd Date/Time/By: 07/24/2004 (0931) : By: Ayde YEBOAH Orig Print D/T: S: 07/24/2004 (8688) PAGE 1 Signed Report - [facility] [id number] 19:08:00 FAX: Latrell Jeffers MD [phone] [place]: St: [facility] Name: MARCELLA VERNON [facility] : 07/20/18 [birth year] Age/S: 62/F [address] [facility] Unit #: [id number] Loc: [place] [address] Phys: Latrell Knapp MD Acct: [id number] Dis Date: Status: UNK PHONE #: [phone] Exam Date: 12/28/2002 09 FAX #: [phone] Reason: ILATERAL EXAMS: CPT CODE: [id number] [place] [address] DICTATED: 12/29/02, 1908 H ISTORY: SCREENING. BILATERAL SCREENING MAMMOGRAM, 12/28/02 : CPT 11920 Comparison is made to exams dated 12/12/01, [...] Signed by Oseas Calvo on 12/30/2002 at 1347 Reported and signed by: Ming Calvo M.D. CC: Latrell Knapp MD Technologist: RT PIOTR(R)(M) Trnscrd Date/Time/By: 12/30/2002 (07) : By: Ayesha SHIN Orig Print D/T: S: 12/30/2002 (2977) PAGE 1 Signed Report - [facility] [id number] 15:44:00 FAX: Latrell Jeffers MD [phone] [place]: St: REINA Name: MARCELLA VERNON [facility] : 07/20/[birth year] Age/S: 61/F [address] [facility] Unit #: [id number] Loc: [place] [address] Phys: Latrell Knapp MD Acct: [id number] Dis Date: Status: UNK PHONE #: [phone] Exam Date: 12/12/2001 1105 FAX #: [phone] Reason: ILATERAL EXAMS: CPT CODE: [id number] [place] [address] DICTATED: 12/12/01, 1544 H ISTORY: ANNUAL MAMMOGRAM [...] exceed 10%. Result Code: Bi-Rads 3 Follow-up: 12 [facility] 469/RAL/pe at 0799 Reported and signed by: Nestor summers M.D. CC: Latrell Knapp MD chnologist: Alvin DOMINGUEZ(Kathy),(M) Trnscrd Date/ Time/By: 12/16/2001 (5917) : By: NADIR/Francisco Javier PAGE 1 Signed Report - XR FOOT 3 + [id number] 13:50:00 FAX: Jaya Bunn MD [phone] [place]: St: REINA Name: Javi YOUNGBLOODMarciaMARCELLA [facility] : 07/20/18 [birth year] Age/S: 61/F [address] [facility] Unit #: [id number] Loc: [place] [address] Phys: Jaya Yi MD Acct: [id number] Dis Date: Status: UNK PHONE #: [phone] Exam Date: 08/09/2001 1350 FAX #: [phone] Reason: L EXAMS: CPT CODE: [id number] XR ANKLES 3 + V 26168 [id number] XR FOOT 3 + V 26496 DICTATED: 08/09/01, 1058 HISTORY: PA IN. THREE [...] Trnscrd Date/Time /By: 08/10/2001 (0137) : By: Ayesha.GXE/brigette.SDR.TH4 PAGE 1 Signed Report - XR ANKLES 3 + [id number] 13:50:00 FAX: Jaya Bunn MD [phone] [place]: St: REINA Name: MARCELLA VERNON [facility] : [birth year]/20/[birth year] Age/S: 61/F [address] [facility] Unit #: [id number] Loc: [place] [address] Phys: Jaya Yi MD Acct: [id number] Dis Date: Status: UNK PHONE #: [phone] Exam Date: 08/09/2001 1350 FAX #: [phone] Reason: L EXAMS: CPT CODE: [id number] XR ANKLES 3 + V 50668 [id number] XR FOOT 3 + V 81667 DICTATED: 08/09/01, 1058 HISTORY: PA IN. THREE [...] 4 VIEWS 1998-07-25 18:05:00 FAX: Soren Hawkins [phone] [place]: St: REG Name: MARCELLA VERNON [facility] : 07/20/[birth year] Age/S: 58/F [address] [facility] Unit #: [id number] Loc: [place] [address] Phys: Soren Hawkins Acct: [id number] Dis Date: Status: REG CLI PHONE #: [phone] Exam Date: 07/25/1998 1805 FAX #: [phone] Reason: R - RIGHT EXAMS: CPT CODE: [id number] KNEE COMPLETE 3 OR 4 V IEWS [...] Trnscrd Date/Time /By: 07/26/1998 (1041) : By: [facility] PAGE [address] ABDOMEN/PELVIS W [place] [address] Patient Name: MARCELLA PORTER MR #: [id number] : 1940 Age/Sex: 76/F Req #: [id number] Adm Physician: Ordered by: LATRELL KNAPP MD Report #: [id number] Location: [facility] Room/Bed: Procedure: [id number] CT/CT ABDOMEN/PELVIS W Exam Da te: 04/30/17 [...] 13:39 Dictated By: TARYN DOS SANTOS MD 1339 COPY TO: MAYELIN KNAPP MD CHEST 2 VIEWS [place] [address] Patient Name: MARCELLA PORTER MR #: [id number] : 1940 Age/Sex: 76/F Req #: [id number] Adm Physician: Ordered by: JOSE ROUSSEAU MD Report #: [id number] Location: OR Room/Bed: Procedure: [id number] DX/CHEST 2 VIEWS Exam Date: 04/15/17 Exam [...] COPY TO: JOSE ROUSSEAU MD - MRI OR/KALEY/HELADIO LOVETT FAX: Mannie Tse MD [phone] [place]: B St: UNK [facility] [birth year] Age/S: 64/F [address] Unit #: [id number] Loc: [facility] [place] [address] Phys: Mannie Calero MD Acct: [id number] Dis Date: Status: UNK PHONE #: [phone] Exam Date: 01/10/2005 5279 FAX #: [phone] Reason: Y AND COMPLETE MRI QUESTIONNAIRE Report Has Been Amended EXAMS: CPT CODE: [id number] MRI BRAIN W WO CONT 7055 3 [id number] MRI OR/FCE/[place] [address] Addendum - 01/11/2005 SIGNED 01/12/2005 Exam [id number] MRI/MRIOFNKWWO was added to this report by Rose Dc on 01/11/2005 (4114) The original report was aisha d prior to the changes involving the above exam(s). I, the undersigned oscar diggs, have reviewed this report for accuracy and verify that this is cor rect. at 101 6 Reported and signed by: Nestor Joseph M.D. Created Date/Time/User: 01/11/2005 (7374) CHRIS Report DICTATED: 01/11/05, 0519 CLINICAL HISTORY: MRI [...] Signed Report (CONTINUED) FAX: Mannie Tse MD [place]: St: UNK Name: MARCELLA PORTER [facility] Margarito [place] : 1940 Age/S: 64/F [address] Unit #: [id number] Loc: [place] [address] Phys: Mannie Calero MD Acct: [id number] Dis Date: Status: UNK PHONE #: [phone] Exam Date: 01/10/2005 1735 FAX #: [phone] Reason: Y AND COMPLETE MRI QUESTIONNAIRE Report Has Been Amended EXAMS: CPT CODE: [id number] MRI BRAI N W WO CONT 49172 [id number] MRI [place]/FCE/[place] O [address] <Continued> periventricular regions on both sides, which [...] Report (CONTINUED) FAX: Y Mannie Calero MD [phone] [place]: St: [facility] Name: MARCELLA AWAN [facility] : 1940 e/S: 64/F [address] [facility] Unit #: [id number] Loc: [place] [address] Phys: Mannie Calero MD Acct: [id number] Dis Date: Status: UNK PHONE #: [phone] Ex am Date: 01/10/2005 4024 FAX #: [phone] Reaso n: Y AND COMPLETE MRI QUESTIONNAIRE Rep ort Has Been Amended EXAMS: CPT CODE: [id number] MRI BRAIN W WO CONT 12721 [id number] MRI OR/FCE/[place] [address] <Continued> 8TH NERVE BILATERALLY ARE INTACT WITHOUT ENHANCING TUMOR OR INFLAMMATORY PROCESS. THE VESTIBULE AND SEMICIRCULAR CANALS ALSO APPEAR INTACT. 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 RAL/saf/#625 at 1007 Reported and signed by: Nestor Joseph M.D. CC: Mannie Calero MD Technologist: Abe Newmanmspat Date/Time/By: 01/11/2005 (0621) : By: Genevieve/MILES.PAMELAW/[employer] Print D/T: S: 01/11/2005 (0323) PAGE 3 Signed Report - MRI BRAIN W WO CONT FAX: Y Mannie Calero MD [phone] [place]: St: [facility] Name: MARCELLA VERNON [facility] : [birth year]20/[birth year] Age/S: 64/F [address] [facility] Unit #: [id number] Loc: [place] [address] Phys: Mannie Calero MD Acct: [id number] Dis Date: Status: UNK PHONE #: [phone] Exam Date: 01/10/2005 173 FAX #: [phone] Reason: Y AND COMPLETE MRI QUESTIONNAIRE Report Has Been Amended EXAMS: CPT CODE: [id number] MRI BRAIN W WO CONT 7055 3 [id number] MRI [place]/FCE/[place] [address] Addendum - 01/11/2005 SIGNED 01/12/2005 Exam [id number] MRI/MRIOFNKWWO was added to this report by Rose Dc on 01/11/2005 (0133) The original report was aisha d prior to the changes involving the above exam(s). I, the undersigned oscar dgigs, have reviewed this report for accuracy and verify that this is cor rect. at 101 6 Reported and signed by: Nestor Joseph M.D. Created Date/Time/User: 01/11/2005 (1058) Ana RosaLUIS ANTONIOCE Report DICTATED: 01/11/05, 0519 CLINICAL HISTORY: MRI [...] Signed Report (CONTINUED) FAX: Mannie Tse MD [phone] [place]: St: [facility] Name: MARCELLA PORTER [facility] Margarito [place]den : 1940 Age/S: 64/F [address] Unit #: [id number] Loc: [place] [address] Phys: Mannie Calero MD Acct: [id number] Dis Date: Status: [facility] PHONE #: [phone] Exam Date: 01/10/2005 1735 FAX #: [phone] Reason: Y AND COMPLETE MRI QUESTIONNAIRE Report Has Been Amended EXAMS: CPT CODE: [id number] MRI BRAI N W WO CONT 60685 [id number] MRI [place]/FCE/NCK [place] O [address] <Continued> periventricular regions on both sides, which [...] Signed Report (CONTINUED) FAX: Mannie Tse MD [phone] [place]: St: UNK Name: MARCELLA AWAN [facility] : 1940 Ag e/S: 64/F [address] Unit #: [id number] Loc: [facility] [place] [address] Phys: Mannie Calero MD Acct: [id number] Dis Date: Status: UNK PHONE #: [phone] Ex am Date: 01/10/2005 2795 FAX #: [phone] Reaso n: Y AND COMPLETE MRI QUESTIONNAIRE Rep ort Has Been Amended EXAMS: CPT CODE: [id number] MRI BRAIN W WO CONT 62989 [id number] MRI [place]CE/[place] [address] <Continued> 8TH NERVE BILATERALLY ARE INTACT WITHOUT ENHANCING TUMOR OR INFLAMMATORY PROCESS. THE VESTIBULE AND SEMICIRCULAR CANALS ALSO APPEAR INTACT. 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 RAL/saf/#625 at 1009 Reported and signed by: Nestor Joseph M.D. CC: Mannie Calero MD Technologist: Abe Newman Date/Time/By: 01/11/2005 (0621) : By: Genevieve/YESSI/Yuan Print D/T: S: 01/11/2005 (1009) PAGE 3 Signed Report
[2019-08-24 20:18] LABS: LYMPHOCYTES % (MANUAL) 2 % (19-48); MONOCYTES % (MANUAL) 2 % (3.4-9.0); NEUTROPHILS % (MANUAL) 96 % (40-74); NUCLEATED RED BLOOD CELLS 1; PLATELET ESTIMATE ADEQUATE; PLATELET MORPHOLOGY COMMENT NORMAL; RBC MORPHOLOGY COMMENT NORMAL
[2019-08-24] MEDS: INSULIN REGULAR, HUMAN 3ML VL 100 UNIT in SODIUM CHLORIDE 0.9% 100 ML IV SCH ×2 (20:20)
[2019-08-24] MEDS ORDERED: BUMETANIDE1 MG PO (20:58)
[2019-08-24 21:00] VITALS: BP 127/60
--- NOTE | 2019-08-24 21:00 | Diagnostic Imaging Report ---
EXAM: CT Abdomen and Pelvis WITHOUT contrast INDICATION: Abdominal pain, hematuria COMPARISON: abdominal CT 06/23/2019 TECHNIQUE: Abdomen and pelvis were scanned utilizing a multidetector helical scanner from the lung base to the pubic symphysis without administration of IV contrast. Absence of intravenous contrast decreases sensitivity for detection of focal lesions and vascular pathology. Coronal and sagittal reformations were obtained. Routine protocol was performed. IV CONTRAST: None ORAL CONTRAST: None COMPLICATIONS: None RADIATION DOSE: Total DLP: ... mGy*cm Estimated effective dose: (DLP x 0.015 x size factor) mSv CTDIvol has been reviewed. It is below the limits set by the Radiation Protocol Committee (RPC). Dose modulation, iterative reconstruction, and/or weight based adjustment of the mA/kV was utilized to reduce the radiation dose to as low as reasonably achievable. FINDINGS: LINES/TUBES/DEVICES: Left chest wall cardiac device with leads in the right ventricle and atrium.. LOWER THORAX: Coronary stents. Bibasilar scarring/atelectasis. Aortic valve calcifications. Low right-sided heart volume. HEPATOBILIARY: No focal hepatic lesions. No biliary ductal dilation. GALLBLADDER: There are cholecystectomy clips. SPLEEN: No splenomegaly. PANCREAS: No focal masses or ductal dilatation. ADRENALS: No adrenal nodules KIDNEYS/URETERS: No hydronephrosis. No cystic or solid mass lesions. No stones. Renal parenchymal thinning. Trace bilateral perinephric fat stranding can be due to senescence. GI TRACT: No abnormal distention, wall thickening, or evidence of bowel obstruction. Extensive colonic diverticuli, worst in the sigmoid colon without discrete evidence of acute diverticulitis. Sigmoid myochosis coli. Appendix has been removed per history. PELVIC ORGANS/BLADDER: Hysterectomy. No adnexal masses. Urinary bladder is underdistended but otherwise unremarkable. LYMPH NODES: No lymphadenopathy. VESSELS: Extensive arterial calcific atherosclerotic disease. Flat IVC and low right sided heart volume. PERITONEUM / RETROPERITONEUM: No free air or fluid. BONES: Extensive degenerative changes.. Low bone mineral density. Healing nondisplaced fractures of several bilateral lower rib fractures and of left L2 transverse process. SOFT TISSUES: Bilateral gluteal subcutaneous calcified granulomas. IMPRESSION: 1. Extensive colonic diverticuli, worst in the sigmoid colon without discrete evidence of acute diverticulitis. 2. Healing nondisplaced fractures of several bilateral lower rib fractures and of left L2 transverse process. 3. Additional findings which are seen with dehydration. 4. Mild bilateral renal atrophy. Signed by: Oleksandr Navarro DO on 08/24/2019 8:56 PM
--- NOTE | 2019-08-24 21:02 | Diagnostic Imaging Report ---
X-ray right foot 3 views HISTORY: Pain. Rule out osteomyelitis COMPARISON: None available. FINDINGS: Bones: No acute displaced fracture. Osseous alignment is within normal limits. Joints: The joint spaces are well-maintained. Soft tissues: Mid/forefoot soft tissue swelling. Vascular calcifications. IMPRESSION: No acute radiographic osseous abnormality.Mid/forefoot soft tissue swelling. Signed by: Oleksandr Navarro DO on 08/24/2019 8:58 PM
[2019-08-24] MEDS ORDERED: GABAPENTIN300 MG PO (21:04)
--- NOTE | 2019-08-24 21:06 | Diagnostic Imaging Report ---
EXAMINATION: CHEST SINGLE (NOT PORTABLE) INDICATION: Abdominal pain, hematuria COMPARISON: Chest x-ray 08/03/[address] FINDINGS: TUBES and LINES: Left chest wall cardiac device with leads in the right atrium, right ventricle, and coronary sinus. LUNGS: Low lung volumes. Subtle bibasilar haziness. No consolidations. PLEURA: No pleural effusion or pneumothorax. HEART AND MEDIASTINUM: The cardiomediastinal silhouette is unremarkable. Aortic calcifications. BONES AND SOFT TISSUES: No acute osseous lesion. Soft tissues are unremarkable. Partially visualized cervical fixation hardware. T12 vertebral body kyphoplasty cement. UPPER ABDOMEN: No free air under the diaphragm. Cholecystectomy clips. IMPRESSION: Low lung volumes with bibasilar atelectasis/scarring. Signed by: Oleksandr Navarro DO on 08/24/2019 9:02 PM
[2019-08-24] MEDS ORDERED: folic acid PO (21:07)
[2019-08-24] MEDS ORDERED: FERROUS SULFAT325 MG PO (21:07)
[2019-08-24] MEDS ORDERED: HAIR, SKIN & N1 EACH PO (21:09)
[2019-08-24 21:42] VITALS: BP 132/65
[2019-08-24 21:45] VITALS: BP 132/65
[2019-08-24 22:00] VITALS: BP 112/67
[2019-08-24] MEDS: PIPERACILLIN/TAZO 2.25 GM 50 ML IV SCH (22:09)
[2019-08-24 23:00] VITALS: BP 115/52
--- NOTE | 2019-08-24 23:08 | Consultation ---
DATE OF CONSULTATION: Pulmonary and Critical Care Consultation HISTORY OF PRESENT ILLNESS: The patient is a 79-year-old woman with a history of diabetes and atrial fibrillation. She has a history of hypertension and chronic heart failure. She has been having some problems with her foot and recently received some prednisone for gout. She has had more problems with her sugars as a result and has noticed increased confusion. She came to the emergency department and was noted to have hyperglycemia and diabetic ketoacidosis. She is now received several liters of fluid and is on an insulin drip. She also had a CT scan of the abdomen and pelvis that showed some healing bilateral rib fractures and a healing fracture of the transverse process at L2. Upon further history, the daughter reports that she has had several falls. PAST SURGICAL HISTORY: 1. Right coronary artery atherectomy and stent placement several years ago. 2. Colonoscopy with diverticulosis in 2016. PAST MEDICAL HISTORY: 1. Atrial fibrillation. 2. Chronic heart failure. 3. Diabetes. 4. Hypertension. 5. Hypothyroidism. ALLERGIES: THE PATIENT IS ALLERGIC TO CODEINE WELL ZYRTEC AND ALPRAZOLAM. SOCIAL HISTORY: The patient is not a smoker or drinker. FAMILY HISTORY: Noncontributory. REVIEW OF SYSTEMS: The patient is afebrile. She has no headache or neck pain. She is not complaining of any chest pain. She has some mild dyspnea. There is no abdominal pain. She denies nausea or vomiting. She does have foot pain and tenderness on the left foot. PHYSICAL EXAMINATION: VITAL SIGNS: Blood pressure is 119/81, saturation is 94% and the pulse is 99. HEENT: Shows no facial swelling or erythema. LYMPHATIC: Shows no submandibular, cervical, or supraclavicular adenopathy. CARDIAC: Reveals regular rate and rhythm with normal S1 and S2. LUNGS: Auscultation of lungs reveals clear breath sounds bilaterally. There is no wheezing. ABDOMEN: Soft, nontender. There is no rebound or guarding. EXTREMITIES: Show no leg edema or calf tenderness. There is some tenderness and fluctuance on the dorsal surface of the proximal area of the great toe. She also has a stasis ulcer along the lateral malleolus and small heel ulcer. LABORATORY DATA: White blood cell count is 12.1 and hemoglobin is 12.1. The platelet count is 347. The BUN to creatinine ratio is 81 to 2.92. Sodium is 125 and the potassium is 3.2. The carbon dioxide is 19 with chloride of 81 with an anion gap of 25. Blood sugar . Albumin is 1.9 and the BNP is 306. RADIOGRAPHIC DATA: 1. Foot x-ray shows some soft tissue swelling in the mid forefoot. There are no fractures. 2. Chest x-ray shows low lung volumes with no acute disease. 3. CT scan of the abdomen and pelvis shows colonic diverticuli as well as healing nondisplaced fractures of several bilateral ribs and the left L2 transverse process. IMPRESSION: 1. Diabetic ketoacidosis. 2. Acute kidney injury. 3. Subacute rib fractures. 4. Subacute fracture of the transverse process of L2. 5. Paroxysmal atrial fibrillation. 6. Chronic systolic/diastolic heart failure. PLAN: 1. The patient received several liters of fluid and is now on the insulin drip. 2. The patient received antibiotics and has been adame-cultured. 3. Continue to monitor renal function. 4. Podiatry evaluation for the foot. 5. Consider Orthopedic evaluation for the transverse process fracture, initial imaging may be required. Augusto Roberts MD [facility]/MODL /[id number]
[2019-08-24 23:59] VITALS: BP 126/52
[2019-08-25] VITALS (17 sets, daily range): BP systolic 91–149; BP diastolic 44–96
[2019-08-25 00:44] LABS: ANION GAP 23.5 mmol/L (8-16); CREATININE, SERUM 2.42 mg/dL (0.57-1.11); MAGNESIUM 1.5 MG/DL (1.3-2.1)
[2019-08-25 00:50] LABS: CALCIUM 7.9 mg/dL (8.4-10.2)
[2019-08-25 00:52] LABS: POTASSIUM 2.5 mmol/L (3.5-5.1)
[2019-08-25] MEDS: POTASSIUM CHLORIDE 20MEQ/100ML 200 ML IV PRN (00:59)
[2019-08-25] MEDS ORDERED: SODIUM CHLORIDE 0.9% 1000ML 1,000 ML ONE (03:41)
[2019-08-25] MEDS: MAGNESIUM SULF 1GRAM/DEXTROSE 100 ML IV PRN (03:42)
[2019-08-25] MEDS ORDERED: MAGNESIUM SULF 1GRAM/DEXTROSE 100 ML IV ONE ×2 (03:42→07:28)
[2019-08-25] MEDS: DEXTROSE 5%/0.45% SOD CHL 1,000 ML IV SCH ×3 (04:07→16:55)
[2019-08-25 05:43] LABS: BASOPHILS % 0.1 % (0.0-1.0); EOSINOPHILS % 0.1 % (0.0-6.0); HEMATOCRIT 28.6 % (34.2-44.1); HEMOGLOBIN 9.7 g/dL (12.0-16.0); LYMPHOCYTES # (AUTO) 0.4 (1.0-3.2); LYMPHOCYTES % 2.7 % (18.0-39.1); MEAN CORPUSCULAR HEMOGLOBIN 33.7 pg (28-32); MEAN CORPUSCULAR HGB CONC 33.9 g/dL (31-35); MEAN CORPUSCULAR VOLUME 99.3 fL (81-99); MONOCYTES # (AUTO) 0.3 (0.2-0.8); MONOCYTES % 1.9 % (4.4-11.3); NEUTROPHILS # (AUTO) 13.8 (2.1-6.9); PLATELET COUNT 289 x10e3/uL (140-360); RED BLOOD COUNT 2.88 x10e6/uL (3.6-5.1)
[2019-08-25 05:58] LABS: ALBUMIN 1.4 g/dL (3.5-5.0); ALBUMIN/GLOBULIN RATIO 0.4 (0.8-2.0); ANION GAP 17.2 mmol/L (8-16); CALCIUM 8.1 mg/dL (8.4-10.2); CREATININE, SERUM 2.08 mg/dL (0.57-1.11); MAGNESIUM 1.7 MG/DL (1.3-2.1); POTASSIUM 3.2 mmol/L (3.5-5.1)
[2019-08-25] MEDS: PIPERACILLIN/TAZO 2.25 GM 50 ML IV SCH (06:11)
[2019-08-25 06:14] LABS: PHOSPHORUS 1.7 MG/DL (2.3-4.7)
[2019-08-25] MEDS: POTASSIUM CHLORIDE 20MEQ/100ML 100 ML IV PRN (06:17)
[2019-08-25] MEDS: AMIODARONE HCL 200 MG TAB PO SCH (08:01)
[2019-08-25] MEDS: LEVOTHYROXINE SODIUM 50 MCG TAB PO SCH (08:01)
[2019-08-25] MEDS: APIXAB 2.5 MG TABLET PO SCH ×2 (08:04→17:00)
[2019-08-25] MEDS: LISINOPRIL 20 MG TAB PO SCH (08:04)
[2019-08-25] MEDS: GABAPENTIN 300 MG CAP PO SCH ×2 (08:04→17:55)
[2019-08-25] MEDS: PANTOPRAZOLE SOD 40 MG TABEC PO SCH (08:06)
[2019-08-25 08:33] LABS: BAND NEUTROPHILS % (MANUAL) 14 %; LYMPHOCYTES % (MANUAL) 5 % (19-48); MONOCYTES % (MANUAL) 1 % (3.4-9.0); NEUTROPHILS % (MANUAL) 80 % (40-74)
[2019-08-25 08:35] LABS: BURR CELLS RN; PLATELET ESTIMATE ADEQUATE; PLATELET MORPHOLOGY COMMENT RARE EDTA CLUMPING; RBC MORPHOLOGY COMMENT NORMAL
[2019-08-25] MEDS ORDERED: RISPERIDONE 0.5 MG TAB PO ONE (08:50)
[2019-08-25] MEDS ORDERED: LISINOPRIL 20 MG TAB PO SCH (09:00)
--- NOTE | 2019-08-25 09:04 | Progress Note ---
DATE: Pulmonary Critical Care Progress Note The patient is complaining of pain in her legs. She also has some bloating. She remains on an insulin drip. PHYSICAL EXAMINATION: VITAL SIGNS: The blood pressure is 124/55 and the saturation is 99% on 2 L. The pulse is 79. HEENT: Shows no facial swelling or erythema. CARDIAC: Reveals regular rate and rhythm with normal S1 and S2. LUNGS: Auscultation of lungs reveals rhonchorous breath sounds bilaterally. There is no wheezing. ABDOMEN: Soft and nontender. There is no rebound or guarding. EXTREMITIES: Shows some tenderness and swelling on the dorsum of the foot near the great toe on the right side. There are good pulses. LABORATORY DATA: White blood cell count is 15, hemoglobin is 9.7. The platelet count is 289. The BUN to creatinine ratio is improved to 70/2.08. The potassium is 3.2. The carbon dioxide is 20. Anion gap is elevated at 17. Glucose is 166. Total albumin is 1.4. MICROBIOLOGICAL DATA: Urine cultures growing out gram-negative rods. IMPRESSION: 1. Diabetic ketoacidosis. 2. Acute kidney injury. 3. Cellulitis and ulceration of the right foot. 4. Subacute rib fractures. 5. Subacute fracture of the transverse process of L2. 6. Paroxysmal atrial fibrillation. 7. Chronic diastolic heart failure. PLAN: 1. Continue insulin drip. 2. Continue current antibiotics and await additional input from Infectious Disease. 3. Continue to monitor renal function. 4. Arterial duplex studies of the lower extremities. 5. Echocardiogram. 6. Podiatry evaluation. Greater than 35 minutes in direct critical care time. Augusto Roberts MD [facility]/MODL /[id number]
[2019-08-25 10:01] LABS: ANION GAP 20.4 mmol/L (8-16); CALCIUM 7.8 mg/dL (8.4-10.2); CREATININE, SERUM 2.07 mg/dL (0.57-1.11); POTASSIUM 3.4 mmol/L (3.5-5.1)
--- NOTE | 2019-08-25 12:01 | NUR ---
Nutrition Screen Note RD Recommendation for Physician: - As feasible, ADAT to goal of Plan of Care: RD following, monitoring for tolerance and adequacy Nutrition reason for involvement: Nutrition Risk Trigger Primary Diagnose(s): DKA, severe sepsis PMH: DM2, Ht: in Wt:lb BMI: kg/m2 IBW:lb RD Assessment: (08/24) Chart reviewed. Labs and meds reviewed. Current Diet: Clear liquids Malnutrition Evaluation (08/25/19) The patient does not meet criteria for a specified degree of malnutrition at this time. Will re-evaluate at follow-up as appropriate. RUBIO, pt currently PUI- did not enter room per current isolation protocol. Diet Education Needs Assessment: Diet education indicated, pt not appropriate at this time. Diet tolerance: pending Nutrition Care Level: low Signed: Belen Garcia RD, [place], [facility] Addendum: 08/25/19 at 1226 by Belen Garcia DIET Noted filed in error, complete note as follows: Nutrition Screen Note RD Recommendation for Physician: - As feasible, ADAT to goal of 1500 ADA Plan of Care: RD following, monitoring for tolerance and adequacy Nutrition reason for involvement: Nutrition Risk Trigger Primary Diagnose(s): DKA, severe sepsis PMH: DM2, Afib, HTN, CHF, hypothyroidism, diverticulosis Ht: 62 in Wt: 131 lb BMI: 24 kg/m2 IBW: [address] Assessment: (08/24) 79 YOF admitted for DKA and severe sepsis found to have healing broken ribs and L2 fracture upon admit due to falls per MD notes. Pt discussed during am MDR, continues on insulin drip and CLD tolerance pending. Pt currently PUI, unable to obtain hx at time of visit. No reported poor intake per admit H&P. Pt wt stable x 1 yr per prior admit wt of 132#. Pt educated on DM diet restrictions at prior admit, will address education needs at follow up visit. Chart reviewed. Labs and meds reviewed. Current Diet: Clear liquids Malnutrition Evaluation (08/25/19) The patient does not meet criteria for a specified degree of malnutrition at this time. Will re-evaluate at follow-up as appropriate. RUBIO, pt currently PUI- did not enter room per current isolation protocol. Diet Education Needs Assessment: Diet education indicated, pt not appropriate at this time. Diet tolerance: pending Nutrition Care Level: low Signed: Belen Garcia RD, LD, [facility]
[2019-08-25] MEDS: CEFEPIME 1GM/NS 0.9% 50 ML 50 ML IV SCH ×2 (12:10→23:14)
[2019-08-25] MEDS: VANCOMYCIN HCL 1.5 GM in SODIUM CHLORIDE 0.9% 250ML 300 ML IV SCH (12:34)
--- NOTE | 2019-08-25 13:55 | Operative Report ---
DATE OF PROCEDURE: SURGEON: Augusto Roberts MD PROCEDURE: Central line placement under ultrasound guidance. PREOPERATIVE DIAGNOSIS: Acute kidney injury. POSTOPERATIVE DIAGNOSIS: Acute kidney injury. CONSENT: Consent was obtained from the patient and the family. ANESTHESIA: 1% lidocaine for local anesthesia. DESCRIPTION OF PROCEDURE: The patient was placed in a supine position. The right neck was prepped sterilely with chlorhexidine. A full length sterile drape, sterile cap, sterile gowns, and masks were used. The right internal jugular vein was located with an ultrasound machine. It compressed easily. There was no intraluminal thrombosis. The patient was then anesthetized with 1% lidocaine. A 16-gauge needle was used to cannulate the right internal jugular vein under direct visualization. A guidewire was then passed through the needle. A dilator was used to open the skin and a triple-lumen catheter was placed over the wire by the Seldinger technique. All the ports flushed. COMPLICATIONS: None. ESTIMATED BLOOD LOSS: None. Augusto Roberts MD [facility]/MODL /[id number]
--- NOTE | 2019-08-25 14:03 | Diagnostic Imaging Report ---
OR ultrasonography: IMPRESSION: Ultrasonography provided in the OR. Interpretation not requested. Signed by: Kannan Burgos MD on 08/25/2019 1:59 PM
--- NOTE | 2019-08-25 14:25 | Consultation ---
DATE OF CONSULTATION: REASON FOR CONSULTATION: Sepsis. HISTORY OF PRESENT ILLNESS: The patient, who is a 79-year-old female with history of diabetes mellitus, atrial fibrillation, hypertension, chronic congestive heart failure, and osteoarthritis. The patient apparently also have gout. She was on steroid, comes in with fever, chills, and altered mental status. She was found to be in diabetic ketoacidosis. The patient is being admitted. She had CAT scan showed old bilateral rib fracture. The patient currently in intensive care unit. She has been checked for COVID-19, which is still pending. The patient, who has history of coronary artery disease, CABG, stent placement several years ago, colonoscopy, diverticulosis in 2016, atrial fibrillation, congestive heart failure, diabetes mellitus, hypertension, and hypothyroidism. ALLERGIES: CODEINE. SOCIAL HISTORY: No smoking, drug abuse, or alcohol abuse. FAMILY HISTORY: Hypertension. REVIEW OF SYSTEMS: The patient has been stable, currently not a good source of information. According to the medical team, she is feeling better. PHYSICAL EXAMINATION: GENERAL: She is currently alert and oriented. VITAL SIGNS: Stable, afebrile. HEENT: She is not icteric. NECK: Supple. CHEST: Few crackles bilateral. HEART: S1 and S2. No S3, S4, or murmurs. ABDOMEN: Soft. Bowel sounds present. No tenderness. No hepatosplenomegaly. EXTREMITIES: No edema. SKIN: No rash. IMPRESSION: 1. Sepsis on admission, diabetic ketoacidosis, bacteremia, gram-positive cocci present on admission, urinary tract infection with gram-negative present on admission, [id number] kidney disease. 2. Chronic infection of the right foot, concerned about osteomyelitis. 3. Subacute rib fracture. 4. Atrial fibrillation, chronic congestive heart failure. We will put the patient on vancomycin and cefepime, and adjust for kidney function. We will follow vancomycin trough. Recheck CBC. Recheck chem panel. Await culture sensitivity. Discussed with medical team. Await COVID-19. We will keep her on droplet isolation for now. MD GRACE Leo/ILDA /[id number]
[2019-08-25 14:40] LABS: ANION GAP 18.1 mmol/L (8-16); CALCIUM 8.1 mg/dL (8.4-10.2); CREATININE, SERUM 2.06 mg/dL (0.57-1.11); POTASSIUM 3.1 mmol/L (3.5-5.1)
--- NOTE | 2019-08-25 15:28 | Diagnostic Imaging Report ---
X-ray chest AP portable Comparison: 08/24/2019 History: Central line placement Findings: Right IJ route central venous catheter is seen with the tip overlying right atrium, mid to low. It is partially obscured by the overlying AICD wires. There is no pneumothorax. No other changes are seen compared with the earlier x-ray. Impression: Right IJ CV line in good position. Signed by: Kannan Burgos MD on 08/25/2019 3:24 PM
[2019-08-25] MEDS: INSULIN REGULAR, HUMAN 3ML VL 100 UNIT in SODIUM CHLORIDE 0.9% 100 ML IV SCH ×2 (18:37)
[2019-08-25] MEDS ORDERED: HYDROCODONE/APAP 7.5MG-325MG 1 EA TAB PO PRN (22:45)
[2019-08-26] VITALS (17 sets, daily range): BP systolic 85–130; BP diastolic 32–100
[2019-08-26] MEDS: DEXTROSE 5%/0.45% SOD CHL 1,000 ML IV SCH ×3 (00:30→20:30)
[2019-08-26] MEDS: INSULIN REGULAR, HUMAN 3ML VL 100 UNIT in SODIUM CHLORIDE 0.9% 100 ML IV SCH ×6 (03:46→20:26)
[2019-08-26 05:30] LABS: BASOPHILS # (AUTO) 0.1 (0.0-0.1); BASOPHILS % 0.4 % (0.0-1.0); EOSINOPHILS # (AUTO) 0.1 (0.0-0.4); EOSINOPHILS % 0.4 % (0.0-6.0); HEMOGLOBIN 9.5 g/dL (12.0-16.0); LYMPHOCYTES # (AUTO) 0.6 (1.0-3.2); LYMPHOCYTES % 4.6 % (18.0-39.1); MEAN CORPUSCULAR HEMOGLOBIN 32.4 pg (28-32); MEAN CORPUSCULAR HGB CONC 32.8 g/dL (31-35); MONOCYTES # (AUTO) 0.5 (0.2-0.8); MONOCYTES % 3.4 % (4.4-11.3); NEUTROPHILS # (AUTO) 12.5 (2.1-6.9); PLATELET COUNT 288 x10e3/uL (140-360); RED BLOOD COUNT 2.93 x10e6/uL (3.6-5.1); RED CELL DISTRIBUTION WIDTH 14.3 % (11.7-14.4)
[2019-08-26 05:48] LABS: ALBUMIN 1.2 g/dL (3.5-5.0); ALBUMIN/GLOBULIN RATIO 0.3 (0.8-2.0); ANION GAP 17.5 mmol/L (8-16); CALCIUM 8.4 mg/dL (8.4-10.2); CREATININE, SERUM 2.11 mg/dL (0.57-1.11); MAGNESIUM 2.3 MG/DL (1.3-2.1); PHOSPHORUS 2.6 MG/DL (2.3-4.7); POTASSIUM 3.5 mmol/L (3.5-5.1)
[2019-08-26] MEDS: LEVOTHYROXINE SODIUM 50 MCG TAB PO SCH (06:32)
[2019-08-26 06:43] LABS: BAND NEUTROPHILS % (MANUAL) 5 %; LYMPHOCYTES % (MANUAL) 5 % (19-48); MONOCYTES % (MANUAL) 5 % (3.4-9.0); NEUTROPHILS % (MANUAL) 85 % (40-74); PLATELET ESTIMATE ADEQUATE; PLATELET MORPHOLOGY COMMENT NORMAL; RBC MORPHOLOGY COMMENT NORMAL
[2019-08-26] MEDS ORDERED: RISPERIDONE 0.5 MG TAB PO SCH (09:00)
[2019-08-26] MEDS: LISINOPRIL 20 MG TAB PO SCH (09:00)
--- NOTE | 2019-08-26 10:04 | Progress Note ---
DATE: SUBJECTIVE: The patient is afebrile, but has Gram-negative rods in the urine and Gram-positive cocci in chains in the blood. She complains of pain and swelling in her foot. She remains on the insulin drip. She is also receiving D5 half-normal saline. PHYSICAL EXAMINATION: VITAL SIGNS: The blood pressure is 91/58 and the saturation is 95% on 2 L. Heart rate is 93. Respiratory rate is 14. HEENT: Shows no facial swelling or erythema. There is a right IJ line. The site looks clean. There is no drainage. CARDIAC: Reveals regular rate and rhythm with normal S1, S2. LUNGS: Auscultation of lungs shows decreased breath sounds at the bases. There is no wheezing. ABDOMEN: Soft and nontender. There is no rebound or guarding. She has swelling of the right foot with some fluctuance on the dorsal aspect of the 1st metatarsophalangeal joint. She also has an ulceration on the medial malleolus. LABORATORY DATA: The BUN to creatinine ratio is 68 to 2.11. The potassium is 3.5 and the blood sugar is 227. Albumin is 1.2. White blood cell count is 14 and hemoglobin is 9.5. The platelet count is 288. IMPRESSION: 1. Diabetic ketoacidosis. 2. Acute kidney injury. 3. Cellulitis and possible osteomyelitis of the right foot. 4. Urinary tract infection with Gram-negative shahida. 5. Subacute fracture of the transverse processes of L2. 6. Chronic and subacute rib fractures. 7. Chronic diastolic heart failure. 8. Paroxysmal atrial fibrillation. 9. Anemia, unspecified. 10. Moderate protein-calorie malnutrition. PLAN: 1. Continue current antibiotics. The patient is on cefepime and vancomycin. 2. Continue to monitor electrolytes and renal function. 3. Continue DKA protocol. 4. Podiatry consultation. 5. Continue current cardiac regimen. 6. Risperidone low-dose for agitation. 7. Greater than 35 minutes in direct critical care time. 8. Case discussed with nursing, Internal Medicine, and Radiology. Augusto Roberts MD [facility]AD[facility] /[id number]
[2019-08-26] MEDS: AMIODARONE HCL 200 MG TAB PO SCH (10:29)
[2019-08-26] MEDS: APIXAB 2.5 MG TABLET PO SCH ×2 (10:29→18:26)
[2019-08-26] MEDS: GABAPENTIN 300 MG CAP PO SCH ×2 (10:29→18:26)
[2019-08-26] MEDS: PANTOPRAZOLE SOD 40 MG TABEC PO SCH (10:30)
[2019-08-26] MEDS: CEFEPIME 1GM/NS 0.9% 50 ML 50 ML IV SCH (11:23)
[2019-08-26] MEDS: VANCOMYCIN HCL 1.5 GM in SODIUM CHLORIDE 0.9% 250ML 300 ML IV SCH (13:00)
[2019-08-26 15:53] LABS: ANION GAP 15.5 mmol/L (8-16); CREATININE, SERUM 2.19 mg/dL (0.57-1.11); POTASSIUM 3.5 mmol/L (3.5-5.1)
--- NOTE | 2019-08-26 18:57 | Progress Note ---
DATE: SUBJECTIVE: Ms. Phillips remains in Intensive Care Unit, comfortable. LABORATORY DATA: Reviewed. Her urine is E coli. Blood showing Streptococcus agalactiae group B, and the E coli was pretty much pansensitive. Her white count is 14.0 and hemoglobin 9.5. Her COVID-19 is still pending. PHYSICAL EXAMINATION: GENERAL: She is currently alert. VITAL SIGNS: Stable, afebrile. HEENT: She is not icteric. NECK: Supple. CHEST: Clear. HEART: S1, S2. No S3 or S4. No murmur. ABDOMEN: Soft. Bowel sounds present. No tenderness. EXTREMITIES: No edema. She continued to have an ulcer noted on the right leg, erythema subsided. Please refer to the Wound Care. IMPRESSION: 1. Sepsis on admission due to bacteremia, Streptococcus group B agalactiae. 2. Urinary tract infection with Escherichia coli. 3. Anemia. 4. Diabetic ketoacidosis. 5. Acute kidney injury. 6. Right foot infection. 7. Subacute fracture of transverse L2. 8. Chronic congestive heart failure. 9. Paroxysmal atrial fibrillation. PLAN: 1. The plan is to change her to Rocephin. Recheck blood cultures. Rocephin 1 g q.12. Recheck CBC. Recheck Chem panel. X-ray of the foot. 2. Vascular workup is in progress. 3. We will follow. MD GRACE Leo/ILDA /[id number]
[2019-08-26] MEDS: RISPERIDONE 0.5 MG TAB PO SCH (21:00)
[2019-08-26] MEDS: CEFTRIAXONE SOD 1 GM/NS 50 ML 50 ML IV SCH (21:00)
[2019-08-26 22:27] LABS: ANION GAP 18.5 mmol/L (8-16); CALCIUM 8.3 mg/dL (8.4-10.2); CREATININE, SERUM 2.33 mg/dL (0.57-1.11); MAGNESIUM 2.2 MG/DL (1.3-2.1); POTASSIUM 3.5 mmol/L (3.5-5.1)
[2019-08-27] VITALS (17 sets, daily range): BP systolic 89–138; BP diastolic 37–89
--- NOTE | 2019-08-27 00:57 | Consultation ---
DATE OF CONSULTATION: 08/26/2019 REASON FOR CONSULTATION: Ulceration to the right ankle with possible osteomyelitis. HISTORY OF PRESENT ILLNESS: The patient is seen at bedside, not responsive to verbal stimuli with a history of hypertension, chronic heart failure, atrial fibrillation, and diabetes. She presented through the emergency room with diabetic ketoacidosis and hyperglycemia. According to the records and nurses spoken to the family members, the patient has had ulcerations for more than several months now. ALLERGIES: CODEINE, ALPRAZOLAM, ZYRTEC. SOCIAL HISTORY: No drinking, smoking, or recreational drug use. FAMILY HISTORY: Noncontributory. PAST SURGICAL HISTORY: Remarkable for right coronary arthrectomy, colonoscopy. REVIEW OF SYSTEMS: Unobtainable. VITAL SIGNS: Afebrile, pulse rate 75, respirations 20, blood pressure 195/51, and O2 saturation 100%. LABORATORY DATA: Noted, has a white blood cell count of 14.01, hemoglobin 9.5 with a platelet count of 288. The patient's INR is 1.76 with a blood glucose of 138. X-rays of the foot show no gas in the tissue. PODIATRIC PHYSICAL EXAMINATION: VASCULATURE: Pedal pulses of both the DP and PT are barely to nonpalpable to both lower extremities, right worse than left. NEUROLOGICAL: Reveals loss of protective sensation. MUSCULOSKELETAL: Reveals muscle mass to be asymmetrical. Some swelling noted to the right lower extremity when compared to the left lower extremity. Some cellulitis up to the mid calf area. DERMATOLOGIC: She has forefoot edema with a grade 3, possibly 4 ulceration medial aspect of the right talotibial joint, measuring more than 3-4 cm in diameter. ASSESSMENT: Possible osteomyelitis with peripheral arterial disease, diabetic neuropathy with a grade 3/4 ulceration with pregangrenous changes. PLAN: X-rays, three views right ankle will be ordered. We will start Santyl followed by diluted wet-to-dry Betadine b.i.d. Keeping foot offloaded with the toe under calf. We will continue ceftriaxone IV q.12 h. 1 g. Cultures will be taken for aerobic, anaerobic growth. Prognosis guarded secondary to her poor vascular supply. LANDEN Moya/MODL /[id number]
[2019-08-27 02:47] LABS: ANION GAP 18.7 mmol/L (8-16); CALCIUM 8.4 mg/dL (8.4-10.2); CREATININE, SERUM 2.34 mg/dL (0.57-1.11); POTASSIUM 3.7 mmol/L (3.5-5.1)
--- NOTE | 2019-08-27 06:03 | Consultation ---
DATE OF CONSULTATION: SUBJECTIVE: The patient states she feels okay and no new issues overnight. OBJECTIVE: VITAL SIGNS: Temperature 98.0, pulse 92, blood pressure 103/56, saturations 100%. GENERAL: She is in no apparent distress, lying in bed. CARDIOVASCULAR: Regular rate and rhythm. LUNGS: Clear to auscultation bilaterally. ABDOMEN: Good bowel sounds. Soft, nontender. EXTREMITIES: No clubbing or cyanosis. Right foot does look less red. NEUROLOGIC: Nonfocal. Moves all extremities x4. ASSESSMENT/PLAN: 1. Sepsis secondary to urinary tract infection and cellulitis. Continue with antibiotics per Infectious Disease. 2. Diabetic ketoacidosis has resolved, so continue to monitor. 3. Diabetes. Continue to monitor her sugars. 4. Chronic kidney disease, stage 3. This appears to be stable, so continue to monitor daily laboratory data. 5. Hypothyroidism. Continue with her medication. 6. Anemia. Continue to monitor. 7. Leukocytosis. Also continue to monitor with daily CBC. Please see hospital chart for full details. MD PATSY Art/MODL /[id number]
[2019-08-27] MEDS: DEXTROSE 5%/0.45% SOD CHL 1,000 ML IV SCH ×3 (06:30→22:25)
[2019-08-27 07:11] LABS: BASOPHILS # (AUTO) 0.1 (0.0-0.1); BASOPHILS % 0.8 % (0.0-1.0); EOSINOPHILS % 0.1 % (0.0-6.0); HEMATOCRIT 28.7 % (34.2-44.1); HEMOGLOBIN 9.1 g/dL (12.0-16.0); LYMPHOCYTES # (AUTO) 0.8 (1.0-3.2); LYMPHOCYTES % 5.5 % (18.0-39.1); MEAN CORPUSCULAR HEMOGLOBIN 32.5 pg (28-32); MEAN CORPUSCULAR HGB CONC 31.7 g/dL (31-35); MEAN CORPUSCULAR VOLUME 102.5 fL (81-99); MONOCYTES # (AUTO) 0.3 (0.2-0.8); MONOCYTES % 1.9 % (4.4-11.3); NEUTROPHILS # (AUTO) 13.4 (2.1-6.9); NEUTROPHILS % 89.1 % (38.7-80.0); PLATELET COUNT 257 x10e3/uL (140-360); RED CELL DISTRIBUTION WIDTH 14.7 % (11.7-14.4)
[2019-08-27 07:22] LABS: ALBUMIN 1.2 g/dL (3.5-5.0); ALBUMIN/GLOBULIN RATIO 0.3 (0.8-2.0); ANION GAP 17.4 mmol/L (8-16); CALCIUM 8.3 mg/dL (8.4-10.2); CREATININE, SERUM 2.34 mg/dL (0.57-1.11); MAGNESIUM 2.1 MG/DL (1.3-2.1); PHOSPHORUS 4.4 MG/DL (2.3-4.7); POTASSIUM 3.4 mmol/L (3.5-5.1)
[2019-08-27] MEDS: CEFTRIAXONE SOD 1 GM/NS 50 ML 50 ML IV SCH ×2 (09:00→21:30)
[2019-08-27] MEDS: AMIODARONE HCL 200 MG TAB PO SCH (09:00)
[2019-08-27] MEDS: LEVOTHYROXINE SODIUM 50 MCG TAB PO SCH (09:00)
[2019-08-27] MEDS: RISPERIDONE 0.5 MG TAB PO SCH (09:00)
[2019-08-27] MEDS: GABAPENTIN 300 MG CAP PO SCH ×2 (09:00→17:00)
[2019-08-27] MEDS: LISINOPRIL 20 MG TAB PO SCH (09:00)
[2019-08-27] MEDS: PANTOPRAZOLE SOD 40 MG TABEC PO SCH (09:00)
[2019-08-27 09:27] LABS: EOSINOPHILS % (MANUAL) 1 % (0-7); LYMPHOCYTES % (MANUAL) 8 % (19-48); MONOCYTES % (MANUAL) 4 % (3.4-9.0); NEUTROPHILS % (MANUAL) 87 % (40-74)
[2019-08-27 09:28] LABS: ANISOCYTOSIS SLIGHT; PLATELET ESTIMATE ADEQUATE; PLATELET MORPHOLOGY COMMENT NORMAL; RBC MORPHOLOGY COMMENT NORMAL
--- NOTE | 2019-08-27 10:43 | Diagnostic Imaging Report ---
EXAMINATION: ANKLE 3 + VIEWS RIGHT INDICATION: Cellulitis COMPARISON: None FINDINGS: No acute fracture or dislocation. Mild circumstantial right ankle soft tissue swelling. Mild soft tissue ulceration along the medial aspect of the ankle without specific underlying radiographic findings of osteomyelitis. Alignment is anatomic. No ankle joint effusion. Scattered atherosclerotic arterial calcifications. Small plantar calcaneal spur. IMPRESSION: No acute osseous injury. Mild soft tissue ulceration along the medial ankle without specific underlying findings of osteomyelitis. Signed by: Ilir Krueger MD on 08/27/2019 10:40 AM
--- NOTE | 2019-08-27 11:59 | Progress Note ---
DATE: 08/27/2019 SUBJECTIVE: The patient is seen at bedside. No change. OBJECTIVE: VITAL SIGNS: Afebrile, pulse rate 80, respiration 15, blood pressure 108/89, and O2 saturation 100%. EXTREMITIES: Pedal pulses to both lower extremities diminished. Has an ulceration medial aspect right talotibial joint with some necrosis, possibly down to bone. LABORATORY DATA: Show white blood cell count of 4.98. ASSESSMENT: Peripheral arterial disease, grade 3/4 ulceration with possible osteo. PLAN: Awaiting ankle x-rays. Continue Santyl, followed by diluted wet-to-dry Betadine to affected areas. Continue offloading. We will continue to follow. LANDEN Moya/ILDA /[id number]
[2019-08-27] MEDS: APIXAB 2.5 MG TABLET PO SCH (12:59)
[2019-08-27] MEDS: COLLAGENASE 5 GM TUBE TOP SCH (13:00)
[2019-08-27] MEDS: POTASSIUM CHLORIDE 20MEQ/100ML 200 ML IV PRN (13:24)
--- NOTE | 2019-08-27 13:28 | NUR ---
WOUND CARE CONSULT FOR 79 YO FEMALE HX OF DKA,SEPSIS JENNIFER 13 ON MODERATE PUP STATUS AND INTERVENTIONS AND ALTERNATING PRESSURE MATTRESS LABS: WBC-14.98 HGB_9.1 GLUCOSE-134 SKIN ASSESSMENT COMPLETE PATIENT PRESENTS WITH MULTIPLE SITES SEE ASSESSMENT SHEET MEASUREMENTS AND DESCRIPTION DR MILLAN TREATMENT ORDERS IN PLACE FOR RIGHT LE RECOMMENDATIONS: NURSING TO CONTINUE TO MAINTAIN MODERATE PUP STATUS AND INTERVENTIONS AND ALTERNATING PRESSURE MATTRESS NURSING TO CONTINUE TO ASSIST PATIENT OUT OF BED FOR MEALS AND MUCH TOLERATED NURSING TO CONTINUE TO ASSIST PATIENT NEEDED WITH MEALS AND NUTRITIONAL SUPPLEMENTS TO ENSURE PROPER REQUIREMENTS FOR HEALING NURSING TO CONTINUE TO OFFLOAD FEET AND HEELS NEEDED WITH PILLOW SUSPENSION WHEN IN BED NURSING TO CLEAN SCABBED ESCHAR AREAS TI LEFT KNEE, RIGHT ARM SKIN TEAR LEFT ARM AND ELBOW SKIN TEAR, AND FLUID FILLED BLISTER WITH NORMAL SALINE DAILY AND APPLY VENELEX OINTMENT AND LEAVE OPEN TO AIR Addendum: 08/27/19 at 1335 by Lamont Case RN Amended: Links added.
--- NOTE | 2019-08-27 17:52 | Progress Note ---
DATE: SUBJECTIVE: The patient was seen by Podiatry. She is being continued on antibiotics. PHYSICAL EXAMINATION: VITAL SIGNS: The blood pressure is 104/64 and saturation is 100% on 2 L. HEENT: Shows no facial swelling or erythema. There is a right IJ. The site looks clean. CARDIAC: Reveals regular rate and rhythm with normal S1 and S2. LUNGS: Auscultation of lungs reveals decreased breath sounds at the bases. There is no wheezing. ABDOMEN: Soft and nontender. There is no rebound or guarding. EXTREMITIES: Shows no leg edema or calf tenderness. There is no cyanosis or clubbing. SKIN: Shows no rashes. NEUROLOGIC: Shows somnolence, but the patient is arousable. LABORATORY DATA: White blood cell count is 14.8 and the hemoglobin is 9.1. The platelet count is 257. BUN to creatinine ratio is 74 to 2.34 and the sodium is 134. The albumin is 1.2. IMPRESSION: 1. Cellulitis and possible osteomyelitis of the right foot. 2. Escherichia coli urinary tract infection and sepsis, present on admission. 3. Chronic renal failure, stage 3. 4. Chronic diastolic heart failure. 5. Paroxysmal atrial fibrillation. 6. Anemia. 7. Moderate protein-calorie malnutrition. PLAN: 1. Continue current antibiotics. 2. Continue wound care. 3. Hold risperidone because of sedation. 4. Hold Eliquis for today because of some skin bleeding. 5. Continue to monitor blood counts and electrolytes. MD VANDANA Roth/ILDA /[id number]
[2019-08-27 22:16] LABS: CALCIUM 8.2 mg/dL (8.4-10.2); CREATININE, SERUM 2.36 mg/dL (0.57-1.11)
[2019-08-28] VITALS (12 sets, daily range): BP systolic 105–157; BP diastolic 47–80
[2019-08-28 02:51] LABS: ANION GAP 17.6 mmol/L (8-16); CALCIUM 8.4 mg/dL (8.4-10.2); CREATININE, SERUM 2.4 mg/dL (0.57-1.11); POTASSIUM 3.6 mmol/L (3.5-5.1)
[2019-08-28] MEDS: COLLAGENASE 5 GM TUBE TOP SCH ×3 (05:00→20:09)
[2019-08-28] MEDS: INSULIN REGULAR, HUMAN 3ML VL 100 UNIT in SODIUM CHLORIDE 0.9% 100 ML IV SCH ×8 (05:46→20:43)
[2019-08-28] MEDS: LEVOTHYROXINE SODIUM 50 MCG TAB PO SCH (06:00)
[2019-08-28 06:59] LABS: BASOPHILS # (AUTO) 0.1 (0.0-0.1); BASOPHILS % 0.3 % (0.0-1.0); EOSINOPHILS % 0.2 % (0.0-6.0); HEMATOCRIT 28.6 % (34.2-44.1); HEMOGLOBIN 9.2 g/dL (12.0-16.0); LYMPHOCYTES # (AUTO) 0.6 (1.0-3.2); LYMPHOCYTES % 4.1 % (18.0-39.1); MEAN CORPUSCULAR HEMOGLOBIN 32.2 pg (28-32); MEAN CORPUSCULAR HGB CONC 32.2 g/dL (31-35); MONOCYTES # (AUTO) 0.6 (0.2-0.8); MONOCYTES % 4.3 % (4.4-11.3); NEUTROPHILS # (AUTO) 12.2 (2.1-6.9); NEUTROPHILS % 85.4 % (38.7-80.0); PLATELET COUNT 266 x10e3/uL (140-360); RED BLOOD COUNT 2.86 x10e6/uL (3.6-5.1); RED CELL DISTRIBUTION WIDTH 14.8 % (11.7-14.4)
--- NOTE | 2019-08-28 07:15 | NUR ---
Patient moved to room IM room 187. Bed locked and in lowest position. Call light within reach. No issues noted.
[2019-08-28 07:23] LABS: ALBUMIN 1.4 g/dL (3.5-5.0); ALBUMIN/GLOBULIN RATIO 0.3 (0.8-2.0); CALCIUM 8.3 mg/dL (8.4-10.2); CREATININE, SERUM 2.42 mg/dL (0.57-1.11); PHOSPHORUS 4.7 MG/DL (2.3-4.7)
[2019-08-28] MEDS: BALSAM PERU/CASTOR OIL 60 GM OINT...G. TP SCH (07:35)
[2019-08-28] MEDS: MAGNESIUM SULF 1GRAM/DEXTROSE 100 ML IV PRN (08:01)
[2019-08-28] MEDS: POTASSIUM CHLORIDE 20MEQ/100ML 100 ML IV PRN ×2 (08:01→21:09)
[2019-08-28] MEDS: POTASSIUM CHLORIDE 20MEQ/100ML 200 ML IV PRN (08:02)
[2019-08-28 08:43] LABS: ANISOCYTOSIS SLIGHT; LYMPHOCYTES % (MANUAL) 5 % (19-48); MONOCYTES % (MANUAL) 4 % (3.4-9.0); MYELOCYTES % (MANUAL) 2 % (0-0); NEUTROPHILS % (MANUAL) 89 % (40-74); PLATELET ESTIMATE ADEQUATE; PLATELET MORPHOLOGY COMMENT NORMAL; RBC MORPHOLOGY COMMENT NORMAL
[2019-08-28] MEDS: PANTOPRAZOLE SOD 40 MG TABEC PO SCH (09:20)
[2019-08-28] MEDS: CEFTRIAXONE SOD 1 GM/NS 50 ML 50 ML IV SCH ×2 (09:20→21:07)
[2019-08-28] MEDS: LISINOPRIL 20 MG TAB PO SCH (09:20)
[2019-08-28] MEDS: GABAPENTIN 300 MG CAP PO SCH ×2 (09:20→17:00)
[2019-08-28] MEDS: AMIODARONE HCL 200 MG TAB PO SCH (09:20)
--- NOTE | 2019-08-28 09:32 | Diagnostic Imaging Report ---
EXAMINATION: FOOT RIGHT COMPLETE, ANKLE 3 + VIEWS RIGHT INDICATION: Osteomyelitis COMPARISON: None FINDINGS: Soft tissue ulceration at the level of the medial malleolus. No underlying acute osseous injury or specific radiographic evidence of osteomyelitis. Small plantar calcaneal spur. Scattered atherosclerotic arterial calcifications. IMPRESSION: Soft tissue ulceration at the medial ankle without underlying acute osseous injury or specific radiographic evidence of osteomyelitis. Signed by: Ilir Krueger MD on 08/28/2019 9:29 AM
--- NOTE | 2019-08-28 10:40 | Progress Note ---
DATE: SUBJECTIVE: The patient is seen and evaluated. Available labs and notes reviewed. REVIEW OF SYSTEMS: The patient has no complaints. Not much to talk. No nausea, vomiting, fever, chills, chest pain, shortness of breath, headache, rash. OBJECTIVE: VITAL SIGNS: Temperature is 98, pulse 80, respirations 17, blood pressure 105/62. GENERAL: Alert and oriented, no acute distress. CV: S1 and S2. CHEST: Equal expansion. Clear to auscultation. No acute distress. ABDOMEN: Soft. No distention. No tenderness. HEENT: Moist. No pallor. No JVD. EXTREMITIES: Right foot wound dressed with toes cold. Left foot is cold up to mid tib-fib area. Multiple ecchymoses in bilateral upper extremities and superficial wounds. MEDICATIONS: Medication list reviewed. As far as Infectious Disease point of view, patient is on Rocephin. LABORATORY STUDIES: White count of 14.32, hemoglobin 9.2, platelet 266. Sodium 135, potassium 4, creatinine 2.49. SEROLOGY: Coronavirus PCR not detected on 08/24/2019. MICROBIOLOGY: Blood culture, strep agalactiae group B on 08/24/2019. Urine culture, E coli 08/24/2019, which is sensitive to Rocephin. Wound culture from the right ankle and right foot pending. RADIOLOGY STUDIES: X-ray of the ankle on the right side showed no acute osseous injury, showed mild soft tissue ulceration along the medial ankle without specific underlying findings of osteomyelitis. Chest x-ray 08/25/2019 showed right IJCV line in good position. CT of abdomen and pelvis on 08/28/2019 showed extensive colonic diverticula, worsened in the sigmoid colon without evidence of acute diverticulitis. Also, showed a healing nondisplaced fracture of several bilateral lower ribs and of left L2 transverse process. Additional findings which are seen with dehydration and mild bilateral renal atrophy. ASSESSMENT AND PLAN: 1. Sepsis on admission due to bacteremia with Streptococcus group B agalactiae. 2. Escherichia coli urinary tract infection. 3. Diabetes with diabetic ketoacidosis. 4. Anemia. 5. Chronic acute kidney injury. 6. Infected right foot. 7. Subacute fracture of transverse L2. 8. Congestive heart failure. 9. Atrial fibrillation. 10. Follow with the wound culture. Continue with antibiotics as mentioned above. Continue with wound care, leukocytosis slightly improved. Continue to monitor renal function with creatinine level seems to be pretty stable since yesterday. 11. The patient with protein calorie malnutrition with albumin level of 1.4. AST, ALT, and alkaline phosphatase within normal limits. Lactic acid was 1.9 on 08/24/2019. Continue to monitor the patient clinically and follow with the labs. Discussed with Dr. Barreto in details. Please refer to chart for more information. Dictated by Jemal Hagan) DINORA Yanez Maurizio Barreto MD /MODL /[id number]
[2019-08-28] MEDS: DEXTROSE 5%/0.45% SOD CHL 1,000 ML IV SCH ×4 (12:00→21:47)
[2019-08-28 12:38] LABS: ANION GAP 18.1 mmol/L (8-16); CALCIUM 7.5 mg/dL (8.4-10.2); CREATININE, SERUM 2.29 mg/dL (0.57-1.11); POTASSIUM 4.1 mmol/L (3.5-5.1)
--- NOTE | 2019-08-28 14:35 | Progress Note ---
DATE: 08/28/2019 SUBJECTIVE: The patient is seen at bedside, having some discomfort to the right lower extremity. Communicating well on this day. She is denying any history of fever, chills, nausea, or vomiting. OBJECTIVE: VITAL SIGNS: Afebrile, pulse rate 82, respirations 16, blood pressure 105/62, and O2 saturation 100%. EXTREMITIES: Multiple ulcerations noted to the right lower extremity, specifically down to bone medial aspect of the right talotibial joint. Has an ulceration dorsal aspect of the right foot with some drainage noted and an ulceration overlying the 1st metatarsophalangeal joint. Pedal pulses diminished. LABORATORY DATA: Show white blood cell count of 14.3. ASSESSMENT: Grade 3/4 ulceration, possible osteomyelitis with multiple ulcerations and deep cellulitis with necrosis, dorsal aspect right foot. PLAN: Sharp excisional debridement of the ulcers was carried very close to bone. Bone was scraped to the medial aspect. Devitalized tissue was sharply excised until good viable bleeding tissue was achieved via the use of a sterile 10 blade. Sharp excisional debridement was also performed to the dorsal aspect right foot. Approximately, 5 mL of purulent drainage was obtained and cultured for aerobic and anaerobic growth. Sterile dressing was applied with Santyl followed by diluted wet-to-dry Betadine. We will continue IV antibiotics such as ceftriaxone. We will treat the patient conservatively for now. If the patient becomes do not respond, further debridement will be done to try to salvage legs. No guarantees can be given. X-rays 3 views of the right foot and ankle to be repeated today and CBC with diff will also be done. LANDEN Moya/ILDA /[id number]
[2019-08-28 16:33] LABS: ANION GAP 17.6 mmol/L (8-16); CALCIUM 7.5 mg/dL (8.4-10.2); CREATININE, SERUM 2.39 mg/dL (0.57-1.11); POTASSIUM 3.6 mmol/L (3.5-5.1)
--- NOTE | 2019-08-28 18:03 | NUR ---
CARE WAS ASSUMED AT 0700 THIS AM WHEN THIS PATIENT WAS TRANSFERRED TO ROOM 187 IN [facility] FROM ICU [id number]. THIS PATIENT IS HERE FOR DKA AND IS CURRENTLY ON AN INSULIN GTT AT 6CC/HR. SHE HAS Q2 HR BLOOD SUGAR CHECKS AND Q4HR BMP'S WITH MAGNESIUM LEVELS TO EVALUATE HER ANION GAP AND CO2 LEVELS. CURRENTLY SHE IS 151 AND HER CO2 IS 17.6 AND HER ANION GAP IS 14. SHE IS NOT COMPLAINING OF PAIN. DR. Rosie YOUSSEF DID DEBRIDE HER RIGHT FOOT WOUND AND SENT A CULTURE TO LAB, HE DRESSED THE WOUND WITH SANTYL AND 4X4'S SOAKED IN BETADINE AND SALINE THEN COVERED THE FOOT WITH KERLIX. THE PATIENT IS LETHARGIC SO I DID NOT ENCOURAGE TOO MUCH ORAL INTAKE TO PREVENT ASPIRATION. THE DAUGHTER WAS HER FOR SEVERAL HOURS AND WAS GIVEN AN UP TO DATE SUMMARY OF HER MOTHERS CONDITION. TOMORROW THE DAUGHTER WOULD LIKE TO STAY AND FEED HER MOTHER UNTIL AFTER DINNER HOURS, I TOLD HER WE COULD TRY TO GET PER [place]. THE PATIENT HAS HAD A GREAT BLOOD PRESSURE TODAY BUT THIS EVENING HER PRESSURE HAS BEGUN TO FALL TO BELOW 100 SYSTOLIC AND 55 SYSTOLIC. WILL ENCOURAGE THE NEXT SHIFT TO KEEP HER AWARE OF HER SURROUNDINGS BECAUSE SHE WAS CONFUSED THIS AFTERNOON AFTER WAKING FROM SLEEP AND HAD TO BE ORIENTED TO THE ROOM.
[2019-08-28 20:38] LABS: ANION GAP 17.4 mmol/L (8-16); CREATININE, SERUM 2.25 mg/dL (0.57-1.11); POTASSIUM 3.4 mmol/L (3.5-5.1)
--- NOTE | 2019-08-28 20:43 | NUR ---
PATIENT BMP CAME BACK WITH POTASSIUM 3.4 PER PROTOCOL ADMINISTERING ORDERED 20MEQ KCL IV TO REPLACE, STOPPED INSULIN DRIP DUE TO BS 89 LAST CHECK AND INCREASED IV D5 1/2NS FROM 50ML/HR TO 100ML/HR PER PROTOCOL. PT RESTING COMFORTABLY IN BED AT THIS TIME. WILL CONTINUE TO MONITOR.
--- NOTE | 2019-08-28 21:51 | NUR ---
PATIENT BLOOD GLUCOSE AT 77, LEAVING INSULIN DRIP OFF BEFORE BUT INCREASING IV D5 1/2NS FROM 100 ML/HR TO 150ML/HR. WILL RECHECK PER PROTOCOL IN 1 HOUR.
[2019-08-29] VITALS (11 sets, daily range): BP systolic 98–127; BP diastolic 48–96
[2019-08-29] MEDS: INSULIN REGULAR, HUMAN 3ML VL 100 UNIT in SODIUM CHLORIDE 0.9% 100 ML IV SCH ×2 (00:21)
[2019-08-29 01:40] LABS: ANION GAP 18.4 mmol/L (8-16); CALCIUM 7.9 mg/dL (8.4-10.2); CREATININE, SERUM 2.25 mg/dL (0.57-1.11); POTASSIUM 4.4 mmol/L (3.5-5.1)
[2019-08-29] MEDS: DEXTROSE 5%/0.45% SOD CHL 1,000 ML IV SCH ×2 (04:18→05:55)
[2019-08-29 04:32] LABS: BASOPHILS # (AUTO) 0.1 (0.0-0.1); BASOPHILS % 0.5 % (0.0-1.0); EOSINOPHILS % 0.1 % (0.0-6.0); HEMATOCRIT 27.6 % (34.2-44.1); HEMOGLOBIN 8.9 g/dL (12.0-16.0); LYMPHOCYTES # (AUTO) 0.6 (1.0-3.2); LYMPHOCYTES % 3.7 % (18.0-39.1); MEAN CORPUSCULAR HGB CONC 32.2 g/dL (31-35); MEAN CORPUSCULAR VOLUME 102.2 fL (81-99); MONOCYTES # (AUTO) 0.6 (0.2-0.8); NEUTROPHILS # (AUTO) 12.9 (2.1-6.9); NEUTROPHILS % 85.5 % (38.7-80.0); PLATELET COUNT 286 x10e3/uL (140-360)
[2019-08-29 04:50] LABS: ALBUMIN 1.3 g/dL (3.5-5.0); ALBUMIN/GLOBULIN RATIO 0.3 (0.8-2.0); ANION GAP 16.3 mmol/L (8-16); CALCIUM 7.8 mg/dL (8.4-10.2); CREATININE, SERUM 2.26 mg/dL (0.57-1.11); MAGNESIUM 1.9 MG/DL (1.3-2.1); POTASSIUM 4.3 mmol/L (3.5-5.1)
[2019-08-29] MEDS: LEVOTHYROXINE SODIUM 50 MCG TAB PO SCH (06:00)
--- NOTE | 2019-08-29 07:00 | NUR ---
received patient lethargic and not able to follow commands, patient opened eyes but quickly feel asleep, unable to administer medications due to AMS and risk of aspiration, will continue to monitor.
[2019-08-29] MEDS ORDERED: DEXTROSE 50% SYRINGE 50 ML IV PRN (07:30)
[2019-08-29] MEDS: INSULIN LISPRO 100 UNIT/1 ML 3ML VIAL SQ SCH ×4 (07:30→20:23)
[2019-08-29] MEDS: LISINOPRIL 20 MG TAB PO SCH (09:00)
[2019-08-29] MEDS: AMIODARONE HCL 200 MG TAB PO SCH (09:00)
[2019-08-29] MEDS: GABAPENTIN 300 MG CAP PO SCH (09:00)
[2019-08-29] MEDS: PANTOPRAZOLE SOD 40 MG TABEC PO SCH (09:00)
[2019-08-29] MEDS: COLLAGENASE 5 GM TUBE TOP SCH ×2 (09:09→20:19)
[2019-08-29] MEDS: BALSAM PERU/CASTOR OIL 60 GM OINT...G. TP SCH (09:09)
[2019-08-29] MEDS: CEFTRIAXONE SOD 1 GM/NS 50 ML 50 ML IV SCH (09:17)
--- NOTE | 2019-08-29 09:55 | NUR ---
patient continues to show no improvement in mental status, informed DR. Knapp about increased lethargy and confusion, orders received for STAT lactic acid, ammonia level and chest x ray, notified at this time of low bp and orders received for NS 500 cc bolus, will continue to monitor
[2019-08-29] MEDS ORDERED: SODIUM CHLORIDE 0.9% 1000ML 500 ML IV ONE ×2 (10:15→12:00)
--- NOTE | 2019-08-29 10:45 | NUR ---
call placed to daughter Jeny and updated on patients condition and need for restraints due to combative behavior and risk of injury to self, all questions answered, will continue to monitor
--- NOTE | 2019-08-29 11:46 | Diagnostic Imaging Report ---
EXAMINATION: CHEST SINGLE (PORTABLE) INDICATION: AMS COMPARISON: Chest radiograph 08-25-2019. FINDINGS: TUBES and LINES: Right IJ central venous catheter terminates in the right atrium. Left-sided AICD with leads in unchanged position. LUNGS: Low lung volumes with bibasilar opacities. Linear opacity overlies the right lower lung, which may represent atelectasis or scarring. PLEURA: No pleural effusion or pneumothorax. HEART AND MEDIASTINUM: The cardiomediastinal silhouette is unremarkable. There are atherosclerotic calcifications within the aorta. BONES AND SOFT TISSUES: No acute osseous abnormality. Cervical spine fixation hardware. Vertebral augmentation cement overlying the lower thoracic spine. UPPER ABDOMEN: No free air under the diaphragm. IMPRESSION: Low lung volumes with bibasilar opacities, likely atelectasis, although infection is possible in the appropriate clinical setting. Signed by: Dr. Nahomy Bardales MD on 08/29/2019 11:42 AM
[2019-08-29] MEDS: SODIUM CHLORIDE 0.9% 1000ML 1,000 ML IV SCH (12:44)
--- NOTE | 2019-08-29 15:10 | Progress Note ---
DATE: SUBJECTIVE: The patient has increased confusion today. She is not having fever. She has no nausea or vomiting. There is no diarrhea. PHYSICAL EXAMINATION: VITAL SIGNS: The patient is afebrile. The blood pressure is 109/67, saturation is 100%, and the pulse is 100. HEENT: Shows no facial swelling or erythema. CARDIAC: Reveals regular rate and rhythm with normal S1 and S2. LUNGS: Auscultation of lungs reveals clear breath sounds bilaterally. There is no wheezing. ABDOMEN: Soft and nontender. There is no rebound or guarding. EXTREMITIES: Shows no leg edema or calf tenderness. There is no cyanosis or clubbing. SKIN: Shows no rashes. LABORATORY DATA: Ammonia is normal. Blood sugars 193. The creatinine is 2.26 and the carbon dioxide is 15. The sodium is 134. Albumin is 1.3. White blood cell count is 15.1 and the hemoglobin is 8.9. RADIOGRAPHIC DATA: Chest x-ray shows low lung volumes and some bibasilar opacity. IMPRESSION: 1. Strep bacteremia and possible osteomyelitis with sepsis, present on admission. 2. Escherichia coli urinary tract infection. 3. Chronic renal failure, stage 3. 4. Metabolic encephalopathy. 5. Anemia. 6. Chronic diastolic heart failure. PLAN: 1. Review medications for any medicines, which may be worsening encephalopathy. 2. Continue current antibiotics. 3. Hold pain medications. 4. Continue wound care. Augusto Roberts MD [facility]/MODL /[id number]
[2019-08-29] MEDS ORDERED: VANCOMYCIN 1GM/NS 250 ML 250 ML IV SCH (17:00)
[2019-08-29] MEDS ORDERED: HALOPERIDOL LACTATE 5 MG/ML VIAL IV NR (17:00)
[2019-08-29] MEDS ORDERED: CEFEPIME 1GM/NS 0.9% 50 ML 50 ML IV SCH (17:00)
--- NOTE | 2019-08-29 19:57 | NUR ---
CALLED DR. ELIZABETH TO NOTIFY OF PATIENTS CHANGE TO ICU STATUS AND AMS WITH CHANGES ALONG WITH CURRENT ANTIBIOTIC REGIMEN, NOTIFIED HIM THAT SHE IS POST I&D ON 08/27 AND THAT CULTURES SHOW SUSCEPTIBLE TO AMPICILLIN AND PENICILLIN. HE STATES TO D/C CEFEPIME AND ONLY GIVE ONE DOSE VANCOMYCIN (CURRENTLY IN PROCESS) THEN START ROCEPHIN 2GM Q12H AND CHECK FOR VANCO LEVEL 08/29. COMPLETED CHANGES AND WILL CONTINUE TO MONITOR.
[2019-08-29] MEDS: CEFTRIAXONE SOD 2 GM/NS 100 ML 100 ML IV SCH (20:19)
[2019-08-29 21:07] LABS: CLARITY,URINE CLEAR (CLEAR); COLOR,URINE YELLOW (YELLOW)
[2019-08-29 21:08] LABS: LEUKOCYTE ESTERASE ,URINE TRACE (NEGATIVE); NITRITE,URINE NEGATIVE (NEGATIVE); PROTEIN,URINE DIPSTICK 1+ (NEGATIVE)
[2019-08-29 21:09] LABS: BILIRUBIN,URINE NEGATIVE (NEGATIVE); KETONES,URINE NEGATIVE (NEGATIVE); URINE UROBILINOGEN 0.2 mg/dL (0.2 - 1)
[2019-08-29 21:17] LABS: BACTERIA,URINE RARE /HPF; EPITHELIAL CELLS,URINE FEW /LPF; RBC,URINE >50 /HPF (0-5); WBC,URINE (MAN) >50 /HPF (0-5)
--- NOTE | 2019-08-29 22:01 | Consultation ---
DATE OF CONSULTATION: 08/29/2019 SUBJECTIVE: The patient is seen at bedside, somewhat confused. OBJECTIVE: VITAL SIGNS: Afebrile, pulse rate 96, respirations 23, blood pressure 122/48, and O2 saturation 100%. EXTREMITIES: Medial aspect of the right ankle looking a little bit better, some granulation tissue is noted, still some necrosis noted down to bone, bone exposed medially. Ulceration to the dorsal aspect right foot looking a little bit better. There is decreased drainage upon squeezing the dorsal aspect of the right foot. X-rays were negative for any gas in the tissue, very close to bone, possible periosteal reaction consistent with osteomyelitis of the right tibia. Pedal pulses are diminished. LABORATORY DATA: Labs show white blood cell count of 2.7, hemoglobin 8.9 with a platelet count of 286. ASSESSMENT: Decreased circulatory status, diabetic neuropathy, grade 4 ulcer, possible osteo with cellulitis. PLAN: We will continue IV antibiotics such as vancomycin, Zosyn, and cefepime. We will continue local wound care, dressing was changed. We will continue Santyl followed by diluted wet-to-dry Betadine b.i.d., offloading as best as possible. Continue to follow. Prognosis guarded at this time. LANDEN Moya/ILDA /[id number]
[2019-08-30] VITALS (22 sets, daily range): BP systolic 92–125; BP diastolic 40–73
[2019-08-30] MEDS: SODIUM CHLORIDE 0.9% 1000ML 1,000 ML IV SCH ×2 (01:43→14:52)
[2019-08-30] MEDS: LEVOTHYROXINE SODIUM 50 MCG TAB PO SCH (05:12)
[2019-08-30 05:57] LABS: BASOPHILS % 0.2 % (0.0-1.0); EOSINOPHILS % 0.1 % (0.0-6.0); HEMATOCRIT 26.8 % (34.2-44.1); HEMOGLOBIN 8.4 g/dL (12.0-16.0); LYMPHOCYTES # (AUTO) 0.6 (1.0-3.2); LYMPHOCYTES % 3.4 % (18.0-39.1); MEAN CORPUSCULAR HEMOGLOBIN 32.6 pg (28-32); MEAN CORPUSCULAR HGB CONC 31.3 g/dL (31-35); MEAN CORPUSCULAR VOLUME 103.9 fL (81-99); MONOCYTES # (AUTO) 0.7 (0.2-0.8); MONOCYTES % 4.3 % (4.4-11.3); NEUTROPHILS # (AUTO) 14.3 (2.1-6.9); NEUTROPHILS % 86.3 % (38.7-80.0); PLATELET COUNT 331 x10e3/uL (140-360); RED BLOOD COUNT 2.58 x10e6/uL (3.6-5.1)
--- NOTE | 2019-08-30 06:20 | NUR ---
CALLED DR KOTHARI OFFICE TO NOTIFY OF CONSULT FOR RENAL AND SPOKE WITH [employer] SPECIALIST FOR DR KOTHARI STATES HE WILL SEE THE PT TODAY.
[2019-08-30 06:42] LABS: ALBUMIN 1.5 g/dL (3.5-5.0); ALBUMIN/GLOBULIN RATIO 0.4 (0.8-2.0); ANION GAP 17.2 mmol/L (8-16); CALCIUM 7.9 mg/dL (8.4-10.2); CREATININE, SERUM 1.95 mg/dL (0.57-1.11); MAGNESIUM 1.9 MG/DL (1.3-2.1); POTASSIUM 4.2 mmol/L (3.5-5.1)
--- NOTE | 2019-08-30 06:48 | Diagnostic Imaging Report ---
EXAMINATION: Head CT without contrast. HISTORY:Altered mental status. COMPARISON:CT brain from 06/23/2019. TECHNIQUE: Multidetector axial images were obtained from the foramen magnum to the vertex without contrast. The images were reconstructed using brain and bone algorithms. Thin section brain images were reformatted into coronal and sagittal planes. Dose modulation, iterative reconstruction, and/or weight based adjustment of the mA/kV was utilized to reduce the radiation dose to as low as reasonably achievable. Intravenous contrast: None IMAGE QUALITY: Suboptimal evaluation due to significant motion artifacts appear FINDINGS: Skull/scalp: No lytic or blastic. lesions. No surgical changes. Parenchyma: Suboptimal evaluation due to motion artifacts, despite the limitation no gross acute hemorrhage, mass or acute major vascular territorial infarct. Nonspecific bilateral frontoparietal patchy white matter hypodensity are likely related to small vessel ischemic changes. Unchanged dystrophic calcification in right superior parietal lobule without significant regional mass effect or edema represents equally of prior infection/inflammation or trauma. Arteries: No density suggestive of thrombosis. Dural sinuses: No abnormal density suggestive of thrombosis. Ventricles: No hydrocephalus or displacement. Extra-axial spaces: No abnormal density. Brain volume: Generalized age-related cerebral volume loss. Craniocervical junction: No mass, Chiari malformation, or basilar invagination. Sella: Partial empty sella. Paranasal/mastoid sinuses: Mild mucosal thickening in left sphenoid sinus. IMPRESSION: Suboptimal evaluation due to motion artifacts, despite the limitation no gross acute intracranial abnormality. Chronic findings: 1. Mild supratentorial white matter microvascular ischemic changes. 2. Dystrophic calcification in right superior parietal lobule possibly related to prior infection/inflammation or trauma. 3. Generalized age-related cerebral volume loss. Signed by: Dr. Humera Schultz M.D. on 08/30/2019 6:45 AM
[2019-08-30] MEDS: INSULIN LISPRO 100 UNIT/1 ML 3ML VIAL SQ SCH ×4 (07:30→20:14)
[2019-08-30] MEDS: BALSAM PERU/CASTOR OIL 60 GM OINT...G. TP SCH (08:24)
[2019-08-30] MEDS: PANTOPRAZOLE SOD 40 MG TABEC PO SCH (08:24)
[2019-08-30] MEDS: AMIODARONE HCL 200 MG TAB PO SCH (08:24)
[2019-08-30] MEDS: CEFTRIAXONE SOD 2 GM/NS 100 ML 100 ML IV SCH ×2 (08:28→20:02)
[2019-08-30 09:02] LABS: BAND NEUTROPHILS % (MANUAL) 1 %; EOSINOPHILS % (MANUAL) 1 % (0-7); LYMPHOCYTES % (MANUAL) 5 % (19-48); MONOCYTES % (MANUAL) 4 % (3.4-9.0); NEUTROPHILS % (MANUAL) 89 % (40-74)
[2019-08-30 09:03] LABS: PLATELET ESTIMATE ADEQUATE; PLATELET MORPHOLOGY COMMENT NORMAL; RBC MORPHOLOGY COMMENT NORMAL
[2019-08-30] MEDS ORDERED: HALOPERIDOL LACTATE 5 MG/ML VIAL IM NR (10:15)
--- NOTE | 2019-08-30 11:17 | Progress Note ---
DATE: SUBJECTIVE: The patient had more confusion yesterday. She had a CT scan of her brain that showed no active disease. She did have some dystrophic calcification of the right superior parietal lobe, possibly related to prior trauma. She received Haldol, but still remains somewhat confused. PHYSICAL EXAMINATION: VITAL SIGNS: The blood pressure is 108/56, saturation is 100% and the pulse is 105. Respiratory rate is 17. HEENT: No facial swelling or erythema. CARDIAC: Regular rate and rhythm with normal S1, S2. There are no murmurs or rubs heard. LUNGS: Auscultation of lungs reveals clear breath sounds bilaterally. There is no wheezing. ABDOMEN: Soft, nontender. There is no rebound or guarding. EXTREMITIES: No leg edema or calf tenderness. There is no cyanosis or clubbing. LABORATORY DATA: White blood cell count is 16.6 and hemoglobin is 8.4. The platelet count is 331. The BUN to creatinine ratio is 63 to 1.95. The carbon dioxide is 12 with chloride of 13. Anion gap is 17. Albumin is 1.5. IMPRESSION: 1. Metabolic encephalopathy. 2. Streptococcus bacteremia and possible osteomyelitis with sepsis, present on admission. 3. Escherichia coli urinary tract infection. 4. Chronic renal failure, stage 3. 5. Anemia. 6. Chronic diastolic heart failure. PLAN: 1. Continue current antibiotics. 2. Continue wound care. 3. Low-dose Haldol intermittently for agitation. 4. Continue to hold Brady and Neurontin, which could be contributing to agitation. 5. Continue to monitor renal function and electrolytes. Augusto Roberts MD [facility]/MODL /[id number]
--- NOTE | 2019-08-30 18:14 | NUR ---
informed dr negro vanc trough 35.7, orders received and entered
[2019-08-30] MEDS ORDERED: SODIUM BICARBONATE 8.4% INJ 50 ML SYR IV STA (18:47)
--- NOTE | 2019-08-30 22:55 | Progress Note ---
DATE: 08/30/2019 SUBJECTIVE: The patient is seen at bedside, accompanied by nurse, somewhat confused. OBJECTIVE: VITAL SIGNS: Temperature 97.8, pulse rate 99, respirations 16, blood pressure 118/61, and O2 saturation 100%. LABORATORY DATA: White blood cell count ongoing up to 16.59, hemoglobin 8.4 with a platelet count of 331. INR of 1.76. Blood glucose of 173. Has multiple ulcerations to the right lower extremity overlying the dorsal aspect of the right foot measuring 2.5 to 3 cm in diameter. Some necrosis noted and some purulent drainage. Has drainage to the medial ulceration to the talotibial joint with the tibia medial malleolus somewhat exposed, severe black drainage noted with minimal to no foul smell. Culture and sensitivity report were positive for strep agalactiae group B. ASSESSMENT: Osteomyelitis with decreased circulatory status to both the DP and PT with grade 4 and grade 3 ulcers with cellulitis. PLAN: Sharp excisional debridement of the ulcer was carried down to bone, medial aspect of the right talotibial joint and down to tendon to the dorsal aspect of the right foot. Necrotic tissue removed. Some bleeding tissue achieved. Still draining pus to the dorsal aspect of the right lower extremity. Sterile dressing was applied with Santyl followed by diluted wet-to-dry Betadine. We will continue IV antibiotics such as ceftriaxone IV. Prognosis guarded. If not responsive, the patient may end up losing her leg. LANDEN Moya/ILDA /[id number]
[2019-08-31] VITALS (8 sets, daily range): BP systolic 106–133; BP diastolic 57–98
--- NOTE | 2019-08-31 02:07 | NUR ---
BLOOD CULTURES DRAWN ON 06/28 RESULTED IN COMPUTER SHOWING NO GROWTH, URINE SAMPLE WAS SENT FOR CULTURE WELL PER DR PARKINSON. CALLED LAB TO SEE WHY NO PRELIMINARY URINE CULTURE RESULTS ARE SHOWING AND WAS TOLD THAT THEY DIDN'T SEND IT TO CULTURE THEY JUST DID AN ANALYSIS BECAUSE CULTURE WASN'T ORDERED AND STATED WOULD HAVE TO GET ANOTHER SAMPLE TO CULTURE. ANALYSIS SHOWS CULTURE NEEDED SO ORDERED AND SENT ANOTHER URINE FOR CULTURE. WILL CONT TO MONITOR PATIENT.
--- NOTE | 2019-08-31 02:20 | Consultation ---
DATE OF CONSULTATION: 08/30/2019 Renal Consultation Note: CONSULT REQUESTED BY: Allan Knapp MD REASON FOR CONSULTATION: 1. Elevated serum creatinine. 2. Fluid, electrolyte, and acid-base management. 3. Acidosis. HISTORY OF PRESENT ILLNESS: This is a 79-year-old female with history of: 1. Diabetes mellitus. 2. Hypertension. 3. Chronic kidney disease. 4. Congestive heart failure. 5. Hypothyroidism. 6. Atrial fibrillation. 7. Rib fracture. The patient was admitted to [facility] for confusion, hyperglycemia, and DKA. Nephrology consultation has been requested for elevated serum creatinine, fluid, electrolyte, and acid-base management. Her serum creatinine level on admission was 2.9, which has improved to 1.9 today. Serum bicarbonate level today is 12 with anion gap of 17. The patient is currently encephalopathic, and is unable to provide any history or review of systems. All history is per chart review and from the patient's nurse. She is currently on IV fluids. Swelling per report. No report of chest pain, shortness of breath, nausea, vomiting, diarrhea, fever, or seizures. PAST MEDICAL HISTORY: As per HPI. PAST SURGICAL HISTORY: As per HPI. ALLERGIES: TO MEDICATIONS, PER MAR. SOCIAL HISTORY: Negative x 3 . FAMILY HISTORY: Negative for kidney disease. REVIEW OF SYSTEMS: Unobtainable as the patient is presently encephalopathic. PHYSICAL EXAMINATION: GENERAL: The patient in bed, in no acute respiratory distress. VITAL SIGNS: Blood pressure is 109/60, pulse is 97, respiratory rate 13, input and output noted. HEENT: Head atraumatic, normocephalic. NECK: Supple. LUNGS: Few diffuse rhonchi. CARDIOVASCULAR: S1, S2 heard. ABDOMEN: Soft. EXTREMITIES: Positive edema. NEUROLOGIC: Encephalopathic. PSYCHIATRIC: Anxious. GENITOURINARY: Herbert catheter in place. LABORATORY DATA: Serum sodium is 138, potassium 4.2, chloride 113, bicarbonate 12, BUN is 63, creatinine is 1.9, calcium is 7.9, magnesium 1.9, albumin is 1.5, blood sugar 99, lactic acid was 0.8. IMAGING DATA: Chest x-ray and CT abdomen findings noted. ASSESSMENT: 1. Acute kidney injury on chronic kidney disease. 2. Fluid overload. 3. Hyponatremia-improved. 4. Acidosis. 5. Anemia. 6. Urinary tract infection. 7. Sepsis. 8. Encephalopathy. PLAN: 1. Renal function is improving with serum Cr at 1.9 today from 2.9 on admission. Will continue to monitor renal indices and UOP. 2. Decrease IVF + /- IV Lasix as needed for fluid overload. 3. Serum electrolytes are stable. Monitor. 4. Alkali treatment with Sodium bicarbonate for acidosis + check serum ketones. Serum lactic acid level was okay. 6. Monitor serum calcium, phosphorus, and magnesium levels. 7. Monitor H and H levels. 8. Antibiotics per primary team/Infectious Diseases. 9. Renally dose all medications. 10. Strict I's and O's and daily weights. 11. Avoid NSAIDs except aspirin. 12. No ANNE inhibitor/ARB for now. 13. Monitor blood pressure. 14. Presently, there is no acute indication for hemodialysis. We will continue to closely monitor her renal function, renal status, serum electrolytes, urine output, and acid-base status. 15. Plan discussed with the patient's nurse. Thank you for the interesting consult. We will continue to closely follow the patient with you. Please do not hesitate to call for any further questions. MD CHERYL Napoles/ILDA /[id number] MTDD
[2019-08-31 02:22] LABS: CLARITY,URINE CLOUDY (CLEAR); COLOR,URINE AMBER (YELLOW); LEUKOCYTE ESTERASE ,URINE 1+ (NEGATIVE); NITRITE,URINE NEGATIVE (NEGATIVE); PROTEIN,URINE DIPSTICK 2+ (NEGATIVE)
[2019-08-31 02:23] LABS: BILIRUBIN,URINE NEGATIVE (NEGATIVE); KETONES,URINE 1+ (NEGATIVE); URINE UROBILINOGEN 0.2 mg/dL (0.2 - 1)
[2019-08-31 02:35] LABS: BACTERIA,URINE MANY /HPF; EPITHELIAL CELLS,URINE FEW /LPF; MUCUS,URINE FEW (RARE); RBC,URINE >50 /HPF (0-5); WBC,URINE (MAN) >50 /HPF (0-5); YEAST,URINE MANY
[2019-08-31 04:15] LABS: BASOPHILS # (AUTO) 0.1 (0.0-0.1); BASOPHILS % 0.3 % (0.0-1.0); HEMATOCRIT 25.6 % (34.2-44.1); HEMOGLOBIN 7.8 g/dL (12.0-16.0); LYMPHOCYTES # (AUTO) 0.5 (1.0-3.2); LYMPHOCYTES % 2.6 % (18.0-39.1); MEAN CORPUSCULAR HGB CONC 30.5 g/dL (31-35); MEAN CORPUSCULAR VOLUME 104.9 fL (81-99); MONOCYTES # (AUTO) 0.7 (0.2-0.8); MONOCYTES % 3.6 % (4.4-11.3); NEUTROPHILS # (AUTO) 16.6 (2.1-6.9); NEUTROPHILS % 88.5 % (38.7-80.0); PLATELET COUNT 393 x10e3/uL (140-360); RED BLOOD COUNT 2.44 x10e6/uL (3.6-5.1); RED CELL DISTRIBUTION WIDTH 15.4 % (11.7-14.4)
[2019-08-31 04:35] LABS: ALBUMIN 1.5 g/dL (3.5-5.0); ALBUMIN/GLOBULIN RATIO 0.4 (0.8-2.0); ANION GAP 22.7 mmol/L (8-16); CALCIUM 8.4 mg/dL (8.4-10.2); CREATININE, SERUM 2.03 mg/dL (0.57-1.11); POTASSIUM 4.7 mmol/L (3.5-5.1)
--- NOTE | 2019-08-31 04:46 | NUR ---
NOTIFIED DR STEPHENS OF PT CO2 LEVEL THIS AM OF 9. PT GOT BICARB IV 08/29 AND IS ORDERED TO START PO BICARB TODAY AT 0900 PER PREVIOUS ORDER OF DR. LINARES. DR. STEPHENS ADDED LACTIC TO AM LABS.
--- NOTE | 2019-08-31 05:29 | NUR ---
DR STEPHENS ORDERED CARDIO CONSULT WITH DR MAXIMO WANG FOR PERIPHERAL ARTERIAL DISEASE, CALLED AND LEFT MESSAGE WITH ECHO TECHNICIAN PROVIDER DR RENTERIA. AWAITING CALL BACK.
--- NOTE | 2019-08-31 05:35 | NUR ---
CALLED TO NOTIFY RENAL, DR KOTHARI, OF PATIENTS CO2 LEVEL OF 9. AWAITING CALL BACK.
[2019-08-31] MEDS: LEVOTHYROXINE SODIUM 50 MCG TAB PO SCH (05:41)
[2019-08-31 06:40] LABS: PHOSPHORUS 6.9 MG/DL (2.3-4.7)
[2019-08-31] MEDS: INSULIN LISPRO 100 UNIT/1 ML 3ML VIAL SQ SCH ×4 (07:30→16:30)
--- NOTE | 2019-08-31 07:54 | NUR ---
CO2 9. BP 70/[address] Corinne Roberts. Fluid bolus now. Abg called to Orestes alcazar.
[2019-08-31] MEDS ORDERED: SODIUM CHLORIDE 0.9% 1000ML 500 ML IV ONE (08:00)
[2019-08-31] MEDS: CEFTRIAXONE SOD 2 GM/NS 100 ML 100 ML IV SCH ×2 (08:59→21:00)
[2019-08-31] MEDS: PANTOPRAZOLE SOD 40 MG TABEC PO SCH (08:59)
[2019-08-31] MEDS: AMIODARONE HCL 200 MG TAB PO SCH (08:59)
[2019-08-31] MEDS: SODIUM BICARBONATE 650 MG TAB PO SCH ×2 (08:59→17:00)
[2019-08-31] MEDS: BALSAM PERU/CASTOR OIL 60 GM OINT...G. TP SCH (09:01)
--- NOTE | 2019-08-31 09:41 | Progress Note ---
DATE: SUBJECTIVE: The patient had some low blood pressure this morning with a systolic of 70. The patient received an IV fluid bolus and her systolic blood pressure is improved to 110. She still has some confusion. She is not having fevers. PHYSICAL EXAMINATION: VITAL SIGNS: The blood pressure is 122/97, saturation is 100% and the pulse is 101. Respiratory rate is 13. HEENT: Shows no facial swelling or erythema. CARDIAC: Reveals regular rate and rhythm with normal S1, S2. LUNGS: Auscultation of lungs reveals decreased breath sounds at the bases. There is no wheezing. ABDOMEN: Soft and nontender. There is no rebound or guarding. EXTREMITIES: Show no leg edema or calf tenderness. There is no cyanosis or clubbing. SKIN: Shows no rashes. LABORATORY DATA: The BUN to creatinine ratio is 63 to 2.03 and the carbon dioxide is 9 with a chloride of 115. The albumin is 1.5. The white blood cell count is 18.7 and hemoglobin is 7.8. The platelet count is 393. IMPRESSION: 1. Acute on chronic kidney injury. 2. Metabolic encephalopathy. 3. Strep bacteremia and sepsis, secondary to osteomyelitis, present on admission. 4. Escherichia coli urinary tract infection. PLAN: 1. Limited additional fluid. 2. Await repeat ABG. 3. Continue current antibiotics. 4. Continue to follow recommendations of Nephrology. 5. Continue Haldol as needed. 6. Serum bicarbonate. Augusto Roberts MD [facility] /[id number]
--- NOTE | 2019-08-31 10:02 | Progress Note ---
DATE: 08/31/2019 SUBJECTIVE: The patient is seen at bedside, not responsive to verbal stimuli. OBJECTIVE: VITALS: Afebrile, pulse rate 101, respirations 13, blood pressure 122/97, O2 saturations 100%. LABORATORY DATA: Labs show white blood cell count of 18.7. Necrosis to the right ankle is draining some black drainage with minimal foul smell. Has necrosis to the dorsal aspect of the right first metatarsophalangeal joint and bone and tendon exposed and also bone exposed to the medial malleolus. She has cellulitis to the dorsal aspect right foot with still some drainage upon squeezing from distal to proximal. ASSESSMENT: Cellulitis, osteomyelitis, peripheral arterial disease with multiple grade 3 and grade 4 ulcerations. PLAN: We will continue to treat conservatively with IV antibiotics and local wound care for now. We will continue to follow. If not responsive, the patient will end up needing a [id number] amputation. LANDEN Moya/ILDA /[id number]
[2019-08-31] MEDS: COLLAGENASE 5 GM TUBE TOP SCH ×2 (10:06→17:29)
[2019-08-31] MEDS: SODIUM BICARBONATE 8.4% 150 ML in DEXTROSE 5% 1,000 ML IV SCH (10:51)
--- NOTE | 2019-08-31 11:11 | Progress Note ---
DATE: SUBJECTIVE: The patient is seen and evaluated, available labs and notes reviewed. Discussed with the nurse. REVIEW OF SYSTEMS: Unable to obtain review of system from the patient however, per my discussion with the nurse, the patient was hypotensive today, status post bolus about 250 mL of fluid. The patient is seen by Renal, currently comfortable in bed, ill looking, noncompliant with medication, confused. MEDICATIONS: Medication list reviewed. From Infectious Disease point of view, the patient is on Rocephin. LABORATORY STUDIES: White count of 18.75, hemoglobin 7.8, and platelet 393. Sodium 142, potassium 4.7, and creatinine 2.03. AST 25, ALT 25, ALP 91, total bilirubin 0.2, total protein 5.7, and albumin 1.5. RADIOLOGY STUDIES: She had a CT of the brain yesterday showed mild supratentorial white matter microvascular ischemic changes with generalized age related cerebral volume loss. Her trophic calcification in the right superior parietal lobule, possibly related to prior infection/inflammation or trauma. PHYSICAL EXAMINATION: VITAL SIGNS: Temperature is 97.7, pulse is 101, respirations 13, and blood pressure 122/97. The patient remains afebrile. GENERAL: Comfortable in bed, ill looking, in acute distress. CV: S1-S2. CHEST: Equal expansion, decreased breath sounds, no acute distress. ABDOMEN: Soft, obese with positive bowel sounds. It is not tender. HEENT: Moist. No pallor. No JVD. EXTREMITIES: 2 to 3+ edema of extremities with some fluid leakage from the left upper extremity. Right foot wound with necrotic tissues. ASSESSMENT AND PLAN: 1. This is a 79-year-old female with strep agalactiae a group B bacteremia. Rechecked blood cultures negative. Urine culture showed Escherichia coli and it has a lot of options as far as its antibiotics, remains on Rocephin. 2. Diabetes. 3. Diabetic ketoacidosis. 4. Anemia. 5. Acute on chronic kidney disease. 6. Right foot wound with infection. 7. congestive heart failure. 8. Atrial fibrillation. Continue antibiotics. Monitor the patient clinically. Follow with the labs. Overall guarded prognosis. Please refer to chart for more information. Dictated by Jemal Yanez PA-C (Al) MD [facility] /[id number]
--- NOTE | 2019-08-31 11:18 | Diagnostic Imaging Report ---
EXAM: CHEST SINGLE (PORTABLE) DATE: 08/31/2019 10:21 AM INDICATION: Sepsis, renal failure COMPARISON: 08/29/2019 FINDINGS: Left-sided ACD identified in stable position. Right-sided central venous catheter terminates within the superior right atrium. The trachea is midline. Lung volumes remain low. There is stable elevation of the right hemidiaphragm. There is no evidence for new large focal consolidation, pneumothorax, or significant pleural effusion. The cardiomediastinal silhouette is stable in appearance. Cervical fusion hardware again noted. No acute osseous abnormality is identified. IMPRESSION: No acute cardiopulmonary process or significant interval change identified from 08/29/2019. Signed by: Dr. Medhat Palomo MD on 08/31/2019 11:15 AM
[2019-08-31 12:50] LABS: ABG HCO3 9 mmol/L (22-26); ABG PCO2 21 mmHg (35-45); ABG PH 7.24 (7.35-7.45); ABG PO2 104 mmHg (80-105)
[2019-08-31] MEDS ORDERED: SODIUM BICARBONATE 8.4% INJ 50 ML SYR IV ONE ×2 (13:20)
[2019-08-31 13:58] LABS: ALBUMIN 1.5 g/dL (3.5-5.0); ALBUMIN/GLOBULIN RATIO 0.4 (0.8-2.0); ANION GAP 23.7 mmol/L (8-16); CALCIUM 8.5 mg/dL (8.4-10.2); CREATININE, SERUM 2.06 mg/dL (0.57-1.11); POTASSIUM 4.7 mmol/L (3.5-5.1)
[2019-08-31] MEDS ORDERED: DEXTROSE 50% SYRINGE 50 ML IV PRN (16:15)
[2019-08-31] MEDS ORDERED: INSULIN REGULAR, HUMAN 3ML VL 100 UNIT in SODIUM CHLORIDE 0.9% 99 ML IV SCH ×2 (16:30)
[2019-08-31 16:58] LABS: FREE T4 (FREE THYROXINE) 0.69 ng/dL (0.8-1.8); THYROID STIMULATING HORMONE 2.314 uIU/mL (0.350-4.940)
--- NOTE | 2019-08-31 18:04 | Consultation ---
DATE OF CONSULTATION: 08/31/2019 Cardiology Consultation REASON FOR CONSULTATION: Peripheral arterial disease. HISTORY OF PRESENT ILLNESS: This is a 79-year-old woman with history of hypertension, diabetes mellitus, atrial fibrillation, and chronic systolic heart failure. Last LVEF 40% to 45%, who presented to the patient's medical center at the end of July with fever, chills, and altered mental status. She was found to be in diabetic ketoacidosis and admitted for further care. The patient was treated with antibiotics for E coli UTI as well as Streptococcus agalactiae group B bacteremia secondary to her right foot wound. Bilateral lower extremities arterial Doppler was performed, which suggested moderate peripheral vascular disease predominantly below the knee. Cardiology is therefore consulted for recommendations. The patient's hospital course is complicated by acute kidney injury as well as altered mental status. No history could be obtained from the patient today as she is confused. REVIEW OF SYSTEMS: Unable to obtain secondary to altered mental status. PAST MEDICAL HISTORY: 1. Chronic systolic heart failure. 2. Coronary artery disease. 3. Chronic systolic heart failure, status post BiV ICD. 4. Coronary artery disease. 5. Atrial fibrillation. 6. Hypertension. 7. Diabetes mellitus. 8. Hypothyroidism. PAST SURGICAL HISTORY: 1. Hysterectomy. 2. Cervical fusion. ALLERGIES: PLEASE SEE EMR. MEDICATIONS: Please see medication list. SOCIAL HISTORY: No smoking or drinking reported. FAMILY HISTORY: Noncontributory to current illness. PHYSICAL EXAMINATION: GENERAL: Chronically ill-appearing elderly woman, confused, awake, but not interactive. HEENT: Normocephalic, atraumatic. Pupils equal. No scleral icterus. NECK: Supple. No thyromegaly or cervical lymphadenopathy. No carotid bruits. LUNGS: Clear to auscultation bilaterally. No wheezes or crackles. CARDIOVASCULAR: Normal rate, regular rhythm. No murmur. Normal S1, S2. ABDOMEN: Soft, nontender. EXTREMITIES: No edema. Dressing is present on the right. NEURO: Unable to assess due to altered mental status. LABORATORY DATA: WBC 18.75, hemoglobin 7.8, hematocrit 25.6, platelets 393. Sodium 143, potassium 4.7, chloride 115, CO2 9, BUN , and creatinine 2.06. TELEMETRY: Personally reviewed revealing ventricular paced rhythm with PVCs. IMPRESSION: 1. Streptococcus agalactiae group B bacteremia. 2. Right foot wound. 3. Diabetic ketoacidosis. 4. Acute on chronic kidney disease. 5. Altered mental status, suspect metabolic encephalopathy. 6. Escherichia coli urinary tract infection. 7. Peripheral arterial disease suggested by noninvasive Doppler evaluation. 8. Chronic systolic heart failure. 9. Paroxysmal atrial fibrillation. RECOMMENDATIONS: Continue supportive care. Continue the patient on amiodarone and monitor on telemetry. Continue Eliquis if no procedures are planned. We will restart atorvastatin. Hold antihypertensive therapy given blood pressure is acceptable and the patient is septic. Monitor volume status closely. If respiratory status worsens, may need IV Lasix at that time to maintain the patient's net even, however, would recommend fluid resuscitation as the patient is currently septic. Continue antibiotics per Infectious Disease. Wound care per Podiatry. No plan for peripheral angiogram given the patient's current clinical condition, could consider further evaluation once mental status improves and patient's infection has resolved. Thank you for this consult. We will continue to follow. Ruth Joseph MD ABS/MODL /[id number]
[2019-08-31] MEDS: HYDROCORTISONE SOD SUCCINATE 100 MG VIAL IV SCH (18:57)
--- NOTE | 2019-08-31 20:01 | NUR ---
Received pt in bed awake with daughter at bedside. Pt alert, no s/sx of distress noted, denies discomfort. Assisted up to bathroom and back to bed. Taking and making jokes with staff. Chest tube to left intact, bed alarm in place, bed in low position and personal items and call light in place. Will cont to mon
[2019-09-01] VITALS (11 sets, daily range): BP systolic 99–168; BP diastolic 55–96
[2019-09-01] MEDS: SODIUM BICARBONATE 8.4% 150 ML in DEXTROSE 5% 1,000 ML IV SCH (01:49)
[2019-09-01] MEDS: HYDROCORTISONE SOD SUCCINATE 100 MG VIAL IV SCH ×2 (02:19→10:02)
[2019-09-01 05:55] LABS: BASOPHILS # (AUTO) 0.1 (0.0-0.1); BASOPHILS % 0.3 % (0.0-1.0); HEMATOCRIT 23.6 % (34.2-44.1); HEMOGLOBIN 7.5 g/dL (12.0-16.0); LYMPHOCYTES # (AUTO) 0.4 (1.0-3.2); LYMPHOCYTES % 2.5 % (18.0-39.1); MEAN CORPUSCULAR HEMOGLOBIN 31.8 pg (28-32); MEAN CORPUSCULAR HGB CONC 31.8 g/dL (31-35); MONOCYTES # (AUTO) 0.5 (0.2-0.8); MONOCYTES % 2.9 % (4.4-11.3); NEUTROPHILS % 92.1 % (38.7-80.0); PLATELET COUNT 462 x10e3/uL (140-360); RED BLOOD COUNT 2.36 x10e6/uL (3.6-5.1); RED CELL DISTRIBUTION WIDTH 15.3 % (11.7-14.4)
[2019-09-01] MEDS: LEVOTHYROXINE SODIUM 50 MCG TAB PO SCH (06:00)
[2019-09-01 06:38] LABS: ALBUMIN 1.4 g/dL (3.5-5.0); ALBUMIN/GLOBULIN RATIO 0.4 (0.8-2.0); ANION GAP 17.3 mmol/L (8-16); CREATININE, SERUM 1.94 mg/dL (0.57-1.11); MAGNESIUM 1.9 MG/DL (1.3-2.1); POTASSIUM 3.3 mmol/L (3.5-5.1)
--- NOTE | 2019-09-01 08:12 | Progress Note ---
DATE: 09/01/2019 SUBJECTIVE: The patient is seen at bedside. Still out of it as far as not reactive to the verbal stimuli. OBJECTIVE: VITAL SIGNS: Afebrile. Pulse rate 95, respirations 17, blood pressure 110/55, and O2 saturation 99%. LABORATORY DATA: Labs show white blood cell count dropping from 18 to 17.38. Right foot ulcerations stable for now. Some necrosis to the dorsal aspect of the 1st metatarsophalangeal joint and medial aspect of the right ankle with bone exposed, some drainage, but negative foul smell, decreased cellulitis present, and pedal pulses diminished. ASSESSMENT: Osteomyelitis with multiple grade 4 ulcerations with cellulitis. PLAN: We will continue IV antibiotics. Continue local wound care. Continue offloading. We will continue to follow. Prognosis guarded. LANDEN Moya/ILDA /[id number]
[2019-09-01] MEDS ORDERED: POTASSIUM CHLORIDE 20MEQ/100ML 100 ML IV ONE (08:45)
[2019-09-01] MEDS ORDERED: DEXTROSE 5% 1,000 ML IV ONE (08:45)
[2019-09-01] MEDS: SODIUM BICARBONATE 650 MG TAB PO SCH ×2 (09:00→15:58)
[2019-09-01] MEDS: AMIODARONE HCL 200 MG TAB PO SCH (09:00)
[2019-09-01] MEDS: PANTOPRAZOLE SOD 40 MG TABEC PO SCH (09:00)
[2019-09-01] MEDS: COLLAGENASE 5 GM TUBE TOP SCH ×2 (09:12→17:00)
[2019-09-01] MEDS: CEFTRIAXONE SOD 2 GM/NS 100 ML 100 ML IV SCH (09:20)
--- NOTE | 2019-09-01 09:53 | NUR ---
Dr. Orestes Bill rounding to see patient made aware I held Amiodarone 200mg PO patient due altered mental status, and is unable to swallow, at this time. I informed Dr. Joseph patient is paced hr ranging 80-90 received orders to continue monitoring patient.
[2019-09-01] MEDS: BALSAM PERU/CASTOR OIL 60 GM OINT...G. TP SCH (10:03)
--- NOTE | 2019-09-01 11:28 | NUR ---
Called DR. Knapp and made aware I did not give Protonix 40 mg PO patient altered mental status, received orders to change Protonix to IV, and also to j switch her Synthroid to IV. I also asked him if he he would like to order a palliative consult no new orders received.
--- NOTE | 2019-09-01 11:54 | NUR ---
discussed with family discussed with attending still confused sepsis resolved neuro w/u
--- NOTE | 2019-09-01 12:43 | Progress Note ---
DATE: SUBJECTIVE: The patient is seen and evaluated with the nurse in her room. Available labs and notes reviewed. The patient off bicarb drip and fluid adjusted by Renal. Per my discussion with the nurse, potassium given for hyperkalemia. REVIEW OF SYSTEMS: The patient is comfortable in bed. No interaction with me. I am unable to obtain review of systems secondary to patient's medical condition. PHYSICAL EXAMINATION: VITAL SIGNS: Temperature is 97.4, pulse 89, respiration 14, blood pressure 114/64. GENERAL: Comfortable in bed, no interaction with me. CV: S1-S2. CHEST: Equal expansion. Decreased breath sounds. No acute distress. ABDOMEN: Soft, obese. Positive bowel sounds. HEENT: Moist. No pallor. No JVD. EXTREMITIES: Multiple ulcers and ecchymosis with 3+ edema. Some fluid leakage from upper extremities. Wounds on local care. MEDICATIONS: Medication list reviewed. From Infectious Disease point of view patient is on Rocephin. LABORATORY STUDIES: Sodium 149, potassium 3.3, creatinine 1.94, slowly improving. Serology; coronavirus PCR on 08/23 is not detected. Toxicology; vancomycin random .7. MICROBIOLOGY: Recheck blood culture on 08/29 is negative 48 hours. Urine culture is pending. Previous urine culture was showing E coli. Wound culture showed strep agalactiae. Previous blood culture was positive for strep agalactiae group B. RADIOLOGY STUDIES: No new radiology studies available. Chest x-ray from yesterday showed no acute cardiopulmonary process or significant interval change from 08/29/2019. ASSESSMENT AND PLAN: 1. A 79-year-old female with strep agalactiae, group B bacteremia. 2. Urinary tract infection with Escherichia coli. 3. Diabetes. 4. Diabetic ketoacidosis. 5. Acute on chronic kidney disease with elevated vancomycin trough. 6. Anemia. 7. Electrolyte abnormalities. 8. Right foot wound with infection on local care. 9. Atrial fibrillation. 10. Congestive heart failure. 11. Continue with antibiotics/Rocephin. Correct electrolytes. Recheck blood culture, negative 48 hours. Follow with the urine culture recheck. Continue with wound care. Overall guarded prognosis. Overall very ill. Discussed with Dr. Barreto in details. Discussed with the nurse. Please refer to chart for more information. Thank you for this dictation. Dictated by SALBADOR Resendiz (Al)C MD LISA Leo/ILDA /[id number]
--- NOTE | 2019-09-01 14:30 | NUR ---
Dr. Franca saldaña made aware glucose at 12:06 was 104 received orders to decrease insulin to 1 unit per hour.
--- NOTE | 2019-09-01 15:11 | Diagnostic Imaging Report ---
Examination: CT head without contrast Clinical Indication: Confusion. Altered mental status. Technique: Transaxial noncontrast images from the skull base through the vertex were obtained. Sagittal and coronal reformatted images were done. Dose modulation, iterative reconstruction, and/or weight based adjustment of the mA/kV was utilized to reduce the radiation dose to as low as reasonably achievable. Comparison: Head CT performed August 30, 2019. Findings: Scalp: No abnormalities. Bones: Intact. No fractures. No blastic or lytic lesions. Brain sulci: Generalized volume loss for patient's age. Ventricles: No hydrocephalus. Extra-axial space: No abnormalities. Parenchyma: Again demonstrated are confluent areas of low-attenuation within subcortical and periventricular white matter, nonspecific, but could represent microvascular ischemic disease. Dystrophic calcifications identified in the right superior parietal lobule and is likely the result of prior infection or inflammatory process. No masses, hemorrhage, or acute or chronic cortical based vascular insults. Suprasellar region: No abnormalities. Craniocervical junction: The foramen magnum is patent. No Chiari one malformation. Incidental findings: Atherosclerotic calcification of the cavernous and supraclinoid internal carotid arteries. Impression: 1. No new or acute intracranial abnormality compared to prior head CT performed August 30, 2019. 2. Unchanged chronic microvascular ischemic change and volume loss. Signed by: Dr. Deborah Ramey M.D. on 09/01/2019 3:07 PM
[2019-09-01] MEDS: PANTOPRAZOLE 40 MG 10ML VIAL IV SCH (16:09)
--- NOTE | 2019-09-01 16:10 | Progress Note ---
DATE: 09/01/2019 Cardiology Progress Note SUBJECTIVE: The patient remains confused. OBJECTIVE: VITAL SIGNS: Temperature 97.4 degrees, pulse 89, respiratory rate 14, blood pressure 114/64, oxygen saturation 99% on room air. GENERAL: Chronically ill-appearing elderly woman, confused. LUNGS: Clear to auscultation anterior lung [place]. No wheezes or crackles. CARDIOVASCULAR: Normal rate. Regular rhythm. No murmur. Normal S1 and S2. ABDOMEN: Soft and nontender. EXTREMITIES: No edema, dressing present on right. CARDIAC MEDICATIONS: 1. Levothyroxine 50 mcg p.o. daily. 2. Amiodarone 200 mg p.o. daily. LABORATORY DATA: WBC 17.38, hemoglobin 7.5, hematocrit 23.6, platelets 462. Sodium 149, potassium 3.3, chloride 113, CO2 of 22, BUN 59, and creatinine 1.94. TELEMETRY: Telemetry was personally reviewed and interpreted, revealing ventricular paced rhythm. IMPRESSION: 1. Streptococcus agalactiae group B bacteremia. 2. Right foot wound. 3. Diabetic ketoacidosis. 4. Acute on chronic kidney disease. 5. Altered mental status, suspect metabolic encephalopathy. 6. E coli urinary tract infection. 7. Peripheral arterial disease suggested by noninvasive Doppler evaluation. 8. Chronic systolic heart failure. 9. Paroxysmal atrial fibrillation. RECOMMENDATIONS: Continue supportive care. The patient is unable to take amiodarone at this time due to altered mental status. Monitor the patient closely on telemetry. If necessary, can start IV metoprolol as needed for rate control. If no procedures are planned, recommend resuming anticoagulation. Blood pressure is currently acceptable, off antihypertensive therapy. Monitor closely. Antibiotics per Infectious Disease. Wound care per Podiatry. No plan for peripheral angiogram at this time given the patient's current clinical condition. Could consider further evaluation once mental status improves and the patient's infection has resolved. Thank you for this consult. We will continue to follow. Ruth Joseph MD ABS/MODL /[id number]
--- NOTE | 2019-09-01 16:45 | Progress Note ---
DATE: SUBJECTIVE: The patient continues to have some disorientation and agitation. The patient was seen by Nephrology. The bicarb drip was weaned off. The production roustabout believes the patient has DKA related to her inhibitors. PHYSICAL EXAMINATION: VITAL SIGNS: The blood pressure is 114/64 and saturation is 99%. The pulse is 89. HEENT: Shows no facial swelling or erythema. CARDIAC: Reveals regular rate and rhythm with normal S1 and S2. LUNGS: Auscultation of lungs reveals decreased breath sounds at the bases. There is no wheezing. ABDOMEN: Soft and nontender. There is no rebound or guarding. EXTREMITIES: Shows no leg edema or calf tenderness. There is some confusion. LABORATORY DATA: White blood cell count is 17.3 and the hemoglobin is 7.5. The platelet count is 462. BUN to creatinine ratio is 59 to 1.94. Potassium is 3.3. RADIOGRAPHIC DATA: Chest x-ray shows no active disease. IMPRESSION: 1. Metabolic encephalopathy. 2. Diabetic ketoacidosis. 3. [id number] renal failure. 4. Osteomyelitis with strep bacteremia and sepsis, present on admission. 5. Escherichia coli urinary tract infection. 6. Anemia. PLAN: 1. Adjust insulin and diabetic regimen. 2. Continue fluids as recommended by Nephrology. 3. Continue current antibiotics. 4. Low-dose risperidone as needed for agitation. Augusto Roberts MD [facility]/MODL /[id number]
[2019-09-01 16:52] LABS: ALBUMIN 1.4 g/dL (3.5-5.0); BILIRUBIN,DIRECT 0.1 mg/dL (0.0-0.5)
--- NOTE | 2019-09-01 17:08 | NUR ---
Nutrition Intervention Note RD Recommendation(s) for Physician: - As feasible, advance diet to 1500 ADA - Continue Glucerna Shake TID - Consider MVI with minerals for adequacy - Recommend Vitamin C and Zinc Sulfate to promote wound healing Plan of Care: RD following, monitoring for tolerance and adequacy Nutrition reason for involvement: Follow up RD Assessment 08/31: Follow up. Pt continues with AMS, unable to obtain hx- appears well nourished. Pt with R foot wound, possible osteomyelitis. Pt with poor intake, 0-50% of meals within the past week and currently on a supplement- Glucerna Shake TID. Chart reviewed. Will continue to monitor. (08/24) 79 YOF admitted for DKA and severe sepsis found to have healing broken ribs and L2 fracture upon admit due to falls per MD notes. Pt discussed during am MDR, continues on insulin drip and CLD tolerance pending. Pt currently PUI, unable to obtain hx at time of visit. No reported poor intake per admit H&P. Pt wt stable x 1 yr per prior admit wt of 132#. Pt educated on DM diet restrictions at prior admit, will address education needs at follow up visit. Chart reviewed. Labs and meds reviewed. Primary Diagnose(s): DKA, severe sepsis PMH: DM2, Afib, HTN, CHF, hypothyroidism, diverticulosis GI: LBM 08/31 Skin: R foot - diabetic wound, cellulitis Labs: (08/31) Na 149, K 3.3, BUN 59, Cr 1.94, gluc 114, POC Gluc 82-107, Ca 8 Meds: protonix, Na bicarb, abx, synthroid Ht: 62 in Wt: 131 lb BMI: 24 kg/m2 IBW: 110 lb Malnutrition Evaluation (09/01/19) The patient does not meet criteria for a specified degree of malnutrition at this time. Will re-evaluate at follow-up as appropriate. Energy intake: <75% of estimated energy requirements for >7 days Weight loss: RUBIO Fat loss: none, ample triceps fold thickness Muscle loss: none, shoulder round Supporting Evidence: Fluid accumulation: none Functional Status: unable to evaluate Nutrition Prescription (Diet Order): full liquids, Glucerna shake TID Estimated Nutritional Needs: 7331-7825 calories/day (18-20 kcal/kg CBW) 67-100 g protein/day (1-1.5 g pro/kg CBW) Diet Adequacy: Not meeting calorie needs, Not meeting protein needs Diet Tolerance: tolerating po Diet education: Diet education indicated, but patient not appropriate for education at this time 2/2 AMS. Nutrition Care Level: moderate Nutrition Diagnosis: Inadequate energy and protein intake related to AMS as evidenced by not meeting needs. Goal: Patient will meet 75-100% of estimated needs by follow up Progress: N/A Interventions: -fluid, fiber-modified diet, Commercial beverage, Recommended Modifications, Multivitamin/mineral supplement therapy, Collaboration with other providers Monitoring/Evaluation: -Total energy intake, Total protein intake, Modified diet, Liquid supplement Signed: Belen Garcia RD, LD, [facility]
[2019-09-01 17:12] LABS: THYROID STIMULATING HORMONE 1.128 uIU/mL (0.350-4.940)
[2019-09-01 17:13] LABS: FREE T4 (FREE THYROXINE) 0.94 ng/dL (0.8-1.8); THYROID STIMULATING HORMONE 1.143 uIU/mL (0.350-4.940)
[2019-09-01] MEDS: LEVOTHYROXINE SODIUM 100 MCG/VIAL IV SCH (18:50)
--- NOTE | 2019-09-01 19:31 | Consultation ---
DATE OF CONSULTATION: Neurology Consult HISTORY OF PRESENT ILLNESS: Mrs. Phillips is a 79-year-old female, who comes to my attention for delirium. She presents primarily for a history of diabetes and atrial fibrillation and presents with hypertension, chronic heart failure, mammograms with her foot for worsening infection and developed sepsis after being on prednisone for gout. She is having hyperglycemic confusion. This was on 08/24/2019, and then she was admitted for further evaluation and care. CT of the abdomen and pelvis showed bilateral fractures of the ribs as well as transverse processes of L2 and the family reports that somehow she is too delirious to give any past medical history, review of systems, surgical history, etc. PAST MEDICAL HISTORY: She does have a notable past medical history for atrial fibrillation, diabetes, hypertension, hypothyroidism. PHYSICAL EXAMINATION: VITAL SIGNS: At this time, we have a temperature of 97.4, heart rate of 86 paced. Her blood pressure is 114/64. She is saturating on nasal cannula about 99%. She has been shown to have Streptococcus bacteremia, foot wound, diabetic ketoacidosis, acute kidney disease, E. coli UTI, and metabolic encephalopathy and I was asked to see the patient for neurophysiological causes of her symptomatology. LABORATORY FINDINGS: Show she still has leukocytosis with a white blood cell count of 17.3, hemoglobin of 7.5. She is anemic. Platelets 462. Her INR is 1.76. UA is dirty. Chemistry panel shows sodium of 149. BUN of 59, creatinine of 1.94. I have an ammonia level that is pending. LFTs seem normal. TSH last drawn on 08/30 was 2.34 and was negative otherwise. This is Dr. Jesus evaluating her for encephalopathy and delirium. We are going to send clearance workup of metabolic etiology including uric acid, ammonia levels, TSH, parathyroid hormone, serum serotonin, and myoglobin. We will get an EEG on the patient and I believe imaging has already been ordered and we will append that as well. She is not acting with the focal exam, given that her exam is delirious. PHYSICAL EXAMINATION: HEENT: The patient had , but pupils are reactive. Extraocular muscles intact. EOMs are intact. NECK: Supple. There is no nuchal rigidity. CARDIOVASCULAR: Irregularly irregular. PULMONARY: Clear. ABDOMEN: Soft and nontender. NEUROLOGIC: She is edematous throughout with bruises and ulcers in pressure points. Reflexes are diminished, absent throughout. She does withdraw from noxious stimulation, but her strength is 2/4 in all extremities without any focality. Again, patient for delirium, dementia, and metabolic encephalopathy. EEG will be ordered. Lab workup will be sent out. . KAY JESUS MD RR/MODL /[id number]
[2019-09-01] MEDS: INSULIN REGULAR, HUMAN 3ML VL 100 UNIT in SODIUM CHLORIDE 0.9% 99 ML IV SCH ×4 (20:17→22:01)
[2019-09-01] MEDS: DEXTROSE 5% 1,000 ML IV SCH (20:59)
--- NOTE | 2019-09-01 21:01 | Consultation ---
DATE OF CONSULTATION: Endocrine consultation The patient of Dr. Knapp and Dr. Hernandez. Thank you very much for referring this patient. HISTORY OF PRESENT ILLNESS: This is a 79-year-old lady who is referred to me for evaluation of diabetic ketoacidosis. The patient came to the hospital with history of altered mental status and a blood sugar of 802. Her anion gap at that time was 28.2. During this hospital stay, the patient has been on insulin drip and IV fluid management. Her main issue right now is altered mental status and she also has an infection of the foot. The patient has multiple other medical problems including history of hypothyroidism, chronic atrial fibrillation, and coronary artery disease. MEDICATIONS: Her other routine medications include; amiodarone, Synthroid 0.05 mg once daily, and insulin at home. The patient does not take any as SGLT2 inhibitors. PHYSICAL EXAMINATION: GENERAL: Today, the patient is arousable. She responds to the painful stimulus. VITAL SIGNS: Her heart rate is around 70, blood pressure 130/80 mmHg. HEENT: Essentially unremarkable. Thyroid is palpable. Clinically, she is near euthyroid. CHEST: Bilateral vesicular breathing. She has mild bronchospasm. CARDIAC: First and second heart sound. There is no 3rd or 4th heart sound. Ejection systolic murmur is grade 2/6. IMPRESSION: Diabetes mellitus type 2, uncontrolled with complication of diabetic ketoacidosis, acute on chronic renal failure, altered mental status, rule out cerebrovascular accident, metabolic encephalopathy, and hypothyroidism. PLAN: At this time is to continue the insulin drip and change her to D5W and give her some more free water. We will also do a hemoglobin A1c and thyroid function test. Thanks for referring this patient. I will follow this patient with you. MD BALDOMERO Guzman/ILDA /[id number]
[2019-09-02] VITALS (12 sets, daily range): BP systolic 115–179; BP diastolic 61–109
[2019-09-02] MEDS: RISPERIDONE 0.5 MG TAB PO PRN (00:14)
[2019-09-02] MEDS: INSULIN REGULAR, HUMAN 3ML VL 100 UNIT in SODIUM CHLORIDE 0.9% 99 ML IV SCH ×6 (00:15→04:21)
[2019-09-02 05:21] LABS: BASOPHILS # (AUTO) 0.1 (0.0-0.1); BASOPHILS % 0.3 % (0.0-1.0); HEMATOCRIT 23.6 % (34.2-44.1); HEMOGLOBIN 7.5 g/dL (12.0-16.0); LYMPHOCYTES # (AUTO) 0.6 (1.0-3.2); LYMPHOCYTES % 3.2 % (18.0-39.1); MEAN CORPUSCULAR HEMOGLOBIN 31.9 pg (28-32); MEAN CORPUSCULAR HGB CONC 31.8 g/dL (31-35); MEAN CORPUSCULAR VOLUME 100.4 fL (81-99); MONOCYTES # (AUTO) 0.7 (0.2-0.8); MONOCYTES % 3.8 % (4.4-11.3); NEUTROPHILS # (AUTO) 17.2 (2.1-6.9); NEUTROPHILS % 90.7 % (38.7-80.0); PLATELET COUNT 457 x10e3/uL (140-360); RED BLOOD COUNT 2.35 x10e6/uL (3.6-5.1); RED CELL DISTRIBUTION WIDTH 15.2 % (11.7-14.4)
[2019-09-02 06:27] LABS: ALBUMIN 1.4 g/dL (3.5-5.0); ALBUMIN/GLOBULIN RATIO 0.4 (0.8-2.0); ANION GAP 16.2 mmol/L (8-16); CALCIUM 7.8 mg/dL (8.4-10.2); CREATININE, SERUM 1.95 mg/dL (0.57-1.11); POTASSIUM 3.2 mmol/L (3.5-5.1)
[2019-09-02] MEDS: DEXTROSE 5% 1,000 ML IV SCH ×2 (06:39→14:10)
[2019-09-02] MEDS: LEVOTHYROXINE SODIUM 100 MCG/VIAL IV SCH (06:39)
--- NOTE | 2019-09-02 06:57 | NUR ---
awake, shaking head, follows simple commands t 97 hr 86 153/73 awake but agitated delirium shakes head back and forth erica-orbital edema diffuse edema in extremities, tense pupils reactive no nuchal rigidity no bruits rrr cta abd soft no guarding moves all 4 extremities symmetrically 3/5 away from nox stim sensory grossly symmetric responds to verbal /auditory stim and consistant with following simple commands a/p- sepsis as per primary team agitated delirium- toxic + metabolic and infectious etiologies, no evidence of meningitis based on clinical exam labs in progress eeg pending CT diffuse white matter disease, non focal and no evidence of acute injury elevated myoglobin- patient may be having myositis vs reaction to continuous movement, myostic workup will be sent, outpt EMG ncv and possible muscle biospy depending on symptom recovery. 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
--- NOTE | 2019-09-02 08:38 | Progress Note ---
DATE: SUBJECTIVE: Ms. Espinosa continued to be confused, however, there is no fever, no chills. Her blood cultures are negative. I do not think the patient continued to be septic. I think when she first came, she was septic with bacteremia, but now with the lethargy, I am concerned it is metabolic. Discussed with the medical team in detail. I am going to stop the steroid and continue Rocephin. I am going to back it up a little better since I am concerned it may be drug related encephalopathy. I did come back again to assess her knee because there was concern because when I examined the knee, there was effusion, but there is no redness, no swelling, so I do not think it is infected. I still think it is metabolic encephalopathy. I ordered a CT scan, lactic acid, and ammonia level. We will reassess in the morning. We will follow. MD GRACE Leo/MODL /[id number]
[2019-09-02] MEDS: AMIODARONE HCL 200 MG TAB PO SCH (08:58)
[2019-09-02] MEDS: COLLAGENASE 5 GM TUBE TOP SCH ×2 (08:59→17:00)
[2019-09-02] MEDS: BALSAM PERU/CASTOR OIL 60 GM OINT...G. TP SCH (08:59)
[2019-09-02] MEDS: SODIUM BICARBONATE 650 MG TAB PO SCH ×2 (08:59→17:00)
[2019-09-02] MEDS ORDERED: POTASSIUM CHLORIDE 20MEQ/100ML 100 ML IV ONE (09:30)
[2019-09-02] MEDS: PANTOPRAZOLE 40 MG 10ML VIAL IV SCH (09:38)
[2019-09-02] MEDS: CEFTRIAXONE SOD 1 GM/NS 50 ML 50 ML IV SCH (09:38)
[2019-09-02 09:39] LABS: MAGNESIUM 1.7 MG/DL (1.3-2.1); PHOSPHORUS 4.5 MG/DL (2.3-4.7)
[2019-09-02] MEDS ORDERED: DEXTROSE 5% 1,000 ML IV ONE (09:45)
--- NOTE | 2019-09-02 10:28 | Progress Note ---
DATE: SUBJECTIVE: The patient is seen and evaluated. Available labs and notes reviewed. REVIEW OF SYSTEMS: The patient spoke a few words with me today. States that she does not know where she is and she states that she is doing okay. She speaks more words at a time; however, seems to be a little bit more alert and oriented today. The patient seems to be alert and oriented x1. OBJECTIVE: VITAL SIGNS: Temperature 96.9, pulse 97, respirations 15 and blood pressure 159/70. GENERAL: Comfortable in bed. Spoke few words with me one word at a time saying that she is "okay" and she does not know where she is. CV: S1 and S2. CHEST: Equal expansion. Decreased breath sounds in no acute distress. ABDOMEN: Soft, obese, and nontender. HEENT: Moist. No pallor. No JVD. EXTREMITIES: Edema of the extremities seem to be improving, few wounds and ulcerations are on local care with multiple ecchymoses. MEDICATIONS: Medication list reviewed from Infectious Disease point of view, the patient is on Rocephin. LABORATORY STUDIES: White count of 18.96, which is up from yesterday was 17.38. Hemoglobin 7.5, platelet count of 457. Sodium 144, potassium 3.2, creatinine 1.95, slightly improved since 2 days ago. AST, ALT and alkaline phosphatase within normal limits which respectively are 28, 20, and 92. Total protein of 5.4 with an albumin of 1.4. MICROBIOLOGY: Blood culture recheck is negative on 08/30/2019. Urine culture showed yeast. Previous urine culture on 08/24/2019 was E. coli and previous blood culture on 08/24/2019 was strep agalactiae group B. IMAGING: The patient had a CT scan of the brain on 09/01/2019 showing no new or acute intracranial abnormalities compared to the prior head CT performed on August 30, 2019. Unchanged chronic microvascular ischemic changes and volume loss. ASSESSMENT AND PLAN: 1. Altered mental status, concern metabolic encephalopathy. Lactic acid was 0.8, which is well within normal limit. Ammonia level is 30, which is low compared within normal range. CT of the head as mentioned above, no acute finding. Overall seems to be improved slightly today, as I mentioned above she spoke a few words. Sepsis on admission with strep agalactiae group B bacteremia with recheck blood culture negative. 2. Sepsis, resolved. 3. Urinary tract infection with E. coli. Recheck urine culture shows yeast. 4. Diabetes. 5. Diabetic ketoacidosis. 6. Multiple wounds on local care. 7. Atrial fibrillation. 8. Congestive heart failure. 9. Patient remains on Rocephin. Discussed with Dr. Barreto in details. Please refer to chart for more information. Creatinine level is slightly improved and seems to be stable for past couple of days in 1.95/1.94 level. Dictated by Jemal Hagan) DINORA Yaenz Maurizio Barreto MD /MODL /[id number]
[2019-09-02] MEDS ORDERED: FUROSEMIDE INJ 10 MG/ML 4 ML VIAL IV ONE (13:10)
--- NOTE | 2019-09-02 13:50 | Progress Note ---
DATE: SUBJECTIVE: The patient was started on insulin drip yesterday. Her bicarbonate has improved. She still has some confusion and disorientation. She was seen again by Infectious Disease, who recommended a lumbar puncture. PHYSICAL EXAMINATION: VITAL SIGNS: The blood pressure is 178/90 and saturation is 99% on 2 L. The pulse is 88. HEENT: Shows no facial swelling or erythema. CARDIAC: Reveals regular rate and rhythm with normal S1 and S2. LUNGS: Auscultation of lungs reveals clear breath sounds bilaterally. There is no wheezing. ABDOMEN: Soft and nontender. There is no rebound or guarding. EXTREMITIES: Shows no leg edema or calf tenderness. There is no cyanosis or clubbing. SKIN: Shows no rashes. NEUROLOGIC: Still shows confusion. LABORATORY DATA: White blood cell count is 18.9 and the hemoglobin is 7.5. The platelet count is 457. The carbon dioxide is improved to 22 and the chloride is 109. The BUN is 55 and the creatinine is 1.95. IMPRESSION: 1. Metabolic encephalopathy. 2. Strep bacteremia and possible osteomyelitis. 3. Escherichia coli urinary tract infection. 4. Diabetic ketoacidosis. 5. Anemia. 6. Foot wound. 7. Mlelt-bn-mnbougk renal failure. PLAN: 1. Continue current antibiotics. 2. Possible lumbar puncture. 3. The patient will be switched to subcutaneous insulin today. 4. Monitor hemoglobin and transfuse if needed. 5. Wound care. Augusto Roberts MD [facility]/MODL /[id number]
--- NOTE | 2019-09-02 14:36 | Diagnostic Imaging Report ---
EXAMINATION: FOOT RIGHT COMPLETE INDICATION: Foot pain COMPARISON: None FINDINGS: No acute fracture or dislocation. Alignment appears anatomic. Mild soft tissue irregularity along the lateral aspect of the midfoot. No specific radiographic findings of osteomyelitis. Small plantar calcaneal spur. Atherosclerotic arterial calcifications. IMPRESSION: No acute osseous injury. No specific radiographic findings of osteomyelitis. Signed by: Ilir Krueger MD on 09/02/2019 2:33 PM
--- NOTE | 2019-09-02 15:21 | Progress Note ---
DATE: 09/02/2019 SUBJECTIVE: The patient is seen at bedside. Still not responsive and confused. OBJECTIVE: VITAL SIGNS: Afebrile, pulse rate 85, respirations 20, blood pressure 165/74, and O2 saturation 100%. EXTREMITIES: Ulceration to the medial aspect of the right talotibial joint showing some granulation tissue. Still some necrosis medially with some bone exposed and also necrosis noted to the dorsal aspect of the 1st MPJ with an ulcer measuring more than 2 to 2.5 cm in diameter. Some drainage noted to forefoot aspect of the right foot with negative foul smell. Pedal pulses diminished. LABORATORY DATA: Show a white blood cell count going up to 18.96. ASSESSMENT: Cellulitis with multiple grade 4 ulcerations with osteomyelitis and decreased circulatory status. PLAN: We will continue IV antibiotics. Continue local wound care with Santyl followed by diluted wet-to-dry Betadine b.i.d., ceftriaxone q.24h. We will continue to treat conservatively. Continue offloading. LNADEN Moya/ILDA /[id number]
--- NOTE | 2019-09-02 17:30 | Progress Note ---
DATE: 09/02/2019 Cardiology Progress Note SUBJECTIVE: The patient remains confused. She did not respond to questions. EEG was being performed at time of exam. OBJECTIVE: VITAL SIGNS: Temperature 97.1 degrees, pulse 85, respiratory rate 12, blood pressure 147/73, and oxygen saturation 99% on room air. GENERAL: Chronically ill-appearing, elderly woman, confused. LUNGS: Clear to auscultation in anterior lung machado. No wheezes or crackles. CARDIOVASCULAR: Normal rate. Regular rhythm. No murmur. Normal S1 and S2. ABDOMEN: Soft and nontender. EXTREMITIES: No edema. Dressing is present on the right. CARDIAC MEDICATIONS: Levothyroxine 50 mcg IV daily. LABORATORY DATA: WBC 18.96, hemoglobin 7.5, hematocrit 23.6, and platelets 457. Sodium 144, potassium 3.2, chloride 109, CO2 22, BUN 55, and creatinine 1.95. Telemetry was personally reviewed and interpreted, revealing ventricular paced rhythm. IMPRESSION: 1. Streptococcus agalactiae group B bacteremia. 2. Right foot wound. 3. Diabetic ketoacidosis. 4. Cndpf-gn-vehiqta kidney disease. 5. Altered mental status, suspect metabolic encephalopathy. 6. Escherichia. coli urinary tract infection. 7. Peripheral arterial disease suggested by noninvasive Doppler evaluation. 8. Chronic systolic heart failure. 9. Paroxysmal atrial fibrillation. RECOMMENDATIONS: Continue supportive care. The patient is unable to take amiodarone at this time due to altered mental status. Monitor the patient closely on telemetry. If necessary, she can be started on IV metoprolol for rate control, however, at this time, the patient is paced. We will continue to monitor. The patient is planned for lumbar puncture. Continue to hold anticoagulation. Blood pressure is noted to be elevated. If hypertension persists, we will need to start IV medications for blood pressure control, as she is unable to take p.o. at this time. Antibiotics per Infectious Disease. Wound care per Podiatry. No plan for peripheral angiogram at this time given the patient's current clinical condition. Could consider further evaluation once mental status improves and the patient's infection has resolved. Thank you for this consult. We will continue to follow. Ruth Joseph MD [facility]/MODL /[id number]
--- NOTE | 2019-09-02 19:00 | NUR ---
Report received from Christel Blackmon RN.
--- NOTE | 2019-09-02 22:30 | NUR ---
Report given to Maciel CESPEDES.
[2019-09-03] VITALS (8 sets, daily range): BP systolic 101–168; BP diastolic 51–97
[2019-09-03] MEDS: DEXTROSE 5% 1,000 ML IV SCH ×2 (01:47→09:04)
[2019-09-03 05:05] LABS: BASOPHILS # (AUTO) 0.1 (0.0-0.1); BASOPHILS % 0.4 % (0.0-1.0); HEMATOCRIT 25.8 % (34.2-44.1); HEMOGLOBIN 8.4 g/dL (12.0-16.0); LYMPHOCYTES # (AUTO) 0.6 (1.0-3.2); LYMPHOCYTES % 2.8 % (18.0-39.1); MEAN CORPUSCULAR HEMOGLOBIN 32.1 pg (28-32); MEAN CORPUSCULAR HGB CONC 32.6 g/dL (31-35); MEAN CORPUSCULAR VOLUME 98.5 fL (81-99); MONOCYTES # (AUTO) 0.5 (0.2-0.8); MONOCYTES % 2.4 % (4.4-11.3); NEUTROPHILS # (AUTO) 18.7 (2.1-6.9); NEUTROPHILS % 91.2 % (38.7-80.0); PLATELET COUNT 464 x10e3/uL (140-360); RED BLOOD COUNT 2.62 x10e6/uL (3.6-5.1); RED CELL DISTRIBUTION WIDTH 14.8 % (11.7-14.4)
[2019-09-03 05:25] LABS: ALBUMIN 1.4 g/dL (3.5-5.0); ALBUMIN/GLOBULIN RATIO 0.4 (0.8-2.0); ANION GAP 14.9 mmol/L (8-16); CALCIUM 7.7 mg/dL (8.4-10.2); CREATININE, SERUM 1.89 mg/dL (0.57-1.11); POTASSIUM 3.9 mmol/L (3.5-5.1)
[2019-09-03] MEDS: LEVOTHYROXINE SODIUM 100 MCG/VIAL IV SCH (06:04)
[2019-09-03 07:44] LABS: ANISOCYTOSIS SLIGHT; LYMPHOCYTES % (MANUAL) 1 % (19-48); MONOCYTES % (MANUAL) 2 % (3.4-9.0); NEUTROPHILS % (MANUAL) 97 % (40-74); PLATELET ESTIMATE SLIGHTLY INCREASED; PLATELET MORPHOLOGY COMMENT NORMAL; RBC MORPHOLOGY COMMENT NORMAL
[2019-09-03] MEDS: FLUCONAZOLE 100 MG/NS 50 ML 50 ML IV SCH (08:33)
[2019-09-03] MEDS: AMIODARONE HCL 200 MG TAB PO SCH (08:59)
[2019-09-03] MEDS: SODIUM BICARBONATE 650 MG TAB PO SCH ×2 (09:00→17:00)
--- NOTE | 2019-09-03 09:00 | NUR ---
pt resting, not fully arousing. placed on 1 lpm nc for sats 88%. MD rounded and aware.
[2019-09-03] MEDS: PANTOPRAZOLE 40 MG 10ML VIAL IV SCH (09:04)
[2019-09-03] MEDS: COLLAGENASE 5 GM TUBE TOP SCH ×2 (09:04→17:07)
[2019-09-03] MEDS: BALSAM PERU/CASTOR OIL 60 GM OINT...G. TP SCH (09:04)
[2019-09-03] MEDS: CEFTRIAXONE SOD 1 GM/NS 50 ML 50 ML IV SCH (09:04)
--- NOTE | 2019-09-03 10:03 | Progress Note ---
DATE: 09/03/2019 SUBJECTIVE: The patient is seen at bedside, still not responsive to verbal stimuli, confused. OBJECTIVE: VITAL SIGNS: Afebrile, pulse rate 96, respirations 16, blood pressure 135/86, O2 saturation 98%. LABORATORY DATA: Labs show white blood cell count still going up to now to 20.50. Ulceration to the right ankle joint is getting better, some granulation tissue noted, decreased drainage. Has some drainage to the dorsal aspect right foot, but negative foul smell with some necrosis overlying the 1st metatarsophalangeal joint with dry black eschar noted. There is decreased edema to the right lower extremity. Pedal pulses diminished. ASSESSMENT: Grade 4 ulcer, osteomyelitis, cellulitis, right foot with decreased circulatory status. PLAN: We will continue IV antibiotics. Continue local wound care, b.i.d. dressing changes with Santyl followed by diluted wet-to-dry Betadine. We will continue to follow. Offload as best as possible. LANDEN Moya/ILDA /[id number]
--- NOTE | 2019-09-03 10:18 | Progress Note ---
DATE: SUBJECTIVE: The patient is seen and evaluated. Available labs and notes reviewed. Discussed with Dr. Barreto. Discussed with the nurse. The patient remains lethargic, opens eyes, speaks a few words. No events overnight per my discussion with staff. OBJECTIVE: VITAL SIGNS: Temperature 97.9, pulse is 96, respirations 16, blood pressure 135/86. GENERAL: Lethargic. Easily awaken and not much of verbal, maybe few words, comfortable in bed in no acute distress. HEENT: Moist. No pallor. No JVD. CV: S1, S2. CHEST: Equal expansion. Decreased breath sounds. No acute distress. ABDOMEN: Soft, obese. Positive bowel sounds and nontender. EXTREMITIES: Multiple wounds and ecchymoses about all extremities. Right foot dorsal wounds, concerned ischemic secondary to venous stasis on local care. Overall wound has no significant change. MEDICATIONS: From Infectious Disease point of view, the patient is on Diflucan and Rocephin. LABORATORY STUDIES: White count 20.5, hemoglobin 8.4, platelet 464. Sodium 133, potassium 3.9 creatinine 1.89. Serology; no new serology. MICROBIOLOGY: Urine culture on 08/30 was yeast. Blood culture 08/29 negative. Previous blood culture 08/23 strep agalactiae group B. RADIOLOGY STUDIES: X-ray of the foot on 09/02/2019 showed no specific radiographic findings of osteomyelitis. No acute osseous injuries. ASSESSMENT AND PLAN: 1. Altered mental status, concern metabolic. CT of the head showed no new or acute intracranial abnormalities. Ammonia level was 30 and lactic acid of 0.8. Overall slightly improved, but still remains weak and lethargic. 2. Sepsis. 3. Urinary tract infection. 4. Diabetes. 5. Diabetic ketoacidosis. 6. Congestive heart failure. 7. Atrial fibrillation. 8. Multiple wounds. 9. Concern for venous stasis. 10. Continue with Rocephin and Diflucan. Recheck urine culture was positive for yeast, identification still pending, remains afebrile. Continue wound care. Overall guarded prognosis. Discussed with Dr. Barreto in details. Thank you for this dictation. Dictated by Jemal Yanez PA-C (Al) MD LISA Leo/FARSHADL /[id number]
--- NOTE | 2019-09-03 11:48 | Progress Note ---
DATE: 09/03/2019 Cardiology Progress Note SUBJECTIVE: The patient remains confused. OBJECTIVE: VITAL SIGNS: Temperature 97.9 degrees, pulse 96, respiratory rate 16, blood pressure 135/86, oxygen saturation 98% on 1 L nasal cannula. GENERAL: Chronically ill-appearing elderly woman, confused. LUNGS: Clear to auscultation in the anterior lung machado. No wheezes or crackles. CARDIOVASCULAR: Normal rate. Regular rhythm. No murmur. Normal S1 and S2. ABDOMEN: Soft and nontender. EXTREMITIES: Trace edema. Dressing is present on the right foot. CARDIAC MEDICATIONS: Levothyroxine 50 mcg IV daily. LABORATORY DATA: WBC 20.5, hemoglobin 8.4, hematocrit 25.8, platelets 464. Sodium 133, potassium 3.9, chloride 102, CO2 20, BUN 54, creatinine 1.89. Telemetry was personally reviewed and interpreted, revealing ventricular paced rhythm. IMPRESSION: 1. Streptococcus agalactiae group B bacteremia. 2. Right foot wound. 3. Diabetic ketoacidosis. 4. Rqxbs-hy-xffkoit kidney disease, improving. 5. Altered mental status, suspect metabolic encephalopathy. 6. Escherichia coli urinary tract infection. 7. Peripheral arterial disease suggested by noninvasive Doppler evaluation. 8. Chronic systolic heart failure. 9. Paroxysmal atrial fibrillation. RECOMMENDATIONS: Continue supportive care. The patient is unable to take amiodarone at this time due to altered mental status. Monitor the patient closely on telemetry. If necessary, she can be started on IV metoprolol for rate control. Hold anticoagulation for possible lumbar puncture. Check chest x-ray as well as BNP given the patient's increasing oxygen requirement. She may need IV diuretics given her known systolic heart failure. Antibiotics per Infectious Disease. Wound care per Podiatry. No plan for peripheral angiogram at this time given the patient's current clinical condition, could consider further evaluation once mental status improves and patient's infection has resolved. Thank you for this consult. We will continue to follow. Ruth Joseph MD [facility]/MODL /[id number]
--- NOTE | 2019-09-03 12:24 | NUR ---
CM asked Dr. Knapp about possible LTAC eval after lumbar puncture. He stated not yet.
--- NOTE | 2019-09-03 13:26 | NUR ---
dr romero on unit, aware of BS. drip on hold. recent 63. per MD hold and check BS q2 hours.
--- NOTE | 2019-09-03 13:40 | Diagnostic Imaging Report ---
EXAM: CHEST SINGLE (PORTABLE) DATE: 09/03/2019 1:13 PM INDICATION: Hypoxemia COMPARISON: 08/31/2019 FINDINGS: Left-sided AICD and right-sided central venous catheter identified in stable position. There is stable elevation of the right hemidiaphragm with associated right basilar atelectasis. Mildly increased left basilar opacities noted suggestive of atelectasis. There is no new large focal consolidation, pneumothorax, or significant pleural effusion. The cardiomediastinal silhouette is stable in appearance. Cervical fusion hardware again identified. No acute osseous abnormality identified. IMPRESSION: Bibasilar atelectasis. Otherwise, no significant interval change from 08/31/2019. Signed by: Dr. Medhat Palomo MD on 09/03/2019 1:37 PM
[2019-09-03] MEDS ORDERED: FUROSEMIDE INJ 10 MG/ML 4 ML VIAL IV SCH (14:30)
[2019-09-03] MEDS: SODIUM BICARBONATE 8.4% SYRING 75 ML in SODIUM CHLORIDE 0.45% 1,000 ML IV SCH (15:15)
--- NOTE | 2019-09-03 16:40 | Progress Note ---
DATE: SUBJECTIVE: Ms. Espinosa seems to be a little more alert. She was seen by Neuro. PHYSICAL EXAMINATION: GENERAL: Currently alert. Follows simple commands. VITAL SIGNS: Stable. Currently afebrile. HEENT: She is not icteric. NECK: Supple. CHEST: Clear. COR: S1 and S2. ABDOMEN: Soft. IMPRESSION: Altered mental status, it is probably metabolic, probably due to medication. I did decrease the Rocephin dose yesterday. The patient is getting EEG. In terms of sepsis, she is getting better. Bacteremia resolved. There is no fever, no chills. Continue to monitor the patient clinically. Her EEG is being done today. CT was negative. MD GRACE Leo/MODL /[id number]
--- NOTE | 2019-09-03 20:26 | Progress Note ---
DATE: SUBJECTIVE: The patient still has some confusion. She is not having fevers. PHYSICAL EXAMINATION: VITAL SIGNS: The blood pressure is 108/83 and the saturation is 100% on 2 L. HEENT: Shows no facial swelling or erythema. CARDIAC: Reveals regular rate and rhythm with normal S1 and S2. LUNGS: Auscultation of lungs reveals decreased breath sounds at the bases. There is no wheezing. ABDOMEN: Soft and nontender. There is no rebound or guarding. EXTREMITIES: Shows no leg edema or calf tenderness. There is no cyanosis or clubbing. SKIN: Shows no rashes. LABORATORY DATA: White blood cell count is 20.5 and the hemoglobin is 8.4. The platelet count is 464. BUN to creatinine ratio is 54 to 1.89. Other electrolytes are significant for carbon dioxide of 20. Albumin is 1.4. IMPRESSION: 1. Metabolic encephalopathy. 2. Group B Strep bacteremia and possible osteomyelitis. 3. Escherichia coli urinary tract infection. 4. Diabetes. 5. Anemia. 6. Bkals-ts-yyaqgjc renal failure. PLAN: 1. Continue current antibiotics. 2. Continue to monitor mental status. 3. Continue to adjust insulin and control blood sugars. 4. Continue current cardiac regimen. Augusto Roberts MD [facility]/MODL /[id number]
--- NOTE | 2019-09-03 22:01 | NUR ---
BLOOD GLUCOSE AT 68 FOR PT, INSULIN CURRENTLY INFUSING AT 1 UNIT PER HOUR, PER DR ORDER HOLD INSULIN FOR 1 HOUR AND WILL RECHECK BLOOD GLUCOSE AT 2300.
--- NOTE | 2019-09-03 23:07 | NUR ---
PATIENT BLOOD GLUCOSE NOW 64, CONTINUING TO HOLD INSULIN DRIP AND WILL RECHECK IN ONE HOUR. WILL CONT TO MONITOR.
[2019-09-04] VITALS (9 sets, daily range): BP systolic 108–151; BP diastolic 47–66
--- NOTE | 2019-09-04 00:17 | NUR ---
PATIENT'S BLOOD GLUCOSE STILL AT 64 WILL CONT TO HOLD INSULIN DRIP FOR ANOTHER HOUR AND RECHECK.
--- NOTE | 2019-09-04 01:05 | NUR ---
PATIENT'S BLOOD GLUCOSE AT 78 WILL CONT TO HOLD INSULIN DRIP AND THEN RECHECK IN A HOUR.
--- NOTE | 2019-09-04 03:13 | NUR ---
PATIENT'S BLOOD GLUCOSE IS 86, CONTINUING TO HOLD INSULIN DRIP PER ORDER. WILL RECHECK IN ONE HOUR.
--- NOTE | 2019-09-04 04:10 | NUR ---
PATIENT BLOOD GLUCOSE STILL 86, PER ORDER WILL CONT TO HOLD INSULIN DRIP AND RECHECK IN ONE HOUR.
[2019-09-04] MEDS: LEVOTHYROXINE SODIUM 100 MCG/VIAL IV SCH (04:51)
[2019-09-04] MEDS: FLUCONAZOLE 100 MG/NS 50 ML 50 ML IV SCH (04:51)
[2019-09-04] MEDS: SODIUM BICARBONATE 8.4% SYRING 75 ML in SODIUM CHLORIDE 0.45% 1,000 ML IV SCH ×2 (04:51→08:00)
--- NOTE | 2019-09-04 05:36 | NUR ---
PATIENT BLOOD GLUCOSE NOW AT 93, STILL UNDER THE 100 BG TO RESTART INSULIN DRIP PER ORDER. PATIENT HAS NOW BEEN OFF INSULIN DRIP FOR 8 HOURS -- CALLING DR. BELLA TO NOTIFY. AWAITING CALL BACK.
[2019-09-04] MEDS ORDERED: DEXTROSE 50% SYRINGE 50 ML IV PRN (05:45)
[2019-09-04 05:47] LABS: BASOPHILS % 0.2 % (0.0-1.0); HEMATOCRIT 26.1 % (34.2-44.1); HEMOGLOBIN 8.4 g/dL (12.0-16.0); LYMPHOCYTES # (AUTO) 0.7 (1.0-3.2); LYMPHOCYTES % 3.1 % (18.0-39.1); MEAN CORPUSCULAR HEMOGLOBIN 32.6 pg (28-32); MEAN CORPUSCULAR HGB CONC 32.2 g/dL (31-35); MEAN CORPUSCULAR VOLUME 101.2 fL (81-99); MONOCYTES # (AUTO) 0.4 (0.2-0.8); MONOCYTES % 1.9 % (4.4-11.3); NEUTROPHILS # (AUTO) 20.3 (2.1-6.9); PLATELET COUNT 431 x10e3/uL (140-360); RED BLOOD COUNT 2.58 x10e6/uL (3.6-5.1); RED CELL DISTRIBUTION WIDTH 14.8 % (11.7-14.4)
[2019-09-04 06:15] LABS: ALBUMIN 1.4 g/dL (3.5-5.0); ALBUMIN/GLOBULIN RATIO 0.4 (0.8-2.0); ANION GAP 16.1 mmol/L (8-16); CALCIUM 7.6 mg/dL (8.4-10.2); CREATININE, SERUM 1.87 mg/dL (0.57-1.11); POTASSIUM 4.1 mmol/L (3.5-5.1)
[2019-09-04] MEDS: INSULIN LISPRO 100 UNIT/1 ML 3ML VIAL SQ SCH ×4 (07:30→21:00)
[2019-09-04] MEDS ORDERED: LIDOCAINE HCL 1% LOCAL INJ 20 ML VIAL ONE (07:59)
--- NOTE | 2019-09-04 07:59 | NUR ---
awake, looks at examiner. states "im tired of this and i want to go home" is able to repeat simple phrases and follow commands t 98.6 93 142/65 awake less agitated, but still confused shakes head back and forth, single word responses, is able to repeat. able to express full sentence erica-orbital edema diffuse edema in extremities, tense pupils reactive no nuchal rigidity no bruits rrr cta abd soft no guarding moves all 4 extremities symmetrically 3/5 away from nox stim sensory grossly symmetric responds to verbal /auditory stim and consistant with following simple commands a/p- sepsis as per primary team agitated delirium- toxic + metabolic and infectious etiologies, no evidence of meningitis based on clinical exam CT diffuse white matter disease, non focal and no evidence of acute injury elevated myoglobin- patient may be having myositis vs reaction to continuous movement, myostic workup will be sent, outpt EMG ncv and possible muscle biospy depending on symptom recovery. 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
[2019-09-04] MEDS ORDERED: SODIUM CHLORIDE 0.9% 500ML 500 ML ONE (08:55)
[2019-09-04] MEDS: SODIUM BICARBONATE 650 MG TAB PO SCH ×2 (09:00→17:45)
--- NOTE | 2019-09-04 09:15 | NUR ---
PATIENT RETURNED FORM IR S/P SPINAL TAP PATIENT IS IN SUPINE POSITION, AWAKE, NO S/S OF DISTRESS.
[2019-09-04] MEDS: CEFTRIAXONE SOD 1 GM/NS 50 ML 50 ML IV SCH (11:02)
[2019-09-04] MEDS: PANTOPRAZOLE 40 MG 10ML VIAL IV SCH (11:02)
[2019-09-04] MEDS: ENOXAPARIN 30 MG/0.3 ML SYR SC SCH ×2 (11:02→21:00)
--- NOTE | 2019-09-04 11:34 | Progress Note ---
DATE: SUBJECTIVE: The patient is seen and evaluated. Available labs and notes reviewed. Discussed with the nurse. The patient just back from lumbar puncture, seems to be awake and oriented. Responds appropriately. Complaining of leg pain and headache. OBJECTIVE: VITAL SIGNS: Temperature 97.9, pulse 106, respiration 14, blood pressure 142/65. GENERAL: Comfortable in bed, seems to be awake and alert, responds appropriately, more talkative today. Flat in bed. Nurse in the room. CV: S1, S2. CHEST: Equal expansion. Decreased breath sounds. No acute distress. ABDOMEN: Soft, obese, nontender. Positive bowel sounds. Some discomfort HEENT: Moist. No pallor. No JVD. EXTREMITIES: Edema of extremities with lower extremity wounds, especially the right foot with left foot ulcers with lots of serous drainage. Also multiple ecchymoses on wounds of upper extremities as well. Ulcerations are not deep and they are all on local care. MEDICATIONS: Medication list reviewed. From Infectious Disease point of view, the patient is on Rocephin and Diflucan. LABORATORY STUDIES: White count 22.06, hemoglobin 8.4, platelet 431. Sodium 133, potassium 4.1, with the creatinine level of 1.87. MICROBIOLOGY: No new microbiology studies are available. RADIOLOGY STUDIES: No new radiology studies available. The patient just back from LP as mentioned above. ASSESSMENT AND PLAN: 1. Altered mental status seems improved, probably metabolic encephalopathy due to medications. The patient antibiotics re-dosed by Dr. Barreto yesterday. The patient is status post lumbar puncture. We will follow with the workup. CT of the head was negative for acute intracranial abnormalities. 2. Sepsis on admission-improved. 3. Urinary tract infection. 4. Diabetes with diabetic ketoacidosis. 5. Multiple wounds. 6. Atrial fibrillation. 7. Congestive heart failure. 8. Leukocytosis. White count went up by about 2000 today. The patient remains on Diflucan and Rocephin. Continue to monitor the patient clinically. We follow with the labs. Discussed with Dr. Barreto in details. Please refer to chart for more information. Thank you for this dictation. Dictated by Jemal Yanez PA-C (Al) Maurizio Barreto MD /MODL /[id number]
[2019-09-04 11:43] LABS: APPEARANCE,CSF CLEAR (CLEAR); COLOR,CSF COLORLESS (COLORLESS)
[2019-09-04 11:44] LABS: TOTAL PROTEIN,CSF 42.6 mg/dL (15-40)
[2019-09-04] MEDS: BALSAM PERU/CASTOR OIL 60 GM OINT...G. TP SCH (11:53)
[2019-09-04 12:06] LABS: WHITE BLOOD CELL,CSF 10 cells/uL (0-5)
--- NOTE | 2019-09-04 12:23 | Diagnostic Imaging Report ---
Procedure: Lumbar puncture. History: Ordered mental status Lapping Machine Operator: Kannan Burgos MD. Battery Assembler: None. Modality: Fluoroscopy DOSE REDUCTION: The examination was performed according to departmental dose-optimization program which includes automated exposure control, adjustment of the mA and/or kV according to patient size and/or use of iterative reconstruction technique. Fluoro time: 0.2 minutes. Radiation dose for this procedure was 2.07 mGy air Kerma. Number of images: 2 Sedation: Not applicable Physician intra-service sedation time: Not applicable. Anesthesia: 1% lidocaine preservative-free. Estimated blood loss: 0 cc. Technique: Informed written consent was obtained. Discussion of risks, benefits, and alternatives were made with the patient. The patient expressed understanding and agreed to proceed. A universal timeout was performed prior to starting the procedure. The operators used personal protective equipment and sterile gloves. The patient was laid prone on the fluoroscopy table. Radiographic evaluation of the lumbar spine was performed. There are five lumbar-type vertebrae. L2-L3 interspace was localized in the midline. A wide area was prepped using chlorhexidine gluconate and/or Betadine. This was followed by sterile draping. Local anesthetic was administered down to the interspinous ligament. A 22-gauge spinal needle was advanced into the spinal canal. CSF was returned. A total of four specimen tubes were collected each with approximately 2 cc of CSF. The CSF was clear. The patient was advised strict bedrest on the back for two hours and to avoid strenuous activity for next 24-48 hours. The patient left the department in stable condition. Complications: None immediate. Findings: As above Impression: Successful fluoroscopic-guided lumbar puncture as described above. Requested laboratory samples were sent. Thank you for the opportunity to assist in the care of your patient. Signed by: Kannan Burgos MD on 09/04/2019 12:20 PM
[2019-09-04] MEDS ORDERED: FUROSEMIDE INJ 10 MG/ML 4 ML VIAL IV SCH (12:30)
[2019-09-04] MEDS: AMIODARONE HCL 200 MG TAB PO SCH (12:30)
[2019-09-04] MEDS: COLLAGENASE 5 GM TUBE TOP SCH ×2 (12:30→19:29)
[2019-09-04 12:59] LABS: LYMPHOCYTES,CSF 10 % (40-80); MONOCYTES,CSF 9 %; NEUTROPHILS,CSF 78 % (0-6); OTHER CELLS,CSF 3 %
[2019-09-04] MEDS ORDERED: FUROSEMIDE INJ 10 MG/ML 2 ML VIAL IV SCH (13:00)
[2019-09-04 13:28] LABS: TUBE NUMBER 3
--- NOTE | 2019-09-04 13:59 | Progress Note ---
DATE: 09/04/2019 Cardiology Progress Note SUBJECTIVE: The patient is more awake and interactive today. She responded that she was doing all right, but did not answer further questions. She does remain confused. OBJECTIVE: VITAL SIGNS: Temperature 98.8 degrees, pulse 99, respiratory rate 24, blood pressure 137/50, and oxygen saturation 94% on nasal cannula. GENERAL: Chronically ill-appearing elderly woman, confused. LUNGS: Clear to auscultation in anterior lung machado. No wheezes or crackles. CARDIOVASCULAR: Normal rate. Regular rhythm. No murmur. Normal S1, S2. ABDOMEN: Soft, nontender. EXTREMITIES: Trace edema. Dressing is present on the right foot. CARDIAC MEDICATIONS: Levothyroxine 50 mcg IV daily. LABORATORY DATA: WBC 22.06, hemoglobin 8.4, hematocrit 26.1, and platelets 431. Sodium 133, potassium 4.1, chloride 101, CO2 of 20, BUN 46, and creatinine 1.87. TELEMETRY: Telemetry was personally reviewed and interpreted, revealing ventricular paced rhythm. IMPRESSION: 1. Streptococcus agalactiae group B bacteremia. 2. Right foot wound. 3. Diabetic ketoacidosis. 4. Acute on chronic kidney disease, gradually improving. 5. Altered mental status, suspect metabolic encephalopathy. 6. Escherichia coli urinary tract infection. 7. Peripheral arterial disease suggested by noninvasive Doppler evaluation. 8. Chronic systolic heart failure. 9. Paroxysmal atrial fibrillation. RECOMMENDATIONS: Continue supportive care. Resume amiodarone if the patient is now alert enough to take p.o. medications. Monitor the patient closely on telemetry. Hold anticoagulation given lumbar puncture today. We will start the patient on gentle IV Lasix to keep the patient net even. Antibiotics per Infectious Disease. Wound care per Podiatry. No plan for peripheral angiogram at this time given the patient's current clinical condition and altered mental status. Could consider further evaluation once her mental status and infection have improved. Thank you for this consult. We will continue to follow. Ruth Joseph MD [facility]/MODL /[id number]
--- NOTE | 2019-09-04 14:24 | Progress Note ---
DATE: 09/04/2019 SUBJECTIVE: The patient is seen at bedside, on the way to have a lumbar puncture. Somewhat confused, not responsive to verbal stimuli. OBJECTIVE: VITAL SIGNS: Afebrile, pulse rate 106, respiration 14, blood pressure 142/65, and O2 saturation 100%. EXTREMITIES: Ulceration to the right ankle is looking a little bit more granular. Ulceration to medial aspect right talotibial joint showing some granulation tissue. Still some erythema to the dorsal aspect of the right foot with some necrosis overlying the dorsal aspect of the 1st MPJ. Pedal pulses diminished LABORATORY DATA: Show white blood cell count continued to increase to 22.06. ASSESSMENT: Cellulitis, osteomyelitis with multiple grade 3/4 ulcerations. PLAN: We will continue local wound care with diluted wet-to-dry Betadine and Santyl. Continue IV antibiotics. Continue offloading. We will continue to follow. Prognosis guarded. LANDEN Moya/ILDA /[id number]
--- NOTE | 2019-09-04 15:15 | Progress Note ---
DATE: SUBJECTIVE: The patient is still confused. She went for a lumbar puncture. She was seen by Infectious Disease and Urology today. PHYSICAL EXAMINATION: VITAL SIGNS: The blood pressure is 137/50 and the saturation is 94%. HEENT: Shows no facial swelling or erythema. CARDIAC: Reveals regular rate and rhythm with normal S1 and S2. LUNGS: Auscultation of lungs reveals clear breath sounds bilaterally. There is no wheezing. ABDOMEN: Soft and nontender. There is no rebound or guarding. EXTREMITIES: Shows no leg edema or calf tenderness. There is no cyanosis or clubbing. LABORATORY DATA: White blood cell count is 22 and the hemoglobin is 8.4. The platelet count is 431. The BUN to creatinine ratio is 46 to 1.87. Albumin is 1.4 and the sodium is 133. The carbon dioxide is 20. IMPRESSION: 1. Metabolic encephalopathy. 2. Strep bacteremia, possible osteomyelitis. 3. Escherichia coli urinary tract infection. 4. Diabetes. 5. Anemia. 6. Xodbl-hc-cdhoruj renal failure. PLAN: 1. Await lumbar puncture results. 2. Continue current antibiotics. 3. Continue to adjust insulin and control blood sugars. 4. Wound care. 5. Monitor mental status. Augusto Roberts MD [facility]/MODL /[id number]
--- NOTE | 2019-09-04 15:36 | NUR ---
Nutrition Intervention Note RD Recommendation(s) for Physician: - When appropriate, advance diet to 1500 ADA diet - Continue Glucerna Shake TID - Consider MVI with minerals for adequacy - Recommend Vitamin C and Zinc Sulfate to promote wound healing Plan of Care: RD following, monitoring for tolerance and adequacy Nutrition reason for involvement: Follow up RD Assessment 09/03: follow up. RN stated pt continues with AMS and is not eating anything. Pt has been on full liquid diet for 8 days. Recommend advancing diet as medically appropriate. Encourage PO intake and Glucerna nutrition supplement shakes. Will continue to monitor 08/31: Follow up. Pt continues with AMS, unable to obtain hx- appears well nourished. Pt with R foot wound, possible osteomyelitis. Pt with poor intake, 0-50% of meals within the past week and currently on a supplement- Glucerna Shake TID. Chart reviewed. Will continue to monitor. (08/24) 79 YOF admitted for DKA and severe sepsis found to have healing broken ribs and L2 fracture upon admit due to falls per MD notes. Pt discussed during am MDR, continues on insulin drip and CLD tolerance pending. Pt currently PUI, unable to obtain hx at time of visit. No reported poor intake per admit H&P. Pt wt stable x 1 yr per prior admit wt of 132#. Pt educated on DM diet restrictions at prior admit, will address education needs at follow up visit. Chart reviewed. Labs and meds reviewed. Primary Diagnose(s): DKA, severe sepsis PMH: DM2, Afib, HTN, CHF, hypothyroidism, diverticulosis GI: LBM 09/02 Skin: R foot - diabetic wound, cellulitis Labs: (09/03) Na 133, K 4.1, BUN 46, Cr 1.87, Ca 7.6 (08/31) Na 149, K 3.3, BUN 59, Cr 1.94, gluc 114, POC Gluc 82-107, Ca 8 Meds: insulin, lovenox, protonix, levothyroxine Ht: 62 in Wt: 146 lbs (09/02) 131 lb (08/24) Suspect possible weight error BMI: 26.7 kg/m2 IBW: 110 lb Malnutrition Evaluation (09/04/19) The patient does not meet criteria for a specified degree of malnutrition at this time. Will re-evaluate at follow-up as appropriate. Energy intake: <75% of estimated energy requirements for >7 days Weight loss: unable to assess Fat loss: none, ample triceps fold thickness Muscle loss: none, shoulder round Supporting Evidence: Fluid accumulation: none Functional Status: unable to evaluate Nutrition Prescription (Diet Order): full liquids, Glucerna shake TID Estimated Nutritional Needs: 9861-2528 calories/day (18-20 kcal/kg CBW) Weigh used: 146 lbs 66-99 g protein/day (1-1.5 g pro/kg CBW) Weigh used: 146 lbs Diet Adequacy: Not meeting calorie needs, Not meeting protein needs Diet Tolerance: RN reports pt is not eating anything at this time Diet education: patient not appropriate for education at this time due to AMS. Nutrition Care Level: high Nutrition Diagnosis: Inadequate energy and protein intake related to AMS as evidenced by not meeting needs. Goal: Patient will meet 75-100% of estimated needs by follow up Progress: not progressing Interventions: -carbohydrate-modified diet, Commercial beverage, Recommended Modifications, Multivitamin/mineral supplement therapy, Collaboration with other providers Monitoring/Evaluation: -Total energy intake, Total protein intake, Modified diet, Liquid supplement Signed: Mary Grace Rosales RD, LD
[2019-09-04] MEDS: AMPICILLIN SOD 2 GM/NS 100ML 100 ML IV SCH (20:00)
[2019-09-04] MEDS: ACYCLOVIR SODIUM 700 MG in SODIUM CHLORIDE 0.9% 250ML 250 ML IV SCH (22:00)
[2019-09-05] VITALS (8 sets, daily range): BP systolic 129–155; BP diastolic 55–99
[2019-09-05] MEDS: LEVOTHYROXINE SODIUM 100 MCG/VIAL IV SCH (05:55)
[2019-09-05] MEDS: ACYCLOVIR SODIUM 700 MG in SODIUM CHLORIDE 0.9% 250ML 250 ML IV SCH (06:00)
[2019-09-05 06:13] LABS: ALBUMIN 1.4 g/dL (3.5-5.0); ALBUMIN/GLOBULIN RATIO 0.4 (0.8-2.0); ANION GAP 19.1 mmol/L (8-16); CALCIUM 7.9 mg/dL (8.4-10.2); CREATININE, SERUM 1.82 mg/dL (0.57-1.11); POTASSIUM 4.1 mmol/L (3.5-5.1)
[2019-09-05] MEDS: FLUCONAZOLE 100 MG/NS 50 ML 50 ML IV SCH (06:29)
--- NOTE | 2019-09-05 06:57 | Progress Note ---
DATE: SUBJECTIVE: The patient is a 79-year-old female, who came in with sepsis bacteremia. The patient also had diabetic ketoacidosis, off the drip. The patient also came in with acute chronic mental status changes, metabolic encephalopathy, E coli, urinary tract infection, and the patient with a history of congestive heart failure, acute on chronic systolic heart failure and paroxysmal atrial fibrillation. The patient continues to be confused and mumbling with an unintelligible words. OBJECTIVE: VITAL SIGNS: At this time, temperature is 97.7, pulse of 97, respirations of 24, blood pressure is 130/62, and pulse oximetry of 99% on 2 L of oxygen. HEENT: Normocephalic and atraumatic. Pupils are reactive. CVS: S1 and S2 regular. ABDOMEN: Nontender, nondistended. EXTREMITIES: Positive for multiple excoriations and also edematous in both bilateral upper and lower extremities. LABORATORY VALUES: White count is still 22,000 , hemoglobin of 8.4, hematocrit 26.1, and neutrophil count of 91. Chemistry shows sodium 133, potassium 4.1, BUN 46, creatinine of 1.87 with EGFR of 46. Vancomycin trough earlier on was high, but currently not on vanc. MEDICATIONS: The patient is on acyclovir q.8 hours, insulin sliding scale, Lovenox for DVT prophylaxis. She is on ampicillin sodium q.12 hours, sodium bicarbonate 650 mg b.i.d. for metabolic acidosis, amiodarone 200 mg for atrial fibrillation, Rocephin, pantoprazole for GI prophylaxis and bicarb drip again for acidosis. MICROBIOLOGY: Urine culture grew Sarah albicans. Foot culture grew Streptococcus agalactiae and urine culture grew E coli. ASSESSMENT: Ms. Johnson is a 79-year-old female with sepsis, with elevated leukocytosis, urinary tract infection, diabetic ketoacidosis and metabolic acidosis, acute mental status changes, atrial fibrillation, acute on chronic congestive heart failure. PLAN: The patient remains on 3 antibiotics. We will continue the same depending on the cultures. Dr. Barreto is on the case, Dr. Means and Dr. Joseph, Cardiology is on the case. Has been seen by Dr. Jesus for acute mental status changes. EEG was ordered, pending results not able to be viewed all pending. Continue with current management. Further recommendation per clinical course and we will continue to monitor the patient along with consultants. MD SUKUMAR Galo/ILDA /[id number]
[2019-09-05] MEDS: INSULIN LISPRO 100 UNIT/1 ML 3ML VIAL SQ SCH ×4 (07:30→20:40)
[2019-09-05] MEDS: CEFTRIAXONE SOD 1 GM/NS 50 ML 50 ML IV SCH (08:00)
[2019-09-05] MEDS: PANTOPRAZOLE 40 MG 10ML VIAL IV SCH (08:00)
[2019-09-05] MEDS: AMIODARONE HCL 200 MG TAB PO SCH (08:02)
[2019-09-05] MEDS: ENOXAPARIN 30 MG/0.3 ML SYR SC SCH ×2 (08:02→21:42)
[2019-09-05] MEDS: SODIUM BICARBONATE 650 MG TAB PO SCH ×2 (08:03→18:28)
[2019-09-05] MEDS: AMPICILLIN SOD 2 GM/NS 100ML 100 ML IV SCH ×2 (08:59→20:22)
[2019-09-05] MEDS: INSULIN GLARGINE 100 UNITS/ML VIAL SQ SCH (09:22)
[2019-09-05] MEDS ORDERED: FUROSEMIDE INJ 10 MG/ML 2 ML VIAL IV ONE (10:45)
[2019-09-05] MEDS: BALSAM PERU/CASTOR OIL 60 GM OINT...G. TP SCH (11:30)
[2019-09-05] MEDS: COLLAGENASE 5 GM TUBE TOP SCH ×2 (11:33→18:07)
[2019-09-05] MEDS: SODIUM BICARBONATE 8.4% SYRING 75 ML in SODIUM CHLORIDE 0.45% 1,000 ML IV SCH ×2 (11:33→23:50)
--- NOTE | 2019-09-05 12:03 | Progress Note ---
DATE: SUBJECTIVE: The patient is more awake. The patient has less cough and congestion. The patient went for LP yesterday. OBJECTIVE: VITAL SIGNS: The blood pressure is 154/71, saturation is 98% on 2 L and the pulse is 87. Respiratory rate is 22. HEENT: Shows no facial swelling or erythema. CARDIAC: Reveals regular rate and rhythm with normal S1 and S2. LUNGS: Auscultation of lungs shows decreased breath sounds at the bases. There is no wheezing. ABDOMEN: Soft, nontender. There is no rebound or guarding. EXTREMITIES: Shows no leg edema or calf tenderness. There is no cyanosis or clubbing. LABORATORY DATA: BUN to creatinine ratio is 46 to 1.82. The carbon dioxide is 20 and chloride is 102. The albumin is 1.4. The white blood cell count is 22 and hemoglobin is 8.4. The platelet count is 431. ASSESSMENT: 1. Metabolic encephalopathy. 2. Strep bacteremia and possible osteomyelitis. 3. Diabetes. 4. Anemia. 5. Acute on chronic renal failure. PLAN: 1. Discuss antibiotics and LP results with Infectious Disease and Neurology. 2. Continue to monitor blood sugars. 3. Continue to monitor kidney status. Augusto Roberts MD [facility]/ILDA /[id number]
--- NOTE | 2019-09-05 12:13 | Progress Note ---
DATE: 09/05/2019 SUBJECTIVE: The patient did not appear to be in any acute distress, but did look somewhat ill. I's and O's 1340 in and out. She was given 20 mg of Lasix IV yesterday. OBJECTIVE: VITAL SIGNS: Blood pressure was 154/71, respirations 22, heart rate 87, and temperature 97.6. HEENT: Head is atraumatic, normocephalic. CHEST: Revealed fair air entry with diffuse crackles. HEART: S1, S2. ABDOMEN: Soft, but obese. Bowel sounds are positive. EXTREMITIES: Trace edema. CUSTOMER ACCOUNT EXECUTIVE: She was awake, but looked somewhat lethargic. LABORATORY DATA: Yesterday white cell count 22, hemoglobin 8.1, hematocrit 26.1, and platelets 431. Chemistry, sodium 137, potassium 4.1, chloride 102, CO2 of 20, BUN 46, and creatinine 1.32, it was 1.87 yesterday, and glucose 109. IMPRESSION: 1. Ddwyk-db-ltbbpvw kidney disease with relatively stable serum creatinine for the last several days between 1.8 and 2 mg/dL. 2. Mild volume overload. 3. Relatively stable electrolytes and metabolic profile. 4. Change in mental status, status post lumbar puncture yesterday. PLAN: Continue present treatment. Give Lasix 20 mg IV one dose now. Check BMP in a.m. Further recommendations to follow. Yesenia Zhang MD [facility]/ILDA /[id number]
--- NOTE | 2019-09-05 16:30 | NUR ---
PROGREE NOTE MORE ALERT [id number]
--- NOTE | 2019-09-05 17:30 | Consultation ---
DATE OF CONSULTATION: 09/05/2019 SUBJECTIVE: The patient at bedside, accompanied by a nurse. Still kind of confused. OBJECTIVE: VITAL SIGNS: Afebrile, pulse rate 80, did peak pulse rate of 103 at 10:00 a.m., respiratory rate 22, blood pressure 130/55, and O2 saturation 95%. LABORATORY DATA: White blood cell count noted to be 22.06. Has cellulitis to the right ankle and dorsal aspect of right foot. Some more necrosis noted overlying the dorsal aspect of the 1st metatarsophalangeal joint. Negative foul smell. Some purulent drainage throughout the forefoot of the right lower extremity. There is tendon exposed with bone exposed to the medial malleolar ulcer measuring more than 4-5 cm in diameter. Ulceration dorsal aspect 1st MPJ approximately 2.5 to 3 cm in diameter, tracking laterally overlying the midshaft of the 4th metatarsal. ASSESSMENT: Grade 4 ulceration, osteomyelitis, cellulitis with a grade 3 ulcer dorsal aspect right foot. PLAN: Sharp excisional debridement was carried down to muscle and tendon. Devitalized tissue sharply excised until good viable bleeding tissue was achieved. Sterile dressing was applied with Santyl followed by diluted wet-to-dry Betadine. X-rays of the foot and ankle will be taken. We will continue local wound care. Continue IV antibiotics. LANDEN Moya/ILDA /[id number]
[2019-09-05] MEDS: ACYCLOVIR SODIUM INJ 500 MG in SODIUM CHLORIDE 0.9% 100 ML 100 ML IV SCH (18:20)
--- NOTE | 2019-09-05 20:00 | Progress Note ---
DATE: SUBJECTIVE: Ms. Phillips seem to be little bit more alert today. LABORATORY DATA: Reviewed. She underwent debridement by Dr. Means for the foot. Her urine is showing Sarah albicans. Her white count today is 18.7, hemoglobin 7.8. Her sodium 137, potassium 4.1, creatinine 1.82. Her spinal fluid reviewed. She had WBC of 10, RBC of 372. IMPRESSION: 1. Altered mental status, concerned meningeal encephalitis. Still waiting on Herpes simplex virus 1 and Herpes simplex virus 2 PCR. Continue acyclovir and ampicillin since the differential diagnosis could be HSV versus listeria versus other. 2. Bacteremia with strep B resolved. 3. Urinary tract infection with Escherichia coli, resolved. 4. Candidemia, we will add Diflucan. 5. . 6. We will follow. MD GRACE Leo/MODCorinne /[id number]
--- NOTE | 2019-09-05 21:18 | Diagnostic Imaging Report ---
Foot complete CPT code: 37211 Indication: ^ Osteomyelitis/infection ^[id number] ^2029 ^Y Technique: A.P., oblique and lateral views of the right foot obtained. Comparison: 09/02/2019 Findings: The bones are diffusely demineralized. Calcaneus is intact with a small plantar spur. The midfoot is intact. No evidence of displaced fracture or dislocation involving any of the digits. No periosteal new bone formation or erosions. There are vascular calcifications in the soft tissues. Soft tissue swelling of the lateral ankle/hindfoot. No radiopaque foreign body or subcutaneous emphysema. IMPRESSION: No radiographic evidence of osteomyelitis. Signed by: Dr. Marc Castañeda MD on 09/05/2019 9:15 PM
--- NOTE | 2019-09-05 21:21 | Diagnostic Imaging Report ---
Ankle complete CPT CODE: 93259 HISTORY: Osteomyelitis/infection TECHNIQUE: Three views right ankle obtained COMPARISON: Foot x-rays 09/02/2019. FINDINGS: The distal tibia and fibula appear intact. Ankle mortise is symmetric. There is diffuse bimalleolar soft tissue swelling. There is a focus of subcutaneous emphysema in the medial malleolus. No adjacent periosteal new bone formation or cortical erosion. The calcaneus appears intact with small plantar spur. The visualized portions of the midfoot and forefoot are intact. There are diffuse vascular calcifications. No radiopaque foreign bodies in the soft tissues. IMPRESSION: No radiographic evidence of osteomyelitis. Signed by: Dr. Marc Castañeda MD on 09/05/2019 9:17 PM
[2019-09-05 21:32] LABS: BASOPHILS % 0.1 % (0.0-1.0); HEMATOCRIT 23.5 % (34.2-44.1); HEMOGLOBIN 7.6 g/dL (12.0-16.0); LYMPHOCYTES # (AUTO) 0.5 (1.0-3.2); LYMPHOCYTES % 3.1 % (18.0-39.1); MEAN CORPUSCULAR HEMOGLOBIN 32.2 pg (28-32); MEAN CORPUSCULAR HGB CONC 32.3 g/dL (31-35); MEAN CORPUSCULAR VOLUME 99.6 fL (81-99); MONOCYTES # (AUTO) 0.4 (0.2-0.8); MONOCYTES % 2.1 % (4.4-11.3); NEUTROPHILS # (AUTO) 15.7 (2.1-6.9); NEUTROPHILS % 93.1 % (38.7-80.0); PLATELET COUNT 286 x10e3/uL (140-360); RED BLOOD COUNT 2.36 x10e6/uL (3.6-5.1); RED CELL DISTRIBUTION WIDTH 15.2 % (11.7-14.4)
[2019-09-05 21:49] LABS: ANION GAP 18.9 mmol/L (8-16); CALCIUM 7.7 mg/dL (8.4-10.2); CREATININE, SERUM 1.82 mg/dL (0.57-1.11); POTASSIUM 3.9 mmol/L (3.5-5.1)
[2019-09-05] MEDS ORDERED: ACYCLOVIR SODIUM 700 MG in SODIUM CHLORIDE 0.9% 250ML 250 ML IV SCH (22:00)
[2019-09-05 22:05] LABS: BAND NEUTROPHILS % (MANUAL) 1 %; LYMPHOCYTES % (MANUAL) 4 % (19-48); MONOCYTES % (MANUAL) 2 % (3.4-9.0); NEUTROPHILS % (MANUAL) 93 % (40-74); PLATELET ESTIMATE ADEQUATE; PLATELET MORPHOLOGY COMMENT NORMAL; RBC MORPHOLOGY COMMENT NORMAL
[2019-09-05] MEDS: HYDRALAZINE HCL 20 MG/ML VIAL IV PRN (23:27)
[2019-09-05] MEDS: RISPERIDONE 0.5 MG TAB PO PRN (23:45)
[2019-09-06] VITALS (8 sets, daily range): BP systolic 113–147; BP diastolic 51–83
[2019-09-06 05:31] LABS: BASOPHILS # (AUTO) 0.1 (0.0-0.1); BASOPHILS % 0.2 % (0.0-1.0); HEMATOCRIT 23.5 % (34.2-44.1); HEMOGLOBIN 7.5 g/dL (12.0-16.0); LYMPHOCYTES # (AUTO) 0.2 (1.0-3.2); LYMPHOCYTES % 1.2 % (18.0-39.1); MEAN CORPUSCULAR HEMOGLOBIN 31.8 pg (28-32); MEAN CORPUSCULAR HGB CONC 31.9 g/dL (31-35); MEAN CORPUSCULAR VOLUME 99.6 fL (81-99); MONOCYTES # (AUTO) 0.4 (0.2-0.8); MONOCYTES % 1.8 % (4.4-11.3); NEUTROPHILS # (AUTO) 19.6 (2.1-6.9); NEUTROPHILS % 95.2 % (38.7-80.0); PLATELET COUNT 328 x10e3/uL (140-360); RED BLOOD COUNT 2.36 x10e6/uL (3.6-5.1); RED CELL DISTRIBUTION WIDTH 15.1 % (11.7-14.4)
[2019-09-06 05:52] LABS: ALBUMIN 1.6 g/dL (3.5-5.0); ALBUMIN/GLOBULIN RATIO 0.4 (0.8-2.0); CREATININE, SERUM 1.79 mg/dL (0.57-1.11)
[2019-09-06] MEDS ORDERED: ACETAMINOPHEN 325 MG TAB PO PRN (06:00)
[2019-09-06] MEDS: FLUCONAZOLE 100 MG/NS 50 ML 50 ML IV SCH (06:08)
[2019-09-06] MEDS: LEVOTHYROXINE SODIUM 100 MCG/VIAL IV SCH (06:16)
[2019-09-06 07:13] LABS: % IRON SATURATION 15 % (15-50); IRON 32 ug/dL (50-170); TOTAL IRON BINDING CAPACITY 217 ug/dL (261-478); TRANSFERRIN 155 mg/dL (180-382)
[2019-09-06] MEDS: INSULIN LISPRO 100 UNIT/1 ML 3ML VIAL SQ SCH ×5 (07:30→21:00)
[2019-09-06] MEDS: AMPICILLIN SOD 2 GM/NS 100ML 100 ML IV SCH ×2 (08:12→20:58)
[2019-09-06] MEDS: INSULIN GLARGINE 100 UNITS/ML VIAL SQ SCH (09:00)
[2019-09-06] MEDS: PANTOPRAZOLE 40 MG 10ML VIAL IV SCH (09:22)
[2019-09-06] MEDS: AMIODARONE HCL 200 MG TAB PO SCH (09:22)
[2019-09-06] MEDS: SODIUM BICARBONATE 650 MG TAB PO SCH ×2 (09:22→17:00)
[2019-09-06] MEDS: ENOXAPARIN 30 MG/0.3 ML SYR SC SCH ×2 (09:22→22:38)
[2019-09-06] MEDS: BALSAM PERU/CASTOR OIL 60 GM OINT...G. TP SCH (09:24)
[2019-09-06 09:33] LABS: BAND NEUTROPHILS % (MANUAL) 1 %; LYMPHOCYTES % (MANUAL) 3 % (19-48); MONOCYTES % (MANUAL) 1 % (3.4-9.0); NEUTROPHILS % (MANUAL) 95 % (40-74)
--- NOTE | 2019-09-06 09:42 | Progress Note ---
DATE: SUBJECTIVE: The patient is a 79-year-old female who came in with acute sepsis, cellulitis of the foot. The patient is very confused, talking but in intelligible words, sometimes slips in and out of cognition. No complaints from nursing staff. She had bowel movements. Urine output is on the lower side 250 for the last nightshift. OBJECTIVE: VITAL SIGNS: Temperature 97.2, pulse of 84, respirations of 24, blood pressure is 124/83 and pulse oximetry 96% on 2 L. HEENT: Normocephalic, atraumatic. Pupils are reactive. CVS: S1 and S2. Regular. ABDOMEN: Slightly tender in the epigastric area. EXTREMITIES: No clubbing. Positive for edema on bilateral arms. Multiple excoriations, multiple ecchymoses present on the arms also. NEUROLOGIC: Mental status; as mentioned above confused and alert. LABORATORY VALUES: White count is 20,000, hemoglobin of 7.5 and hematocrit of 23.5, RDW is 15.1, and MCV is high. Neutrophil count of 19.6. Chemistry: Sodium 140, potassium 4.0, BUN of 48 and creatinine of 1.79. Coags; INR is 1.76 and immunological studies are pending. ASSESSMENT: Ms. Elizabeth Phillips with: 1. Metabolic encephalopathy. 2. Leukocytosis. 3. Sepsis. 4. History of diabetic ketoacidosis, resolved. 5. Atrial fibrillation. 6. Acute on chronic congestive heart failure. PLAN: Continue on antibiotic. Trend her electrolytes. The patient also has possible iron deficiency anemia. Check her iron levels. Continue to monitor the patient's mental status. Further recommendation per clinical course. The patient's right foot is bandaged and will need further care and Dr. Means is on board. The patient had a debridement yesterday by Dr. Means. Devitalized tissues were removed. Further recommendation per clinical course. We will continue IV antibiotics and follow up with the patient and the consultants. MD SUKUMAR Galo/MODL /[id number]
--- NOTE | 2019-09-06 09:48 | NUR ---
awake, responds to questions follows commands alert 96.6 71 147/57 awake responsive no meningismus or nuchal rigidity. erica-orbital edema pupils reactive no nuchal rigidity no bruits rrr cta abd soft no guarding moves all 4 extremities symmetrically 3/5 away from nox stim sensory grossly symmetric responds to verbal /auditory stim and consistent with following simple commands a/p- sepsis as per primary team agitated delirium- toxic + metabolic and infectious etiologies, no evidence of meningitis based on clinical exam reactive /chemical meningitis- supportive care no evidence of infectious etiology EEG encephalopathic, will repeat to trend improvement. non-epileptic CT diffuse white matter disease, non focal and no evidence of acute injury elevated myoglobin- patient may be having myositis vs reaction to continuous movement, myostic workup will be sent, outpt EMG ncv and possible muscle biospy depending on symptom recovery. 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
--- NOTE | 2019-09-06 10:55 | NUR ---
Dr. Rosie Means rounding while I was changing patient's right foot dressing, addressed with Dr. Means patient's uncontrolled bleeding from previously debridement to the right foot, and pallor to middle digit, Dr. Means completed the dressing change Kerlix wrapped. Advised to call daughter and asked daughter to be here in the morning to speak with her.
--- NOTE | 2019-09-06 11:52 | Progress Note ---
DATE: 09/06/2019 SUBJECTIVE: The patient is seen at bedside, accompanied by nurses. Still somewhat confused. OBJECTIVE: VITAL SIGNS: Afebrile, pulse rate 84, respirations 24, blood pressure 124/83, and O2 saturation 96%. EXTREMITIES: Ulcerations to the dorsal aspect of right foot and medial aspect of the right ankle inspected. Still some drainage noted. Some necrosis noted down the bone, dorsal aspect of the 1st metatarsophalangeal joint crossing all way down to the 4th metatarsal midshaft area with a grade 4 ulceration, right ankle measuring more than 4-5 cm in diameter with some granulation tissue started, still some necrosis. Pedal pulses are diminished. LABORATORY DATA: Labs noted. White blood cell count going up once again to 20.5, hemoglobin 7.5 with a platelet count of 328. INR of 1.76. ASSESSMENT: Peripheral arterial disease, cellulitis with multiple grade 4 ulcers with possible osteomyelitis. PLAN: X-rays reveal no gas in the tissue. Dressing was changed. We will continue IV antibiotics and local wound care. Prognosis is guarded. Continue offloading. LANDEN Moya/ILDA /[id number]
--- NOTE | 2019-09-06 12:48 | Electroencephalogram ---
DATE OF STUDY: 09/02/2019 REQUESTING PHYSICIAN: STUDY: 30-minute EEG. To evaluate for severe delirium and agitated encephalopathy. EEG DATA: This EEG is done on 10-20 international electrode placement system, recorded with video. bipolar and referential montages. EEG data shows a high amplitude diffuse slow waves in the delta frequencies, 2 to 4 hertz. Other times rhythmic. Absence of anterior beta frequencies. Posterior dominant rhythms are either very slow or purely absent for the most part. No evidence of . Overall, this EEG is abnormal level 3 for severe diffuse encephalopathy with rhythmic slowing. No evidence of seizures are captured during this recording. KAY BERMUDEZ MD RR/MODL /[id number]
[2019-09-06] MEDS: SODIUM BICARBONATE 8.4% SYRING 75 ML in SODIUM CHLORIDE 0.45% 1,000 ML IV SCH (14:08)
--- NOTE | 2019-09-06 15:47 | NUR ---
DATE: 09/06/2019 SUBJECTIVE: The patient did not appear to be in any acute distress, but did look somewhat ill. I's and O's 1900 in and _1200 out. She was given 20 mg of Lasix IV yesterday. OBJECTIVE: VITAL SIGNS: Blood pressure was 145/74, respirations 20, heart rate 82, and temperature 98.6. HEENT: Head is atraumatic, normocephalic. CHEST: Revealed fair air entry with diffuse crackles. HEART: S1, S2. ABDOMEN: Soft, but obese. Bowel sounds are positive. EXTREMITIES: Trace edema. PRODUCTION SUPPLY EQUIPMENT TENDER: Lethargic. LABORATORY DATA: reviewed. IMPRESSION: 1. Ljuxo-fu-doolytd kidney disease with relatively stable serum creatinine for the last several days between 1.8 and 2 mg/dL. 2. Mild volume overload. 3. Relatively stable electrolytes and metabolic profile. 4. Change in mental status, status post lumbar puncture 09/03. 5. Metabolic Acidosis - started on Bicarb PLAN: Continue present treatment. Give Lasix 20 mg IV one dose now. Check BMP in a.m.
--- NOTE | 2019-09-06 16:00 | NUR ---
Called Dr. Barreto to notify him patient temperature 94.5 rectally and to inform him patient was placed on the warmer, recived orders to give vancomycin 1 gram one time, and to do a chest x-ray portable.
[2019-09-06] MEDS ORDERED: VANCOMYCIN 1GM/NS 250 ML 250 ML IV ONE (17:15)
--- NOTE | 2019-09-06 17:36 | Diagnostic Imaging Report ---
EXAMINATION: CHEST SINGLE (PORTABLE) INDICATION: Rule out pneumonia. COMPARISON: Chest radiograph 09/03/2019. FINDINGS: TUBES and LINES: Left-sided AICD with leads in unchanged position. Right IJ central venous catheter with tip in the right atrium. LUNGS: Low lung volumes. Persistent mild interstitial opacities with bibasilar patchy opacities. Unchanged elevation of the right hemidiaphragm. PLEURA: Small right greater than left pleural effusions. No pneumothorax. HEART AND MEDIASTINUM: The cardiomediastinal silhouette is mildly enlarged. BONES AND SOFT TISSUES: No acute osseous abnormality. Partially seen cervical spine fixation hardware. UPPER ABDOMEN: No free air under the diaphragm. IMPRESSION: Findings of mild pulmonary interstitial edema. Small right greater than left pleural effusion with bibasilar opacities, which may represent atelectasis or pneumonia in the appropriate clinical setting. Signed by: Dr. Nahomy Bardales MD on 09/06/2019 5:33 PM
--- NOTE | 2019-09-06 18:45 | Progress Note ---
DATE: SUBJECTIVE: Ms. Phillips is confused, but according to the team, she is better. REVIEW OF SYSTEMS: Cannot be obtained. PHYSICAL EXAMINATION: GENERAL: Currently alert, confused. VITAL SIGNS: Stable. Afebrile. HEENT: She is not icteric. NECK: Supple. CHEST: Clear. HEART: S1, S2. No S3, S4 or murmurs. ABDOMEN: Soft. LABORATORY DATA: Her white count went up to 20, hemoglobin is 7.5. Her sodium 140, potassium 4.0 with a creatinine of 1.79. Her HSV PCR is still pending. IMPRESSION: 1. Altered mental status. We are still awaiting for HSV PCR. Continue acyclovir. Continue ampicillin. 2. Funguria. Strep agalactiae group B admission on 08/23 to finish 14 days of IV antibiotic. She is currently on ampicillin. 3. Chronic kidney disease. 4. Bacteriuria, funguria, on fluconazole. We will follow. MD GRACE Leo/ILDA /[id number]
--- NOTE | 2019-09-06 19:00 | NUR ---
Handoff report to oncoming nurse, made aware right foot dressing unable to change, patient placed with bear hugger for hypothermia.
[2019-09-06] MEDS: ACYCLOVIR SODIUM INJ 500 MG in SODIUM CHLORIDE 0.9% 100 ML 100 ML IV SCH (19:59)
--- NOTE | 2019-09-06 20:00 | NUR ---
Patient's daughter visiting per daughter's request she would like to speak to attending MD about DNR, she was made aware Dr. Orestes Starkey is covering for Dr. Knapp, I asked the daughter if she would like for me to call Dr. Starkey to discuss code status, she responded she will address it in the tomorrow when she comes to visit.
[2019-09-06] MEDS: COLLAGENASE OINTMENT 30 GM TUBE TOP SCH (22:00)
--- NOTE | 2019-09-06 22:54 | NUR ---
patient temp at this time is 97.7 axiliary. she is awake open eyes. dressing to right foot changed, bleeding noted. put pressure on it to stop bleeding. will continue to monitor.
[2019-09-07] VITALS (10 sets, daily range): BP systolic 116–172; BP diastolic 46–108
--- NOTE | 2019-09-07 03:41 | Progress Note ---
DATE: 09/05/2019 Cardiology Progress Note SUBJECTIVE: No major events. Denies any shortness of breath or chest pain. OBJECTIVE: VITAL SIGNS: Temperature afebrile, pulse is 80, respiratory rate 22, blood pressure , O2 saturating 95% on room air. GENERAL: Elderly female, in no acute distress. CARDIOVASCULAR: Regular rate and rhythm. No murmurs, rubs, or gallops. LUNGS: Decreased breath sounds at the bases. Otherwise clear to auscultation anteriorly. Abdomen: Soft, nontender, and nondistended. NEURO AND PSYCH: Alert and oriented to person, place, and time. Normal affect. INPATIENT MEDICATIONS: Reviewed. LABORATORY DATA: Reviewed. TELEMETRY: Reviewed, shows paced rhythm. ASSESSMENT AND PLAN: 1. Group B strep bacteremia. 2. Right foot wound. 3. Diabetic ketoacidosis. 4. Acute kidney injury. 5. Altered mental status. 6. Escherichia coli urinary tract infection. 7. Peripheral artery disease. 8. Chronic systolic heart failure. 9. Paroxysmal atrial fibrillation. RECOMMENDATIONS: Continue supportive care. Remains stable from cardiovascular standpoint. She has had AV node ablation and is otherwise biventricularly paced, so she does not need any for rate control, can decrease metoprolol and start amiodarone as needed. Given clinical condition and do not plan on doing any peripheral angiography for now. Once she recovers from this acute episode, we will discuss peripheral angiogram and possible intervention. Thank you for this consult. We will continue to follow. MD ADELIA Salazar/ILDA /[id number]
--- NOTE | 2019-09-07 04:01 | Progress Note ---
DATE: 09/06/2019 Cardiology Progress Note SUBJECTIVE: The patient is altered, hypothermic today, not responding. OBJECTIVE: VITAL SIGNS: Temperature 94.5, pulse 93, respiratory rate 19, blood pressure 113/68, saturating 99% on 2 L nasal cannula. GENERAL: Elderly female, altered. CARDIOVASCULAR: Regular rate and rhythm. No murmurs, rubs, or gallops. LUNGS: Clear to auscultation anteriorly, ABDOMEN: Soft, nontender, nondistended. NEURO AND PSYCH: Alert and oriented to person, place, and time. Normal affect. INPATIENT MEDICATIONS: Reviewed. LABORATORY DATA: Reviewed. TELEMETRY DATA: Reviewed, shows ventricular paced rhythm. ASSESSMENT AND PLAN: 1. Right foot wound. 2. Group B streptococcus bacteremia. 3. Diabetic ketoacidosis. 4. Qianj-fi-juhzgec kidney disease. 5. Altered mental status. 6. Escherichia coli urinary tract infection. 7. Peripheral arterial disease. 8. Coronary artery disease, status post PCI to the RCA in the past. 9. Paroxysmal atrial fibrillation, status post AV node ablation and BiV placement. RECOMMENDATIONS: The patient had AV node ablation for AFib, rate control is not of any concern. Decrease metoprolol, hold as necessary. Altered mental status suspect due to worsening sepsis with metabolic encephalopathy. Continue supportive care. Wound infection issues improved and renal function improved. We will discuss peripheral angiography. Thank you for this consult. We will continue to follow. MD ADELIA Salazar/FARSHADL /[id number]
[2019-09-07] MEDS: SODIUM BICARBONATE 8.4% SYRING 75 ML in SODIUM CHLORIDE 0.45% 1,000 ML IV SCH ×2 (04:30→18:50)
[2019-09-07 05:13] LABS: BASOPHILS % 0.2 % (0.0-1.0); LYMPHOCYTES # (AUTO) 0.5 (1.0-3.2); MEAN CORPUSCULAR HEMOGLOBIN 31.7 pg (28-32); MEAN CORPUSCULAR HGB CONC 31.6 g/dL (31-35); MEAN CORPUSCULAR VOLUME 100.5 fL (81-99); MONOCYTES # (AUTO) 0.4 (0.2-0.8); MONOCYTES % 2.8 % (4.4-11.3); NEUTROPHILS # (AUTO) 14.7 (2.1-6.9); NEUTROPHILS % 92.7 % (38.7-80.0); PLATELET COUNT 305 x10e3/uL (140-360); RED BLOOD COUNT 2.08 x10e6/uL (3.6-5.1); RED CELL DISTRIBUTION WIDTH 15.3 % (11.7-14.4)
[2019-09-07 05:27] LABS: HEMATOCRIT 20.9 % (34.2-44.1); HEMOGLOBIN 6.6 g/dL (12.0-16.0)
[2019-09-07] MEDS ORDERED: SODIUM CHLORIDE 0.9% 250ML 250 ML IV ONE (05:30)
[2019-09-07 05:31] LABS: ANION GAP 19.8 mmol/L (8-16); CALCIUM 7.8 mg/dL (8.4-10.2); CREATININE, SERUM 1.82 mg/dL (0.57-1.11); POTASSIUM 3.8 mmol/L (3.5-5.1)
[2019-09-07 05:47] LABS: ALBUMIN 1.5 g/dL (3.5-5.0); ALBUMIN/GLOBULIN RATIO 0.4 (0.8-2.0); MAGNESIUM 1.6 MG/DL (1.3-2.1)
--- NOTE | 2019-09-07 05:58 | NUR ---
called and left a message to patient's daughter, Jeny, trying to get a consent for blood transfusion. awaiting for call back.
[2019-09-07] MEDS: LEVOTHYROXINE SODIUM 100 MCG/VIAL IV SCH (06:00)
[2019-09-07] MEDS: FLUCONAZOLE 100 MG/NS 50 ML 50 ML IV SCH ×2 (06:00→09:34)
[2019-09-07] MEDS: INSULIN LISPRO 100 UNIT/1 ML 3ML VIAL SQ SCH ×4 (07:30→20:41)
[2019-09-07 07:48] LABS: LYMPHOCYTES % (MANUAL) 2 % (19-48); MONOCYTES % (MANUAL) 1 % (3.4-9.0); NEUTROPHILS % (MANUAL) 97 % (40-74)
[2019-09-07 07:49] LABS: ANISOCYTOSIS SLIGHT; PLATELET ESTIMATE ADEQUATE; PLATELET MORPHOLOGY COMMENT NORMAL; RBC MORPHOLOGY COMMENT NORMAL
[2019-09-07] MEDS: BALSAM PERU/CASTOR OIL 60 GM OINT...G. TP SCH (08:43)
[2019-09-07] MEDS: BACITRACIN ZINC 15 GM OINT TOP SCH (08:43)
[2019-09-07] MEDS: COLLAGENASE OINTMENT 30 GM TUBE TOP SCH ×4 (08:43→20:51)
--- NOTE | 2019-09-07 08:44 | NUR ---
PT DAUGHTER AT BEDSIDE. AL ROUNDING, DAUGHTER RECORDED CONVERSATION WITHOUT CONSENT PER AL, HOUSE SUP NOTIFIED.
--- NOTE | 2019-09-07 08:45 | NUR ---
PT DAUGHTER AT BEDSIDE. AL ROUNDING, DAUGHTER RECORDED CONVERSATION WITHOUT CONSENT PER AL, HOUSE SUP NOTIFIED.
--- NOTE | 2019-09-07 08:50 | NUR ---
DR DOMONIQUE ESPITIA, REQUESTING NOONE TO CHANGE FOOT DRESSING DT BLEEDING, WILL DO TOMORROW MORNING WITH BEDSIDE JAYLEN
[2019-09-07] MEDS: PANTOPRAZOLE 40 MG 10ML VIAL IV SCH (08:59)
[2019-09-07] MEDS: ENOXAPARIN 30 MG/0.3 ML SYR SC SCH ×2 (08:59→20:32)
[2019-09-07] MEDS: AMPICILLIN SOD 2 GM/NS 100ML 100 ML IV SCH ×2 (08:59→20:32)
[2019-09-07] MEDS: SODIUM BICARBONATE 650 MG TAB PO SCH ×2 (09:00→15:27)
[2019-09-07] MEDS: AMIODARONE HCL 200 MG TAB PO SCH (09:00)
[2019-09-07] MEDS: INSULIN GLARGINE 100 UNITS/ML VIAL SQ SCH (09:13)
--- NOTE | 2019-09-07 10:42 | Progress Note ---
DATE: 09/07/2019 SUBJECTIVE: The patient is seen at bedside, accompanied by daughter, Jeny. The patient is still somewhat confused. OBJECTIVE: VITAL SIGNS: Afebrile, pulse rate 108, respirations 24, blood pressure 126/108, and O2 saturation 98%. EXTREMITIES: Ulceration to the medial aspect of the right ankle getting somewhat better, some granulation tissue. Still some necrosis noted tracking to bone with some drainage, but negative foul smell. Has a grade 3/4 ulceration dorsal aspect 1st metatarsophalangeal joint with tracking laterally overlying the 2nd, 3rd, 4th, and 5th midshaft area with extensor longus tendons exposed. Still some drainage, but negative foul smell. Has some bleeding noted. LABORATORY DATA: Show white blood cell count dropping from a peak of 22.06 to 15.83, hemoglobin low at 6.6 with a platelet count of 305. ASSESSMENT: Peripheral arterial disease, grade 4 ulcer, osteomyelitis with cellulitis. PLAN: Dressing was changed. Dressing will not be changed until tomorrow secondary to some bleeding. We will continue local wound care and IV antibiotics. The patient will be getting a couple units of blood today. Continue IV antibiotics. The patient's daughter informed the prognosis is guarded. LANDEN Moya/ILDA /[id number]
--- NOTE | 2019-09-07 10:48 | NUR ---
1X DOSE OF BENADRYL TO ASSIST WITH PT RESTLESSNESS FOR REPEAT EEG.
[2019-09-07] MEDS ORDERED: DIPHENHYDRAMINE HCL INJ 50 MG/ML VIAL IV SCH (11:10)
--- NOTE | 2019-09-07 11:23 | Progress Note ---
DATE: Cardiology Progress Note SUBJECTIVE: The patient is seen and evaluated. Daughter is in the room. Long conversation with the daughter. She was holding up her phone and asked towards the end of our conversation, if someone was listening to the conversation and she stated no, but she was recording the tape and I informed the daughter that she had no consent from me to tape our conversation. However, the daughter's questions were answered. She is complaining of her mom has loose black stool and she understands that her mom is very ill overall. REVIEW OF SYSTEMS: Unable to obtain review of system secondary to the patient's medical condition. PHYSICAL EXAMINATION: VITAL SIGNS: Temperature is 97.7, pulse is 108, respiration 24, blood pressure 126/108. GENERAL: Comfortable in bed with a warming blanket. The patient was hypothermic yesterday afternoon. Open eyes. CV: S1-S2. CHEST: Equal expansion. Decreased breath sounds. No acute distress. ABDOMEN: Soft. Obese. Positive bowel sounds. HEENT: Moist. No pallor. No JVD. EXTREMITIES: With edema, multiple wounds, on local care. MEDICATIONS: Medication is reviewed from Infectious Disease point of view, the patient is on ampicillin, acyclovir, and Diflucan. LABORATORY STUDIES: White count improved to 15.83 from 20.56, hemoglobin is 6.6, platelets 305. Sodium 142, potassium 3.8, creatinine 1.82. MICROBIOLOGY: No new microbiology studies available. RADIOLOGY STUDIES: She had a chest x-ray yesterday finding compatible with mild pulmonary interstitial edema with right greater than left pleural effusion with bibasilar opacities, which may represent atelectasis or pneumonia in appropriate clinical settings. Serology, coronavirus PCR not detected on 08/23. HSV PCR is pending from 09/03. TASNEEM screen was negative. ASSESSMENT AND PLAN: 1. Altered mental status. The patient is status post lumbar puncture with a white count of 10. HSV PCR is pending. Continue with acyclovir and ampicillin. 2. Funguria, on Diflucan. 3. Streptococcus agalactiae bacteremia with group B on admission on 08/23, to complete 14 days of IV antibiotic, which currently on ampicillin. 4. Chronic kidney disease. 5. Anemia. 6. Multiple wounds. 7. Edema. 8. Continue antibiotics and antiviral and monitor the patient and follow with HSV PCR. Continue with the wound care. I had long discussion with the daughter, which I later on found out she was recording our conversation without my consent and I told her that she did not ask for my permission for the recording or conversation. Her all other questions answered. Discussed with Dr. Barreto and discussed with staff. Further management of this patient is based on daily findings on laboratory and physical examination. Dictated by Jemal Yanez PA-C (Al) Maurizio Barreto MD /FARSHADL /[id number] cc: Jemal Yanez PA-C (Al)
--- NOTE | 2019-09-07 11:59 | NUR ---
more lethergic today 97.7 108 126/108 lethargic but arousable no meningismus or nuchal rigidity. erica-orbital edema pupils reactive no nuchal rigidity no bruits rrr cta abd soft no guarding moves all 4 extremities symmetrically 3/5 away from nox stim sensory grossly symmetric responds to verbal /auditory stim and consistent with following simple commands a/p- sepsis as per primary team agitated delirium- toxic + metabolic and infectious etiologies, no evidence of meningitis based on clinical exam reactive /chemical meningitis- supportive care no evidence of infectious etiology EEG encephalopathic, will repeat to trend improvement. non-epileptic as per patients daughter who is in room, patient has hx of epilepsy as child CT diffuse white matter disease, non focal and no evidence of acute injury elevated myoglobin- patient may be having myositis vs reaction to continuous movement, myostic workup will be sent, outpt EMG ncv and possible muscle biospy depending on symptom recovery. 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
--- NOTE | 2019-09-07 14:45 | Progress Note ---
DATE: SUBJECTIVE: Ms. Phillips seems a bit more alert. Her daughter at the bedside. REVIEW OF SYSTEMS: HEENT: Negative. PULMONARY: Negative. PHYSICAL EXAMINATION: GENERAL: Currently alert and oriented. VITAL SIGNS: Stable, afebrile. HEENT: She is not icteric. NECK: Supple. CHEST: Clear. HEART: S1 and S2. No S3, S4, or murmur. ABDOMEN: Soft. IMPRESSION: 1. 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 It is hard to tell. She has a WBC of 10. Awaiting an HSV PCR. We called the labs . 2. Funguria. 3. Sepsis, on admission with Strep agalactiae group B. 4. Anemia of chronic disease, acute on chronic. 5. Chronic kidney disease. 6. Debility. Discussed with the daughter. We will follow. MD GRACE Leo/ILDA /[id number]
[2019-09-07] MEDS ORDERED: SODIUM CHLORIDE 0.9% 250ML 250 ML ONE ×2 (15:41→21:45)
[2019-09-07] MEDS: ACYCLOVIR SODIUM INJ 500 MG in SODIUM CHLORIDE 0.9% 100 ML 100 ML IV SCH (18:55)
[2019-09-07] MEDS: FUROSEMIDE INJ 10 MG/ML 4 ML VIAL IV PRN (18:55)
--- NOTE | 2019-09-07 19:20 | NUR ---
pt to have bovie with 2.0 vicral sutures and suture kit to bedside for dr raymundo tomorrow pt has recvd 1 of 2 PRBC, having 40lasix post transfusion, holding IVF during per MD
[2019-09-08] VITALS (9 sets, daily range): BP systolic 116–167; BP diastolic 48–108
[2019-09-08] MEDS: FUROSEMIDE INJ 10 MG/ML 4 ML VIAL IV PRN (01:51)
[2019-09-08 04:39] LABS: BASOPHILS % 0.3 % (0.0-1.0); HEMATOCRIT 31.8 % (34.2-44.1); HEMOGLOBIN 10.4 g/dL (12.0-16.0); LYMPHOCYTES # (AUTO) 0.9 (1.0-3.2); LYMPHOCYTES % 5.4 % (18.0-39.1); MEAN CORPUSCULAR HEMOGLOBIN 29.6 pg (28-32); MEAN CORPUSCULAR HGB CONC 32.7 g/dL (31-35); MONOCYTES # (AUTO) 0.5 (0.2-0.8); MONOCYTES % 3.4 % (4.4-11.3); NEUTROPHILS # (AUTO) 14.1 (2.1-6.9); NEUTROPHILS % 88.9 % (38.7-80.0); PLATELET COUNT 204 x10e3/uL (140-360); RED CELL DISTRIBUTION WIDTH 20.6 % (11.7-14.4)
[2019-09-08 04:52] LABS: MEAN CORPUSCULAR VOLUME 90.6 fL (81-99); RED BLOOD COUNT 3.51 x10e6/uL (3.6-5.1)
[2019-09-08 04:57] LABS: AMYLASE 306 U/L (25-125); LIPASE 63 U/L (8-78)
[2019-09-08 04:59] LABS: ALBUMIN 1.6 g/dL (3.5-5.0); ALBUMIN/GLOBULIN RATIO 0.4 (0.8-2.0); ANION GAP 20.7 mmol/L (8-16); CREATININE, SERUM 1.87 mg/dL (0.57-1.11); POTASSIUM 3.7 mmol/L (3.5-5.1)
[2019-09-08] MEDS: HYDRALAZINE HCL 20 MG/ML VIAL IV PRN (05:22)
[2019-09-08] MEDS ORDERED: ACETAMINOPHEN 1000 MG/100 ML IV STA (05:46)
[2019-09-08] MEDS ORDERED: SODIUM CHLORIDE 0.9% 250ML 250 ML ONE (05:54)
[2019-09-08] MEDS: LEVOTHYROXINE SODIUM 100 MCG/VIAL IV SCH (06:23)
[2019-09-08] MEDS: FLUCONAZOLE 100 MG/NS 50 ML 50 ML IV SCH (06:23)
[2019-09-08] MEDS ORDERED: LORAZEPAM INJ 2 MG/ML VIAL IV PRN (07:00)
[2019-09-08] MEDS: INSULIN LISPRO 100 UNIT/1 ML 3ML VIAL SQ SCH ×4 (07:30→19:52)
[2019-09-08] MEDS: AMIODARONE HCL 200 MG TAB PO SCH (08:58)
[2019-09-08] MEDS: BALSAM PERU/CASTOR OIL 60 GM OINT...G. TP SCH (08:58)
[2019-09-08] MEDS: ENOXAPARIN 30 MG/0.3 ML SYR SC SCH ×2 (08:58→20:00)
[2019-09-08] MEDS: BACITRACIN ZINC 15 GM OINT TOP SCH (08:58)
[2019-09-08] MEDS: AMPICILLIN SOD 2 GM/NS 100ML 100 ML IV SCH ×2 (08:58→19:53)
[2019-09-08] MEDS: PANTOPRAZOLE 40 MG 10ML VIAL IV SCH (08:58)
[2019-09-08] MEDS: SODIUM BICARBONATE 650 MG TAB PO SCH ×2 (08:58→16:15)
[2019-09-08] MEDS: INSULIN GLARGINE 100 UNITS/ML VIAL SQ SCH (09:00)
[2019-09-08] MEDS: SODIUM BICARBONATE 8.4% SYRING 75 ML in SODIUM CHLORIDE 0.45% 1,000 ML IV SCH (09:17)
--- NOTE | 2019-09-08 09:52 | Progress Note ---
DATE: SUBJECTIVE: The patient is seen and evaluated with Dr. Means, Podiatry in her room and also with the nurse in her room. The patient is awake and responds verbally, speaks a few words. No acute distress. I have seen this patient alert. No new events per my discussion with the nurse. OBJECTIVE: VITAL SIGNS: Temperature is 98.6 with a maximum temperature of 99.7 last night at around 8 o'clock, pulse is 87, respirations 22, blood pressure 167/68. GENERAL: The patient seems to be more alert and speaks a few words. Follows commands. CV: S1-S2. CHEST: Equal expansion. Decreased breath sounds. No acute distress. ABDOMEN: Obese, soft, nontender. Positive bowel sounds. HEENT: Moist. No pallor. No JVD. EXTREMITIES: 3+ edema. She moves all extremities weak, but she is weak in general. Left foot medial ankle wound seen also with dorsal aspect of the foot ulceration. The area seems to be larger, however, is not as much as necrotic tissue. MEDICATIONS: Medication list reviewed. As far as Infectious Disease point of view, the patient is on Diflucan, ampicillin, and acyclovir. LABORATORY STUDIES: White blood cells of 15.82, no significant change from yesterday. Hemoglobin is 10.4 with a platelet count of 204. Sodium 143, potassium 3.7, creatinine is 1.87, seems like at the baseline. MICROBIOLOGY: No new microbiology studies available. Urine showed Sarah albicans, more than 100,000. SEROLOGY: HSV PCR pending as of right now with Coronavirus PCR not detected on 08/24/2019 ASSESSMENT AND PLAN: 1. 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 Follow with HSV PCR, still in progress. 2. Funguria with Sarah albicans, the patient is on Diflucan. 3. Leukocytosis. Overall, no significant change status post LP with a white count of 10 with the cultures pending. 4. Bacteremia with Streptococcus agalactiae group B on admission on 08/23. 5. Chronic kidney disease. 6. Multiple wounds. 7. 3+ edema of extremities. 8. There was report from the night nurse that patient unable to move her left side. 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 She moves her left leg as well. CT of the head is ordered by attending. We continue with antibiotics as mentioned above. At this point, follow with the Serology, HSV PCR, and remaining of the labs. Her hemoglobin improved to 10.4. Continue with wound care. Further management of this patient is based on daily findings on laboratory and physical examination overall with guarded prognosis. Discussed with Dr. Barreto. Please refer to chart for more information. Dictated by Jemal Yanez PA-C (Al) Maurizio Barreto MD /MODL /[id number]
--- NOTE | 2019-09-08 11:12 | NUR ---
awake responds to questions states "I'm tired and want to go home doctor" able to follow examiner with eyes across room does follow commands 96.9 80 145/74 more awake than yesterday, responsive and verbalizes no meningismus or nuchal rigidity. erica-orbital edema pupils reactive no nuchal rigidity no bruits rrr cta abd soft no guarding moves all 4 extremities symmetrically 3/5 away from nox stim sensory grossly symmetric responds to verbal /auditory stim and consistent with following simple commands a/p- sepsis as per primary team agitated delirium- toxic + metabolic and infectious etiologies, no evidence of meningitis based on clinical exam reactive /chemical meningitis- supportive care no evidence of infectious etiology EEG encephalopathic, no seizures as per patients daughter who is in room, patient has hx of epilepsy as child, no evidence of seizure of convuslions during hospitalization CT diffuse white matter disease, non focal and no evidence of acute injury elevated myoglobin- patient may be having myositis vs reaction to continuous movement, myostic workup will be sent, outpt EMG ncv and possible muscle biospy depending on symptom recovery. concern for steroid myopathy vs critical illness myopathy ssa/ssb, nghia low suspicion for meningitis or viral encephalitis, however will defer to ID pt ot rehab placement
--- NOTE | 2019-09-08 11:58 | Progress Note ---
DATE: 09/08/2019 SUBJECTIVE: The patient is seen at bedside, still not responsive to verbal stimuli, confused. OBJECTIVE: VITAL SIGNS: Afebrile, pulse rate 87, respirations 22, blood pressure 167/68, and O2 saturation 100%. The patient in and out of ventricular tachycardia. EXTREMITIES: Ulceration to the right ankle improving, some granulation tissue, less drainage, Negative foul smell. Ulceration of dorsal aspect right foot is improving very slowly, some necrosis overlying the 1st metatarsal head dorsally, tracking all the way down to the 4th met shaft. No active bleeders on this date. Some granulation tissue noted with negative foul smell, decreased cellulitis. Pedal pulses diminished. LABORATORY DATA: Labs show white blood cell count 15.8, hemoglobin 10.4, hematocrit 31.8 with a platelet count of 204. ASSESSMENT: Peripheral arterial disease with grade 4 ulcer, osteomyelitis and cellulitis. PLAN: Continue local wound care with Santyl followed by diluted wet-to-dry Betadine. Continue antibiotics as per Dr. Barreto. Continue offloading. We will continue to follow. LANDEN Moya/ILDA /[id number]
[2019-09-08] MEDS ORDERED: ACETAMINOPHEN 325 MG TAB PO SCH (12:00)
[2019-09-08] MEDS ORDERED: ACETAMINOPHEN 1000 MG/100 ML IV SCH (12:00)
[2019-09-08] MEDS ORDERED: ACETAMINOPHEN 1000 MG/100 ML IV PRN (12:15)
--- NOTE | 2019-09-08 13:44 | Electroencephalogram ---
DATE OF STUDY: 09/07/2019 REQUESTING PHYSICIAN: STUDY: EEG, 30 minutes study. EEG is done in 10-20 international electrode placement system with video recording, performed for 30 minutes, read in the bipolar, average and referential montages. EEG DATA: Generalized diffuse slow waves, delta frequency to theta frequency throughout the entirety of the study. Anterior beta frequencies are noted and at times, sleep spindles are also noted. Overall, this EEG is abnormal level 3 for a moderate diffuse encephalopathy, however, awake and asleep were captured during this recording. No evidence of epilepsy or seizure activity, and this EEG does appear better than the previous EEG that was done. Head movement artifact is noted in the posterior head regions bilaterally, these are not epileptogenic in nature. MD AMILCAR GALLAGHER/ILDA /[id number]
[2019-09-08] MEDS: ACYCLOVIR SODIUM INJ 500 MG in SODIUM CHLORIDE 0.9% 100 ML 100 ML IV SCH (17:07)
[2019-09-08] MEDS ORDERED: FUROSEMIDE INJ 10 MG/ML 4 ML VIAL IV ONE (17:15)
--- NOTE | 2019-09-08 17:25 | Diagnostic Imaging Report ---
EXAMINATION: CHEST SINGLE (PORTABLE) INDICATION: ^SOB ^Y COMPARISON: 09/06/2019 FINDINGS: AP view TUBES and LINES: Stable right IJ central venous catheter with tip overlying the inferior right atrium. Stable triple lead ICD. LUNGS: Worsening low lung volumes with increased bilateral pulmonary edema. Bibasilar atelectasis, unchanged. PLEURA: Trace bilateral pleural effusions, decreased. HEART AND MEDIASTINUM: Stable enlargement of the cardiac silhouette. Tortuous thoracic aorta. BONES AND SOFT TISSUES: Cervical spine hardware. Soft tissues are unremarkable. UPPER ABDOMEN: No free air under the diaphragm. IMPRESSION: Worsening bilateral pulmonary edema. Signed by: Dr. Cecilia Price M.D. on 09/08/2019 5:22 PM
--- NOTE | 2019-09-08 17:45 | NUR ---
dr kramer notified of chest x ray results, orders received and entered
[2019-09-09] VITALS (9 sets, daily range): BP systolic 101–133; BP diastolic 68–111
[2019-09-09] MEDS ORDERED: FUROSEMIDE INJ 10 MG/ML 4 ML VIAL IV SCH (01:00)
[2019-09-09] MEDS: PANTOPRAZOLE 40 MG 10ML VIAL IV SCH ×3 (01:14→23:38)
[2019-09-09] MEDS: FUROSEMIDE INJ 10 MG/ML 4 ML VIAL IV SCH ×3 (01:14→19:47)
--- NOTE | 2019-09-09 01:41 | Progress Note ---
DATE: 09/08/2019 Cardiology Progress Note SUBJECTIVE: Remains altered. OBJECTIVE: VITAL SIGNS: Temperature 92.9, pulse 81, respiratory rate 23, blood pressure 116/70, saturating 100% on 2 L cannula. GENERAL: Elderly female, in no acute distress. CARDIOVASCULAR: Regular rate and rhythm. No murmurs, rubs, or gallops. LUNGS: Clear to auscultation anteriorly. Decreased breath sounds at the bases. ABDOMEN: Soft, nontender, nondistended. NEURO AND PSYCH: Disoriented. INPATIENT MEDICATIONS: Reviewed. LABORATORY DATA: Reviewed. Hemoglobin was 6.6 yesterday, improved to 10.4 today with transfusion. BNP mildly elevated at 330. Amylase is elevated at 306. Lipase is normal. Creatinine 1.8. GFR of 26. IMAGING DATA: Reviewed. Chest x-ray shows worsening bilateral pulmonary edema. ASSESSMENT AND PLAN: 1. History of coronary artery disease, status post PCI in the past. 2. Acute on chronic systolic congestive heart failure. 3. History of chronic atrial fibrillation status post AV node ablation and BiV ICD placement. 4. Right foot wound. 5. Peripheral arterial disease. 6. Altered mental status. 7. Sepsis. RECOMMENDATIONS: Worsening pulmonary edema. BNP 330. We will increase IV Lasix from 40-60. Continue to hold cardiovascular medications otherwise given risk of bleeding and borderline blood pressure. Thank you for this consult. We will continue to follow. MD ADELIA Salazar/MODL /[id number]
[2019-09-09] MEDS: SODIUM BICARBONATE 8.4% SYRING 75 ML in SODIUM CHLORIDE 0.45% 1,000 ML IV SCH ×2 (04:42→05:51)
[2019-09-09] MEDS: FLUCONAZOLE 100 MG/NS 50 ML 50 ML IV SCH (05:25)
[2019-09-09] MEDS: LEVOTHYROXINE SODIUM 100 MCG/VIAL IV SCH (05:25)
[2019-09-09 06:23] LABS: BASOPHILS % 0.2 % (0.0-1.0); HEMOGLOBIN 10.5 g/dL (12.0-16.0); LYMPHOCYTES # (AUTO) 0.6 (1.0-3.2); LYMPHOCYTES % 4.2 % (18.0-39.1); MEAN CORPUSCULAR HEMOGLOBIN 30.3 pg (28-32); MEAN CORPUSCULAR HGB CONC 32.8 g/dL (31-35); MEAN CORPUSCULAR VOLUME 92.2 fL (81-99); MONOCYTES # (AUTO) 0.5 (0.2-0.8); MONOCYTES % 3.6 % (4.4-11.3); NEUTROPHILS # (AUTO) 12.1 (2.1-6.9); NEUTROPHILS % 90.7 % (38.7-80.0); PLATELET COUNT 201 x10e3/uL (140-360); RED BLOOD COUNT 3.47 x10e6/uL (3.6-5.1); RED CELL DISTRIBUTION WIDTH 21.4 % (11.7-14.4)
[2019-09-09 06:56] LABS: ALBUMIN 1.7 g/dL (3.5-5.0); ALBUMIN/GLOBULIN RATIO 0.4 (0.8-2.0); ANION GAP 26.5 mmol/L (8-16); CALCIUM 8.3 mg/dL (8.4-10.2); CREATININE, SERUM 1.65 mg/dL (0.57-1.11); POTASSIUM 3.5 mmol/L (3.5-5.1)
[2019-09-09] MEDS: INSULIN LISPRO 100 UNIT/1 ML 3ML VIAL SQ SCH ×4 (07:30→21:00)
[2019-09-09] MEDS: AMPICILLIN SOD 2 GM/NS 100ML 100 ML IV SCH ×2 (08:25→21:25)
[2019-09-09] MEDS: INSULIN GLARGINE 100 UNITS/ML VIAL SQ SCH (09:00)
[2019-09-09] MEDS: SODIUM BICARBONATE 650 MG TAB PO SCH ×2 (09:00→17:00)
[2019-09-09] MEDS: AMIODARONE HCL 200 MG TAB PO SCH (09:00)
[2019-09-09] MEDS: COLLAGENASE OINTMENT 30 GM TUBE TOP SCH ×2 (09:08→17:00)
[2019-09-09] MEDS: BALSAM PERU/CASTOR OIL 60 GM OINT...G. TP SCH (09:08)
--- NOTE | 2019-09-09 09:56 | Progress Note ---
DATE: SUBJECTIVE: The patient is seen and evaluated. Available labs and notes reviewed. Discussed with the nurse. The patient remains to weak, lethargic. She opens eyes, response appropriately, speaks a few words. I think overall slightly improved from yesterday, but still very weak. PHYSICAL EXAMINATION: VITAL SIGNS: Temperature 97.6. The patient was hypothermic 95.1, last night at 1957 hours. Pulse 106, respiration 22, and blood pressure 119/74. GENERAL: The patient is easily awaken, no acute distress. CV: S1 and S2. CHEST: Equal expansion. Clear to auscultation. Decreased breath sounds. ABDOMEN: Soft, obese, and nontender. HEENT: Moist. No pallor. No JVD. EXTREMITIES: With 3+ edema of extremities. MEDICATIONS: Medication list reviewed and from ID point of view, the patient is on Diflucan, ampicillin, and acyclovir. LABORATORY STUDIES: White count of 13.36, improved from 15.82, hemoglobin is 10.5, stable past 2 days with platelet count of 201. Sodium 146, potassium 3.5, and creatinine 1.65, improved from yesterday of 1.87. Her total protein is 5.5. RADIOLOGY STUDIES: No new radiology studies available. She had a chest x-ray yesterday showed worsening bilateral pulmonary edema. The patient had a spinal tap HSV PCR came back negative. ASSESSMENT AND PLAN: 1. Bacteremia with Streptococcus agalactiae group B, on admission on 08/23. Continue with ampicillin. 2. Funguria-on Diflucan. 3. Leukocytosis, improved. 4. Multiple wounds. 5. Edema. 6. Pulmonary edema per chest x-ray. 7. Discussed with Dr. Barreto in details. Please refer to chart for more information. Dictated by Jemal Yanez PA-C (Al) Maurizio Barreto MD /MODL /[id number]
--- NOTE | 2019-09-09 10:43 | Progress Note ---
DATE: 09/09/2019 SUBJECTIVE: The patient is seen at bedside. Still somewhat confused, but looks a little bit better. OBJECTIVE: VITAL SIGNS: Afebrile, pulse rate 106, respirations 22, blood pressure 119/74, and O2 saturation 97% with an O2 cannula at 2 L/minute. EXTREMITIES: Ulcerations to the right lower extremity getting better. Some granulation tissue noted to the medial aspect of the right ankle. Still more than 5 to 6 cm in diameter. Ulceration to the dorsal aspect of the right foot shows some necrosis overlying the 1st metatarsophalangeal joint dorsally. Some granulation tissue noted on metatarsal shaft 2nd, 3rd, and 4th with decreased drainage. There is negative foul smell. Decreased cellulitis present. Pedal pulses are diminished. ASSESSMENT: Multiple grade 4 ulcers with cellulitis with tendon and bone exposed. PLAN: We will continue local wound care with Santyl, followed by diluted wet-to-dry Betadine. Continue offloading. Continue IV antibiotics. White blood cell count dropping to 13.3 with a hemoglobin of 10.5. We will continue to follow. LANDEN Moya/ILDA /[id number]
[2019-09-09] MEDS: ENOXAPARIN 30 MG/0.3 ML SYR SC SCH (12:19)
--- NOTE | 2019-09-09 12:29 | NUR ---
asleep but easily awoken able to follow examiner with eyes across room does follow commands falls asleep quickly 95.1 104 119/74 sleepy no meningismus or nuchal rigidity. erica-orbital edema pupils reactive no nuchal rigidity no bruits rrr cta abd soft no guarding moves all 4 extremities symmetrically 3/5 away from nox stim sensory grossly symmetric responds to verbal /auditory stim and consistent with following simple commands a/p- sepsis as per primary team infectious encephalpathy reactive /chemical meningitis- supportive care no evidence of infectious etiology. EEG encephalopathic, no seizures, repeat study slow and encephalopathic. as per patients daughter who is in room, patient has hx of epilepsy as child, no evidence of seizure of convuslions during hospitalization CT diffuse white matter disease, non focal and no evidence of acute injury elevated myoglobin- patient may be having myositis vs reaction to continuous movement, myostic workup will be sent, outpt EMG ncv and possible muscle biospy depending on symptom recovery. concern for steroid myopathy vs critical illness myopathy ssa/ssb, nghia low suspicion for meningitis or viral encephalitis, however will defer to ID
--- NOTE | 2019-09-09 14:15 | NUR ---
Dr. Schulte, rounding to see patient, made aware, I did not administered the 5 units of Lantus due to patient altered mental status, received orders to hold Lantus if Accu -check sugar of 100 and just give and follow the sliding scale.
--- NOTE | 2019-09-09 15:28 | NUR ---
Nutrition Intervention Note RD Recommendation(s) for Physician: - Recommend Glucerna 1.5 @ goal rate of 45 mL/hr - Fluid management per MD (provides 1620 kcal, 89 g protein, and 820 mL water) Plan of Care: RD following, monitoring for tolerance and adequacy Nutrition reason for involvement: Follow up RD Assessment 09/08: Follow up. Pt remains altered. Speech therapy evaluated pt yesterday and recommended pt remain NPO since pt is not alert for PO intake and shows signs of aspiration. A dobhoff feeding tube is going to be placed per RN. Will continue to monitor. 09/03: follow up. RN stated pt continues with AMS and is not eating anything. Pt has been on full liquid diet for 8 days. Recommend advancing diet as medically appropriate. Encourage PO intake and Glucerna nutrition supplement shakes. Will continue to monitor 08/31: Follow up. Pt continues with AMS, unable to obtain hx- appears well nourished. Pt with R foot wound, possible osteomyelitis. Pt with poor intake, 0-50% of meals within the past week and currently on a supplement- Glucerna Shake TID. Chart reviewed. Will continue to monitor. (08/24) 79 YOF admitted for DKA and severe sepsis found to have healing broken ribs and L2 fracture upon admit due to falls per MD notes. Pt discussed during am MDR, continues on insulin drip and CLD tolerance pending. Pt currently PUI, unable to obtain hx at time of visit. No reported poor intake per admit H&P. Pt wt stable x 1 yr per prior admit wt of 132#. Pt educated on DM diet restrictions at prior admit, will address education needs at follow up visit. Chart reviewed. Labs and meds reviewed. Primary Diagnose(s): DKA, severe sepsis PMH: DM2, Afib, HTN, CHF, hypothyroidism, diverticulosis GI: LBM 09/07 Skin: R foot - diabetic wound, cellulitis Labs: 09/08: Na 146, K 3.5, Cr 1.65, BUN 44, Ca 8.3, Glu 81 (09/03) Na 133, K 4.1, BUN 46, Cr 1.87, Ca 7.6 (08/31) Na 149, K 3.3, BUN 59, Cr 1.94, gluc 114, POC Gluc 82-107, Ca 8 Meds: lasix, lovenox, ampicillin, levothyroxine, protonix, insulin, hydralazine Ht: 62 in Wt: 174 lbs (09/08 ) 146 lbs (09/02) 131 lb (08/24) Suspect possible weight error BMI: 31.9 kg/m2 IBW: 110 lb Malnutrition Evaluation (09/04/19) The patient does not meet criteria for a specified degree of malnutrition at this time. Will re-evaluate at follow-up as appropriate. Energy intake: <75% of estimated energy requirements for >7 days Weight loss: unable to assess Fat loss: none, ample triceps fold thickness Muscle loss: none, shoulder round Supporting Evidence: Fluid accumulation: none Functional Status: unable to evaluate Nutrition Prescription (Diet Order): NPO Estimated Nutritional Needs: 1653-3746 calories/day (25-30 kcal/kg CBW) Weight used: 131 lbs 60-89 g protein/day (1-1.5 g pro/kg CBW) Weight used: 131 lbs Diet Adequacy: Not meeting calorie needs, Not meeting protein needs Diet Tolerance: pt is NPO Diet education: Diet education is not indicated - pt is NPO Nutrition Care Level: moderate Nutrition Diagnosis: Inadequate energy and protein intake related to AMS as evidenced by not meeting needs. Goal: Patient will meet 75-100% of estimated needs by follow up Progress: not progressing Interventions: - Composition, Rate, Route, Collaboration with other providers Monitoring/Evaluation: -Total energy intake, Total protein intake, Formula/Solution, Weight change Signed: Mary Grace Rosales RD, [place] Addendum: 09/09/19 at 1533 by Mary Grace Rosales DIET Correction: pt is high nutrition care level
--- NOTE | 2019-09-09 16:37 | Diagnostic Imaging Report ---
Exam: KUB - 1 views Indication: Feeding tube placement Comparison: None Findings: Weighted tip feeding tube terminates in the right abdomen, likely in the distal stomach. Nonobstructive bowel gas pattern. Severe degenerative changes of the visualized spine. Old left inferior pubic ramus fracture deformity. No acute osseous injury. Impression: Weighted tip feeding tube terminates in the right abdomen, likely in the distal stomach. Signed by: Ilir Krueger MD on 09/09/2019 4:34 PM
[2019-09-09] MEDS ORDERED: POTASSIUM CHLORIDE 20MEQ/15ML UDC NG ONE (16:45)
--- NOTE | 2019-09-09 17:05 | NUR ---
Called Dr. Knapp made aware of Dobbhoff KUB results, received orders to initiate tube feed, and give ice chips until tube feed is initiated. Also to change code status to DNR.
[2019-09-09] MEDS: BACITRACIN ZINC 15 GM OINT TOP SCH (19:10)
[2019-09-09] MEDS: IPRATROPIUM BROMIDE 0.02% 2.5 ML NEB NEB PRN (21:35)
--- NOTE | 2019-09-09 23:11 | Diagnostic Imaging Report ---
EXAMINATION: CHEST SINGLE (PORTABLE) INDICATION: ^SOB ^[id number] ^[id number] COMPARISON: 09/08/2019 FINDINGS: AP view TUBES and LINES: Stable triple lead left chest wall cardiac device and right IJ central line. Subdiaphragmatic Dobbhoff tube with tip projecting over gastric antrum or proximal duodenum. LUNGS: Limited by low lung volumes and rotation. Central vascular congestion and mild additional edema. PLEURA: No significant pleural effusion or pneumothorax. HEART AND MEDIASTINUM: The cardiomediastinal silhouette is enlarged. BONES AND SOFT TISSUES: No acute osseous lesion. Soft tissues are unremarkable. UPPER ABDOMEN: No free air under the diaphragm. IMPRESSION: Limited study as above. Enlarged cardiomediastinal silhouette and central vascular congestion, accentuated by low lung volumes. There is also mild interstitial edema. Underlying pneumonia cannot be excluded in the appropriate clinical context. Signed by: Dr. Levi Arredondo MD on 09/09/2019 11:08 PM
[2019-09-10] VITALS (10 sets, daily range): BP systolic 109–129; BP diastolic 67–81
[2019-09-10] MEDS: FUROSEMIDE INJ 10 MG/ML 4 ML VIAL IV SCH ×3 (01:44→18:25)
[2019-09-10] MEDS: IPRATROPIUM BROMIDE 0.02% 2.5 ML NEB NEB PRN ×2 (02:05→20:40)
[2019-09-10 05:31] LABS: HEMATOCRIT 31.9 % (34.2-44.1); MEAN CORPUSCULAR HEMOGLOBIN 30.3 pg (28-32); MEAN CORPUSCULAR HGB CONC 31.3 g/dL (31-35); MEAN CORPUSCULAR VOLUME 96.7 fL (81-99); PLATELET COUNT 188 x10e3/uL (140-360); RED CELL DISTRIBUTION WIDTH 21.3 % (11.7-14.4)
[2019-09-10 05:53] LABS: ALBUMIN 1.8 g/dL (3.5-5.0); ALBUMIN/GLOBULIN RATIO 0.5 (0.8-2.0); CALCIUM 8.1 mg/dL (8.4-10.2); CREATININE, SERUM 1.82 mg/dL (0.57-1.11)
[2019-09-10] MEDS: LEVOTHYROXINE SODIUM 100 MCG/VIAL IV SCH (06:28)
[2019-09-10] MEDS: FLUCONAZOLE 100 MG/NS 50 ML 50 ML IV SCH (06:32)
[2019-09-10] MEDS: SODIUM BICARBONATE 8.4% SYRING 75 ML in SODIUM CHLORIDE 0.45% 1,000 ML IV SCH (07:10)
--- NOTE | 2019-09-10 07:32 | Consultation ---
DATE OF CONSULTATION: HISTORY OF PRESENT ILLNESS: I had a long talk with the daughter twice yesterday regarding multiple questions, #1 is for overall illness, where I did state to the patient that the patient is improving, but still critically ill and obviously anything can happen where she can continue to improve versus continue to worsen and . So, the daughter did agree to make the patient DNR for the time being and while she discuss this with the family. We also talked about her nutritional supplementation that the daughter originally was stating that it took a couple days to get the nutrition started, but we discussed the pros and cons of why, but the Dobbhoff tube was placed. X-ray shows good placement, so she is now started on tube feeds and I did state to her that we know she is sick and that her albumin levels have actually increased over these last few days, that she had been getting hydration whole time. Family also discussed the patient stating that she was short of breath and that she was having some third spacing and pulmonary edema, which is completely expected with her overall condition, but we do have her on diuretics to try to get her to pee it out. So, the patient's daughter's all questions were answered and the patient's daughter has better understanding of her overall condition and the reasoning behind our decisions, but she also understands that she is still very critically ill and that we will continue our best to improve her. Overnight, she seems to have had less shortness of breath, especially with some breathing treatments. Chest x-ray that shows some pulmonary edema. She is a little bit more alert this morning. She states she is not having any pain and she feels like her breathing is better. PHYSICAL EXAMINATION: VITAL SIGNS: Temperature 97.3, pulse 80, blood pressure 124/81, and saturations are 100% on nasal cannula. GENERAL: No apparent distress, lying in bed. NECK: Supple. No lymphadenopathy. CARDIOVASCULAR: Regular rate and rhythm. LUNGS: Decreased breath sounds bilaterally. ABDOMEN: Good bowel sounds. Soft, nontender. EXTREMITIES: No clubbing or cyanosis. She does have 2+ edema in the upper extremities and 3 to 4+ edema in the lower extremities. Right foot is wrapped. NEUROLOGIC: She moves all extremities x4. ASSESSMENT/PLAN: 1. Pulmonary edema. We will continue with diuretics and O2. 2. Diabetes. Continue current care and monitoring. 3. Anemia. Continue to monitor. 4. Gastrointestinal bleed. Continue current care per GI. We went ahead and discontinued her Lovenox due to GI bleed. 5. Leukocytosis. Continues to improve, so continue to monitor. 6. Chronic kidney disease, stage 3. Continue to monitor and check daily labs. 7. Hypothyroidism. Continue with her medication. 8. Nutritional support. We will continue with her Nepro, increase that if she is tolerating. Please see hospital chart for full details. MD PATSY Art/ILDA /[id number]
[2019-09-10 08:16] LABS: LYMPHOCYTES % (MANUAL) 2 % (19-48); MONOCYTES % (MANUAL) 1 % (3.4-9.0); NEUTROPHILS % (MANUAL) 97 % (40-74); NUCLEATED RED BLOOD CELLS 1
[2019-09-10 08:17] LABS: ANISOCYTOSIS MODERATE; PLATELET ESTIMATE ADEQUATE; PLATELET MORPHOLOGY COMMENT NORMAL; RBC MORPHOLOGY COMMENT NORMAL
[2019-09-10] MEDS: AMIODARONE HCL 200 MG TAB PO SCH (08:45)
[2019-09-10] MEDS: SODIUM BICARBONATE 650 MG TAB PO SCH ×3 (08:45→21:16)
[2019-09-10] MEDS: INSULIN GLARGINE 100 UNITS/ML VIAL SQ SCH (08:46)
[2019-09-10] MEDS: BALSAM PERU/CASTOR OIL 60 GM OINT...G. TP SCH (08:47)
[2019-09-10] MEDS: BACITRACIN ZINC 15 GM OINT TOP SCH (08:47)
[2019-09-10] MEDS: COLLAGENASE OINTMENT 30 GM TUBE TOP SCH ×2 (08:47→18:11)
[2019-09-10] MEDS: INSULIN LISPRO 100 UNIT/1 ML 3ML VIAL SQ SCH ×4 (08:47→21:23)
[2019-09-10] MEDS: AMPICILLIN SOD 2 GM/NS 100ML 100 ML IV SCH ×2 (08:47→19:54)
--- NOTE | 2019-09-10 09:01 | Progress Note ---
DATE: 09/10/2019 SUBJECTIVE: The patient is seen at bedside, accompanied by Dr. Nevarez and not responsive to verbal stimuli, getting very swollen on both the extremities and also bilateral arms. OBJECTIVE: VITAL SIGNS: Afebrile, pulse rate 80, respirations 23, blood pressure 124/81, and O2 saturation 100%. EXTREMITIES: Ulcerations to the right lower extremity, specifically the right ankle getting better. Some granulation tissue noted with minimal drainage. Negative foul smell. Ulcer to the dorsal aspect right foot improving slowly secondary to very poor circulation. Skin temperature warm and cool to touch. There is some coolness felt to all toes of the right lower extremity. LABORATORY DATA: Noted. White blood cell count dropping to 10.5, hemoglobin 10.0 with a platelet count of 188. ASSESSMENT: Peripheral arterial disease with multiple grade 4 ulcer with osteomyelitis and cellulitis. PLAN: Continue local wound care with Santyl followed by diluted wet-to-dry Betadine. Continue IV antibiotics. Continue offloading. We will continue to follow. Prognosis is guarded. LANDEN Moya/ILDA /[id number]
--- NOTE | 2019-09-10 10:02 | Consultation ---
DATE OF CONSULTATION: Wound Consultation HISTORY OF PRESENT ILLNESS: A 79-year-old female patient has multiple skin tears, bruises, hematoma, ulcers. Wound consult was called. The patient also has diabetic foot ulcer, right foot. Dr. Means is following. She has an ulcer covered with hemorrhagic blisters and skin tears involving both upper extremities and both legs. The patient's creatinine 1.82 with a BUN of 46. She is lethargic and unable to communicate. PAST MEDICAL HISTORY: Diabetes, obesity, hypothyroidism, chronic kidney disease. PERSONAL HISTORY: No history of smoking or alcohol. MEDICATIONS: Risperdal, hydralazine, pantoprazole, acyclovir, and acetaminophen discontinued. ALLERGIES: TO PLASTIC TAPE, PENICILLIN, TAPE, ALPRAZOLAM, CETIRIZINE, AND CODEINE. PHYSICAL EXAMINATION: VITAL SIGNS: Height is 62 inches, weight 174 pounds, blood pressure 109/59, pulse 83, temperature 97.5. HEENT: Normal. NECK: No JVD. LUNGS: Bilaterally normal. ABDOMEN: Bilateral air entry diminished with bilateral basal crackles present. ABDOMEN: Protuberant. EXTREMITIES: Upper extremities, edematous. Multiple skin tears and hemorrhagic blisters present. Bilateral lower legs, 3+ edema present with hematoma on the left lateral leg and to the right anterior leg. Right foot, the patient has diabetic foot ulcer. ASSESSMENT: Anasarca with hemorrhagic blisters and skin tears. PLAN: The patient needs aggressive diuresis or hemofiltration. Difficult to compress all four extremities. We will discuss with Dr. Hernandez. The patient's prognosis is poor. Currently, we will apply ABD Kerlix and Salvador wrap to the skin. MD CLARISSA Almonte/MODL /[id number]
--- NOTE | 2019-09-10 11:17 | Progress Note ---
DATE: SUBJECTIVE: The patient is seen and evaluated. Available labs and notes reviewed. Discussed with the nurse. REVIEW OF SYSTEMS: Unable to obtain review of systems. Also, discussed with the nurse. No new events overnight. PHYSICAL EXAMINATION: VITAL SIGNS: Temperature 96.8, pulse is 75, respiration 20, and blood pressure 112/74. GENERAL: Opens eyes, few words, in no acute distress. Looks very ill and lethargic in general, but no acute finding. CV: S1 and S2. CHEST: Equal expansion. Decreased breath sounds. No acute distress. ABDOMEN: Soft, obese, and nontender. Positive bowel sounds. HEENT: Moist. No pallor. No JVD with Dobhoff tube. EXTREMITIES: 3+ edema, multiple ecchymosis and multiple wounds. Lower extremity concern venous ulcers, on local care. MEDICATIONS: Medication list reviewed and from Infectious Disease point of view, the patient is on ampicillin and Diflucan. Acyclovir was stopped yesterday after HSV PCR came back negative. LABORATORY STUDIES: White count of 10.52, improved from 13.36, hemoglobin 10, and platelet 188. Sodium 145, potassium 4, and creatinine 1.82. Serology; coronavirus PCR on 08/23 and HSV 1 and 2 DNA PCR on 09/04/2019, negative. TASNEEM screen 09/02/2019, negative. MICROBIOLOGY: No new microbiology studies available. RADIOLOGY STUDIES: No new radiology studies available. ASSESSMENT AND PLAN: 1. Strep agalactiae group B bacteremia, on admission on 08/23. 2. Funguria. 3. Altered mental status post LP with white counts of 10, however, HSV PCR negative. Stopped acyclovir yesterday. 4. Multiple wounds. 5. Edema of extremities. 6. Pulmonary edema. 7. Leukocytosis, resolved. 8. Renal insufficiency seems to be stable. Creatinine level between 1.94 and 1.65 for the past almost 8 days. Protein-calorie malnutrition, status post Dobhoff tube placement. The patient remains on ampicillin and Diflucan. Continue to monitor the patient clinically and follow up with the labs. Continue with wound care. Concern osteomyelitis and cellulitis of feet. 9. Peripheral arterial disease. 10. Overall guarded prognosis. Discussed with Dr. Barreto in details. Please refer to chart for more information. Dictated by Jemal Yanez PA-C (Al) MD LISA Leo/ILDA /[id number]
[2019-09-10] MEDS: PANTOPRAZOLE 40 MG 10ML VIAL IV SCH (12:30)
--- NOTE | 2019-09-10 17:44 | NUR ---
asleep but easily awoken able to follow examiner with eyes across room does follow commands falls asleep quickly 75 96.8 129/67 sleepy no meningismus or nuchal rigidity. erica-orbital edema pupils reactive no nuchal rigidity no bruits rrr cta abd soft no guarding moves all 4 extremities symmetrically 3/5 away from nox stim sensory grossly symmetric responds to verbal /auditory stim and consistent with following simple commands a/p- sepsis as per primary team infectious encephalpathy reactive /chemical meningitis- supportive care no evidence of infectious etiology. EEG encephalopathic, no seizures, repeat study slow and encephalopathic. as per patients daughter who is in room, patient has hx of epilepsy as child, no evidence of seizure of convuslions during hospitalization CT diffuse white matter disease, non focal and no evidence of acute injury elevated myoglobin- patient may be having myositis vs reaction to continuous movement, myostic workup will be sent, outpt EMG ncv and possible muscle biospy depending on symptom recovery. concern for steroid myopathy vs critical illness myopathy ssa/ssb, nghia low suspicion for meningitis or viral encephalitis, however will defer to ID
[2019-09-11] VITALS (8 sets, daily range): BP systolic 105–133; BP diastolic 68–90
[2019-09-11] MEDS: PANTOPRAZOLE 40 MG 10ML VIAL IV SCH ×2 (00:37→13:22)
[2019-09-11] MEDS: FUROSEMIDE INJ 10 MG/ML 4 ML VIAL IV SCH ×2 (01:38→08:16)
[2019-09-11] MEDS: IPRATROPIUM BROMIDE 0.02% 2.5 ML NEB NEB PRN ×2 (02:05→07:25)
[2019-09-11 06:03] LABS: BASOPHILS % 0.1 % (0.0-1.0); HEMATOCRIT 29.7 % (34.2-44.1); HEMOGLOBIN 9.6 g/dL (12.0-16.0); LYMPHOCYTES # (AUTO) 0.3 (1.0-3.2); LYMPHOCYTES % 3.1 % (18.0-39.1); MEAN CORPUSCULAR HEMOGLOBIN 30.5 pg (28-32); MEAN CORPUSCULAR HGB CONC 32.3 g/dL (31-35); MEAN CORPUSCULAR VOLUME 94.3 fL (81-99); MONOCYTES # (AUTO) 0.3 (0.2-0.8); MONOCYTES % 3.2 % (4.4-11.3); NEUTROPHILS % 92.7 % (38.7-80.0); PLATELET COUNT 174 x10e3/uL (140-360); RED BLOOD COUNT 3.15 x10e6/uL (3.6-5.1); RED CELL DISTRIBUTION WIDTH 20.3 % (11.7-14.4)
[2019-09-11] MEDS: LEVOTHYROXINE SODIUM 100 MCG/VIAL IV SCH (06:09)
[2019-09-11] MEDS: FLUCONAZOLE 100 MG/NS 50 ML 50 ML IV SCH (06:09)
[2019-09-11 06:40] LABS: ALBUMIN 1.7 g/dL (3.5-5.0); ALBUMIN/GLOBULIN RATIO 0.5 (0.8-2.0); CALCIUM 8.2 mg/dL (8.4-10.2); CREATININE, SERUM 1.76 mg/dL (0.57-1.11); MAGNESIUM 1.6 MG/DL (1.3-2.1)
--- NOTE | 2019-09-11 07:22 | NUR ---
awake responds to questions acutely responsive. aware she is in hospital does not know day is not sure why she is still here 97.41 109 133/69 awake and responsive no meningismus or nuchal rigidity. erica-orbital edema pupils reactive no nuchal rigidity no bruits irrreg irreg cta abd soft no guarding moves all 4 extremities symmetrically 3/5 away from nox stim sensory grossly symmetric responds to verbal /auditory stim and consistent with following simple commands bruising on chest and arms a/p- sepsis as per primary team infectious encephalpathy - resolving reactive /chemical meningitis- supportive care no evidence of infectious etiology. EEG encephalopathic, no seizures, repeat study slow and encephalopathic. CT diffuse white matter disease, non focal and no evidence of acute injury elevated myoglobin- patient may be having myositis vs reaction to continuous movement, myostic workup will be sent, outpt EMG ncv and possible muscle biospy depending on symptom recovery. concern for steroid myopathy vs critical illness myopathy ssa/ssb, nghia - negative and re-assuring outpt therapy for critical care myopathy /emg low suspicion for meningitis or viral encephalitis, however will defer to ID
[2019-09-11] MEDS: AMPICILLIN SOD 2 GM/NS 100ML 100 ML IV SCH ×2 (08:15→21:38)
[2019-09-11] MEDS: IRON SUCROSE 100 MG in SODIUM CHLORIDE 0.9% 100 ML 100 ML IV SCH (08:15)
[2019-09-11] MEDS: SODIUM BICARBONATE 8.4% SYRING 75 ML in SODIUM CHLORIDE 0.45% 1,000 ML IV SCH (08:15)
[2019-09-11] MEDS: BACITRACIN ZINC 15 GM OINT TOP SCH (08:16)
[2019-09-11] MEDS: BALSAM PERU/CASTOR OIL 60 GM OINT...G. TP SCH (08:16)
[2019-09-11] MEDS: COLLAGENASE OINTMENT 30 GM TUBE TOP SCH ×2 (08:16→16:13)
[2019-09-11] MEDS: SODIUM BICARBONATE 650 MG TAB PO SCH ×3 (08:16→21:38)
[2019-09-11] MEDS: AMIODARONE HCL 200 MG TAB PO SCH (08:16)
[2019-09-11] MEDS: INSULIN LISPRO 100 UNIT/1 ML 3ML VIAL SQ SCH ×4 (08:33→17:33)
[2019-09-11] MEDS ORDERED: INSULIN GLARGINE 100 UNITS/ML VIAL SQ SCH (09:00)
[2019-09-11 11:10] LABS: LYMPHOCYTES % (MANUAL) 4 % (19-48); MONOCYTES % (MANUAL) 5 % (3.4-9.0); NEUTROPHILS % (MANUAL) 91 % (40-74)
[2019-09-11 11:11] LABS: PLATELET ESTIMATE ADEQUATE; PLATELET MORPHOLOGY COMMENT NORMAL; RBC MORPHOLOGY COMMENT NORMAL
--- NOTE | 2019-09-11 11:38 | Progress Note ---
DATE: SUBJECTIVE: The patient is seen and evaluated. Available labs and notes reviewed. Discussed with Dr. Barreto. Discussed with the nurse. Uneventful night. The patient is more alert and oriented per my discussion with the nurse. REVIEW OF SYSTEMS: The patient responds more verbally today, responds that she is doing okay, but I cannot get a detailed review of systems. PHYSICAL EXAMINATION: VITAL SIGNS: Temperature is 97.1, pulse 107, respiration 29, blood pressure 130/90. GENERAL: Seems to be more alert and oriented, speaks a few words. No acute distress. CV: S1, S2. CHEST: Equal expansion. Decreased breath sounds. No acute distress. ABDOMEN: Soft and nontender. Positive bowel sounds. HEENT: Moist. No pallor. No JVD with Dobhoff tube. EXTREMITIES: Multiple wounds and multiple ulcerations and ecchymosis in addition to edema of all extremities. Wounds are mostly superficial and they are all on local care. MEDICATIONS: Medication list reviewed. From Infectious Disease point of view, the patient is on ampicillin and Diflucan. LABORATORY STUDIES: White count 10.76, hemoglobin 9.6, platelets 174. Sodium 144, potassium 3, creatinine 1.76, which has improved from 1.82 yesterday. MICROBIOLOGY: No new microbiology studies available. IMAGING: No new radiology studies available. Chest x-ray from yesterday showed central vascular congestion and low lung volumes, also mild interstitial edema. Underlying pneumonia could not be excluded. However, the patient is afebrile with white counts within normal limits. ASSESSMENT AND PLAN: 1. Bacteremia with strep agalactiae group B on admission on 08/23. 2. Altered mental status, which has improved. The patient is status post lumbar puncture with white counts of 10 and HSV PCR was negative. Acyclovir was stopped. 3. Multiple wounds. 4. Edema of extremities. 5. Pulmonary edema. 6. Funguria. 7. Leukocytosis, resolved. 8. Severe debility. 9. Dysphagia-with Dobhoff tube. 10. At risk for aspiration. Continue with the antifungal, Diflucan and ampicillin. Monitor the patient clinically. Follow with the labs. Further management of this patient is based on daily findings on laboratory and physical examination. Overall guarded prognosis. Discussed with Dr. Barreto in detail. Please refer to chart for more information. Dictated by Jemal Yanez PA-C (Al) MD LISA Leo/ILDA /[id number]
--- NOTE | 2019-09-11 11:53 | NUR ---
Received order for LTAC eval. CM called pt's daughter Jeny [phone] and left message. Awaiting callback.
--- NOTE | 2019-09-11 12:30 | NUR ---
patients temperature 94.7 axillary, skin cool to the touch, provided warm blankets, will continue to monitor.
--- NOTE | 2019-09-11 12:46 | NUR ---
ST NOTE: Pt in/out of alertness. Pt not able to stay alert for PO trials, less responsive than session on 09/10/19, Will continue to follow and re-attempt PO at next session if pt able to participate. Handoff to RUBINA Kearney
--- NOTE | 2019-09-11 14:06 | NUR ---
Placed another call to pt's daughter Jeny at [phone]. Left message for callback.
--- NOTE | 2019-09-11 15:35 | NUR ---
clarified with Dr. Hernandez on tube feeding order and informed dr romero wants patient switched to Glucerna, at this time Dr. Hernandez states to keep patient on Nepro due to sodium levels and kidney function, will notify dr romero.
[2019-09-11] MEDS: BUMETANIDE 10 MG in SODIUM CHLORIDE 0.9% 100 ML 60 ML IV SCH (16:13)
[2019-09-11] MEDS ORDERED: POTASSIUM CHLORIDE 20MEQ/100ML 200 ML IV ONE (16:30)
--- NOTE | 2019-09-11 16:35 | NUR ---
Received callback from pt's daughter Jeny. Discussed dc plan for LTAC. She gave choice for [facility]. Signed choice letter placed in front of chart. Referral was faxed to [place] at [phone] / Kelle Glez was notified of referral. MOT initiated.
--- NOTE | 2019-09-11 16:45 | NUR ---
unable to obtain temperature axillary, multiple attempts made and tympanic temp low, rectal temperature obtained, 97.6.
--- NOTE | 2019-09-11 20:19 | Progress Note ---
DATE: SUBJECTIVE: The patient is less responsive today. She was started on Bumex drip by Nephrology. She has slight increased tachypneic. After discussion with Dr. Knapp, the family has opted for DNR status. PHYSICAL EXAMINATION: VITAL SIGNS: The blood pressure is 125/68, saturation is 93% on 2 L. HEENT: Shows no facial swelling or erythema. CARDIAC: Reveals regular rate and rhythm with normal S1 and S2. LUNGS: Auscultation of lungs reveals rhonchorous breath sounds bilaterally. There is no wheezing. ABDOMEN: Soft, nontender. There is no rebound or guarding. EXTREMITIES: Shows no leg edema or calf tenderness. There is no cyanosis or clubbing. SKIN: Shows no rashes. NEUROLOGICAL: Shows the patient to be obtunded. LABORATORY DATA: The potassium is 3. BUN to creatinine ratio is 51 to 1.76 and the blood sugar is 301,000. Anion gap is increased to 18. White blood cell count is 10.7 and hemoglobin is 9.6. The platelet count is 174. IMPRESSION: 1. Metabolic encephalopathy. 2. Acute on chronic renal failure. 3. Diabetic ketoacidosis. 4. Group B Strep bacteremia and wound infection. 5. Anemia. 6. Pulmonary edema. PLAN: 1. Continue Bumex. 2. Continue oxygen. 3. Continue current antibiotics. 4. Continue insulin. 5. Continue to monitor electrolytes, BUN and creatinine. 6. Long-term prognosis remains very poor. Augusto Roberts MD LM/MODL /[id number]
--- NOTE | 2019-09-11 23:56 | Progress Note ---
DATE: 09/09/2019 Cardiology Progress Note SUBJECTIVE: No major events. Remains confused. OBJECTIVE: VITAL SIGNS: Temperature afebrile, pulse 80, respiratory rate 18, blood pressure 109/69, saturating 99% on 2 L nasal cannula. GENERAL: An elderly female, in no acute distress. CARDIOVASCULAR: Regular rate and rhythm. No murmurs, rubs, or gallops. LUNGS: Decreased breath sounds at the bases. ABDOMEN: Soft, nontender, and nondistended. NEURO AND PSYCH: Disoriented. INPATIENT MEDICATIONS: Reviewed. LABORATORY DATA: Reviewed. White count is coming down a little bit today. GFR remains low at 30. TELEMETRY DATA: Reviewed, shows paced rhythm. ASSESSMENT/PLAN: 1. Chronic atrial fibrillation, status post AV node ablation and IV placement. 2. Chronic systolic congestive heart failure. 3. Coronary artery disease, status post percutaneous coronary intervention. 4. Peripheral arterial disease. 5. Diabetic foot infection. 6. Diabetic ketoacidosis. 7. Group B strep bacteremia. 8. Escherichia coli urinary tract infection. 9. Altered mental status. 10. Acute kidney injury on chronic kidney disease. RECOMMENDATIONS: We will continue to diurese with IV furosemide as renal function tolerates. Continue supportive care otherwise, we will slowly restart her cardiac medications once sepsis improves. Peripheral angiography as an outpatient once acute issues resolve. Thank you for this consult. We will continue. MD ADELIA Salazar/FARSHADL /[id number]
[2019-09-12] VITALS (11 sets, daily range): BP systolic 89–119; BP diastolic 49–78
--- NOTE | 2019-09-12 00:21 | Progress Note ---
DATE: 09/11/2019 Cardiology Progress Note SUBJECTIVE: No major events. More awake and alert today. OBJECTIVE: VITAL SIGNS: Temperature afebrile, pulse 97, respirations 19, blood pressure 108/75, saturating 97% on room air. GENERAL: Elderly female, in no acute distress. CARDIOVASCULAR: Regular rate and rhythm. No murmurs, rubs, or gallops. LUNGS: Clear to auscultation anteriorly. Decreased breath sounds at the bases. ABDOMEN: Soft, nontender, nondistended. NEURO AND PSYCH: Alert and oriented to person, place, and time. Normal affect. INPATIENT MEDICATIONS: Reviewed. LABORATORY DATA: Reviewed. TELEMETRY DATA: Reviewed, shows paced rhythm. ASSESSMENT: 1. Chronic atrial fibrillation, status post AV jose ablation. 2. Coronary artery disease, status post right coronary artery percutaneous coronary intervention. 3. Chronic systolic congestive heart failure. 4. Hypertension. 5. Peripheral artery disease with diabetic foot wound. 6. Diabetic ketoacidosis. 7. Right lower extremity foot ulcer. 8. Acute kidney injury on chronic kidney disease. 9. Sepsis. 10. Altered mental status. PLAN: Continue IV diuretics as renal function tolerates. Still has significant edema. Hold metoprolol for now given intermittently low blood pressures, seems to be improving. White count seems to have normalized. Also, mental status is improved over the last couple of days. We will continue to follow closely. Peripheral angiography as an outpatient given current infection issues and SOPHIA. Thank you for this consult. We will continue to follow. MD ADELIA Salazar/FARSHADL /[id number]
[2019-09-12] MEDS: PANTOPRAZOLE 40 MG 10ML VIAL IV SCH ×2 (00:28→12:35)
[2019-09-12] MEDS: INSULIN LISPRO 100 UNIT/1 ML 3ML VIAL SQ SCH ×8 (01:09→18:00)
[2019-09-12] MEDS: BUMETANIDE 10 MG in SODIUM CHLORIDE 0.9% 100 ML 60 ML IV SCH ×3 (05:25→22:04)
[2019-09-12] MEDS: SODIUM BICARBONATE 8.4% SYRING 75 ML in SODIUM CHLORIDE 0.45% 1,000 ML IV SCH (05:25)
[2019-09-12 06:24] LABS: BASOPHILS % 0.3 % (0.0-1.0); EOSINOPHILS % 0.1 % (0.0-6.0); HEMATOCRIT 29.8 % (34.2-44.1); HEMOGLOBIN 9.7 g/dL (12.0-16.0); LYMPHOCYTES # (AUTO) 0.2 (1.0-3.2); LYMPHOCYTES % 2.1 % (18.0-39.1); MEAN CORPUSCULAR HEMOGLOBIN 31.1 pg (28-32); MEAN CORPUSCULAR HGB CONC 32.6 g/dL (31-35); MEAN CORPUSCULAR VOLUME 95.5 fL (81-99); MONOCYTES # (AUTO) 0.4 (0.2-0.8); NEUTROPHILS % 92.2 % (38.7-80.0); PLATELET COUNT 158 x10e3/uL (140-360); RED BLOOD COUNT 3.12 x10e6/uL (3.6-5.1); RED CELL DISTRIBUTION WIDTH 20.3 % (11.7-14.4)
[2019-09-12 07:01] LABS: ALBUMIN 1.6 g/dL (3.5-5.0); ALBUMIN/GLOBULIN RATIO 0.4 (0.8-2.0); ANION GAP 12.3 mmol/L (8-16); CREATININE, SERUM 1.49 mg/dL (0.57-1.11); MAGNESIUM 1.3 MG/DL (1.3-2.1); POTASSIUM 3.3 mmol/L (3.5-5.1)
[2019-09-12] MEDS: LEVOTHYROXINE SODIUM 100 MCG/VIAL IV SCH (07:23)
[2019-09-12] MEDS: IRON SUCROSE 100 MG in SODIUM CHLORIDE 0.9% 100 ML 100 ML IV SCH (08:30)
[2019-09-12] MEDS: AMPICILLIN SOD 2 GM/NS 100ML 100 ML IV SCH ×2 (08:30→22:04)
[2019-09-12] MEDS ORDERED: CHLORTHALIDONE 25 MG TAB NG SCH (09:00)
--- NOTE | 2019-09-12 09:11 | NUR ---
Spoke with warehouse sorterMabel. Have been notified that a warmer blanket is not available to use on this patient, management of the facility is aware and will address.
--- NOTE | 2019-09-12 09:54 | NUR ---
Shawn Esipnosa [phone] called stating he is POA for patient, and that his sister mentioned transfer of his mother. He requested names of other LTAC's, and CM provided him with them. He stated he wanted to discuss with his family, and he would call CM back. No agreement at this time by POA to transfer to any certain LTAC.
[2019-09-12] MEDS: FLUCONAZOLE 100 MG/NS 50 ML 50 ML IV SCH (10:04)
[2019-09-12] MEDS: SODIUM BICARBONATE 650 MG TAB PO SCH (10:04)
[2019-09-12] MEDS: AMIODARONE HCL 200 MG TAB PO SCH (10:04)
--- NOTE | 2019-09-12 10:08 | NUR ---
Kasey Mir, liaison with [facility] cell [phone] called for update. Notified her CM just spoke with son, and am awaiting his decision. Notified Kasey he was wanting information about [facility], and asking if Dr. Knapp goes there. She stated she would find out and call him to answer his questions.
[2019-09-12] MEDS: INSULIN GLARGINE 100 UNITS/ML VIAL SQ SCH (10:17)
--- NOTE | 2019-09-12 10:38 | NUR ---
awake and more alert and responsvie today responds to questions acutely responsive. is not sure why she is still here 97.6 102 118/78 awake and responsive no meningismus or nuchal rigidity. erica-orbital edema pupils reactive no nuchal rigidity no bruits irrreg irreg cta abd soft no guarding moves all 4 extremities symmetrically 3/5 away from nox stim sensory grossly symmetric responds to verbal /auditory stim and consistent with following simple commands bruising on chest and arms a/p- sepsis as per primary team infectious encephalpathy - resolving reactive /chemical meningitis- supportive care no evidence of infectious etiology. EEG encephalopathic, no seizures, repeat study slow and encephalopathic. CT diffuse white matter disease, non focal and no evidence of acute injury elevated myoglobin- patient may be having myositis vs reaction to continuous movement, myostic workup will be sent, outpt EMG ncv and possible muscle biospy depending on symptom recovery. concern for steroid myopathy vs critical illness myopathy ssa/ssb, nghia - negative and re-assuring outpt therapy for critical care myopathy /emg
[2019-09-12] MEDS: BALSAM PERU/CASTOR OIL 60 GM OINT...G. TP SCH (11:13)
[2019-09-12] MEDS: BACITRACIN ZINC 15 GM OINT TOP SCH (11:13)
[2019-09-12] MEDS: COLLAGENASE OINTMENT 30 GM TUBE TOP SCH ×2 (11:13→17:07)
--- NOTE | 2019-09-12 11:52 | Progress Note ---
DATE: 09/11/2019 SUBJECTIVE: The patient is seen at bedside, somewhat coherent , answering questions, she knows where she is at and relates she is having minimal discomfort to the right lower extremity. OBJECTIVE: VITAL SIGNS: Afebrile, pulse rate 107, respirations 29, blood pressure 130/90, and O2 saturation 94%. LABORATORY DATA: Labs show white blood cell count of 10.7, hemoglobin 9.6. Ulcerations to the right lower extremity somewhat improved. Some granulation tissue noted in fibrosis with some necrosis noted down to bone. Negative foul smell, decreased cellulitis, decreased drainage. Multiple grade 4 ulcers overlying the 1st metatarsophalangeal joint, more than 2.5 to 3 cm in diameter, medial aspect of the right talotibial joint of the medial malleolus partially exposed, measuring more than 4-5 cm in diameter. ASSESSMENT: Peripheral arterial disease, diabetic neuropathy with multiple grade 4 ulcer with osteomyelitis. PLAN: We will continue IV antibiotics. Continue local wound care. Continue offloading. We will continue to follow. Prognosis guarded. LANDEN Moya/ILDA /[id number]
--- NOTE | 2019-09-12 13:27 | Progress Note ---
DATE: SUBJECTIVE: The patient is seen and evaluated. Available labs and notes reviewed. Discussed with Dr. Barreto. Please refer to chart for more information. REVIEW OF SYSTEMS: The patient speaks a few words, responds that she is doing fine and has no complaints and states that she is comfortable, however, cannot get review of systems secondary to the patient's medical condition. PHYSICAL EXAMINATION: VITAL SIGNS: Temperature is 96.2, pulse 96, respirations 19, and blood pressure 119/70. GENERAL: Weak and ill-looking, awake and seems to be alert, responds appropriately. CV: S1 and S2. CHEST: Equal expansion. Decreased breath sounds. No acute distress. ABDOMEN: Soft and nontender. No distention. HEENT: Moist. No pallor. No JVD with Dobhoff tube. EXTREMITIES: Multiple wounds. 3+ edema. Multiple ecchymoses. Overall very weak. MEDICATIONS: Medication list reviewed and as far as Infectious Disease point of view, the patient is on Diflucan and ampicillin. LABORATORY STUDIES: White count of 9.81, hemoglobin 9.7, and platelet 158. Sodium 142, potassium 3.3, and creatinine 1.49. No new serology available. No new immunology available. No new toxicology available. MICROBIOLOGY: No new microbiology studies available. RADIOLOGY STUDIES: No new radiology studies. ASSESSMENT AND PLAN: 1. Bacteremia with Staph agalactiae group B, on admission on 08/23. 2. Altered mental status. 3. Multiple wounds. 4. Edema of all extremities. 5. Funguria. 6. Status post leukocytosis. 7. Dysphagia. 8. Pulmonary edema. 9. Severe debility. 10. Obesity. 11. The patient remains on Diflucan and ampicillin. Plan is to be transferred to LTAC for continuation of her medical care, monitor for aspiration, elevate the back of the bed at least 30 degrees at all times. This was discussed with Dr. Barreto in details. Also discussed with the nurse. Renew antibiotics and continue to monitor. Dictated by Jemal Yanez PA-C (Al) Maurizio Barreto MD /MODL /[id number]
[2019-09-12] MEDS ORDERED: POTASSIUM CHLORIDE 20MEQ/15ML UDC NG NR ×2 (13:45→17:01)
--- NOTE | 2019-09-12 14:32 | NUR ---
Nutrition Intervention Note RD Recommendation(s) for Physician: - Recommend Glucerna 1.5 @ goal rate of 45 mL/hr - Fluid management per MD (provides 1620 kcal, 89 g protein, and 820 mL water) Plan of Care: RD following, monitoring for tolerance and adequacy, tube feed recommendation Nutrition reason for involvement: Follow up RD Assessment 09/11: Follow up. Per MD note, pt is more alert and responsive today. Pt was receiving Nepro @ 40 mL/hr at time of visit per RN. Continue to recommend Glucerna 1.5 @ 45 mL/hr at this time. Will continue to monitor. 09/08: Follow up. Pt remains altered. Speech therapy evaluated pt yesterday and recommended pt remain NPO since pt is not alert for PO intake and shows signs of aspiration. A dobhoff feeding tube is going to be placed per RN. Will continue to monitor. 09/03: follow up. RN stated pt continues with AMS and is not eating anything. Pt has been on full liquid diet for 8 days. Recommend advancing diet as medically appropriate. Encourage PO intake and Glucerna nutrition supplement shakes. Will continue to monitor 08/31: Follow up. Pt continues with AMS, unable to obtain hx- appears well nourished. Pt with R foot wound, possible osteomyelitis. Pt with poor intake, 0-50% of meals within the past week and currently on a supplement- Glucerna Shake TID. Chart reviewed. Will continue to monitor. (08/24) 79 YOF admitted for DKA and severe sepsis found to have healing broken ribs and L2 fracture upon admit due to falls per MD notes. Pt discussed during am MDR, continues on insulin drip and CLD tolerance pending. Pt currently PUI, unable to obtain hx at time of visit. No reported poor intake per admit H&P. Pt wt stable x 1 yr per prior admit wt of 132#. Pt educated on DM diet restrictions at prior admit, will address education needs at follow up visit. Chart reviewed. Labs and meds reviewed. Primary Diagnose(s): DKA, severe sepsis PMH: DM2, Afib, HTN, CHF, hypothyroidism, diverticulosis GI: LBM 09/10 Skin: R foot - diabetic wound, cellulitis Labs: 09/11: Na 142, K 3.3, Cr 1.49, BUN 54. Glu 226 09/08: Na 146, K 3.5, Cr 1.65, BUN 44, Ca 8.3, Glu 81 (09/03) Na 133, K 4.1, BUN 46, Cr 1.87, Ca 7.6 (08/31) Na 149, K 3.3, BUN 59, Cr 1.94, gluc 114, POC Gluc 82-107, Ca 8 Meds: insulin, protonix, IV bumetanide, IV iron, levothyroxine, lasix, antibiotic Ht: 62 in Wt: 174 lbs (09/08 ) 146 lbs (09/02) 131 lb (08/24) Suspect possible weight error BMI: 24 kg/m2 (using wt of 131 lbs) IBW: 110 lb Malnutrition Evaluation (09/04/19) The patient does not meet criteria for a specified degree of malnutrition at this time. Will re-evaluate at follow-up as appropriate. Energy intake: <75% of estimated energy requirements for >7 days Weight loss: unable to assess Fat loss: none, ample triceps fold thickness Muscle loss: none, shoulder round Supporting Evidence: Fluid accumulation: none Functional Status: unable to evaluate Nutrition Prescription (Diet Order): Nepro @ 40 mL/hr (provides 1728 kcal, 78 g protein) Estimated Nutritional Needs: 3957-0814 calories/day (25-30 kcal/kg CBW) Weight used: 131 lbs 60-89 g protein/day (1-1.5 g pro/kg CBW) Weight used: 131 lbs Diet Adequacy: Meeting calorie needs, meeting protein needs at this time Diet Tolerance: tolerating TF Diet education: Diet education is not indicated Nutrition Care Level: high Nutrition Diagnosis: Inadequate energy and protein intake related to AMS as evidenced by need for enteral nutrition. Goal: Patient will meet 75-100% of estimated needs by follow up Progress: progressing Interventions: - Composition, Rate, Route, Collaboration with other providers Monitoring/Evaluation: -Total energy intake, Total protein intake, Formula/Solution, Weight change Signed: Mary Grace Rosales RD, LD
--- NOTE | 2019-09-12 15:13 | Progress Note ---
DATE: 09/12/2019 SUBJECTIVE: Remains swollen, quite weak. Multiple areas of skin damage and wounds. Serum CO2 is rising. On bicarb drip for early acidosis. PHYSICAL EXAMINATION: GENERAL: Appears frail, lying in bed. SKIN: Multiple ecchymoses and multiple bandages. VITAL SIGNS: Temp 96.2, pulse 96, blood pressure 111/70. CHEST: Clear. Diminished breath sounds at bases. EXTREMITIES: 1 to 2+ edema. NEUROLOGIC: Alert with generalized weakness. ASSESSMENT: Fluid overload, alkalosis, suspected acute kidney function is actually going to be a bit worse once diuresis is achieved. At this point chemistries are consistent with chronic kidney disease stage 3. PLAN: DC IV fluids. Change Lasix to scheduled. Avoid nephrotoxins. Keep salt and water restricted. Serial chemistries. We will follow along. MD KWESI Mcpherson/ILDA /[id number]
--- NOTE | 2019-09-12 17:04 | Progress Note ---
DATE: 09/12/2019 Cardiology Progress Note SUBJECTIVE: The patient is confused. OBJECTIVE: VITAL SIGNS: Temperature 96.2 degrees, pulse 96, respiratory rate 19, blood pressure 119/70, oxygen saturation 98% on 3 L nasal cannula. GENERAL: Chronically ill-appearing elderly woman, no acute distress. LUNGS: Clear to auscultation in anterior lung machado. Decreased breath sounds at the bases. CARDIOVASCULAR: Normal rate. Regular rhythm. No murmur. Normal S1 and S2. ABDOMEN: Soft and nontender. EXTREMITIES: Edematous. CARDIAC MEDICATIONS: Bumex drip, amiodarone 200 mg p.o. daily, levothyroxine 50 mcg IV daily, Lasix 20 mg IV b.i.d.. LABORATORY DATA: WBC 9.81, hemoglobin 9.7, hematocrit 29.8, platelets 158. Sodium 142, potassium 3.3, chloride 99, CO2 34, BUN 54, creatinine 1.49. TELEMETRY: Telemetry was personally reviewed and interpreted, revealing ventricular paced rhythm. IMPRESSION: 1. Chronic atrial fibrillation status post AV node ablation. 2. Coronary artery disease status post RCA PCI. 3. Chronic systolic heart failure. 4. Hypertension. 5. Peripheral arterial disease with diabetic foot wound. 6. Right lower extremity foot ulcer. 7. Acute kidney injury on chronic kidney disease, improving. 8. Diabetic ketoacidosis. 9. Sepsis. 10. Altered mental status. RECOMMENDATIONS: IV diuretics per Nephrology. She continues to have significant edema and will require further diuresis. Blood pressure is stable. Continue to hold antihypertensive therapy. IV antibiotics per Infectious Disease. Wound care per Podiatry. Peripheral angiogram is on hold at this time given her current debility and acute kidney injury. We will reassess as an outpatient once patient has recovered from her acute illness. Monitor patient closely on telemetry. Continue current cardiac medications. Thank you for this consult. We will continue to follow. Ruth Joseph MD ABS/MODL /[id number]
[2019-09-12] MEDS ORDERED: ALBUMIN 25% 25GM 100ML 0.25 GM/ML BTL IV NR (17:30)
[2019-09-12] MEDS ORDERED: NOREPINEPHRINE INJ 4MG/4ML 8 MG in DEXTROSE 5% 250ML 250 ML IV SCH (17:45)
--- NOTE | 2019-09-12 17:45 | NUR ---
Pt with declining condition. HR 93, BP 90/49, O2 sat demonstrates 86 to 94 with poor pleth. The temperature remains 95.5 with warm blankets. Daughter at bedside. Daughter has spoken with Dr Knapp via telephone. Have called Dr Suri Roberts to notify him the daughter wants pressors and Dr Knapp requests Dr Roberts to consider pressors. A warming blanket has become available from the warehouse engineer and placed on patient. Dr Roberts ordered a one time albumin until pt can be moved to ICU and placed on levophed.
[2019-09-12 17:57] LABS: ABG PCO2 65 mmHg (35-45); ABG PH 7.35 (7.35-7.45)
[2019-09-12 17:58] LABS: ABG HCO3 36 mmol/L (22-26); ABG PO2 63 mmHg (80-105)
[2019-09-12] MEDS: FUROSEMIDE INJ 10 MG/ML 2 ML VIAL IV SCH (18:00)
--- NOTE | 2019-09-12 18:16 | Diagnostic Imaging Report ---
EXAMINATION: CHEST SINGLE (PORTABLE) INDICATION: ^Pulmonary edema ^[id number] ^1745 COMPARISON: 09/09/2019 FINDINGS: AP view TUBES and LINES: Stable infradiaphragmatic ductal tube, right IJ central venous catheter, and 2 leads ICD. LUNGS: Low lung volumes. Worsening pulmonary edema. Bibasilar atelectasis. PLEURA: No pleural effusion or pneumothorax. HEART AND MEDIASTINUM: Stable enlargement of the cardiac silhouette. BONES AND SOFT TISSUES: Status post ORIF of the cervical spine. Soft tissues are unremarkable. UPPER ABDOMEN: No free air under the diaphragm. IMPRESSION: Worsening bilateral pulmonary edema. Signed by: Dr. Cecilia Price M.D. on 09/12/2019 6:13 PM
--- NOTE | 2019-09-12 19:09 | Progress Note ---
DATE: SUBJECTIVE: The patient is not responding quite as well as yesterday. According to the daughter, her extremities are colder. Her blood pressure is 88/60. PHYSICAL EXAMINATION: VITAL SIGNS: The blood pressure is 118/72 and the saturation is 95% on 3 L. HEENT: Shows no facial swelling or erythema. CARDIAC: Reveals regular rate and rhythm with normal S1, S2. There is a right IJ line. The site looks clean. There is no drainage. CARDIAC: Reveals regular rate and rhythm with a normal S1 and S2. LUNGS: Auscultation of lungs reveals rhonchorous breath sounds bilaterally. There is no wheezing. ABDOMEN: Soft, nontender. There is no rebound or guarding. EXTREMITIES: Does show cold fingers and toes. LABORATORY DATA: The white blood cell count is 9.8 and hemoglobin is 9.7. The platelet count is 158. BUN to creatinine ratio is 54 to 1.49. Potassium is 3.3. Blood sugars are 209 to 226. Albumin is 1.6. RADIOGRAPHIC DATA: Chest x-ray from the 10th shows some central venous congestion. IMPRESSION: 1. Metabolic encephalopathy. 2. Chronic systolic congestive heart failure. 3. Strep bacteremia. 4. Wound infection in the right foot. 5. Peripheral vascular disease. 6. Diabetic ketoacidosis. 7. Chronic renal failure stage 3. PLAN: 1. Continue current antibiotics. 2. Albumin. 3. Repeat ABG. 4. Chest x-ray. 5. Continue amiodarone. 6. Continue current antibiotics. 7. Continue to monitor blood sugars and give insulin as needed. Augusto Roberts MD [facility]/MODL /[id number]
--- NOTE | 2019-09-12 19:29 | NUR ---
Received patient from day nurse, patient is alert, nodes head with questions and able to move upper extremity, patient blood pressure is on the low side and her oxygen is also on the low side, patient is projected to need drips and so pending transfer to ICU, as per day nurse patient family members are aware of patient critical status. Will continue to monitor.
--- NOTE | 2019-09-12 19:45 | Progress Note ---
DATE: 09/12/2019 SUBJECTIVE: The patient at bedside, doing somewhat better. Still somewhat confused with a lot of swelling to both upper and lower extremities. OBJECTIVE: VITAL SIGNS: Afebrile. Pulse rate 96, respiration 19, blood pressure 119/70, and O2 saturation 98% on nasal cannula at 2 L/minute. EXTREMITIES: Ulcerations to the right lower extremity, getting somewhat better still some drainage. Negative foul smell. Tendon exposed to the 1st, 2nd, 3rd, and 4th metatarsal phalangeal joint shafts, some necrosis overlying the 1st metatarsophalangeal joint, also necrosis overlying the medial aspect of the right talotibial joint, but some granulation tissue noted with negative foul smell with the ulcerations, tracking down to bone. LABORATORY DATA: Labs noted. White blood cell count of 9.81. ASSESSMENT: Grade 4 ulcer, osteomyelitis, cellulitis with peripheral arterial disease, and lymphedema. PLAN: We will continue to treat conservatively with IV antibiotics and local wound care. Continue offloading. The patient has gotten better. Prognosis guarded. LANDEN Moya/ILDA /[id number]
--- NOTE | 2019-09-12 20:55 | NUR ---
Patient transferred to ICU
--- NOTE | 2019-09-12 21:30 | NUR ---
PATIENT ARRIVED TO ICU BED 189 ON 15L/NONREBREATHER FOR O2, O2 SATURATION 100%. PATIENT LETHARGIC, GUILLEN CATHETER DRAINING TO BEDSIDE, WEEPING EDEMA TO UPPER EXTREMITIES AND KNOWN WOUNDS TO LOWER EXT. AT THIS TIME LEVOPHED NOT STARTED DUE TO MAP ABOVE 65 AND LASIX NOT GIVEN ALONE DUE TO LOWERING BP. WILL CALL PT SON TO VERIFY HIS STATUS POA LISTED ON SBAR DOCUMENTATION AND SEE IF HE IS ABLE TO SEND PAPERWORK THAT IS NOT CURRENTLY IN THE CHART. WILL CONT TO MONITOR.
--- NOTE | 2019-09-12 21:36 | NUR ---
SPOKE WITH THE SON, YUE PORTER, WHO WAS PREVIOUSLY STATED TO BE THE PATIENT'S POA AND ASKED IF HE HAD WRITTEN DOCUMENTATION SHOWING THIS HE STATES NO HE DOESN'T HAVE ANYTHING FORMALLY DOCUMENTED AND ALSO STATES HE'S THE OLDEST CHILD OF THE PATIENT. EDUCATED HIM ON PATIENT NOW BEING IN ICU AND WHAT THE FAMILY WANTED US TO DO FAR THE DNAR YUE STATES NO CHEST COMPRESSIONS, NO INTUBATION, NO VENT, NOTHING TO PROLONG BUT WE CAN GIVE HER THE LEVOPHED FOR BP MANAGEMENT ONLY. HE STATES "IF SOMETHING CHANGES WITH BREATHING TO CALL ME BACK AND WE WILL DECIDE TO STOP THE MEDS AT THAT TIME". WILL CONT TO MONITOR.
--- NOTE | 2019-09-12 22:10 | NUR ---
PATIENT'S DAUGHTER, KATHYA, CALLED TO CHECK ON STATUS OF HER MOTHER. ADVISED HER THAT BP WAS 102/59 WITHOUT BEING ON THE LEVOPHED AND MAP OF 74 SO AT THIS TIME HAVE NOT STARTED THE DRUG. SPOKE WITH DAUGHTER ABOUT CONVERSATION WITH THE BROTHER AND SHE AGAIN VERIFIED HE DID THAT THEY DO NOT WANT CHEST COMPRESSIONS, NO INTUBATION, NO VENTILATOR AND THAT PATIENT WOULD BE DNR STATUS. ADVISED DAUGHTER THAT FAMILY WOULD BE CONTACTED IF ANYTHING CHANGED WITH THE PATIENT'S CONDITION AND THAT PER ALL NOTED DISCUSSIONS WITH DOCTORS THE PATIENT'S VERY CRITICALLY ILL AND THAT HER PROGNOSIS IS POOR. PATIENT STATES SHE UNDERSTANDS AND WILL CHECK ON HER LATER.
[2019-09-12] MEDS ORDERED: ALBUMIN 25% 25GM 100ML 0.25 GM/ML BTL IV ONE ×2 (23:30→23:45)
--- NOTE | 2019-09-12 23:34 | NUR ---
DR SOLIS CAME TO SEE PT, PT ALREADY ON BUMEX SO NO ADDITIONAL DIURETIC ORDERED. STOP THE TUBE FEEDINGS DUE TO SOB WORSENING WHILE ADMINISTERING. PT TO BE GIVEN ALBUMIN IV AT THIS TIME. Addendum: 09/12/19 at 2335 by Sylwia Myrick RN DR SOLIS ALSO ORDERED BIPAP FOR PATIENT TO BE USED DUE TO HIGH RR AND LOW O2 SAT.
[2019-09-12] MEDS ORDERED: ALBUMIN 25% 12.5GM 50ML 100 ML IV ONE (23:49)
[2019-09-13] VITALS (24 sets, daily range): BP systolic 111–148; BP diastolic 54–105
[2019-09-13] MEDS: PANTOPRAZOLE 40 MG 10ML VIAL IV SCH ×2 (00:09→13:48)
[2019-09-13] MEDS: INSULIN LISPRO 100 UNIT/1 ML 3ML VIAL SQ SCH ×8 (00:23→17:53)
--- NOTE | 2019-09-13 00:31 | NUR ---
DR STEPHENS CAME TO SEE PATIENT, ORDERED TO STOP THE BICARB DRIP AND NO OTHER FLUIDS, EDUCATED WE ARE HOLDING THE TUBE FEEDS PER DR SOLIS ORDER SINCE IT MAKES PT SOB WORSE. ED DR STEPHENS OF DISCUSSION WITH FAMILY ABOUT DNR STATUS PREVIOUSLY DOCUMENTED THIS SHIFT AND DR SOLIS'S PUTTING HER ON BIPAP AND USE OF ALBUMIN. WILL CONT TO MONITOR.
--- NOTE | 2019-09-13 01:31 | Progress Note ---
DATE: After my rounds, yesterday morning where the patient was much more alert, talkative to me, doing well, she unfortunately started to deteriorate where she became more hypotensive as well as hypothermic despite warming blankets and she was eventually placed on a warming apparatus. I did have a talk with the son, who is more appropriate about her expectations about her critical illness and most likely possible . When I had a discussion with the daughter again whom I spoke with about 3 or 4 days ago, she was under the impression that I promised her that I could save her the other day, which was so far from the true. The patient is gravely ill and at that time, I have told her that I felt optimistic that she could still survive because she was improving at that time, but she still had a very long way to go and I specifically told her at that time 3 or 4 days ago that as much as we are right now, she could easily pass away within an hour and somehow she understood that I promised her that I would save her which is untrue, so I rediscussed with her that even though patient had been showing signs of improvement up to this morning that due to her age or poor compliance with her diabetes as an outpatient and severe illnesses and comorbidities that her body may be in the process of failing even though we were seeing signs of improvement up until this morning and that we would do the best that we can per their wishes of not intubating or doing CPR, but that her overall prognosis is very poor, possibly grave and that she needs to be prepared that she may very well soon, so I believe she understood me better this time and at no point did I promise her that I was going to save her. Currently, she is in the ICU on a BiPAP where she slightly arouses when I talk to her, which is definitely decreased from this morning. PHYSICAL EXAMINATION: VITAL SIGNS: She is currently 97.5, pulse 98, blood pressure 105/66, and sats 98% on BiPAP. CARDIOVASCULAR: Regular rate and rhythm. LUNGS: Decreased breath sounds bilaterally. ABDOMEN: Good bowel sounds. Soft, nontender. EXTREMITIES: Show significant anasarca. Right foot is still wrapped, but no discharge noticed near the wound. ASSESSMENT AND PLAN: 1. Encephalopathy appears to be worsening. Unsure of the etiology, could just be secondary to metabolic and toxic secondary to overall grave illness. 2. Sepsis. Continue with her antibiotic. 3. Acute respiratory failure with hypoxia. Continue with her BiPAP per Pulmonary. 4. Hypothermia. We will continue with Edinson Hiller. 5. Anemia. Continue to monitor. 6. Chronic kidney disease stage 3. We will also continue to monitor. 7. Diabetes. Continue with current care with insulin. 8. Hypothyroidism, continue with her medications. 9. Recent gastrointestinal bleed. Still continue to hold off antibiotics, blood thinners even though she is high risk for deep venous thrombosis and pulmonary embolus. Please see hospital chart for details. MD PATSY Art/MODL /[id number]
[2019-09-13] MEDS: BUMETANIDE 10 MG in SODIUM CHLORIDE 0.9% 100 ML 60 ML IV SCH ×3 (05:21→21:30)
[2019-09-13] MEDS: FUROSEMIDE INJ 10 MG/ML 2 ML VIAL IV SCH ×2 (05:32→18:47)
[2019-09-13] MEDS: LEVOTHYROXINE SODIUM 100 MCG/VIAL IV SCH (05:32)
[2019-09-13 05:44] LABS: BASOPHILS % 0.1 % (0.0-1.0); EOSINOPHILS % 0.1 % (0.0-6.0); HEMATOCRIT 26.6 % (34.2-44.1); HEMOGLOBIN 8.2 g/dL (12.0-16.0); LYMPHOCYTES # (AUTO) 0.5 (1.0-3.2); LYMPHOCYTES % 6.5 % (18.0-39.1); MEAN CORPUSCULAR HEMOGLOBIN 29.8 pg (28-32); MEAN CORPUSCULAR HGB CONC 30.8 g/dL (31-35); MEAN CORPUSCULAR VOLUME 96.7 fL (81-99); MONOCYTES # (AUTO) 0.3 (0.2-0.8); MONOCYTES % 3.8 % (4.4-11.3); NEUTROPHILS # (AUTO) 6.1 (2.1-6.9); NEUTROPHILS % 87.3 % (38.7-80.0); PLATELET COUNT 158 x10e3/uL (140-360); RED BLOOD COUNT 2.75 x10e6/uL (3.6-5.1); RED CELL DISTRIBUTION WIDTH 19.7 % (11.7-14.4)
--- NOTE | 2019-09-13 06:10 | NUR ---
SPOKE WITH SON, YUE PORTER, TO UPDATE HIM ON STATUS OF THE PATIENT. ADV HIM THAT BOTH DR SOLIS AND DR STEPHENS SAW HIS MOTHER LAST NIGHT AND THAT SHE HASN'T NEEDED TO BE PUT ON THE LEVOPHED DRIP OF YET BUT THAT SHE IS ON BIPAP FOR HER LOW OXYGEN SATURATION AND RAPID BREATHING. ADV THAT PATIENT'S STATUS IS STILL CRITICAL AND THAT PER THE DOCTOR'S NOTES WE CAN ONLY TAKE THIS A MOMENT AT A TIME. HE STATES HE UNDERSTANDS AND WILL LET HIS SISTER KATHYA KNOW. WILL CONT TO MONITOR.
[2019-09-13 06:25] LABS: ALBUMIN 2.7 g/dL (3.5-5.0); ANION GAP 13.8 mmol/L (8-16); CALCIUM 8.3 mg/dL (8.4-10.2); CREATININE, SERUM 1.45 mg/dL (0.57-1.11); POTASSIUM 3.8 mmol/L (3.5-5.1)
--- NOTE | 2019-09-13 08:59 | NUR ---
hemodynamic decline and more sedated today transfered to icu last night for hemodynamic instability 96 regular 97.9 127/76 lethargic/obtunded no meningismus or nuchal rigidity. erica-orbital edema pupils reactive no nuchal rigidity no bruits rrr ronchi abd soft no guarding , no distention moves all 4 extremities symmetrically 3/5 away from nox stim sensory grossly symmetric diffuse bruising chest and arms a/p- sepsis as per primary team severe toxic/metabolic encephalopathy no evidence of seizure or meningitis or strokes supportive care and medical managment
[2019-09-13] MEDS: INSULIN GLARGINE 100 UNITS/ML VIAL SQ SCH (09:00)
[2019-09-13] MEDS: AMPICILLIN SOD 2 GM/NS 100ML 100 ML IV SCH ×2 (09:03→20:30)
[2019-09-13] MEDS: COLLAGENASE OINTMENT 30 GM TUBE TOP SCH ×2 (09:04→13:52)
[2019-09-13] MEDS: BACITRACIN ZINC 15 GM OINT TOP SCH (09:04)
[2019-09-13] MEDS: IRON SUCROSE 100 MG in SODIUM CHLORIDE 0.9% 100 ML 100 ML IV SCH (09:04)
[2019-09-13] MEDS: BALSAM PERU/CASTOR OIL 60 GM OINT...G. TP SCH (09:05)
[2019-09-13] MEDS: DEXTROSE 50% SYRINGE 50 ML IV PRN ×2 (09:06→17:52)
[2019-09-13] MEDS: AMIODARONE HCL 200 MG TAB PO SCH (10:23)
--- NOTE | 2019-09-13 12:37 | Progress Note ---
DATE: SUBJECTIVE: The patient is seen and evaluated. Available labs and notes reviewed. Discussed with the nurse. The patient is in ICU secondary to hypotensive on arrival; however, she is not hypotensive anymore and the patient was never started on pressors and remains off pressors. Current systolic BP is 119. REVIEW OF SYSTEMS: The patient is on BiPAP. Unable to obtain review of systems. OBJECTIVE: VITAL SIGNS: Temperature is 97.6, pulse 91, respirations 20, and blood pressure 117/71. GENERAL: Comfortable in bed in no acute distress on BiPAP, also receiving Bumex drip and ampicillin is running currently, no pressors. No acute distress. CV: S1 and S2. CHEST: Equal expansion. Decreased breath sounds. No acute distress. ABDOMEN: Soft, obese, and nontender. Positive bowel sounds. HEENT: Moist. No pallor. No JVD. EXTREMITIES: Multiple ecchymosis with 2/3+ edema of the extremities and multiple wounds with some concern of venous stasis ulcers of the right lower extremity. MEDICATIONS: Medication list reviewed for Infectious Disease point of view. Patient is on ampicillin. LABORATORY STUDIES: White count 6.93, hemoglobin 8.2, platelet 158. Sodium 143, potassium 3.8, creatinine 1.45. No new serology available. No new immunology available. No new toxicology available. Microbiology, no new microbiology available. ASSESSMENT AND PLAN: 1. Hypotensive apparently last night, however, hypotensive upon arrival to ICU. The patient remains off pressors; however, she is on BiPAP and resting comfortably. 2. Bacteremia with Streptococcus agalactiae group B on 08/24/2019 with a recheck negative of 08/29/2019. 3. Funguria with urine culture, Sarah albicans on 08/31/2019-status post Diflucan. 4. Multiple wounds extremities with multiple ecchymosis and edema. 5. Leukocytosis, resolved. 6. Severe debility. 7. Pulmonary edema. 8. Dysphagia. 9. Continue with ampicillin. 10. Altered mental status, overall, improved some, but still remains lethargic and weak and confused at times. 11. Overall guarded/poor prognosis. Discussed with Dr. Barreto in details. Please refer to chart for more information. Dictated by Jemal Yanez PA-C (Al) MD LISA Leo/ILDA /[id number]
--- NOTE | 2019-09-13 13:58 | Progress Note ---
DATE: SUBJECTIVE: The patient was transferred to the Intensive Care Unit last night with hypotension. She received albumin and her blood pressure improved. She did not require pressors. OBJECTIVE: VITAL SIGNS: The blood pressure is 117/71, saturation is 100% on BiPAP and the pulse is 91. HEENT: Shows no facial swelling or erythema. CARDIAC: Reveals regular rate and rhythm with normal S1 and S2. LUNGS: Auscultation of lungs rhonchus breath sounds bilaterally. There is no wheezing. ABDOMEN: Soft, nontender. There is no rebound or guarding. EXTREMITIES: Shows no leg edema or calf tenderness. There is no cyanosis or clubbing. SKIN: Shows no rashes. NEUROLOGICAL: Shows no focal abnormalities. The patient is confused. LABORATORY DATA: BUN to creatinine ratio is 60 to 1.45. Other labs are within normal limits. Albumin is 2.7. White blood cell count is 6.9, hemoglobin is 8.2. The platelet count is 158. RADIOGRAPHIC DATA: Chest x-ray shows worsening bilateral pulmonary edema. ASSESSMENT: 1. Metabolic encephalopathy. 2. Acute respiratory failure. 3. Chronic renal failure stage 3. 4. Diabetes. 5. Peripheral vascular disease. 6. Strep bacteremia. PLAN: 1. Continue BiPAP. 2. Continue Lasix drip. 3. Continue to monitor blood sugars. 4. Continue to monitor mental status. 5. Prognosis remains very poor. 6. The patient is DNR as per family. Augusto Roberts MD LM/FARSHADL /[id number]
[2019-09-13] MEDS ORDERED: ALBUMIN 25% 25GM 100ML 0.25 GM/ML BTL IV ONE ×2 (14:00)
--- NOTE | 2019-09-13 14:08 | Consultation ---
DATE OF CONSULTATION: 09/13/2019 SUBJECTIVE: The patient is seen at bedside, accompanied by daughter in ICU secondary to respiratory distress. OBJECTIVE: VITALS: Afebrile, pulse rate 91, respirations 20, blood pressure 117/71, O2 saturation at 100% with BiPAP machine. LABORATORY DATA: Labs show a white blood cell count dropping to 6.93, hemoglobin 8.2. Right lower extremity looking better, ulcerations starting to become a little bit granular. Still some necrosis noted down the bone, both medially to the right talotibial joint, which the ulcers measuring more than 5-6 cm in diameter, but negative to minimal drainage. Ulceration to the overlying of first MPJ plantarly coming down dorsally and extending lateral to the fourth metatarsal shaft. Also, getting a little bit better. Some granulation tissue noted, still some drainage, but negative foul smell. Pedal pulses are diminished to both the DP and PT with pitting edema present. ASSESSMENT: Peripheral arterial disease, grade 4 ulcer and osteomyelitis with cellulitis. PLAN: We will continue offloading. Continue local wound care. Dressing was changed. Continue Santyl, followed by diluted wet-to-dry. Continue IV antibiotics. We will continue to follow. Prognosis guarded. LANDEN Moya/ILDA /[id number]
--- NOTE | 2019-09-13 15:39 | Progress Note ---
DATE: 09/13/2019 Cardiology Progress Note SUBJECTIVE: The patient was transferred to the ICU overnight due to hypoxia and hypotension. At time of exam, the patient was seen on BiPAP, but was awake and was able to deny chest pain or shortness of breath. She responded appropriately to simple questions. OBJECTIVE: VITAL SIGNS: Temperature 97.6 degrees, pulse 91, respiratory rate 20, blood pressure 117/71, oxygen saturation 100% on BiPAP. GENERAL: Chronically ill-appearing elderly woman, in no acute distress. Lethargic. On BiPAP. LUNGS: Clear to auscultation in anterior lung machado, but decreased breath sounds at the bases. CARDIOVASCULAR: Normal rate. Regular rhythm. No murmur. Normal S1 and S2. ABDOMEN: Soft, nontender. EXTREMITIES: Edematous. CARDIAC MEDICATIONS: Amiodarone 200 mg p.o. daily, furosemide 20 mg IV b.i.d., levothyroxine 50 mcg IV daily, Bumex drip. LABORATORY DATA: WBC 6.93, hemoglobin 8.2, hematocrit 26.6, platelets 158. Sodium 143, potassium 3.8, chloride 99, CO2 of 34, BUN 60 and creatinine 1.45. TELEMETRY: Telemetry was personally reviewed and interpreted revealing normal sinus rhythm. ASSESSMENT: 1. Acute hypoxic respiratory failure. 2. Sepsis. 3. Right lower extremity foot ulcer. 4. Peripheral arterial disease with diabetic foot wound. 5. Chronic atrial fibrillation, status post AV node ablation. 6. Coronary artery disease, status post RCA PCI. 7. Chronic systolic heart failure. 8. Acute kidney injury, chronic kidney disease, improving. 9. Hypertension, currently previously hypotensive. 10. Altered mental status. 11. Diabetic ketoacidosis, resolved. RECOMMENDATIONS: The patient needs further diuresis. Urine output is currently acceptable, IV diuretics per Nephrology given her acute on chronic kidney disease. Hold antihypertensive therapy due to recent hypotension. IV antibiotics per Infectious Disease. Wound care per Podiatry. The patient is not a candidate for peripheral angiogram at this time given her current debility and acute kidney injury. This can be reassessed if the patient recovers from her current illness. Monitor patient closely on telemetry. Continue current cardiac medications. Her prognosis is poor. Thank you for this consult. We will continue to follow. MD YAIMA Mcwilliams/FARSHADL /[id number]
[2019-09-14] VITALS (24 sets, daily range): BP systolic 99–142; BP diastolic 46–97
[2019-09-14] MEDS: PANTOPRAZOLE 40 MG 10ML VIAL IV SCH ×2 (02:16→12:30)
[2019-09-14] MEDS: FUROSEMIDE INJ 10 MG/ML 2 ML VIAL IV SCH (05:00)
[2019-09-14] MEDS: LEVOTHYROXINE SODIUM 100 MCG/VIAL IV SCH (05:00)
[2019-09-14 05:52] LABS: HEMATOCRIT 26.5 % (34.2-44.1); HEMOGLOBIN 8.3 g/dL (12.0-16.0); MEAN CORPUSCULAR HEMOGLOBIN 30.4 pg (28-32); MEAN CORPUSCULAR HGB CONC 31.3 g/dL (31-35); MEAN CORPUSCULAR VOLUME 97.1 fL (81-99); PLATELET COUNT 152 x10e3/uL (140-360); RED BLOOD COUNT 2.73 x10e6/uL (3.6-5.1); RED CELL DISTRIBUTION WIDTH 19.4 % (11.7-14.4)
[2019-09-14] MEDS: INSULIN LISPRO 100 UNIT/1 ML 3ML VIAL SQ SCH ×8 (06:00→18:00)
[2019-09-14 06:22] LABS: ALBUMIN 2.5 g/dL (3.5-5.0); ANION GAP 15.4 mmol/L (8-16); CALCIUM 8.6 mg/dL (8.4-10.2); CREATININE, SERUM 1.38 mg/dL (0.57-1.11); POTASSIUM 3.4 mmol/L (3.5-5.1)
--- NOTE | 2019-09-14 07:24 | Diagnostic Imaging Report ---
EXAMINATION: CHEST SINGLE (PORTABLE) INDICATION: ^Resp Distress ^[id number] ^0701 ^Y COMPARISON: 09/12/2019 FINDINGS: AP view TUBES and LINES: Stable triple lead left chest wall cardiac device, enteric tube, and right IJ central line. LUNGS: Limited by low lung volumes, rotation, and body habitus. Bilateral lower lung field predominant airspace opacities. PLEURA: Small bilateral pleural effusions. No visible pneumothorax. HEART AND MEDIASTINUM: Partially visualized enlarged cardiac fluid. BONES AND SOFT TISSUES: No acute osseous lesion. Soft tissues are unremarkable. UPPER ABDOMEN: No free air under the diaphragm. IMPRESSION: Bilateral lower lung field predominant airspace opacities, representing edema and/or pneumonia, improved from prior exam. Small bilateral pleural effusions. Signed by: Dr. Levi Arredondo MD on 09/14/2019 7:20 AM
[2019-09-14] MEDS: AMIODARONE HCL 200 MG TAB PO SCH (08:10)
[2019-09-14] MEDS: AMPICILLIN SOD 2 GM/NS 100ML 100 ML IV SCH ×2 (08:10→20:00)
[2019-09-14] MEDS: IRON SUCROSE 100 MG in SODIUM CHLORIDE 0.9% 100 ML 100 ML IV SCH (08:53)
[2019-09-14] MEDS: INSULIN GLARGINE 100 UNITS/ML VIAL SQ SCH (09:00)
[2019-09-14] MEDS: COLLAGENASE OINTMENT 30 GM TUBE TOP SCH ×2 (09:07→16:40)
[2019-09-14] MEDS: BALSAM PERU/CASTOR OIL 60 GM OINT...G. TP SCH (09:07)
[2019-09-14 09:13] LABS: LYMPHOCYTES % (MANUAL) 8 % (19-48); MONOCYTES % (MANUAL) 1 % (3.4-9.0); MYELOCYTES % (MANUAL) 2 % (0-0); NEUTROPHILS % (MANUAL) 89 % (40-74); NUCLEATED RED BLOOD CELLS 2
[2019-09-14 09:14] LABS: POLYCHROMASIA FEW
[2019-09-14 09:15] LABS: ANISOCYTOSIS MODERATE; MICROCYTOSIS SLIGHT; OVALOCYTES FEW; PLATELET ESTIMATE ADEQUATE; PLATELET MORPHOLOGY COMMENT NORMAL; RBC MORPHOLOGY COMMENT NORMAL
--- NOTE | 2019-09-14 09:34 | NUR ---
hemodynamic decline and more sedated today transfered to icu last night for hemodynamic instability 86 regular 98.2 127/76 lethargic/obtunded no meningismus or nuchal rigidity. erica-orbital edema pupils reactive no nuchal rigidity no bruits rrr ronchi abd soft no guarding , no distention moves all 4 extremities symmetrically 3/5 away from nox stim sensory grossly symmetric diffuse bruising chest and arms a/p- sepsis as per primary team severe toxic/metabolic encephalopathy no evidence of seizure or meningitis or strokes supportive care and medical management neuro-logically stable
--- NOTE | 2019-09-14 10:01 | Progress Note ---
DATE: 09/14/2019 SUBJECTIVE: The patient is seen at the ICU bed, not responsive to verbal stimuli, confused. OBJECTIVE: VITAL SIGNS: Afebrile, pulse rate 83, respirations 14, blood pressure 124/61, and O2 saturation 100%. The patient is on BiPAP machine. EXTREMITIES: Right foot ulcerations getting better slowly. Some granulation tissue noted. Decreased drainage. Negative foul smell. Still some cellulitis with pedal pulses diminished. LABORATORY DATA: Noted. White blood cell count of 7.6. ASSESSMENT: Multiple grade 4 ulcers, osteomyelitis, peripheral arterial disease, diabetic neuropathy with cellulitis. PLAN: We will continue IV antibiotics. Continue local wound care with Santyl, followed by diluted wet-to-dry Betadine. Continue offloading. We will continue to follow. LANDEN Moya/ILDA /[id number]
[2019-09-14] MEDS: BUMETANIDE 10 MG in SODIUM CHLORIDE 0.9% 100 ML 60 ML IV SCH (12:14)
--- NOTE | 2019-09-14 13:24 | NUR ---
ST NOTE: Pt on bi-pap, unable to participate. Will follow pt status. Handoff to RUBINA Reyes
[2019-09-14] MEDS ORDERED: POTASSIUM CHLORIDE 20MEQ/100ML 200 ML IV ONE (17:00)
--- NOTE | 2019-09-14 18:09 | Progress Note ---
DATE: SUBJECTIVE: Ms. Phillips remains in intensive care unit, lethargic. The patient is really not doing well. She has generalized edema. No family at the bedside, but discussed with Dr. Knapp. REVIEW OF SYSTEMS: Could not be obtained. PHYSICAL EXAMINATION: GENERAL: Currently, noncommunicative, lethargic. VITAL SIGNS: Stable, afebrile. HEENT: She is not icteric. NECK: Supple. CHEST: Few crackles. HEART: S1 and S2. No S3, S4, or murmur. ABDOMEN: Soft. IMPRESSION: Generalized edema, concerned about congestive heart failure, chronic kidney disease, peripheral vascular disease, and atrial fibrillation. Prognosis is poor. The patient is not doing well in general. Discussed with attending. Discussed with medical team. MD GRACE Leo/ILDA /[id number]
--- NOTE | 2019-09-14 19:50 | Progress Note ---
DATE: SUBJECTIVE: The patient is afebrile. She remains on BiPAP. She is urinating with a Bumex drip. She is responding with some disorientation. PHYSICAL EXAMINATION: VITAL SIGNS: The blood pressure is 124/79, saturation is 100% on BiPAP, and the pulse is 99. HEENT: No facial swelling or erythema. CARDIAC: Reveals a regular rate and rhythm with normal S1, S2. LUNGS: Auscultation of lungs reveals crackles at the bases. There is no wheezing. ABDOMEN: Soft, nontender. There is no rebound or guarding. There is no leg edema or calf tenderness. There is no cyanosis clubbing. SKIN: No rashes. NEUROLOGICAL: No focal mass. LABORATORY DATA: BUN to creatinine ratio is 55 and 1.38. Sodium is 145, potassium is 3.4. Albumin is 2.1. White blood cell count is 7.6 and hemoglobin is 8.3. The platelet count is 152. Chest x-ray shows bilateral pulmonary infiltrates. IMPRESSION: 1. New chronic systolic congestive heart failure. 2. Atrial fibrillation. 3. Pulmonary edema. 4. Metabolic encephalopathy. 5. Chronic renal failure, stage 3. 6. Diabetes. 7. Strep bacteremia. 8. Peripheral vascular disease. PLAN: 1. Continue Bumex drip. 2. Continue BiPAP. 3. Continue to monitor blood sugars. 4. Prognosis remains very poor. 5. Case discussed with daughter and nursing staff. 6. The patient is DNR. MD VANDANA Roth/ILDA /[id number]
--- NOTE | 2019-09-14 20:20 | Progress Note ---
DATE: Cardiology Progress Note SUBJECTIVE: The patient did not tolerate weaning off BiPAP, is tachypneic. OBJECTIVE: VITAL SIGNS: Temperature is 97.9, heart rate 90, respirations 16, blood pressure is 109/60, oxygen saturation 100% on BiPAP. GENERAL: Chronic ill-appearing, no apparent distress. CARDIOVASCULAR: Regular rate and rhythm. LUNGS: Diminished breath sounds at bases. ABDOMEN: Soft, nontender, nondistended. EXTREMITIES: Wounds present. CARDIOVASCULAR MEDICATIONS: Reviewed. LABORATORY DATA: Reviewed. Hemoglobin is 8.3. Creatinine is 1.38. IMPRESSION: 1. Acute respiratory failure with hypoxia. 2. Sepsis. 3. Right lower extremity foot ulcer. 4. Peripheral artery disease with diabetic foot wound. 5. Chronic atrial fibrillation, status post AV node ablation. 6. Coronary artery disease, status post percutaneous coronary intervention to the right coronary artery. 7. Chronic systolic congestive heart failure. 8. Kbfip-nb-maqduii kidney disease. 9. Altered mental status. 10. Diabetic ketoacidosis , resolved. RECOMMENDATIONS: Continue diuresis. Monitor in's and out's. Continue current cardiovascular medications. Local wound care per Podiatry. The patient is not a candidate for peripheral angiogram at this time, given her current debility and acute kidney injury. DO NORMA Sanchez/FARSHADL /[id number]
[2019-09-14] MEDS ORDERED: BUMETANIDE 10 MG in SODIUM CHLORIDE 0.9% 100 ML 60 ML IV SCH (21:00)
[2019-09-15] VITALS (22 sets, daily range): BP systolic 92–130; BP diastolic 48–88
[2019-09-15] MEDS: PANTOPRAZOLE 40 MG 10ML VIAL IV SCH ×2 (02:35→11:34)
[2019-09-15] MEDS ORDERED: BUMETANIDE 10 MG in SODIUM CHLORIDE 0.9% 100 ML 60 ML IV SCH (03:00)
[2019-09-15] MEDS: INSULIN LISPRO 100 UNIT/1 ML 3ML VIAL SQ SCH ×8 (05:15→17:03)
[2019-09-15 05:40] LABS: HEMATOCRIT 27.9 % (34.2-44.1); HEMOGLOBIN 8.6 g/dL (12.0-16.0); MEAN CORPUSCULAR HGB CONC 30.8 g/dL (31-35); MEAN CORPUSCULAR VOLUME 97.2 fL (81-99); PLATELET COUNT 197 x10e3/uL (140-360); RED BLOOD COUNT 2.87 x10e6/uL (3.6-5.1); RED CELL DISTRIBUTION WIDTH 19.9 % (11.7-14.4)
[2019-09-15 06:02] LABS: ALBUMIN 2.3 g/dL (3.5-5.0); ALBUMIN/GLOBULIN RATIO 0.8 (0.8-2.0); ANION GAP 17.8 mmol/L (8-16); CALCIUM 8.5 mg/dL (8.4-10.2); CREATININE, SERUM 1.43 mg/dL (0.57-1.11); POTASSIUM 3.8 mmol/L (3.5-5.1)
[2019-09-15] MEDS: LEVOTHYROXINE SODIUM 100 MCG/VIAL IV SCH (06:38)
[2019-09-15 07:02] LABS: INR 1.08; PROTHROMBIN TIME 14.7 seconds (11.9-14.5)
[2019-09-15 07:36] LABS: ANISOCYTOSIS MODERATE; LYMPHOCYTES % (MANUAL) 7 % (19-48); MONOCYTES % (MANUAL) 2 % (3.4-9.0); MYELOCYTES % (MANUAL) 1 % (0-0); NEUTROPHILS % (MANUAL) 90 % (40-74); PLATELET ESTIMATE ADEQUATE; POIKILOCYTOSIS SLIGHT; RBC MORPHOLOGY COMMENT ABNORMAL
[2019-09-15 07:37] LABS: PLATELET MORPHOLOGY COMMENT NORMAL
[2019-09-15] MEDS ORDERED: DEXTROSE 5% 1,000 ML IV ONE (07:45)
[2019-09-15] MEDS: AMIODARONE HCL 200 MG TAB PO SCH (08:18)
[2019-09-15] MEDS: AMPICILLIN SOD 2 GM/NS 100ML 100 ML IV SCH ×2 (08:18→20:34)
[2019-09-15] MEDS: IRON SUCROSE 100 MG in SODIUM CHLORIDE 0.9% 100 ML 100 ML IV SCH (08:18)
[2019-09-15] MEDS: COLLAGENASE OINTMENT 30 GM TUBE TOP SCH ×2 (08:31→17:01)
[2019-09-15] MEDS: BALSAM PERU/CASTOR OIL 60 GM OINT...G. TP SCH (08:31)
[2019-09-15] MEDS: INSULIN GLARGINE 100 UNITS/ML VIAL SQ SCH (08:32)
--- NOTE | 2019-09-15 09:43 | NUR ---
PT HAS BED AT [facility] PER JOHNY WITH ROMULUS ASKED DR STEPHENS FOR DC BUT HE SAID HE HAS TO SPEAK WITH PT'S DTR FIRST ESCALATED TO DR BEA ZAMARRIPA ATTEMPTED TO CALL PT'S DTR KATHYA X 3 YESTERDAY BUT NO ANSWER CM CALLED KATHYA THIS AM AND SHE ANSWERED ASKED HER TO CALL DR STEPHENS TO SPEAK WITH HIM ABOUT HER MOTHER SHE STATES SHE HAS HIS NUMBER AND WILL CALL HIM THIS MORNING COMMUNICATED ABOVE WITH DR STEPHENS TO EXPECT A CALL FROM KATHYA AT HIS OFFICE SHORTLY
--- NOTE | 2019-09-15 09:50 | Diagnostic Imaging Report ---
EXAMINATION: CHEST SINGLE (PORTABLE) INDICATION: ^Resp Distress ^[id number] ^0620 ^Y COMPARISON: 09/14/2019 FINDINGS: TUBES and LINES: Support lines and tubes unchanged. LUNGS: Very low lung volumes. Unchanged bibasilar opacities. PLEURA: Small bilateral pleural effusions. HEART AND MEDIASTINUM: Unchanged. BONES AND SOFT TISSUES: No acute osseous injury UPPER ABDOMEN: No free air under the diaphragm. IMPRESSION: Low lung volumes with unchanged bibasilar opacities and small pleural effusions. Signed by: Ilir Krueger MD on 09/15/2019 9:47 AM
[2019-09-15] MEDS: BUMETANIDE 1 MG TAB PO SCH ×2 (14:58→21:08)
--- NOTE | 2019-09-15 17:00 | Progress Note ---
DATE: SUBJECTIVE: The patient is now on 5 L. She is more awake. She is not hypotensive. PHYSICAL EXAMINATION: VITAL SIGNS: Blood pressure is 129/60, saturation is 100% on 5 L and the pulse is 89. HEENT: No facial swelling or erythema. CARDIAC: Regular rate and rhythm with normal S1 and S2. LUNGS: Auscultation of the lungs reveals rhonchorous breath sounds bilaterally. There is no wheezing. ABDOMEN: Soft and nontender. There is no rebound or guarding. EXTREMITIES: No leg edema or calf tenderness. LABORATORY DATA: Hemoglobin is 8.6 and white blood cell count is 7.4. Platelet count is 197,000. BUN to creatinine ratio is 54 to 1.43. Sodium is 146. RADIOGRAPHIC DATA: Chest x-ray shows small lung volumes with some basilar opacities. IMPRESSION: 1. Acute on chronic systolic congestive heart failure. 2. Metabolic encephalopathy. 3. Chronic renal failure stage 3. 4. Diabetes. 5. Strep bacteremia. 6. Severe peripheral vascular disease. PLAN: 1. The patient is scheduled to go to [facility]. 2. Wean diuretics. 3. Continue current antibiotics. 4. Physical therapy. 5. Monitor and control blood sugars. Augusto Roberts MD [facility]/MODL /[id number]
--- NOTE | 2019-09-15 19:00 | NUR ---
Report received from Amy CESPEDES.
--- NOTE | 2019-09-15 20:26 | Progress Note ---
DATE: 09/15/2019 SUBJECTIVE: The patient is seen at bedside. No changes. Not responsive to verbal stimuli. OBJECTIVE: VITAL SIGNS: Afebrile, pulse rate 90, respirations 17, blood pressure 121/60, and O2 saturation 100%, nasal cannula at 5 L/minute. EXTREMITIES: Ulcerations to the right lower extremity improving very slowly. Pedal pulses diminished. Some granulation tissue noted, some fibrosis and bone exposed overlying the dorsal aspect of the 1st MPJ, medial aspect of the right talotibial joint. LABORATORY DATA: Noted. White blood cell count of 7.42. ASSESSMENT: Multiple grade 4 ulcer, cellulitis, peripheral arterial disease with diabetic neuropathy. PLAN: Continue local wound care. Continue IV antibiotics. Continue offloading. We will continue to follow. Prognosis guarded. LANDEN Moya/ILDA /[id number]
[2019-09-16] VITALS (7 sets, daily range): BP systolic 116–152; BP diastolic 59–91
[2019-09-16] MEDS: PANTOPRAZOLE 40 MG 10ML VIAL IV SCH ×2 (00:11→09:13)
[2019-09-16 05:06] LABS: HEMATOCRIT 27.5 % (34.2-44.1); HEMOGLOBIN 8.6 g/dL (12.0-16.0); MEAN CORPUSCULAR HEMOGLOBIN 31.2 pg (28-32); MEAN CORPUSCULAR HGB CONC 31.3 g/dL (31-35); MEAN CORPUSCULAR VOLUME 99.6 fL (81-99); PLATELET COUNT 207 x10e3/uL (140-360); RED BLOOD COUNT 2.76 x10e6/uL (3.6-5.1); RED CELL DISTRIBUTION WIDTH 19.7 % (11.7-14.4)
[2019-09-16 05:26] LABS: ALBUMIN 2.2 g/dL (3.5-5.0); ALBUMIN/GLOBULIN RATIO 0.7 (0.8-2.0); ANION GAP 13.5 mmol/L (8-16); CALCIUM 8.3 mg/dL (8.4-10.2); CREATININE, SERUM 1.3 mg/dL (0.57-1.11); POTASSIUM 3.5 mmol/L (3.5-5.1)
[2019-09-16] MEDS: INSULIN LISPRO 100 UNIT/1 ML 3ML VIAL SQ SCH ×4 (05:45→05:46)
[2019-09-16] MEDS: BUMETANIDE 1 MG TAB PO SCH (06:00)
--- NOTE | 2019-09-16 06:17 | NUR ---
Pt self removed her Dobhoff tube. I attempted to place a new one and Maciel CESPEDES attempted as well. Attempts were unsuccessful.
[2019-09-16] MEDS: LEVOTHYROXINE SODIUM 100 MCG/VIAL IV SCH (06:18)
--- NOTE | 2019-09-16 07:00 | NUR ---
Report given to Angy Britt RN.
--- NOTE | 2019-09-16 07:28 | Progress Note ---
DATE: SUBJECTIVE: Ms. Espinosa seems to be a little bit more alert today. There are no new problems. She still remains in intensive care unit, on Bumex drip. The patient, who remains ill in general. LABORATORY DATA: Her white count 7.42, hemoglobin 8.6, and her platelet of 197. Her sodium 146, potassium 3.8, and creatinine 1.43. MEDICATIONS: The patient, who is currently on insulin and Protonix. She is on ampicillin, dextrose, and Synthroid. PHYSICAL EXAMINATION: GENERAL: Currently alert. VITAL SIGNS: Afebrile. HEENT: Not icteric. NECK: Supple. CHEST: Crackles bilateral. COR: S1 and S2. No S3, S4, or murmur. ABDOMEN: Soft. Bowel sounds present. No tenderness. EXTREMITIES: Edema bilateral. IMPRESSION: 1. Sepsis, on admission. Clinically, looks better. The patient came in on August 23. 2. Altered mental status. 3. Possibility of meningoencephalitis. 4. Zfwrb-ft-sblaptp kidney disease. 5. Multiple wounds. 6. Congestive heart failure. 7. DNR from Infectious Disease point of view and she will continue as ordered to finish ampicillin for 3 weeks. Can change to oral. We will follow. MD GRACE Leo/ILDA /[id number]
[2019-09-16] MEDS: AMIODARONE HCL 200 MG TAB PO SCH (09:00)
[2019-09-16] MEDS: INSULIN GLARGINE 100 UNITS/ML VIAL SQ SCH (09:00)
--- NOTE | 2019-09-16 09:09 | Diagnostic Imaging Report ---
TECHNIQUE: Frontal view of the chest. INDICATION: ^Resp Distress ^[id number] ^0645 ^Y COMPARISON: Prior day. IMPRESSION: Lines and hardware: Interval removal of the enteric catheter. Otherwise, stable. Heart and mediastinum: Stable. Lungs and pleura: Stable right basilar patchy airspace opacity with moderate right and small left pleural effusions. Left midlung zone platelike atelectasis. No pneumothorax. Soft tissues and bones: No acute abnormality. Signed by: Lukasz Anderson MD on 09/16/2019 9:06 AM
[2019-09-16] MEDS: IRON SUCROSE 100 MG in SODIUM CHLORIDE 0.9% 100 ML 100 ML IV SCH (09:13)
[2019-09-16] MEDS: AMPICILLIN SOD 2 GM/NS 100ML 100 ML IV SCH (09:13)
[2019-09-16] MEDS: COLLAGENASE OINTMENT 30 GM TUBE TOP SCH (09:13)
[2019-09-16] MEDS: BALSAM PERU/CASTOR OIL 60 GM OINT...G. TP SCH (09:14)
--- NOTE | 2019-09-16 09:33 | NUR ---
ORDERS TODAY TO TRANSFER TO [facility] MOT: [facility] ROOM 221 ([facility]) ATTENDING DR Serenity ADAMS CALL REPORT TO [phone] CM CALLED AND SPOKE WITH PT'S DTR KATHYA DENIS AT [phone] GAVE HER PT'S ROOM NUMBER AND CONFIRMED THAT SHE STILL WANTS DNR STATUS ON PT OUT OF HOSPITAL DNR ON CHART AND COPY IN PACKET COVID TEST RESULTS ALSO IN PACKET ALONG WITH COVID FORM MOT INITIATED AND IN PACKET GAVE NURSE NUMBER TO CALL REPORT
--- NOTE | 2019-09-16 09:48 | Progress Note ---
DATE: 09/16/2019 SUBJECTIVE: The patient is seen at bedside, alert and responsive to verbal command on this date and relate that she has a lot less discomfort to the right lower extremity. OBJECTIVE: VITAL SIGNS: Afebrile, pulse rate 113, respiration 31, O2 saturation 91% with nasal cannula 5 L/minute with a blood pressure of 123/91. EXTREMITIES: Ulcerations to the right lower extremity improving slowly. Some granulation tissue noted. Still some drainage. Negative foul smell. Positive cellulitis with pedal pulses diminished. LABORATORY DATA: White blood cell count of 7.44 and hemoglobin 9.6. ASSESSMENT: Multiple grade 4 ulcers, osteomyelitis with cellulitis and peripheral arterial disease. PLAN: We will continue IV antibiotics. Continue local wound care with Santyl followed by diluted wet-to-dry Betadine. Continue offloading. We will continue to follow. LANDEN Myoa/ILDA /[id number]
--- NOTE | 2019-09-16 10:13 | Progress Note ---
DATE: Cardiology Progress Note SUBJECTIVE: The patient feeling better, off BiPAP. No chest pain. Shortness of breath has improved. OBJECTIVE: VITAL SIGNS: Temperature is 98.2, heart rate is 113, respiratory rate is 23, blood pressure is 140/79, and oxygen saturation is 100% on 5 L nasal cannula. GENERAL: She is a chronically ill-appearing elderly woman, lying comfortably in bed, in no apparent distress. CARDIOVASCULAR: She is tachycardic with ectopy. LUNGS: Rhonchi throughout both lung [place]ado. ABDOMEN: Soft and nontender. EXTREMITIES: Edematous with multiple wounds that are wrapped and dressed. CARDIOVASCULAR MEDICATIONS: Reviewed. LABORATORY DATA: Reviewed. Hemoglobin is 8.6. Creatinine is 1.3. Chest x-ray reviewed with bilateral pleural effusions. Telemetry monitoring revealed atrial fibrillation with ventricular paced rhythm. IMPRESSION: 1. Acute respiratory failure with hypoxia. 2. Sepsis. 3. Lower extremity foot ulcers. 4. Peripheral arterial disease. 5. Chronic atrial fibrillation, status post AV node ablation and pacemaker implantation. 6. Coronary artery disease. 7. Congestive heart failure. 8. Chronic kidney disease. RECOMMENDATIONS: Continue diuresis as you are. Monitor ins and outs. Continue to monitor daily labs and creatinine. Continue amiodarone. We can add metoprolol today for better heart rate control. Local wound care per Podiatry. The patient is not a candidate for peripheral angiogram at this time given her current debilitation and DNR status. Kirby Ty DO BM/MODL /[id number]
--- NOTE | 2019-09-16 11:00 | NUR ---
report called to ziggy in [place]. pt left via [facility]. family notified per case management.
--- NOTE | 2019-09-16 12:10 | Progress Note ---
DATE: SUBJECTIVE: Ms. Alan Johnson is going to [place] today. She remains about the same. She is extremely weak. No new complaint, little bit lethargic, but follows simple commands. The patient is feeling a little better, off BiPAP. REVIEW OF SYSTEMS: Otherwise just weak. OBJECTIVE: VITAL SIGNS: Stable, afebrile, temperature 98.2, heart rate 100, respiration 23, blood pressure 140/79, and O2 saturation 100% on 5 L nasal cannula. HEENT: Normocephalic. Not icteric. NECK: Supple. CHEST: Few crackles bilateral. HEART: S1 and S2. No S3, S4, or murmur. ABDOMEN: Soft. Bowel sounds present. No tenderness. EXTREMITIES: Generalized edema bilateral. LABORATORY DATA: Reviewed. Chart reviewed. Cultures also reviewed. White count 7.4 and hemoglobin 8.7. Sodium 144, potassium 3.5, and creatinine 1.3. IMPRESSION: 1. Chronic kidney disease, [id number]. 2. Generalized edema. 3. Congestive heart failure. 4. Metabolic encephalopathy. 5. Diabetes mellitus. 6. Sepsis, on admission, Streptococcal bacteremia. 7. Encephalitis, probably viral. 8. The plan is to finish ampicillin for 3 weeks total. Continue supportive care. PT/OT. 9. Multiple wounds, concerned about osteomyelitis of the foot. Continue with local care. 10. Prognosis is guarded. 11. Discussed with the medical team at length. MD GRACE Leo/ILDA /[id number]
== END 2019-09-16 12:08 | DRG 853 ==
LOC: ER 16:44 → ERHOLD 18:36 → ICU 21:15 → IMCU 08-28 07:24 → ICU 09-12 21:15
PROVIDERS: ADMIT Internal Medicine; ATTEND Internal Medicine
PROC: 8E0ZXY6 Isolation (ICD-10-PCS; 2019-08-24)
PROC: 02HV33Z Insertion of Infusion Device into Superior Vena Cava, Percutaneous Approach (ICD-10-PCS; 2019-08-25)
PROC: B548ZZA Ultrasonography of Superior Vena Cava, Guidance (ICD-10-PCS; 2019-08-25)
PROC: 0QBL0ZZ Excision of Right Tarsal, Open Approach (ICD-10-PCS; 2019-08-28)
PROC: 0QBG0ZZ Excision of Right Tibia, Open Approach (ICD-10-PCS; 2019-08-28)
PROC: 0KBV0ZZ Excision of Right Foot Muscle, Open Approach (ICD-10-PCS; 2019-08-28)
PROC: 0QBL0ZZ Excision of Right Tarsal, Open Approach (ICD-10-PCS; 2019-08-30)
PROC: 0QBG0ZZ Excision of Right Tibia, Open Approach (ICD-10-PCS; 2019-08-30)
PROC: 0LBV0ZZ Excision of Right Foot Tendon, Open Approach (ICD-10-PCS; 2019-08-30)
PROC: 009U3ZX Drainage of Spinal Canal, Percutaneous Approach, Diagnostic (ICD-10-PCS; 2019-09-04)
PROC: B01B1ZZ Fluoroscopy of Spinal Cord using Low Osmolar Contrast (ICD-10-PCS; 2019-09-04)
PROC: 0KBV0ZZ Excision of Right Foot Muscle, Open Approach (ICD-10-PCS; principal; 2019-09-05)
PROC: 0LBV0ZZ Excision of Right Foot Tendon, Open Approach (ICD-10-PCS; 2019-09-05)
PROC: 5A09357 Assistance with Respiratory Ventilation, Less than 24 Consecutive Hours, Continuous Positive Airway Pressure (ICD-10-PCS; 2019-09-13)
DX: A40.1 Sepsis due to streptococcus, group B (principal); E11.10 Type 2 diabetes mellitus with ketoacidosis without coma; G93.41 Metabolic encephalopathy; G92 Toxic encephalopathy; J96.01 Acute respiratory failure with hypoxia; I50.23 Acute on chronic systolic (congestive) heart failure; S22.43XA Multiple fractures of ribs, bilateral, initial encounter for closed fracture; S22.021A Stable burst fracture of second thoracic vertebra, initial encounter for closed fracture; N17.9 Acute kidney failure, unspecified; L03.115 Cellulitis of right lower limb; I13.0 Hypertensive heart and chronic kidney disease with heart failure and stage 1 through stage 4 chronic kidney disease, or unspecified chronic kidney disease; I50.42 Chronic combined systolic (congestive) and diastolic (congestive) heart failure; N39.0 Urinary tract infection, site not specified; E87.2 Acidosis; E87.1 Hypo-osmolality and hyponatremia; K92.2 Gastrointestinal hemorrhage, unspecified; E44.0 Moderate protein-calorie malnutrition; M86.171 Other acute osteomyelitis, right ankle and foot; F05 Delirium due to known physiological condition; B37.49 Other urogenital candidiasis; A86 Unspecified viral encephalitis; E87.6 Hypokalemia; N18.3 Chronic kidney disease, stage 3 (moderate); Z95.1 Presence of aortocoronary bypass graft; Z95.5 Presence of coronary angioplasty implant and graft; E11.42 Type 2 diabetes mellitus with diabetic polyneuropathy; E11.51 Type 2 diabetes mellitus with diabetic peripheral angiopathy without gangrene; E11.621 Type 2 diabetes mellitus with foot ulcer; I48.0 Paroxysmal atrial fibrillation; R65.20 Severe sepsis without septic shock; E03.9 Hypothyroidism, unspecified; Z87.440 Personal history of urinary (tract) infections; Z87.898 Personal history of other specified conditions; Z90.49 Acquired absence of other specified parts of digestive tract; Z95.810 Presence of automatic (implantable) cardiac defibrillator; Z88.5 Allergy status to narcotic agent; Z88.0 Allergy status to penicillin; Z88.8 Allergy status to other drugs, medicaments and biological substances; Z83.3 Family history of diabetes mellitus; Z82.49 Family history of ischemic heart disease and other diseases of the circulatory system; L97.514 Non-pressure chronic ulcer of other part of right foot with necrosis of bone; B96.20 Unspecified Escherichia coli [E. coli] as the cause of diseases classified elsewhere; Z11.59 Encounter for screening for other viral diseases; M10.9 Gout, unspecified; E11.69 Type 2 diabetes mellitus with other specified complication; F03.90 Unspecified dementia, unspecified severity, without behavioral disturbance, psychotic disturbance, mood disturbance, and anxiety; T36.1X5A Adverse effect of cephalosporins and other beta-lactam antibiotics, initial encounter; Y92.230 Patient room in hospital as the place of occurrence of the external cause; R13.10 Dysphagia, unspecified
CPT/HCPCS: 36415; 36600; 51701; 62328; 70450; 71045; 74018; 74176; 76937; 80048; 80053; 80076; 80202; 81001; 82140; 82150; 82270; 82550; 82553; 82607; 82728; 82746; 82805; 82945; 82948; 83036; 83540; 83605; 83690; 83735; 83874; 83880; 83970; 84100; 84157; 84260; 84436; 84439; 84443; 84466; 84484; 84550; 85007; 85025; 85027; 85045; 85610; 85730; 86039; 86235; 86850; 86900; 86920; 87040; 87071; 87086; 87186; 87205; 87529; 87635; 89051; 93005; 93306; 93925; 94640; 94660; 95812; 96372; 99251; 99285; C1751; C1769; J0360; J0692; J0696; J1200; J1450; J1630; J1650; J1720; J1756; J1815; J1817; J1940; J2001; J2543; J3370; J3475; J3480; J7030; J7040; J7050; J7070; J7799; P9016; P9047